=== PATIENT | male | born 1940 | race Caucasian/White ===

== ENCOUNTER 2018-11-29 22:23 | Inpatient (IN) | payer OTHER ==
--- OUTSIDE RECORDS SUMMARY | 2018-11-29 22:26 | XMS REPORT | Clinical Summary ---
:1940 Author Organization [facility] Address [address] [place] [address] Care Team Providers Name Role Phone Paula Primary Care Provider Allergies No Known Allergies Medications Not on file Active Problems Not on file Social History Tobacco Use Types Packs/Day Years Used Date Never Assessed Sex Assigned at Date Recorded Not on file Job Start Date Occupation Industry Not on file Not on file Not on file Travel History Travel Start Travel End No recent travel history available. Last Filed Vital Signs Not on file Plan of Treatment Not on file Results Not on fileafter 11/28/2017 Insurance Payer Benefit Plan / Subscriber ID Type Phone Address Group [employer] - MEDICARE [employer] MED[employer]ARE HMO xxxxxxxx [phone] [address] [id number] [address] (Home) [place] [address]
--- OUTSIDE RECORDS SUMMARY | 2018-11-29 22:26 | XMS REPORT | Clinical Summary ---
:1940 Author Organization [facility] Address [address] [place] [address] Care Team Providers Name Role Phone Jaspal Ramos MD Primary Care Provider Allergies No Known Allergies Medications Medication Sig Dispensed Refills Start Date End Date Status atorvastatin Take 40 mg by 0 08/14/2018 Active (LIPITOR) 40 MG mouth every tablet evening. metoprolol tartrate TAKE 1/2 TABLET 3 08/21/2018 Active (LOPRESSOR) 100 mg BY MOUTH 2 TIMES tablet EVERY DAY allopurinol Take 300 mg by 1 08/08/2018 Active (ZYLOPRIM) 300 MG mouth daily. tablet pantoprazole Take 40 mg by 1 10/11/2018 Active (PROTONIX) 40 MG EC mouth daily. tablet aspirin (ECOTRIN) 81 Take 81 mg by 0 Active MG enteric coated mouth daily. tablet isosorbide Take 30 mg by 0 Active mononitrate (IMDUR) mouth every 30 MG 24 hr tablet morning. traMADol (ULTRAM) 50 Take 1 tablet (50 30 tablet 0 11/26/2018 12/01/2018 Active mg tablet mg total) by mouth every 6 (six) hours as needed for severe pain for up to 5 days. SUPREP BOWEL PREP Take 2 Bottles 354 mL 0 11/13/2018 11/13/2018 KIT 17.5-3.13-1.6 (354 mL total) by gram recon soln mouth once for 1 dose. Take as directed by physician Active Problems Problem Noted Date Colon cancer 11/21/2018 Encounters Date Type Specialty Care Team Description 11/22/2018 Anesthesia Event General Surgery Kassidy Hansen, FLOATMAN 11/22/2018 Surgery General Surgery Jonn Mora MD LAPAROSCOPY, REVISION OF ANASTOMOSIS, DRAINAGE OF HEMATOMA 11/21/2018 Anesthesia Event General Surgery Shanna Machado, LINO 11/21/2018 Surgery General Surgery Jonn Mora SINGLE INCISION MD Toño LAPAROSCOPIC RIGHT COLECTOMY 11/21/2018 - Hospital Encounter General Surgery Lobito Yañez Cancer of ascending 11/26/2018 [facility] colon (HCC) Jonn Nuno MD 11/15/2018 Pre-Admit Testing Pre-Admission Jonn Mora Preop testing Appointment Testing MD Toño (Primary Dx) 11/13/2018 Orders Only General Surgery Jonn Mora MD 10/30/2018 Orders Only General Surgery Jonn Mora MD 10/24/2018 Pre-Admit Testing Pre-Admission Jonn Mora Preop testing Appointment Testing MD Toño (Primary Dx) 10/24/2018 Office Visit General Surgery Jonn Mora Malignant neoplasm MD Toño of ascending colon (HCC) (Primary Dx) after 11/28/2017 Family History Medical History Relation Name Comments Hypertension Father Stroke Father Relation Name Status Comments Father Social History Tobacco Use Types Packs/Day Years Used Date Former Smoker Cigarettes 42 Quit: 1997 Smokeless Tobacco: Never Used Alcohol Use Drinks/Week oz/Week Comments Yes when young Alcohol Habits Answer Date Recorded How often do you have a drink containing alcohol? Never 10/24/2018 How many drinks containing alcohol do you have on a typical Not asked day when you are drinking? How often do you have six or more drinks on one occasion? Not asked Sex Assigned at Date Recorded Not on file Job Start Date Occupation Industry Not on file Not on file Not on file Travel History Travel Start Travel End No recent travel history available. Last Filed Vital Signs Vital Sign Reading Time Taken Blood Pressure 129/59 11/26/2018 12:13 PM WEATHER REPORTER Pulse 96 11/26/2018 12:13 PM WEATHER REPORTER Temperature 36.9 C (98.5 F) 11/26/2018 12:13 PM WEATHER REPORTER Respiratory Rate 20 11/26/2018 12:13 PM WEATHER REPORTER Oxygen Saturation 94% 11/26/2018 12:13 PM WEATHER REPORTER Inhaled Oxygen Concentration - - Weight 84.2 kg (185 lb 11.2 oz) 11/21/2018 5:15 AM WEATHER REPORTER Height 182.9 cm (6') 11/21/2018 5:15 AM WEATHER REPORTER Body Mass Index 25.19 11/21/2018 5:15 AM WEATHER REPORTER Plan of Treatment Date Type Specialty Care Team Description 12/11/2018 Office Visit General Surgery Jonn Mora MD [address] [facility] [address] [facility] [place], [place] [id number] Health Maintenance Due Date Last Done Comments SHINGLES VACCINES (1 of 2) 1989 PNEUMOCOCCAL POLYSACCHARIDE VACCINE AGE 65 AND OVER 2004 PNEUMOCOCCAL-13 2004 INFLUENZA VACCINE 06/12/2018 Procedures Procedure Name Priority Date/Time Associated Comments Diagnosis ESTIMATED GFR Routine 11/26/2018 5:38 Results for this AM WEATHER REPORTER procedure are in the results section. HEMOGLOBIN & Routine 11/26/2018 5:38 Results for this HEMATOCRIT AM WEATHER REPORTER procedure are in the results section. BASIC METABOLIC PANEL Routine 11/26/2018 5:38 Results for this AM WEATHER REPORTER procedure are in the results section. ESTIMATED GFR Routine 11/25/2018 9:03 Results for this AM WEATHER REPORTER procedure are in the results section. BASIC METABOLIC PANEL Routine 11/25/2018 9:03 Results for this AM WEATHER REPORTER procedure are in the results section. HC COMPLETE BLD COUNT Routine 11/25/2018 7:30 Results for this W/AUTO DIFF AM WEATHER REPORTER procedure are in the results section. ESTIMATED GFR Routine 11/24/2018 4:05 Results for this AM WEATHER REPORTER procedure are in the results section. PHOSPHORUS LEVEL Routine 11/24/2018 4:05 Results for this AM WEATHER REPORTER procedure are in the results section. MAGNESIUM LEVEL Routine 11/24/2018 4:05 Results for this AM WEATHER REPORTER procedure are in the results section. BASIC METABOLIC PANEL Routine 11/24/2018 4:05 Results for this AM WEATHER REPORTER procedure are in the results section. HC COMPLETE BLD COUNT Routine 11/24/2018 4:05 Results for this W/AUTO DIFF AM WEATHER REPORTER procedure are in the results section. HEMOGLOBIN & Timed 11/23/2018 3:00 Results for this HEMATOCRIT PM WEATHER REPORTER procedure are in the results section. HC COMPLETE BLD COUNT Routine 11/23/2018 4:05 Results for this W/AUTO DIFF AM WEATHER REPORTER procedure are in the results section. ESTIMATED GFR Routine 11/23/2018 4:00 Results for this AM WEATHER REPORTER procedure are in the results section. PHOSPHORUS LEVEL Routine 11/23/2018 4:00 Results for this AM WEATHER REPORTER procedure are in the results section. MAGNESIUM LEVEL Routine 11/23/2018 4:00 Results for this AM WEATHER REPORTER procedure are in the results section. BASIC METABOLIC PANEL Routine 11/23/2018 4:00 Results for this AM WEATHER REPORTER procedure are in the results section. HC COMPLETE BLD COUNT Timed 11/22/2018 9:15 Results for this W/AUTO DIFF PM WEATHER REPORTER procedure are in the results section. ESTIMATED GFR Timed 11/22/2018 8:00 Results for this PM WEATHER REPORTER procedure are in the results section. BASIC METABOLIC PANEL Timed 11/22/2018 8:00 Results for this PM WEATHER REPORTER procedure are in the results section. SURGICAL PATHOLOGY Routine 11/22/2018 5:30 Results for this REQUEST PM WEATHER REPORTER procedure are in the results section. TRANSFUSE RED BLOOD Routine 11/22/2018 5:20 CELLS PM WEATHER REPORTER TRANSFUSE RED BLOOD STAT 11/22/2018 4:09 CELLS PM WEATHER REPORTER OR AN EMERGENT Routine 11/22/2018 3:52 ENDOTRACHEAL AIRWAY PM WEATHER REPORTER Procedure Note - Kassidy Hansen CRNA - 11/22/2018 3:52 PM WEATHER REPORTER ANESTHESIA INTUBATION Date/Time: 11/22/2018 3:25 PM Performed by: Kassidy Hansen CRNA Authorized by: Felipe Trejo MD Location: OR Urgency: Emergent Difficult Airway: No Anesthesiologist: Rodrigo Oates MD Resident/FLOATMAN/AA: Kassidy Hansen CRNA Performed by: resident/FLOATMAN/AA Consent Cannot be Obtained Due to Urgency: Yes Verbal Consent Obtained: No Written Consent Obtained: No Consent Given By: Patient Risks and Benefits were Discussed: No Patient Identity Confirmed by: Verbally with patient, arm band and hospital- assigned identification number Preoxygenated with 100% O2: Yes C-spine Precautions Maintained Throughout: No Mask Ventilation: Easy mask Final Airway Type: Endotracheal airway Final Endotracheal Airway: ETT Technique Used: Direct laryngoscopy Devices/Methods Used in Placement: Intubating stylet Insertion Site: Oral Blade Type: Ryan Laryngoscope Blade/Videolaryngoscope Blade Size: 3 ETT Size (mm): 8.0 Measured from: Lips ETT to Lips (cm): 24 Placement Verified by: CO2 detection, direct visualization and equal breath sounds Laryngoscopic view: Grade I - full view of glottis Rapid Sequence Induction (RSI): No Modified RSI: No Number of Attempts at Approach: 2 RYAN 2 UNSUCCEFULL. RYAN 3 SUCCESSFULL SIGMOIDECTOMY, 11/22/2018 2:50 PM bleeding LAPAROSCOPIC WEATHER REPORTER ESTIMATED GFR Timed 11/22/2018 12:15 PM Results for this WEATHER REPORTER procedure are in the results section. HC COMPLETE BLD COUNT Timed 11/22/2018 12:15 PM Results for this W/AUTO DIFF WEATHER REPORTER procedure are in the results section. PHOSPHORUS LEVEL Timed 11/22/2018 12:15 PM Results for this WEATHER REPORTER procedure are in the results section. BASIC METABOLIC PANEL Timed 11/22/2018 12:15 PM Results for this WEATHER REPORTER procedure are in the results section. ESTIMATED GFR Routine 11/22/2018 3:40 AM Results for this WEATHER REPORTER procedure are in the results section. PHOSPHORUS LEVEL Routine 11/22/2018 3:40 AM Results for this WEATHER REPORTER procedure are in the results section. MAGNESIUM LEVEL Routine 11/22/2018 3:40 AM Results for this WEATHER REPORTER procedure are in the results section. BASIC METABOLIC PANEL Routine 11/22/2018 3:40 AM Results for this WEATHER REPORTER procedure are in the results section. HC COMPLETE BLD COUNT Routine 11/22/2018 3:00 AM Results for this W/AUTO DIFF WEATHER REPORTER procedure are in the results section. SURGICAL PATHOLOGY REQUEST Routine 11/21/2018 1:12 PM Results for this WEATHER REPORTER procedure are in the results section. OR AN ELECTIVE Routine 11/21/2018 8:35 AM ENDOTRACHEAL AIRWAY WEATHER REPORTER Procedure Note - Yaima Krause CRNA - 11/21/2018 8:35 AM WEATHER REPORTER Airway Date/Time: 11/21/2018 8:02 AM Performed by: Yaima Krause CRNA Authorized by: Felipe Trejo MD Location: OR Urgency: Elective Difficult Airway: No Anesthesiologist: Felipe Trejo MD Resident/AMANDA/AA: Yaima Krause CRNA Performed by: resident/AMANDA/AA Preoxygenated with 100% O2: Yes C-spine Precautions Maintained Throughout: Yes Mask Ventilation: Easy mask (with 100mm OPA) Final Airway Type: Endotracheal airway Final Endotracheal Airway: ETT Cuffed: Yes Technique Used: Direct laryngoscopy Insertion Site: Oral Blade Type: Ryan Laryngoscope Blade/Videolaryngoscope Blade Size: 2 ETT Size (mm): 8.0 Cuff at minimum occlusion pressure: Yes Measured from: Gums ETT to Gums (cm): 22 Placement Verified by: CO2 detection, direct visualization and equal breath sounds Laryngoscopic view: Grade I - full view of glottis Rapid Sequence Induction (RSI): No Modified RSI: No Number of Attempts at Approach: 2 Eyes taped at LOC and prior to any airway manipulation. First attempt by LEONOR Staples with MAC 3 blade no view obtained, second attempt by Trevor Mclean CRNA with Ryan 2 grade 1 view, cords clear, ETT passed easily. MAGNESIUM LEVEL STAT 11/21/2018 8:25 AM WEATHER REPORTER IONIZED CALCIUM, ARTERIAL STAT 11/21/2018 8:25 AM WEATHER REPORTER GLUCOSE LEVEL, SYRINGE STAT 11/21/2018 8:25 AM WEATHER REPORTER HEMOGLOBIN, SYRINGE STAT 11/21/2018 8:25 AM WEATHER REPORTER POTASSIUM, SYRINGE STAT 11/21/2018 8:25 AM WEATHER REPORTER SODIUM LEVEL, SYRINGE STAT 11/21/2018 8:25 AM WEATHER REPORTER ARTERIAL BLOOD GAS STAT 11/21/2018 8:25 AM WEATHER REPORTER LACTIC ACID, SYRINGE STAT 11/21/2018 8:25 AM WEATHER REPORTER ARTERIAL LINE Routine 11/21/2018 8:14 AM WEATHER REPORTER Procedure Note - Felipe Trejo MD - 11/21/2018 8:14 AM WEATHER REPORTER Arterial line Performed by: Felipe Trejo MD Authorized by: Felipe Trejo MD Patient Location: OR Staff: Performed by: Anesthesiologist Pre-procedure: patient identified, IV checked, site and side verified, risks and benefits discussed, procedure verified, surgical consent complete, patient position confirmed, monitors and equipment checked and pre-op evaluation complete MSBT: antiseptic used, all elements of maximal sterile barrier technique followed, hand hygiene performed, cap/gown used by other personnel and solutions labeled Indications: Indications: hemodynamic monitoring Anesthesia: Anesthesia: General Procedure Details: Arterial Line placement: Placed post induction Line placement site: Radial Line placement side: Right Arterial line gauge: 20 G Number of attempts: 1 Ultrasound guidance used: No Post-procedure: Post-procedure: Sterile dressing applied Post procedure circulation, sensation, movement: Unchanged and normal Patient tolerance: Patient tolerated the procedure well with no immediate complications COLECTOMY, PARTIAL, 11/21/2018 7:30 AM WEATHER REPORTER Cancer of ascending colon LAPAROSCOPIC (HCC) Special Needs EST 2 HRS, TF~1400, REQ 1200 START ECG PRE/POST OP Routine 11/15/2018 1:02 PM Preop testing Results for this WEATHER REPORTER procedure are in the results section. CARCINOEMBRYONIC ANTIGEN Routine 11/15/2018 12:52 PM Preop testing Results for this (CEA) WEATHER REPORTER procedure are in the results section. PREPARE RBC Routine 11/15/2018 12:43 PM Results for this WEATHER REPORTER procedure are in the results section. PREPARE RBC Routine 11/15/2018 12:43 PM Results for this WEATHER REPORTER procedure are in the results section. TYPE AND SCREEN Routine 11/15/2018 12:43 PM Preop testing Results for this WEATHER REPORTER procedure are in the results section. ESTIMATED GFR Routine 10/24/2018 1:36 PM Results for this WEATHER REPORTER procedure are in the results section. COMPREHENSIVE METABOLIC Routine 10/24/2018 1:36 PM Preop testing Results for this PANEL WEATHER REPORTER procedure are in the results section. CBC HEMOGRAM Routine 10/24/2018 1:36 PM Preop testing Results for this WEATHER REPORTER procedure are in the results section. after 11/28/2017 Results Estimated GFR (11/26/2018 5:38 AM WEATHER REPORTER)Only the most recent of8 resultswithin the time period is included. Estimated GFR 81 mL/min/1.73 m2 [facility] Comment: HOSPITAL CatergoryUnitsInterpretation G1 >=90 Normal or high G2 60-89Mildly decreased [id number] to moderately decreased [id number] to severely decreased G4 15-29Severely decreased G5 <15Kidney failure The eGFR was calculated using the Chronic Kidney Disease Epidemiology Collaboration (CKD-EPI) equation. Interpretation is based on recommendations of the National Kidney Foundation-Kidney Disease Outcomes Quality Initiative (NKF-KDOQI) published in 2014. Specimen Plasma specimen Performing Organization Address City/State/Zipcode Phone Number [facility] DEPARTMENT OF PATHOLOGY AND [address] [place] [address] GENOMIC MEDICINE [address] [address] Hemoglobin & hematocrit (11/26/2018 5:38 AM WEATHER REPORTER)Only the most recent of2 resultswithin the time period is included. HGB 8.2 (L) 14.0 - 18.0 g/dL [facility] HCT 24.3 (L) 41.0 - 51.0 % [facility] Specimen Blood Performing Organization Address City/[facility] Phone [facility] DEPARTMENT OF PATHOLOGY AND [address] [address] Basic metabolic panel (11/26/2018 5:38 AM WEATHER REPORTER)Only the most recent of7 resultswithin the time period is included. Sodium 137 135 - 148 mEq/L [facility] Potassium 3.6 3.5 - 5.0 mEq/L [facility] Chloride 105 98 - 112 mEq/L [facility] CO2 23 (L) 24 - 31 mEq/L [facility] Anion gap 9@ANIO 7 - 15 mEq/L [facility] BUN 23 8 - 23 mg/dL [facility] Creatinine 0.88 0.70 - 1.20 mg/dL [facility] Glucose 106 (H) 65 - 99 mg/dL [facility] Calcium 8.3 (L) 8.8 - 10.2 mg/dL [facility] Specimen Plasma specimen Performing Organization Address City/[facility] Phone Number [facility] DEPARTMENT OF PATHOLOGY AND [address] [place] [address] CBC with platelet and differential (11/25/2018 7:30 AM WEATHER REPORTER)Only the most recent of6 resultswithin the time period is included. WBC 11.48 (H) 4.50 - 11.00 k/uL [facility] RBC 2.61 (L) 4.40 - 6.00 m/uL [facility] HGB 8.5 (L) 14.0 - 18.0 g/dL [facility] HCT 24.9 (L) 41.0 - 51.0 % [facility] MCV 95.4 82.0 - 100.0 fL [facility] MCH 32.6 27.0 - 34.0 pg [facility] MCHC 34.1 31.0 - 37.0 g/dL [facility] RDW - SD 58.3 (H) 37.0 - 55.0 fL [facility] MPV 10.3 8.8 - 13.2 fL [facility] Platelet count 101 (L) 150 - 400 k/uL [facility] Nucleated RBC 0.00 /100 WBC [facility] Neutrophils 80.0 (H) 39.0 - 69.0 % [facility] Lymphocytes 8.9 (L) 25.0 - 45.0 % [facility] Monocytes 8.9 0.0 - 10.0 % [facility] Eosinophils 1.1 0.0 - 5.0 % [facility] Basophils 0.3 0.0 - 1.0 % [facility] Immature granulocytes 0.8Comment: "Immature 0.0 - 1.0 % [facility] granulocytes" HOSPITAL (promyelocytes, myelocytes, metamyelocytes) Specimen Blood Performing Organization Address City/[facility] Phone Number [facility] DEPARTMENT OF PATHOLOGY AND [address] [place] [address] Phosphorus level (11/24/2018 4:05 AM WEATHER REPORTER)Only the most recent of4 resultswithin the time period is included. Phosphorus 1.8 (L) 2.4 - 4.5 mg/dL [facility] Specimen Plasma specimen Performing Organization Address City/[facility] Phone Number [facility] DEPARTMENT OF PATHOLOGY AND [address] [place] [address] Magnesium level (11/24/2018 4:05 AM WEATHER REPORTER)Only the most recent of4 resultswithin the time period is included. Magnesium 1.9 1.6 - 2.4 mg/dL [facility] Specimen Plasma specimen Performing Organization Address City/[facility] Phone Number [facility] DEPARTMENT OF PATHOLOGY AND [address] [place] [address] Surgical pathology request (11/22/2018 5:30 PM WEATHER REPORTER)Only the most recent of2 resultswithin the time period is included. [facility] DEPARTMENT OF PATHOLOGY AND GENOMIC MEDICINE Surgical pathology report See link below for PDF [facility] DEPARTMENT OF Lab Report PATHOLOGY AND GENOMIC MEDICINE Result status This is Final Report [facility] DEPARTMENT OF for [id number] PATHOLOGY AND GENOMIC MEDICINE Performing Organization Address City/[facility]/Zipcode Phone Number [facility] DEPARTMENT OF PATHOLOGY AND [address] [place] [address] GENOMIC MEDICINE Transfuse RBC (11/22/2018 5:20 PM WEATHER REPORTER)Only the most recent of2 resultswithin the time period is included.Sodium level, syringe (11/21/2018 8:25 AM WEATHER REPORTER) Sodium, syringe 144 135 - 148 mEq/L [facility] Specimen Blood Performing Organization Address City/State/Zipcode Phone Number [facility] DEPARTMENT OF PATHOLOGY AND [address] [place] [phone] Potassium, syringe (11/21/2018 8:25 AM WEATHER REPORTER) Potassium, syringe 3.3 (L) 3.5 - 5.0 mEq/L [facility] Specimen Blood Performing Organization Address [facility] Phone Number [facility] DEPARTMENT OF PATHOLOGY AND [address] [place] [phone] Lactic acid, syringe (11/21/2018 8:25 AM WEATHER REPORTER) Lactic acid, syringe 0.9 0.5 - 2.2 mmol/L [facility] Specimen Blood Performing Organization Address [facility] Phone Number [facility] DEPARTMENT OF PATHOLOGY AND [address] [place] [phone] Ionized calcium, arterial (11/21/2018 8:25 AM WEATHER REPORTER) Ionized calcium, arterial 1.05 (L) 1.11 - 1.32 mmol/L [facility] Specimen Blood Performing Organization Address City/[facility] Phone Number [facility] DEPARTMENT OF PATHOLOGY AND [address] [place] [phone] Hemoglobin, syringe (11/21/2018 8:25 AM WEATHER REPORTER) Hemoglobin, syringe 11.7 (L) 14.0 - 18.0 g/dL [facility] Specimen Blood Performing Organization Address City/State/Zipcode Phone Number [facility] DEPARTMENT OF PATHOLOGY AND [address] [place] [phone] [address] Glucose level, syringe (11/21/2018 8:25 AM WEATHER REPORTER) Glucose, syringe 85 65 - 99 mg/dL [facility] Specimen Blood Performing Organization Address City/[facility] Phone Number [facility] DEPARTMENT OF PATHOLOGY AND [address] [place] [phone] [address] Arterial blood gas (11/21/2018 8:25 AM WEATHER REPORTER) pH, arterial 7.37 7.35 - 7.45 [facility] pCO2, arterial 36 35 - 45 mmHg [facility] pO2, arterial 196 (H) 80 - 90 mmHg [facility] Bicarbonate, arterial 20.4 (L) 21.0 - 28.0 mmol/L [facility] Base excess, arterial -4 (L) -2 - 2 mEq/L [facility] O2 saturation, arterial 99 95 - 100 % [facility] Specimen Blood Performing Organization Address [facility] Phone Number [facility] DEPARTMENT OF PATHOLOGY AND [address] [place] [phone] [place] [phone] ECG Pre/Post Op (11/15/2018 1:02 PM WEATHER REPORTER) Ventricular rate 68 [facility] Atrial rate 68 [facility] OR interval 248 [facility] QRSD interval 110 [facility] QT interval 424 [facility] QTC interval 450 [facility] P axis 1 20 [facility] QRS axis 1 -5 [facility] T wave axis 2 [facility] EKG impression Sinus rhythm with 1st degree AV [facility] block-Anteroseptal infarct , age undetermined-Abnormal ECG-No previous ECGs available- Narrative Performed At Performing Organization Address City/[facility] Phone Number [facility] MUSE [address] [place] [phone] Carcinoembryonic antigen (CEA) (11/15/2018 12:52 PM WEATHER REPORTER) CEA 2.8 0.0 - 3.8 ng/mL [facility] Comment: Reference range for heavy smokers:0.0 - 5.5 ng/mL The JENNY Kathie 8000 CEA immunoassay was used. Results obtained with different assay methods or kits should not be used interchangeably and may be different. Specimen Serum Performing Organization Address City/[facility] Phone Number [facility] DEPARTMENT OF PATHOLOGY AND [address] [place] [address] Prepare RBC (11/15/2018 12:43 PM WEATHER REPORTER)Only the most recent of2 resultswithin the time period is included. Product name Red Blood Cells -1, [facility] Unit number [id number] [facility] Product code [id number] [facility] Dispense status Transfused [facility] Blood expiration date [facility] Blood type code 6200 [facility] Blood type A POSITIVE [facility] Product name Red Blood Cells 1, [facility] Unit number [id number] [facility] Product code [id number] [facility] Dispense status Returned to BB not [facility] Blood expiration date [facility] Blood type code 6200 [facility] Blood type A POSITIVE [facility] Performing Organization Address City/[facility] Phone Number [facility] DEPARTMENT OF PATHOLOGY AND [address] [place] [address] Type and screen (11/15/2018 12:43 PM WEATHER REPORTER) ABO grouping A [facility] Rh type POS [facility] Antibody screen (gel) NEG [facility] Specimen Blood Performing Organization Address City/[facility] Phone Number [facility] DEPARTMENT OF PATHOLOGY AND [address] [place] [address] CBC hemogram (10/24/2018 1:36 PM WEATHER REPORTER) WBC 7.84 4.50 - 11.00 k/uL [facility] RBC 3.88 (L) 4.40 - 6.00 m/uL [facility] HGB 13.0 (L) 14.0 - 18.0 g/dL [facility] HCT 38.0 (L) 41.0 - 51.0 % [facility] MCV 97.9 82.0 - 100.0 fL [facility] MCH 33.5 27.0 - 34.0 pg [facility] MCHC 34.2 31.0 - 37.0 g/dL [facility] RDW - SD 50.7 37.0 - 55.0 fL [facility] MPV 10.2 8.8 - 13.2 fL [facility] Platelet count 162 150 - 400 k/uL [facility] Nucleated RBC 0.00 /100 WBC [facility] Specimen Blood Performing Organization Address City/State/Zipcode Phone Number [facility] DEPARTMENT OF PATHOLOGY AND [address] [place] [address] GENOMIC MEDICINE [address] [address] Comprehensive metabolic panel (10/24/2018 1:36 PM WEATHER REPORTER) Sodium 139 135 - 148 mEq/L [facility] Potassium 4.2 3.5 - 5.0 mEq/L [facility] Chloride 102 98 - 112 mEq/L [facility] CO2 24 24 - 31 mEq/L [facility] Anion gap 13@ANIO 7 - 15 mEq/L [facility] BUN 14 8 - 23 mg/dL [facility] Creatinine 0.98 0.70 - 1.20 mg/dL [facility] Glucose 93 65 - 99 mg/dL [facility] Calcium 9.1 8.8 - 10.2 mg/dL [facility] Protein 6.1 (L) 6.3 - 8.3 g/dL [facility] Comment: HOSPITAL 4.6-7.0 g/dL 1 week 4.4-7.6 g/dL 7 months-1year5.1-7.3 g/dL 1-2 years5.6-7.5 g/dL >3 years6.0-8.0 g/dL 18-150 6.3-8.3 g/dL Albumin 3.5 3.5 - 5.0 g/dL [facility] A/G ratio 1.3 0.7 - 3.8 [facility] Alkaline phosphatase 95 40 - 129 U/L [facility] AST 26 10 - 50 U/L [facility] ALT 21 5 - 50 U/L [facility] Total bilirubin 1.2 0.0 - 1.2 mg/dL [facility] Specimen Plasma specimen Performing Organization Address City/State/Zipcode Phone Number [facility] DEPARTMENT OF PATHOLOGY AND [address] [place] [address] GENOMIC MEDICINE [facility] [address] [place] [address] after 11/28/2017 Insurance Payer Benefit Plan / Group Subscriber ID Type Phone Address [employer] MEDICARE AETNA MEDICARE HMO/PPO [facility] xxxxxxxx HMO ([place] [address] Advance Directives Patient has advance care planning documents, and code status on file. For more information, please contact:[address] [address] Code Status Date Activated Date Inactivated Comments Full Code 11/21/2018 1:01 PM 11/26/2018 9:19 PM Code Status decision reached by: Patient
[2018-11-29] MEDS ORDERED: NA CHLORIDE 0.9% 1,000 ML ONE (23:19)
[2018-11-29] MEDS ORDERED: ACETAMINOPHEN 325 MG TABLET ONE (23:19)
[2018-11-29] MEDS ORDERED: CEFEPIME 1 GM/100 ML BAG IV ONE ×2 (23:20→23:57)
[2018-11-30 00:01] LABS: Absolute Lymphocytes (CBC) 0.3 K/uL (0.7-4.9); Absolute Monocytes 0.5 K/uL (0.1-1.3); Absolute Neutrophil 11.2 K/uL (1.8-8.0); Basophils % 0.4 % (0-1.3); Eosinophils % 0.5 % (0-4.4); Hematocrit 26.1 % (39.6-49.0); Lymphocytes % 2.9 % (15.3-44.8); MPV 8.6 fL (7.6-11.3); Monocytes % 4.5 % (3.3-12.3); RBC Red Blood Cell Count 2.73 M/uL (4.33-5.43)
[2018-11-30 00:07] LABS: Protime INR 1.37
[2018-11-30 00:17] LABS: Urine Blood NEGATIVE (NEG); Urine Glucose NEGATIVE (NEG); Urine Protein 2+ (NEG); Urine pH 5.5 (5.0-7.0)
[2018-11-30 00:20] LABS: Blood Morphology Comment NOT SEEN (NOT SEEN); Platelet Estimate ADEQ; Toxic Granulation 2+
[2018-11-30 00:33] LABS: Albumin 2.4 g/dL (3.4-5.0); Bilirubin Direct 0.8 mg/dL (0-0.2); Bilirubin Total 2.9 mg/dL (0.2-1.0); Potassium 3.1 mmol/L (3.5-5.1); Protein, Total 4.7 g/dL (6.4-8.2)
[2018-11-30 00:34] LABS: Troponin (Emerg Dept Use Only) 0.71 ng/mL (0.0-0.045)
[2018-11-30 00:43] LABS: Urine Amorphous Sediment 1+ /HPF (NONE SEEN); Urine Bacteria <20 /HPF (NONE SEEN); Urine Culture Reflex Order NOT NEEDED; Urine Mucus LIGHT /HPF (NONE SEEN); Urine RBC NONE SEEN /HPF (NONE SEEN)
[2018-11-30] MEDS ORDERED: METRONIDAZOLE 500mg IVPB 500 MG/100 ML BAG IV ONE (02:52)
[2018-11-30] MEDS ORDERED: NA CHLORIDE 0.9% 1,000 ML ONE (02:52)
--- NOTE | 2018-11-30 03:02 | EDPHYS ---
Physician Documentation [facility] Name: Gautam Ramirez Jr Age: 78 yrs Sex: Male : 1940 Arrival Date: 11/29/2018 Time: 22:27 Bed 26 Private MD: ED Physician Anton Short HPI: 11/30 02:56 This 78 yrs old Male presents to ER via Ambulatory with complaints of Fever. gs 02:56 Onset: The symptoms/episode began/occurred acutely, just prior to arrival. Modifying gs factors: there are no obvious modifying factors. Associated signs and symptoms: Pertinent positives: abdominal pain, chills. Severity of symptoms: At their worst the symptoms were moderate in the emergency department the symptoms are unchanged. The patient has experienced similar episodes in the past, a few times. The patient has been recently seen by a physician: [facility]. Historical: - Allergies: 11/29 22:54 No Known Allergies; bb - Home Meds: 22:54 isosorbide mononitrate 30 mg Oral Tb24 1 tab once daily [Active]; metoprolol tartrate bb 100 mg Oral tab 1 tab once daily [Active]; atorvastatin 40 mg oral tab 1 tab once daily [Active]; allopurinol 300 mg Oral tab 1 tab once daily [Active]; pantoprazole 40 mg oral TbEC 1 tab once daily [Active]; aspirin 81 mg Oral chew 1 tab once daily [Active]; Tramadol Oral [Active]; - PMHx: 22:54 CAD; Hyperlipidemia; Hypertension; bb - PSHx: 22:54 Angioplasty; stents; colon surgery; bb - Immunization history:: Adult Immunizations up to date. - Social history:: Smoking status: unknown. - Ebola Screening: : No symptoms or risks identified at this time. ROS: 11/30 02:56 All other systems are negative. gs Exam: 02:56 Head/Face: Normocephalic, atraumatic. Eyes: Pupils equal round and reactive to light, gs extra-ocular motions intact. Lids and lashes normal. Conjunctiva and sclera are non-icteric and not injected. Cornea within normal limits. Periorbital areas with no swelling, redness, or edema. ENT: Nares patent. No nasal discharge, no septal abnormalities noted. Tympanic membranes are normal and external auditory canals are clear. Oropharynx with no redness, swelling, or masses, exudates, or evidence of obstruction, uvula midline. Mucous membranes moist. Neck: Trachea midline, no thyromegaly or masses palpated, and no cervical lymphadenopathy. Supple, full range of motion without nuchal rigidity, or vertebral point tenderness. No Meningismus. Chest/axilla: Normal chest wall appearance and motion. Nontender with no deformity. No lesions are appreciated. Cardiovascular: Regular rate and rhythm with a normal S1 and S2. No gallops, murmurs, or rubs. Normal PMI, no JVD. No pulse deficits. Respiratory: Lungs have equal breath sounds bilaterally, clear to auscultation and percussion. No rales, rhonchi or wheezes noted. No increased work of breathing, no retractions or nasal flaring. Back: No spinal tenderness. No costovertebral tenderness. Full range of motion. Skin: Warm, dry with normal turgor. Normal color with no rashes, no lesions, and no evidence of cellulitis. MS/ Extremity: Pulses equal, no cyanosis. Neurovascular intact. Full, normal range of motion. Neuro: Awake and alert, GCS 15, oriented to person, place, time, and situation. Cranial nerves II-XII grossly intact. Motor strength 5/5 in all extremities. Sensory grossly intact. Cerebellar exam normal. Normal gait. 02:56 Constitutional: The patient appears alert, awake. 02:56 ECG was reviewed by the Attending Physician. 02:56 Abdomen/GI: Palpation: moderate abdominal tenderness, in all quadrants, rebound tenderness, is not appreciated. Vital Signs: 11/29 22:54 BP 129 / 60; Pulse 87; Resp 20 S; Temp 102.4(O); Pulse Ox 92% on R/A; Weight 81.65 kg bb (R); Height 6 ft. 1 in. (185.42 cm) (R); Pain 5/10; 11/30 00:10 BP 112 / 68; Pulse 70; Resp 18; Pulse Ox 100% on R/A; Pain 2/10; mg2 01:09 BP 114 / 65; Pulse 70; Resp 18; Temp 97.9(O); Pulse Ox 93% on R/A; Pain 0/10; mg2 02:58 BP 102 / 69; Pulse 63; Resp 18; Temp 98.4; Pulse Ox 96% on R/A; Pain 0/10; mg2 03:31 BP 104 / 53; Pulse 61; Resp 16 S; Temp 98.5(O); Pulse Ox 92% on R/A; bb 04:39 BP 109 / 65; Pulse 56; Resp 18 S; Pulse Ox 92% on R/A; bb 11/29 22:54 Body Mass Index 23.75 (81.65 kg, 185.42 cm) bb MDM: 11/29 22:59 Patient medically screened. 11/30 02:56 Differential diagnosis: bacterial infection, URI, pneumonia UTI, sepsis. Data reviewed: vital signs, nurses notes, old medical records, lab test result(s), EKG, radiologic studies. Response to treatment: the patient's symptoms have markedly improved after treatment, and as a result, I will admit patient. 11/29 23:04 Order name: Basic Metabolic Panel 11/29 23:04 Order name: Blood Culture Adult (2) 11/29 23:04 Order name: CBC with Diff; Complete Time: 00:34 11/29 23:04 Order name: CPK 11/29 23:04 Order name: Lactate; Complete Time: 00:34 11/29 23:04 Order name: LFT's 11/29 23:04 Order name: Lipase 11/29 23:04 Order name: Procalcitonin; Complete Time: 01:23 11/29 23:04 Order name: Protime (+inr); Complete Time: 00:34 11/29 23:04 Order name: Troponin (emerg Dept Use Only); Complete Time: 01:23 11/29 23:04 Order name: Urine Microscopic Only; Complete Time: 01:23 11/29 23:04 Order name: Flu; Complete Time: 00:34 11/29 23:06 Order name: Basic Metabolic Panel; Complete Time: 01:23 EDAZ 11/29 23:06 Order name: Blood Culture [facility] 11/29 23:04 Order name: Chest Single View XRAY 11/29 23:04 Order name: CT Abd/Pelvis - W/Contrast 11/29 23:06 Order name: Creatine Phosphokinase; Complete Time: 01:23 [facility] 11/29 23:06 Order name: Liver (Hepatic) Function; Complete Time: 01:23 [facility] 11/29 23:06 Order name: Lipase; Complete Time: :23 [facility] 11/30 00:13 Order name: Urine Dipstick--Ancillary (enter results) mw2 11/30 00:17 Order name: Urine Dipstick-Ancillary; Complete Time: 00:34 [facility] 11/30 00:20 Order name: Manual Differential; Complete Time: 00:34 [facility] 11/30 05:01 Order name: CONS Physician Consult [facility] 11/30 05:01 Order name: Heart Healthy [facility] 11/30 05:01 Order name: Urinalysis [facility] 11/29 23:04 Order name: Accucheck; Complete Time: 00:00 11/29 23:04 Order name: Cardiac monitoring; Complete Time: 00:00 11/29 23:04 Order name: EKG - Nurse/Tech; Complete Time: 00:00 11/29 23:04 Order name: IV Saline Lock - Large Bore; Complete Time: 00:00 11/29 23:04 Order name: Labs collected and sent; Complete Time: 00:00 11/29 23:04 Order name: O2 Per Protocol; Complete Time: 00:01 11/29 23:04 Order name: O2 Sat Monitoring; Complete Time: 00:00 11/29 23:04 Order name: Urine Dipstick-Ancillary (obtain specimen); Complete Time: 00:10 gs EC:56 Rate is 67 beats/min. Rhythm is regular. CA interval is prolonged. QRS interval is gs normal. QT interval is prolonged. Q waves are Old. Clinical impression: Abnormal EKG without significant change. Interpreted by me. Administered Medications: 11/29 23:59 Drug: Cefepime 1 grams Route: IVPB; Rate: 200 ml/hr; Infused Over: 30 mins; Site: left mg2 wrist; 11/30 00:30 Follow up: Response: No adverse reaction; IV Status: Completed infusion mg2 00:00 Drug: Tylenol 650 mg Route: PO; mg2 23:30 Follow up: Response: No adverse reaction; Temperature is decreased mg2 00:00 Drug: NS 0.9% 1000 ml Route: IV; Rate: 1 bolus; Site: left wrist; mg2 00:30 Follow up: Response: No adverse reaction; IV Status: Completed infusion mg2 02:48 Drug: Flagyl 500 mg Volume: 100 ml; Route: IVPB; Rate: 200 ml/hr; Infused Over: 30 mg2 mins; Site: left wrist; 03:32 Follow up: IV Status: Completed infusion; IV Intake: 100ml bb 02:48 Drug: NS 0.9% 1000 ml Route: IV; Rate: 125 ml/hr; Site: left wrist; mg2 05:13 Follow up: IV Status: Infusion continued upon admission bb Disposition: 11/30/18 03:00 Hospitalization ordered by Matthew Martin for Inpatient Admission. Preliminary diagnosis is Other sepsis. - Bed requested for Telemetry/MedSurg (Inpatient). - Status is Inpatient Admission. bb - Condition is Stable. - Problem is new. - Symptoms have improved. UTI on Admission? No Critical care time excluding procedures: 02:56 Critical care time: Bedside Care: 10 minutes, Consultation: 10 minutes, Family gs Intervention: 10 minutes. Total time: 30 minutes Signatures: Dispatcher Med[employer] EDAZ Vijaya Reza RN RN mw Ballard, Brenda, RN RN bb Starr, Gregory, MD MD gs Gardose, Michele, RN RN mg2 Corrections: (The following items were deleted from the chart) 03:30 03:00 Hospitalization Ordered by Matthew Martin MD for Inpatient Admission. Preliminary mw diagnosis is Other sepsis. Bed requested for Telemetry/MedSurg (Inpatient). Status is Inpatient Admission. Condition is Stable. Problem is new. Symptoms have improved. UTI on Admission? No. gs 05:41 03:30 11/30/2018 03:00 Hospitalization Ordered by Matthew Martin MD for Inpatient bb Admission. Preliminary diagnosis is Other sepsis. Bed requested for Telemetry/MedSurg (Inpatient). Status is Inpatient Admission. Condition is Stable. Problem is new. Symptoms have improved. UTI on Admission? No. mw
--- NOTE | 2018-11-30 03:02 | ER ---
Nurse's Notes [facility] Name: Gautam Ramirez Jr Age: 78 yrs Sex: Male : 1940 Arrival Date: 11/29/2018 Time: 22:27 Bed 26 Private MD: Diagnosis: Other sepsis Presentation: 11/29 22:51 Presenting complaint: Patient states: he had surgery for colon cancer on the then bb had to have surgery again the next day for a leak and tonight he started running fever. Transition of care: patient was not received from another setting of care. Onset of symptoms was November 29, 2018. Risk Assessment: Do you want to hurt yourself or someone else? Patient reports no desire to harm self or others. Initial Sepsis Screen: Does the patient meet any 2 criteria? No. Patient's initial sepsis screen is negative. Does the patient have a suspected source of infection? No. Patient's initial sepsis screen is negative. Care prior to arrival: None. 22:51 Method Of Arrival: Ambulatory bb 22:51 Acuity: BENIGNO 2 bb Historical: - Allergies: 22:54 No Known Allergies; bb - Home Meds: 22:54 isosorbide mononitrate 30 mg Oral Tb24 1 tab once daily [Active]; metoprolol tartrate bb 100 mg Oral tab 1 tab once daily [Active]; atorvastatin 40 mg oral tab 1 tab once daily [Active]; allopurinol 300 mg Oral tab 1 tab once daily [Active]; pantoprazole 40 mg oral TbEC 1 tab once daily [Active]; aspirin 81 mg Oral chew 1 tab once daily [Active]; Tramadol Oral [Active]; - PMHx: 22:54 CAD; Hyperlipidemia; Hypertension; bb - PSHx: 22:54 Angioplasty; stents; colon surgery; bb - Immunization history:: Adult Immunizations up to date. - Social history:: Smoking status: unknown. - Ebola Screening: : No symptoms or risks identified at this time. Screenin/19 00:03 Abuse screen: Denies threats or abuse. Denies injuries from another. Nutritional mg2 screening: No deficits noted. Tuberculosis screening: No symptoms or risk factors identified. Fall Risk IV access (20 points). Assessment: 00:01 General: Appears in no apparent distress. comfortable, Behavior is calm, cooperative. mg2 Pain: Complains of pain in throat Pain does not radiate. Pain currently is 2 out of 10 on a pain scale. Quality of pain is described as sore Pain began gradually, 1 week Is intermittent. Neuro: Level of Consciousness is awake, alert, obeys commands, Oriented to person, place, time, situation. Cardiovascular: Capillary refill < 3 seconds Patient's skin is warm and dry. Respiratory: Airway is patent Respiratory effort is even, unlabored, Respiratory pattern is regular, symmetrical. GI: Abdomen is flat, non-distended. : No signs and/or symptoms were reported regarding the genitourinary system. EENT: Reports pain in throat. Derm: Skin is intact, is healthy with good turgor, Wound noted Other: post op abdomen. Musculoskeletal: Circulation, motion, and sensation intact. Capillary refill < 3 seconds. 01:07 Reassessment: patient sent to ct scan. mg2 02:59 Reassessment: patient informed about the need for hospitalization. patient agreed. mg2 03:29 Reassessment: Patient is alert, oriented x 3, equal unlabored respirations, skin bb warm/dry/pink. pt states he is feeling better, IV site intact, patent with fluids infusing, family at bedside awaiting room assignment. 04:37 Reassessment: Patient is alert, oriented x 3, equal unlabored respirations, skin bb warm/dry/pink. pt is resting quietly, IV site intact, patent with fluids infusing, awaiting orders from hospitalist for admission. 05:24 Reassessment: Patient is alert, oriented x 3, equal unlabored respirations, skin bb warm/dry/pink. IV site intact, patent with fluids infusing. Vital Signs: 11/29 22:54 BP 129 / 60; Pulse 87; Resp 20 S; Temp 102.4(O); Pulse Ox 92% on R/A; Weight 81.65 kg bb (R); Height 6 ft. 1 in. (185.42 cm) (R); Pain 5/10; 11/30 00:10 BP 112 / 68; Pulse 70; Resp 18; Pulse Ox 100% on R/A; Pain 2/10; mg2 01:09 BP 114 / 65; Pulse 70; Resp 18; Temp 97.9(O); Pulse Ox 93% on R/A; Pain 0/10; mg2 02:58 BP 102 / 69; Pulse 63; Resp 18; Temp 98.4; Pulse Ox 96% on R/A; Pain 0/10; mg2 03:31 BP 104 / 53; Pulse 61; Resp 16 S; Temp 98.5(O); Pulse Ox 92% on R/A; bb 04:39 BP 109 / 65; Pulse 56; Resp 18 S; Pulse Ox 92% on R/A; bb 11/29 22:54 Body Mass Index 23.75 (81.65 kg, 185.42 cm) bb ED Course: 11/29 22:27 Patient arrived in ED. ds1 22:34 Anton Short MD is Attending Physician. gs 22:49 Oneil Desir, HERO is Primary Nurse. mg2 22:52 Triage completed. bb 22:54 Arm band placed on Patient placed in an exam room, on a stretcher, on electronic device monitor, bb on pulse oximetry. 23:18 X-ray completed. Portable x-ray completed in exam room. Patient tolerated procedure sg4 well. 23:19 Chest Single View XRAY In Process Unspecified. EDMS 23:54 Radiology exam delayed due to lab results not completed at this time. (BUN/Creatinine). vm2 11/30 00:03 No provider procedures requiring assistance completed. Inserted saline lock: 20 gauge mg2 in left wrist, using aseptic technique. Blood collected. 00:26 Radiology exam delayed due to lab results not completed at this time. (BUN/Creatinine) kw1 Spoke with attending nurse regarding labs. They were sent at approx. 23:45 and results are not back at this time. 00:34 Notified ED physician of a critical lab result(s). troponin of 0.71 Dr Short notified. bb 01:09 Patient has correct armband on for positive identification. mg2 01:21 CT Abd/Pelvis - W/Contrast In Process Unspecified. EDMS 03:00 Matthew Martin MD is Hospitalizing Provider. gs 03:31 Patient admitted, IV remains in place. bb Administered Medications: 11/29 23:59 Drug: Cefepime 1 grams Route: IVPB; Rate: 200 ml/hr; Infused Over: 30 mins; Site: left mg2 wrist; 11/30 00:30 Follow up: Response: No adverse reaction; IV Status: Completed infusion mg2 00:00 Drug: Tylenol 650 mg Route: PO; mg2 23:30 Follow up: Response: No adverse reaction; Temperature is decreased mg2 00:00 Drug: NS 0.9% 1000 ml Route: IV; Rate: 1 bolus; Site: left wrist; mg2 00:30 Follow up: Response: No adverse reaction; IV Status: Completed infusion mg2 02:48 Drug: Flagyl 500 mg Volume: 100 ml; Route: IVPB; Rate: 200 ml/hr; Infused Over: 30 mg2 mins; Site: left wrist; 03:32 Follow up: IV Status: Completed infusion; IV Intake: 100ml bb 02:48 Drug: NS 0.9% 1000 ml Route: IV; Rate: 125 ml/hr; Site: left wrist; mg2 05:13 Follow up: IV Status: Infusion continued upon admission bb Intake: 03:32 IV: 100ml; Total: 100ml. bb Outcome: 03:00 Decision to Hospitalize by Provider. juma 03:31 Instructed on the need for admit. bb 05:20 Admitted to Tele accompanied by tech, via stretcher, room 404, with chart, Report bb called to Candida MONAHAN 05:20 Condition: stable 05:41 Patient left the ED. bb Signatures: Dispatcher [employer] EDAL Gloria Aguero ds1 Mya Cisse RN HERO bb Noemí Li 2 Anton Short MD MD Christiana Pearson1 Oneil Desir RN RN mg2 Ila Sears sg4
[2018-11-30] MEDS ORDERED: MAGNESIUM HYDROXIDE 8% 30 ML PO PRN (04:55)
[2018-11-30] MEDS ORDERED: ALPRAZOLAM 0.25 MG TABLET PO PRN (04:55)
[2018-11-30] MEDS ORDERED: NA CHLORIDE 0.9% 1,000 ML IV SCH (05:00)
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
[2018-11-30] MEDS ORDERED: PIPER/TAZO/NS 3.375gm 3.375 GM/100 ML BAG IVPB SCH (06:00)
[2018-11-30 06:38] LABS: Absolute Neutrophil 11.7 K/uL (1.8-8.0); Basophils % 0.5 % (0-1.3); Eosinophils % 0.3 % (0-4.4); Hematocrit 25.2 % (39.6-49.0); Lymphocytes % 7.4 % (15.3-44.8); MPV 8.7 fL (7.6-11.3); Monocytes % 7.2 % (3.3-12.3); RBC Red Blood Cell Count 2.63 M/uL (4.33-5.43)
[2018-11-30] MEDS ORDERED: PIPER/TAZO/NS 3.375gm 3.375 GM/100 ML BAG ONE (06:45)
[2018-11-30 06:50] LABS: Albumin 2.6 g/dL (3.4-5.0); Phosphorus 2.9 mg/dL (2.5-4.9); Potassium 3.9 mmol/L (3.5-5.1); Protein, Total 4.7 g/dL (6.4-8.2)
[2018-11-30 06:52] LABS: Troponin I 0.56 ng/mL (0.0-0.045)
[2018-11-30] MEDS ORDERED: HOME MED 1 EA UNK (Metoprolol Tartrate [Lopressor] 100 MG) PO SCH (09:00)
--- NOTE | 2018-11-30 09:48 | RAD REPORT ---
EXAM DESCRIPTION: CT - Abdomen Pelvis W Contrast - 11/30/2018 9:20 am CLINICAL HISTORY: Abdominal pain/colon cancer COMPARISON: June 2018 cat scan TECHNIQUE: Computed axial tomography of the abdomen pelvis was obtained. 100 cc Isovue-300 was admin istered intravenously. Oral contrast was not requested which limits evaluation of bowel. Preliminary report generated by [employer] and reviewed prior to dictation All CT scans are performed using dose optimization technique as appropriate and may include automated exposure control or mA/KV adjustment according to patient size. FINDINGS: The patient is status post right colectomy. Trace pneumoperitoneum is noted. Small pleural effusions. Small amount of ascites. An abscess is not noted. Tiny hepatic lesions are unchanged compatible with cysts or hamartomas. The pancreas, adrenals are unremarkable. Renal cysts bilaterally. Air within the bladder probably secondary to recent instrumentation. The prostate gland is mildly to moderately enlarged. Diverticula stem from the colon without evidence of diverticulitis The wall of the distal stomach appears thickened. Small amount of thrombus is present within a branch of the superior mesenteric vein A diverticulum stems from the duodenum Bilateral lower lobe pulmonary fibrosis IMPRESSION: Right hemicolectomy with small amount of ascites. 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
[2018-11-30] MEDS: METOPROLOL TAR 50 MG TAB PO SCH (09:59)
[2018-11-30] MEDS: ALLOPURINOL 300 MG TAB PO SCH (10:00)
[2018-11-30] MEDS: PANTOPRAZOLE 40MG TABLET PO SCH (10:00)
[2018-11-30] MEDS: ATORVASTATIN 40 MG TAB PO SCH (10:00)
[2018-11-30] MEDS: ISOSORBIDE MONO SR 30 MG TAB PO SCH (10:01)
[2018-11-30] MEDS: ASPIRIN EC 81 MG TAB PO SCH (10:01)
[2018-11-30] MEDS: FUROSEMIDE 20 MG TABLET PO SCH (10:01)
--- NOTE | 2018-11-30 10:29 | RAD REPORT ---
EXAM DESCRIPTION: Agueda Single View11/29/2018 11:19 pm CLINICAL HISTORY: Fever COMPARISON: 2017 FINDINGS: There has been progression in moderate diffuse bilateral interstitial opacities having th e appearance of pulmonary fibrosis. Small bilateral pleural effusions are present. The heart is mildly to moderately enlarged
--- NOTE | 2018-11-30 10:30 | RAD REPORT ---
EXAM DESCRIPTION: Agueda Pa And Lat (2 Views)11/30/2018 9:28 am CLINICAL HISTORY: Fever COMPARISON: November 29 FINDINGS: Moderate diffuse bilateral interstitial lung opacities are unchanged. Small pleural effusi ons are seen. Heart is mildly to moderately enlarged IMPRESSION: Moderate diffuse bilateral social lung opacities probably representing pulmonary fibros is
--- NOTE | 2018-11-30 13:06 | P.PN ---
Subjective Date of Service: 11/30/18 Primary Care Provider: Dr. Ramos; Cardiology-Dr. Toledo; Surgery-Dr. Mora Chief Complaint: Fever; status post partial colectomy Subjective: Improving Physical Examination - Vital Signs Temperature: 97.9 F Blood Pressure: 120/60 Pulse: 75 Respirations: 18 Pulse Ox (%): 97 - Physical Exam General: Alert, In no apparent distress, Oriented x3, Cooperative HEENT: Atraumatic Neck: Supple Respiratory: Clear to auscultation bilaterally, Normal air movement Cardiovascular: Normal pulses, Regular rate/rhythm Gastrointestinal: Normal bowel sounds, Soft and benign, Non-distended, No masses , No rebound, No guarding Musculoskeletal: No erythema, No tenderness, No warmth Integumentary: No tenderness/swelling, No erythema, No warmth, No cyanosis Neurological: Normal speech, Normal strength at 5/5 x4 extr, Normal tone, Normal affect - Studies Laboratory Data (last 24 hrs) 11/29/18 23:30: PT 16.2 H, INR 1.37 11/29/18 23:30: WBC 12.2 H, Hgb 9.0 L, Hct 26.1 L, Plt Count 181 11/29/18 23:30: Sodium 141, Potassium 3.1 L, BUN 17, Creatinine 0.90, Glucose 106, Total Bilirubin 2.9 H, AST 39 H, ALT 50, Alkaline Phosphatase 98, Lipase 93 Microbiology Data (last 24 hrs): 11/29/18 23:40 Nasopharnyx Influenza Type A Antigen Screen - Final 11/29/18 23:40 Nasopharnyx Influenza Type B Antigen Screen - Final Medications List Reviewed: Yes Assessment & Plan Discharge Plan: Home Plan to discharge in: 48 Hours Physician Review Additional Text: Impression: Fever of unknown etiology possible related to atelectasis complicated with a recent colon surgery-partial colectomy for suspected colon cancer Bilateral small pleural effusions Elevated troponin with history of CAD Recent right hemicolectomy with small amount of ascites GERD 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 Patient currently on IV Zosyn. Case discussed at length with surgeon on-call. Await blood culture findings. Will recheck x-ray to rule out pneumonia. Will continue to reassess. Will wean off oxygen. Will recheck PA and lateral chest x-ray tomorrow. Continue with incentive spirometer. Will ambulate with physical therapy. Will continue to reassess. Bilateral small pleural effusions: Will recheck chest x-ray tomorrow. Will wean off oxygen. This is likely related to recent surgery. Elevated troponin with history of CAD: Troponin slightly elevated. Patient with history of CAD. Patient reports blockage in 1 of his arteries. Cardiology consulted. Await further recommendations. No full-dose anti coagulation at this time due to recent surgery. Recent right hemicolectomy with small amount of ascites: Case discussed with surgeon on-call. Will keep updated. No need for transfer of care at this time. GERD: Will continue with medication. Small amount of thrombus within a branch of the superior mesenteric vein: Will discuss with cardiology. No full-dose anti coagulation at this time due to recent surgery and anemia. Anemia likely of chronic disease: Will monitor closely. Will check iron and B12 studies. Elevated liver function with noted tiny hepatic lesions likely compatible with cysts: Will monitor closely. Will obtain abdominal ultrasound to further evaluate. Time Spent Managing Pts Care (In Minutes): 55
[2018-11-30] MEDS: NACHLORIDE 0.45% 1,000 ML IV SCH ×2 (14:11→19:57)
[2018-11-30] MEDS: PIPER/TAZO/NS 3.375gm 3.375 GM/100 ML BAG IVPB SCH ×2 (14:13→22:04)
[2018-11-30 14:58] LABS: Hematocrit 25.2 % (39.6-49.0)
[2018-11-30 15:08] LABS: Urine Appearance CLEAR; Urine Blood NEGATIVE (NEG); Urine Color DK YELLOW; Urine Glucose NEGATIVE (NEG); Urine Protein TRACE (NEG); Urine Specific Gravity >=1.030 (1.005-1.030); Urine pH 5.5 (5.0-7.0)
[2018-11-30 15:20] LABS: Urine Bilirubin NEGATIVE (NEG); Urine Microscopic Reflex NO UMIC
[2018-11-30 15:47] LABS: Ferritin 640.1 ng/mL (26-388)
[2018-11-30] MEDS: ENOXAPARIN 40 MG/0.4 ML SQ SCH (17:00)
[2018-11-30] MEDS: TRAMADOL HCL 50 MG TAB PO PRN (17:46)
[2018-11-30] MEDS: ACETAMINOPHEN 500 MG TAB PO PRN (19:58)
[2018-11-30] MEDS: DULERA 100/5 (MOMETASONE/FORMOTEROL) INHALER IH SCH (20:04)
[2018-12-01] MEDS: TRAMADOL HCL 50 MG TAB PO PRN ×2 (00:10→18:22)
[2018-12-01] MEDS: ACETAMINOPHEN 500 MG TAB PO PRN ×2 (03:27→03:56)
[2018-12-01] MEDS: PIPER/TAZO/NS 3.375gm 3.375 GM/100 ML BAG IVPB SCH ×3 (05:28→21:05)
[2018-12-01 05:55] LABS: Absolute Lymphocytes (CBC) 0.6 K/uL (0.7-4.9); Absolute Monocytes 0.6 K/uL (0.1-1.3); Absolute Neutrophil 16.7 K/uL (1.8-8.0); Basophils % 0.2 % (0-1.3); Eosinophils % 0.1 % (0-4.4); Hematocrit 26.7 % (39.6-49.0); Lymphocytes % 3.6 % (15.3-44.8); MPV 8.6 fL (7.6-11.3); Monocytes % 3.6 % (3.3-12.3); RBC Red Blood Cell Count 2.78 M/uL (4.33-5.43)
[2018-12-01 06:10] LABS: Albumin 2.3 g/dL (3.4-5.0); Bilirubin Total 2.8 mg/dL (0.2-1.0); Magnesium 1.8 mg/dL (1.8-2.4); Potassium 3.3 mmol/L (3.5-5.1); Protein, Total 4.6 g/dL (6.4-8.2)
[2018-12-01] MEDS ORDERED: MAGNESIUM SULFATE 1 gm IVPB 1 GM/100 ML BAG IV ONE ×2 (06:20→09:00)
--- NOTE | 2018-12-01 07:46 | RAD REPORT ---
EXAM DESCRIPTION: RAD - Chest Pa And Lat (2 Views) - 12/01/2018 6:27 am CLINICAL HISTORY: Fever, pleural effusions COMPARISON: November 30 chest examination TECHNIQUE: AP and lateral views of the chest were obtained with the patient seated. FINDINGS: The lungs are underinflated. Lung volumes are diminished compared to the prior study. Diff usely prominent interstitial markings are present. Adjusting for the more shallow inspiration pattern is not substantially different. Heart size and vasculature are similar to comparison. Lateral view i s limited due to motion an wheelchair artifacts. No pneumothorax or enlarging pleural effusion. No acute bony finding noted. No aortic abnormality. IMPRESSION: Shallow inspiration film showing no significant change from prior day study.
--- NOTE | 2018-12-01 07:57 | P.PN ---
Date of Service: 12/01/18 Subjective: Patient spiked a temperature of a 102. His abdomen is hurting more than it was on admission. Ultrasound is pending. He may need a diagnostic paracentesis to make sure he does not have spontaneous bacterial peritonitis. Denies any meningismus or cough. He does not have nausea or vomiting or diarrhea. There was no intra-abdominal abscess noted on the CT scan. If blood cultures are positive he may need echocardiogram. Physical Examination Vitals: Afebrile vital signs are stable Physical exam: Cardiovascular: Tachycardic no murmurs Lungs: Clear bilaterally Abdomen: Patient is tender diffusely. He does have some rebound now(not present on admission). Extremity: No clubbing no cyanosis no edema Diagnostic data has been reviewed ASST: 1. Fever of unknown etiology 2. Abdominal pain status post partial colectomy 3. Anemia; iron deficiency and acute blood loss 4. History of coronary artery disease with elevated troponin 5. Leukocytosis PLAN: 1. Continue with IV antibiotics 2. Continue with IV hydration 3. Abdominal studies pending 4. May benefit from diagnostic paracentesis as well as echocardiogram 5. Monitor H&H and white count 6. Recheck lactate and procalcitonin 7. GI and DVT prophylaxis
[2018-12-01 08:17] LABS: Anisocytosis 1+; Blood Morphology Comment NOTED (NOT SEEN); Platelet Estimate ADEQ
[2018-12-01] MEDS: HYDROCODONE/APAP 7.5/325 MG TAB PO PRN ×2 (08:24→21:04)
[2018-12-01] MEDS: METOPROLOL TAR 50 MG TAB PO SCH ×2 (08:25→10:00)
[2018-12-01] MEDS: POTASSIUM CL SA 10 MEQ TAB PO ONE ×2 (08:25→10:00)
[2018-12-01] MEDS: PANTOPRAZOLE 40MG TABLET PO SCH ×2 (08:25→10:00)
[2018-12-01] MEDS: ISOSORBIDE MONO SR 30 MG TAB PO SCH ×2 (08:26→10:00)
[2018-12-01] MEDS: ASPIRIN EC 81 MG TAB PO SCH ×2 (08:26→10:00)
[2018-12-01] MEDS: FUROSEMIDE 20 MG TABLET PO SCH ×2 (08:26→10:00)
[2018-12-01] MEDS: ENOXAPARIN 40 MG/0.4 ML SQ SCH (09:00)
[2018-12-01] MEDS: ATORVASTATIN 40 MG TAB PO SCH ×2 (09:00→21:05)
[2018-12-01] MEDS: ALLOPURINOL 300 MG TAB PO SCH (10:00)
[2018-12-01] MEDS: DULERA 100/5 (MOMETASONE/FORMOTEROL) INHALER IH SCH ×2 (10:00→21:05)
--- NOTE | 2018-12-01 11:03 | P.PN ---
Subjective Date of Service: 12/01/18 Primary Care Provider: Dr. Ramos; Cardiology-Dr. Toledo; Surgery-Dr. Mora Chief Complaint: Fever; status post partial colectomy Subjective: Other (Patient stable this morning. Abdominal pain comes and goes. Patient with history of right hemicolectomy. No significant nausea or vomiting. Patient to have abdominal ultrasound today. Patient did have fever this morning) Physical Examination - Vital Signs Temperature: 99.8 F Blood Pressure: 119/53 Pulse: 92 Respirations: 20 Pulse Ox (%): 90 - Physical Exam General: Alert, In no apparent distress, Oriented x3, Cooperative HEENT: Atraumatic Neck: Supple Respiratory: Clear to auscultation bilaterally, Normal air movement Cardiovascular: Normal pulses, Regular rate/rhythm Gastrointestinal: Normal bowel sounds, Soft and benign, Non-distended, No masses , No rebound, No guarding, Tenderness (Mild pain to the right upper quadrant) Musculoskeletal: No erythema, No tenderness, No warmth Integumentary: No tenderness/swelling, No erythema, No warmth, No cyanosis Neurological: Normal speech, Normal strength at 5/5 x4 extr, Normal tone, Normal affect - Studies Medications List Reviewed: Yes Assessment & Plan Discharge Plan: Home Plan to discharge in: Greater than 2 days Physician Review Additional Text: Impression: Fever of unknown etiology possible related to atelectasis complicated with a recent colon surgery-partial colectomy for suspected colon cancer Bilateral small pleural effusions Elevated troponin with history of CAD Recent right hemicolectomy with small amount of ascites GERD Small 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 White count elevated. Await KUB and abdominal ultrasound to further evaluate. Patient currently on IV Zosyn. Case discussed at length with surgeon on-call who performed recent right hemicolectomy. Will continue to monitor patient closely. Patient does not appear to have acute abdomen. Surgeon on-call reported that the patient did have a procedure post surgery that required removal of blood clots. Will continue monitor patient closely. Will consider adjusting IV antibiotic therapy if white count persist. Will consider transfer to surgeon if condition worsens. Will continue with DVT prophylaxis at this time. Will discuss case further with cardiology. Encourage incentive spirometer. Will have physical therapy assess ambulation. Continue to reassess. Bilateral small pleural effusions: Recheck x-ray shows no significant change. Will wean off oxygen. This is likely related to recent surgery. Elevated troponin with history of CAD: Troponin slightly elevated. Patient with history of CAD. Patient reports blockage in 1 of his arteries. Case discussed with cardiology. No cardiac intervention needed at this time. Continue with DVT prophylaxis Recent right hemicolectomy with small amount of ascites: Case discussed with surgeon on-call who performed recent surgery. Await KUB and abdominal ultrasound findings. Will discuss later with surgeon after radiology findings. GERD: Will continue with medication. 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 Anemia likely of chronic disease with iron and B12 deficiency: Will monitor closely. Patient with iron and B12 deficiency. Will add supplementation Elevated liver function with noted tiny hepatic lesions likely compatible with cysts: LFT appears improved. Await abdominal ultrasound findings. Time Spent Managing Pts Care (In Minutes): 55
--- NOTE | 2018-12-01 11:11 | RAD REPORT ---
EXAM DESCRIPTION: RAD - Abdomen 1 View (KUB) - 12/01/2018 10:18 am CLINICAL HISTORY: Right upper quadrant abdominal pain, history of right hemicolectomy COMPARISON: CT study November 30 FINDINGS: Right hemidiaphragm elevation is present. Date of the surgery is unknown. Free air is not suspected. Air density in the medial right upper quadrant is believed to be part of b owel interposed between the liver and diaphragm. Distended to mildly dilated small bowel loops are pr esent in the mid abdomen. No pneumatosis. Ileus is favored over small bowel obstruction but continued monitoring is needed. No suspicious calcifications. No significant bony findings IMPRESSION: Distended to mildly dilated small bowel loops with ileus favored over bowel obstruction. No free air confirmed. Air densities in the right upper quadrant are probably part of interposed anne marie l between diaphragm and liver.
--- NOTE | 2018-12-01 11:26 | RAD REPORT ---
EXAM DESCRIPTION: US - Abdomen Exam Complete - 12/01/2018 10:10 am CLINICAL HISTORY: Elevated LFTs, elevated bilirubin, abdominal pain COMPARISON: CT study November 30 CT 2014 FINDINGS: Gallbladder size is normal. No gallstones, wall thickening or pericholecystic fluid. Commo n bile duct is normal with no common duct stone identified. Liver shows a lobular contour with a very coarsened heterogeneous echogenicity. This is a pattern consistent with cirrhosis or diffuse hepatic parenchymal disease. Fatty infiltration was not evident on the CT study from the prior day. A focal or suspicious liver lesion is not identified at sonography. No splenomegaly. In the splenic hilum a 4 .4 centimeter mass is present hyperechoic to the liver parenchyma. This is hypodense relative to the majority of the spleen on arterial phase imaging and isodense on venous phase imaging. This is a new finding from 2014. The pancreas is obscured. No hydronephrosis or suspicious mass in either kidney. Patient has multiple bilateral renal cysts. No suspicious characteristics at sonography. Aorta and IVC are mostly obscured. Ascites is present matching the CT study. No bulky lymphadenopathy . IMPRESSION: Liver shows a abnormal echotexture from cirrhosis or diffuse hepatic parenchymal disease . No focal liver lesion identified. No gallbladder or biliary tree abnormality. Pancreas was obscured. No pancreatic focal abnormality on the prior day CT study. Approximately 4.4 centimeter splenic mass. Hemangioma would be favored. Malignancy of the spleen is u sually associated with malignancy elsewhere. No other malignant process evident. It is unknown if the right hemicolectomy was performed for a colon malignancy. A splenic metastasis as the only distant d isease would be unusual.
--- NOTE | 2018-12-01 14:59 | P.CNS ---
Date of Consult: 12/01/18 PC: This 78-year-old male presents emergency room with temperature inferior for an diagnosis and treatment peer HPC: Patient is status post right hemicolectomy. He also had a take back for possible bleeding hand 2nd look. Postoperatively he has done well until use those at home by his to be having temperatures 11/13/2000 102. He was also bowel laying coherently. She says he just did not look well at that time. PSHx: Recent right hemicolectomy done about 2 weeks ago SOC: No known allergies SYS REVIEW: No cough, wheeze, shortness of breath at the moment. No chest pain or palpitations. Says he has pain around his abdomen is in various spots feels okay. Has no appetite, and food tastes horrible. O/E awake alert vital signs are stable HEENT: Not clinically jaundice Chest: Chest movement equal bilaterally ABD: Wounds are clean, minimal abdominal tenderness no focal guarding or rebound LOCO: Intact DATA: CT scan reports reviews. No acute intra-abdominal process is noted. IMPRESSION: Temperature is in fevers of unknown origin PLAN: Will continue to follow with you. Ambulating, use of incentive spirometry, in addition to antibiotics. Improved oral intake.
[2018-12-01] MEDS ORDERED: POTASSIUM CL SA 10 MEQ TAB PO ONE (21:00)
--- NOTE | 2018-12-02 00:14 | CON ---
Date of Consultation: 11/30/[address] Carroll' service on 11/30/2018. I saw the patient on 11/30/2018. Reason For Consultation: Elevated troponin. History Of Present Illness: Mr. Ramirez is 78 years old; has a history of dyslipidemia, hypertension, COPD, gastroesophageal reflux disease, and gout. Has 100% RCA that was not amenable to angioplasty o r stent approximately a year ago. He came in with no chest pain. He came in with an infection, feve r of unknown origin. He just recently had colon surgery by Dr. Mora for colon cancer. He was being treated with antibiotics. Had a troponin drawn, which was abnormal at 0.71. He had a hemoglobin of 8.8, white count of 13,800. I was consulted for followup and evaluation. No cardiac symptoms report ed. His chest x-ray showed possible atelectasis. Allergies: NONE. Review of Systems: Negative. Social History: Negative. Family History: Negative. Medications: Include Protonix, allopurinol, Lipitor, Advair, Imdur, and metoprolol. Physical Examination: Vital Signs: Stable. General: He was in sinus rhythm. He was in no acute distress. HEENT: Negative. Neck: Supple without any bruit, lymphadenopathy, JVD, or thyromegaly. Chest: Clear to auscultation and percussion. Cardiac Exam: Revealed a regular rhythm and rate without murmurs, gallops, or rubs. Abdomen: Benign. Extremities: Revealed no clubbing, cyanosis, edema. Neurologic: He was neurologically nonfocal. Skin: Dry and intact. Impression And Plan: 1.Elevated troponin of no clinical significance, possibly secondary to toes infection and anemia. 2.Elevated white count secondary to infection of unknown origin, possibly atelectasis from postopera tive surgery. 3.Gout. 4.Dyslipidemia. 5.Chronic obstructive pulmonary disease. 6.Coronary artery disease, status post failed angioplasty of the right coronary artery, stable. 7.Gastroesophageal reflux disease. 8.Recent colon surgery for colon cancer. Mr. Ramirez has an appointment with me on December 05. I certainly would not recommend any cardiac wo rkup at this point. He is due to have an ultrasound and a stress test in my office in the near [facility]. He can go home whenever his infection treatment is done. NB/MODL Voice ID: [id number] Report ID: [id number]
[2018-12-02] MEDS: ACETAMINOPHEN 500 MG TAB PO PRN (00:54)
[2018-12-02 05:04] LABS: Absolute Lymphocytes (CBC) 0.8 K/uL (0.7-4.9); Absolute Monocytes 0.7 K/uL (0.1-1.3); Absolute Neutrophil 19.1 K/uL (1.8-8.0); Basophils % 0.2 % (0-1.3); Eosinophils % 0.1 % (0-4.4); Hematocrit 29.1 % (39.6-49.0); Lymphocytes % 3.8 % (15.3-44.8); MPV 9.2 fL (7.6-11.3); Monocytes % 3.4 % (3.3-12.3); RBC Red Blood Cell Count 3.02 M/uL (4.33-5.43)
[2018-12-02] MEDS: NACHLORIDE 0.45% 1,000 ML IV SCH ×3 (05:16→21:00)
[2018-12-02 05:19] LABS: Albumin 2.2 g/dL (3.4-5.0); Bilirubin Total 2.5 mg/dL (0.2-1.0); Magnesium 2.2 mg/dL (1.8-2.4); Protein, Total 4.7 g/dL (6.4-8.2)
[2018-12-02] MEDS: PIPER/TAZO/NS 3.375gm 3.375 GM/100 ML BAG IVPB SCH (05:30)
[2018-12-02 05:46] LABS: Blood Morphology Comment NOT SEEN (NOT SEEN); Platelet Estimate ADEQ
[2018-12-02] MEDS: HYDROCODONE/APAP 7.5/325 MG TAB PO PRN (07:45)
[2018-12-02] MEDS ORDERED: ERTAPENEM SODIUM 1 GM VIAL IVPB SCH (09:00)
[2018-12-02] MEDS ORDERED: NACHLORIDE 0.45% 1,000 ML IV SCH (09:00)
[2018-12-02] MEDS: ENOXAPARIN 40 MG/0.4 ML SQ SCH (10:02)
[2018-12-02] MEDS: DULERA 100/5 (MOMETASONE/FORMOTEROL) INHALER IH SCH ×2 (10:04→21:00)
[2018-12-02] MEDS: CYANOCOBALAMIN 1,000 MCG TAB PO SCH (10:05)
[2018-12-02] MEDS: ISOSORBIDE MONO SR 30 MG TAB PO SCH (10:06)
[2018-12-02] MEDS: FUROSEMIDE 20 MG TABLET PO SCH (10:06)
[2018-12-02] MEDS: FERROUS SULFATE 325 MG TAB PO SCH (10:06)
[2018-12-02] MEDS: ALLOPURINOL 300 MG TAB PO SCH (10:06)
[2018-12-02] MEDS: ASPIRIN EC 81 MG TAB PO SCH (10:07)
[2018-12-02] MEDS: METOPROLOL TAR 50 MG TAB PO SCH (10:07)
[2018-12-02] MEDS: PANTOPRAZOLE 40MG TABLET PO SCH (10:07)
[2018-12-02] MEDS: Meropenem 1,000 MG in NA CHLORIDE 0.9% 100 ML IV SCH ×2 (10:13→17:12)
[2018-12-02] MEDS ORDERED: MORPHINE 4 MG/ML SYR IV PRN ×3 (10:30→13:11)
--- NOTE | 2018-12-02 10:36 | P.PN ---
Subjective Date of Service: 12/02/18 Primary Care Provider: Dr. Ramos; Cardiology-Dr. Toledo; Surgery-Dr. Mora Chief Complaint: Fever; status post partial colectomy Subjective: Other (Patient still with right upper quadrant pain from time to time. Patient still with fevers. No significant cough or congestion. Room-air saturations stable. Heart rate stable. Patient had bowel movement today.) Physical Examination - Vital Signs Temperature: 98.3 F Blood Pressure: 123/62 Pulse: 70 Respirations: 20 Pulse Ox (%): 91 - Physical Exam General: Alert, In no apparent distress, Oriented x3, Cooperative HEENT: Atraumatic Neck: Supple Respiratory: Clear to auscultation bilaterally, Normal air movement Cardiovascular: Normal pulses, Regular rate/rhythm Gastrointestinal: Normal bowel sounds, Soft and benign, Non-distended, Other ( No distention noted. Good bowel sounds noted. Mild ecchymosis to the umbilical region with postop changes noted.), Tenderness (Some tenderness to the right upper quadrant region.) Musculoskeletal: No erythema, No tenderness, No warmth Integumentary: No erythema, No warmth, No cyanosis Neurological: Normal speech, Normal strength at 5/5 x4 extr, Normal tone, Normal affect - Studies Medications List Reviewed: Yes Assessment & Plan Discharge Plan: Other (Home versus transfer) Plan to discharge in: Greater than 2 days Physician Review Additional Text: Impression: Fever of unknown etiology possible related to atelectasis complicated with a recent colon surgery-partial colectomy for suspected colon cancer Bilateral small pleural effusions Elevated troponin with history of CAD Recent right hemicolectomy with small amount of ascites GERD Small 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 White count elevated again today. Case discussed with surgeon on-call who performed recent right hemicolectomy. Will obtain CT scan of the chest, abdomen and pelvis to further assess fever and elevated white count. Will also obtain echocardiogram. Patient had bowel movement. Will change IV Zosyn to meropenem. Will repeat blood cultures. Encourage incentive spirometer. Encourage ambulation. Continue with DVT prophylaxis. Will continue to monitor and assess closely. Await CT scan findings. Will consult infectious disease to further evaluate fever. Still need to consider possible transfer if etiology related to recent surgery. Otherwise will continue to monitor closely. Continue discuss with surgery. Bilateral small pleural effusions: X-ray yesterday shows no significant change. Will continued to monitor closely. Will order CT chest. Elevated troponin with history of CAD: Troponin slightly elevated. Patient with history of CAD. Patient reports blockage in 1 of his arteries. Case discussed with cardiology. No cardiac intervention needed at this time. Continue with DVT prophylaxis Recent right hemicolectomy with small amount of ascites: Case discussed with surgeon on-call who performed recent surgery. Will discuss findings of CT scan chest, abdomen and pelvis. I did consult local surgery to further assist. KUB yesterday showed possible ileus. Patient tolerating current diet. Continue to monitor closely. GERD: Will continue with medication. 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 Anemia likely of chronic disease with iron and B12 deficiency: Will monitor closely. Patient with iron and B12 deficiency. Will add supplementation Elevated liver function with noted tiny hepatic lesions likely compatible with cysts: LFT appears improved. Abdominal ultrasound unremarkable yesterday. Will obtain CT scan to further address. Time Spent Managing Pts Care (In Minutes): 55
--- NOTE | 2018-12-02 11:49 | EKG ---
Test Date: 2018-11-29 Test Time: 23:54:47 Heating Element Builder: MEASUREMENT RESULTS: Intervals: Rate: 67 TX: 220 QRSD: 128 QT: 500 QTc: 528 [place]: P: 50 TX: 220 QRS: -15 T: 17 INTERPRETIVE STATEMENTS: Sinus rhythm with 1st degree AV block with premature atrial complexes Nonspecific intraventricular block Inferior infarct, age undetermined Cannot rule out Anteroseptal infarct, age undetermined Abnormal ECG Compared to ECG 05/08/2016 09:51:29 Atrial premature complex(es) now present Left ventricular hypertrophy no longer present Myocardial infarct finding still present Electronically Signed On 12-02-18 11:43:27 EMPLOYMENT EVALUATOR/CASE MANAGER by Isidoro Toledo
--- NOTE | 2018-12-02 12:22 | RAD REPORT ---
EXAM DESCRIPTION: CT - Chest Abdomen Pelvis W Cont - 12/02/2018 11:42 am CLINICAL HISTORY: Chest and abdominal pain status post fall COMPARISON: June 2018 CT chest and November 30, 2018 CT abdomen TECHNIQUE: Computed axial tomography of the chest, abdomen and pelvis was obtained. 100 cc Isovue-30 0 was administered intravenously. Oral contrast was given All CT scans are performed using dose optimization technique as appropriate and may include automated exposure control or mA/KV adjustment according to patient size. FINDINGS: COPD. Mild ground-glass opacities within the right lung. Mild pulmonary fibrosis. No mediastinal or hilar lymphadenopathy. Tiny right pleural effusion. . Right hemicolectomy. Pneumoperitoneum has progressed since the prior exam and is small to moderate. T he amount of ascites has also progressed and is small to moderate. A fluid-filled mass with an enhanc ing rim to suggest an abscess is not seen. Small low-density lesions within the liver are unchanged compatible with cysts or hamartomas. A 3.1 centimeter soft tissue structure abuts the anterior aspect of superior spleen. On the previous exam the density was similar to the spleen. However on the current exam it has a lower density than t he spleen. Renal cysts are noted. There is no evidence of diverticulitis. Air is present within the bladder. A small amount of thrombus within the superior mesenteric vein is minimally improved IMPRESSION: The amount of pneumomediastinum has progressed since the prior exam and is small to mode rate. The amount of ascites has also progressed in the small to moderate. A bowel leak is considered most likely perhaps at the anastomotic site between the colon and small bowel. The oral contrast has not yet entered the distal small bowel/colon on this exam. If clinically indicated delayed CT imaging could obtained in an attempt to demonstrate extravasation of contrast. 3.1 centimeters soft tissue structure which abuts the anterior aspect of the spleen probably represen ting a mass, less likely splenic tissue. Further evaluation with nonemergent MRI would be helpful The exam was discussed with Dr. Carroll at 12:05 p.m. December 02, 2018
[2018-12-02] MEDS: MORPHINE 4 MG/ML SYR IV PRN (13:24)
[2018-12-02] MEDS: ONDANSETRON 4 MG/2 ML VIAL IV PRN (13:29)
--- NOTE | 2018-12-02 14:04 | P.DS ---
Admission Date: 11/30/18 Discharge Date: 12/02/18 Primary Care Provider: Dr. Ramos; Cardiology-Dr. Toledo; Surgery-Dr. Mora Disposition: TRANSFER TO [facility] Discharge Condition: GOOD Reason for Admission: Fever; status post partial colectomy Consultations: Cardiology-Dr. Toledo Surgery-Dr. Johnson Procedures: CT scan: COMPARISON: June 2018 cat scan TECHNIQUE: Computed axial tomography of the abdomen pelvis was obtained. 100 cc Isovue-300 was administered intravenously. Oral contrast was not requested which limits evaluation of bowel. Preliminary report generated by [facility] and reviewed prior to dictation All CT scans are performed using dose optimization technique as appropriate and may include automated exposure control or mA/KV adjustment according to patient size. FINDINGS: The patient is status post right colectomy. Trace pneumoperitoneum is noted. Small pleural effusions. Small amount of ascites. An abscess is not noted. Tiny hepatic lesions are unchanged compatible with cysts or hamartomas. The pancreas, adrenals are unremarkable. Renal cysts bilaterally. Air within the bladder probably secondary to recent instrumentation. The prostate gland is mildly to moderately enlarged. Diverticula stem from the colon without evidence of diverticulitis The wall of the distal stomach appears thickened. Small amount of thrombus is present within a branch of the superior mesenteric vein A diverticulum stems from the duodenum Bilateral lower lobe pulmonary fibrosis IMPRESSION: Right hemicolectomy with small amount of ascites. No abscess is noted Thickening of the wall of the distal stomach may indicate gastritis or be secondary to incomplete distention Small amount of thrombus within a branch of the superior mesenteric vein Follow up CT scan: COMPARISON: June 2018 CT chest and November 30, 2018 CT abdomen TECHNIQUE: Computed axial tomography of the chest, abdomen and pelvis was obtained. 100 cc Isovue-300 was administered intravenously. Oral contrast was given All CT scans are performed using dose optimization technique as appropriate and may include automated exposure control or mA/KV adjustment according to patient size. FINDINGS: COPD. Mild ground-glass opacities within the right lung. Mild pulmonary fibrosis. No mediastinal or hilar lymphadenopathy. Tiny right pleural effusion.. Right hemicolectomy. Pneumoperitoneum has progressed since the prior exam and is small to moderate. The amount of ascites has also progressed and is small to moderate. A fluid-filled mass with an enhancing rim to suggest an abscess is not seen. Small low-density lesions within the liver are unchanged compatible with cysts or hamartomas. A 3.1 centimeter soft tissue structure abuts the anterior aspect of superior spleen. On the previous exam the density was similar to the spleen. However on the current exam it has a lower density than the spleen. Renal cysts are noted. There is no evidence of diverticulitis. Air is present within the bladder. A small amount of thrombus within the superior mesenteric vein is minimally improved IMPRESSION: The amount of pneumoperitoneum has progressed since the prior exam and is small to moderate. The amount of ascites has also progressed in the small to moderate. A bowel leak is considered most likely perhaps at the anastomotic site between the colon and small bowel. The oral contrast has not yet entered the distal small bowel/colon on this exam. If clinically indicated delayed CT imaging could obtained in an attempt to demonstrate extravasation of contrast. 3.1 centimeters soft tissue structure which abuts the anterior aspect of the spleen probably representing a mass, less likely splenic tissue. ABUS: COMPARISON: CT study November 302013 FINDINGS: Gallbladder size is normal. No gallstones, wall thickening or pericholecystic fluid. Common bile duct is normal with no common duct stone identified. Liver shows a lobular contour with a very coarsened heterogeneous echogenicity. This is a pattern consistent with cirrhosis or diffuse hepatic parenchymal disease. Fatty infiltration was not evident on the CT study from the prior day. A focal or suspicious liver lesion is not identified at sonography. No splenomegaly. In the splenic hilum a 4.4 centimeter mass is present hyperechoic to the liver parenchyma. This is hypodense relative to the majority of the spleen on arterial phase imaging and isodense on venous phase imaging. This is a new finding from 2014. The pancreas is obscured. No hydronephrosis or suspicious mass in either kidney. Patient has multiple bilateral renal cysts. No suspicious characteristics at sonography. Aorta and IVC are mostly obscured. Ascites is present matching the CT study. No bulky lymphadenopathy. IMPRESSION: Liver shows a abnormal echotexture from cirrhosis or diffuse hepatic parenchymal disease. No focal liver lesion identified. No gallbladder or biliary tree abnormality. Pancreas was obscured. No pancreatic focal abnormality on the prior day CT study. Approximately 4.4 centimeter splenic mass. Hemangioma would be favored. Malignancy of the spleen is usually associated with malignancy elsewhere. No other malignant process evident. It is unknown if the right hemicolectomy was performed for a colon malignancy. A splenic metastasis as the only distant disease would be unusual. CXR: COMPARISON: November 30 chest examination TECHNIQUE: AP and lateral views of the chest were obtained with the patient seated. FINDINGS: The lungs are underinflated. Lung volumes are diminished compared to the prior study. Diffusely prominent interstitial markings are present. Adjusting for the more shallow inspiration pattern is not substantially different. Heart size and vasculature are similar to comparison. Lateral view is limited due to motion an wheelchair artifacts. No pneumothorax or enlarging pleural effusion. No acute bony finding noted. No aortic abnormality. IMPRESSION: Shallow inspiration film showing no significant change from prior day study. 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 Patient had recent partial colectomy related to colon cancer. Patient was seen and evaluated in the emergency room. ER discussed case with surgeon plumbing engineering draftsperson for his primary surgeon who performed his colectomy. It was advised to monitor patient closely. Patient admitted for further evaluation. Initial CT scan showed small amount of ascites but no abscess or free air. Hospital Course: Patient presented with fever. Patient had recent partial colectomy due to colon cancer. Patient was admitted for further evaluation as initial CT scan was discussed with plumbing engineering draftsperson surgeon for primary surgeon. No significant ascites , free air or abscess was noted. On-call surgeon recommended for the patient to be admitted and to further monitor and evaluate underlying fever. During the course of his stay his white count increased. General surgery was consulted to further evaluate. There was no definitive etiology of the fever as chest x-ray showed no significant pneumonia. An original CT scan showed no abscess. The patient was monitored closely. Patient continued to have fever with increased leukocytosis. Patient also reported some right upper quadrant abdominal pain. KUB showed possible ileus. Due to no significant improvement repeat CT scan performed. Repeat CT scan shows pneumoperitoneum with increased ascites. Radiology suspects anastomotic bowel leak due to recent surgery. Case discussed with primary surgeon who performed the original colectomy. Due to the patient's current condition with increased fever, leukocytosis and possible early sepsis the patient be transferred to [facility] for further evaluation. General surgery did evaluate the patient. General surgery agrees with current plan. No emergent surgery needed at this facility. Case discussed with patient and family. All are in agreement. Patient to be transferred for further evaluation. Patient may require surgical intervention with primary surgeon. Patient currently on IV meropenem. Vital signs stable at this time. Possible early peritonitis likely due to increasing abdominal pain. This was addressed in detail with primary surgeon. Patient was evaluated by cardiology during his stay due to slight elevation in troponin. Patient with history of CAD. No cardiac intervention was required. Initial CT scan showed small thrombus to the mesenteric vein. Patient on DVT prophylaxis. This can be further addressed at [facility]. Patient with history of hypertension. Patient remains on medication. Vital Signs/Physical Exam: Temp Pulse Resp BP Pulse Ox 99.3 F 83 20 131/61 90 L 12/02/18 12:00 12/02/18 12:00 12/02/18 12:00 12/02/18 12:00 12/02/18 12:00 General: Alert, In no apparent distress, Oriented x3, Cooperative HEENT: Atraumatic Neck: Supple Respiratory: Clear to auscultation bilaterally, Normal air movement Cardiovascular: Normal pulses, Regular rate/rhythm Gastrointestinal: Other (Decreased bowel sounds. Slight distention noted since this morning. Pain to the right upper quadrant still present with palpation.) Neurological: Normal speech, Normal strength at 5/5 x4 extr, Normal tone, Normal affect Laboratory Data at Discharge: WBC 20.7 K/uL (4.3-10.9) H* D 12/02/18 04:14 Hgb 9.7 g/dL (13.6-17.9) L 12/02/18 04:14 Hct 29.1 % (39.6-49.0) L 12/02/18 04:14 Plt Count 246 K/uL (152-406) D 12/02/18 04:14 PT 16.2 SECONDS (9.5-12.5) H 11/29/18 23:30 INR 1.37 11/29/18 23:30 Sodium 141 mmol/L (136-145) 12/02/18 04:14 Potassium 4.0 mmol/L (3.5-5.1) 12/02/18 04:14 BUN 20 mg/dL (7-18) H 12/02/18 04:14 Creatinine 1.15 mg/dL (0.55-1.3) 12/02/18 04:14 Glucose 102 mg/dL (74-106) 12/02/18 04:14 Phosphorus 2.9 mg/dL (2.5-4.9) 11/30/18 05:57 Magnesium 2.2 mg/dL (1.8-2.4) 12/02/18 04:14 Total Bilirubin 2.5 mg/dL (0.2-1.0) H 12/02/18 04:14 AST 22 U/L (15-37) 12/02/18 04:14 ALT 26 U/L (12-78) 12/02/18 04:14 Alkaline Phosphatase 85 U/L (45-117) 12/02/18 04:14 Troponin I 0.56 ng/mL (0.0-0.045) H* 11/30/18 05:57 Lipase 93 U/L (73-393) 11/29/18 23:30 Home Medications: Allopurinol 300 mg PO DAILY 01/15/18 Atorvastatin Calcium [Lipitor] 40 mg PO BEDTIME 01/15/18 Isosorbide Mononitrate [Isosorbide Mononitrate ER] 30 mg PO DAILY #90 tab.er.24h 01/15/18 Metoprolol Tartrate [Lopressor] 0.5 mg PO DAILY 01/15/18 Pantoprazole [Protonix Tab*] 40 mg PO DAILY 01/15/18 Aspirin [Aspirin EC 81 MG] 1 tab PO DAILY 11/30/18 Fluticasone/Salmeterol [Advair Hfa 115-21 Mcg Inhaler] 2 puff IH BID* 11/30/18 traMADol HCL [Ultram*] 1 tab PO Q6H PRN 11/30/18 Patient Discharge Instructions: Patient be transferred to [facility] for further evaluation and treatment. Diet: NPO Activity: Bedrest Time spent managing pt's care (in minutes): 55
--- NOTE | 2018-12-02 14:08 | P.PN ---
Date of Service: 12/02/18 S: Patient is D.C. feels slightly worse than he did yesterday. Now having some pain in the right upper portion of that is abdomen. Says this feels similar to when he had a be taken back to the OR for. O: White cell count has elevated, abdominal scan shows increase right upper quadrant abdominal tenderness. Patient is oriented both in time and space. He making urine. Repeat CT scan today shows increase in an pneumoperitoneum. Also increase in amount of ascites. P: This patient, was stable at the moment, most likely has a process in the right upper quadrant was abdomen. The exact delineation of this is not sure but possible early and intervention may be an option on this patient. I have spoken with his hospitalist. He has contacted the surgical team [facility] they are aware , and he will be transferred back to their service. He is stable for transfer.
[2018-12-02] MEDS ORDERED: NA CHLORIDE 0.9% 500 ML IV ONE (15:43)
[2018-12-02] MEDS ORDERED: NA CHLORIDE 0.9% 1,000 ML ONE ×3 (16:38→21:03)
[2018-12-02] MEDS ORDERED: PROPOFOL 200 MG/20 ML VIAL IV ONE (17:28)
[2018-12-02] MEDS ORDERED: LIDOCAINE 2% MPF 5 ML VIAL ONE (17:29)
[2018-12-02] MEDS ORDERED: ROCURONIUM 50 MG/5 ML VIAL IV ONE (17:29)
[2018-12-02] MEDS ORDERED: Phenylephrine HCl 10 MG/ML 1 ML VIAL ONE (17:30)
[2018-12-02] MEDS ORDERED: SUCCINYLCHOLINE 20 MG/ML (10 ML) IV ONE (17:31)
--- NOTE | 2018-12-02 17:39 | P.PN ---
Date of Service: 12/02/18 S: This evening patient has increasing abdominal pain. Hurts anytime she tries to move. Was very very uncomfortable. Required morphine to alleviated. O: Patient is given some morphine, became mildly hypotensive. Was given IV fluids. Then transfer to the ICU for observation and stabilization. Clinically appears to be developing peritonitis. A: Surgical abdomen P: Apparently effort to transfer patient to [facility] to his original OR team are going to be unsuccessful. I believe he needs to go to the operating room for exploratory laparotomy. The risks of this procedure have been discussed with the patient and his family. The possibility of bleeding, infection, injury to bowel and surrounding structures were outlined. The probable need for an ostomy was explained. The fact that may be permanent was outlined. Injury to other intra-abdominal organs and blood vessels were described. The possible unforeseen circumstances were also described. They understand and want us to proceed.
[2018-12-02] MEDS ORDERED: FENTANYL CITR 100 MCG/2 ML ONE (18:32)
[2018-12-02] MEDS ORDERED: LANO/MINERAL OIL/PETRO 3.5 GM ONE (18:48)
[2018-12-02] MEDS ORDERED: Caclcium Chloride 10% INJ SYR IV ONE (19:28)
--- NOTE | 2018-12-02 20:31 | P.OP ---
Clinical Biochemist: Dr. De Dios Preoperative diagnosis: Acute abdomen Postoperative diagnosis: Peritonitis with intra-abdominal abscess and anastomotic breakdown Primary procedure: Resection of ileal colic anastomosis, Secondary procedure: Ileostomy Other procedure(s): Drainage of intra-abdominal abscess sees with the irrigation of the periton Anesthesia: General Estimated blood loss: Less than 50 cc Specimen: Ileal colic anastomosis, resected omentum Operative Technique: The patient was brought to the operating room and placed supine on the table. After the induction of adequate general endotracheal anesthesia, the area of the abdomen was prepped with a Betadine solution, and he was draped in the usual aseptic manner. A midline incision was made. This was brought down through the skin and subcutaneous tissue. The fascia was divided in the upper abdomen. The peritoneum was then grasped between hemostats, sharply incise 2 lot access to the peritoneal cavity. Upon cutting the peritoneum we actually headache us of air from the peritoneal cavity itself. On opening this incision out for the full length of our wound, we could see distended loops of small bowel. There was obviously leakage of small bowel contents into the peritoneal cavity itself. The abdomen was now irrigated with a copious amount of saline solution to clear up all these known particulate matter, and soft adhesions that had formed. The small bowel was run from the ligament of Treitz down to the ileal colic anastomosis. At this point as we manipulated this we could see that there was a leakage at the junction of the ileum with the transverse colon. A quick suture was placed to control this contamination. At this point the ALEXSANDRA was now placed across the distal ileum and fired. A another Stapler was placed across the transverse colon and this portion was divided as well. The mesentery was taken down using the ligature. The specimen having been detached, attention was turned towards the distal ileum. We were able to gently resect this thickened mesentery away from the tip sedated through brought out for anastomosis. This was done using the ligature. The secure portion of bowel was now placed back into the peritoneal cavity. Once again copious amounts of a saline solution were used to wash out the peritoneal cavity. This included the area up over the liver were again a pocket had formed. This was cleared out. The spleen itself was also was noted to have some fluid as well. A Ollie- Ruff drain was placed into the true pelvis and brought out in the left lower quadrant. A Ollie-Ruff drain was placed up over the liver, around Morison's pouch, and brought out through the right lower quadrant. At this point a plug of skin was removed from the anterior abdominal wall. A cruciate incision was made over the lateral aspect of the rectus muscle. The post the muscle was now spread. The posterior sheath was then opened. This distal ileum was brought up to the skin level so we may fashioned a ileostomy was the peritoneal cavity had been close. It was delivered up and secured to the fascia with some intraperitoneal sutures. We were able to check the viability of this bowel throughout the closure. At this point the abdomen was secured and the fascia approximated with a running suture of 0 all loops PDS. 1 was started from the top, 1 from the top, and these were tied at the umbilicus. The wound was then irrigated with a saline solution. The skin was loosely approximated using nina. Iodoform gauze was placed between the nina. Attention was turned back over towards the ileostomy. Once again it was opened and matured in the usual manner using 3 0 chromic to secure it. At this point an appliance had been placed over the ileostomy. The dressing had been placed under midline incision. Attention was turned towards the left subclavicular area. This area was cleansed with a chlorhexidine solution and draped in usual manner. Using a finer needle and the patient Douglas expert prior toward pause we were able to cannulate the left subclavian vein. A guidewire was passed down through this easily. We were able do this on the 1st pass of our needle. These using a modified Seldinger technique the catheter was then placed at approximately 25 cm. This was then affixed using the appliance. The catheter was flushed with SC was applied. We will confirm its position when the patient reaches the ICU in addition a confirming the position of the nasogastric an ET tube. It should be noted that the nasogastric tube was checked prior to closure of the peritoneum. At this point the patient was in a stable condition and our needle and sponge count were correct. Specimens of the anastomosis, omentum, were sent for histopathology. Then he was in a stable condition when sent to the ICU. Drain(s): Nasogastric, Urinary catheter, RHYS drain (X2) Transferred to: Recovery Room Condition: Good
[2018-12-02] MEDS ORDERED: PROPOFOL 1,000 MG/100 ML VIAL IV ONE (20:35)
[2018-12-02] MEDS: ATORVASTATIN 40 MG TAB PO SCH (21:00)
--- NOTE | 2018-12-02 21:02 | RAD REPORT ---
EXAM DESCRIPTION: RAD - Chest Single View - 12/02/2018 8:55 pm CLINICAL HISTORY: Status post insertion of left subclavian, ET and N Chest pain. COMPARISON: Abdomen 1 View (KUB) dated 12/01/2018; Chest Pa And Lat (2 Views) dated 12/01/2018; Chest Pa And Lat (2 Views) dated 11/30/2018; Chest Single View dated 11/29/2018 FINDINGS: Portable technique limits examination quality. Enteric tube descends into the stomach. ET tube tip appears above the shayan. Left-sided venous manny ter has tip in the SVC. No pneumothorax.
[2018-12-02] MEDS ORDERED: NOREPINEPHRINE 4 MG in D5W 250 ML IV PRN (22:29)
[2018-12-02] MEDS ORDERED: PROPOFOL 1,000 MG/100 ML VIAL IV PRN (22:47)
[2018-12-02] MEDS: NA CHLORIDE 0.9% 1,000 ML IV SCH (23:14)
[2018-12-02] MEDS ORDERED: NOREPINEPHRINE 4 MG/4 ML VIAL ONE (23:31)
[2018-12-02] MEDS ORDERED: D5W 250 ML IV ONE (23:31)
[2018-12-03] MEDS: Meropenem 1,000 MG in NA CHLORIDE 0.9% 100 ML IV SCH ×3 (00:33→21:35)
[2018-12-03] MEDS: NA CHLORIDE 0.9% 250 ML IV PRN ×5 (02:10→15:58)
[2018-12-03] MEDS: MORPHINE 4 MG/ML SYR IV PRN (04:35)
[2018-12-03 05:13] LABS: Absolute Lymphocytes (CBC) 0.8 K/uL (0.7-4.9); Absolute Monocytes 0.8 K/uL (0.1-1.3); Absolute Neutrophil 19.3 K/uL (1.8-8.0); Basophils % 0.1 % (0-1.3); Hematocrit 30.6 % (39.6-49.0); MPV 8.7 fL (7.6-11.3); Monocytes % 3.8 % (3.3-12.3); RBC Red Blood Cell Count 3.13 M/uL (4.33-5.43)
[2018-12-03 05:32] LABS: Albumin 1.7 g/dL (3.4-5.0); Bilirubin Total 2.1 mg/dL (0.2-1.0); Phosphorus 5.3 mg/dL (2.5-4.9); Potassium 4.5 mmol/L (3.5-5.1); Protein, Total 3.9 g/dL (6.4-8.2)
[2018-12-03] MEDS ORDERED: NA CHLORIDE 0.9% 1,000 ML IV ONE (07:12)
[2018-12-03] MEDS ORDERED: FENTANYL CITR 100 MCG/2 ML IV PRN (07:13)
--- NOTE | 2018-12-03 07:17 | ECHO ---
HEIGHT: 6 ft 1 in WEIGHT: 198 lb 0 oz DATE OF STUDY: 12/02/[address]: Otto Carroll DO 2-DIMENSIONAL: YES M.MODE: YES DOPPLER: YES COLOR FLOW: YES TDS: PORTABLE: DEFINITY: BUBBLE STUDY: DIAGNOSIS: FEVER CARDIAC HISTORY: CATHERIZATION: YES SURGERY: NO PROSTHETIC VALVE: NO PACEMAKER: NO MEASUREMENTS (cm) DIASTOLIC (NORMALS) SYSTOLIC (NORMALS) IVSd 1.3 (0.6-1.2) LA Diam 5.6 (1.9-4.0) LVEF 55% LVIDd 5.7 (3.5-5.7) LVIDs 4.6 (2.0-3.5) %FS 30% LVPWd 1.4 (0.6-1.2) Ao Diam 3.3 (2.0-3.7) 2 DIMENSIONAL ASSESSMENT: RIGHT ATRIUM: NORMAL LEFT ATRIUM: DILATED RIGHT VENTRICLE: NORMAL LEFT VENTRICLE: LEFT VENTRICULAR HYPERTROPHY TRICUSPID VALVE: NORMAL MITRAL VALVE: NORMAL PULMONIC VALVE: NORMAL AORTIC VALVE: SCLEROSIS PERICARDIAL EFFUSION: NONE AORTIC ROOT: NORMAL LEFT VENTRICULAR WALL MOTION: NORMAL DOPPLER/COLOR FLOW: MILD MITRAL AND TRICUSPID REGURGITATION COMMENTS: MILD MITRAL AND TRICUSPID REGURGITATION. LEFT VENTRICULAR HYPERTROPHY. AORTIC SCLEROSIS. NO THROMBUS. NO VEGETATION. NORMAL EJECTION FRACTION. TECHNOLOGIST: DMITRY MONTES
[2018-12-03] MEDS: METOPROLOL TAR 50 MG TAB PO SCH (07:22)
[2018-12-03] MEDS: ISOSORBIDE MONO SR 30 MG TAB PO SCH (07:22)
[2018-12-03] MEDS: ATORVASTATIN 40 MG TAB PO SCH (07:23)
[2018-12-03] MEDS: ALLOPURINOL 300 MG TAB PO SCH (07:23)
[2018-12-03] MEDS: PANTOPRAZOLE 40MG TABLET PO SCH (07:23)
[2018-12-03] MEDS: FERROUS SULFATE 325 MG TAB PO SCH (07:23)
[2018-12-03] MEDS: CYANOCOBALAMIN 1,000 MCG TAB PO SCH (07:23)
[2018-12-03] MEDS: DULERA 100/5 (MOMETASONE/FORMOTEROL) INHALER IH SCH (07:24)
[2018-12-03] MEDS: FUROSEMIDE 20 MG TABLET PO SCH (07:24)
[2018-12-03] MEDS: ASPIRIN EC 81 MG TAB PO SCH (07:24)
[2018-12-03] MEDS: NA CHLORIDE 0.9% 1,000 ML IV SCH ×4 (07:39→21:35)
--- NOTE | 2018-12-03 08:43 | RAD REPORT ---
EXAM DESCRIPTION: RAD - Chest Single View - 12/03/2018 7:33 am CLINICAL HISTORY: intubated/ fluid overload Chest pain. COMPARISON: Chest Single View dated 12/02/2018; Abdomen 1 View (KUB) dated 12/01/2018; Chest Pa And La t (2 Views) dated 12/01/2018; Chest Pa And Lat (2 Views) dated 11/30/2018 FINDINGS: Portable technique limits examination quality. ET tube tip is above the shayan. Enteric tube descends in the stomach. The lungs are underinflated wi th atelectasis in both lower lobes. Heart size is mildly prominent. Left-sided venous catheter has ti p the SVC.
[2018-12-03] MEDS: ENOXAPARIN 40 MG/0.4 ML SQ SCH (10:41)
--- NOTE | 2018-12-03 11:13 | P.PN ---
Date of Service: 12/03/18 S: Patient appears to be comfortable on the ventilator. Indicates that his pain medicine is adequate and in good control. O: Vital signs are stable, urine has been marginal. White cell count is elevated. Serum albumin is very low at 1.9. Minimal out through RHYS drains. A: Surgically stable at the moment. P: Today we will try to stabilize the patient's fluid status. He is currently on Levophed for blood pressure support. Apparently going to be extubated later on today. We would benefit from some nutritional support. Will discuss this with Dr. Andrade.
--- NOTE | 2018-12-03 11:42 | PN ---
Date of Progress Note: 12/03/2018 Mr. Ramirez has been in the hospital for a fever of unknown origin. He has a history of colectomy for colon cancer recently and a leak at the anastomotic site in his colon was found yesterday, probably c ausing his fever. An echocardiogram was done showing a normal ejection fraction. He was cleared for surgery. He underwent surgery by Dr. Johnson yesterday. The patient is still intubated, hypotensiv e, on Levophed, probably secondary to the sepsis and propofol. He is in sinus rhythm. No further ca rdiac interventions. At this point, we will continue to follow him. GORDY/NAILA Voice ID: [id number] Report ID: [id number]
[2018-12-03] MEDS ORDERED: Pharmacy Consult 1 EA XX PRN (11:57)
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
[2018-12-03] MEDS: ARFORMOTEROL TARTRATE 15 MCG/2 ML VIAL.NEB NEB SCH ×2 (12:01→19:39)
[2018-12-03] MEDS: FENTANYL CITR 100 MCG/2 ML IV PRN ×2 (12:15→21:36)
[2018-12-03] MEDS ORDERED: VANCOMYCIN 1.5 GM in NA CHLORIDE 0.9% 500 ML IVPB SCH (13:00)
--- NOTE | 2018-12-03 13:22 | P.PN ---
Subjective Date of Service: 12/03/18 Primary Care Provider: Dr. Ramos; Cardiology-Dr. Toledo; Surgery-Dr. Mora Chief Complaint: Fever Subjective: Other (Patient intubated at this time. Patient on vasopressor.) Physical Examination - Vital Signs Temperature: 97.4 F Blood Pressure: 85/57 Pulse: 99 Respirations: 13 Pulse Ox (%): 99 - Physical Exam General: Alert, In no apparent distress, Other (Patient intubated) HEENT: Atraumatic Neck: Supple Respiratory: Clear to auscultation bilaterally, Normal air movement Cardiovascular: Normal pulses, Regular rate/rhythm Gastrointestinal: Hypoactive, Other (Postsurgical changes noted.) Integumentary: No warmth, No cyanosis, Tenderness/swelling (Some edema to the extremities) - Studies Medications List Reviewed: Yes Assessment & Plan Discharge Plan: Other (correction facility) Plan to discharge in: Greater than 2 days Physician Review Additional Text: Impression: Septic shock secondary to peritonitis with intra-abdominal abscess and anastomotic breakdown status post 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, postop day 1 Acute renal failure likely related to septic shock Bilateral small pleural effusions COPD Elevated troponin with history of CAD Recent right hemicolectomy with small amount of ascites GERD 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 Patient on Levophed to maintain blood pressures. Will provide IV fluid bolus today. Will try to wean off vasopressor. Will discuss case further with surgery and pulmonology. Pulmonology plans to wean off ventilator. Continue with IV antibiotic therapy-vancomycin and meropenem. Will provide DVT prophylaxis. Will consider TPN. Continue to monitor closely. Will adjust medication Acute renal failure likely secondary to septic shock: Will consult Nephrology to further evaluate. Continue with IV fluid. Continue with vasopressor to maintain blood pressures. Bilateral small pleural effusions: Recheck x-ray again today. COPD: Will continue with medication. Patient currently intubated. Elevated troponin with history of CAD: Case discussed with cardiology yesterday. Overall stable. No need for cardiac intervention. Recent right hemicolectomy for colon cancer: Case discussed his prior surgeon. Continue as above. Patient had emergent surgery yesterday. GERD: Will continue with medication. 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 Anemia likely of chronic disease with iron and B12 deficiency: Will monitor closely. Elevated liver function with noted tiny hepatic lesions likely compatible with cysts: LFT appears improved. Abdominal ultrasound unremarkable yesterday. Will obtain CT scan to further address. Time Spent Managing Pts Care (In Minutes): 55
[2018-12-03] MEDS ORDERED: SODIUM CHLORIDE 0.9% 10ML INJ IV PRN (13:25)
--- NOTE | 2018-12-03 14:24 | CON ---
INFECTIOUS DISEASE CONSULT History Of Present Illness: The patient is a 78-year-old male, coming in with abdominal pain. The patient had recent surgery done at [facility] by surgical team colorectal surgeon, Dr. Mora operated on colon cancer and did a partial colectomy. The patient was found to have on CT scan, pneumomediastinum being in the process of transferring to [facility] for further care. Past Medical History: COPD, paralyzed diaphragm, brain aneurysm, coronary artery disease, hypertension, dyslipidemia, craniotomy, angioplasty, skin graft , RCA stents. Social History: Tobacco and alcohol, negative. Family History: Noncontributory. Medications: Meropenem. See MARs for other medication. Allergies: NO KNOWN DRUG ALLERGIES. Review of Systems: A 10-point review was performed. Physical Examination: General: This is a 78-year-old male, lying in bed, not in acute cardiopulmonary distress. Vital Signs: Temperature 99.3, pulse 83, respirations 18, blood pressure 131/ 61. HEENT: Unremarkable. Neck: Supple. Lungs: Basal crackles. Heart: S1, S2. Regular. Abdomen: Tenderness in all 4 quadrants. Extremities: Trace edema. Laboratory Data: Shows WBC 20,000, hemoglobin 9.7, platelets 246. Chemistry shows sodium 141, potassium 4, chloride 111, bicarb 24, BUN 20, creatinine 1.15 , glucose is 102. Micro Data: Blood cultures are still pending. Assessment And Plan: A 78-year-old male, status post surgery for colorectal cancer, coming in the abdominal pain. CT scan showing pneumomediastinum with ascites and bowel leak site. Agree with transferring the patient to [facility]. Continue broad-spectrum antibiotic. We will follow the patient as needed. Thank you, Dr. Carroll, for consult. NF/MODL Voice ID: [id number] Report ID: [id number] JONATHAN
--- NOTE | 2018-12-03 17:23 | CON ---
Date of Consultation: 12/03/2018 Additional Consulting Physician: Otto Carroll DO Reason For Consultation: Elevated BUN and creatinine, fluid management. History Of Present Illness: This is a pleasant 78-year-old gentleman with significant past medical h istory of colon cancer, status post partial resection with complicated surgery back on November 21 with partial colectomy. At that time, his surgery was a complicated procedure. Had significant b lood loss. The patient was apparently released from [facility] around the or , spen t 1 night at home, then felt back worse again with fever and chills. For that reason, he came to the emergency room. Workup showed possible abscess under Surgery on the , and another surgery on with washing and drainage of abscess. During the surgery, the patient had low blood pressure and was oliguric. For that reason, we have been consulted. The patient denied taking any nonsteroid al, no IV contrast. Upon admission, creatinine was 0.9, then, on the creatinine 1.1. Today, cr eatinine of 2. Reviewing the record as I mentioned, the patient's blood pressure being on the low 80 . The patient denied taking any nonsteroidal. The patient had CT contrast on the . The patient, intubated and extubated. Past Medical History: Includes: 1.Gout. 2.Coronary artery disease. Ejection fraction of 55. 3.COPD. 4.Colon CA, status post partial colectomy. Home Medications: Include allopurinol 300, aspirin, atorvastatin, Lasix 20 daily, isosorbide, metopr olol 100, pantoprazole. Family History: Positive for hypertension. Social History: Denies smoking. Denies drinking. Denies drug abuse. Review of Systems: Head and Neck: No red eye. No ear pain. GI: Has abdominal pain. Has nausea. No vomiting. : No polyuria. No dysuria. No hematuria. ANNEALER: Not applicable. Respiratory: No shortness of breath. Cardiovascular: No chest pain. Has anasarca. Musculoskeletal: No joint pain. Endocrine: No polydipsia. Skin: No rash. Physical Examination: Vital Signs: When I saw the patient, blood pressure 85/57, pulse of 99. Chest: Clear to auscultation. Heart: S1, S2. Systolic murmur. Abdomen: Soft. Mild tenderness. Extremities: +2 edema. Neurologic: Alert and oriented x3. Nonfocal. Laboratory Data: Chest x-ray showing no infiltration, mild congestion. Sodium 144, potassium 4.5, c hloride 116, bicarb 19, BUN 31, creatinine of 2, calcium 7.1, phosphorus 5.3, magnesium of 2, procalc itonin 4.6. WBC 21.0, H and H 10.3/30.6, platelet 334. Urinalysis, negative for infection. Current Medications: The patient on its include meropenem 1 g b.i.d., vancomycin 1.5 g q.36, Levophe d, propofol, Zofran, IV fluid. Assessment And Plan: 1.Acute kidney injury secondary to contrast-induced nephropathy, prerenal, secondary to low blood pr essure/toxic acute tubular necrosis, secondary to sepsis. Oliguric. Mild acidosis. No hyperkalemia . a.I am going to continue hydration. We will decrease IV fluid to 100 per hour, and we will bolus th e patient again to maintain MAP around 65. b.I am going to let with edema that the patient has for the time being till we establish good urine output. At that time, we may start diuresis, but for the time being the patient will be intravascula rly depleted. We will continue fluid resuscitation. I am going to go ahead and send for protein cre atinine. We will follow up vancomycin trough, and given the acute kidney injury, we will try to esta blish good urine output. 2.Hypertension, currently hypotensive. Hold all blood pressure medications. 3.Anasarca, possible secondary to renal failure. I am going to send for protein creatinine, and we will send for TSH. We will follow up. 4.Abdominal abscess, post-surgery infection. Continue current antibiotic dose appropriate. We will follow up vancomycin trough. 5.Septic shock, respiratory failure. Continue fluid resuscitation. The patient is extubated. We w ill follow up with Pulmonary. 6.Gout, no activity. We will keep holding allopurinol. 7.Mild acidosis secondary to renal failure. No need for bicarb supplement for the time being. Thank you, Dr. Carroll, for allowing us to participate in the care of your patient. YUE/NAILA Voice ID: [id number] Report ID: [id number]
[2018-12-03 18:16] LABS: Urine Protein/Creatinine Ratio 0.27 ratio (<0.15)
[2018-12-04] MEDS: NA CHLORIDE 0.9% 1,000 ML IV SCH ×2 (02:00→13:40)
[2018-12-04 07:08] LABS: Absolute Lymphocytes (CBC) 0.5 K/uL (0.7-4.9); Absolute Monocytes 0.5 K/uL (0.1-1.3); Absolute Neutrophil 12.2 K/uL (1.8-8.0); Basophils % 0.2 % (0-1.3); Eosinophils % 0.5 % (0-4.4); Hematocrit 26.6 % (39.6-49.0); Lymphocytes % 3.7 % (15.3-44.8); MPV 8.4 fL (7.6-11.3); Monocytes % 4.1 % (3.3-12.3); RBC Red Blood Cell Count 2.71 M/uL (4.33-5.43)
[2018-12-04 07:41] LABS: Albumin 1.6 g/dL (3.4-5.0); Bilirubin Total 1.4 mg/dL (0.2-1.0); Magnesium 2.1 mg/dL (1.8-2.4); Potassium 4.1 mmol/L (3.5-5.1)
[2018-12-04] MEDS: THIAMINE 200 MG/2 ML INJ IVP SCH (08:18)
[2018-12-04] MEDS: ENOXAPARIN 40 MG/0.4 ML SQ SCH (08:18)
[2018-12-04] MEDS: PANTOPRAZOLE 40 MG INJ IVP SCH (08:18)
[2018-12-04] MEDS: Meropenem 1,000 MG in NA CHLORIDE 0.9% 100 ML IV SCH ×2 (08:18→20:20)
[2018-12-04] MEDS: ASPIRIN EC 81 MG TAB PO SCH (08:18)
[2018-12-04] MEDS: ARFORMOTEROL TARTRATE 15 MCG/2 ML VIAL.NEB NEB SCH ×2 (08:24→19:36)
--- NOTE | 2018-12-04 08:50 | RAD REPORT ---
EXAM DESCRIPTION: [facility]ued[facility] Single View12/04/2018 6:40 am CLINICAL HISTORY: Shortness of breath COMPARISON: December 03 FINDINGS: Mild bibasilar atelectasis is present. Upper lobes appear clear. Heart remains enlarged. Nasogastric tube has its tip in the distal stomach. A central venous catheter remains in place
[2018-12-04 08:52] LABS: Thyroid Stimulating Hormone 4.78 uIU/mL (0.360-3.740)
[2018-12-04] MEDS ORDERED: GLUCAGON 1 MG/VIAL IM PRN (09:21)
[2018-12-04] MEDS ORDERED: D50W 25 GM/50 ML SYRINGE IV PRN (09:21)
[2018-12-04] MEDS ORDERED: CALCIUM GLUC 10% INJ 4.65 MEQ in NA CHLORIDE 0.9% 100 ML IV ONE (09:34)
--- NOTE | 2018-12-04 09:42 | P.PN ---
Subjective Date of Service: 12/04/18 Primary Care Provider: Dr. Ramos; Cardiology-Dr. Toledo; Surgery-Dr. Mora Chief Complaint: Fever Subjective: Doing well Physical Examination - Vital Signs Temperature: 97.4 F Blood Pressure: 104/59 Pulse: 101 Respirations: 28 Pulse Ox (%): 100 - Physical Exam General: Alert, In no apparent distress, Oriented x3, Cooperative HEENT: Atraumatic Neck: Supple Respiratory: Other (Poor inspiration and expiration but stable and clear) Cardiovascular: Normal pulses, Regular rate/rhythm Gastrointestinal: Hypoactive, Non-distended, Other (Postop changes noted), Tenderness (tenderness still noted but expected) Integumentary: No erythema, No warmth, No cyanosis Neurological: Normal speech, Normal strength at 5/5 x4 extr, Normal tone, Normal affect - Studies Medications List Reviewed: Yes Assessment & Plan Discharge Plan: Other ([facility] facility) Plan to discharge in: Greater than 2 days Physician Review Additional Text: Impression: Septic shock secondary to peritonitis with intra-abdominal abscess and anastomotic breakdown status post 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, postop day 2 Acute renal failure likely related to septic shock Bilateral small pleural effusions with bilateral atelectasis COPD Elevated troponin with history of CAD Recent right hemicolectomy with small amount of ascites GERD Small 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 Patient doing well this time. Patient now off Levophed. Patient given several boluses of IV fluid. Blood pressure stable at this time. Continue with IV fluids. Continue IV antibiotic therapy including vancomycin and meropenem. Will have dietary assess to start TPN. Case discussed with pulmonology, nephrology and surgery yesterday. Will discuss with surgery on when patient can ambulate. Will discuss with vp client services and family along with patient about skilled placement in the near future. Continue with incentive spirometer. Acute renal failure likely secondary to septic shock: Likely from hypovolemia. Patient off Levophed. Continue with IV fluids. Nephrology has adjusted IV fluids. Will continue to monitor closely and follow along. Bilateral small pleural effusions with bilateral atelectasis: Recheck x-ray again today. Continue monitor closely. Encourage incentive spirometer. Maintain sats above 90%. COPD: Will continue with medication. Elevated troponin with history of CAD: Case discussed with cardiology yesterday. Overall stable. No need for cardiac intervention. Recent right hemicolectomy for colon cancer: Case discussed his prior surgeon. Continue as above. Will have dietary initiate TPN. GERD: Will continue with medication. 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 Anemia likely of chronic disease with iron and B12 deficiency: Will monitor closely. Elevated liver function with noted tiny hepatic lesions likely compatible with cysts: LFT appears improved. Abdominal ultrasound unremarkable yesterday. Will obtain CT scan to further address. Moderate malnutrition with hypoalbuminemia: Will consult dietary to initiate TPN Anemia postop: Will continue monitor closely. Time Spent Managing Pts Care (In Minutes): 55
[2018-12-04] MEDS ORDERED: DEXTROSE 10%-WATER 500 ML IV SCH (10:00)
[2018-12-04] MEDS ORDERED: FUROSEMIDE 40 MG/4 ML VIAL IV ONE (10:57)
[2018-12-04] MEDS ORDERED: FUROSEMIDE 40 MG in NA CHLORIDE 0.9% 50 ML IV ONE (11:00)
[2018-12-04] MEDS: FENTANYL CITR 100 MCG/2 ML IV PRN (11:26)
[2018-12-04] MEDS: INSULIN -REGULAR HUMAN 50 UNIT/0.5 ML ML SQ SCH ×2 (12:00→17:37)
--- NOTE | 2018-12-04 13:29 | P.PN ---
Date of Service: 12/04/18 S: The patient is extubated, sitting quietly in the bed, appears quite comfortable. Minimal out through the nasogastric tube. RHYS drains in place, serosanguineous drainage. O: Abdomen is soft, ileostomy is viable. Iodoform gauze removed from midline incision and incision is clean. A: Surgically stable P: This still has postop ileus, is going to be started on TPN this evening. Continue to mobilize patient.
[2018-12-04] MEDS: VANCOMYCIN 1.5 GM in NA CHLORIDE 0.9% 500 ML IVPB SCH (13:39)
[2018-12-04] MEDS: ONDANSETRON 4 MG/2 ML VIAL IV PRN (14:51)
[2018-12-04] MEDS: MORPHINE 4 MG/ML SYR IV PRN ×3 (14:52→20:44)
[2018-12-04] MEDS ORDERED: AA 5%/D20W/ELECTROLYTES-TPN 2,000 ML, Lipids 20% 250 ML with MULTIVITAMINS INJ 10 ML IV SCH ×3 (17:00)
--- NOTE | 2018-12-04 17:01 | PN ---
Date of Progress Note: 12/04/2018 NEPHROLOGY FOLLOWUP Subjective: The patient was admitted with septic shock, intubated, extubated, had acute kidney injur y secondary to contrast, poor perfusion ATN. Over the night, the patient received fluid resuscitatio n. Blood pressure stabilized, weaned from pressor. Physical Examination: Vital Signs: Blood pressure 104/59, pulse of 101, afebrile. Chest: Faint crackles bilateral base. Heart: S1 and S2. Systolic murmur. Abdomen: Soft, mild tender. Extremities: +2 edema. Laboratory Data: WBC 13.3, H and H of 8.8 and 26.6, platelets 236. Sodium 146, potassium 4.1, bicar b 18, chloride 120, BUN 50, creatinine 2.5, calcium 6.6, phosphorus 5, magnesium 2.1, albumin 1.6, co rrected calcium is 8.6. TSH 4.7. Protein creatinine 0.7. Current Medications: The patient on include, 1.IV fluid. 2.Aspirin. 3.Meropenem. 4.Vancomycin 1.5 every 36 hours. 5.Lovenox. 6.Zofran. 7.Pantoprazole. Assessment And Plan: 1.Acute kidney injury secondary to contrast, poor perfusion acute tubular necrosis, toxic acute tubu lar necrosis, oliguric, slightly on the wet side. I am going to go ahead when TPN started, we will h old the IV fluid. We will give the patient Lasix 40 with a slow infusion and we will continue to mon itor the patient. 2.Acidosis, non-anion gap, secondary to gastrointestinal loss and IV fluid. I do not see the need f or replacement with sodium bicarb for the time being. We will follow up. 3.Septic shock secondary to peritonitis, abdominal abscess. The patient is on antibiotic. We will follow up vancomycin trough. 4.Anasarca secondary to malnourished. The patient is going to be started on TPN. We will discontin ue IV fluid and restarting Lasix and we will monitor. YUE/NAILA Voice ID: [id number] Report ID: [id number]
[2018-12-05] MEDS: MORPHINE 4 MG/ML SYR IV PRN ×5 (01:28→17:30)
[2018-12-05 05:23] LABS: Absolute Lymphocytes (CBC) 0.5 K/uL (0.7-4.9); Absolute Monocytes 0.5 K/uL (0.1-1.3); Absolute Neutrophil 10.3 K/uL (1.8-8.0); Basophils % 0.2 % (0-1.3); Eosinophils % 1.6 % (0-4.4); Hematocrit 24.6 % (39.6-49.0); Lymphocytes % 4.4 % (15.3-44.8); MPV 8.3 fL (7.6-11.3); Monocytes % 4.4 % (3.3-12.3); RBC Red Blood Cell Count 2.48 M/uL (4.33-5.43)
[2018-12-05 05:46] LABS: Albumin 1.4 g/dL (3.4-5.0); Bilirubin Total 1.1 mg/dL (0.2-1.0); Magnesium 2.2 mg/dL (1.8-2.4); Phosphorus 4.3 mg/dL (2.5-4.9); Potassium 3.7 mmol/L (3.5-5.1); Protein, Total 3.8 g/dL (6.4-8.2)
[2018-12-05] MEDS: INSULIN -REGULAR HUMAN 50 UNIT/0.5 ML ML SQ SCH ×4 (06:00→18:00)
[2018-12-05] MEDS ORDERED: KCL 20 MEQ/100 mL IVPB 20 MEQ/100 ML BAG IV SCH (07:00)
[2018-12-05] MEDS: ARFORMOTEROL TARTRATE 15 MCG/2 ML VIAL.NEB NEB SCH ×2 (07:54→20:30)
[2018-12-05] MEDS: ENOXAPARIN 30 MG/0.3 ML SQ SCH (08:09)
[2018-12-05] MEDS: PANTOPRAZOLE 40 MG INJ IVP SCH (08:09)
[2018-12-05] MEDS: ONDANSETRON 4 MG/2 ML VIAL IV PRN (08:09)
[2018-12-05] MEDS: THIAMINE 200 MG/2 ML INJ IVP SCH (08:10)
[2018-12-05] MEDS: Meropenem 1,000 MG in NA CHLORIDE 0.9% 100 ML IV SCH ×2 (08:10→20:35)
[2018-12-05] MEDS: ASPIRIN EC 81 MG TAB PO SCH (08:18)
[2018-12-05 09:20] LABS: Hematocrit 24.1 % (39.6-49.0)
--- NOTE | 2018-12-05 11:46 | RAD REPORT ---
EXAM DESCRIPTION: US - Scrotum Testicles - 12/05/2018 11:29 am CLINICAL HISTORY: Scrotal pain, scrotal edema and swelling COMPARISON: None. FINDINGS: Each epididymis is normal in size with no solid or cystic mass. No epididymis hyperemia. Right testicle is 3.5 x 2.6 x 2.6 cm. Left testicle is 3.1 x 2.5 x 2.7 cm. Testicular tissue is homog eneous. Doppler evaluation shows normal blood flow in each testicle. No testicular mass. Moderate-sized bilateral hydroceles are present. Patient has scrotal wall edema but no abscess or foc al fluid collection. IMPRESSION: Bilateral moderate-sized hydroceles and scrotal wall edema. No testicular or epididymis abnormalities. No abscess, drainable fluid collection or other emergent finding seen.
[2018-12-05] MEDS ORDERED: MINERAL OIL 30 ML UCUP PO ONE (11:52)
--- NOTE | 2018-12-05 11:56 | PN ---
Date of Progress Note: 12/05/2018 NEPHROLOGY FOLLOWUP Subjective: The patient is slightly better. Yesterday, we started the patient on Lasix, received 40 of Lasix. The patient's response with urine output almost 1300. Blood pressure still maintained sy stolic around 100-110. Physical Examination: Vital Signs: Blood pressure 108/48, pulse of 84. Chest: Crackles bilateral base. Heart: S1, S2. Systolic murmur. Abdomen: Soft. Extremities: Compression dressing. Extremity, +1 edema, more prominent on the upper extremity. Laboratory Data: WBC 11.5, H and H 8/24.6, platelets of 179. Sodium 149, potassium 3.7, bicarb 19, chloride 120, BUN 58, creatinine 2.4, calcium 7, phosphorus 4.3, magnesium 2.2, albumin 1.4, correcte d calcium of 9. Current Medications: The patient on include: 1.Meropenem. 2.Vancomycin. 3.Lovenox. 4.Zofran. 5.TPN. Assessment And Plan: 1.Acute kidney injury secondary to contrast induced nephropathy, poor perfusion, acute tubular necro sis. We managed to convert it to non-oliguric to me. The patient is still on the over volume side. I am going to continue with the diuresis. We will give another dose of Lasix today, and we will mon itor the patient. 2.Hypernatremia secondary to gastrointestinal loss. I am going to go ahead and change the TPN to 0 sodium. 3.Hypokalemia. We will adjust the TPN to 80. Continue supplement. 4.Abdominal abscess, peritonitis. Continue current antibiotic. We will follow up with the primary. Vancomycin trough still acceptable. 5.Congestive heart failure. We will continue current diuresis. 6.Septic shock recover. Currently blood pressure off of pressor. Continue current antibiotic. We will follow up with Surgery and with Primary. YUE/MODL Voice ID: [id number] Report ID: [id number]
[2018-12-05] MEDS ORDERED: MINERAL OIL 30 ML UCUP ONE (12:36)
--- NOTE | 2018-12-05 12:41 | P.PN ---
Subjective Date of Service: 12/05/18 Primary Care Provider: Dr. Ramos; Cardiology-Dr. Toledo; Surgery-Dr. Mora Chief Complaint: Fever Subjective: Doing well Physical Examination - Vital Signs Temperature: 98.0 F Blood Pressure: 106/54 Pulse: 83 Respirations: 12 Pulse Ox (%): 92 - Physical Exam General: Alert, In no apparent distress, Oriented x3, Cooperative HEENT: Atraumatic Neck: Supple Respiratory: Clear to auscultation bilaterally, Normal air movement Cardiovascular: Normal pulses, Regular rate/rhythm Gastrointestinal: Other (Abdominal wound appears stable. Pain to the abdomen improved, postop changes noted) Musculoskeletal: No tenderness, No warmth Integumentary: Tenderness/swelling (Edema to the lower extremities present but improved) Neurological: Normal speech, Normal strength at 5/5 x4 extr, Normal tone External genitalia: Other (Scrotal edema noted) - Studies Microbiology Data (last 24 hrs): 11/29/18 23:30 Blood - Blood Aerobic Blood Culture - Final No growth in 5 days. 11/29/18 23:30 Blood - Blood Anaerobic Blood Culture - Final No growth in 5 days. 11/29/18 23:45 Blood - Blood Aerobic Blood Culture - Final No growth in 5 days. 11/29/18 23:45 Blood - Blood Anaerobic Blood Culture - Final No growth in 5 days. 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 Continue with IV antibiotic therapy. Patient now on TPN. Case discussed with surgery and nephrology. Patient will get some Lasix today due to 3rd spacing. Will transfer patient to the floor. Will continue with physical therapy. Encourage incentive spirometer. Will continue to monitor hemoglobin and lab. Plan of care discussed with and family. Acute renal failure likely secondary to septic shock: Patient doing well. Stable. Bilateral small pleural effusions with bilateral atelectasis: Continue to monitor closely. Encourage incentive spirometer. COPD: Will continue with medication. Elevated troponin with history of CAD: Case discussed with cardiology yesterday. Overall stable. No need for cardiac intervention. Recent right hemicolectomy for colon cancer: Case discussed his prior surgeon. Continue as above. Will have dietary initiate TPN. GERD: Will continue with medication. 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 Anemia likely of chronic disease with iron and B12 deficiency: Will monitor closely. Elevated liver function with noted tiny hepatic lesions likely compatible with cysts: LFT appears improved. Abdominal ultrasound unremarkable yesterday. Will obtain CT scan to further address. Moderate malnutrition with hypoalbuminemia: Will consult dietary to initiate TPN Anemia postop: Hemoglobin stable. Continue monitor closely. If significantly below 8.0 will consider transfusion. Time Spent Managing Pts Care (In Minutes): 55
[2018-12-05] MEDS: [UNRECOGNIZED DRUG - OTHER] IV SCH ×9 (13:30)
[2018-12-05] MEDS: DEXTROSE 50% IV SCH ×9 (13:30)
[2018-12-05] MEDS: AMINO ACIDS 10% IV SCH ×9 (13:30)
[2018-12-05] MEDS: WATER IV SCH ×9 (13:30)
[2018-12-05] MEDS ORDERED: FUROSEMIDE 40 MG/4 ML VIAL IV ONE (14:37)
[2018-12-05] MEDS ORDERED: FUROSEMIDE 40 MG in NA CHLORIDE 0.9% 46 ML IV ONE (15:00)
[2018-12-05 15:03] LABS: Hematocrit 25.9 % (39.6-49.0)
[2018-12-05] MEDS ORDERED: AA 5%/D20W/ELECTROLYTES-TPN 2,000 ML, Lipids 20% 250 ML with MULTIVITAMINS INJ 10 ML, P... IV SCH ×8 (17:00)
[2018-12-06] MEDS: VANCOMYCIN 1.5 GM in NA CHLORIDE 0.9% 500 ML IVPB SCH (02:53)
[2018-12-06] MEDS: MORPHINE 4 MG/ML SYR IV PRN ×4 (03:11→22:02)
[2018-12-06 04:36] LABS: Absolute Lymphocytes (CBC) 0.6 K/uL (0.7-4.9); Absolute Monocytes 0.8 K/uL (0.1-1.3); Absolute Neutrophil 9.1 K/uL (1.8-8.0); Basophils % 0.2 % (0-1.3); Eosinophils % 2.9 % (0-4.4); Hematocrit 26.4 % (39.6-49.0); Lymphocytes % 5.6 % (15.3-44.8); Monocytes % 7.8 % (3.3-12.3); RBC Red Blood Cell Count 2.71 M/uL (4.33-5.43)
[2018-12-06 04:43] LABS: Albumin 1.5 g/dL (3.4-5.0); Bilirubin Total 1.2 mg/dL (0.2-1.0); Magnesium 2.2 mg/dL (1.8-2.4); Phosphorus 3.9 mg/dL (2.5-4.9); Potassium 3.8 mmol/L (3.5-5.1); Protein, Total 3.8 g/dL (6.4-8.2)
[2018-12-06 05:32] LABS: Platelet Estimate ADEQ
[2018-12-06 05:33] LABS: Blood Morphology Comment NOTED (NOT SEEN); Burr Cells 3+; Target Cells 2+
[2018-12-06] MEDS ORDERED: POTASSIUM CL SA 10 MEQ TAB PO ONE (06:00)
[2018-12-06] MEDS: INSULIN -REGULAR HUMAN 50 UNIT/0.5 ML ML SQ SCH ×4 (06:00→18:00)
[2018-12-06] MEDS: ARFORMOTEROL TARTRATE 15 MCG/2 ML VIAL.NEB NEB SCH ×2 (08:20→20:15)
[2018-12-06] MEDS: Meropenem 1,000 MG in NA CHLORIDE 0.9% 100 ML IV SCH ×2 (09:00→22:01)
[2018-12-06] MEDS: PANTOPRAZOLE 40 MG INJ IVP SCH (09:00)
[2018-12-06] MEDS: ASPIRIN EC 81 MG TAB PO SCH (09:01)
[2018-12-06] MEDS: ENOXAPARIN 30 MG/0.3 ML SQ SCH (09:01)
[2018-12-06] MEDS: THIAMINE 200 MG/2 ML INJ IVP SCH (09:41)
--- NOTE | 2018-12-06 12:20 | P.PN ---
Subjective Date of Service: 12/06/18 Primary Care Provider: Dr. Ramos; Cardiology-Dr. Toledo; Surgery-Dr. Mora Chief Complaint: Fever Subjective: Doing well Physical Examination - Vital Signs Temperature: 97.9 F Blood Pressure: 137/62 Pulse: 89 Respirations: 18 Pulse Ox (%): 95 - Physical Exam General: Alert, In no apparent distress, Oriented x3, Cooperative HEENT: Atraumatic Neck: Supple Respiratory: Clear to auscultation bilaterally, Normal air movement Cardiovascular: Normal pulses, Regular rate/rhythm Gastrointestinal: Normal bowel sounds, Soft and benign, Non-distended, No masses , No rebound, No guarding Musculoskeletal: No erythema, No tenderness, No warmth Integumentary: No erythema, No warmth, No cyanosis Neurological: Normal speech, Normal strength at 5/5 x4 extr, Normal tone, Normal affect - Studies Medications List Reviewed: Yes Assessment & Plan Discharge Plan: Other (Skilled placement) Plan to discharge in: Greater than 2 days Physician Review Additional Text: Impression: Septic shock secondary to peritonitis with intra-abdominal abscess and anastomotic breakdown status post 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, postop day 4 Acute renal failure likely related to septic shock Bilateral small pleural effusions with bilateral atelectasis COPD Elevated troponin with history of CAD Recent right hemicolectomy with small amount of ascites GERD 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 Continue with IV antibiotic therapy. Patient now on TPN. Case discussed with surgery and nephrology. Patient on Lasix due to edema transition to the floor. Will continue physical therapy. Encourage incentive spirometer. Advanced diet per surgery. Anticipate skilled placement next week. Will discuss with team of physicians on when to adjust antibiotic therapy. Acute renal failure likely secondary to septic shock: Patient doing well. Lab continues to improve. Bilateral small pleural effusions with bilateral atelectasis: Continue to monitor closely. Encourage incentive spirometer. COPD: Will continue with medication. Elevated troponin with history of CAD: Case discussed with cardiology yesterday. Overall stable. No need for cardiac intervention. Recent right hemicolectomy for colon cancer: Case discussed his prior surgeon. Continue as above. Will have dietary initiate TPN. GERD: Will continue with medication. 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 Anemia likely of chronic disease with iron and B12 deficiency: Will monitor closely. Elevated liver function with noted tiny hepatic lesions likely compatible with cysts: LFT appears improved. Abdominal ultrasound unremarkable. Will obtain CT scan to further address. Moderate malnutrition with hypoalbuminemia: Will consult dietary to initiate TPN. Nephrology adjusting TPN Anemia postop: Hemoglobin stable. Continue monitor closely. If significantly below 8.0 will consider transfusion. Time Spent Managing Pts Care (In Minutes): 55
[2018-12-06] MEDS: WATER IV SCH ×9 (13:51)
[2018-12-06] MEDS: AMINO ACIDS 10% IV SCH ×9 (13:51)
[2018-12-06] MEDS: DEXTROSE 50% IV SCH ×9 (13:51)
[2018-12-06] MEDS: [UNRECOGNIZED DRUG - OTHER] IV SCH ×9 (13:51)
--- NOTE | 2018-12-06 20:38 | P.PN ---
Subjective Date of Service: 12/06/18 Primary Care Provider: Dr. Ramos; Cardiology-Dr. Toledo; Surgery-Dr. Mora Chief Complaint: Fever Subjective: Improving feels better LE edema +1 Na 149, Cr down to 2.0 started on po diet , encouraged to increase fluid intake on merrem and vanco , monitor vanco level Physical Examination - Vital Signs Temperature: 98.1 F Blood Pressure: 121/56 Pulse: 108 Respirations: 19 Pulse Ox (%): 96 - Physical Exam General: Oriented x3, Mild distress HEENT: Atraumatic Neck: Supple, Without JVD or thyroid abnormality Respiratory: Clear to auscultation bilaterally, Normal air movement Cardiovascular: Regular rate/rhythm, Normal S1 S2, Edema Gastrointestinal: Normal bowel sounds - Studies Medications List Reviewed: Yes Assessment And Plan - Current Problems (Diagnosis) (1) Anemia Onset Date: 12/02/18 Current Visit: Yes Status: Acute (2) Total bilirubin, elevated Onset Date: 12/02/18 Current Visit: Yes Status: Acute - Plan Acute kidney injury Eranley due to contrast induced nephropathy +/- poor perfusion, Improving cont TPN encourage pO intake renal dose all meds Hypernatremia encourage Po fluid intake if Na keep trending up might increase fluid content and reduce TPN rate sepsis due to peritonitis. S/p surgical intervention renal dose meds on merrem and vanco , monitor vanco level Edmea cont lasix
[2018-12-07 05:21] LABS: Albumin 1.4 g/dL (3.4-5.0); Phosphorus 3.9 mg/dL (2.5-4.9)
[2018-12-07] MEDS: INSULIN -REGULAR HUMAN 50 UNIT/0.5 ML ML SQ SCH ×5 (06:00→21:00)
[2018-12-07] MEDS: ARFORMOTEROL TARTRATE 15 MCG/2 ML VIAL.NEB NEB SCH ×2 (07:52→19:59)
[2018-12-07] MEDS: Meropenem 1,000 MG in NA CHLORIDE 0.9% 100 ML IV SCH ×2 (09:00→22:06)
[2018-12-07] MEDS: ASPIRIN EC 81 MG TAB PO SCH (09:29)
[2018-12-07] MEDS: PANTOPRAZOLE 40 MG INJ IVP SCH (09:30)
[2018-12-07] MEDS: ENOXAPARIN 30 MG/0.3 ML SQ SCH (09:30)
[2018-12-07] MEDS: THIAMINE 200 MG/2 ML INJ IVP SCH (09:31)
--- NOTE | 2018-12-07 10:43 | P.PN ---
Subjective Date of Service: 12/07/18 Primary Care Provider: Dr. Ramos; Cardiology-Dr. Toledo; Surgery-Dr. Mora Chief Complaint: Fever Subjective: Other (Patient doing well. Patient ambulating. Patient remains afebrile. Pain under control.) Physical Examination - Vital Signs Temperature: 97.1 F Blood Pressure: 113/71 Pulse: 114 Respirations: 20 Pulse Ox (%): 96 - Physical Exam General: Alert, In no apparent distress, Oriented x3, Cooperative HEENT: Atraumatic Neck: Supple Respiratory: Clear to auscultation bilaterally, Normal air movement Cardiovascular: Normal pulses, Regular rate/rhythm Gastrointestinal: Normal bowel sounds, Soft and benign, Non-distended, Other ( Postop changes noted. Ostomy evaluated. 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, postop day 5 Acute renal failure likely related to septic shock Bilateral small pleural effusions with bilateral atelectasis COPD Elevated troponin with history of CAD Recent right hemicolectomy with small amount of ascites GERD 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 Continue with IV antibiotic therapy and TPN. Will have surgery evaluate ostomy. Continue physical therapy. Will discuss case further with surgery and nephrology. Once patient taking good oral intake will discontinue TPN. Anticipate skilled placement transfer next week. Will discuss with surgery on when to adjust antibiotic therapy. So far cultures negative. Acute renal failure likely secondary to septic shock: Patient doing well. Lab continues to improve. Bilateral small pleural effusions with bilateral atelectasis: Continue to monitor closely. Encourage incentive spirometer. COPD: Will continue with medication. Elevated troponin with history of CAD: Case discussed with cardiology yesterday. Overall stable. No need for cardiac intervention. Recent right hemicolectomy for colon cancer: Case discussed his prior surgeon. Continue as above. Will have dietary initiate TPN. GERD: Will continue with medication. 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 Anemia likely of chronic disease with iron and B12 deficiency: Will monitor closely. Elevated liver function with noted tiny hepatic lesions likely compatible with cysts: LFT appears improved. Abdominal ultrasound unremarkable. Will obtain CT scan to further address. Moderate malnutrition with hypoalbuminemia: Continue TPN. Once able to take good oral intake will discontinue TPN. Anemia postop: Hemoglobin stable. Continue monitor closely. If significantly below 8.0 will consider transfusion. Time Spent Managing Pts Care (In Minutes): 55
--- NOTE | 2018-12-07 11:04 | P.PN ---
Subjective Date of Service: 12/07/18 Primary Care Provider: Dr. Ramos; Cardiology-Dr. Toledo; Surgery-Dr. Mora Chief Complaint: COPD Subjective: Improving (Patient is doing much better he has a history of COPD denies any pulmonary complaints compliant with his inhalers at home is a nebulizer eating and drinking) Review of Systems General: Weakness Physical Examination - Vital Signs Temperature: 97.1 F Blood Pressure: 113/71 Pulse: 114 Respirations: 20 Pulse Ox (%): 96 - Physical Exam General: Alert, Oriented x3 Respiratory: Clear to auscultation bilaterally Cardiovascular: No edema, Regular rate/rhythm - Studies Medications List Reviewed: Yes Assessment & Plan - Problems (Diagnosis) (1) Respiratory failure Current Visit: Yes Status: Resolved Plan: Patient is 78 years of age recently underwent a revision of his anastomotic breakdown with an abscess stooling well little hypotensive the continue with fluid boluses labs reviewed renal function is a little worse probably all prerenal white count is elevated plan to wean off the ventilator chest x-ray shows diminished lung volumes postsurgical add vancomycin for now cover enterococcal infections patient has COPD I have added Brovana Qualifiers: Chronicity: acute (2) COPD (chronic obstructive pulmonary disease) Current Visit: Yes Status: Acute Plan: Patient has a history of COPD continue with bronchodilators and albuterol and ipratropium on a p.r.n. 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 Continue with IV antibiotic therapy and TPN. Will have surgery evaluate ostomy. Continue physical therapy. Will discuss case further with surgery and nephrology. Once patient taking good oral intake will discontinue TPN. Anticipate skilled placement transfer next week. Will discuss with surgery on when to adjust antibiotic therapy. So far cultures negative. Acute renal failure likely secondary to septic shock: Patient doing well. Lab continues to improve. Bilateral small pleural effusions with bilateral atelectasis: Continue to monitor closely. Encourage incentive spirometer. COPD: Will continue with medication. Elevated troponin with history of CAD: Case discussed with cardiology yesterday. Overall stable. No need for cardiac intervention. Recent right hemicolectomy for colon cancer: Case discussed his prior surgeon. Continue as above. Will have dietary initiate TPN. GERD: Will continue with medication. 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 Anemia likely of chronic disease with iron and B12 deficiency: Will monitor closely. Elevated liver function with noted tiny hepatic lesions likely compatible with cysts: LFT appears improved. Abdominal ultrasound unremarkable. Will obtain CT scan to further address. Moderate malnutrition with hypoalbuminemia: Continue TPN. Once able to take good oral intake will discontinue TPN. Anemia postop: Hemoglobin stable. Continue monitor closely. If significantly below 8.0 will consider transfusion.
[2018-12-07 11:31] LABS: Absolute Lymphocytes (CBC) 0.5 K/uL (0.7-4.9); Absolute Neutrophil 8.4 K/uL (1.8-8.0); Basophils % 0.3 % (0-1.3); Eosinophils % 2.9 % (0-4.4); Hematocrit 25.5 % (39.6-49.0); Lymphocytes % 4.8 % (15.3-44.8); MPV 9.4 fL (7.6-11.3); Monocytes % 9.6 % (3.3-12.3); RBC Red Blood Cell Count 2.62 M/uL (4.33-5.43)
[2018-12-07] MEDS: WATER IV SCH ×9 (13:00)
[2018-12-07] MEDS: [UNRECOGNIZED DRUG - OTHER] IV SCH ×9 (13:00)
[2018-12-07] MEDS: DEXTROSE 50% IV SCH ×9 (13:00)
[2018-12-07] MEDS: AMINO ACIDS 10% IV SCH ×9 (13:00)
[2018-12-07] MEDS: MORPHINE 4 MG/ML SYR IV PRN ×2 (13:13→22:24)
--- NOTE | 2018-12-07 13:36 | P.PN ---
Subjective Date of Service: 12/07/18 Primary Care Provider: Dr. Ramos; Cardiology-Dr. Toledo; Surgery-Dr. Mora Chief Complaint: COPD Subjective: Improving feels better LE edema +1 Na 147, Cr down to 1.6 will reduce TPN rate to 50ml/hr and dc by tomorrow if cont to tolerate po diet corrected ca WNl on merrem and vanco , monitor vanco level still have edema, off lasix now, will cont to monitor and start on PO Dily wt I/O Physical Examination - Vital Signs Temperature: 98.2 F Blood Pressure: 116/67 Pulse: 114 Respirations: 20 Pulse Ox (%): 98 - Physical Exam General: Oriented x3 Neck: Supple, Without JVD or thyroid abnormality Respiratory: Clear to auscultation bilaterally, Normal air movement Cardiovascular: No edema, Regular rate/rhythm, Normal S1 S2 Gastrointestinal: Normal bowel sounds, Soft and benign - Studies Medications List Reviewed: Yes Assessment And Plan - Current Problems (Diagnosis) (1) Anemia Onset Date: 12/02/18 Current Visit: Yes Status: Acute (2) Total bilirubin, elevated Onset Date: 12/02/18 Current Visit: Yes Status: Acute - Plan Acute kidney injury Likely due to contrast induced nephropathy +/- poor perfusion, Improving will reduce TPn rate and Dc tomorrow if tolerate po diet encourage pO intake renal dose all meds Hypernatremia improving encourage Po fluid intake if Na keep trending up might increase fluid content and reduce TPN rate sepsis due to peritonitis. S/p surgical intervention renal dose meds on merrem and vanco , monitor vanco level Edmea improving lasix on hold will restart po
--- NOTE | 2018-12-07 18:15 | P.PN ---
Date of Service: 12/07/18 S: The patient has no specific complaints today. Just some minor incisional soreness. Since he has exhausted and hungry O: Vital signs are stable, ileostomy has some slough also some blood out through the stoma and (looks old) I believe vehicle ostomy however still viable. On digitalize a arechiga, good internal attachment, the mucosa appears pink at the level of the skin. A: Surgically stable P: A advance his diet
[2018-12-08 05:34] LABS: Absolute Lymphocytes (CBC) 0.6 K/uL (0.7-4.9); Absolute Monocytes 0.9 K/uL (0.1-1.3); Absolute Neutrophil 7.3 K/uL (1.8-8.0); Basophils % 0.7 % (0-1.3); Hematocrit 24.5 % (39.6-49.0); MPV 9.6 fL (7.6-11.3); Monocytes % 10.3 % (3.3-12.3); RBC Red Blood Cell Count 2.52 M/uL (4.33-5.43)
[2018-12-08 06:01] LABS: Albumin 1.3 g/dL (3.4-5.0); Bilirubin Total 1.4 mg/dL (0.2-1.0); Magnesium 2.2 mg/dL (1.8-2.4); Phosphorus 3.6 mg/dL (2.5-4.9); Protein, Total 3.7 g/dL (6.4-8.2)
[2018-12-08] MEDS: INSULIN -REGULAR HUMAN 50 UNIT/0.5 ML ML SQ SCH ×4 (07:30→21:00)
[2018-12-08] MEDS: ARFORMOTEROL TARTRATE 15 MCG/2 ML VIAL.NEB NEB SCH ×2 (07:39→19:55)
[2018-12-08] MEDS: Meropenem 1,000 MG in NA CHLORIDE 0.9% 100 ML IV SCH ×2 (09:00→22:24)
[2018-12-08] MEDS: ENOXAPARIN 30 MG/0.3 ML SQ SCH (09:17)
[2018-12-08] MEDS: ASPIRIN EC 81 MG TAB PO SCH (09:18)
[2018-12-08] MEDS: PANTOPRAZOLE 40 MG INJ IVP SCH (09:18)
[2018-12-08] MEDS ORDERED: HYDROCODONE/APAP 7.5/325 MG TAB PO PRN (11:37)
--- NOTE | 2018-12-08 11:41 | P.PN ---
Subjective Date of Service: 12/08/18 Primary Care Provider: Dr. Ramos; Cardiology-Dr. Toledo; Surgery-Dr. Mora Chief Complaint: COPD Subjective: Other (Patient continues to do well.) Physical Examination - Vital Signs Temperature: 97.7 F Blood Pressure: 135/64 Pulse: 101 Respirations: 18 Pulse Ox (%): 96 - Physical Exam General: Alert, In no apparent distress, Oriented x3, Cooperative HEENT: Atraumatic Neck: Supple Respiratory: Clear to auscultation bilaterally, Normal air movement Cardiovascular: Normal pulses, Regular rate/rhythm Gastrointestinal: Normal bowel sounds, Soft and benign, Non-distended, Other ( Postop changes noted. 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, postop day 6 Acute renal failure likely related to septic shock Bilateral small pleural effusions with bilateral atelectasis COPD Elevated troponin with history of CAD Recent right hemicolectomy with small amount of ascites GERD 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 Continue with IV meropenem. Vancomycin discontinue yesterday. Continue with TPN. Once patient is eating more than 50% of his meal then can discontinue of TPN. Continue with physical therapy. Social work working on longterm placement. This can likely occur as early as tomorrow or the next day. Will discuss case further with surgery and nephrology. I will turn the service over to Dr. Mckeon tomorrow. I will go over the plan of care with her. Acute renal failure likely secondary to septic shock: Patient doing well. Lab continues to improve. The patient appears at baseline. Bilateral small pleural effusions with bilateral atelectasis: Continue to monitor closely. Encourage incentive spirometer. COPD: Will continue with medication. Elevated troponin with history of CAD: Case discussed with cardiology yesterday. Overall stable. No need for cardiac intervention. Recent right hemicolectomy for colon cancer: Case discussed his prior surgeon. Continue as above. Dc TPN once patient is taking more than 50% of his oral meals. GERD: Will continue with medication. 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 Anemia likely of chronic disease with iron and B12 deficiency: Will monitor closely. Elevated liver function with noted tiny hepatic lesions likely compatible with cysts: LFT appears improved. Abdominal ultrasound unremarkable. Moderate malnutrition with hypoalbuminemia: Continue TPN but discontinue once taking more than 50% of his oral meals. Anemia postop: Hemoglobin stable. Continue monitor closely. If significantly below 8.0 will consider transfusion. Time Spent Managing Pts Care (In Minutes): 55
[2018-12-08] MEDS: MORPHINE 4 MG/ML SYR IV PRN ×2 (12:25→18:41)
[2018-12-08] MEDS: DEXTROSE 50% IV SCH ×9 (13:00)
[2018-12-08] MEDS: WATER IV SCH ×9 (13:00)
[2018-12-08] MEDS: [UNRECOGNIZED DRUG - OTHER] IV SCH ×9 (13:00)
[2018-12-08] MEDS: AMINO ACIDS 10% IV SCH ×9 (13:00)
--- NOTE | 2018-12-08 18:02 | P.PN ---
Subjective Date of Service: 12/10/18 Primary Care Provider: Dr. Ramos; Cardiology-Dr. Toledo; Surgery-Dr. Mora Chief Complaint: COPD Subjective: Improving feels better LE edema +1, will resume lasix Na 147, Cont TPN and current rate, still with Poor PO intake will dc TPN when po intake improves corrected ca WNl on merrem and vanco , monitor vanco level Dily wt I/O Physical Examination - Vital Signs Temperature: 98.5 F Blood Pressure: 109/59 Pulse: 101 Respirations: 18 Pulse Ox (%): 99 - Physical Exam General: Alert, In no apparent distress, Oriented x3 HEENT: Atraumatic Neck: Supple, Without JVD or thyroid abnormality Respiratory: Clear to auscultation bilaterally, Normal air movement Cardiovascular: Regular rate/rhythm, Normal S1 S2, Edema Gastrointestinal: Normal bowel sounds - Studies Medications List Reviewed: Yes Assessment And Plan - Current Problems (Diagnosis) (1) Anemia Onset Date: 12/02/18 Current Visit: Yes Status: Acute (2) Total bilirubin, elevated Onset Date: 12/02/18 Current Visit: Yes Status: Acute - Plan Acute kidney injury Likely due to contrast induced nephropathy +/- poor perfusion, Improving Cont TPN for now encourage pO intake renal dose all meds Hypernatremia improving encourage Po fluid intake sepsis due to peritonitis. S/p surgical intervention renal dose meds on merrem and vanco , monitor vanco level Edmea improving Cont lasix
[2018-12-08] MEDS: FUROSEMIDE 40 MG/4 ML VIAL IV SCH (18:43)
--- NOTE | 2018-12-08 19:18 | P.PN ---
Date of Service: 12/08/18 S: The patient is is in better spirits today. Has managed to eating dinner. Has minimal pain. Complaining of some swelling in his genital area O: Vital signs remain stable, ostomy is putting out. Still has high drainage from a RHYS drain, mostly serosanguineous fluid. Moderate scrotal edema. A: The stoma itself appears to have some venous congestion on I can see mucosa that is intact inside. We will allow this to demarcate itself. In the interim time. Will trying to increase is term protein. Tomorrow I will Dc the RHYS drain. Encourage p.o. intake. Ambulate. P: Mobilize patient, will contact social media developer for ongoing care as outpatient.
[2018-12-09 05:30] LABS: Absolute Lymphocytes (CBC) 0.6 K/uL (0.7-4.9); Absolute Monocytes 0.9 K/uL (0.1-1.3); Absolute Neutrophil 7.9 K/uL (1.8-8.0); Basophils % 0.6 % (0-1.3); Eosinophils % 2.1 % (0-4.4); Hematocrit 25.9 % (39.6-49.0); Lymphocytes % 5.8 % (15.3-44.8); MPV 9.5 fL (7.6-11.3)
[2018-12-09 05:32] LABS: Albumin 1.5 g/dL (3.4-5.0); Bilirubin Total 1.8 mg/dL (0.2-1.0); Potassium 4.4 mmol/L (3.5-5.1); Protein, Total 4.1 g/dL (6.4-8.2)
[2018-12-09] MEDS: INSULIN -REGULAR HUMAN 50 UNIT/0.5 ML ML SQ SCH ×4 (07:30→21:00)
[2018-12-09] MEDS: ARFORMOTEROL TARTRATE 15 MCG/2 ML VIAL.NEB NEB SCH ×2 (08:27→20:00)
[2018-12-09] MEDS: Meropenem 1,000 MG in NA CHLORIDE 0.9% 100 ML IV SCH ×2 (09:33→17:00)
[2018-12-09] MEDS: FUROSEMIDE 40 MG/4 ML VIAL IV SCH (09:33)
[2018-12-09] MEDS: ASPIRIN EC 81 MG TAB PO SCH (09:33)
[2018-12-09] MEDS: PANTOPRAZOLE 40MG TABLET PO SCH (09:33)
[2018-12-09] MEDS: ENOXAPARIN 30 MG/0.3 ML SQ SCH (09:33)
--- NOTE | 2018-12-09 13:03 | P.PN ---
Date of Service: 12/09/18 S: Patient states he feels somewhat bloated today just exhausted. Hungry asking for food. O : Good output from ileostomy. Had a lot ulcers fluid coming from pelvic drain. I have discontinued this as I feel it is mostly 3rd spacing and ascitic loss due to his low serum albumin and protein levels. A: Continues to progress P: Regular diet as tolerated. Family may bring in free from the outside.
--- NOTE | 2018-12-09 16:47 | P.PN ---
Subjective Date of Service: 12/09/18 Primary Care Provider: Dr. Ramos; Cardiology-Dr. Toledo; Surgery-Dr. Mora Chief Complaint: COPD Patient seen and examined at bedside with RN. Chart reviewed. Case discussed with general surgery. No complaints to offer overnight. Review of Systems 10-point ROS is otherwise unremarkable Physical Examination - Vital Signs Temperature: 98.3 F Blood Pressure: 101/62 Pulse: 112 Respirations: 18 Pulse Ox (%): 97 - Physical Exam General: Alert, In no apparent distress HEENT: Atraumatic, PERRLA, EOMI Neck: Supple, JVD not distended Respiratory: Clear to auscultation bilaterally, Normal air movement Cardiovascular: Regular rate/rhythm, Normal S1 S2 Gastrointestinal: Normal bowel sounds, No tenderness Musculoskeletal: No tenderness Integumentary: No rashes Neurological: Normal speech, Normal tone, Normal affect Lymphatics: No axilla or inguinal lymphadenopathy - Studies Medications List Reviewed: Yes Assessment And Plan Discharge Plan: Longterm Plan to discharge in: 48 Hours - Code Status/Comfort Care Code Status Assessed: Yes Physician Review Additional Text: Plan: Septic shock -Now Resolved -most likely negative secondary to peritonitis with intra-abdominal abscess. -curly on IV meropenem will continue that here in the hospital Peritonitis with intra-abdominal abscess and anastomotic breakdown -status post 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, postop day 7 -general surgery consulted. Appreciated recommendations at this time -continue with IV meropenem -on regular diet at this time able to only take 20-30% of his diet Acute renal failure likely secondary to septic shock: -Patient doing well. Lab continues to improve. The patient appears at baseline. Bilateral small pleural effusions with bilateral atelectasis: -Continue to monitor closely. -Encourage incentive spirometer. -PT consulted to get patient ambulate COPD: -Will continue with medication. Elevated troponin with history of CAD: -Case discussed with cardiology yesterday. Overall stable. No need for cardiac intervention. Recent right hemicolectomy for colon cancer: -Case discussed his prior surgeon. Continue as above. -DC TPN today GERD: -Will continue with medication. 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 Anemia likely of chronic disease with iron and B12 deficiency: -Will monitor closely. Elevated liver function with noted tiny hepatic lesions likely compatible with cysts: - LFT appears improved. Abdominal ultrasound unremarkable. Moderate malnutrition with hypoalbuminemia: -continue with albumin infusion needed Anemia postop: -Hemoglobin stable. Continue monitor closely. If significantly below 8.0 will consider transfusion. Disposition: Pending placement at this time Critical Care: No
--- NOTE | 2018-12-09 21:51 | PN ---
Date of Progress Note: 12/09/2018 Subjective: The patient is lying in bed. Denies any headache, nausea, vomiting, chest pain, abdomin al pain, constipation, or diarrhea. No fevers. Objective: Vital signs: Temperature 98.3, pulse 112, respiration 18, blood pressure 101/62. Lungs: Basal crackles. Heart: S1, S2. Regular. Abdomen: Bowel sounds present. Tenderness in the right lower quadrant noted. Laboratory Data: WBC 9.6, hemoglobin 8.8, platelets are 187. Chemistry shows; sodium 146, potassium 4.4, chloride 118, bicarb 22, BUN 49, creatinine 1, glucose is 84. Medications: Include meropenem. See MARS for other medications. Assessment And Plan: 1.A 78-year-old male, status post septic shock secondary to peritonitis and abdominal abscess, statu s post ileocolonic anastomosis with ileostomy. 2.Chronic obstructive pulmonary disease, doing somewhat better. 3.No new acute events over the weekend. The patient is currently on broad-spectrum antibiotic. 4.Continue supportive care. Consider getting followup with surgical team. NF/MODL Voice ID: [id number] Report ID: [id number]
[2018-12-10] MEDS: TRAMADOL HCL 50 MG TAB PO PRN ×2 (00:48→23:35)
[2018-12-10] MEDS: Meropenem 1,000 MG in NA CHLORIDE 0.9% 100 ML IV SCH ×3 (00:48→17:48)
--- NOTE | 2018-12-10 03:43 | PN ---
Date of Progress Note: 12/09/2018 Chief Complaint: Acute kidney injury, nonoliguric, secondary to septic shock, complicated by periton itis with intraabdominal abscess. History Of Present Illness: The patient is on broad-spectrum antibiotics and has been treated with I V meropenem and vancomycin. Vancomycin was currently discontinued. The patient is on TPN. Renal function has stabilized and improved. Creatinine was up to 2.51 and gradually improved to 1.09 . Electrolytes as follows: Sodium 146, potassium 4.4, chloride 118, CO2 of 22, BUN 49, creatinine 1 .09, and glucose 84. Review of Systems: Denies PND or orthopnea. Physical Examination: Lungs: Clear to auscultation bilaterally. Heart: S1 and S2. Abdomen: Soft and benign. Extremities: Minimal edema. Impression And Plan: 1.[id number] kidney injury. Renal function is improving. Mild hypernatremia. Continue total parenteral nutrition. 2.Sepsis. Continue antibiotics. The patient was on vancomycin. Monitor vancomycin level. Adjust antibiotics to renal function. 3.Septic shock, resolved. The patient is hemodynamically stable. Acute kidney injury is gradually improving. The patient is doing better. Avoid nephrotoxic medication. The patient was found to hav e elevated troponin. Cardiology workup was done. 4.Hypoalbuminemia, moderate malnutrition. Continue total parenteral nutrition and plan p.o. intake when the patient is cleared by Surgical Team. YAZMIN/MODL Voice ID: [id number] Report ID: [id number]
[2018-12-10 04:59] LABS: Absolute Lymphocytes (CBC) 0.9 K/uL (0.7-4.9); Absolute Neutrophil 6.8 K/uL (1.8-8.0); Eosinophils % 3.5 % (0-4.4); Lymphocytes % 9.7 % (15.3-44.8); MPV 9.3 fL (7.6-11.3); Monocytes % 10.6 % (3.3-12.3); RBC Red Blood Cell Count 2.56 M/uL (4.33-5.43)
[2018-12-10 05:18] LABS: Albumin 1.5 g/dL (3.4-5.0); Bilirubin Total 1.4 mg/dL (0.2-1.0); Potassium 4.1 mmol/L (3.5-5.1); Protein, Total 4.2 g/dL (6.4-8.2)
[2018-12-10 06:27] LABS: Anisocytosis SLIGHT; Blood Morphology Comment NOTED (NOT SEEN); Ovalocytes 1+; Platelet Estimate ADEQ
[2018-12-10] MEDS: INSULIN -REGULAR HUMAN 50 UNIT/0.5 ML ML SQ SCH ×4 (07:30→21:00)
[2018-12-10] MEDS: ENOXAPARIN 40 MG/0.4 ML SQ SCH (11:00)
[2018-12-10] MEDS: FUROSEMIDE 40 MG/4 ML VIAL IV SCH (11:00)
[2018-12-10] MEDS: PANTOPRAZOLE 40MG TABLET PO SCH (11:00)
[2018-12-10] MEDS: ASPIRIN EC 81 MG TAB PO SCH (11:00)
--- NOTE | 2018-12-10 13:07 | P.PN ---
Date of Service: 12/10/18 S: The still states that he has absolutely wore out. Says he even gets tired when he eats. O: Awake alert vitals are stable, interactive, incisions are clean, high output from the with a RHYS drain was removed yesterday with ascitic fluid A : Surgically stable P: Patient doing well, but has radial energy to mobilize himself. His hemoglobin is persistently low at 8.8. I feel he would strongly benefit from some bled. I will talk to the hospital since see if she concurs. This is his 2nd operation within 3 weeks and he is symptomatic I believe not only from the surgery but from his anemia.
[2018-12-10] MEDS: ARFORMOTEROL TARTRATE 15 MCG/2 ML VIAL.NEB NEB SCH ×2 (13:48→20:10)
--- NOTE | 2018-12-10 14:42 | P.PN ---
Subjective Date of Service: 12/10/18 Primary Care Provider: Dr. Ramos; Cardiology-Dr. Toledo; Surgery-Dr. Mora Chief Complaint: COPD Patient seen and examined at bedside with RN. Chart reviewed. Case discussed with general surgery. No complaints to offer overnight. Currently Awaiting Placement at the SNF. Review of Systems 10-point ROS is otherwise unremarkable Physical Examination - Vital Signs Temperature: 97.3 F Blood Pressure: 136/67 Pulse: 106 Respirations: 18 Pulse Ox (%): 98 - Physical Exam General: Alert, In no apparent distress HEENT: Atraumatic, PERRLA, EOMI Neck: Supple, JVD not distended Respiratory: Clear to auscultation bilaterally, Normal air movement Cardiovascular: Regular rate/rhythm, Normal S1 S2 Gastrointestinal: Normal bowel sounds, No tenderness Musculoskeletal: No tenderness Integumentary: No rashes Neurological: Normal speech, Normal tone, Normal affect Lymphatics: No axilla or inguinal lymphadenopathy - Studies Medications List Reviewed: Yes Assessment And Plan Discharge Plan: Home Plan to discharge in: 48 Hours - Code Status/Comfort Care Code Status Assessed: Yes Physician Review Additional Text: Plan: Septic shock -Now Resolved -most likely secondary to peritonitis with intra-abdominal abscess. -On IV meropenum Peritonitis with intra-abdominal abscess and anastomotic breakdown -status post 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, postop day 8 -general surgery consulted. Appreciated recommendations at this time -continue with IV meropenem for now and f.u with Surgery on Switching to PO option -on regular diet at this time able to only take 20-30% of his diet Acute renal failure likely secondary to septic shock: -Now Resolved. BUN.CR at baseline now Bilateral small pleural effusions with bilateral atelectasis: -Continue to monitor closely. -Encourage incentive spirometer. -PT consulted to get patient ambulate COPD: -Duonebs and oxygen Elevated troponin with history of CAD: -Case discussed with cardiology yesterday. Overall stable. No need for cardiac intervention. Recent right hemicolectomy for colon cancer: -Case discussed with his prior surgeon by Dr Carroll. -Continue as above per surgeon Reccs GERD: -Will continue with medication. 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 Anemia likely of chronic disease with iron and B12 deficiency: -Will monitor closely. Elevated liver function with noted tiny hepatic lesions likely compatible with cysts: -LFT appears improved. Abdominal ultrasound unremarkable. Moderate malnutrition with hypoalbuminemia: -continue with albumin infusion as needed Anemia postop: -Hemoglobin stable. Continue monitor closely. If significantly below 8.0 will consider transfusion. Disposition: Pending placement at this time Critical Care: No
[2018-12-11] MEDS: Meropenem 1,000 MG in NA CHLORIDE 0.9% 100 ML IV SCH ×2 (00:30→09:02)
--- NOTE | 2018-12-11 02:20 | PN ---
Date of Progress Note: 12/10/2018 Subjective: The patient was admitted with acute kidney injury, CHF exacerbation, COPD exacerbation. Had acute kidney injury secondary to the contrast and poor perfusion ATN. In the beginning, was kenneth perez. We converted him to nonoliguric with diuresis. The patient responded very well. Physical Examination: General: When I saw the patient, the patient was lying in bed, comfortable. Vital Signs: Blood pressure 106/50, pulse of 100, afebrile. Chest: Faint crackles in the base. Heart: S1 and S2, regular. Abdomen: Soft and nontender. Extremities: Plus edema. Laboratory Data: WBC 9, H and H 8.3/25, and platelets 195. Sodium 146, potassium 4.1, bicarb 24, BU N 44, and creatinine 1.1. The patient had good urine output of 1500, negative of 500. Medications: Medication has been reviewed. Assessment And Plan: 1.Acute kidney injury secondary to cardiorenal, nonoliguric, still on the wet side. I am going to c ontinue current diuresis. 2.Hypertension, controlled, optimal. We will utilize blood pressure for more diuresis. 3.Hypokalemia has been resolved. 4.Acidosis has been resolved. YUE/NAILA Voice ID: [id number] Report ID: [id number]
[2018-12-11] MEDS: INSULIN -REGULAR HUMAN 50 UNIT/0.5 ML ML SQ SCH ×4 (07:30→21:00)
[2018-12-11] MEDS: ARFORMOTEROL TARTRATE 15 MCG/2 ML VIAL.NEB NEB SCH ×2 (08:36→20:07)
[2018-12-11] MEDS: FUROSEMIDE 40 MG/4 ML VIAL IV SCH (09:03)
[2018-12-11] MEDS: ASPIRIN EC 81 MG TAB PO SCH (09:03)
[2018-12-11] MEDS: PANTOPRAZOLE 40MG TABLET PO SCH (09:03)
[2018-12-11] MEDS: ENOXAPARIN 40 MG/0.4 ML SQ SCH (09:03)
[2018-12-11] MEDS: TRAMADOL HCL 50 MG TAB PO PRN ×2 (09:12→22:56)
--- NOTE | 2018-12-11 14:06 | P.PN ---
Date of Service: 12/11/18 S: Clinically appears much better today, sitting up, doing his partial Mrs.. Relatively pain-free. Trying to eat his meals as best he can. Status eat still less than have much energy. O: Ileostomy is working well. Appears viable. A: Surgically stable P: O waiting for discharge to snf.
--- NOTE | 2018-12-11 15:37 | P.PN ---
Subjective Date of Service: 12/11/18 Primary Care Provider: Dr. Ramos; Cardiology-Dr. Toledo; Surgery-Dr. Mora Chief Complaint: COPD Patient seen and examined at bedside with RN. Chart reviewed. Case discussed with general surgery. No complaints to offer overnight. Currently Awaiting Placement at the SNF. Review of Systems 10-point ROS is otherwise unremarkable Physical Examination - Vital Signs Temperature: 98.8 F Blood Pressure: 104/61 Pulse: 110 Respirations: 18 Pulse Ox (%): 97 - Physical Exam General: Alert, In no apparent distress HEENT: Atraumatic, PERRLA, EOMI Neck: Supple, JVD not distended Respiratory: Clear to auscultation bilaterally, Normal air movement Cardiovascular: Regular rate/rhythm, Normal S1 S2 Gastrointestinal: Normal bowel sounds, No tenderness Musculoskeletal: No tenderness Integumentary: No rashes Neurological: Normal speech, Normal tone, Normal affect Lymphatics: No axilla or inguinal lymphadenopathy - Studies Medications List Reviewed: Yes Assessment And Plan Discharge Plan: Senior Living Plan to discharge in: 48 Hours - Code Status/Comfort Care Code Status Assessed: Yes Physician Review Additional Text: Plan: Septic shock -Now Resolved -most likely secondary to peritonitis with intra-abdominal abscess. -Finished IV abx for Infection Peritonitis with intra-abdominal abscess and anastomotic breakdown -status post 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, postop day 9 -general surgery consulted. Appreciated recommendations at this time -on regular diet at this time able to only take 20-30% of his diet Acute renal failure likely secondary to septic shock: -Now Resolved. BUN.CR at baseline now Bilateral small pleural effusions with bilateral atelectasis: -Continue to monitor closely. -Encourage incentive spirometer. -PT consulted to get patient ambulate COPD: -Duonebs and oxygen Elevated troponin with history of CAD: -Case discussed with cardiology yesterday. Overall stable. No need for cardiac intervention. Recent right hemicolectomy for colon cancer: -Case discussed with his prior surgeon by Dr Carroll. -Continue as above per surgeon Reccs GERD: -Will continue with medication. 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 Anemia likely of chronic disease with iron and B12 deficiency: -Will monitor closely. Elevated liver function with noted tiny hepatic lesions likely compatible with cysts: -LFT appears improved. Abdominal ultrasound unremarkable. Moderate malnutrition with hypoalbuminemia: -continue with albumin infusion as needed Anemia postop: -Hemoglobin stable. Continue monitor closely. If significantly below 8.0 will consider transfusion. Disposition: Pending placement at this time Critical Care: No
--- NOTE | 2018-12-11 16:53 | PN ---
Date of Progress Note: 12/11/2018 NEPHROLOGY FOLLOWUP Subjective: The patient was admitted with the acute kidney injury secondary to contrast, was oliguri c, over-volume. After starting on Lasix drip, recovered, acidosis recovered and the small bowel obst ruction has been improved. The patient had a history of colon cancer. Physical Examination: Vital Signs: Blood pressure 110/67, pulse of 106, afebrile. Chest: Clear to auscultation. Heart: S1, S2 regular. Systolic murmur. Abdomen: Soft. Extremities: Trace edema. Laboratory Data: WBC 9, H and H 8.3/25, platelet 195. Sodium 146, potassium 4.1, bicarb 24, BUN 44, creatinine down to 1.1. Calcium 7.3. Current Medications: The patient on, it include, meropenem 1 g q.8, aspirin, Lovenox, Zofran, pantop razole. Tramadol. Assessment And Plan: 1.Acute kidney injury secondary to toxic ATN contrast, prerenal, nonoliguric, recovered, resolved. 2.Anasarca, improving. Continue to monitor. I am going to give single dose of Lasix today, and we will follow up. 3.Abdominal abscess, status post irrigation and debridement. Continue current antibiotic. We will follow up with the primary. TAMIR Voice ID: [id number] Report ID: [id number]
--- NOTE | 2018-12-11 17:32 | PN ---
Subjective: The patient is lying in bed. Denies any headache, nausea, vomiting, chest pain, abdomin al pain, constipation, or diarrhea. Objective: Vital Signs: Temperature 98, pulse 78, respirations 16, and blood pressure 110/67. Lungs: Basal crackles. Heart: S1 and S2, regular. Abdomen: Soft. Bowel sounds present. Abdominal wound noted. Hector are in place. RHYS drain has b een removed. Extremities: No edema. Assessment And Plan: Status post septic shock and peritonitis, with intraabdominal abscess and incis ion and drainage. The patient is doing better. Continue on broad-spectrum antibiotic and wound care . We will follow the patient closely. NF/MODL Voice ID: [id number] Report ID: [id number]
[2018-12-11] MEDS ORDERED: ONDANSETRON 4 MG (ODT) TAB PO PRN (17:34)
[2018-12-12] MEDS: TRAMADOL HCL 50 MG TAB PO PRN ×2 (05:35→14:27)
[2018-12-12 05:45] VITALS: BMI 22.1
[2018-12-12] MEDS: INSULIN -REGULAR HUMAN 50 UNIT/0.5 ML ML SQ SCH ×2 (07:30→11:30)
[2018-12-12] MEDS: ARFORMOTEROL TARTRATE 15 MCG/2 ML VIAL.NEB NEB SCH (07:39)
[2018-12-12] MEDS: ENOXAPARIN 40 MG/0.4 ML SQ SCH (08:13)
[2018-12-12] MEDS: ASPIRIN EC 81 MG TAB PO SCH (08:13)
[2018-12-12] MEDS: PANTOPRAZOLE 40MG TABLET PO SCH (08:14)
[2018-12-12] MEDS ORDERED: FUROSEMIDE 20 MG TABLET PO SCH (09:00)
[2018-12-12 10:20] VITALS: O2SAT 97
[2018-12-12 12:27] VITALS: BP 111/64; TEMP 98.2
--- NOTE | 2018-12-12 14:06 | P.PN ---
Subjective Date of Service: 12/12/18 Primary Care Provider: Dr. Ramos; Cardiology-Dr. Toledo; Surgery-Dr. Mora Chief Complaint: COPD Subjective: Improving feels better edema improved stable vitals cleared for discharge from nephrology point of view Physical Examination - Vital Signs Temperature: 98.2 F Blood Pressure: 111/64 Pulse: 105 Respirations: 16 Pulse Ox (%): 97 - Physical Exam General: Oriented x3 HEENT: Atraumatic Neck: Supple, Without JVD or thyroid abnormality Respiratory: Clear to auscultation bilaterally, Normal air movement Cardiovascular: Regular rate/rhythm, Normal S1 S2, No rubs, No murmurs, Edema - Studies Medications List Reviewed: Yes Assessment And Plan - Current Problems (Diagnosis) (1) Anemia Onset Date: 12/02/18 Current Visit: Yes Status: Acute (2) Total bilirubin, elevated Onset Date: 12/02/18 Current Visit: Yes Status: Acute - Plan Acute kidney injury Likely due to contrast induced nephropathy +/- poor perfusion, improved Hpernatremia off tpn now encourage Po fluid intake sepsis due to peritonitis. S/p surgical intervention Cont Abx Edmea cont lasix
--- NOTE | 2018-12-12 16:40 | P.DS ---
Admission Date: 11/30/18 Discharge Date: 12/12/18 Primary Care Provider: Dr. Ramos; Cardiology-Dr. Toledo; Surgery-Dr. Mora Disposition: TRANSFER TO SNF - REHAB Discharge Condition: GOOD Reason for Admission: COPD Consultations: Cardiology Nephrology General surgery Procedures: Expiratory laparotomy with lysis of adhesion, drainage of abdominal abscess, partial colectomy, ileostomy Brief History of Present Illness: Patient is a 78-year-old gentleman who came into the hospital with complaints of fever. His temp was up to 102.4. He recently was admitted to the hospital and diagnosed with colon cancer. He had a partial colectomy. He was treated by colorectal surgeon Dr. Mora. Patient did have bleeding intra-abdominally after the surgery and had the have another surgical procedure. Patient's significant other states that he had about 2 L of blood removed. Patient had 2 units of packed red blood cells transfused at that time as well. Patient recovered well and was discharged home. Patient has been home for about 4 days and has been doing well with no complaints. Around 7:00 p.m. tonight he had a fever of 101.4. This went up to 102.4. The significant other decided to bring him into the hospital for further evaluation. In the emergency room the ER physician notified the surgical group at [facility] but since there was nothing worrisome on the CT scan that required any kind of surgical intervention they decided admit him to our facility as the patient also wanted to not be transferred. 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 Otherwise, no other unusual findings. Patient may need a if diagnostic if paracentesis a less we can find another source of the fever. At this time, chest x-ray, UA, and blood cultures are pending. Will be admitted to the hospital for further workup. Patient did have an elevated troponin. 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 Toledo. Patient has Coronary artery disease and apparently has a Coronary artery that is 100% occluded. This is being medically managed. Hospital Course: Discharge diagnosis 1. Severe septic shock 2. Peritonitis with intra-abdominal abscess 3. Status post partial colectomy, ileostomy and repair of anastomosis tear 4. Acute kidney injury 5. History of colon cancer 6. Coronary artery disease with elevated troponin 7. Hypertension 8. Diabetes type 2 9. 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 Acute blood loss anemia 12. transaminitis 13. Moderate malnutrition Hospital Course Overall during the hospital course patient remained stable The patient was initially admitted to the hospital for fever of unknown origin was found to have septic shock, peritonitis with intra-abdominal abscess and complications of the recent right-sided hemicolectomy, acute kidney injury, coronary artery disease, transaminitis, acute blood loss anemia, thrombus of the superior mesenteric vein. Patient was initially admitted to the hospital for fever of unknown origin status post right hemicolectomy 2 weeks prior to the hospitalization at a tertiary care center. Initial thought was the patient is unknown origin fever is most likely secondary to atelectasis versus UTI. However patient's UA was negative for any acute abnormality and abdominal CT chest abdomin pelvic along with abdominal ultrasound revealed that patient has peritonitis with intra- abdominal abscess and complications of his recent right-sided hemicolectomy. In addition he was also found to have small thrombus in 1 of the branches of his small mesenteric vein. She initially was admitted to the medical-surgical floor however within 24 hr of admission patient had hemodynamic instability with hypotension tachycardia and excruciating abdominal pain and was thus transferred to the ICU for further care. At that time patient's general surgeon at a tertiary care center was contacted again who agreed to transfer patient under his care at the tertiary care to evaluate for the peritonitis intra-abdominal abscess and complication of his recent surgery. Transfer however was unsuccessful due to bed management and thus general surgery here in the hospital was consulted. General surgery here in the hospital took the patient to the OR and patient had expiratory laparotomy with lysis of adhesion, removal of abdominal abscess along with partial resection of the ileal colonic anastomosis withn ileostomy. After admission patient was also started on IV Zosyn and was switched over to meropenem after acute decline in his status. Patient initially was placed on Levophed for pressure support and was successfully weaned off post procedure. Patient did well postprocedure while here in the hospital did have postop ileus as 1 of the complication however was started on TPN and diet was advanced slowly. Patient then was transferred to the regular medical surgical floor and was working with physical therapy, tolerating 20-30% diet and doing well overall. No further complications were noted and no further fever were noted either. Patient at that time was discontinued from TPN and a referral was made to transfer the patient to a retirement facility. Patient completed of they stay here have while here in the hospital Due to severe septic shock and inadequate organ perfusion patient was found to have acute kidney injury. Nephrology was consulted who followed patient on the hospital course. Patient was initially kept on IV fluids which improved his kidney function markedly. Patient was asked to follow up with nephrology in about 1-2 days post discharge from the hospital. Patient before it taken to the surgery was evaluated by cardiology and was cleared for surgery however was found to have coronary artery disease with 100% blockage in 1 of the arteries however due to the comorbid condition medical management was opted for the patient. 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 This however did improve while here in the hospital. Patient when initially admitted to the hospital for CT abdomen which was consistent with thrombosis of the superior mesenteric vein. Patient was opted out of anti coagulation due to recent abdominal surgery and acute nature. Patient was asked to follow up with his colon surgeon once he is discharged from the retirement facility was also asked to follow up with cardiology along with nephrology and primary care doctor. Patient was accepted at [facility] and thus was transferred over to retirement facility for further care Vital Signs/Physical Exam: Temp Pulse Resp BP Pulse Ox 98.2 F 105 H 16 111/64 97 12/12/18 14:06 12/12/18 14:06 12/12/18 14:06 12/12/18 14:06 12/12/18 14:06 General: Alert, In no apparent distress HEENT: Atraumatic, PERRLA, EOMI Neck: Supple, JVD not distended Respiratory: Clear to auscultation bilaterally, Normal air movement Cardiovascular: Regular rate/rhythm, Normal S1 S2 Gastrointestinal: Normal bowel sounds, No tenderness Musculoskeletal: No tenderness Integumentary: No rashes Neurological: Normal speech, Normal tone, Normal affect Lymphatics: No axilla or inguinal lymphadenopathy Laboratory Data at Discharge: WBC 9.0 K/uL (4.3-10.9) 12/10/18 04:40 Hgb 8.3 g/dL (13.6-17.9) L 12/10/18 04:40 Hct 25.0 % (39.6-49.0) L 12/10/18 04:40 Plt Count 195 K/uL (152-406) 12/10/18 04:40 PT 16.2 SECONDS (9.5-12.5) H 11/29/18 23:30 INR 1.37 11/29/18 23:30 APTT Cancelled 12/05/18 15:55 Sodium 146 mmol/L (136-145) H 12/10/18 04:40 Potassium 4.1 mmol/L (3.5-5.1) 12/10/18 04:40 BUN 44 mg/dL (7-18) H 12/10/18 04:40 Creatinine 1.10 mg/dL (0.55-1.3) 12/10/18 04:40 Glucose 75 mg/dL (74-106) 12/10/18 04:40 Phosphorus 3.6 mg/dL (2.5-4.9) 12/08/18 04:00 Magnesium 2.0 mg/dL (1.8-2.4) 12/10/18 04:40 Total Bilirubin 1.4 mg/dL (0.2-1.0) H 12/10/18 04:40 AST 88 U/L (15-37) H 12/10/18 04:40 ALT 85 U/L (12-78) H 12/10/18 04:40 Alkaline Phosphatase 183 U/L (45-117) H 12/10/18 04:40 Troponin I 0.56 ng/mL (0.0-0.045) H* 11/30/18 05:57 Lipase 93 U/L (73-393) 11/29/18 23:30 Home Medications: Allopurinol 300 mg PO DAILY 01/15/18 Atorvastatin Calcium [Lipitor] 40 mg PO BEDTIME 01/15/18 Isosorbide Mononitrate [Isosorbide Mononitrate ER] 30 mg PO DAILY #90 tab.er.24h 01/15/18 Metoprolol Tartrate [Lopressor] 0.5 mg PO DAILY 01/15/18 Pantoprazole [Protonix Tab*] 40 mg PO DAILY 01/15/18 Aspirin [Aspirin EC 81 MG] 1 tab PO DAILY 11/30/18 Fluticasone/Salmeterol [Advair Hfa 115-21 Mcg Inhaler] 2 puff IH BID* 11/30/18 traMADol HCL [Ultram*] 1 tab PO Q6H PRN 11/30/18 Followup: Maco Saleem MD [ACTIVE - CAN ADMIT] - (FOLLOW UP IN 2-[address] SALEEM OFFICE FOR APPOINTMENT.)
== END 2018-12-12 14:59 | DRG 853 ==
LOC: ER 22:23 → ERHOLD 11-30 05:01 → 4TH 11-30 05:27 → 3RD-ICU 12-02 15:55 → 2ND 12-05 17:30
PROVIDERS: ADMIT Hospitalist; ATTEND Family Medicine
PROC: 0DBL0ZZ Excision of Transverse Colon, Open Approach (ICD-10-PCS; 2018-12-02)
PROC: 0DBU0ZZ Excision of Omentum, Open Approach (ICD-10-PCS; 2018-12-02)
PROC: 0D1B0Z4 Bypass Ileum to Cutaneous, Open Approach (ICD-10-PCS; 2018-12-02)
PROC: 0W9G0ZZ Drainage of Peritoneal Cavity, Open Approach (ICD-10-PCS; 2018-12-02)
PROC: 0DN80ZZ Release Small Intestine, Open Approach (ICD-10-PCS; 2018-12-02)
PROC: 5A1935Z Respiratory Ventilation, Less than 24 Consecutive Hours (ICD-10-PCS; 2018-12-02)
PROC: 0D9670Z Drainage of Stomach with Drainage Device, Via Natural or Artificial Opening (ICD-10-PCS; 2018-12-02)
PROC: 0DBB0ZZ Excision of Ileum, Open Approach (ICD-10-PCS; principal; 2018-12-02 17:00)
PROC: 3E0G76Z Introduction of Nutritional Substance into Upper GI, Via Natural or Artificial Opening (ICD-10-PCS; 2018-12-05)
DX: A41.9 Sepsis, unspecified organism (principal); R65.21 Severe sepsis with septic shock; J96.00 Acute respiratory failure, unspecified whether with hypoxia or hypercapnia; I81 Portal vein thrombosis; K65.1 Peritoneal abscess; N17.0 Acute kidney failure with tubular necrosis; N17.9 Acute kidney failure, unspecified; R18.8 Other ascites; D68.9 Coagulation defect, unspecified; J90 Pleural effusion, not elsewhere classified; D62 Acute posthemorrhagic anemia; K91.89 Other postprocedural complications and disorders of digestive system; C18.9 Malignant neoplasm of colon, unspecified; E87.2 Acidosis; J98.11 Atelectasis; E44.0 Moderate protein-calorie malnutrition; K56.7 Ileus, unspecified; E87.0 Hyperosmolality and hypernatremia; J44.9 Chronic obstructive pulmonary disease, unspecified; I25.10 Atherosclerotic heart disease of native coronary artery without angina pectoris; Z98.61 Coronary angioplasty status; E78.5 Hyperlipidemia, unspecified; I10 Essential (primary) hypertension; E88.09 Other disorders of plasma-protein metabolism, not elsewhere classified; K21.9 Gastro-esophageal reflux disease without esophagitis; D63.8 Anemia in other chronic diseases classified elsewhere; D50.9 Iron deficiency anemia, unspecified; D72.829 Elevated white blood cell count, unspecified; R79.89 Other specified abnormal findings of blood chemistry; M10.9 Gout, unspecified; K76.9 Liver disease, unspecified; I95.9 Hypotension, unspecified; Y83.2 Surgical operation with anastomosis, bypass or graft as the cause of abnormal reaction of the patient, or of later complication, without mention of misadventure at the time of the procedure; Y92.019 Unspecified place in single-family (private) house as the place of occurrence of the external cause; Z90.49 Acquired absence of other specified parts of digestive tract; J98.2 Interstitial emphysema; N14.1 Nephropathy induced by other drugs, medicaments and biological substances; T50.8X5A Adverse effect of diagnostic agents, initial encounter; Y92.234 Operating room of hospital as the place of occurrence of the external cause; E87.6 Hypokalemia; Z68.23 Body mass index [BMI] 23.0-23.9, adult
CPT/HCPCS: 36415; 71045; 71046; 71260; 74018; 74177; 76700; 76870; 80048; 80053; 80069; 80076; 80202; 81003; 81015; 82550; 82570; 82607; 82728; 82962; 83540; 83605; 83690; 83735; 84100; 84132; 84145; 84156; 84439; 84443; 84466; 84484; 85014; 85018; 85025; 85610; 87040; 87804; 88305; 88307; 93005; 93306; 94002; 94003; 96361; 96365; 96367; 97116; 97162; 97164; 97530; 99285; C9113; J0330; J0610; J0692; J1650; J1940; J2370; J2405; J2543; J2704; J3010; J3411; J3475; J7030; J7060; J7605; J7606; Q9967

== ENCOUNTER 2019-01-09 17:01 | Emergency (ER) | payer OTHER ==
--- OUTSIDE RECORDS SUMMARY | 2019-01-09 17:05 | XMS REPORT | Clinical Summary ---
:1940 Author Organization [facility] Address [address] [place] [address] Care Team Providers Name Role Phone Jaspal [...] every 30 MG 24 hr tablet morning. SUPREP BOWEL PREP Take 2 Bottles 354 mL 0 11/13/2018 11/13/2018 KIT 17.5-3.13-1.6 (354 mL total) by gram recon soln mouth once for 1 dose. Take as directed by physician traMADol (ULTRAM) 50 Take 1 tablet (50 30 tablet 0 11/26/2018 12/01/2018 mg tablet mg total) by mouth every 6 (six) hours as needed for severe pain for up to 5 days. Active Problems Problem Noted Date Colon cancer 11/21/2018 Encounters Date Type Specialty Care Team Description 12/02/2018 Intake Access N/A 11/22/2018 Anesthesia Event General Surgery Kassidy Hansen, MI[employer]OS[employer]FT NET DEVELOPER 11/22/2018 Surgery General Surgery Jonn Mora MD LAPAROSCOPY, REVISION OF ANASTOMOSIS, DRAINAGE OF HEMATOMA 11/21/2018 Anesthesia Event General Surgery Shanna Machado, STUD MASTER/MISTRESS 11/21/2018 Surgery General Surgery Jonn Mora SINGLE [...] of ascending colon (HCC) (Primary Dx) after 01/08/2018 Family History Medical History Relation Name Comments [...] Taken Blood Pressure 129/59 11/26/2018 12:[address] [employer] Pulse 96 11/26/2018 12:[address] [employer] Temperature 36.9 C (98.5 F) 11/26/2018 12:[address] [employer] Respiratory Rate 20 11/26/2018 12:[address] [employer] Oxygen Saturation 94% 11/26/2018 12:[address] [employer] Inhaled Oxygen Concentration - - Weight 84.2 kg (185 lb 11.2 oz) 11/21/2018 5:[address] [employer] Height 182.9 cm (6') 11/21/2018 5:[address] [employer] Body Mass Index 25.19 11/21/2018 5:[address] [employer] Plan of Treatment Health Maintenance Due Date Last Done Comments SHINGLES VACCINES (#1) 1989 65+ PNEUMOCOCCAL VACCINE (1 of 2 - PCV13) 2004 PNEUMOCOCCAL POLYSACCHARIDE VACCINE AGE 65 AND OVER 2004 INFLUENZA VACCINE 06/12/2018 Procedures Procedure Name Priority Date/Time Associated Comments Diagnosis ESTIMATED GFR Routine 11/26/2018 5:38 Results for this AM [employer] WORKER procedure are in the results section. HEMOGLOBIN & Routine 11/26/2018 5:38 Results for this HEMATOCRIT AM [employer] WORKER procedure are in the results section. BASIC METABOLIC PANEL Routine 11/26/2018 5:38 Results for this AM [employer] WORK[employer] procedure are in the results section. ESTIMATED GFR Routine 11/25/2018 9:03 Results for this AM [employer] WORK[employer] procedure are in the results section. BASIC METABOLIC PANEL Routine 11/25/2018 9:03 Results for this AM [employer] WORKER procedure are in the results section. HC COMPLETE BLD COUNT Routine 11/25/2018 7:30 Results for this W/AUTO DIFF AM [employer]ER procedure are in the results section. ESTIMATED GFR Routine 11/24/2018 4:05 Results for this AM [employer] WORK[employer] procedure are in the results section. PHOSPHORUS LEVEL Routine 11/24/2018 4:05 Results for this AM [employer] WORK[employer] procedure are in the results section. MAGNESIUM LEVEL Routine 11/24/2018 4:05 Results for this AM [employer] WORKER procedure are in the results section. BASIC METABOLIC PANEL Routine 11/24/2018 4:05 Results for this AM [employer] WORK[employer] procedure are in the results section. HC COMPLETE BLD COUNT Routine 11/24/2018 4:05 Results for this W/AUTO DIFF AM [employer] WORKER procedure are in the results section. HEMOGLOBIN & Timed 11/23/2018 3:00 Results for this HEMATOCRIT PM [employer] WORKER procedure are in the results section. HC COMPLETE BLD COUNT Routine 11/23/2018 4:05 Results for this W/AUTO DIFF AM [employer] WORKER procedure are in the results section. ESTIMATED GFR Routine 11/23/2018 4:00 Results for this AM [employer] WORKER procedure are in the results section. PHOSPHORUS LEVEL Routine 11/23/2018 4:00 Results for this AM [employer] WORKER procedure are in the results section. MAGNESIUM LEVEL Routine 11/23/2018 4:00 Results for this AM [employer] WORKER procedure are in the results section. BASIC METABOLIC PANEL Routine 11/23/2018 4:00 Results for this AM [employer] WORK[employer] procedure are in the results section. HC COMPLETE BLD COUNT Timed 11/22/2018 9:15 Results for this W/AUTO DIFF PM [employer] procedure are in the results section. ESTIMATED GFR Timed 11/22/2018 8:00 Results for this PM [employer] WORKER procedure are in the results section. BASIC METABOLIC PANEL Timed 11/22/2018 8:00 Results for this PM [employer] procedure are in the results section. SURGICAL PATHOLOGY Routine 11/22/2018 5:30 Results for this REQUEST PM [employer] WORKER procedure are in the results section. TRANSFUSE RED BLOOD Routine 11/22/2018 5:[address] PM [employer] [address] WORKER TRANSFUSE RED BLOOD STAT 11/22/2018 4:09 CELL[address] PM [employer] OF [address] WORKER TX AN EMERGENT Routine 11/22/2018 3:52 ENDOTRACHEAL AIRWAY PM RIGHT OF WAY WORKER Procedure Note - Kassidy Hansen CRNA - 11/22/2018 3:[address] WORKER ANESTHESIA INTUBATION Date/Time: 11/22/2018 3:25 PM Performed by: Kassidy Hansen CRNA Authorized by: Felipe Trejo MD Location: OR Urgency: Emergent Difficult Airway: No Anesthesiologist: Rodrigo Oates MD Resident/MI[employer]OS[employer]FT NET DEVELOPER/AA: Kassidy Hansen CRNA Performed by: resident/[employer] NET DEVELOPER/AA Consent Cannot be Obtained Due to Urgency: [...] SUCCESSFULL SIGMOIDECTOMY, 11/22/2018 2:50 PM bleeding LAPAROSCOPIC RIGHT [employer] WORKER ESTIMATED GFR Timed 11/22/2018 12:15 PM Results for this [employer] WORKER procedure are in the results section. HC COMPLETE BLD COUNT Timed 11/22/2018 12:15 PM Results for this W/AUTO DIFF [employer] procedure are in the results section. PHOSPHORUS LEVEL Timed 11/22/2018 12:15 PM Results for this [employer] WORKER procedure are in the results section. BASIC METABOLIC PANEL Timed 11/22/2018 12:15 PM Results for this [employer] WORK[employer] procedure are in the results section. ESTIMATED GFR Routine 11/22/2018 3:40 AM Results for this [employer] WORKER procedure are in the results section. PHOSPHORUS LEVEL Routine 11/22/2018 3:40 AM Results for this [employer] WORKER procedure are in the results section. MAGNESIUM LEVEL Routine 11/22/2018 3:40 AM Results for this [employer] WORKER procedure are in the results section. BASIC METABOLIC PANEL Routine 11/22/2018 3:40 AM Results for this [employer] WORKER procedure are in the results section. HC COMPLETE BLD COUNT Routine 11/22/2018 3:00 AM Results for this W/AUTO DIFF [employer] procedure are in the results section. SURGICAL PATHOLOGY REQUEST Routine 11/21/2018 1:12 PM Results for this [employer] WORKER procedure are in the results section. TX AN ELECTIVE Routine 11/21/2018 8:35 AM ENDOTRACHEAL AIRWAY RIGHT [employer] WORKER Procedure Note - Yaima Krause CRNA - 11/21/2018 8:[address] WORKER Airway Date/Time: 11/21/2018 8:02 AM Performed by: Yaima Krause CRNA Authorized by: Felipe Trejo MD Location: OR Urgency: Elective Difficult Airway: No Anesthesiologist: Felipe Trejo MD Resident/MICROSOFT NET DEVELOPER/AA: Yaima Krause CRNA Performed by: resident/AMANDA/AA Preoxygenated [...] easily. MAGNESIUM LEVEL STAT 11/21/2018 8:[address] WORKER IONIZED CALCIUM, ARTERIAL STAT 11/21/2018 8:[address] WORKER GLUCOSE LEVEL, SYRINGE STAT 11/21/2018 8:[address] WORKER HEMOGLOBIN, SYRINGE STAT 11/21/2018 8:[address] WORKER POTASSIUM, SYRINGE STAT 11/21/2018 8:[address] WORKER SODIUM LEVEL, SYRINGE STAT 11/21/2018 8:[address] WORKER ARTERIAL BLOOD GAS STAT 11/21/2018 8:[address] [employer]ER LACTIC ACID, SYRINGE STAT 11/21/2018 8:[address] WORKER ARTERIAL LINE Routine 11/21/2018 8:[address] WORKER Procedure Note - Felipe Trejo MD - 11/21/2018 8:[address] [employer]ER Arterial line Performed by: Felipe Trejo MD [...] immediate complications COLECTOMY, PARTIAL, 11/21/2018 7:[address] WORKER Cancer of ascending colon LAPAROSCOPIC (HCC) Special Needs EST 2 HRS, TF~1400, REQ 1200 START ECG PRE/POST OP Routine 11/15/2018 1:02 PM Preop testing Results for this [employer] WORKER procedure are in the results section. CARCINOEMBRYONIC ANTIGEN Routine 11/15/2018 12:52 PM Preop testing Results for this (CEA) [employer] WORKER procedure are in the results section. PREPARE RBC Routine 11/15/2018 12:43 PM Results for this [employer] WORKER procedure are in the results section. PREPARE RBC Routine 11/15/2018 12:43 PM Results for this [employer] WORKER procedure are in the results section. TYPE AND SCREEN Routine 11/15/2018 12:43 PM Preop testing Results for this [employer] WORKER procedure are in the results section. ESTIMATED GFR Routine 10/24/2018 1:36 PM Results for this [employer] WORKER procedure are in the results section. COMPREHENSIVE METABOLIC Routine 10/24/2018 1:36 PM Preop testing Results for this PANEL [employer] WORK[employer] procedure are in the results section. CBC HEMOGRAM Routine 10/24/2018 1:36 PM Preop testing Results for this [employer] WORKER procedure are in the results section. after 01/08/2018 Results Estimated GFR (11/26/2018 5:[address] WORKER)Only the most recent of8 resultswithin the time period is included. Estimated GFR 81 mL/min/1.73 m2 [facility] Comment: HOSPITAL CatergoryUnitsInterpretation G1 >=90 Normal or high G2 60-89Mildly decreased [id number] to moderately decreased [id number] to severely decreased G4 15-29Severely decreased G5 <15Kidney failure The eGFR was calculated using the Chronic Kidney Disease Epidemiology Collaboration (CKD-EPI) equation. Interpretation is based on recommendations of the National Kidney Foundation-Kidney Disease Outcomes Quality Initiative (NKF-KDOQI) published in 2014. Specimen Plasma specimen Performing Organization Address City/State/Zipcode Phone Number [facility] DEPARTMENT OF PATHOLOGY AND [address] [place] [address] GENOMIC MEDICINE [facility] [address] [place] [address] Hemoglobin & hematocrit (11/26/2018 5:[address] WORKER)Only the most recent of2 resultswithin the time period is included. HGB 8.2 (L) 14.0 - 18.0 g/dL [facility] HCT 24.3 (L) 41.0 - 51.0 % [facility] Specimen Blood Performing Organization Address City/[facility] Phone Number [facility] DEPARTMENT OF PATHOLOGY AND [address] [place] [phone] [place] [phone] Basic metabolic panel (11/26/2018 5:[address] WORKER)Only the most recent of7 resultswithin the time period is included. Sodium 137 135 - 148 mEq/L [facility] Potassium 3.6 3.5 - 5.0 mEq/L [facility] Chloride 105 98 - 112 mEq/L [facility] CO2 23 (L) 24 - 31 mEq/L [facility] Anion gap 9@ANIO 7 - 15 mEq/L [facility] BUN 23 8 - 23 mg/dL [facility] Creatinine 0.88 0.70 - 1.20 mg/dL [facility] Glucose 106 (H) 65 - 99 mg/dL [facility] Calcium 8.3 (L) 8.8 - 10.2 mg/dL [facility] Specimen Plasma specimen Performing Organization Address City/[facility]ode Phone Number [facility] DEPARTMENT OF PATHOLOGY AND [address] [phone] CBC with platelet and differential (11/25/2018 7:[address] WORKER)Only the most recent of6 resultswithin the time period is included. WBC 11.48 (H) 4.50 - 11.00 k/uL [facility] RBC 2.61 (L) 4.40 - 6.00 m/uL [facility] HGB 8.5 (L) 14.0 - 18.0 g/dL [facility] HCT 24.9 (L) 41.0 - 51.0 % [facility] MCV 95.4 82.0 - 100.0 fL [facility] MCH 32.6 27.0 - 34.0 pg [facility] MCHC 34.1 31.0 - 37.0 g/dL [facility] RDW - SD 58.3 (H) 37.0 - 55.0 fL [facility] MPV 10.3 8.8 - 13.2 fL [facility] Platelet count 101 (L) 150 - 400 k/uL [facility] Nucleated RBC 0.00 /100 WBC [facility] Neutrophils 80.0 (H) 39.0 - 69.0 % [facility] Lymphocytes 8.9 (L) 25.0 - 45.0 % [facility] Monocytes 8.9 0.0 - 10.0 % [facility] Eosinophils 1.1 0.0 - 5.0 % [facility] Basophils 0.3 0.0 - 1.0 % [facility] Immature granulocytes 0.8Comment: "Immature 0.0 - 1.0 % [facility] granulocytes" HOSPITAL (promyelocytes, myelocytes, metamyelocytes) Specimen Blood Performing Organization Address City/[facility]ercode Phone Number [facility] DEPARTMENT OF PATHOLOGY AND [address] [place] [address] Phosphorus level (11/24/2018 4:[address]ER)Only the most recent of4 resultswithin the time period is included. Phosphorus 1.8 (L) 2.4 - 4.5 mg/dL [facility] Specimen Plasma specimen Performing Organization Address [facility]owa Phone Number [facility] DEPARTMENT OF PATHOLOGY AND [address] [place] [address] Magnesium level (11/24/2018 4:[address])Only the most recent of4 resultswithin the time period is included. Magnesium 1.9 1.6 - 2.4 mg/dL [facility] Specimen Plasma specimen Performing Organization Address City/[facility] Centercode Phone Number [facility] DEPARTMENT OF PATHOLOGY AND [address] [place] [address] Surgical pathology request (11/22/2018 5:[address]ER)Only the most recent of2 resultswithin the time period is included. [facility] DEPARTMENT OF PATHOLOGY AND GENOMIC MEDICINE Surgical pathology report See link below for PDF [facility] DEPARTMENT OF Lab Report PATHOLOGY AND GENOMIC MEDICINE Result status This is Final Report [facility] DEPARTMENT OF for [id number] PATHOLOGY AND GENOMIC MEDICINE Performing Organization Address City/[facility]ercode Phone Number [facility] DEPARTMENT OF PATHOLOGY AND [address] [place] [address] [facility] Transfuse RBC (11/22/2018 5:[address])Only the most recent of2 resultswithin the time period is included.Sodium level, syringe (11/21/2018 8:[address] [employer]) Sodium, syringe 144 135 - 148 mEq/L [facility] Specimen Blood Performing Organization Address City/[facility]ercode Phone Number [facility] DEPARTMENT OF PATHOLOGY AND [address] [place] [phone] [place] [phone] Potassium, syringe (11/21/2018 8:[address] [employer]ER) Potassium, syringe 3.3 (L) 3.5 - 5.0 mEq/L [facility] Specimen Blood Performing Organization Address City/[facility]ercode Phone Number [facility] DEPARTMENT OF PATHOLOGY AND [address] [place] [phone] [address] Lactic acid, syringe (11/21/2018 8:[address] [employer]ER) Lactic acid, syringe 0.9 0.5 - 2.2 mmol/L [facility] Specimen Blood Performing Organization Address [facility]ercode Phone Number [facility] DEPARTMENT OF PATHOLOGY AND [address] [place], [place] [phone] [address] [address] Ionized calcium, arterial (11/21/2018 8:[address] [employer]ER) Ionized calcium, arterial 1.05 (L) 1.11 - 1.32 mmol/L [facility] Specimen Blood Performing Organization Address City/[facility]ercode Phone Number [facility] DEPARTMENT OF PATHOLOGY AND [address] [place] [phone] [address] Hemoglobin, syringe (11/21/2018 8:[address] WORKER) Hemoglobin, syringe 11.7 (L) 14.0 - 18.0 g/dL [facility] Specimen Blood Performing Organization Address City/[facility]ercode Phone Number [facility] DEPARTMENT OF PATHOLOGY AND [address] [place] [phone] [address] Glucose level, syringe (11/21/2018 8:[address] WORKER) Glucose, syringe 85 65 - 99 mg/dL [facility] Specimen Blood Performing Organization Address City/[facility] Phone Number [facility] DEPARTMENT OF PATHOLOGY AND [address] [place] [phone] Arterial blood gas (11/21/2018 8:[address] [employer]) pH, arterial 7.37 7.35 - 7.45 [facility] pCO2, arterial 36 35 - 45 mmHg [facility] pO2, arterial 196 (H) 80 - 90 mmHg [facility] Bicarbonate, arterial 20.4 (L) 21.0 - 28.0 mmol/L [facility] Base excess, arterial -4 (L) -2 - 2 mEq/L [facility] O2 saturation, arterial 99 95 - 100 % [facility] Specimen Blood Performing Organization Address [facility] Phone Number [facility] DEPARTMENT OF PATHOLOGY AND [address] [place] [phone] ECG Pre/Post Op (11/15/2018 1:[address] [employer]) Ventricular rate 68 [facility] Atrial rate 68 [facility] TX interval 248 [facility] QRSD interval 110 [facility] QT interval 424 [facility] QTC interval 450 [facility] P axis 1 20 [facility] QRS axis 1 -5 [facility] T wave axis 2 [facility] EKG impression Sinus rhythm with 1st degree AV [facility] block-Anteroseptal infarct , age undetermined-Abnormal ECG-No previous ECGs available- Narrative Performed At Performing Organization Address [facility] Centercode Phone Number [facility] MUSE [address] [place] [phone] Carcinoembryonic antigen (CEA) (11/15/2018 12:[address] WORKER) CEA 2.8 0.0 - 3.8 ng/mL [facility] Comment: Reference range for heavy smokers:0.0 - 5.5 ng/mL The JENNY Kathie 8000 CEA immunoassay was used. Results obtained with different assay methods or kits should not be used interchangeably and may be different. Specimen Serum Performing Organization Address City/[facility]/Zipcode Phone Number [facility] DEPARTMENT OF PATHOLOGY AND [address] [place] [address] Prepare RBC (11/15/2018 12:[address])Only the most recent of2 resultswithin the time period is included. Product name Red Blood Cells -1, [facility] Unit number [id number] [facility] Product code [id number] [facility] Dispense status Transfused [facility] Blood expiration date [facility] Blood type code [address] [place] [address] Blood type A POSITIVE [facility] Product name Red Blood Cells -1, [facility] Unit number [id number] [facility] Product code [id number] [facility] Dispense status Returned to BB not [facility] Blood expiration date [facility] Blood type code [facility]0 [facility] Blood type A POSITIVE [facility] Performing Organization Address [facility] Phone Number [facility] DEPARTMENT OF PATHOLOGY AND [address] [place] [phone] Type and screen (11/15/2018 12:[address] WORKER) ABO grouping A [facility] Rh type POS [facility] Antibody screen (gel) NEG [facility] Specimen Blood Performing Organization Address City/[facility]ode Phone Number [facility] DEPARTMENT OF PATHOLOGY AND [address] [place] [phone] CBC hemogram (10/24/2018 1:[address] WORKER) WBC 7.84 4.50 - 11.00 k/uL [facility] RBC 3.88 (L) 4.40 - 6.00 m/uL [facility] HGB 13.0 (L) 14.0 - 18.0 g/dL [facility] HCT 38.0 (L) 41.0 - 51.0 % [facility] MCV 97.9 82.0 - 100.0 fL [facility] MCH 33.5 27.0 - 34.0 pg [facility] MCHC 34.2 31.0 - 37.0 g/dL [facility] RDW - SD 50.7 37.0 - 55.0 fL [facility] MPV 10.2 8.8 - 13.2 fL [facility] Platelet count 162 150 - 400 k/uL [facility] Nucleated RBC 0.00 /100 WBC [facility] Specimen Blood Performing Organization Address City/State/Zipcode Phone Number [facility] DEPARTMENT OF PATHOLOGY AND [address] [place] [address] GENOMIC MEDICINE [facility] [address] [place] [address] Comprehensive metabolic panel (10/24/2018 1:[address]) Sodium 139 135 - 148 mEq/L [facility] Potassium 4.2 3.5 - 5.0 mEq/L [facility] Chloride 102 98 - 112 mEq/L [facility] CO2 24 24 - 31 mEq/L [facility] Anion gap 13@ANIO 7 - 15 mEq/L [facility] BUN 14 8 - 23 mg/dL [facility] Creatinine 0.98 0.70 - 1.20 mg/dL [facility] Glucose 93 65 - 99 mg/dL [facility] Calcium 9.1 8.8 - 10.2 mg/dL [facility] Protein 6.1 (L) 6.3 - 8.3 g/dL [facility] Comment: HOSPITAL [place] 4.6-7.0 g/dL 1 week 4.4-7.6 g/dL 7 months-1year5.1-7.3 g/dL 1-2 years5.6-7.5 g/dL >3 years6.0-8.0 g/dL 18-150 6.3-8.3 g/dL Albumin 3.5 3.5 - 5.0 g/dL [facility] A/G ratio 1.3 0.7 - 3.8 [facility] Alkaline phosphatase 95 40 - 129 U/L [facility] AST 26 10 - 50 U/L [facility] ALT 21 5 - 50 U/L [facility] Total bilirubin 1.2 0.0 - 1.2 mg/dL [facility] Specimen Plasma specimen Performing Organization Address City/State/Zipcode Phone Number [facility] DEPARTMENT OF PATHOLOGY AND [address] [place] [address] GENOMIC MEDICINE [facility] [address] [place] [address] after 01/08/2018 Insurance Payer Benefit Plan / Group Subscriber ID Type Phone Address AETNA MEDICARE AETNA MEDICARE HMO/PPO [facility] xxxxxxxx HMO [place] [address] Advance Directives Patient has advance care planning documents, and code status on file. For more information, please contact:[facility] [place] [address] Code Status Date Activated Date Inactivated Comments Full Code 11/21/2018 1:01 PM 11/26/2018 9:19 PM Code Status decision reached by: Patient
--- OUTSIDE RECORDS SUMMARY | 2019-01-09 17:05 | XMS REPORT | Clinical Summary ---
:1940 Author Organization [facility] Address [address] [place] [address] Care Team Providers Name Role Phone Paula [...] Not on file Results Not on fileafter 01/08/2018 Insurance Payer Benefit Plan / Subscriber ID Type Phone Address Group AET[employer] - MEDICARE AETNA MEDICARE HMO xxxxxxxx [phone] [address] [place] [address] (Home) [place] [address]
[2019-01-09 18:20] LABS: Absolute Lymphocytes (CBC) 1.2 K/uL (0.7-4.9); Absolute Monocytes 0.7 K/uL (0.1-1.3); Absolute Neutrophil 10.7 K/uL (1.8-8.0); Basophils % 0.3 % (0-1.3); Hematocrit 21.1 % (39.6-49.0); Lymphocytes % 9.4 % (15.3-44.8); MPV 9.3 fL (7.6-11.3); Monocytes % 5.5 % (3.3-12.3); RBC Red Blood Cell Count 2.16 M/uL (4.33-5.43)
[2019-01-09 18:34] LABS: Protime INR 1.33
[2019-01-09 18:37] LABS: Albumin 1.8 g/dL (3.4-5.0); Bilirubin Direct 0.4 mg/dL (0-0.2); Bilirubin Total 0.6 mg/dL (0.2-1.0)
--- NOTE | 2019-01-09 19:54 | RAD REPORT ---
EXAM DESCRIPTION: RAD - Chest Single View - 01/09/2019 7:30 pm CLINICAL HISTORY: Cough and congestion COMPARISON: December 04, 2018 TECHNIQUE: AP portable chest image was obtained 1928 hours . FINDINGS: Lung volumes are low. Patient has chronic interstitial lung disease. Parenchymal opacifica tion is more prominent in the left base. Overall pattern is not substantially different. Severity of chronic disease can easily mask early pneumonia changes. Failure/volume overload are not suspected. H eart and vasculature are normal. No measurable pleural effusion and no pneumothorax. No acute bony ab normality seen. No acute aortic findings suspected. IMPRESSION: Chronic interstitial lung disease is present not substantially different from comparison . Severity of the chronic disease can easily mask interstitial edema or infiltrate.
[2019-01-09] MEDS ORDERED: NA CHLORIDE 0.9% 250 ML ONE (20:10)
--- NOTE | 2019-01-09 23:33 | ER ---
Nurse's Notes [facility] Name: Gautam Ramirez Jr Age: 78 yrs Sex: Male : 1940 Arrival Date: 01/09/2019 Time: 17:03 Bed 28 Private MD: Diagnosis: Gastrointestinal hemorrhage, unspecified;Anemia, unspecified;s/p recent colon surgery;Urinary tract infection, site not specified;Incisional infection Presentation: 01/09 17:06 Presenting complaint: Patient states: Had lab work drawn a couple days ago, results sg reported that Hgb is very low and I was sent here for a blood transfusion, denies N/V/D/Fever at this time. Transition of care: patient was not received from another setting of care. Onset of symptoms was January 09, 2019. Risk Assessment: Do you want to hurt yourself or someone else? Patient reports no desire to harm self or others. Initial Sepsis Screen: Does the patient meet any 2 criteria? No. Patient's initial sepsis screen is negative. Does the patient have a suspected source of infection? No. Patient's initial sepsis screen is negative. Care prior to arrival: None. 17:06 Method Of Arrival: Ambulatory sg 17:06 Acuity: BENIGNO 3 sg Historical: - Allergies: 17:06 No Known Allergies; sg - PMHx: 17:06 CAD; Hyperlipidemia; Hypertension; sg - PSHx: 17:06 Angioplasty; stents; colon surgery; sg - Immunization history:: Adult Immunizations not up to date. - Social history:: Smoking status: Patient/guardian denies using tobacco. - Ebola Screening: : Patient negative for fever greater than or equal to 101.5 degrees Fahrenheit, and additional compatible Ebola Virus Disease symptoms Patient denies exposure to infectious person Patient denies travel to an Ebola-affected area in the 21 days before illness onset No symptoms or risks identified at this time. Screenin:30 Abuse screen: Denies threats or abuse. Denies injuries from another. Nutritional ca1 screening: No deficits noted. Tuberculosis screening: No symptoms or risk factors identified. Fall Risk No fall in past 12 months (0 pts). IV access (20 points). Ambulatory Aid- Crutches/Cane/Walker (15 pts). Gait- Weak (10 pts.). Assessment: 17:30 General: Appears in no apparent distress. ill, Behavior is calm, cooperative, ca1 appropriate for age. Pain: Denies pain. Neuro: Level of Consciousness is awake, alert, obeys commands, Oriented to person, place, time, situation. Cardiovascular: Heart tones S1 S2 Capillary refill is > 3 seconds Patient's skin is warm and dry. Respiratory: Airway is patent Respiratory effort is even, unlabored, Respiratory pattern is regular, symmetrical, Breath sounds are clear bilaterally. GI: Abdomen is flat, non-distended, Colostomy site is clean and dry. Ostomy appliance is intact. Dressing from fdc in place at the umbilical area, soaked and seeping with yellow-brownish drainage. Bowel sounds present X 4 quads. Abd is soft and non tender X 4 quads. : No signs and/or symptoms were reported regarding the genitourinary system. EENT: No signs and/or symptoms were reported regarding the EENT system. Derm: Skin is fragile, is thin, Skin is pink, warm \T\ dry. Bruising that is dark purple. Musculoskeletal: Circulation, motion, and sensation intact. Capillary refill is > 3 seconds. 18:30 Reassessment: Patient appears in no apparent distress at this time. Patient and/or ca1 family updated on plan of care and expected duration. Pain level reassessed. Patient is alert, oriented x 3, equal unlabored respirations, skin warm/dry/pink. 19:30 Reassessment: Patient appears in no apparent distress at this time. Patient and/or ca1 family updated on plan of care and expected duration. Pain level reassessed. Patient is alert, oriented x 3, equal unlabored respirations, skin warm/dry/pink. wound cleaned and dressed. Sent culture to lab. pt tolerated procedure well. 20:09 Reassessment: Administered blood. Checked with Gay Oviedo RN. Stayed and monitored ca1 pt for 15 minutes. Pt alert, awake and oriented. PT not in respiratory distress. 20:30 Reassessment: Emptied colostomy bag, pt tolerated well. ca1 21:30 Reassessment: Patient appears in no apparent distress at this time. Patient and/or ca1 family updated on plan of care and expected duration. Pain level reassessed. Patient is alert, oriented x 3, equal unlabored respirations, skin warm/dry/pink. family at bedside. Monitored continuously for BT reactions. 22:30 Reassessment: Patient appears in no apparent distress at this time. Patient and/or ca1 family updated on plan of care and expected duration. Pain level reassessed. Patient is alert, oriented x 3, equal unlabored respirations, skin warm/dry/pink. 23:41 Reassessment: Patient appears in no apparent distress at this time. Patient and/or ca1 family updated on plan of care and expected duration. Pain level reassessed. Patient is alert, oriented x 3, equal unlabored respirations, skin warm/dry/pink. 1st unit of BT completed. Pt tolerated well. 01/10 00:05 Reassessment: Patient appears in no apparent distress at this time. Patient and/or ca1 family updated on plan of care and expected duration. Pain level reassessed. Patient is alert, oriented x 3, equal unlabored respirations, skin warm/dry/pink. 00:05 Reassessment: Administered 2nd Unit of BT, monitored pt at bedside, observed for ca1 adverse reactions. 00:35 Reassessment: called report to Armando Anthony RN of [facility]. ca1 00:55 Reassessment: Report to [facility] of EMS . ca1 01:19 Reassessment: UPDATED HERO [facility]STREJON OF [facility] FOR PATIENT'S rv STATUS AND DISPOSITION. Vital Signs: 01/09 17:06 BP 118 / 97; Pulse 115; Resp 21; Pulse Ox 95% on R/A; sg 20:00 BP 95 / 56 RA; Pulse 98; Resp 17 S; Pulse Ox 98% on R/A; rv 20:09 BP 97 / 64; Pulse 94; Resp 18; Temp 98(TE); Pulse Ox 100% ; ca1 20:15 BP 96 / 57 RA; Pulse 101; Resp 14 S; Pulse Ox 98% on R/A; rv 20:40 BP 108 / 54 RA; Pulse 113; Resp 15 S; Pulse Ox 97% on R/A; rv 21:08 BP 107 / 65 RA; Pulse 99; Resp 22 S; Pulse Ox 98% on R/A; rv 22:00 BP 109 / 62 RA; Pulse 121; Resp 21 S; Pulse Ox 98% on R/A; rv 23:00 BP 95 / 65; Pulse 92; Resp 18; Pulse Ox 95% on R/A; ca1 01/10 00:05 BP 102 / 60; Pulse 89; Resp 18; Pulse Ox 98% on R/A; ca1 00:45 BP 102 / 65; Pulse 94; Resp 18; Pulse Ox 97% on R/A; ca1 01/09 20:09 Please see Transfusion Record for BT VS monitoring. ca1 01/10 00:05 SEE Transfusion Record for VS monitoring during BT. ca1 ED Course: 01/09 17:03 Patient arrived in ED. as 17:07 Triage completed. sg 17:07 Arm band placed on. sg 17:28 Raquel Wynne FNP-C is PHCP. snw 17:28 Demarco Arreola MD is Attending Physician. snw 17:30 Patient has correct armband on for positive identification. Placed in gown. Bed in low ca1 position. Call light in reach. Side rails up X2. radiation monitor on. Pulse ox on. NIBP on. Warm blanket given. 17:49 Marta Gonzales, HERO is Primary Nurse. ca1 18:15 Inserted saline lock: 18 gauge in left antecubital area, using aseptic technique. ca1 ,using aseptic technique. by Rudolph Brunner RN Blood collected. 18:20 First set of blood cultures drawn by ED staff. ca1 18:45 Second set of blood cultures drawn by me. ca1 19:30 Chest Single View XRAY In Process Unspecified. EDMS 20:00 Inserted saline lock: 22 gauge in right antecubital area, using aseptic technique. ca1 21:40 CT completed. Patient tolerated procedure well. Patient moved to CT via stretcher. nj Patient moved back from CT. 21:56 CT Abd/Pelvis - W/Contrast In Process Unspecified. EDMS 03 00:45 No provider procedures requiring assistance completed. Patient transferred, IV remains ca1 in place. Administered Medications: 01/09 22:00 Drug: InvANZ 1 grams Route: IVPB; Infused Over: 30 mins; Site: right antecubital; ca1 22:40 Follow up: Response: No adverse reaction; IV Status: Completed infusion ca1 Medication: 20:09 Blood products: PRBCs X 1 unit given. See transfusion record. ca1 01/10 00:05 Blood products: PRBCs X 2 units given. See transfusion record. ca1 Outcome: 01/09 23:33 ER care complete, transfer ordered by . snw 01/10 00:55 Transferred by ground EMS to [facility], Transfer form completed. X-rays ca1 sent w/ patient. Condition: stable Instructed on the need for admit. 01:20 Patient left the ED. rv Addendum: 01/13/2019 08:21 Addendum: Culture Results: Positive wound culture. Phone call Attempt #1 faxed to [facility]. Signatures: Dispatcher [employer] EDEliezer Looney, HERO RN sg Raquel Wynne, DIE ATTACHER-C DIE ATTACHER-Csnw Kelley Herrmann Shelby, RN RN ss Jordan, Nathan nj Vicente, Ronaldo, RN RN rv Acob, HERO Lozano RN ca1 Corrections: (The following items were deleted from the chart) 01/09 22:24 20:09 Blood products: PRBCs X 1 unit given. See transfusion record ca1 ca1 22:26 22:23 Reassessment: ca1 ca1 22:37 17:50 Inserted saline lock: 20 gauge in left antecubital area, using aseptic technique. ca1 Blood collected. ca1 22:38 18:15 Inserted saline lock: 18 gauge in left antecubital area, using aseptic technique. ca1 ,using aseptic technique. by Rudolph Brunner RN Blood collected. ca1 22:40 19:30 Reassessment: Patient appears in no apparent distress at this time. Patient ca1 and/or family updated on plan of care and expected duration. Pain level reassessed. Patient is alert, oriented x 3, equal unlabored respirations, skin warm/dry/pink. ca1
--- NOTE | 2019-01-09 23:33 | EDPHYS ---
Physician Documentation [facility] Name: Gautam Ramirez Jr Age: 78 yrs Sex: Male : 1940 Arrival Date: 01/09/2019 Time: 17:03 Bed 28 Private MD: ED Physician Demarco Arreola HPI: 01/09 18:30 This 78 yrs old Male presents to ER via Ambulatory with complaints of snw Abnormal Lab Results, sent by PCP for blood transfusion. 18:30 pt recently dx with colon cancer, + complication from first surgery, pt had second snw surgery with ileostomy. Pt has been in [place] for rehab and was to be discharged today. Labs drawn yest, noted + anemia and + guaiac. Sent to ED for transfusion. Onset: The symptoms/episode began/occurred acutely. Severity of symptoms: At their worst the symptoms were very mild. The patient has experienced similar episodes in the past. as noted. Historical: - Allergies: 17:06 No Known Allergies; sg - PMHx: 17:06 CAD; Hyperlipidemia; Hypertension; sg - PSHx: 17:06 Angioplasty; stents; colon surgery; sg - Immunization history:: Adult Immunizations not up to date. - Social history:: Smoking status: Patient/guardian denies using tobacco. - Ebola Screening: : Patient negative for fever greater than or equal to 101.5 degrees Fahrenheit, and additional compatible Ebola Virus Disease symptoms Patient denies exposure to infectious person Patient denies travel to an Ebola-affected area in the 21 days before illness onset No symptoms or risks identified at this time. ROS: 18:20 Constitutional: Negative for fever, chills, and weight loss, Eyes: Negative for injury, snw pain, redness, and discharge, ENT: Negative for injury, pain, and discharge, Neck: Negative for injury, pain, and swelling, Cardiovascular: Negative for chest pain, palpitations, and edema, Respiratory: Negative for shortness of breath, cough, wheezing, and pleuritic chest pain, Back: Negative for injury and pain, : Negative for injury, bleeding, discharge, and swelling, MS/Extremity: Negative for injury and deformity, Skin: Negative for injury, rash, and discoloration, Neuro: Negative for headache, weakness, numbness, tingling, and seizure. 18:20 Abdomen/GI: Positive for NH staff reported pt had outpt labs that show anemia, + guaiac. . Exam: 18:17 Head/Face: Normocephalic, atraumatic. Eyes: Pupils equal round and reactive to light, snw extra-ocular motions intact. Lids and lashes normal. Conjunctiva and sclera are non-icteric and not injected. Cornea within normal limits. Periorbital areas with no swelling, redness, or edema. ENT: Nares patent. No nasal discharge, no septal abnormalities noted. Tympanic membranes are normal and external auditory canals are clear. Oropharynx with no redness, swelling, or masses, exudates, or evidence of obstruction, uvula midline. Mucous membranes moist. Neck: Trachea midline, no thyromegaly or masses palpated, and no cervical lymphadenopathy. Supple, full range of motion without nuchal rigidity, or vertebral point tenderness. No Meningismus. Chest/axilla: Normal chest wall appearance and motion. Nontender with no deformity. No lesions are appreciated. 18:17 Back: No spinal tenderness. No costovertebral tenderness. Full range of motion. Skin: Warm, dry with normal turgor. Normal color with no rashes, no lesions, and no evidence of cellulitis. MS/ Extremity: Pulses equal, no cyanosis. Neurovascular intact. Full, normal range of motion. Neuro: Awake and alert, GCS 15, oriented to person, place, time, and situation. Cranial nerves II-XII grossly intact. Motor strength 5/5 in all extremities. Sensory grossly intact. Cerebellar exam normal. Normal gait. 18:17 Constitutional: The patient appears alert, awake, frail, pale. 18:17 Cardiovascular: Rate: bradycardic, Rhythm: regular, Edema: is not appreciated. 18:17 Respiratory: the patient does not display signs of respiratory distress, Respirations: no acute changes, Breath sounds: are clear throughout, chronic cough. 18:17 Abdomen/GI: Inspection: scar(s), are noted in the umbilical area and right lower quadrant, umbilical incision with purulent dc, no bleeding, pt denies pain, + hyperactive bowel sounds, brown stool in ileostomy, Palpation: abdomen is soft and non-tender, in the scaphoid. Vital Signs: 17:06 BP 118 / 97; Pulse 115; Resp 21; Pulse Ox 95% on R/A; sg 20:00 BP 95 / 56 RA; Pulse 98; Resp 17 S; Pulse Ox 98% on R/A; rv 20:09 BP 97 / 64; Pulse 94; Resp 18; Temp 98(TE); Pulse Ox 100% ; ca1 20:15 BP 96 / 57 RA; Pulse 101; Resp 14 S; Pulse Ox 98% on R/A; rv 20:40 BP 108 / 54 RA; Pulse 113; Resp 15 S; Pulse Ox 97% on R/A; rv 21:08 BP 107 / 65 RA; Pulse 99; Resp 22 S; Pulse Ox 98% on R/A; rv 22:00 BP 109 / 62 RA; Pulse 121; Resp 21 S; Pulse Ox 98% on R/A; rv 23:00 BP 95 / 65; Pulse 92; Resp 18; Pulse Ox 95% on R/A; ca1 01/10 00:05 BP 102 / 60; Pulse 89; Resp 18; Pulse Ox 98% on R/A; ca1 00:45 BP 102 / 65; Pulse 94; Resp 18; Pulse Ox 97% on R/A; ca1 01/09 20:09 Please see Transfusion Record for BT VS monitoring. ca1 01/10 00:05 SEE Transfusion Record for VS monitoring during BT. ca1 MDM: 01/09 17:29 Patient medically screened. snw 19:12 Data reviewed: vital signs, nurses notes. Data interpreted: Pulse oximetry: on room air snw is 95 %. Interpretation: normal. Counseling: I had a detailed discussion with the patient and/or guardian regarding: the historical points, exam findings, and any diagnostic results supporting the discharge/admit diagnosis, the presence of at least one elevated blood pressure reading (>120/80) during this emergency department visit, lab results. 19:50 Physician consultation: Matthew Martin MD was called at 19:50, was contacted at 19:50, snw regarding patient's condition, pt has been admitted here in the past when [facility] refused acceptance. Discussed pt with Dr. Martin understanding we do not have GI floor installation mechanic. Will attempt transfer to [facility] for GI bleed with brisk drop in hemoglobin, purulent dc from umbilical incision. CT pending. 22:12 Physician consultation: Dr Do was contacted at 22:13, regarding regarding snw transfer, Dr. Do kindly agrees pt needs higher level of care but wants pt to be in ICU. Transfer center will return call. patient's condition. 23:06 Physician consultation: Dr. Warren was contacted at 22:55, regarding regarding transfer, [facility] Dr. Warren agrees pt needs ICU. As she is an [employer] Supervisor she will see pt in the Medical ICU post finding an admitting MD. [facility] to call back. patient's condition. 23:33 ED course: [facility] called with acceptance to Dr. Flood. snw 01/09 17:48 Order name: CBC with Diff; Complete Time: 19:05 w 01/09 17:48 Order name: Blood Culture Adult (2) sn 01/09 17:48 Order name: TS sn 01/09 17:48 Order name: Ptt, Activated; Complete Time: 19:05 w 01/09 17:48 Order name: PT-INR; Complete Time: 19:05 [facility] 01/09 17:48 Order name: LFT's; Complete Time: 18:39 [facility] 01/09 17:50 Order name: IV Saline Lock; Complete Time: 18:13 ca1 01/09 17:58 Order name: Wound Culture [facility] 01/09 19:07 Order name: Bb Add On w 01/09 19:07 Order name: EKG; Complete Time: 19:08 [facility] 01/09 19:15 Order name: Chest Single View XRAY; Complete Time: 19:57 snw 01/09 19:27 Order name: Packed RBC Leukored -1 EDAL 01/09 20:35 Order name: CT Abd/Pelvis - W/Contrast [facility] 01/09 17:58 Order name: Wound Care; Complete Time: 18:28 w 01/09 19:07 Order name: Transfuse; Complete Time: 20:48 [facility] 01/09 19:07 Order name: EKG - Nurse/Tech; Complete Time: 19:25 snw Administered Medications: 22:00 Drug: InvANZ 1 grams Route: IVPB; Infused Over: 30 mins; Site: right antecubital; ca1 22:40 Follow up: Response: No adverse reaction; IV Status: Completed infusion ca1 Disposition: 01/10 08:27 Co-signature as Attending Physician, Demarco Arreola MD I agree with the assessment and kdr plan of care. Disposition: 02/28/19 23:33 Transfer ordered to [facility]. Diagnosis are Gastrointestinal hemorrhage, unspecified, Anemia, unspecified, s/p recent colon surgery, Urinary tract infection, site not specified, Incisional infection. - Reason for transfer: Higher level of care. - Accepting physician is Dr. Flood. - Condition is Stable. - Problem is an acute exacerbation. - Symptoms are unchanged. Signatures: Dispatcher [employer] Eliezer Sierra, RN RN sg Demarco Arreola MD MD [facility] Raquel Wynne, CIGARETTE VENDOR-C CIGARETTE VENDOR-Csnw Rudolph Brunner RN RN rv Marta Gonzales RN RN ca1 Corrections: (The following items were deleted from the chart) 01:20 01/09 23:33 01/09/2019 23:33 Transfer ordered to [facility]. rv Diagnosis is Gastrointestinal hemorrhage, unspecified; Anemia, unspecified; s/p recent colon surgery; Urinary tract infection, site not specified; Incisional infection. Reason for transfer: Higher level of care. Accepting physician is Dr. Flood. Condition is Stable. Problem is an acute exacerbation. Symptoms are unchanged. snw
[2019-01-10] MEDS ORDERED: NA CHLORIDE 0.9% 250 ML ONE
[2019-01-10 01:30] VITALS: TEMP 98
[2019-01-10 01:39] VITALS: BP 102/65; O2SAT 97
--- NOTE | 2019-01-10 06:52 | EKG ---
Test Date: 2019-01-09 Test Time: 19:18:17 [employer] Associate: JELLY MEASUREMENT RESULTS: Intervals: Rate: 108 AR: 200 QRSD: 110 QT: 376 QTc: 503 [place]: P: AR: 200 QRS: -17 T: 98 INTERPRETIVE STATEMENTS: afib Inferior infarct, age undetermined Anteroseptal infarct, age undetermined Abnormal ECG Compared to ECG 11/29/2018 23:54:47 Fusion complex(es) now present First degree AV block no longer present Myocardial infarct finding still present Electronically Signed On 01-10-19 06:51:42 ZIPPER JOINER by Isidoro Toledo
--- NOTE | 2019-01-10 13:20 | RAD REPORT ---
EXAM DESCRIPTION: CT - Abdomen Pelvis W Contrast - 01/09/2019 10:53 pm COMPARISON: None available CLINICAL HISTORY: GI bleed TECHNIQUE: Multiple helical axial images were obtained through the abdomen and pelvis using intraven ous contrast (100 mL Isovue-300). Arterial and venous phase images were obtained. Coronal and sagitta l reformatted images were obtained. All CT scans at this facility use dose modulation, iterative reconstruction, and/or weight-based dosi ng when appropriate to reduce radiation dose to as low as reasonably achievable. FINDINGS: Lung bases: Coronary artery atherosclerosis is present. Heart appears mildly enlarged. Pro sthetic aortic valve present. Patchy opacity in both lower lobes and inferior left upper lobe present . Small calcified granuloma in the left lower lobe is present. Liver: Multiple small rounded hypodensities in the liver are present suggestive of cysts versus hamar asha measuring up to 1.5 cm. Liver appears decreased in size. Gallbladder/biliary: Appears unremarkable Pancreas: Unremarkable. No evidence of ductal enlargement. Spleen: There is a 3.8 cm mildly heterogeneous lesion in the spleen nearly isodense to adjacent splen ic parenchyma on venous images. Adrenals: Unremarkable. Kidneys and ureters: Multiple tiny cysts in both kidneys are present. There is a 4.4 cm left renal pe ripelvic cyst. No evidence of hydronephrosis. A 3 mm calcific density in the left renal midpole is rhodes ggestive of a renal stone versus vascular calcification. Bladder: Unremarkable. Pelvic organs: Prostate appears enlarged. Bowel: No evidence of active GI bleeding. Changes of partial colectomy noted with right lower quadran t ileostomy. Colonic diverticula are present. There is contrast in the colon from prior study. No ace dence of bowel obstruction. No bowel wall thickening. Vasculature: Aortoiliac atherosclerosis is present. 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 A few venous collaterals near the superior mesenteric vein are noted. Peritoneum: No free air. There is a small amount of low attenuating ascites. Lymph nodes: Unremarkable. Soft tissues: Unremarkable. Bones: Degenerative changes of the lumbar spine noted. IMPRESSION: 1. Patchy opacities in both lower lobes which may represent atelectasis versus infiltrat es such as pneumonia. 2. No evidence for an acute process within the abdomen or pelvis. 3. Small amount of ascites. 4. Indeterminate splenic lesion which can be followed up as appropriate. 5. Few additional incidental findings as above. Electronically signed by: Robert Escobar MD 01/09/2019 10:44 PM UX DEVELOPER Due to temporary technical issues with the PACS/Fluency reporting system, reports are being signed by the in house radiologist as a courtesy to ensure prompt reporting. The interpreting radiologist is f ully responsible for the content of the report.
== END 2019-01-10 01:20 | disposition short-term general hospital (02) ==
LOC: ER 17:01
PROC: 30233N1 Transfusion of Nonautologous Red Blood Cells into Peripheral Vein, Percutaneous Approach (ICD-10-PCS; principal; 2019-01-10)
DX: D64.9 Anemia, unspecified (principal); N39.0 Urinary tract infection, site not specified; T81.41XA Infection following a procedure, superficial incisional surgical site, initial encounter; I10 Essential (primary) hypertension; Z85.038 Personal history of other malignant neoplasm of large intestine; Z98.890 Other specified postprocedural states
CPT/HCPCS: 96365; 93005; 87040 ×2; 87070; 85025; 36415; 86900; 86850; 87205; 85610; 86901; 80076; 85730; 87077 ×3; 87186 ×3; 74177; 71045; 36430 ×2; 99285; Q9967; P9016 ×2

== ENCOUNTER 2019-03-14 17:59 | Inpatient (IN) | payer OTHER ==
[2019-03-14 18:43] LABS: Arterial Blood Carboxyhemoglob 1.5 % (0-1.5); Blood Gas Oxyhemoglobin 92.3 % (94-97); Blood O2 Saturation 94.5 % (92-98.5)
[2019-03-14 18:59] LABS: Absolute Lymphocytes (CBC) 0.9 K/uL (0.7-4.9); Absolute Monocytes 0.6 K/uL (0.1-1.3); Absolute Neutrophil 20.9 K/uL (1.8-8.0); Basophils % 0.4 % (0-1.3); Eosinophils % 0.1 % (0-4.4); Hematocrit 31.2 % (39.6-49.0); Lymphocytes % 4.1 % (15.3-44.8); MPV 8.5 fL (7.6-11.3); Monocytes % 2.7 % (3.3-12.3); RBC Red Blood Cell Count 3.09 M/uL (4.33-5.43)
--- NOTE | 2019-03-14 19:04 | RAD REPORT ---
EXAM DESCRIPTION: RAD - Chest Single View - 03/14/2019 6:52 pm CLINICAL HISTORY: COUGH Chest pain. COMPARISON: Chest Single View dated 01/09/2019; Chest Single View dated 12/04/2018; Chest Single View dated 12/03/2018; Chest Single View dated 12/02/2018 FINDINGS: Portable technique limits examination quality. Chronic interstitial lung markings are noted with reduced lung volumes. Ill-defined opacity is seen i n the medial right lung base, suspicious for superimposed pneumonia. The heart is moderately enlarged in size. No displaced fractures. IMPRESSION: Developing medial right lung base pneumonia suspected.
[2019-03-14 19:07] LABS: Protime INR 1.19
[2019-03-14] MEDS ORDERED: PIPER/TAZO/NS 3.375gm 3.375 GM/100 ML BAG ONE (19:19)
[2019-03-14 19:24] LABS: Albumin 2.8 g/dL (3.4-5.0); Bilirubin Direct 0.3 mg/dL (0-0.2); Bilirubin Total 0.8 mg/dL (0.2-1.0); CKMB Creatine Kinase MB 1.9 ng/mL (0.3-3.6); Protein, Total 6.4 g/dL (6.4-8.2); Thyroid Stimulating Hormone 2.02 uIU/mL (0.360-3.740); Troponin (Emerg Dept Use Only) 0.34 ng/mL (0.0-0.045)
--- NOTE | 2019-03-14 19:33 | ER ---
Nurse's Notes [facility] Name: Gautam Ramirez Jr Age: 78 yrs Sex: Male : 1940 Arrival Date: 03/14/2019 Time: 18:01 Bed 25 Private MD: Jaspal Ramos T Diagnosis: Sepsis, unspecified organism;Pneumonia, unspecified organism Presentation: 03/14 18:22 Presenting complaint: Patient states: cough for months, fever started today Tmax 100.4 sv per [place] [facility]. Transition of care: patient was not received from another setting of care. Onset of symptoms was March 14, 2019. Care prior to arrival: None. 18:22 Method Of Arrival: Wheelchair sv 18:22 Acuity: BENIGNO 2 sv 18:30 Risk Assessment: Do you want to hurt yourself or someone else? Patient reports no ca1 desire to harm self or others. 18:30 Initial Sepsis Screen: Does the patient meet any 2 criteria? RR > 20 per min. HR > 90 ca1 bpm. Yes Does the patient have a suspected source of infection? Yes: Productive cough/pneumonia. Historical: - Allergies: 18:23 No Known Allergies; sv - Home Meds: 20:47 Advair HFA 115-21 mcg/actuation inhalation HFAA 2 puffs 2 times per day [Active]; ca1 allopurinol 300 mg Oral tab 1 tab once daily [Active]; amiodarone 200 mg Oral tab 1 tab once daily [Active]; apixaban oral 2.5mg oral 1 tab 2 times per day [Active]; - PMHx: 18:23 CAD; Hyperlipidemia; Hypertension; sv - PSHx: 18:23 Angioplasty; colon surgery; stents; sv - Immunization history:: Pneumococcal vaccine is up to date, Flu vaccine is up to date. - Social history:: Smoking status: Patient/guardian denies using tobacco. - Ebola Screening: : No symptoms or risks identified at this time. Screenin:30 Abuse screen: Denies threats or abuse. Denies injuries from another. Nutritional ca1 screening: No deficits noted. Tuberculosis screening: No symptoms or risk factors identified. Fall Risk Fall in past 12 months (25 points). IV access (20 points). Ambulatory Aid- Crutches/Cane/Walker (15 pts). Gait- Weak (10 pts.). Assessment: 18:30 General: Appears in no apparent distress. ill, slender, Behavior is calm, cooperative, ca1 appropriate for age, Reports chills for 0-12 hours, fever for 0-12 hours. 18:30 Pain: Denies pain. Neuro: Level of Consciousness is awake, alert, obeys commands, ca1 Oriented to person, place, time, situation. Cardiovascular: Heart tones S1 S2 present Capillary refill < 3 seconds Patient's skin is warm and dry. Rhythm is sinus tachycardia. Respiratory: Reports cough that is productive, since for a about a week now. Went to the doctor yesterday and was diagnosed with bronchitis pinkish sputum Airway is patent Respiratory effort is even, unlabored, Respiratory pattern is regular, symmetrical, Breath sounds are clear bilaterally. GI: Abdomen is flat, non-distended, Ileostomy site is clean and dry. Ostomy appliance is intact. Bowel sounds present X 4 quads. Abd is soft and non tender X 4 quads. : No deficits noted. No signs and/or symptoms were reported regarding the genitourinary system. EENT: Reports nasal congestion. Derm: Derm: Skin is fragile, is thin, Skin is pink, warm \T\ dry. Musculoskeletal: Circulation, motion, and sensation intact. Capillary refill < 3 seconds. 19:25 Reassessment: Patient appears in no apparent distress at this time. Patient and/or ca1 family updated on plan of care and expected duration. Pain level reassessed. Patient is alert, oriented x 3, equal unlabored respirations, skin warm/dry/pink. 20:37 Reassessment: Patient appears in no apparent distress at this time. Patient and/or ca1 family updated on plan of care and expected duration. Pain level reassessed. Patient is alert, oriented x 3, equal unlabored respirations, skin warm/dry/pink. 20:58 Reassessment: BP is low, informed CAR García with VO of NS 500cc bolus. ca1 21:30 Reassessment: Patient appears in no apparent distress at this time. Patient and/or ca1 family updated on plan of care and expected duration. Pain level reassessed. Patient is alert, oriented x 3, equal unlabored respirations, skin warm/dry/pink. 21:40 Reassessment: BP still low after 500cc bolus of NS. Notified Raquel, PHYSICIAN OFFICE NURSE. ca1 22:05 Reassessment: Called Dr. Alcantara regarding pt's BP and IVF given. Verbal orders: Stop ca1 ongoing NS 1L at 125ml/hr, give 1L NS bolus, resume NS 1L at 125ml/hr after the liter bolus. And pt will be admitted to ICU. 22:28 Reassessment: Patient appears in no apparent distress at this time. Patient and/or ca1 family updated on plan of care and expected duration. Pain level reassessed. Patient is alert, oriented x 3, equal unlabored respirations, skin warm/dry/pink. 23:04 Reassessment: Notified Dr. Alcantara of pt BP of 92/60. VO of NS 500cc bolus. ca1 23:04 Reassessment: Eyes closed. Not in respiratory distress. Equal and unlabored breathing. ca1 Skin dry, warm and pink. 23:20 Reassessment: Called ICU for report. Nurse will call back in 10 minutes. ca1 23:41 Reassessment: Patient appears in no apparent distress at this time. Patient is alert, ca1 oriented x 3, equal unlabored respirations, skin warm/dry/pink. Vital Signs: 18:23 BP 96 / 55; Pulse 118; Resp 20; Temp 99.4; Pulse Ox 91% ; Weight 69.85 kg; Height 6 ft. sv 0 in. (182.88 cm); 19:21 BP 99 / 61; Pulse 109; Resp 24 S; Pulse Ox 98% on 2 lpm NC; ca1 20:15 BP 100 / 61; Pulse 106; Resp 22 S; Temp 97.9(O); Pulse Ox 98% on 2 lpm NC; ca1 20:37 BP 90 / 58; Pulse 104; Resp 21 S; Pulse Ox 98% on 2 lpm NC; ca1 20:57 BP 86 / 53; Pulse 102; Resp 22 S; Pulse Ox 98% on 2 lpm NC; ca1 21:18 BP 87 / 50; Pulse 101; Resp 24; Pulse Ox 100% on 2 lpm NC; ca1 21:30 BP 90 / 52; Pulse 98; Resp 22; Pulse Ox 100% on 2 lpm NC; ca1 22:00 BP 81 / 52; Pulse 94; Resp 23; Pulse Ox 100% on 2 lpm NC; ca1 22:15 BP 81 / 51; Pulse 93; Resp 24; Pulse Ox 100% on 2 lpm NC; ca1 22:28 BP 85 / 56; Pulse 94; Resp 21; Pulse Ox 100% on 2 lpm NC; ca1 22:31 BP 83 / 61; Pulse 94; Resp 24; Pulse Ox 100% on 2 lpm NC; ca1 22:45 BP 92 / 60; Pulse 93; Resp 24; Pulse Ox 100% on 2 lpm NC; ca1 23:00 BP 83 / 55; Pulse 92; Resp 26; Pulse Ox 99% on 2 lpm NC; ca1 23:15 BP 87 / 56; Pulse 90; Resp 24; Pulse Ox 100% on 2 lpm NC; ca1 23:32 BP 89 / 57; Pulse 91; Resp 21; Temp 99(O); Pulse Ox 99% 2 lpm ; ca1 18:23 Body Mass Index 20.88 (69.85 kg, 182.88 cm) sv 18:23 Placed on O2 \T\ 2L per NC. sv ED Course: 18:01 Patient arrived in ED. as 18:01 Jaspal Ramos MD is Private Physician. as 18:22 Triage completed. sv 18:23 Arm band placed on. sv 18:25 Marta Gonzales, HERO is Primary Nurse. ca1 18:26 Raquel Wynne FNP-C is PHCP. snw 18:26 Arsen Riley MD is Attending Physician. snw 18:30 Patient has correct armband on for positive identification. Placed in gown. Bed in low ca1 position. Call light in reach. Side rails up X2. meal cooker on. Pulse ox on. NIBP on. Warm blanket given. 18:30 Inserted saline lock: 20 gauge in left antecubital area, using aseptic technique. Blood ca1 collected. 18:35 Initial lab(s) drawn, by me, sent to lab. First set of blood cultures drawn. ca1 18:51 Chest Single View XRAY In Process Unspecified. EDMS 18:55 Second set of blood cultures drawn by me. ca1 19:31 Buddy Alcantara MD is Hospitalizing Provider. snw 23:19 No provider procedures requiring assistance completed. Patient admitted, IV remains in ca1 place. 23:41 Inserted saline lock: 18 gauge in right antecubital area, using aseptic technique. ca1 Administered Medications: 16:15 Drug: NS 0.9% 1000 ml Route: IV; Rate: 125 ml/hr; Site: left antecubital; ca1 20:14 Follow up: IV Status: Infusion continued upon admission ca1 19:10 Drug: Zosyn 3.375 grams Route: IVPB; Infused Over: 60 mins; Site: left antecubital; ca1 20:25 Follow up: Response: No adverse reaction; IV Status: Completed infusion ca1 20:30 Drug: Phenergan 6.25 mg Route: IVP; Site: left antecubital; ca1 21:00 Follow up: Response: No adverse reaction; Nausea is decreased ca1 20:30 Drug: NS 0.9% 250 ml Route: IV; Rate: calculated rate; Site: left antecubital; ca1 21:00 Follow up: Response: No adverse reaction; IV Status: Completed infusion ca1 20:59 Drug: NS 0.9% 500 ml Route: IV; Rate: bolus; Site: left antecubital; ca1 21:59 Follow up: Response: No adverse reaction; IV Status: Completed infusion ca1 21:40 Drug: NS 0.9% 500 ml Route: IV; Rate: bolus; Site: left antecubital; ca1 22:11 Follow up: IV Status: Completed infusion ca1 22:12 Drug: NS 0.9% 1000 ml Route: IV; Rate: 1 bolus; Site: left antecubital; ca1 22:50 Follow up: IV Status: Completed infusion ca1 23:03 Drug: NS 0.9% 500 ml Route: IV; Rate: bolus; Site: left antecubital; ca1 23:32 Follow up: Response: No adverse reaction; IV Status: Completed infusion ca1 Point of Care Testing: Blood Glucose: 18:36 Blood Glucose: 129 mg/dL; lt1 Ranges: Intake: 23:15 IV: 2750ml (IV Fluid); Total: 2750ml. ca1 Output: 23:15 Urine: 220ml (Voided); Total: 220ml. ca1 Outcome: 19:32 Decision to Hospitalize by Provider. snw 23:41 Admitted to ICU accompanied by nurse, accompanied by tech, via stretcher, room #7, with ca1 oxygen, on monitor, with chart, Report called to Angie Mendez RN 23:41 Condition: stable 23:41 Instructed on the need for admit. 23:56 Patient left the ED. ea Signatures: Dispatcher [facility] Barbara Salas RN RN Raquel Jorge, AUTOMOTIVE DIAGNOSTIC TECHNICIAN-C AUTOMOTIVE DIAGNOSTIC TECHNICIAN-Csnw Kelley Herrmann Elena, RN HERO ea Marta Gonzales RN RN ca1 Kena Oliveira lt1 Corrections: (The following items were deleted from the chart) 18:23 18:22 Acuity: BENIGNO 3 sv sv 18:28 18:23 BP 96 / 55; Pulse 118bpm; Resp 20bpm; Pulse Ox 91%; Temp 99.4F; 69.85 kg; Height sv 6 ft. 0 in.; BMI: 20.8; sv 19:21 19:21 BP 99 / 61; Pulse 109bpm; Resp 24bpm; Spontaneous; Pulse Ox 98% RA; ca1 ca1 19:22 18:30 Respiratory: Reports cough that is productive, since for a about a week now. Went ca1 to the doctor yesterday and was diagnosed with bronchitis Airway is patent Respiratory effort is even, unlabored, Respiratory pattern is regular, symmetrical, Breath sounds are clear bilaterally. ca1 22:11 21:30 Reassessment: BP still low after 500cc bolus of NS. Notified CAR García ca1 ca1
--- NOTE | 2019-03-14 19:33 | EDPHYS ---
Physician Documentation [facility] Name: Gautam Ramirez Jr Age: 78 yrs Sex: Male : 1940 Arrival Date: 03/14/2019 Time: 18:01 Bed 25 Private MD: Jaspal Raoms T ED Physician Arsen Riley HPI: 03/14 20:43 This 78 yrs old Male presents to ER via Wheelchair with complaints of Cough. snw 20:43 The patient or guardian reports cough, described as moderate, with productive sputum, snw that is bloody. Onset: The symptoms/episode began/occurred suddenly. Severity of symptoms: At their worst the symptoms were moderate. Associated signs and symptoms: Pertinent positives: fever, malaise. The patient has experienced similar episodes in the past. The patient has been recently seen by a physician: the patient's primary care provider, Dr. Ramos yesterday, with similar presenting complaints, and apparently given a diagnosis of Bronchitis. Historical: - Allergies: 18:23 No Known Allergies; sv - Home Meds: 20:47 Advair HFA 115-21 mcg/actuation inhalation HFAA 2 puffs 2 times per day [Active]; ca1 allopurinol 300 mg Oral tab 1 tab once daily [Active]; amiodarone 200 mg Oral tab 1 tab once daily [Active]; apixaban oral 2.5mg oral 1 tab 2 times per day [Active]; - PMHx: 18:23 CAD; Hyperlipidemia; Hypertension; sv - PSHx: 18:23 Angioplasty; colon surgery; stents; sv - Immunization history:: Pneumococcal vaccine is up to date, Flu vaccine is up to date. - Social history:: Smoking status: Patient/guardian denies using tobacco. - Ebola Screening: : No symptoms or risks identified at this time. ROS: 20:43 Eyes: Negative for injury, pain, redness, and discharge, ENT: Negative for injury, snw pain, and discharge, Neck: Negative for injury, pain, and swelling, Cardiovascular: Negative for chest pain, palpitations, and edema. 20:43 Abdomen/GI: Negative for abdominal pain, nausea, vomiting, diarrhea, and constipation, Back: Negative for injury and pain, : Negative for injury, bleeding, discharge, and swelling, MS/Extremity: Negative for injury and deformity, Skin: Negative for injury, rash, and discoloration, Neuro: Negative for headache, weakness, numbness, tingling, and seizure, Psych: Negative for depression, anxiety, suicide ideation, homicidal ideation, and hallucinations. 20:43 Constitutional: Positive for body aches, fatigue, fever, malaise. 20:43 Respiratory: Positive for cough, hemoptysis, shortness of breath, at rest. Exam: 20:41 Head/Face: Normocephalic, atraumatic. Eyes: Pupils equal round and reactive to light, snw extra-ocular motions intact. Lids and lashes normal. Conjunctiva and sclera are non-icteric and not injected. Cornea within normal limits. Periorbital areas with no swelling, redness, or edema. ENT: Nares patent. No nasal discharge, no septal abnormalities noted. Tympanic membranes are normal and external auditory canals are clear. Oropharynx with no redness, swelling, or masses, exudates, or evidence of obstruction, uvula midline. Mucous membranes moist. Neck: Trachea midline, no thyromegaly or masses palpated, and no cervical lymphadenopathy. Supple, full range of motion without nuchal rigidity, or vertebral point tenderness. No Meningismus. Chest/axilla: Normal chest wall appearance and motion. Nontender with no deformity. No lesions are appreciated. 20:41 Abdomen/GI: Soft, non-tender, with normal bowel sounds. No distension or tympany. No guarding or rebound. No evidence of tenderness throughout. Back: No spinal tenderness. No costovertebral tenderness. Full range of motion. MS/ Extremity: Pulses equal, no cyanosis. Neurovascular intact. Full, normal range of motion. Neuro: Awake and alert, GCS 15, oriented to person, place, time, and situation. Cranial nerves II-XII grossly intact. Motor strength 5/5 in all extremities. Sensory grossly intact. Cerebellar exam normal. Normal gait. Psych: Awake, alert, with orientation to person, place and time. Behavior, mood, and affect are within normal limits. 20:41 Constitutional: The patient appears alert, awake, frail, lethargic, pale. 20:41 Cardiovascular: Rate: tachycardic, Rhythm: regular, Pulses: no pulse deficits are appreciated, Heart sounds: normal. 20:41 Respiratory: the patient does not display signs of respiratory distress, Respirations: shallow respirations, tachypnea, that is mild, Breath sounds: bronchial sounds, decreased breath sounds, that are moderate. 20:41 Skin: Appearance: Color: pale, Temperature: cool, Moisture: dry. Vital Signs: 18:23 BP 96 / 55; Pulse 118; Resp 20; Temp 99.4; Pulse Ox 91% ; Weight 69.85 kg; Height 6 ft. sv 0 in. (182.88 cm); 19:21 BP 99 / 61; Pulse 109; Resp 24 S; Pulse Ox 98% on 2 lpm NC; ca1 20:15 BP 100 / 61; Pulse 106; Resp 22 S; Temp 97.9(O); Pulse Ox 98% on 2 lpm NC; ca1 20:37 BP 90 / 58; Pulse 104; Resp 21 S; Pulse Ox 98% on 2 lpm NC; ca1 20:57 BP 86 / 53; Pulse 102; Resp 22 S; Pulse Ox 98% on 2 lpm NC; ca1 21:18 BP 87 / 50; Pulse 101; Resp 24; Pulse Ox 100% on 2 lpm NC; ca1 21:30 BP 90 / 52; Pulse 98; Resp 22; Pulse Ox 100% on 2 lpm NC; ca1 22:00 BP 81 / 52; Pulse 94; Resp 23; Pulse Ox 100% on 2 lpm NC; ca1 22:15 BP 81 / 51; Pulse 93; Resp 24; Pulse Ox 100% on 2 lpm NC; ca1 22:28 BP 85 / 56; Pulse 94; Resp 21; Pulse Ox 100% on 2 lpm NC; ca1 22:31 BP 83 / 61; Pulse 94; Resp 24; Pulse Ox 100% on 2 lpm NC; ca1 22:45 BP 92 / 60; Pulse 93; Resp 24; Pulse Ox 100% on 2 lpm NC; ca1 23:00 BP 83 / 55; Pulse 92; Resp 26; Pulse Ox 99% on 2 lpm NC; ca1 23:15 BP 87 / 56; Pulse 90; Resp 24; Pulse Ox 100% on 2 lpm NC; ca1 23:32 BP 89 / 57; Pulse 91; Resp 21; Temp 99(O); Pulse Ox 99% 2 lpm ; ca1 18:23 Body Mass Index 20.88 (69.85 kg, 182.88 cm) sv 18:23 Placed on O2 \T\ 2L per NC. sv MDM: 18:26 Patient medically screened. snw 19:32 Data reviewed: vital signs, nurses notes. Data interpreted: Pulse oximetry: on room air snw is 91 %. Interpretation: hypoxia. Plan: O2 by NC applied. Counseling: I had a detailed discussion with the patient and/or guardian regarding: the historical points, exam findings, and any diagnostic results supporting the discharge/admit diagnosis, lab results, radiology results, the need for further work-up and treatment in the hospital. Physician consultation: Buddy Alcantara MD was called at 19:33, was contacted at 19:33, regarding admission, to the telemetry unit. and will see patient in ED, shortly. 03/14 18:25 Order name: Basic Metabolic Panel; Complete Time: 19:27 snw 03/14 18:25 Order name: Blood Culture Adult (2) snw 03/14 18:25 Order name: CBC with Diff; Complete Time: 19:41 snw 03/14 18:25 Order name: Ckmb; Complete Time: 19:27 snw 03/14 18:25 Order name: CPK; Complete Time: 19:27 snw 03/14 18:25 Order name: Lactate; Complete Time: 19:14 snw 03/14 18:25 Order name: LFT's; Complete Time: 19:27 snw 03/14 18:25 Order name: Lipase; Complete Time: 19:27 snw 03/14 18:25 Order name: Procalcitonin; Complete Time: 19:27 snw 03/14 18:25 Order name: Protime (+inr); Complete Time: 19:44 snw 03/14 18:25 Order name: Ptt, Activated; Complete Time: 19:44 snw 03/14 18:25 Order name: Troponin (emerg Dept Use Only); Complete Time: 19:27 snw 03/14 18:25 Order name: ABG; Complete Time: 19:08 snw 03/14 18:27 Order name: TS; Complete Time: 20:17 snw 03/14 18:25 Order name: Chest Single View XRAY; Complete Time: 19:06 snw 03/14 18:25 Order name: Accucheck; Complete Time: 18:37 snw 03/14 18:25 Order name: Cardiac monitoring; Complete Time: 18:33 snw 03/14 18:27 Order name: TSH; Complete Time: 19:27 snw 03/14 18:40 Order name: Glucose, Ancillary Testing; Complete Time: 18:41 EDMS 03/14 19:05 Order name: Manual Differential; Complete Time: 19:41 EDMS 03/14 20:17 Order name: Urine Dipstick--Ancillary (enter results); Complete Time: 20:26 cm6 03/14 22:13 Order name: Lactate Sepsis 2 HR Follow-up; Complete Time: 22:18 EDMS 03/14 18:25 Order name: EKG - Nurse/Tech; Complete Time: 18:51 snw 03/14 18:25 Order name: IV Saline Lock - Large Bore; Complete Time: 18:50 snw 03/14 18:25 Order name: Labs collected and sent; Complete Time: 18:50 snw 03/14 18:25 Order name: O2 Per Protocol; Complete Time: 18:37 snw 03/14 18:25 Order name: O2 Sat Monitoring; Complete Time: 18:37 snw 03/14 18:25 Order name: Urine Dipstick-Ancillary (obtain specimen); Complete Time: 20:12 snw Administered Medications: 16:15 Drug: NS 0.9% 1000 ml Route: IV; Rate: 125 ml/hr; Site: left antecubital; ca1 20:14 Follow up: IV Status: Infusion continued upon admission ca1 19:10 Drug: Zosyn 3.375 grams Route: IVPB; Infused Over: 60 mins; Site: left antecubital; ca1 20:25 Follow up: Response: No adverse reaction; IV Status: Completed infusion ca1 20:30 Drug: Phenergan 6.25 mg Route: IVP; Site: left antecubital; ca1 21:00 Follow up: Response: No adverse reaction; Nausea is decreased ca1 20:30 Drug: NS 0.9% 250 ml Route: IV; Rate: calculated rate; Site: left antecubital; ca1 21:00 Follow up: Response: No adverse reaction; IV Status: Completed infusion ca1 20:59 Drug: NS 0.9% 500 ml Route: IV; Rate: bolus; Site: left antecubital; ca1 21:59 Follow up: Response: No adverse reaction; IV Status: Completed infusion ca1 21:40 Drug: NS 0.9% 500 ml Route: IV; Rate: bolus; Site: left antecubital; ca1 22:11 Follow up: IV Status: Completed infusion ca1 22:12 Drug: NS 0.9% 1000 ml Route: IV; Rate: 1 bolus; Site: left antecubital; ca1 22:50 Follow up: IV Status: Completed infusion ca1 23:03 Drug: NS 0.9% 500 ml Route: IV; Rate: bolus; Site: left antecubital; ca1 23:32 Follow up: Response: No adverse reaction; IV Status: Completed infusion ca1 Point of Care Testing: Blood Glucose: 18:36 Blood Glucose: 129 mg/dL; lt1 Ranges: Critical Glucose Levels:Adult <50 mg/dl or >400 mg/dl <40 mg/dl or >180 mg/dl Disposition: 03/15 22:56 Co-signature as Attending Physician, Arsen Riley MD. rn Disposition: 03/14/19 19:32 Hospitalization ordered by Buddy Alcantara for Inpatient Admission. Preliminary diagnosis are Sepsis, unspecified organism, Pneumonia, unspecified organism. - Bed requested for Intensive Care Unit. - Status is Inpatient Admission. ea - Condition is Fair. - Problem is new. - Symptoms have worsened. UTI on Admission? No Critical care time excluding procedures: 03/14 22:30 Critical care time: Bedside Care: 10 minutes, Consultation: 20 minutes, Family snw Intervention: 5 minutes. Total time: 35 minutes Signatures: Dispatcher [employer] EDBarbara Nicole RN RN sv Therrien, Shelly, WIND TECHNICIAN-C WIND TECHNICIAN-Csnw Arsen Riley MD MD rn Garcia, Cindy, RN RN cg Antunez, Elena, RN RN ea Acob, Cheryl RN RN ca1 Corrections: (The following items were deleted from the chart) 20:23 19:32 Hospitalization Ordered by Buddy Alcantara MD for Inpatient Admission. Preliminary cg diagnosis is Sepsis, unspecified organism; Pneumonia, unspecified organism. Bed requested for Telemetry/MedSurg (Inpatient). Status is Inpatient Admission. Condition is Fair. Problem is new. Symptoms have worsened. UTI on Admission? No. snw 22:37 20:23 03/14/2019 19:32 Hospitalization Ordered by Buddy Alcantara MD for Inpatient cg Admission. Preliminary diagnosis is Sepsis, unspecified organism; Pneumonia, unspecified organism. Bed requested for Telemetry/MedSurg (Inpatient). Status is Inpatient Admission. Condition is Fair. Problem is new. Symptoms have worsened. UTI on Admission? No. cg 22:38 22:37 03/14/2019 19:32 Hospitalization Ordered by Buddy Alcantara MD for Inpatient cg Admission. Preliminary diagnosis is Sepsis, unspecified organism; Pneumonia, unspecified organism. Bed requested for Intensive Care Unit. Status is Inpatient Admission. Condition is Fair. Problem is new. Symptoms have worsened. UTI on Admission? No. 23:56 22:38 03/14/2019 19:32 Hospitalization Ordered by Buddy Alcantara MD for Inpatient ea Admission. Preliminary diagnosis is Sepsis, unspecified organism; Pneumonia, unspecified organism. Bed requested for Intensive Care Unit. Status is Inpatient Admission. Condition is Fair. Problem is new. Symptoms have worsened. UTI on Admission? No. cg
[2019-03-14 19:38] LABS: Blood Morphology Comment NOTED (NOT SEEN); Platelet Estimate ADEQ
[2019-03-14] MEDS ORDERED: NA CHLORIDE 0.9% 1,000 ML ONE ×2 (19:38→22:18)
[2019-03-14 19:39] LABS: Anisocytosis 1+; Macrocytosis 1+
[2019-03-14] MEDS ORDERED: NA CHLORIDE 0.9% 250 ML ONE (19:45)
[2019-03-14] MEDS ORDERED: PROMETHAZINE 25 MG/ML VIAL ONE (19:45)
--- OUTSIDE RECORDS SUMMARY | 2019-03-14 19:50 | XMS REPORT | Clinical Summary ---
:1940 Author Organization [facility] Address [address] [place] [address] Care Team Providers Name Role Phone Paula [...] Not on file Results Not on fileafter 03/13/2018 Insurance Payer Benefit Plan / Subscriber ID Type Phone Address Group [employer] - MEDICARE [employer] MEDICARE HMO xxxxxxxx [phone] [address] [employer] [place] [address] (Home) [place] [address]
--- OUTSIDE RECORDS SUMMARY | 2019-03-14 19:50 | XMS REPORT | Clinical Summary ---
:1940 Author Organization [facility] Address [address] [place] [address] Care Team Providers Name Role Phone Jaspal Ramos MD Primary Care Provider Allergies No Known Allergies Medications Medication Sig Dispensed Refills Start Date End Date Status atorvastatin Take 40 mg by 0 08/14/2018 Active (LIPITOR) 40 MG mouth every tablet evening. allopurinol Take 300 mg by 1 08/08/2018 Active (ZYLOPRIM) 300 MG mouth daily. tablet pantoprazole Take 40 mg by 1 10/11/2018 Active (PROTONIX) 40 MG EC mouth daily. tablet aspirin (ECOTRIN) Take 81 mg by 0 Active 81 MG enteric mouth daily. coated tablet lisinopril Take 1 tablet 60 tablet 0 01/23/2019 Active (PRINIVIL,ZESTRIL) (2.5 mg total) 0 2.5 mg tablet by mouth 2 (two) times a day. levothyroxine Take 1 tablet 30 tablet 0 01/24/2019 Active (SYNTHROID, (50 mcg total) 0 LEVOXYL) 50 mcg by mouth daily. tablet isosorbide Take 0.5 15 tablet 0 01/24/2019 Active mononitrate (IMDUR) tablets (15 mg 0 30 MG 24 hr tablet total) by mouth every morning. zinc sulfate Take 1 capsule 30 capsule 0 01/24/2019 Active (ZINCATE) 220 (50) (220 mg total) 0 mg capsule by mouth daily. metoprolol tartrate TAKE 1/2 TABLET 3 08/21/2018 Discontinued (LOPRESSOR) 100 mg BY MOUTH 2 9 tablet TIMES EVERY DAY isosorbide Take 30 mg by 0 Discontinued mononitrate (IMDUR) mouth every 9 30 MG 24 hr tablet morning. SUPREP BOWEL PREP Take 2 Bottles 354 mL 0 11/13/2018 KIT 17.5-3.13-1.6 (354 mL total) 9 gram recon soln by mouth once for 1 dose. Take as directed by physician traMADol (ULTRAM) Take 1 tablet 30 tablet 0 11/26/2018 50 mg tablet (50 mg total) 9 by mouth every 6 (six) hours as needed for severe pain for up to 5 days. carvedilol (COREG) Take 1 tablet 60 tablet 0 01/23/2019 3.125 MG tablet (3.125 mg 9 total) by mouth 2 (two) times a day for 30 days. amIODarone Take 1 tablet 30 tablet 0 01/24/2019 (PACERONE) 200 MG (200 mg total) 9 tablet by mouth daily for 30 days. apixaban (ELIQUIS) Take 1 tablet 60 tablet 0 01/23/2019 2.5 mg tablet (2.5 mg total) 9 by mouth 2 (two) times a day for 30 days. sulfamethoxazole-tr Take 1 tablet 12 tablet 0 01/23/2019 imethoprim (BACTRIM by mouth every 9 DS) 800-160 mg per 12 (twelve) tablet hours for 6 days. metroNIDAZOLE Take 1 tablet 18 tablet 0 01/23/2019 (FLAGYL) 500 MG (500 mg total) 9 tablet by mouth 3 (three) times a day for 6 days. Active Problems Problem Noted Date Postoperative wound infection 01/12/2019 MRSA (methicillin resistant Staphylococcus aureus) infection 01/12/2019 Moderate protein-calorie malnutrition 01/11/2019 Anemia due to acute blood loss 01/10/2019 GI bleed 01/10/2019 Atrial fibrillation with RVR 01/10/2019 Acute kidney injury 01/10/2019 Acute systolic heart failure 01/10/2019 History of colon cancer 01/10/2019 CAD (coronary artery disease) 01/10/2019 Leukocytosis 01/10/2019 Acute respiratory insufficiency 01/10/2019 Colon cancer 11/21/2018 Encounters Date Type Specialty Care Team Description 01/23/2019 Patient Outreach Quality Tayler Howell RN 01/20/2019 Surgery Procedural JanaetLuis CV LEFT HEART CATH Cardiology MD Pieter LV GRAM WITH CORS [86075 (CPT)] 01/10/2019 - Hospital Encounter Neurosurgery Nayely Flood Anemia due to acute blood loss (Primary Dx); 01/23/2019 MD Joaquin Orozco; Coronary artery disease without angina pectoris, unspecified vessel or lesion type, unspecified whether [place] or transplanted heart; Pulmonary hypertension (HCC) 01/09/2019 Intake Access N/A 12/02/2018 Intake Access N/A 11/22/2018 Anesthesia Event General Surgery Kassidy Hansen, CRIMINAL INTELLIGENCE SPECIALIST 11/22/2018 Surgery General Surgery Jonn Mora DIAGNOSTIC MD [place] LAPAROSCOPY, REVISION OF ANASTOMOSIS, DRAINAGE OF HEMATOMA 11/21/2018 Anesthesia Event General Surgery Shanna Machado, MANAGER [employer] 11/21/2018 Surgery General Surgery Jonn Mora SINGLE [...] Mora MD 10/24/2018 Pre-Admit Testing Pre-Admission Jonn Mroa Preop testing Appointment Testing MD Toño (Primary Dx) 10/24/2018 Office Visit General Surgery Jonn Mora Malignant neoplasm MD Toño of ascending colon (HCC) (Primary Dx) after 03/13/2018 Family History Medical History Relation Name Comments [...] Vital Sign Reading Time Taken Blood Pressure 98/60 01/23/2019 11:44 AM CDT Pulse 87 01/23/2019 12:16 PM CDT Temperature 35.9 C (96.6 F) 01/23/2019 11:44 AM CDT Respiratory Rate 18 01/23/2019 12:16 PM CDT Oxygen Saturation 95% 01/23/2019 11:44 AM CDT Inhaled Oxygen Concentration - - Weight 70.5 kg (155 lb 6.8 oz) 01/10/2019 3:00 AM MAT TESTER Height 185.4 cm (6' 1") 01/10/2019 3:00 AM MAT TESTER Body Mass Index 20.51 01/10/2019 3:00 AM MAT TESTER Plan of Treatment Health Maintenance Due Date Last Done Comments SHINGLES VACCINES (#1) 1989 65+ PNEUMOCOCCAL VACCINE (1 of 2 - PCV13) 2004 PNEUMOCOCCAL POLYSACCHARIDE VACCINE AGE 65 AND OVER 2004 INFLUENZA VACCINE 06/12/2019 Procedures Procedure Name Priority Date/Time Associated Comments Diagnosis POC GLUCOSE Routine 01/23/2019 11:45 Results for this AM CDT procedure are in the results section. POC GLUCOSE Routine 01/23/2019 7:49 Results for this AM CDT procedure are in the results section. CBC HEMOGRAM Routine 01/23/2019 6:20 Results for this AM CDT procedure are in the results section. POC GLUCOSE Routine 01/22/2019 8:49 Results for this PM CDT procedure are in the results section. POC GLUCOSE Routine 01/22/2019 5:50 Results for this PM CDT procedure are in the results section. POC GLUCOSE Routine 01/22/2019 11:54 Results for this AM CDT procedure are in the results section. POC GLUCOSE Routine 01/22/2019 8:36 Results for this AM CDT procedure are in the results section. ESTIMATED GFR Routine 01/22/2019 5:00 Results for this AM CDT procedure are in the results section. PHOSPHORUS LEVEL Routine 01/22/2019 5:00 Results for this AM CDT procedure are in the results section. COMPREHENSIVE METABOLIC Routine 01/22/2019 5:00 Results for this PANEL AM CDT procedure are in the results section. MAGNESIUM LEVEL Routine 01/22/2019 5:00 Results for this AM CDT procedure are in the results section. B NATRIURETIC PEPTIDE Routine 01/22/2019 5:00 Results for this AM CDT procedure are in the results section. POC GLUCOSE Routine 01/21/2019 8:42 Results for this PM CDT procedure are in the results section. POC GLUCOSE Routine 01/21/2019 5:54 Results for this PM CDT procedure are in the results section. XR CHEST 1 VW PORTABLE Routine 01/21/2019 2:42 Results for this PM CDT procedure are in the results section. US DUPLEX VENOUS UPPER Routine 01/21/2019 2:27 Results for this EXTREMITY BILATERAL PM CDT procedure are in the results section. US DUPLEX VENOUS LOWER Routine 01/21/2019 2:03 Results for this EXTREMITY BILATERAL PM CDT procedure are in the results section. POC GLUCOSE Routine 01/21/2019 11:42 Results for this AM CDT procedure are in the results section. POC GLUCOSE Routine 01/21/2019 7:42 Results for this AM CDT procedure are in the results section. POC GLUCOSE Routine 01/20/2019 9:45 Results for this PM CDT procedure are in the results section. CV LEFT HEART CATH LV Routine 01/20/2019 9:02 Coronary artery Results for this GRAM WITH CORS AM CDT disease without procedure are in angina pectoris, the results unspecified vessel section. or lesion type, unspecified whether [place] or transplanted heart Pulmonary hypertension (HCC) ESTIMATED GFR Routine 01/20/2019 4:56 Results for this AM CDT procedure are in the results section. PROTHROMBIN TIME WITH Routine 01/20/2019 4:56 Results for this INR AM CDT procedure are in the results section. PARTIAL THROMBOPLASTIN Routine 01/20/2019 4:56 Results for this TIME (PTT) AM CDT procedure are in the results section. PHOSPHORUS LEVEL Routine 01/20/2019 4:56 Results for this AM CDT procedure are in the results section. MAGNESIUM LEVEL Routine 01/20/2019 4:56 Results for this AM CDT procedure are in the results section. HC COMPLETE BLD COUNT Routine 01/20/2019 4:56 Results for this W/AUTO DIFF AM CDT procedure are in the results section. COMPREHENSIVE METABOLIC Routine 01/20/2019 4:56 Results for this PANEL AM CDT procedure are in the results section. POC GLUCOSE Routine 01/19/2019 9:53 Results for this PM CDT procedure are in the results section. POC GLUCOSE Routine 01/19/2019 5:57 Results for this PM CDT procedure are in the results section. POC GLUCOSE Routine 01/19/2019 11:55 Results for this AM CDT procedure are in the results section. POC GLUCOSE Routine 01/19/2019 7:40 Results for this AM CDT procedure are in the results section. PROTHROMBIN TIME WITH Routine 01/19/2019 5:50 Results for this INR AM CDT procedure are in the results section. POC GLUCOSE Routine 01/18/2019 5:28 Results for this PM MAT TESTER procedure are in the results section. POC GLUCOSE Routine 01/18/2019 11:48 Results for this AM MAT TESTER procedure are in the results section. POC GLUCOSE Routine 01/18/2019 7:40 Results for this AM MAT TESTER procedure are in the results section. ESTIMATED GFR Routine 01/18/2019 4:52 Results for this AM MAT TESTER procedure are in the results section. PARTIAL THROMBOPLASTIN Routine 01/18/2019 4:52 Results for this TIME (PTT) AM MAT TESTER procedure are in the results section. PROTHROMBIN TIME WITH Routine 01/18/2019 4:52 Results for this INR AM MAT TESTER procedure are in the results section. COMPREHENSIVE METABOLIC Routine 01/18/2019 4:52 Results for this PANEL AM MAT TESTER procedure are in the results section. B NATRIURETIC PEPTIDE Routine 01/18/2019 4:52 Results for this AM MAT TESTER procedure are in the results section. POC GLUCOSE Routine 01/17/2019 9:31 Results for this PM MAT TESTER procedure are in the results section. HC COMPLETE BLD COUNT Routine 01/17/2019 4:40 Results for this W/AUTO DIFF AM MAT TESTER procedure are in the results section. ESTIMATED GFR Routine 01/17/2019 4:00 Results for this AM MAT TESTER procedure are in the results section. MAGNESIUM LEVEL Routine 01/17/2019 4:00 Results for this AM MAT TESTER procedure are in the results section. BASIC METABOLIC PANEL Routine 01/17/2019 4:00 Results for this AM MAT TESTER procedure are in the results section. CONSULT TO OSTOMY CARE Routine 01/16/2019 4:32 NURSE PM MAT TESTER ECHOCARDIOGRAM 2D Routine 01/16/2019 12:25 Results for this LIMITED PM MAT TESTER procedure are in the results section. B NATRIURETIC PEPTIDE Routine 01/16/2019 6:05 Results for this AM MAT TESTER procedure are in the results section. ESTIMATED GFR Routine 01/16/2019 4:00 Results for this AM MAT TESTER procedure are in the results section. BASIC METABOLIC PANEL Routine 01/16/2019 4:00 Results for this AM MAT TESTER procedure are in the results section. MAGNESIUM LEVEL Routine 01/16/2019 4:00 Results for this AM MAT TESTER procedure are in the results section. VANCOMYCIN LEVEL, TROUGH Routine 01/16/2019 4:00 Results for this AM MAT TESTER procedure are in the results section. POC GLUCOSE Routine 01/15/2019 5:53 Results for this PM MAT TESTER procedure are in the results section. POC GLUCOSE Routine 01/15/2019 12:02 Results for this PM MAT TESTER procedure are in the results section. ECG 12-LEAD Routine 01/15/2019 8:20 Results for this AM MAT TESTER procedure are in the results section. POC GLUCOSE Routine 01/15/2019 7:58 Results for this AM MAT TESTER procedure are in the results section. ESTIMATED GFR Routine 01/15/2019 5:10 Results for this AM MAT TESTER procedure are in the results section. MAGNESIUM LEVEL Routine 01/15/2019 5:10 Results for this AM MAT TESTER procedure are in the results section. BASIC METABOLIC PANEL Routine 01/15/2019 5:10 Results for this AM MAT TESTER procedure are in the results section. POC GLUCOSE Routine 01/14/2019 8:53 Results for this PM MAT TESTER procedure are in the results section. POC GLUCOSE Routine 01/14/2019 5:43 Results for this PM MAT TESTER procedure are in the results section. POC GLUCOSE Routine 01/14/2019 11:59 Results for this AM MAT TESTER procedure are in the results section. VANCOMYCIN LEVEL, TROUGH Routine 01/14/2019 11:05 Results for this AM MAT TESTER procedure are in the results section. GRAM STAIN Routine 01/14/2019 11:05 Results for this AM MAT TESTER procedure are in the results section. AEROBIC CULTURE Routine 01/14/2019 11:05 Results for this AM MAT TESTER procedure are in the results section. ANAEROBIC CULTURE Routine 01/14/2019 10:05 Results for this AM MAT TESTER procedure are in the results section. POC GLUCOSE Routine 01/14/2019 7:59 Results for this AM MAT TESTER procedure are in the results section. B NATRIURETIC PEPTIDE Routine 01/14/2019 5:00 Results for this AM MAT TESTER procedure are in the results section. HC COMPLETE BLD COUNT Routine 01/14/2019 5:00 Results for this W/AUTO DIFF AM MAT TESTER procedure are in the results section. ESTIMATED GFR Routine 01/14/2019 4:00 Results for this AM MAT TESTER procedure are in the results section. BASIC METABOLIC PANEL Routine 01/14/2019 4:00 Results for this AM MAT TESTER procedure are in the results section. HIV AG/AB COMBINATION Routine 01/14/2019 4:00 Results for this AM MAT TESTER procedure are in the results section. POC GLUCOSE Routine 01/13/2019 8:40 Results for this PM MAT TESTER procedure are in the results section. POC GLUCOSE Routine 01/13/2019 6:02 Results for this PM MAT TESTER procedure are in the results section. POC GLUCOSE Routine 01/13/2019 12:16 Results for this PM MAT TESTER procedure are in the results section. US CAROTID DUPLEX Routine 01/13/2019 9:45 Results for this BILATERAL AM MAT TESTER procedure are in the results section. POC GLUCOSE Routine 01/13/2019 7:51 Results for this AM MAT TESTER procedure are in the results section. ESTIMATED GFR Routine 01/13/2019 3:30 Results for this AM MAT TESTER procedure are in the results section. VITAMIN B12 LEVEL Routine 01/13/2019 3:30 Results for this AM MAT TESTER procedure are in the results section. TOTAL IRON BINDING Routine 01/13/2019 3:30 Results for this CAPACITY AM MAT TESTER procedure are in the results section. RETICULOCYTE COUNT Routine 01/13/2019 3:30 Results for this AM MAT TESTER procedure are in the results section. FOLATE LEVEL Routine 01/13/2019 3:30 Results for this AM MAT TESTER procedure are in the results section. PHOSPHORUS LEVEL Routine 01/13/2019 3:30 Results for this AM MAT TESTER procedure are in the results section. MAGNESIUM LEVEL Routine 01/13/2019 3:30 Results for this AM MAT TESTER procedure are in the results section. CBC WITH PLATELET AND Routine 01/13/2019 3:30 Results for this DIFFERENTIAL AM MAT TESTER procedure are in the results section. BASIC METABOLIC PANEL Routine 01/13/2019 3:30 Results for this AM MAT TESTER procedure are in the results section. POC GLUCOSE Routine 01/12/2019 8:54 Results for this PM MAT TESTER procedure are in the results section. ESTIMATED GFR Timed 01/12/2019 7:30 Results for this PM MAT TESTER procedure are in the results section. MAGNESIUM LEVEL Timed 01/12/2019 7:30 Results for this PM MAT TESTER procedure are in the results section. BASIC METABOLIC PANEL Timed 01/12/2019 7:30 Results for this PM MAT TESTER procedure are in the results section. POC GLUCOSE Routine 01/12/2019 12:13 Results for this PM MAT TESTER procedure are in the results section. POC GLUCOSE Routine 01/12/2019 8:05 Results for this AM MAT TESTER procedure are in the results section. ESTIMATED GFR Routine 01/12/2019 5:50 Results for this AM MAT TESTER procedure are in the results section. COMPREHENSIVE METABOLIC Routine 01/12/2019 5:50 Results for this PANEL AM MAT TESTER procedure are in the results section. HC COMPLETE BLD COUNT Routine 01/12/2019 5:50 Results for this W/AUTO DIFF AM MAT TESTER procedure are in the results section. T3, FREE Routine 01/12/2019 5:50 Results for this AM MAT TESTER procedure are in the results section. T4, FREE Routine 01/12/2019 5:50 Results for this AM MAT TESTER procedure are in the results section. THYROID STIMULATING Routine 01/12/2019 5:50 Results for this HORMONE AM MAT TESTER procedure are in the results section. CORTISOL LEVEL, AM Routine 01/12/2019 5:50 Results for this AM MAT TESTER procedure are in the results section. POC GLUCOSE Routine 01/11/2019 9:13 Results for this PM MAT TESTER procedure are in the results section. POC GLUCOSE Routine 01/11/2019 4:58 Results for this PM MAT TESTER procedure are in the results section. THYROID PEROXIDASE Routine 01/11/2019 1:10 Results for this ANTIBODY PM MAT TESTER procedure are in the results section. POC GLUCOSE Routine 01/11/2019 12:25 Results for this PM MAT TESTER procedure are in the results section. ECG 12-LEAD Routine 01/11/2019 11:15 Results for this AM MAT TESTER procedure are in the results section. POC GLUCOSE Routine 01/11/2019 7:45 Results for this AM MAT TESTER procedure are in the results section. ESTIMATED GFR Routine 01/11/2019 3:30 Results for this AM MAT TESTER procedure are in the results section. IONIZED CALCIUM Routine 01/11/2019 3:30 Results for this AM MAT TESTER procedure are in the results section. PHOSPHORUS LEVEL Routine 01/11/2019 3:30 Results for this AM MAT TESTER procedure are in the results section. MAGNESIUM LEVEL Routine 01/11/2019 3:30 Results for this AM MAT TESTER procedure are in the results section. HEPATIC FUNCTION PANEL Routine 01/11/2019 3:30 Results for this AM MAT TESTER procedure are in the results section. HC COMPLETE BLD COUNT Routine 01/11/2019 3:30 Results for this W/AUTO DIFF AM MAT TESTER procedure are in the results section. BASIC METABOLIC PANEL Routine 01/11/2019 3:30 Results for this AM MAT TESTER procedure are in the results section. POC GLUCOSE Routine 01/11/2019 1:06 Results for this AM MAT TESTER procedure are in the results section. POC GLUCOSE Routine 01/10/2019 8:35 Results for this PM MAT TESTER procedure are in the results section. TROPONIN Timed 01/10/2019 8:10 Results for this PM MAT TESTER procedure are in the results section. HEMOGLOBIN & HEMATOCRIT Timed 01/10/2019 8:10 Results for this PM MAT TESTER procedure are in the results section. POC GLUCOSE Routine 01/10/2019 5:19 Results for this PM MAT TESTER procedure are in the results section. THYROID STIMULATING Routine 01/10/2019 5:16 Results for this HORMONE PM MAT TESTER procedure are in the results section. HEPATITIS ACUTE PANEL Routine 01/10/2019 5:16 Results for this PM MAT TESTER procedure are in the results section. T4 Routine 01/10/2019 5:16 Results for this PM MAT TESTER procedure are in the results section. CONSULT TO OSTOMY CARE Routine 01/10/2019 4:47 NURSE PM MAT TESTER TROPONIN Routine 01/10/2019 1:06 Results for this PM MAT TESTER procedure are in the results section. HEMOGLOBIN & HEMATOCRIT STAT 01/10/2019 12:15 Results for this PM MAT TESTER procedure are in the results section. LACTIC ACID LEVEL, Timed 01/10/2019 12:15 Results for this SEPSIS - NOW AND REPEAT PM MAT TESTER procedure are in 2X EVERY 3 HOURS the results section. CREATININE LEVEL, URINE, Routine 01/10/2019 12:12 Results for this RANDOM PM MAT TESTER procedure are in the results section. SODIUM LEVEL, URINE, Routine 01/10/2019 12:12 Results for this RANDOM PM MAT TESTER procedure are in the results section. POC GLUCOSE Routine 01/10/2019 12:01 Results for this PM MAT TESTER procedure are in the results section. ECG 12-LEAD Routine 01/10/2019 11:33 Results for this AM MAT TESTER procedure are in the results section. CT HEAD WO CONTRAST STAT 01/10/2019 11:23 Results for this AM MAT TESTER procedure are in the results section. CT ABDOMEN PELVIS WO STAT 01/10/2019 11:23 Results for this CONTRAST AM MAT TESTER procedure are in the results section. XR PICC CHEST PORTABLE Routine 01/10/2019 11:00 [place] Results for this AM MAT TESTER procedure are in the results section. HC CATH DUAL LUMEN PICC Routine 01/10/2019 9:58 Results for this AM MAT TESTER procedure are in the results section. HC US GUIDED VASCULAR Routine 01/10/2019 9:58 Results for this ACCESS AM MAT TESTER procedure are in the results section. HC CVL PICC INSERT 5 YRS Routine 01/10/2019 9:58 Results for this OR > W/O IMG GUID AM MAT TESTER procedure are in the results section. LACTIC ACID LEVEL, Timed 01/10/2019 9:14 Results for this SEPSIS - NOW AND REPEAT AM MAT TESTER procedure are in 2X EVERY 3 HOURS the results section. POC GLUCOSE Routine 01/10/2019 8:33 Results for this AM MAT TESTER procedure are in the results section. URINE CULTURE Routine 01/10/2019 7:31 Results for this AM MAT TESTER procedure are in the results section. URINALYSIS SCREEN AND Routine 01/10/2019 7:24 Results for this MICROSCOPY, WITH REFLEX AM MAT TESTER procedure are in TO CULTURE the results section. XR ABDOMEN 1 VW PORTABLE Routine 01/10/2019 6:53 Results for this AM MAT TESTER procedure are in the results section. XR CHEST 1 VW PORTABLE STAT 01/10/2019 6:53 Results for this AM MAT TESTER procedure are in the results section. LACTIC ACID LEVEL, Timed 01/10/2019 6:45 Results for this SEPSIS - NOW AND REPEAT AM MAT TESTER procedure are in 2X EVERY 3 HOURS the results section. ECHOCARDIOGRAM 2D STAT 01/10/2019 6:28 Results for this COMPLETE W MMODE AM MAT TESTER procedure are in SPECTRAL COLOR DOPPLER the results (85758) section. POC GLUCOSE Routine 01/10/2019 4:27 Results for this AM MAT TESTER procedure are in the results section. ESTIMATED GFR STAT 01/10/2019 3:45 Results for this AM MAT TESTER procedure are in the results section. CREATINE KINASE, TOTAL STAT 01/10/2019 3:45 Results for this (CPK) AM MAT TESTER procedure are in the results section. TYPE AND SCREEN STAT 01/10/2019 3:45 Results for this AM MAT TESTER procedure are in the results section. B NATRIURETIC PEPTIDE STAT 01/10/2019 3:45 Results for this AM MAT TESTER procedure are in the results section. TROPONIN STAT 01/10/2019 3:45 Results for this AM MAT TESTER procedure are in the results section. PROTHROMBIN TIME WITH STAT 01/10/2019 3:45 Results for this INR AM MAT TESTER procedure are in the results section. PHOSPHORUS LEVEL STAT 01/10/2019 3:45 Results for this AM MAT TESTER procedure are in the results section. PARTIAL THROMBOPLASTIN STAT 01/10/2019 3:45 Results for this TIME (PTT) AM MAT TESTER procedure are in the results section. MAGNESIUM LEVEL STAT 01/10/2019 3:45 Results for this AM MAT TESTER procedure are in the results section. LIPASE LEVEL STAT 01/10/2019 3:45 Results for this AM MAT TESTER procedure are in the results section. LACTIC ACID LEVEL STAT 01/10/2019 3:45 Results for this AM MAT TESTER procedure are in the results section. IONIZED CALCIUM STAT 01/10/2019 3:45 Results for this AM MAT TESTER procedure are in the results section. HEPATIC FUNCTION PANEL STAT 01/10/2019 3:45 Results for this AM MAT TESTER procedure are in the results section. FIBRINOGEN STAT 01/10/2019 3:45 Results for this AM MAT TESTER procedure are in the results section. D-DIMER STAT 01/10/2019 3:45 Results for this AM MAT TESTER procedure are in the results section. COMPREHENSIVE METABOLIC STAT 01/10/2019 3:45 Results for this PANEL AM MAT TESTER procedure are in the results section. HC COMPLETE BLD COUNT STAT 01/10/2019 3:45 Results for this W/AUTO DIFF AM MAT TESTER procedure are in the results section. AMYLASE LEVEL STAT 01/10/2019 3:45 Results for this AM MAT TESTER procedure are in the results section. GASTROINTESTINAL PANEL Routine 01/10/2019 3:45 Results for this AM MAT TESTER procedure are in the results section. GRAM STAIN Routine 01/10/2019 3:45 Results for this AM MAT TESTER procedure are in the results section. ANAEROBIC CULTURE Routine 01/10/2019 3:45 Results for this AM MAT TESTER procedure are in the results section. AEROBIC CULTURE Routine 01/10/2019 3:45 Results for this AM MAT TESTER procedure are in the results section. OCCULT BLOOD, STOOL Routine 01/10/2019 3:45 Results for this AM MAT TESTER procedure are in the results section. BLOOD CULTURE, AEROBIC & Routine 01/10/2019 3:45 Results for this ANAEROBIC AM MAT TESTER procedure are in the results section. RESPIRATORY PATHOGEN Routine 01/10/2019 3:45 Results for this PANEL AM MAT TESTER procedure are in the results section. POC GLUCOSE Routine 01/10/2019 3:12 Results for this AM MAT TESTER procedure are in the results section. ECG 12-LEAD STAT 01/10/2019 2:51 Results for this AM MAT TESTER procedure are in the results section. ESTIMATED GFR Routine 11/26/2018 5:38 Results for this AM MAT TESTER procedure are in the results section. HEMOGLOBIN & HEMATOCRIT Routine 11/26/2018 5:38 Results for this AM MAT TESTER procedure are in the results section. BASIC METABOLIC PANEL Routine 11/26/2018 5:38 Results for this AM MAT TESTER procedure are in the results section. ESTIMATED GFR Routine 11/25/2018 9:03 Results for this AM MAT TESTER procedure are in the results section. BASIC METABOLIC PANEL Routine 11/25/2018 9:03 Results for this AM MAT TESTER procedure are in the results section. HC COMPLETE BLD COUNT Routine 11/25/2018 7:30 Results for this W/AUTO DIFF AM MAT TESTER procedure are in the results section. ESTIMATED GFR Routine 11/24/2018 4:05 Results for this AM MAT TESTER procedure are in the results section. PHOSPHORUS LEVEL Routine 11/24/2018 4:05 Results for this AM MAT TESTER procedure are in the results section. MAGNESIUM LEVEL Routine 11/24/2018 4:05 Results for this AM MAT TESTER procedure are in the results section. BASIC METABOLIC PANEL Routine 11/24/2018 4:05 Results for this AM MAT TESTER procedure are in the results section. HC COMPLETE BLD COUNT Routine 11/24/2018 4:05 Results for this W/AUTO DIFF AM MAT TESTER procedure are in the results section. HEMOGLOBIN & HEMATOCRIT Timed 11/23/2018 3:00 Results for this PM MAT TESTER procedure are in the results section. HC COMPLETE BLD COUNT Routine 11/23/2018 4:05 Results for this W/AUTO DIFF AM MAT TESTER procedure are in the results section. ESTIMATED GFR Routine 11/23/2018 4:00 Results for this AM MAT TESTER procedure are in the results section. PHOSPHORUS LEVEL Routine 11/23/2018 4:00 Results for this AM MAT TESTER procedure are in the results section. MAGNESIUM LEVEL Routine 11/23/2018 4:00 Results for this AM MAT TESTER procedure are in the results section. BASIC METABOLIC PANEL Routine 11/23/2018 4:00 Results for this AM MAT TESTER procedure are in the results section. HC COMPLETE BLD COUNT Timed 11/22/2018 9:15 Results for this W/AUTO DIFF PM MAT TESTER procedure are in the results section. ESTIMATED GFR Timed 11/22/2018 8:00 Results for this PM MAT TESTER procedure are in the results section. BASIC METABOLIC PANEL Timed 11/22/2018 8:00 Results for this PM MAT TESTER procedure are in the results section. SURGICAL PATHOLOGY Routine 11/22/2018 5:30 Results for this REQUEST PM MAT TESTER procedure are in the results section. TRANSFUSE RED BLOOD Routine 11/22/2018 5:20 CELLS PM MAT TESTER TRANSFUSE RED BLOOD STAT 11/22/2018 4:09 CELLS PM MAT TESTER SD AN EMERGENT Routine 11/22/2018 3:52 ENDOTRACHEAL AIRWAY PM MAT TESTER Procedure Note - Kassidy Hansen CRNA - 11/22/2018 3:52 PM MAT TESTER ANESTHESIA INTUBATION Date/Time: 11/22/2018 3:25 PM Performed by: Kassidy Hansen CRNA Authorized by: Felipe Trejo MD Location: OR Urgency: Emergent Difficult Airway: No Anesthesiologist: Rodrigo Oates MD Resident/CRIMINAL INTELLIGENCE SPECIALIST/AA: Kassidy Hansen CRNA Performed by: resident/CRIMINAL INTELLIGENCE SPECIALIST/AA Consent Cannot be Obtained Due to Urgency: [...] SUCCESSFULL SIGMOIDECTOMY, 11/22/2018 2:50 PM bleeding LAPAROSCOPIC MAT TESTER ESTIMATED GFR Timed 11/22/2018 12:15 PM Results for this MAT TESTER procedure are in the results section. HC COMPLETE BLD COUNT Timed 11/22/2018 12:15 PM Results for this W/AUTO DIFF MAT TESTER procedure are in the results section. PHOSPHORUS LEVEL Timed 11/22/2018 12:15 PM Results for this MAT TESTER procedure are in the results section. BASIC METABOLIC PANEL Timed 11/22/2018 12:15 PM Results for this MAT TESTER procedure are in the results section. ESTIMATED GFR Routine 11/22/2018 3:40 AM Results for this MAT TESTER procedure are in the results section. PHOSPHORUS LEVEL Routine 11/22/2018 3:40 AM Results for this MAT TESTER procedure are in the results section. MAGNESIUM LEVEL Routine 11/22/2018 3:40 AM Results for this MAT TESTER procedure are in the results section. BASIC METABOLIC PANEL Routine 11/22/2018 3:40 AM Results for this MAT TESTER procedure are in the results section. HC COMPLETE BLD COUNT Routine 11/22/2018 3:00 AM Results for this W/AUTO DIFF MAT TESTER procedure are in the results section. SURGICAL PATHOLOGY REQUEST Routine 11/21/2018 1:12 PM Results for this MAT TESTER procedure are in the results section. SD AN ELECTIVE Routine 11/21/2018 8:35 AM ENDOTRACHEAL AIRWAY MAT TESTER Procedure Note - Yaima Krause CRNA - 11/21/2018 8:35 AM MAT TESTER Airway Date/Time: 11/21/2018 8:02 AM Performed by: [...] easily. MAGNESIUM LEVEL STAT 11/21/2018 8:25 AM MAT TESTER IONIZED CALCIUM, ARTERIAL STAT 11/21/2018 8:25 AM MAT TESTER GLUCOSE LEVEL, SYRINGE STAT 11/21/2018 8:25 AM MAT TESTER HEMOGLOBIN, SYRINGE STAT 11/21/2018 8:25 AM MAT TESTER POTASSIUM, SYRINGE STAT 11/21/2018 8:25 AM MAT TESTER SODIUM LEVEL, SYRINGE STAT 11/21/2018 8:25 AM MAT TESTER ARTERIAL BLOOD GAS STAT 11/21/2018 8:25 AM MAT TESTER LACTIC ACID, SYRINGE STAT 11/21/2018 8:25 AM MAT TESTER ARTERIAL LINE Routine 11/21/2018 8:14 AM MAT TESTER Procedure Note - Felipe Trejo MD - 11/21/2018 8:14 AM MAT TESTER Arterial line Performed by: Felipe Trejo MD [...] immediate complications COLECTOMY, PARTIAL, 11/21/2018 7:30 AM MAT TESTER Cancer of ascending colon LAPAROSCOPIC (HCC) Special Needs EST 2 HRS, TF~1400, REQ 1200 START ECG PRE/POST OP Routine 11/15/2018 1:02 PM Preop testing Results for this MAT TESTER procedure are in the results section. CARCINOEMBRYONIC ANTIGEN Routine 11/15/2018 12:52 PM Preop testing Results for this (CEA) MAT TESTER procedure are in the results section. PREPARE RBC Routine 11/15/2018 12:43 PM Results for this MAT TESTER procedure are in the results section. PREPARE RBC Routine 11/15/2018 12:43 PM Results for this MAT TESTER procedure are in the results section. TYPE AND SCREEN Routine 11/15/2018 12:43 PM Preop testing Results for this MAT TESTER procedure are in the results section. ESTIMATED GFR Routine 10/24/2018 1:36 PM Results for this MAT TESTER procedure are in the results section. COMPREHENSIVE METABOLIC Routine 10/24/2018 1:36 PM Preop testing Results for this PANEL MAT TESTER procedure are in the results section. CBC HEMOGRAM Routine 10/24/2018 1:36 PM Preop testing Results for this MAT TESTER procedure are in the results section. after 03/13/2018 Results POC glucose (01/23/2019 11:45 AM CDT)Only the most recent of44 resultswithin the time period is included. POC glucose 107 (H) 65 - 99 mg/dL [facility] Comment: REPLACED BY [facility] Notified RN Meter ID: [id number] Ludlow Machine Operator: Eddie Dowd I Performing Organization Address City/[facility] Cent[facility]ode Phone Number [facility] DEPARTMENT OF PATHOLOGY AND [address] [place] [address] GENOMIC MEDIC[address] [address] CBC hemogram (01/23/2019 6:20 AM CDT)Only the most recent of2 resultswithin the time period is included. WBC 6.23 4.50 - 11.00 k/uL [facility] RBC 2.77 (L) 4.40 - 6.00 m/uL [facility] HGB 8.9 (L) 14.0 - 18.0 g/dL [facility] HCT 28.1 (L) 41.0 - 51.0 % [facility] MCV 101.4 (H) 82.0 - 100.0 fL [facility] MCH 32.1 27.0 - 34.0 pg [facility] MCHC 31.7 31.0 - 37.0 g/dL [facility] RDW - SD 66.9 (H) 37.0 - 55.0 fL [facility] MPV 10.7 8.8 - 13.2 fL [facility] Platelet count 156 150 - 400 k/uL [facility] Nucleated RBC 0.00 /100 WBC [facility] Specimen Blood Performing Organization Address City/[facility] Cent[facility]ode Phone Number [facility] DEPARTMENT OF PATHOLOGY AND [address] [place] [id number] [place] [address] Estimated GFR (01/22/2019 5:00 AM CDT)Only the most recent of20 resultswithin the time period is included. Estimated GFR 73 mL/min/1.73 m2 [facility] Comment: HOSPITAL CatergoryUnitsInterpretation G1 >=90 Normal or high G2 60-89Mildly decreased [id number] to moderately decreased V1e30-16Wcoanaearq to severely decreased G4 15-29Severely decreased G5 <15Kidney failure The eGFR was calculated using the Chronic Kidney Disease Epidemiology Collaboration (CKD-EPI) equation. Interpretation is based on recommendations of the National Kidney Foundation-Kidney Disease Outcomes Quality Initiative (NKF-KDOQI) published in 2014. Specimen Plasma specimen Performing Organization Address City/[facility] Cent[facility]ode Phone Number [facility] DEPARTMENT OF PATHOLOGY AND [address] [place] [address] Phosphorus level (01/22/2019 5:00 AM CDT)Only the most recent of9 resultswithin the time period is included. Phosphorus 2.3 (L) 2.4 - 4.5 mg/dL [facility] Specimen Plasma specimen Performing Organization Address City/[facility] Centercode Phone Number [facility] DEPARTMENT OF PATHOLOGY AND [address] [place] [phone] [place] [phone] B natriuretic peptide (01/22/2019 5:00 AM CDT)Only the most recent of5 resultswithin the time period is included. BNP 2,025 (H) 0 - 100 pg/mL [facility] Specimen Blood Performing Organization Address City/[facility] Centercode Phone Number [facility] DEPARTMENT OF PATHOLOGY AND [address] [place] [address] Magnesium level (01/22/2019 5:00 AM CDT)Only the most recent of13 resultswithin the time period is included. Magnesium 1.8 1.6 - 2.4 mg/dL [facility] Specimen Plasma specimen Performing Organization Address City/[facility]/Zipcode Phone Number [facility] DEPARTMENT OF PATHOLOGY AND [address] [place] [address] [address] Comprehensive metabolic panel (01/22/2019 5:00 AM CDT)Only the most recent of6 resultswithin the time period is included. Sodium 142 135 - 148 mEq/L [facility] Potassium 4.3 3.5 - 5.0 mEq/L [facility] Chloride 115 (H) 98 - 112 mEq/L [facility] CO2 18 (L) 24 - 31 mEq/L [facility] Anion gap 9@ANIO 7 - 15 mEq/L [facility] BUN 16 8 - 23 mg/dL [facility] Creatinine 0.98 0.70 - 1.20 mg/dL [facility] Glucose 78 65 - 99 mg/dL [facility] Calcium 8.1 (L) 8.8 - 10.2 mg/dL [facility] Protein 4.9 (L) 6.3 - 8.3 g/dL [facility] Comment: HOSPITAL 4.6-7.0 g/dL 1 week 4.4-7.6 g/dL 7 months-1year5.1-7.3 g/dL 1-2 years5.6-7.5 g/dL >3 years6.0-8.0 g/dL 18-150 6.3-8.3 g/dL Albumin 2.1 (L) 3.5 - 5.0 g/dL [facility] A/G ratio 0.8 0.7 - 3.8 [facility] Alkaline phosphatase 93 40 - 129 U/L [facility] AST 16 10 - 50 U/L [facility] ALT 10 5 - 50 U/L [facility] Total bilirubin 0.7 0.0 - 1.2 mg/dL [facility] Specimen Plasma specimen Performing Organization Address City/[facility]/Zipcode Phone Number [facility] DEPARTMENT OF PATHOLOGY AND [address] [place] [address] [address] XR Chest 1 Vw Portable (01/21/2019 2:42 PM CDT)Only the most recent of2 resultswithin the time period is included. Narrative Performed At EXAMINATION:XR CHEST 1 VW PORTABLE [facility] CLINICAL HISTORY:chf COMPARISON:01/10/2019 IMPRESSION: Right PICC line courses to the cavoatrial junction. Mild right hemidiaphragm elevation. Patchy left basilar opacity may reflect pneumonia, mildly improved. No new consolidation. No significant pleural effusion. Stable cardiomediastinal silhouette. [facility]-[id number] Procedure Note Interface, Radiology Results Incoming - 01/21/2019 2:56 PM CDT EXAMINATION: XR CHEST 1 VW PORTABLE CLINICAL HISTORY: chf COMPARISON: 01/10/2019 IMPRESSION: Right PICC line courses to the cavoatrial junction. Mild right hemidiaphragm elevation. Patchy left basilar opacity may reflect pneumonia, mildly improved. No new consolidation. No significant pleural effusion. Stable cardiomediastinal silhouette. [facility]-[id number] Performing Organization Address City/State/Zipcode Phone Number [facility] [address] duplex venous upper extremity (01/21/2019 2:27 PM CDT) Narrative Performed At [facility] Vascular Ultrasound Laboratory Upper Extremity Venous Report [address] [place] [address] Pat.Name:GAUTAM RAMIREZ Pat.ID:[id number] .Date: 01/21/2019 Refer.MD:LUIS CHEN MD Exam Time: 1:48:00 PMStudy Type:UE Venous Height:73inWeight: 155lb BSA: 1.93 m2 DOBAge:1940,78Y Sex: MALESonogrphr: Janny Cole RVT Pat. Stat.:Inpatient Room:[address] TapeVol: FAUSTINO, CPT - 4: [id number] Echo Event ID:[id number] Order ID:[id number] Reason for Study:Evaluation for DVT. Procedures:Colorflow, Grayscale/2D, Pulsed wave Doppler Race:C SUMMARY: DUPLEX SCAN OBSERVATIONS Right Left IJNormal Normal SubclavianNormal Normal AxillaryPartialNormal BrachialNormal Normal BasilicNot Visualized Normal CephalicNormal Normal RIGHT: The axillary vein is partially compressible with echogenic material adhered to the wall ofan IV line of the visualized vein; Colorflow and Doppler signals are present. The prox to mid segment of the brachial and the basilic veins are not visualized due to an invasive line/dressing.Remaining of the visualized veins are patent. LEFT:There is normal compressibility and no evidence of echogenic material noted within the lumen of the visualized veins. Colorflow and Doppler signals are normal. PRELIMINARY FINDINGS 1. Partial, acute deep vein thrombosis adhering to the wall of an IV line in the right axillary vein. Findings reported to RN @ 1430 hrs on 01/21/19. PHYSICIAN INTERPRETATION Venous examination of the both upper extremities and neck demonstrated partial, acute deep vein thrombosis adhering to the wall of an IV line in the right axillary vein. Signed 01/22/2019 11:30 AM Sergio Solorzano MD, RPVI Procedure Note Interface, Radiology Results In - 01/22/2019 11:30 AM CDT Vascular Ultrasound Laboratory Upper Extremity Venous Report [address] [place] [address] Pat.Name: GAUTAM RAMIREZ Pat.ID: [id number] .Date: 01/21/2019 Refer.MD: LUIS CHEN MD Exam Time: 1:48:00 PM Study Type:UE Venous Height: 73in Weight: 155lb BSA: 1.93 m2 Age: 4 1940,78Y Sex: MALE Sonogrphr: Janny Cole RVT Pat. Stat.:Inpatient Room: [address] Tape Vol: JJ, CPT - 4: 69684 Echo Event ID:[id number] Order ID: [id number] Reason for Study:Evaluation for DVT. Procedures:Colorflow, Grayscale/2D, Pulsed wave Doppler Race: C SUMMARY: DUPLEX SCAN OBSERVATIONS Right Left IJ Normal Normal Subclavian Normal Normal Axillary Partial Normal Brachial Normal Normal Basilic Not Visualized Normal Cephalic Normal Normal RIGHT: The axillary vein is partially compressible with echogenic material adhered to the wall of an IV line of the visualized vein; Colorflow and Doppler signals are present. The prox to mid segment of the brachial and the basilic veins are not visualized due to an invasive line/dressing. Remaining of the visualized veins are patent. LEFT: There is normal compressibility and no evidence of echogenic material noted within the lumen of the visualized veins. Colorflow and Doppler signals are normal. PRELIMINARY FINDINGS 1. Partial, acute deep vein thrombosis adhering to the wall of an IV line in the right axillary vein. Findings reported to RN @ 1430 hrs on 01/21/19. PHYSICIAN INTERPRETATION Venous examination of the both upper extremities and neck demonstrated partial, acute deep vein thrombosis adhering to the wall of an IV line in the right axillary vein. Signed 01/22/2019 11:30 AM Sergio Solorzano MD, RPVI Performing Organization Address City/State/Zipcode Phone Number [facility] [address] [place] [address] [place] duplex venous lower extremity (01/21/2019 2:03 PM CDT) Narrative Performed At [facility] Vascular Ultrasound Laboratory Lower Extremity Venous Report [address] [place] [address].Name:GAUTAM RAMIREZ Pat.ID:[id number] .Date: 01/21/2019 Refer.MD:LUIS CHEN MD Exam Time: 2:05:00 PMStudy Type:LE Venous Height:73inWeight: 155lb BSA: 1.93 m2 DOBAge:1940,78Y Sex: MALESonogrphr: Janny Cole RVT Pat. Stat.:Inpatient Room:[address] TapeVol: FAUSTINO, CPT - 4: [address]364 Echo Event ID:[id number] Order ID:[id number] Reason for Study:Evaluation for DVT, prolonged supine position. Procedures:Colorflow, Grayscale/2D, Pulsed wave Doppler Race:C SUMMARY: * Normal Reflux Criteria:< 0.5 seconds * Abnormal Reflux Criteria:> or equal to 0.5 seconds DUPLEX SCAN OBSERVATIONS Deep VeinsSuperficial Veins RightLeft RightLeft GSV (prox) Not VisualizedNormal CFV Not Visualized Normal (above knee) Femoral Normal Normal GSV (dist) Normal Normal Profunda Not Visualized Normal (below knee) Popliteal Normal Normal PT (prox) Too small Not visualizedSSV Normal Normal PT (dist) Too small Not Visualized Peroneal Obstructed Normal Gastrocs Not Visualized Normal RIGHT:The proximal segment of the greater saphenous vein is not visualized due to dressing. One of the paired peroneal veins is dilated andnon-compressible with absent colorflow and Doppler signals. Remaining of the visualized veins are patent. LEFT: There is normal compressibility with no evidence of echogenic material noted within the lumen of the visualized veins. Colorflow and Doppler signals are normal. PRELIMINARY FINDINGS 1. Deep vein thrombosis of one of the right paired peroneal veins. Findings reported to RN @ 1430 hrs on 01/21/19. PHYSICIAN INTERPRETATION Venous examination of the both lower extremities demonstrated deep vein thrombosis of one of the right paired peroneal veins. Signed 01/22/2019 11:19 AM Sergio Solorzano MD, RPVI Procedure Note Interface, Radiology Results In - 01/22/2019 11:19 AM CDT Vascular Ultrasound Laboratory Lower Extremity Venous Report [address] [place] [address] Pat.Name: GAUTAM RAMIREZ Pat.ID: [id number] .Date: 01/21/2019 Refer.MD: LUIS CHEN MD Exam Time: 2:05:00 PM Study Type:LE Venous Height: 73in Weight: 155lb BSA: 1.93 m2 Age: 4 1940,78Y Sex: MALE Sonogrphr: Janny Cole RVT Pat. Stat.:Inpatient Room: [address] Vol: JJ, CPT - 4: [address] Echo Event ID:[id number] Order ID: [id number] Reason for Study:Evaluation for DVT, prolonged supine position. Procedures:Colorflow, Grayscale/2D, Pulsed wave Doppler Race: C SUMMARY: * Normal Reflux Criteria: < 0.5 seconds * Abnormal Reflux Criteria: > or equal to 0.5 seconds DUPLEX SCAN OBSERVATIONS Deep Veins Superficial Veins Right Left Right Left GSV (prox) Not Visualized Normal CFV Not Visualized Normal (above knee) Femoral Normal Normal GSV (dist) Normal Normal Profunda Not Visualized Normal (below knee) Popliteal Normal Normal PT (prox) Too small Not visualized SSV Normal Normal PT (dist) Too small Not Visualized Peroneal Obstructed Normal Gastrocs Not Visualized Normal RIGHT: The proximal segment of the greater saphenous vein is not visualized due to dressing. One of the paired peroneal veins is dilated and non-compressible with absent colorflow and Doppler signals. Remaining of the visualized veins are patent. LEFT: There is normal compressibility with no evidence of echogenic material noted within the lumen of the visualized veins. Colorflow and Doppler signals are normal. PRELIMINARY FINDINGS 1. Deep vein thrombosis of one of the right paired peroneal veins. Findings reported to RN @ 1430 hrs on 01/21/19. PHYSICIAN INTERPRETATION Venous examination of the both lower extremities demonstrated deep vein thrombosis of one of the right paired peroneal veins. Signed 01/22/2019 11:19 AM Segrio Solorzano MD, RPVI Performing Organization Address City/State/Zipcode Phone Number [facility] [address] [place] [address] Cv cathode ray tube assembler procedure (01/20/2019 9:02 AM CDT) Narrative Performed At Inpatient procedure ;preop dx ischemic cardiomyopathy , decompensated chf SYNGO procedure : lhc,lva ,selective cor findings: patent proximal; lad stent,mild isr; cfx - calcified plaque fdx92-94% proximal stenosis, 100% stenosis mid rca proximal to rca stent, collaterals to distal julia /pad of rca via lad septals and cfx[progression of rca occlusive cadVs 01/2081 outside heart cath diagran m and lvef worsening vs out echo/doppler form sonya kevin 11/2018 report] lvef est 25-29%, lvedp 8; medical rx , afterloadOptimization; cv risk optimization emphasis Performing Organization Address City/State/Zipcode Phone Number [facility] [address] [place] [address] Partial thromboplastin time, activated (01/20/2019 4:56 AM CDT)Only the most recent of3 resultswithin the time period is included. PTT 38.8 (H) 23.0 - 36.0 sec [facility] Comment: PTT therapeutic range for unfractionated heparin is 61.0-112.0 seconds which corresponds to Anti-Xa 0.3-0.7 U/ml. Specimen Blood Performing Organization Address City/[facility]ode Phone Number [facility] DEPARTMENT OF PATHOLOGY AND [address] [place] [address] Prothrombin time with INR (01/20/2019 4:56 AM CDT)Only the most recent of4 resultswithin the time period is included. Prothrombin time 18.2 (H) 11.5 - 14.5 sec [facility] INR 1.6 [facility] Comment: HOSPITAL The International Normalized Ratio (INR) is a therapeutic monitoring tool for patients who are stable on oral anticoagulant therapy. An INR of 2.0-3.0 is suggested for deep vein thrombosis/pulmonary embolism. Specimen Blood Performing Organization Address City/[facility] Center[facility]y Phone Number [facility] DEPARTMENT OF PATHOLOGY AND [address] [place] [address] CBC with platelet and differential (01/20/2019 4:56 AM CDT)Only the most recent of13 resultswithin the time period is included. WBC 7.13 4.50 - 11.00 k/uL [facility] RBC 2.75 (L) 4.40 - 6.00 m/uL [facility] HGB 8.8 (L) 14.0 - 18.0 g/dL [facility] HCT 28.7 (L) 41.0 - 51.0 % [facility] MCV 104.4 (H) 82.0 - 100.0 fL [facility] MCH 32.0 27.0 - 34.0 pg [facility] MCHC 30.7 (L) 31.0 - 37.0 g/dL [facility] RDW - SD 64.8 (H) 37.0 - 55.0 fL [facility] MPV 11.1 8.8 - 13.2 fL [facility] Platelet count 124 (L) 150 - 400 k/uL [facility] Nucleated RBC 0.00 /100 WBC [facility] Neutrophils 70.3 (H) 39.0 - 69.0 % [facility] Lymphocytes 18.7 (L) 25.0 - 45.0 % [facility] Monocytes 6.9 0.0 - 10.0 % [facility] Eosinophils 2.8 0.0 - 5.0 % [facility] Basophils 0.3 0.0 - 1.0 % [facility] Immature granulocytes 1.0Comment: "Immature 0.0 - 1.0 % [facility]" [facility] (promyelocytes, myelocytes, metamyelocytes) Specimen Blood Performing Organization Address City/[facility] Cent[facility]ode Phone Number [facility] DEPARTMENT OF PATHOLOGY AND [address] [place] [address] GENOMIC MEDICINE [address] [address] Basic metabolic panel (01/17/2019 4:00 AM MAT TESTER)Only the most recent of14 resultswithin the time period is included. Sodium 141 135 - 148 mEq/L [facility] Potassium 4.1 3.5 - 5.0 mEq/L [facility] Chloride 116 (H) 98 - 112 mEq/L [facility] CO2 19 (L) 24 - 31 mEq/L [facility] [facility] Anion gap 6@ANIO (L) 7 - 15 mEq/L [facility] BUN 18 8 - 23 mg/dL [facility] Creatinine 0.93 0.70 - 1.20 mg/dL [facility] Glucose 91 65 - 99 mg/dL [facility] Calcium 7.5 (L) 8.8 - 10.2 mg/dL [facility] Specimen Plasma specimen Performing Organization Address City/[facility] Phone Number [facility] DEPARTMENT OF PATHOLOGY AND [address] [place] [address] [place] [address] Cv echo 2d limited or follow up study (01/16/2019 12:25 PM MAT TESTER) Narrative Performed At [facility] Echocardiography Report [id number] [facility] [address] [address] Pat.Name:GAUTAM RAMIREZ Pat.ID:[id number] .Date: 01/16/2019Refer.MD:LUIS CHEN MD Exam Time: 11:57:00 AM Study Type:Routine Echo Height:72.99in Weight:155lb BSA: 1.93 m2 DOBAge:1940,78Y Sex: MALEBP:99/56 HR:83 bpmSonogrphr: Sweta Turk RDCS Pat. Stat.:Inpatient Room:[place] [address] Study Status:Final Echo Event ID:[id number] Order ID:[id number] Reason for Study:Cardiomyopathies - Initial eval of known or suspected cardiomyopathy (e.g. restrictive, infiltrative, dilated, hypertophic, or genetic cardiomyopathy) Procedures:Portable, 2D Echo,Colorflow Doppler Limited Race:C SUMMARY: LV size is moderately to severely enlarged. Estimated EF is 20-24%. There is severe eccentric LV hypertrophy. Estimated PA systolic pressure is 33-38 mmHg, assuming a mean RAP of 5-10 mmHg. FINDINGS: LV: LV size is fyeswinz-ck-nhkvures enlarged. There is severe eccentricLV hypertrophy. LV EF is severely depressed. Regionalwall motion abnormalities present. Estimated EF is 20-24%. RV: RV size is normal. RV systolic function is normal. LA: LA volume is severely enlarged. RA: RA size is normal. AO: Aortic root diameter is normal. WILLIE: Small anterior pericardial effusion. IAS:Interatrial septum morphology: lipomatous hypertrophy. AV: Mild to moderate thickening and calcification of AV leaflets.Mild to moderate aortic valve stenosis. MV: Thickened and/or calcified chordae. Calcified papillary muscle.Mild to moderate mitral regurgitation. Etiology of MRis secondary to LV dysfunction and remodeling with restrictedposterior mitral leaflet. Eccentric mitral regurgitantjet directed posteriorly and laterally. PV: Pulmonic valve not well seen. TV: No structural TV abnormalities noted. Other:Estimated PA systolic pressure is 33-38 mmHg, assuming a meanRAP of 5-10 mmHg. MEASUREMENTS: 2D Parasternal Long Oxford LVOT 1.9 cmLA Ds5.1 cm LVIDd6.6 cmIndex3.4 cm/m Ao An2 cm LVIDs5.4 cmAo Rtd 3.7 cm Index1.9 cm/m LV%fs 18.2 % LV Mqor168.9 g(122-174) IVSd 1.1 cmLVM Tumlw475.3 g/m2 LVPWd1.2 cmRWT0.4 LA Sng Plane LA Area 26.7 cm2(8.8-23.4) LA Vol93 ml Index48.2 ml/m LA LngAx 6.3 cm RA Sng Plane RA Area 14.6 cm2(8.3-19.5) RA Vol36.7 ml Index19 ml/m RA LngAx 5.3 cm DOPPLER AV For Flow/KIRA AV pkVel 261.2 cm/s (100-170) AV AC/ET 0.4 AV mnVel 185.4 cm/Veronica TVI52.9 cm AV pkPG 27.3 mmHgAVpkAcRt 4332.8 cm/s2 AV Mean G 16.8 mmHgAV QgLu770.2 cm/s2 AV AC106 msec (83-118) AV Area1.1 cm2(3-5) AV ET285 msec LVOT For Flow LVOT Area2.8 cm2 LVOT SV 56.6 ml LVOTpkVel 95 cm/sHR83 bpm LVOTpkPG 3.6 mmHgLVOT CO4.7 l/min LVOTmnPG 2.2 mmHgLVOT CI2.4 l/m/m2 LVOT TVI20.2 cm WALL MOTION: RESTING WALL MOTION: Basal Inferoseptal, Basal Inferior, Mid Anteroseptal, Mid Inferoseptal, Mid Inferior, Mid Inferolateral, Apical Septal, Apical Inferior, Apical carvajal are akinetic.Basal Anterior, Basal Anteroseptal, Basal Inferolateral, Basal Anterolateral, Mid Anterior, Mid Anterolateral, Apical Anterior, Apical Lateral carvajal are hypokinetic. Wall Index=2.5 Signed 01/16/2019 04:21 PM Ole Hernández M.D. Procedure Note Interface, Radiology Results In - 01/16/2019 4:21 PM MAT TESTER Echocardiography Report [id number]Name: GAUTAM RAMIREZ Pat.ID: [id number] .Date: 01/16/2019 Refer.MD: LUIS CHEN MD Exam Time: 11:57:00 AM Study Type:Routine Echo Height: 72.99in Weight: 155lb BSA: 1.93 m2 Age: 5 1940,78Y Sex: MALE BP: 99/56 HR: 83 bpm Sonogrphr: Sweta Turk RDCS Pat. Stat.:Inpatient Room: [place] [address] Study Status:Final Echo Event ID:[id number] Order ID: [id number] Reason for Study:Cardiomyopathies - Initial eval of known or suspected cardiomyopathy (e.g. restrictive, infiltrative, dilated, hypertophic, or genetic cardiomyopathy) Procedures:Portable, 2D Echo,Colorflow Doppler Limited Race: C SUMMARY: LV size is moderately to severely enlarged. Estimated EF is 20-24%. There is severe eccentric LV hypertrophy. Estimated PA systolic pressure is 33-38 mmHg, assuming a mean RAP of 5-10 mmHg. FINDINGS: LV: LV size is cpjbjodw-te-ctdalwcc enlarged. There is severe eccentric LV hypertrophy. LV EF is severely depressed. Regional wall motion abnormalities present. Estimated EF is 20-24%. RV: RV size is normal. RV systolic function is normal. LA: LA volume is severely enlarged. RA: RA size is normal. AO: Aortic root diameter is normal. WILLIE: Small anterior pericardial effusion. IAS: Interatrial septum morphology: lipomatous hypertrophy. AV: Mild to moderate thickening and calcification of AV leaflets. Mild to moderate aortic valve stenosis. MV: Thickened and/or calcified chordae. Calcified papillary muscle. Mild to moderate mitral regurgitation. Etiology of MR is secondary to LV dysfunction and remodeling with restricted posterior mitral leaflet. Eccentric mitral regurgitant jet directed posteriorly and laterally. PV: Pulmonic valve not well seen. TV: No structural TV abnormalities noted. Other: Estimated PA systolic pressure is 33-38 mmHg, assuming a mean RAP of 5-10 mmHg. MEASUREMENTS: 2D Parasternal Long Oxford LVOT 1.9 cm LA Ds 5.1 cm LVIDd 6.6 cm Index 3.4 cm/m Ao An 2 cm LVIDs 5.4 cm Ao Rtd 3.7 cm Index 1.9 cm/m LV%fs 18.2 % LV Mass 347.9 g (122-174) IVSd 1.1 cm LVM Index 180.3 g/m2 LVPWd 1.2 cm RWT 0.4 LA Sng Plane LA Area 26.7 cm2 (8.8-23.4) LA Vol 93 ml Index 48.2 ml/m LA LngAx 6.3 cm RA Sng Plane RA Area 14.6 cm2 (8.3-19.5) RA Vol 36.7 ml Index 19 ml/m RA LngAx 5.3 cm DOPPLER AV For Flow/KIRA AV pkVel 261.2 cm/s (100-170) AV AC/ET 0.4 AV mnVel 185.4 cm/s AV TVI 52.9 cm AV pkPG 27.3 mmHg AVpkAcRt 4332.8 cm/s2 AV Mean G 16.8 mmHg AV DeRt 915.2 cm/s2 AV AC 106 msec (83-118) AV Area 1.1 cm2 (3-5) AV ET 285 msec LVOT For Flow LVOT Area 2.8 cm2 LVOT SV 56.6 ml LVOTpkVel 95 cm/s HR 83 bpm LVOTpkPG 3.6 mmHg LVOT CO 4.7 l/min LVOTmnPG 2.2 mmHg LVOT CI 2.4 l/m/m2 LVOT TVI 20.2 cm WALL MOTION: RESTING WALL MOTION: Basal Inferoseptal, Basal Inferior, Mid Anteroseptal, Mid Inferoseptal, Mid Inferior, Mid Inferolateral, Apical Septal, Apical Inferior, Apical carvajal are akinetic. Basal Anterior, Basal Anteroseptal, Basal Inferolateral, Basal Anterolateral, Mid Anterior, Mid Anterolateral, Apical Anterior, Apical Lateral carvajal are hypokinetic. Wall Index=2.5 Signed 01/16/2019 04:21 PM Ole Hernández M.D. Performing Organization Address City/State/Zipcode Phone Number [facility] [address] [place] [address] Vancomycin level, trough (01/16/2019 4:00 AM MAT TESTER)Only the most recent of2 resultswithin the time period is included. Vancomycin, trough 18.2 10.0 - 20.0 ug/mL [facility] Comment: HOSPITAL Therapeutic Ranges: Peak 30.0 - 40.0 ug/mL Vuzzqp90.0 - 20.0 ug/mL Specimen Serum Performing Organization Address City/[facility]ode Phone Number [facility] DEPARTMENT OF PATHOLOGY AND [address] [place] [phone] [address] ECG 12 lead (01/15/2019 8:20 AM MAT TESTER)Only the most recent of4 resultswithin the time period is included. Ventricular rate 99 [facility] MUSE Atrial rate 99 [facility] MUSE QRSD interval 124 [facility] MUSE QT interval 352 [facility] MUSE QTC interval 451 [facility] MUSE P axis 1 56 [facility] MUSE QRS axis 1 -31 [facility] MUSE T wave axis 124 [facility] MUSE EKG impression Normal sinus rhythm-Left axis deviation-Septal infarct (cited on or before 15-NOV-2018)-Inferior infarct (cited on or before 10-JAN-2019)-ST & T wave abnormality, consider lateral ischemia-Abnormal ECG-In automated comparison with ECG of 11-JAN-2019 [facility] MUSE 11:15,-fusion complexes are no longer present-QRS axis shifted left- Nonspecific T wave abnormality, improved in Inferior leads-T wave inversion more evident in Lateral leads- Narrative Performed At Performing Organization Address City/[facility] Cent[facility]ode Phone Number [facility] MUSE [address] [place] [address] Aerobic culture (01/14/2019 11:05 AM MAT TESTER)Only the most recent of2 resultswithin the time period is included. Aerobic culture isolate No growth after 2 days. [facility] Comment: HOSPITAL Specimen Information Specimen Source: Drainage Specimen Site: Back Specimen Drainage - Back Performing Organization Address City/State/Zipcode Phone Number [facility] DEPARTMENT OF PATHOLOGY AND [address] [place] [address] [place] [address] Gram stain (01/14/2019 11:05 AM MAT TESTER)Only the most recent of2 resultswithin the time period is included. Gram stain isolate Moderate WBC's [facility] No organisms seen Comment: Specimen Information Specimen Source: Drainage Specimen Site: Back Specimen Drainage - Back Performing Organization Address [facility] Cent[facility]ode Phone Number [facility] DEPARTMENT OF PATHOLOGY AND [address] [place] [address] Anaerobic culture (01/14/2019 10:05 AM MAT TESTER)Only the most recent of2 resultswithin the time period is included. Anaerobic culture isolate No anaerobic organisms isolated. [facility] Comment: HOSPITAL Specimen Information Specimen Source: Drainage Specimen Site: Back Specimen Drainage - Back Performing Organization Address [facility] Cent[facility]ode Phone Number [facility] DEPARTMENT OF PATHOLOGY AND [address] [place] [address] HIV Ag/Ab combination (01/14/2019 4:00 AM MAT TESTER) HIV Ag/Ab combination Non-reactive Non-reactive [facility] Specimen Blood Performing Organization Address [facility] Phone Number [facility] DEPARTMENT OF PATHOLOGY AND [address] [place] [address] Us carotid duplex (01/13/2019 9:45 AM MAT TESTER) Narrative Performed At [facility] Vascular Ultrasound Laboratory Carotid Artery Duplex Report [id number] [facility], [place] [address] For quality director purposes, the categorization of the degree of the stenosis of this exam is based on criteria described in the IAC carotid stenosis grading white paper( www.intersocietal.org/Vascular) and Keli Ford., Aleks Garay., et al. Carotid artery stenosis: grady-scale and Doppler US diagnosis--Society of Radiologists in Ultrasound Consensus Conference. Radiology. 2003 Sep; 229(2):340-6. Pat.Name:GAUTAM RAMIREZ Lara.ID:[id number] St.Date: 01/13/2019Refgely.MD:LUIS CHEN MD Exam Time: 9:25:00 AMStudy Type:Carotid DOBAge:1940,78Y Sex: MALE Sonogrphr: Piero Starr RVLEAHat. Stat.:Inpatient Room:[facility] TapeVol: [facility] - 4: [id number] Echo Event ID:[id number] Order ID:[id number] Reason for Study:Carotid artery disease; CAD, colon cancer, HTN, PSH of brain aneurysm repair. Procedures:Colorflow, Grayscale/2D, Pulsed wave Doppler SUMMARY: PHYSICAL ASSESSMENT BloodPulsesCarotid Pressure Carotid TemporalBruit Right IV ++0 Left 90/51 ++0 CAROTID ARTERY SCAN RIGHT:There is hard plaque in the common carotid artery. There is hard and calcified plaque noted in the bulb extending into the proximal internal and external carotid artery.Colorflow is normal. LEFT: There is smooth intimal lining in the common carotid artery. There is hard and calcified plaque noted in the bulb extending into the proximal internal carotid artery.The external carotid artery is clear. Colorflow is normal. PRELIMINARY FINDINGS 1.<50%stenosis in the bulb and internal carotid artery, bilaterally. 2.<50% stenosis in the rightexternal carotid artery. 3.Non-stenotic plaque in the rightcommon carotid artery. PHYSICIAN INTERPRETATION Bilateral carotid duplex examination demonstrated atherosclerotic plaques right common carotid artery and in the bulbs. Less than 50% stenosis in the bulb and internal carotid artery, bilaterally. Both vertebral arteries are antegrade. Carotid Findings:RightLeft Verteb.Flw AntegradeAntegrade Subclavian TriphasicTriphasic MEASUREMENTS: DOPPLER Right CCA Dist CCA Dist PSV48 cm/sCCA Dist EDV14 cm/s Right CCA Mid CCA Mid PSV 44.2 cm/sCCA Mid EDV 8.55 cm/s Right CCA Prox CCA Prox PSV47.5 cm/sCCA Prox EDV12.4 cm/s Right ECA Prox ECA Prox PSV68.8 cm/sECA Prox EDV 0 cm/s Right ICA Dist ICA Dist PSV47.6 cm/Irene Dist EDV18.6 cm/s Right ICA Mid ICA Mid PSV 54.4 cm/Irene Mid EDV 26.4 cm/s Right ICA Prox ICA Prox PSV50.7 cm/Irene Prox EDV25.1 cm/s Right Vertebral Vertebral PSV 59 cm/sVertebral EDV 17 cm/s Right Subclavian Subclavian PSV53 cm/sSubclavian EDV 0 cm/s Left CCA Dist CCA Dist PSV49.6 cm/sCCA Dist EDV14.7 cm/s Left CCA Mid CCA Mid PSV 56.6 cm/sCCA Mid EDV 13.9 cm/s Left CCA Prox CCA Prox PSV47.9 cm/sCCA Prox EDV15.6 cm/s Left ECA Prox ECA Prox PSV50.8 cm/sECA Prox EDV 0 cm/s Left ICA Dist ICA Dist PSV75.1 cm/Irene Dist EDV26.7 cm/s Left ICA Mid ICA Mid PSV 72.5 cm/Irene Mid EDV 28.9 cm/s Left ICA Prox ICA Prox PSV89.1 cm/Irene Prox EDV16.2 cm/s Left Vertebral Vertebral PSV 48.2 cm/sVertebral EDV 16.8 cm/s Left Subclavian Subclavian PSV52 cm/sSubclavian EDV 0 cm/s Right ICA/CCA Ratio ICA/CCA PSV 1.15 Left ICA/CCA Ratio ICA/CCA PSV 1.57 Signed 01/13/2019 06:05 PM Gautam Estrada MD, FACS, RPVI Procedure Note Interface, Radiology Results In - 01/13/2019 6:06 PM [facility] Vascular Ultrasound Laboratory Carotid Artery Duplex Report [id number] [address] For quality director purposes, the categorization of the degree of the stenosis of this exam is based on criteria described in the IAC carotid stenosis grading white paper( www.intersocietal.org/Vascular) and Keli Ford., Aleks Garay., et al. Carotid artery stenosis: grady-scale and Doppler US diagnosis--Society of Radiologists in Ultrasound Consensus Conference. Radiology. 2003 Nov; 229(2):340-6. Pat.Name: GAUTAM RAMIREZ Pat.ID: [id number] St.Date: 01/13/2019 Refer.MD: LUIS CHEN MD Exam Time: 9:25:00 AM Study Type:Carotid Age: 5 1940,78Y Sex: MALE Sonogrphr: Piero Starr RVS Pat. Stat.:Inpatient Room: [address] Vol: , [facility] - 4: [id number] Echo Event ID:[id number] Order ID: [id number] Reason for Study:Carotid artery disease; CAD, colon cancer, HTN, PSH of brain aneurysm repair. Procedures:Colorflow, Grayscale/2D, Pulsed wave Doppler SUMMARY: PHYSICAL ASSESSMENT Blood Pulses Carotid Pressure Carotid Temporal Bruit Right IV + + 0 Left 90/51 + + 0 CAROTID ARTERY SCAN RIGHT: There is hard plaque in the common carotid artery. There is hard and calcified plaque noted in the bulb extending into the proximal internal and external carotid artery. Colorflow is normal. LEFT: There is smooth intimal lining in the common carotid artery. There is hard and calcified plaque noted in the bulb extending into the proximal internal carotid artery. The external carotid artery is clear. Colorflow is normal. PRELIMINARY FINDINGS 1. <50% stenosis in the bulb and internal carotid artery, bilaterally. 2. <50% stenosis in the right external carotid artery. 3. Non-stenotic plaque in the right common carotid artery. PHYSICIAN INTERPRETATION Bilateral carotid duplex examination demonstrated atherosclerotic plaques right common carotid artery and in the bulbs. Less than 50% stenosis in the bulb and internal carotid artery, bilaterally. Both vertebral arteries are antegrade. Carotid Findings: Right Left Verteb.Flw Antegrade Antegrade Subclavian Triphasic Triphasic MEASUREMENTS: DOPPLER Right CCA Dist CCA Dist PSV 48 cm/s CCA Dist EDV 14 cm/s Right CCA Mid CCA Mid PSV 44.2 cm/s CCA Mid EDV 8.55 cm/s Right CCA Prox CCA Prox PSV 47.5 cm/s CCA Prox EDV 12.4 cm/s Right ECA Prox ECA Prox PSV 68.8 cm/s ECA Prox EDV 0 cm/s Right ICA Dist ICA Dist PSV 47.6 cm/s ICA Dist EDV 18.6 cm/s Right ICA Mid ICA Mid PSV 54.4 cm/s ICA Mid EDV 26.4 cm/s Right ICA Prox ICA Prox PSV 50.7 cm/s ICA Prox EDV 25.1 cm/s Right Vertebral Vertebral PSV 59 cm/s Vertebral EDV 17 cm/s Right Subclavian Subclavian PSV 53 cm/s Subclavian EDV 0 cm/s Left CCA Dist CCA Dist PSV 49.6 cm/s CCA Dist EDV 14.7 cm/s Left CCA Mid CCA Mid PSV 56.6 cm/s CCA Mid EDV 13.9 cm/s Left CCA Prox CCA Prox PSV 47.9 cm/s CCA Prox EDV 15.6 cm/s Left ECA Prox ECA Prox PSV 50.8 cm/s ECA Prox EDV 0 cm/s Left ICA Dist ICA Dist PSV 75.1 cm/s ICA Dist EDV 26.7 cm/s Left ICA Mid ICA Mid PSV 72.5 cm/s ICA Mid EDV 28.9 cm/s Left ICA Prox ICA Prox PSV 89.1 cm/s ICA Prox EDV 16.2 cm/s Left Vertebral Vertebral PSV 48.2 cm/s Vertebral EDV 16.8 cm/s Left Subclavian Subclavian PSV 52 cm/s Subclavian EDV 0 cm/s Right ICA/CCA Ratio ICA/CCA PSV 1.15 Left ICA/CCA Ratio ICA/CCA PSV 1.57 Signed 01/13/2019 06:05 PM Gautam Estrada MD, FACS, RPVI Performing Organization Address City/[facility] Cent[facility]ode Phone Number [facility] [address] [place] [address] Total iron binding capacity (01/13/2019 3:30 AM MAT TESTER) Iron level 39 (L) 59 - 158 ug/dL [facility] Iron binding capacity 81 (L) 200 - 400 ug/dL [facility] % Saturation 48.1 (H) 20.0 - 40.0 % [facility] Specimen Plasma specimen Performing Organization Address City/[facility]/Zipcode Phone Number [facility] DEPARTMENT OF PATHOLOGY AND [address] [place] [phone] [address] Reticulocyte count (01/13/2019 3:30 AM MAT TESTER) Retic %, auto 0.9 0.5 - 2.1 % [facility] Retic absolute, auto 0.0245 0.0220 - 0.1260 m/uL [facility] Specimen Blood Performing Organization Address City/[facility]ode Phone Number [facility] DEPARTMENT OF PATHOLOGY AND [address] [place] [address] [address] Folate level (01/13/2019 3:30 AM MAT TESTER) Folate 4.2 (L) 4.8 - 24.2 ng/mL [facility] Specimen Serum Performing Organization Address [facility] Cent[facility]ode Phone Number [facility] DEPARTMENT OF PATHOLOGY AND [address] [place] [address] [address] Vitamin B12 level (01/13/2019 3:30 AM MAT TESTER) Vitamin B12 787 211 - 946 pg/mL [facility] Comment: Significant overlap exists between normal and deficiency states. However, most patients with deficiencies will have Serum B12 <200 pg/mL. Specimen Serum Performing Organization Address City/[facility]/Zipcode Phone Number [facility] DEPARTMENT OF PATHOLOGY AND [address] [place] [phone] [address] Cortisol level, AM (01/12/2019 5:50 AM MAT TESTER) Cortisol, AM 7 6 - 18 ug/dL [facility] Specimen Plasma specimen Performing Organization Address City/[facility]ode Phone Number [facility] DEPARTMENT OF PATHOLOGY AND [address] [place] [phone] [place] [phone] T3, free (01/12/2019 5:50 AM MAT TESTER) T3, free 1.1 (L) 2.4 - 4.2 pg/mL [facility] Comment: REFERENCE INTERVAL: Triiodothyronine, Free (Free T3) Access complete set of age- and/or gender-specific reference intervals for this test in the [employer] [facility] Test Directory ([employer]). Performed by [facility], [address] [place] [phone] [email or web address], Al Dunbar MD - Lab. Director Specimen Serum Performing Organization Address [facility] Phone Number [employer] [facility] [address] [place] [phone] [facility] [address] [place] [address] Thyroid stimulating hormone (01/12/2019 5:50 AM MAT TESTER)Only the most recent of2 resultswithin the time period is included. TSH 4.12 0.27 - 4.20 uIU/mL [facility] Specimen Plasma specimen Performing Organization Address City/[facility]ode Phone Number [facility] DEPARTMENT OF PATHOLOGY AND [address] [place] [address] T4, free (01/12/2019 5:50 AM MAT TESTER) T4, free 0.8 (L) 0.9 - 1.7 ng/dL [facility] Specimen Plasma specimen Performing Organization Address City/[facility]ercode Phone Number [facility] DEPARTMENT OF PATHOLOGY AND [address] [place] [phone] [place] [address] Thyroperoxidase antibody (01/11/2019 1:10 PM MAT TESTER) Thyroperoxidase Ab <0.3 0.0 - 9.0 IU/mL [facility] Specimen Serum Performing Organization Address City/[facility] Centercode Phone Number [facility] DEPARTMENT OF PATHOLOGY AND [address] [place] [phone] [place] [phone] Ionized calcium (01/11/2019 3:30 AM MAT TESTER)Only the most recent of2 resultswithin the time period is included. pH 7.53 [facility] Ionized calcium 1.11 1.11 - 1.32 mmol/L [facility] Specimen Plasma specimen Performing Organization Address City/[facility] Phone Number [facility] DEPARTMENT OF PATHOLOGY AND [address] [place] [phone] [place] [address] Hepatic function panel (01/11/2019 3:30 AM MAT TESTER)Only the most recent of2 resultswithin the time period is included. Albumin 1.5 (L) 3.5 - 5.0 g/dL [facility] Total bilirubin 0.8 0.0 - 1.2 mg/dL [facility] Bilirubin direct 0.4 (H) 0.0 - 0.3 mg/dL [facility] Alkaline phosphatase 163 (H) 40 - 129 U/L [facility] Protein 5.1 (L) 6.3 - 8.3 g/dL [facility] Comment: 4.6-7.0 g/dL 1 week 4.4-7.6 g/dL 7 months-1year5.1-7.3 g/dL 1-2 years5.6-7.5 g/dL >3 years6.0-8.0 g/dL 18-150 6.3-8.3 g/dL ALT 35 5 - 50 U/L [facility] AST 25 10 - 50 U/L [facility] Specimen Plasma specimen Performing Organization Address [facility] Phone Number [facility] DEPARTMENT OF PATHOLOGY AND [address] [place] [address] Hemoglobin & hematocrit (01/10/2019 8:10 PM MAT TESTER)Only the most recent of4 resultswithin the time period is included. HGB 9.7 (L) 14.0 - 18.0 g/dL [facility] HCT 30.9 (L) 41.0 - 51.0 % [facility] Specimen Blood Performing Organization Address City/[facility] Cent[facility]ode Phone Number [facility] DEPARTMENT OF PATHOLOGY AND [address] [place] [phone] [place] [phone] Troponin (01/10/2019 8:10 PM MAT TESTER)Only the most recent of3 resultswithin the time period is included. Troponin <0.30 0.00 - 0.30 ng/mL [facility] Comment: 0.30 - 1.49 ng/mlMay indicate increased risk of acute coronary syndrome. >=1.5 ng/mlConsistent with acute myocardial infarction. The diagnostic value of a single normal or non-diagnostic result is questionable.Serial samples at 2-6 hour intervals are required to rule out acute myocardial injury. Specimen Plasma specimen Performing Organization Address [facility] Phone Number [facility] DEPARTMENT OF PATHOLOGY AND [address] [place] [phone] Hepatitis acute panel (01/10/2019 5:16 PM MAT TESTER) Hepatitis A IgM Non-reactive Non-reactive [facility] Hepatitis B core IgM Non-reactive Non-reactive [facility] Hepatitis B surface Ag Non-reactive Non-reactive [facility] Hepatitis C Ab Non-reactive Non-reactive [facility] Specimen Serum Performing Organization Address [facility] Phone Number [facility] DEPARTMENT OF PATHOLOGY AND [address] [place] [phone] T4 (01/10/2019 5:16 PM MAT TESTER) T4 3.1 (L) 4.5 - 11.7 ug/dL [facility] Specimen Plasma specimen Performing Organization Address [facility] Phone Number [facility] DEPARTMENT OF PATHOLOGY AND [address] [place] [phone] Lactic acid level, SEPSIS - Now and repeat 2x every 3 hours (01/10/2019 12:15 PM MAT TESTER)Only the most recent of3 resultswithin the time period is included. Lactic acid 1.3 0.5 - 2.2 mmol/L [facility] Specimen Blood Performing Organization Address City/[facility] Phone Number [facility] DEPARTMENT OF PATHOLOGY AND [address] [place] [id number] [place] [phone] Sodium level, urine, random (01/10/2019 12:12 PM MAT TESTER) Sodium, urine, random 81 mEq/L [facility] Specimen Urine Performing Organization Address City/[facility] Phone Number [facility] DEPARTMENT OF PATHOLOGY AND [address] [place] [id number] [place] [phone] Creatinine level, urine, random (01/10/2019 12:12 PM MAT TESTER) Creatinine, urine, random 98 mg/dL [facility] Specimen Urine Performing Organization Address [facility] Phone Number [facility] DEPARTMENT OF PATHOLOGY AND [address] [place] [phone] [place] [phone] Head Wo Contrast (01/10/2019 11:23 AM MAT TESTER) Narrative Performed At EXAMINATION:CT HEAD WO CONTRAST [facility] CLINICAL HISTORY:Altered level of consciousness (LOC)unexplained Comparison: None available. Technique: Routine unenhanced brain CT. CT imaging was performed with iterative reconstruction technique and/or automated exposure control to reduce radiation dose. Findings: Left frontal pterional craniotomy for presumed left MCA aneurysm clipping. There is encephalomalacia underlying the craniotomy in the left frontal and temporal lobes. No acute intracranial hemorrhage, extracerebral fluid collection, midline shift or mass effect. No acute transcortical infarction. Probable chronic ischemic changes. Intracranial atherosclerosis. Ventricles are prominent but cerebral volume is age appropriate. Right basal ganglia lacunar infarcts versus dilated perivascular spaces. Bilateral lens surgery. Air-fluid level in the left maxillary sinus with mucoid secretions. Mild left anterior ethmoid air cell mucosal thickening. Clinically correlate for acute sinusitis. Partial opacification of right mastoid air cells. Opacification of right middle ear cavity. Layering fluid in the sphenoid sinuses. Impression: No acute intracranial hemorrhage or mass effect. Left frontal pterional craniotomy for presumed left MCA aneurysm clipping with encephalomalacia in the left frontal and temporal lobes. Paranasal sinus inflammatory changes as detailed, clinically correlate for acute sinusitis. Opacification of right middle ear cavity and partial opacification of right mastoid air cells, correlate with physical exam for otomastoiditis. [id number] Procedure Note Hm Interface, Radiology Results Incoming - 01/10/2019 11:35 AM MAT TESTER EXAMINATION: CT HEAD WO CONTRAST CLINICAL HISTORY: Altered level of consciousness (LOC) unexplained Comparison: None available. Technique: Routine unenhanced brain CT. CT imaging was performed with iterative reconstruction technique and/or automated exposure control to reduce radiation dose. Findings: Left frontal pterional craniotomy for presumed left MCA aneurysm clipping. There is encephalomalacia underlying the craniotomy in the left frontal and temporal lobes. No acute intracranial hemorrhage, extracerebral fluid collection, midline shift or mass effect. No acute transcortical infarction. Probable chronic ischemic changes. Intracranial atherosclerosis. Ventricles are prominent but cerebral volume is age appropriate. Right basal ganglia lacunar infarcts versus dilated perivascular spaces. Bilateral lens surgery. Air-fluid level in the left maxillary sinus with mucoid secretions. Mild left anterior ethmoid air cell mucosal thickening. Clinically correlate for acute sinusitis. Partial opacification of right mastoid air cells. Opacification of right middle ear cavity. Layering fluid in the sphenoid sinuses. Impression: No acute intracranial hemorrhage or mass effect. Left frontal pterional craniotomy for presumed left MCA aneurysm clipping with encephalomalacia in the left frontal and temporal lobes. Paranasal sinus inflammatory changes as detailed, clinically correlate for acute sinusitis. Opacification of right middle ear cavity and partial opacification of right mastoid air cells, correlate with physical exam for otomastoiditis. [id number] Performing Organization Address City/State/Zipcode Phone Number [facility] [address] [place] [address] CT Abdomen Pelvis Wo Contrast (01/10/2019 11:23 AM MAT TESTER) Narrative Performed At EXAMINATION:CT ABDOMEN PELVIS WO CONTRAST [facility] CLINICAL HISTORY:Abd painfeverabscess suspected COMPARISON:None. TECHNIQUE: Multiple axial CT images of the Abdomen and pelvis were obtained Without IV contrast limiting evaluation . Sagittal and coronal reconstructions were done. Radiation dose reduction technique used for this study. CT imaging was performed with iterative reconstruction technique and/or automated exposure control to reduce radiation dose. FINDINGS: HEPATOBILIARY:Multiple subcentimeter hypodensities in the liver are too small to further correct rise. GALLBLADDER: Normal. SPLEEN:Spleen is upper normal limits in size at 13 cm in length and is lobulated. PANCREAS:Unremarkable within the limitations of a noncontrast exam. ADRENALS:No adrenal nodules. KIDNEYS:Contrast media present within the renal parenchyma bilaterally and renal collecting system from recent IV contrast administration. No hydronephrosis. Bilateral renal cysts present measuring up to 4 cm in the left. PERITONEUM/RETROPERITONEUM:Trace ascites present surrounding the liver and in the right abdominal gutter. No loculated fluid collections. No hematoma or free air. ABDOMINAL AORTA/IVC: No signs of aneurysm. GI TRACT:Posterior changes of prior right hemicolectomy. A right lower quadrant ileostomy is in place. No bowel distention present to suggest bowel obstruction.No signs of diverticulitis. PELVIC ORGANS/BLADDER:Inner bladder is filled with contrast. The prostate gland is 4.8 cm in diameter. No enlarged lymph nodes in the pelvis. BONES AND SOFT TISSUES:No abnormalities. VISUALIZED LOWER CHEST: Partial consolidation of the lower lobes. Heart is enlarged with atherosclerosis of coronary arteries. IMPRESSION: No fluid collections to suggest abscess. Bilateral lower lobe pneumonia. [id number] Procedure Note Hm Interface, Radiology Results Incoming - 01/10/2019 12:05 PM MAT TESTER EXAMINATION: CT ABDOMEN PELVIS WO CONTRAST CLINICAL HISTORY: Abd pain fever abscess suspected COMPARISON: None. TECHNIQUE: Multiple axial CT images of the Abdomen and pelvis were obtained Without IV contrast limiting evaluation . Sagittal and coronal reconstructions were done. Radiation dose reduction technique used for this study. CT imaging was performed with iterative reconstruction technique and/or automated exposure control to reduce radiation dose. FINDINGS: HEPATOBILIARY: Multiple subcentimeter hypodensities in the liver are too small to further correct rise. GALLBLADDER: Normal. SPLEEN: Spleen is upper normal limits in size at 13 cm in length and is lobulated. PANCREAS: Unremarkable within the limitations of a noncontrast exam. ADRENALS: No adrenal nodules. KIDNEYS: Contrast media present within the renal parenchyma bilaterally and renal collecting system from recent IV contrast administration. No hydronephrosis. Bilateral renal cysts present measuring up to 4 cm in the left. PERITONEUM/RETROPERITONEUM: Trace ascites present surrounding the liver and in the right abdominal gutter. No loculated fluid collections. No hematoma or free air. ABDOMINAL AORTA/IVC: No signs of aneurysm. GI TRACT: Posterior changes of prior right hemicolectomy. A right lower quadrant ileostomy is in place. No bowel distention present to suggest bowel obstruction. No signs of diverticulitis. PELVIC ORGANS/BLADDER: Inner bladder is filled with contrast. The prostate gland is 4.8 cm in diameter. No enlarged lymph nodes in the pelvis. BONES AND SOFT TISSUES: No abnormalities. VISUALIZED LOWER CHEST: Partial consolidation of the lower lobes. Heart is enlarged with atherosclerosis of coronary arteries. IMPRESSION: No fluid collections to suggest abscess. Bilateral lower lobe pneumonia. [id number] Performing Organization Address [facility] Phone Number [facility] [address] [place] [address] XR Picc Chest Portable (01/10/2019 11:00 AM MAT TESTER) Narrative Performed At EXAMINATION:XR [facility]ST [facility] CLINICAL H[facility]ORY:N91.2 Amenorrheaunspecified, Multiple IV meds COMPARISON:Chest x-ray 01/10/2019 IMPRESSION: Single frontal view reveals interval placement of a right-sided PICC line with tip overlying the SVC. The remainder of the examination is unchanged. [facility]-[id number] Procedure Note Hm Interface, Radiology Results Incoming - 01/10/2019 11:04 AM MAT TESTER EXAMINATION: XR PICC CHEST PORTABLE CLINICAL HISTORY: N91.2 Amenorrhea unspecified, Multiple IV meds COMPARISON: Chest x-ray 01/10/2019 IMPRESSION: Single frontal view reveals interval placement of a right-sided PICC line with tip overlying the SVC. The remainder of the examination is unchanged. [facility]-[id number] Performing Organization Address [facility] Phone Number [facility] [address] [place] [address] PICC insertion (01/10/2019 9:58 AM MAT TESTER) Narrative Performed At Jeinfer Woodson 01/10/2019 10:04 AM PICC insertion Date/Time: 01/10/2019 9:58 AM Performed by: Don Riojas RN Authorized by: Nayely Flood MD Consent: Consent obtained:Verbal Consent given by:Patient Risks discussed: arterial puncture, incorrect placement, nerve damage, bleeding, infection, superficial thrombus and deep vein thrombus Alternatives discussed:No treatment and delayed treatment Landrum protocol: Procedure explained and questions answered to patient or proxy's satisfaction: yes Relevant documents present and verified: yes Test results available and properly labeled: yes Imaging studies available: yes Required blood products, implants, devices, and special equipment available: yes Site/side marked: yes Immediately prior to procedure, a time out was called: yes Patient identity confirmed:Verbally with patient, arm band, provided demographic data and hospital-assigned identification number Pre-procedure details: Hand hygiene: Hand hygiene performed prior to insertion Sterile barrier technique: All elements of maximal sterile technique followed Skin preparation:2% chlorhexidine Skin preparation agent: Skin preparation agent completely dried prior to procedure Anesthesia (see MAR for exact dosages): Anesthesia method:Local infiltration Local anesthetic:Lidocaine 1% w/o epi Route of administration:Subcutaneous PICC Line Placement Details (Will create an LDA): Patient position:Flat Vessel Size (mm):4 Indication:Known long chain beamer IV therapy Location:Right basilic Device Type:Non-valved Catheter size:5 Fr PICC Characteristics: Catheter Brand:[email or web address] PowerPICC External Catheter Length (cm):0 Internal Catheter Length (cm):41 Total Catheter Length (cm):41 Catheter Lot Number:[id number] Catheter Expiration Date:09/11/2020 Procedure Details: Landmarks identified: yes Ultrasound guidance: yes Sterile ultrasound techniques: Sterile gel and sterile probe covers were used Number of attempts:1 Number of PICC kits used during procedure:1 Purpose of procedure:PICC Placement Successful PICC Placement: Yes Patency/Placement:Flushes without difficulty, flushed with 10 mL normal saline, positive blood return, x-ray placement verified and injection cap placed PICC placed utlizing ultrasound-guided Modified Seldinger Technique: Yes Dressing/Securement:Catheter securement device and antimicrobial dressing applied Blood Loss Amount:Less than 20 mL Post-Procedure Details: Post-procedure:Dressing applied Tip placement confirmed by chest x-ray: Yes Patient tolerance of procedure:Tolerated well, no immediate complications Urine culture (01/10/2019 7:31 AM MAT TESTER) Urine culture SEE COMMENTComment: Bacteriuria [facility] screen negative. Performing Organization Address City/State/Zipcode Phone Number [facility] DEPARTMENT OF PATHOLOGY AND [address] [place] [address] GENOMIC MEDICINE [address] [address] Urinalysis screen and microscopy, with reflex to culture (01/10/2019 7:24 AM MAT TESTER) Specimen site Catheterized [facility] Color, UA Yellow [facility] Appearance, UA Clear [facility] Specific gravity, UA 1.054 (H) 1.001 - 1.035 [facility] pH, UA 5.0 5.0 - 8.5 [facility] Protein, UA Negative Negative [facility] Glucose, UA Negative Negative [facility] Ketones, UA Negative Negative [facility] Bilirubin, UA Negative Negative [facility] Blood, UA Negative Negative [facility] Nitrite, UA Negative Negative [facility] Urobilinogen, UA <2.0 <2.0 [facility] Leukocyte esterase, UA Negative Negative [facility] Epithelial cells, UA 1 /HPF [facility] WBC, UA 2 (H) 0 - 1 /HPF [facility] RBC, UA 5 0 - 5 /HPF [facility] Bacteria, UA Few None seen [facility] Yeast, UA None seen [facility] Yeast with pseudohyphae, UA None seen [facility] Specimen Urine Performing Organization Address City/[facility] Phone Number [facility] DEPARTMENT OF PATHOLOGY AND [address] [place] [address] GENOMIC MEDICINE [address] [address] XR Abdomen 1 Vw Portable (01/10/2019 6:53 AM MAT TESTER) Narrative Performed At EXAMINATION:XR ABDOMEN 1 VW PORTABLE [facility] CLINICAL HISTORY:ICU ptrecent abdominal surgery COMPARISON:None. IMPRESSION: Water-soluble contrast material is noted in the stomach and proximal small bowel which is not dilated.There is an ostomy in the right lower quadrant.There is no significant colonic material identified.There is contrast in the urinary bladder. [facility] [place][id number] Procedure Note Interface, Radiology Results Incoming - 01/10/2019 7:46 AM MAT TESTER EXAMINATION: XR ABDOMEN 1 VW PORTABLE CLINICAL HISTORY: ICU pt recent abdominal surgery COMPARISON: None. IMPRESSION: Water-soluble contrast material is noted in the stomach and proximal small bowel which is not dilated. There is an ostomy in the right lower quadrant. There is no significant colonic material identified. There is contrast in the urinary bladder. [facility]-[id number] Performing Organization Address City/State/Zipcode Phone Number [facility] [address] [place] [address] Echocardiogram complete w contrast and 3D if needed (01/10/2019 6:28 AM MAT TESTER) Narrative Performed At [facility] Echocardiography Report [id number] [facility] [address], [place] [address] Pat.Name:GATUAM RAMIREZ Pat.ID:[id number] St.Date: 01/10/2019Refer.MD:NAYELY FLOOD MD Exam Time: 5:52:00 AMStudy Type:Routine Echo Height:72.99in Weight:154.66lb BSA: 1.93 m2 DOBAge:1940,78Y Sex: MALEBP:120/58 HR:83 bpmSonogrphr: IRVING Mendoza Pat. Stat.:Inpatient Room:[place] [address] Study Status:Final Echo Event ID:[id number] Order ID:[id number] Reason for Study:AFIB, elevated BNP Procedures:2D Echo, Colorflow Doppler, Strain, Portable, Stat Race: SUMMARY: LV EF is severely depressed. Inferoposterior [place] Tethered posterior mitral leaflet with Moderate mitral regurgitation. FINDINGS: LV: LV size is xprtlxgl-rx-qamslbvf enlarged. LV EF is severely depressed.Estimated EF is 20-30%. RV: RV size is normal. RV systolic function is normal. LA: LA volume is severely enlarged. RA: RA size is normal. AO: Aortic root diameter is normal. WILLIE: No pericardial effusion. AV: Moderate thickening and calcification of AV leaflets. A traceof aortic regurgitation. Mild to moderate aortic valvestenosis. PV: No structural PV abnormalities noted. TV: No structural TV abnormalities noted. A trace of tricuspid regurgitation MV: Moderate mitral regurgitation. Etiology of MR is secondary toLV dysfunction and remodeling. Chapa: LV relaxation is impaired. LV filling pressure is elevated. Other:Suboptimal/insufficient TR jet. Estimated PA systolic pressureis at least 40 mmHg, assuming a mean RAP of 5-10 mmHg. MEASUREMENTS: 2D Parasternal Long [place] Ds4.5 cmLVPWd1.1 cm LVOT 2.3 cmAo An2.3 cm LVIDd6.5 cmIndex3.3 cm/m Ao Rtd 3.6 cm Index1.9 cm/m LVIDs5.3 cm LV Smwp516 g(122-174) LV%fs 18.5 % LVM Lrxpd635.8 g/m2 IVSd 1.1 cmRWT0.3 LA Sng Plane LA Area 28.1 cm2(8.8-23.4) LA Vol98.8 ml Index51.2 ml/m LA LngAx 6.6 cm RA Sng Plane RA Area 20.1 cm2(8.3-19.5) RA Vol56.8 ml Index29.4 ml/m RA LngAx 6.4 cm DOPPLER AV For Flow/Valve Assess AV pkVel 252 cm/s (100-170) AV ET292 msec AV mnVel 163 cm/Veronica AC/ET 0.3 AV pkPG 25.4 mmHgAV TVI47.6 cm AV Mean G 13.8 mmHgAVpkAcRt 15064.1 cm/s2 AV AC100 msec (83-118) AV Area-Cont. Eq. LVOT Area3.8 cm2 AV TVI47.6 cm LVOT TVI15.7 cmAV Area1.3 cm2(3-5) AV SV 59.8 ml For Flow/Valve Assess WbWff166.5 cm/sTVI 48.7 cm MnPG13.5 mmHg WALL MOTION: RESTING WALL MOTION: Basal Inferior, Basal Inferolateral, Mid Inferior, Mid Inferolateral, Mid Anterolateral carvajal are akinetic.Basal Anterior, Basal Anteroseptal, Basal Inferoseptal, Mid Anterior, Mid Anteroseptal, Mid Inferoseptal, Apical Anterior, Apical Septal, Apical Inferior, Apical Lateral, Apical carvajal are hypokinetic. Wall Index=2.3 Signed 01/10/2019 10:39 AM Elina Mathews M.D. Procedure Note Interface, Radiology Results In - 01/10/2019 10:39 AM MAT TESTER Echocardiography Report [id number]Name: GAUTAM RAMIREZ Pat.ID: [id number] St.Date: 01/10/2019 Refer.MD: NAYELY FLOOD MD Exam Time: 5:52:00 AM Study Type:Routine Echo Height: 72.99in Weight: 154.66lb BSA: 1.93 m2 Age: 4 1940,78Y Sex: MALE BP: 120/58 HR: 83 bpm Sonogrphr: IRVING Mendoza Pat. Stat.:Inpatient Room: [place] [address] Study Status:Final Echo Event ID:[id number] Order ID: [id number] Reason for Study:AFIB, elevated BNP Procedures:2D Echo, Colorflow Doppler, Strain, Portable, Stat Race: SUMMARY: LV EF is severely depressed. Inferoposterior NY Tethered posterior mitral leaflet with Moderate mitral regurgitation. FINDINGS: LV: LV size is mimtybwp-lq-mxcqylpo enlarged. LV EF is severely depressed. Estimated EF is 20-30%. RV: RV size is normal. RV systolic function is normal. LA: LA volume is severely enlarged. RA: RA size is normal. AO: Aortic root diameter is normal. WILLIE: No pericardial effusion. AV: Moderate thickening and calcification of AV leaflets. A trace of aortic regurgitation. Mild to moderate aortic valve stenosis. PV: No structural PV abnormalities noted. TV: No structural TV abnormalities noted. A trace of tricuspid regurgitation MV: Moderate mitral regurgitation. Etiology of MR is secondary to LV dysfunction and remodeling. Chapa: LV relaxation is impaired. LV filling pressure is elevated. Other: Suboptimal/insufficient TR jet. Estimated PA systolic pressure is at least 40 mmHg, assuming a mean RAP of 5-10 mmHg. MEASUREMENTS: 2D Parasternal Long [place] LA Ds 4.5 cm LVPWd 1.1 cm LVOT 2.3 cm Ao An 2.3 cm LVIDd 6.5 cm Index 3.3 cm/m Ao Rtd 3.6 cm Index 1.9 cm/m LVIDs 5.3 cm LV Mass 320 g (122-174) LV%fs 18.5 % LVM Index 165.8 g/m2 IVSd 1.1 cm RWT 0.3 LA Sng Plane LA Area 28.1 cm2 (8.8-23.4) LA Vol 98.8 ml Index 51.2 ml/m LA LngAx 6.6 cm RA Sng Plane RA Area 20.1 cm2 (8.3-19.5) RA Vol 56.8 ml Index 29.4 ml/m RA LngAx 6.4 cm DOPPLER AV For Flow/Valve Assess AV pkVel 252 cm/s (100-170) AV ET 292 msec AV mnVel 163 cm/s AV AC/ET 0.3 AV pkPG 25.4 mmHg AV TVI 47.6 cm AV Mean G 13.8 mmHg AVpkAcRt 49487.1 cm/s2 AV AC 100 msec (83-118) AV Area-Cont. Eq. LVOT Area 3.8 cm2 AV TVI 47.6 cm LVOT TVI 15.7 cm AV Area 1.3 cm2 (3-5) AV SV 59.8 ml For Flow/Valve Assess PkVel 254.5 cm/s TVI 48.7 cm MnPG 13.5 mmHg WALL MOTION: RESTING WALL MOTION: Basal Inferior, Basal Inferolateral, Mid Inferior, Mid Inferolateral, Mid Anterolateral carvajal are akinetic. Basal Anterior, Basal Anteroseptal, Basal Inferoseptal, Mid Anterior, Mid Anteroseptal, Mid Inferoseptal, Apical Anterior, Apical Septal, Apical Inferior, Apical Lateral, Apical carvajal are hypokinetic. Wall Index=2.3 Signed 01/10/2019 10:39 AM Elina Mathews M.D. Performing Organization Address City/State/Zipcode Phone Number [facility] [address] [place] [address] Respiratory pathogen panel (01/10/2019 3:45 AM MAT TESTER) Respiratory pathogen Negative for all pathogens tested: ALTON YARSANISM panel Negative for Adenovirus [facility] Negative for Coronavirus HKU1 Negative for Coronavirus NL63 Negative for Coronavirus 229E Negative for Coronavirus OC43 Negative for Human Metapneumovirus Negative for Rhinovirus/Enterovirus Negative for Influenza A Negative for Influenza A/H1 Negative for Influenza A/H3 Negative for Influenza A/H1-2009 Negative for Influenza B Negative for Parainfluenza Virus 1 Negative for Parainfluenza Virus 2 Negative for Parainfluenza Virus 3 Negative for Parainfluenza Virus 4 Negative for Respiratory Syncytial Virus Negative for Bordetella pertussis Negative for Chlamydophila pneumoniae Negative for Mycoplasma pneumoniae This real-time PCR assay detects the presence of nucleic acids (RNA or DNA) for the respiratory pathogens listed. A result of "Not-detected" does not exclude the possibility of the presence of one or more pathogens at concentrations less than the detectable limits of the assay. Comment: Specimen Information Specimen Source: Nares Specimen Site: Right Specimen Nares - Right Performing Organization Address City/[facility]/Zipcode Phone Number [facility] DEPARTMENT OF PATHOLOGY AND [address] [place] [address] Gastrointestinal panel (01/10/2019 3:45 AM MAT TESTER) Gastrointestinal panel Positive for Giardia intestinalis (lamblia) [facility] Negative for all other pathogens tested: Negative for Salmonella Negative for Campylobacter Negative for Diarrheagenic E coli/Shigella Negative for Shiga-like toxin-producing E coli Negative for Plesiomonas shigelloides Negative for Yersinia enterocolitica Negative for Vibrio species Negative for Clostridium difficile (Toxin A/B) Negative for Cryptosporidium Negative for Cyclospora cayeteanensis Negative for Entamoeba histolytica Negative for Adenovirus F 40/41 Negative for Astrovirus Negative for Norovirus GI/GII Negative for Rotavirus A Negative for Sapovirus Negative for E coli 0157 This real-time PCR assay detects the presence of nucleic acids (RNA or DNA) for the gastrointestinal pathogens listed. A result of "Not-detected" does not exclude the possibility of the presence of one or more pathogens at concentrations less than the detectable limits of the assay. (A) Comment: Specimen Information Specimen Source: Stool Specimen Site: Nonpreserved Specimen Stool - Nonpreserved Performing Organization Address [facility] Centercode Phone Number [facility] DEPARTMENT OF PATHOLOGY AND [address] [place] [address] Occult blood, stool (01/10/2019 3:45 AM MAT TESTER) Occult blood, stool Positive for Occult blood (A) [facility] Comment: Specimen Information Specimen Source: Stool Specimen Site: Nonpreserved Specimen Stool - Nonpreserved Performing Organization Address City/[facility] Centercode Phone Number [facility] DEPARTMENT OF PATHOLOGY AND [address] [place] [address] Blood culture, aerobic & anaerobic (01/10/2019 3:45 AM MAT TESTER) Blood culture isolate No growth after 5 days of incubation. [facility] Comment: HOSPITAL Specimen Information Specimen Source: Blood Specimen Site: Forearm, left Specimen Blood - Forearm, left Performing Organization Address [facility] Centercode Phone Number [facility] DEPARTMENT OF PATHOLOGY AND [address] [place] [phone] [place] [phone] Fibrinogen (01/10/2019 3:45 AM MAT TESTER) Fibrinogen 284 200 - 450 mg/dL [facility] Specimen Blood Performing Organization Address [facility] Centercode Phone Number [facility] DEPARTMENT OF PATHOLOGY AND [address] [place] [phone] [place] [phone] D-dimer (01/10/2019 3:45 AM MAT TESTER) D-dimer 6.04 (H) 0.00 - 0.40 ug/mL FEU [facility] Comment: HOSPITAL Units are ug/ml Fibrinogen Equivalent Unit. When combined with low clinical probability, D-dimer results of less than 0.5 ug/ml FEU have a good negativepredictive value in excluding PE or DVT. For D-dimer results greater than 0.5ug/ml FEU further testing is indicated if PE or DVT is suspectedclinically. Elevated D-dimer results have been reported in DVT, PE, and DIC cases and may indicate the presence of a clot. D-dimer results may be elevated due to old age, , inflammatory diseases, trauma, post-operative states, sepsis, and malignancies. Specimen Blood Performing Organization Address [facility] Centercony Phone Number [facility] DEPARTMENT OF PATHOLOGY AND [address] [place] [phone] Type and screen (01/10/2019 3:45 AM MAT TESTER)Only the most recent of2 resultswithin the time period is included. ABO grouping A [facility] Rh type POS [facility] Antibody screen (gel) NEG [facility] Specimen Blood Performing Organization Address [facility]/Zipcode Phone Number [facility] DEPARTMENT OF PATHOLOGY AND [address] [place] [phone] [address] Lipase level (01/10/2019 3:45 AM MAT TESTER) Lipase 42 13 - 60 U/L [facility] Specimen Plasma specimen Performing Organization Address City/[facility] Centercode Phone Number [facility] DEPARTMENT OF PATHOLOGY AND [address] [place] [phone] Lactic acid level (01/10/2019 3:45 AM MAT TESTER) Lactic acid 2.5 (H) 0.5 - 2.2 mmol/L [facility] Specimen Plasma specimen Performing Organization Address City/[facility] Centercode Phone Number [facility] DEPARTMENT OF PATHOLOGY AND [address] [place] [phone] Creatine kinase, total (CPK) (01/10/2019 3:45 AM MAT TESTER) Creatine kinase 23 (L) 39 - 308 U/L [facility] Specimen Plasma specimen Performing Organization Address City/[facility] Centercode Phone Number [facility] DEPARTMENT OF PATHOLOGY AND [address] [place] [address] Amylase level (01/10/2019 3:45 AM MAT TESTER) Amylase 25 (L) 28 - 100 U/L [facility] Specimen Plasma specimen Performing Organization Address City/[facility] Phone Number [facility] DEPARTMENT OF PATHOLOGY AND [address] [place] [phone] Surgical pathology request (11/22/2018 5:30 PM MAT TESTER)Only the most recent of2 resultswithin the time period is included. [facility] DEPARTMENT OF PATHOLOGY AND GENOMIC MEDICINE Surgical pathology report See link below for PDF [facility] DEPARTMENT OF Lab Report PATHOLOGY AND GENOMIC MEDICINE Result status This is Final Report [facility] DEPARTMENT OF for [id number] PATHOLOGY AND GENOMIC MEDICINE Performing Organization Address City/[facility] Centercode Phone Number [facility] DEPARTMENT OF PATHOLOGY AND [address] [place] [address] GENOMIC MEDICINE Transfuse RBC (11/22/2018 5:20 PM MAT TESTER)Only the most recent of2 resultswithin the time period is included.Sodium level, syringe (11/21/2018 8:25 AM MAT TESTER) Sodium, syringe 144 135 - 148 mEq/L [facility] Specimen Blood Performing Organization Address City/[facility] Centercode Phone Number [facility] DEPARTMENT OF PATHOLOGY AND [address] [place] [phone] Potassium, syringe (11/21/2018 8:25 AM MAT TESTER) Potassium, syringe 3.3 (L) 3.5 - 5.0 mEq/L [facility] Specimen Blood Performing Organization Address City/[facility] Centercode Phone Number [facility] DEPARTMENT OF PATHOLOGY AND [address] [place] [phone] Lactic acid, syringe (11/21/2018 8:25 AM MAT TESTER) Lactic acid, syringe 0.9 0.5 - 2.2 mmol/L [facility] Specimen Blood Performing Organization Address City/[facility] Centercony Phone Number [facility] DEPARTMENT OF PATHOLOGY AND [address] [place] [phone] Ionized calcium, arterial (11/21/2018 8:25 AM MAT TESTER) Ionized calcium, arterial 1.05 (L) 1.11 - 1.32 mmol/L [facility] Specimen Blood Performing Organization Address [facility] Phone Number [facility] DEPARTMENT OF PATHOLOGY AND [address] [place] [phone] Hemoglobin, syringe (11/21/2018 8:25 AM MAT TESTER) Hemoglobin, syringe 11.7 (L) 14.0 - 18.0 g/dL [facility] Specimen Blood Performing Organization Address City/[facility] Centercode Phone Number [facility] DEPARTMENT OF PATHOLOGY AND [address] [place] [phone] Glucose level, syringe (11/21/2018 8:25 AM MAT TESTER) Glucose, syringe 85 65 - 99 mg/dL [facility] Specimen Blood Performing Organization Address City/[facility]/Zipcode Phone Number [facility] DEPARTMENT OF PATHOLOGY AND [address] [place] [phone] [place] [phone] Arterial blood gas (11/21/2018 8:25 AM MAT TESTER) pH, arterial 7.37 7.35 - 7.45 [facility] pCO2, arterial 36 35 - 45 mmHg [facility] pO2, arterial 196 (H) 80 - 90 mmHg [facility] Bicarbonate, arterial 20.4 (L) 21.0 - 28.0 mmol/L [facility] Base excess, arterial -4 (L) -2 - 2 mEq/L [facility] O2 saturation, arterial 99 95 - 100 % [facility] Specimen Blood Performing Organization Address City/[facility] Centercode Phone Number [facility] DEPARTMENT OF PATHOLOGY AND [address] [place] [phone] [place] [phone] ECG Pre/Post Op (11/15/2018 1:02 PM MAT TESTER) Ventricular rate 68 [facility] Atrial rate 68 [facility] SD interval 248 [facility] QRSD interval 110 [facility] QT interval 424 [facility] QTC interval 450 [facility] P axis 1 20 [facility] QRS axis 1 -5 [facility] T wave axis 2 [facility] EKG impression Sinus rhythm with 1st degree AV [facility] block-Anteroseptal infarct , age undetermined-Abnormal ECG-No previous ECGs available- Narrative Performed At Performing Organization Address City/[facility]cony Phone Number [facility] MUSE [address] [place] [address] Carcinoembryonic antigen (CEA) (11/15/2018 12:52 PM MAT TESTER) CEA 2.8 0.0 - 3.8 ng/mL [facility] Comment: Reference range for heavy smokers:0.0 - 5.5 ng/mL The JENNY Kathie 8000 CEA immunoassay was used. Results obtained with different assay methods or kits should not be used interchangeably and may be different. Specimen Serum Performing Organization Address City/State/Zipcode Phone Number [facility] DEPARTMENT OF PATHOLOGY AND [address] [place] [phone] [phone] [place] [address] Prepare RBC (11/15/2018 12:43 PM MAT TESTER)Only the most recent of2 resultswithin the time period is included. Product name Red Blood Cells -1, [facility] Unit number [id number] [facility] Product code [id number] [facility] Dispense status Transfused [facility] Blood expiration date [facility] Blood type code 6200 [facility] Blood type A POSITIVE [facility] Product name Red Blood Cells -1, [facility] Unit number [id number] [facility] Product code [id number] [facility] Dispense status Returned to BB not [facility] Blood expiration date [facility] Blood type code 6200 [facility] Blood type A POSITIVE [facility] Performing Organization Address City/State/Zipcode Phone Number [facility] DEPARTMENT OF PATHOLOGY AND [address] [place] [phone] [phone] [place] [address] after 03/13/2018 Insurance Payer Benefit Plan / Group Subscriber ID Type Phone Address [employer] MEDICARE AETNA MEDICARE HMO/PPO [facility] xxxxxxxx HMO (Home) [place] [address] Advance Directives Patient has advance care planning documents, and code status on file. For more information, please contact:[address] [address] Code Status Date Activated Date Inactivated Comments Full Code 11/21/2018 1:01 PM 11/26/2018 9:19 PM Code Status decision reached by: Patient
[2019-03-14 20:25] LABS: Urine Blood NEGATIVE (NEG); Urine Glucose NEGATIVE (NEG); Urine Protein 1+ (NEG)
[2019-03-14] MEDS ORDERED: NA CHLORIDE 0.9% 500 ML ONE ×3 (21:08→23:15)
[2019-03-14] MEDS ORDERED: ACETAMINOPHEN 500 MG TAB PO PRN (23:25)
[2019-03-14] MEDS ORDERED: ALBUTEROL 2.5 MG/3 ML NEB SOL NEB PRN (23:25)
[2019-03-14] MEDS: NA CHLORIDE 0.9% 1,000 ML IV SCH (23:25)
[2019-03-14] MEDS ORDERED: IPRATROPIUM BROM 0.5MG/2.5ML NEB PRN (23:25)
[2019-03-14] MEDS ORDERED: ONDANSETRON 4 MG/2 ML VIAL IV PRN (23:25)
[2019-03-15] MEDS ORDERED: PIPERACIL/TAZO 3.375 GM VIAL IV ONE ×2 (00:36→05:57)
[2019-03-15] MEDS ORDERED: NA CHLORIDE 0.9% 100 ML ONE ×2 (00:36→05:57)
[2019-03-15] MEDS: METHYLPREDNISOLONE 40 MG INJ IV SCH ×3 (00:58→17:25)
[2019-03-15] MEDS: PIPER/TAZO/NS 3.375gm 3.375 GM/100 ML BAG IVPB SCH ×3 (00:58→14:14)
[2019-03-15] MEDS ORDERED: NA CHLORIDE 0.9% 500 ML IV ONE (01:06)
[2019-03-15] MEDS ORDERED: NA CHLORIDE 0.9% 1,000 ML ONE (01:27)
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
[2019-03-15 05:59] LABS: BUN Blood Urea Nitrogen 22 mg/dL (7-18); Bicarbonate 19 mmol/L (21-32); Glucose Level 127 mg/dL (74-106); Potassium 3.9 mmol/L (3.5-5.1); Sodium Level 144 mmol/L (136-145)
[2019-03-15 06:08] LABS: Absolute Lymphocytes (CBC) 0.6 K/uL (0.7-4.9); Basophils % 0.1 % (0-1.3)
[2019-03-15 06:26] LABS: Absolute Monocytes 0.2 K/uL (0.1-1.3); Absolute Neutrophil 16.8 K/uL (1.8-8.0); Eosinophils % 0.1 % (0-4.4); Hematocrit 24.7 % (39.6-49.0); Lymphocytes % 3.2 % (15.3-44.8); Monocytes % 1.4 % (3.3-12.3); RBC Red Blood Cell Count 2.42 M/uL (4.33-5.43)
[2019-03-15 06:38] LABS: Magnesium 1.7 mg/dL (1.8-2.4)
[2019-03-15] MEDS ORDERED: MAGNESIUM SULFATE 1 gm IVPB 1 GM/100 ML BAG IV ONE (08:00)
[2019-03-15] MEDS: ENOXAPARIN 40 MG/0.4 ML SQ SCH (08:45)
[2019-03-15] MEDS ORDERED: POTASSIUM 25 MEQ EFFERV TAB PO ONE (09:00)
[2019-03-15 09:27] LABS: Anisocytosis 1+; Blood Morphology Comment NOTED (NOT SEEN); Macrocytosis 1+; Platelet Estimate DECR; Urine White Blood Cell Casts OK
[2019-03-15] MEDS: NA CHLORIDE 0.9% 1,000 ML IV SCH ×2 (14:13→19:25)
--- NOTE | 2019-03-15 15:36 | PN ---
Date of Progress Note: 03/15/2019 Subjective: Patient is seen and examined, chart reviewed and case discussed with RN. The patient st ates his cough is better, still having significant shortness of breath and requiring supplemental oxy gen. The patient's blood pressure has been on the low side, has remained in the ICU. Medications: List reviewed. Code Status: Full. Physical Examination: Vital signs: Temperature 97.6, heart rate 80, blood pressure 97/57, respirations 17, O2 is 100% on 2 liters via nasal cannula. General: Awake, alert, and oriented x3. Elderly male, ill-appearing, fra il. CV: S1, S2. Regular rate and rhythm. Peripheral pulses present. Respiratory: Moving air well. Some diminished breath sounds in the right base with rhonchi present. Gastrointestinal: Abdomen is soft, nontender, nondistended. Positive bowel sounds. No guarding or rigidity. The patient has colostomy bag in place with formed stool. Extremities: No clubbing, cyanosis, or edema. Neuro: Nonfocal. Cranial nerves 2 through 12 intact grossly. No focal neurological deficit. Psych: Mood is okay. Affect is full. Insight and judgment are good. Laboratory Data: Sodium 144, potassium 3.9, chloride 116, CO2 19, BUN 22, creatinine 0.8, glucose 12 7, calcium 7.3, magnesium 1.7. WBC 17.6, H and H 8 and 24.7, platelets 143, neutrophils 95.2%. Cult ures pending. Assessment And Plan: A 78-year-old male with; 1.Sepsis secondary to pneumonia. The patient is still hypotensive with systolic blood pressure in t he 80s. We will continue IV fluids. Currently not on any pressors. 2.Pneumonia, right lower lobe. Continue IV antibiotics. We will follow up on culture results. 3.Acute chronic obstructive pulmonary disease exacerbation. Continue on breathing treatments and st eroids. Continue supplemental oxygen. 4.Hypoxia. 5.Coagulopathy. 6.History of colon cancer, status post colostomy. 7.Elevated troponin level likely due to demand mismatch. Troponin level is 0.34. Plan; we will con tinue monitoring in ICU setting. Consult Cardiology. Doubt NSTEMI, no chest pain. We will monitor EKG. 8.Hypomagnesemia. We will replace and monitor. SA/MODL Voice ID: [id number] Report ID: [id number]
[2019-03-15 19:11] LABS: Urine Appearance CLOUDY; Urine Bilirubin NEGATIVE (NEG); Urine Blood NEGATIVE (NEG); Urine Color YELLOW; Urine Glucose NEGATIVE (NEG); Urine Protein TRACE (NEG); Urine Specific Gravity >=1.030 (1.005-1.030); Urine Urobilinogen 0.2 mg/dL (0.2-1.0)
[2019-03-15 19:40] LABS: Urine Bacteria 20-50 /HPF (NONE SEEN); Urine Culture Reflex Order REFLEXED; Urine RBC <5 /HPF (NONE SEEN)
--- NOTE | 2019-03-15 20:27 | CON ---
Reason For Consult: Abnormal troponin. History Of Present Illness: Mr. Ramirez is a gentleman, who has established coronary heart disease. I n December, a cardiac cath revealed stable CAD. No interventions were done. It was a catheterizatio n for preop evaluation before he went through a complicated surgery for colon cancer. His colon [employer] [facility] surgery was complicated by leaking of the anastomoses at least once, and maybe 2 separate times. Presently, he does not have a leak. He has a colostomy, seems to be doing better, but he started to get respiratory distress and now has a pneumonia in the right lung base. It appears to have gotten w orse over the interval time of a few days. He was given antibiotics as an outpatient before coming i n. The patient has a history of coronary heart disease, colon cancer, hypothyroidism. He has a hist ory of atrial fibrillation, hypertension, dyslipidemia, does not have diabetes. He was a cigarette s moker, but quit more than 20 years ago. Physical Examination: General: He appears a little bit thin. He is 6 feet tall, 157 pounds, body mass index 21. There is no temporal wasting. Lungs: Revealed crackles in both lung bases, it may be a little bit worse in the right. Abdomen: Soft. Extremities: Trace edema. Distal pulses barely palpable, but palpable. No sores. Heart: Regular rhythm. No significant murmur. Laboratory Data: The troponin level is 0.34. Procalcitonin level is 0.10. His thyroid function is normal. His white blood cell count is over 22,000 with a left shift. The neutrophil count is 92.7%, absolute neutrophil count 20,900, with elevated bands also, all consistent with pneumonia and sepsis . The patient's EKG shows an old septal ND, diffuse ST and T-wave changes. QRS is wide. He is in s inus rhythm. The EKG is not significantly different from older EKGs. Impression: My impression is that the troponin level being elevated is not an indication of acute co ronary syndrome, but he has severe fixed heart disease with sepsis and has a myocardial leak from sherry t. I do not think we need to engage in a cardiac cath any time soon unless there are some other sign s or symptoms developed of unstable heart disease. ELIZABETH/NAILA Voice ID: [id number] Report ID: [id number]
[2019-03-16] MEDS: METHYLPREDNISOLONE 40 MG INJ IV SCH ×2 (00:46→09:18)
[2019-03-16] MEDS: PIPER/TAZO/NS 3.375gm 3.375 GM/100 ML BAG IVPB SCH ×3 (00:46→16:18)
[2019-03-16 06:28] VITALS: BMI 22.2
[2019-03-16 06:44] LABS: Magnesium 2.1 mg/dL (1.8-2.4); Potassium 4.2 mmol/L (3.5-5.1)
[2019-03-16] MEDS: ENOXAPARIN 40 MG/0.4 ML SQ SCH (09:18)
[2019-03-16] MEDS: NA CHLORIDE 0.9% 1,000 ML IV SCH ×2 (09:19→15:25)
[2019-03-16] MEDS: MEGESTROL 400 MG/10 ML UCUP PO SCH (14:29)
[2019-03-16] MEDS: ALLOPURINOL 300 MG TAB PO SCH (14:29)
--- NOTE | 2019-03-16 15:34 | PN ---
Date of Progress Note: 03/16/2019 Subjective: The patient is seen and examined, chart reviewed, and case discussed with RN. The patie nt states he was unable to sleep last night, asking for his home medications, which still have not be en reconciled. The patient states his breathing is stable. Medications: List reviewed. Physical Examination: Vital Signs: Temperature 97.5, heart rate 74, blood pressure 99/58, respirations 20, O2 100% on 1 L via nasal cannula. General: Awake, alert, and oriented x3. Elderly male, ill appearing, not in any acute respiratory d istress. CVS: S1, S2. Irregularly irregular. Respiratory: Diminished breath sounds. Some rhonchi present. Gastrointestinal: Abdomen is soft, nontender, nondistended. Positive bowel sounds. No guarding or rigidity. Extremities: No clubbing, cyanosis, or edema. No calf tenderness. Neurologic: Nonfocal. Laboratory Data: Sodium 144, potassium 4.2, chloride 116, CO2 21, BUN 32, creatinine 0.99, glucose 1 23, calcium 7.9, magnesium 2.1. CBC is pending. Blood cultures no growth to date. Sputum culture s hows reduced quantity of respiratory robert. Assessment And Plan: A 78-year-old male with: 1.Sepsis secondary to pneumonia. The patient's blood pressure is improved. MAP has consistently st ayed above 65. Continue IV fluids. The patient never required any pressors. We will step down to t elemetry floor. 2.Pneumonia, right lower lobe. We will continue on IV antibiotics. Cultures are negative to date, improving, now on 1 L of O2, likely repeat chest x-ray in a.m. 3.Acute chronic obstructive pulmonary disease exacerbation. Continue nebulizer treatments. Wean of f steroids. Supplemental oxygen as needed. 4.Hypoxia, improving. 5.Coagulopathy. 6.History of atrial flutter. We will reconcile home medications. 7.History of colon cancer, status post colostomy. 8.Elevated troponin level likely due to demand mismatch. Appreciate Dr. Mullins' input. He does not think that this is acute coronary syndrome and does not recommend any cardiac cath at this time. We will follow up with his recommendations. 9.Hypomagnesemia. We will replace and monitor. Step down from ICU. SA/MODL Voice ID: [id number] Report ID: [id number]
--- NOTE | 2019-03-16 15:40 | PN ---
Mr. Ramirez is still dealing with severe infection, right lower lobe pneumonia. He does seem to be imp roving. Most of his blood pressures have been 96 to 98 systolic, so that is better. I do not think there are any active cardiac issues at this point. I will continue to follow Mr. Ramirez with you. ELIZABETH/NAILA Voice ID: [id number] Report ID: [id number]
[2019-03-16] MEDS: ATORVASTATIN 40 MG TAB PO SCH (20:05)
[2019-03-16] MEDS: FLUTICASONE IH SCH (20:09)
[2019-03-16] MEDS: SALMETEROL IH SCH (20:09)
[2019-03-16] MEDS ORDERED: METHYLPREDNISOLONE 40 MG INJ IV SCH (21:00)
--- NOTE | 2019-03-16 21:04 | EKG ---
Test Date: 2019-03-15 Test Time: 11:12:02 Recreational Counselor: RT-O MEASUREMENT RESULTS: Intervals: Rate: 78 VA: 250 QRSD: 120 QT: 446 QTc: 508 [place]: P: 45 VA: 250 QRS: -21 T: 159 INTERPRETIVE STATEMENTS: Sinus rhythm with 1st degree AV block Inferior infarct, age undetermined Anterior infarct, age undetermined ST & T wave abnormality, consider lateral ischemia Abnormal ECG Compared to ECG 03/15/2019 11:11:16 No significant changes Electronically Signed On 03-16-19 21:03:34 CDT by Porfirio Mullins
--- NOTE | 2019-03-16 21:05 | EKG ---
Test Date: 2019-03-14 Test Time: 18:58:57 [employer] Purchasing Agent: JELLY MEASUREMENT RESULTS: Intervals: Rate: 112 MA: 208 QRSD: 122 QT: 332 QTc: 453 [place]: P: 159 MA: 208 QRS: -34 T: 137 INTERPRETIVE STATEMENTS: Sins tachycardia Left axis deviation Inferior infarct, age undetermined ST & T wave abnormality, consider lateral ischemia Abnormal ECG Compared to ECG 01/09/2019 19:18:17 Atrial fibrillation no longer present Myocardial infarct finding still present Electronically Signed On 03-16-19 21:04:33 CDT by Porfirio Mullins
[2019-03-17] MEDS: NA CHLORIDE 0.9% 1,000 ML IV SCH (00:26)
[2019-03-17] MEDS: PIPER/TAZO/NS 3.375gm 3.375 GM/100 ML BAG IVPB SCH ×3 (00:27→16:58)
[2019-03-17] MEDS: LEVOTHYROXINE SOD 0.05 MG TABLET PO SCH (05:05)
[2019-03-17 05:37] LABS: Absolute Lymphocytes (CBC) 0.7 K/uL (0.7-4.9); Absolute Monocytes 0.2 K/uL (0.1-1.3); Absolute Neutrophil 14.9 K/uL (1.8-8.0); Basophils % 0.1 % (0-1.3); Hematocrit 27.6 % (39.6-49.0); Lymphocytes % 4.4 % (15.3-44.8); MPV 9.1 fL (7.6-11.3); Monocytes % 1.2 % (3.3-12.3)
[2019-03-17 06:08] LABS: Albumin 2.1 g/dL (3.4-5.0); Bilirubin Total 0.5 mg/dL (0.2-1.0); Potassium 4.6 mmol/L (3.5-5.1); Protein, Total 5.4 g/dL (6.4-8.2)
[2019-03-17] MEDS ORDERED: ZOLPIDEM TARTRATE 5 MG TABLET PO PRN (08:19)
--- NOTE | 2019-03-17 08:26 | RAD REPORT ---
EXAM DESCRIPTION: RAD - Chest Single View - 03/17/2019 6:30 am CLINICAL HISTORY: SOB Chest pain. COMPARISON: Chest Single View dated 03/14/2019; Chest Single View dated 01/09/2019; Chest Single View d ated 12/04/2018; Chest Single View dated 12/03/2018 FINDINGS: Portable technique limits examination quality. Moderate worsening in bibasilar lung aeration is seen since the comparative study, particularly notab le on the right. Pleural effusion is present on the right, new or enlarged since comparative radiogra ph. The heart is moderately enlarged in size. IMPRESSION: Moderate worsening in bibasilar lung aeration since comparative study
[2019-03-17] MEDS: predniSONE 20 MG TAB PO SCH ×2 (08:48→19:58)
[2019-03-17] MEDS: ENOXAPARIN 40 MG/0.4 ML SQ SCH (08:48)
[2019-03-17] MEDS: ASPIRIN EC 81 MG TAB PO SCH (08:48)
[2019-03-17] MEDS: ALLOPURINOL 300 MG TAB PO SCH (08:48)
[2019-03-17] MEDS: FLUTICASONE IH SCH ×2 (08:56→21:00)
[2019-03-17] MEDS: SALMETEROL IH SCH ×2 (08:56→21:00)
[2019-03-17] MEDS ORDERED: FUROSEMIDE 40 MG/4 ML VIAL IV ONE (10:15)
--- NOTE | 2019-03-17 11:26 | ECHO ---
HEIGHT: 6 ft 0 in WEIGHT: 164 lb 0 oz DATE OF STUDY: 03/17/[address]: Porfirio Mullins MD 2-DIMENSIONAL: YES M.MODE: YES DOPPLER: YES COLOR FLOW: YES TDS: NO PORTABLE: YES DEFINITY: NO BUBBLE STUDY: NO DIAGNOSIS: CORONARY ARTERY DISEASE, CONGESTIVE HEART FAILURE CARDIAC HISTORY: CATHERIZATION: YES SURGERY: NO PROSTHETIC VALVE: NO PACEMAKER: NO MEASUREMENTS (cm) DIASTOLIC (NORMALS) SYSTOLIC (NORMALS) IVSd 1.2 (0.6-1.2) LA Diam 4.3 (1.9-4.0) LVEF 33% LVIDd 4.3 (3.5-5.7) LVIDs 3.7 (2.0-3.5) %FS 15% LVPWd 1.4 (0.6-1.2) Ao Diam 3.1 (2.0-3.7) 2 DIMENSIONAL ASSESSMENT: RIGHT ATRIUM: NORMAL LEFT ATRIUM: DILATED RIGHT VENTRICLE: NORMAL LEFT VENTRICLE: NORMAL TRICUSPID VALVE: NORMAL MITRAL VALVE: NORMAL PULMONIC VALVE: NORMAL AORTIC VALVE: STENOSIS PERICARDIAL EFFUSION: NONE AORTIC ROOT: NORMAL LEFT VENTRICULAR WALL MOTION: GLOBAL HYPOKINESIS. DOPPLER/COLOR FLOW: MILD AORTIC STENOSIS PEAK/MEAN 23/12mmHg. ESTIMATED AORTIC VALVE AREA 1.5 CENTIMETERS SQUARED. MILD TO MODERATE MITRAL REGURGITATION. MILD TRICUSPID REGURGITATION. NORMAL RIGHT VENTRICULAR SYSTOLIC PRESSURE. COMMENTS: DEPRESSED LEFT VENTRICULAR EJECTION FRACTION. DILATED LEFT ATRIUM. MILD AORTIC STENOSIS. NO AORTIC REGURGITATION. MILD TO MODERATE MITRAL REGURGITATION. MILD TRICUSPID REGURGITATION. LARGE LEFT PLEURAL EFFUSION. TECHNOLOGIST: DMITRY MONTES
[2019-03-17] MEDS: MEGESTROL 400 MG/10 ML UCUP PO SCH (11:58)
--- NOTE | 2019-03-17 14:23 | PN ---
Date of Progress Note: 03/17/2019 Subjective: The patient was seen and examined. Chart reviewed and case discussed with RN. The bobby ent feels significantly better, was able to ambulate just around the ICU with physical therapy, did g et somewhat short winded. Medications: List reviewed. Physical Examination: Vital Signs: Temperature 97.5, heart rate 91, blood pressure 97/67, respirations 20, O2 100% on 1 L via nasal cannula. General: Awake, alert, oriented x3, elderly male. CV: S1, S2. Regular rate and rhythm. Respiratory: Diminished breath sounds. Some wheezing heard, improving. Gastrointestinal: Abdomen is soft, nontender, nondistended. Positive bowel sounds. Extremities: No clubbing, cyanosis, or edema. Neurologic: Nonfocal. Laboratory Data: Sodium 144, potassium 4.6, chloride 118, CO2 16, BUN 39, creatinine 1.05, glucose 1 08, calcium 7.8, magnesium 2.0, albumin is 2.1. WBC 15.8, H and H 9.2/27.6, platelets 190. Blood cu ltures showing no growth to date. Sputum culture shows reduced quantity of respiratory robert. Chest x-ray personally reviewed, shows moderate worsening in bibasilar lung aeration since comparative suad dy. Pleural effusion present on the right, new or enlarged. Assessment: A 78-year-old male with: 1.Sepsis, secondary to pneumonia improving. Blood pressure staying consistently on the lower side, however, MAP is above 65. The patient has been stepped down, however, no beds are available. 2.Pneumonia, right lower lobe. Chest x-ray looks worse today. We will discontinue IV fluids. The patient has developed worsening right pleural effusion. The patient is now tolerating diet. 3.Right pleural effusion. We will give trial of Lasix and monitor. 4.Acute chronic obstructive pulmonary disease exacerbation. Continue nebulizer treatments. Wean of f steroids, supplemental oxygen as needed, currently on 1 L of O2. 5.Hypoxia, improved. Wean off O2 as tolerated. 6.History of atrial flutter, not on any full-dose anticoagulation, currently in sinus rhythm. 7.History of colon cancer, status post colostomy. 8.Elevated troponin level, likely due to demand mismatch. No intervention recommended at this time. 9.Hypomagnesemia, replaced. Continue to monitor. Plan: Continue PT. Wean off O2. We will give Lasix today, likely discontinue in the next 24-48 ian rs depending on clinical response. WBC is trending down. /NAILA Voice ID: [id number] Report ID: [id number]
[2019-03-17] MEDS: ATORVASTATIN 40 MG TAB PO SCH (19:58)
[2019-03-18] MEDS: PIPER/TAZO/NS 3.375gm 3.375 GM/100 ML BAG IVPB SCH ×2 (00:58→08:23)
[2019-03-18 04:56] LABS: Absolute Lymphocytes (CBC) 0.4 K/uL (0.7-4.9); Absolute Monocytes 0.2 K/uL (0.1-1.3); Absolute Neutrophil 8.1 K/uL (1.8-8.0); Basophils % 0.2 % (0-1.3); Hematocrit 27.4 % (39.6-49.0); Lymphocytes % 4.7 % (15.3-44.8); MPV 9.2 fL (7.6-11.3); Monocytes % 2.1 % (3.3-12.3)
[2019-03-18 05:08] LABS: Albumin 2.1 g/dL (3.4-5.0); Bilirubin Total 0.6 mg/dL (0.2-1.0); Potassium 4.6 mmol/L (3.5-5.1)
[2019-03-18] MEDS: LEVOTHYROXINE SOD 0.05 MG TABLET PO SCH (05:20)
[2019-03-18] MEDS: ENOXAPARIN 40 MG/0.4 ML SQ SCH (08:22)
[2019-03-18] MEDS: predniSONE 20 MG TAB PO SCH (08:23)
[2019-03-18] MEDS: SALMETEROL IH SCH (08:23)
[2019-03-18] MEDS: ALLOPURINOL 300 MG TAB PO SCH (08:23)
[2019-03-18] MEDS: ASPIRIN EC 81 MG TAB PO SCH (08:23)
[2019-03-18] MEDS: FLUTICASONE IH SCH (08:23)
[2019-03-18 09:50] VITALS: O2SAT 98
[2019-03-18] MEDS: MEGESTROL 400 MG/10 ML UCUP PO SCH (11:24)
[2019-03-18 11:35] VITALS: BP 119/72; TEMP 97.5
--- NOTE | 2019-03-18 12:25 | P.DS ---
Admission Date: 03/14/19 Discharge Date: 03/18/19 Primary Care Provider: Dr. Ramos Disposition: DC HOME/HOME HEALTH CARE Discharge Condition: GOOD Reason for Admission: sepsis Consultations: Cardiology Procedures: Echocardiogram: Ejection fraction depress stat 33%, pleural effusion, dilated atria. Brief History of Present Illness: Mr Ramirez is a 78 years old male with multiple medical problems including, HTN, COPD, CAD, Hyperlipidemia, who was feeling weak for the last week, having more cough than usual. Yesterday he went to his PCP and was diagnosed with acute bronchitis, he was prescribed oral antibiotics. Today, the patient start with SOB, his start having bloody sputum, he was febrile at home 100.4F. At arrival the patient temp was 99.4 F, blood pressure on the lower side 81/51, tachycardic. Lab work remarkable for leukocytosis 22.5, with 2% bandemia, normal procalcitonin but elevated lactate. CXR shows right lower lobe pneumonia. Hospital Course: Patient was admitted the ICU for sepsis secondary to COPD exacerbation secondary to pneumonia. He was started on aggressive fluid resuscitation, IV antibiotics for possible aspiration pneumonia. He was started on breathing treatments IV steroids. His blood pressure was on the lower and, however his MAP remained above 65. He did not require any pressors throughout the stay. His blood pressure is improved, along with the symptoms. He was then transferred out of the ICU to the regular floor. He was continued on IV antibiotics with right lower lobe pneumonia. His cultures remain negative till date. His oxygen requirement decreased, and he was weaned to room air. His repeat chest x-ray worsened, with right pleural effusion. His IV fluids were discontinued and he was given a trial of Lasix. This held improved his breathing. He was weaned off the oxygen along with IV steroids. He does have a history of atrial flutter, not on any anticoagulation. He remained in sinus rhythm throughout the stay. His stay was complicated by elevated troponin levels. Cardiology was consulted. He remained asymptomatic from cardiac standpoint. No further cardiac workup was planned. Elevated troponins were likely secondary to demand mismatch and not due to acute coronary syndrome. He does have a history of colon cancer, status post colostomy. This remained stable throughout the stay. At the time of discharge, he was alert oriented, back to baseline. He was off of oxygen and symptomatically improved. He stated he wanted to go home to his . Social work was consulted but patient stated that he would like to go home. He already has home health [facility]. Social work was reconsulted for resuming home health with physical therapy upon discharge. He was hemodynamically stable and symptom free. He was ambulating without concerns and tolerating a diet. His diagnoses/treatment plan were explained. All questions were answered and patient verbalized understanding. He was then discharged home a safe and stable manner. He will follow up with his primary care physician in 2-3 days. He will need to complete a course of oral antibiotics for his pneumonia along with oral steroids. Vital Signs/Physical Exam: Temp Pulse Resp BP Pulse Ox 97.5 F 86 18 119/72 100 03/18/19 11:34 03/18/19 11:34 03/18/19 11:34 03/18/19 11:34 03/18/19 11:34 General: Alert, In no apparent distress HEENT: Atraumatic, PERRLA, EOMI Neck: Supple, JVD not distended Respiratory: Clear to auscultation bilaterally, Normal air movement Cardiovascular: Regular rate/rhythm, Normal S1 S2 Gastrointestinal: Normal bowel sounds, No tenderness Musculoskeletal: No tenderness Integumentary: No rashes Neurological: Normal speech, Normal tone, Normal affect Lymphatics: No axilla or inguinal lymphadenopathy Laboratory Data at Discharge: WBC 8.7 K/uL (4.3-10.9) D 03/18/19 04:31 Hgb 9.3 g/dL (13.6-17.9) L 03/18/19 04:31 Hct 27.4 % (39.6-49.0) L 03/18/19 04:31 Plt Count 141 K/uL (152-406) L D 03/18/19 04:31 PT 13.9 SECONDS (9.5-12.5) H 03/14/19 18:35 INR 1.19 03/14/19 18:35 APTT 27.3 SECONDS (24.3-36.9) 03/14/19 18:35 Sodium 144 mmol/L (136-145) 03/18/19 04:31 Potassium 4.6 mmol/L (3.5-5.1) 03/18/19 04:31 BUN 41 mg/dL (7-18) H 03/18/19 04:31 Creatinine 1.04 mg/dL (0.55-1.3) 03/18/19 04:31 Glucose 98 mg/dL (74-106) 03/18/19 04:31 Magnesium 2.0 mg/dL (1.8-2.4) 03/17/19 05:00 Total Bilirubin 0.6 mg/dL (0.2-1.0) 03/18/19 04:31 AST 22 U/L (15-37) 03/18/19 04:31 ALT 26 U/L (12-78) 03/18/19 04:31 Alkaline Phosphatase 134 U/L (45-117) H 03/18/19 04:31 Lipase 102 U/L (73-393) 03/14/19 18:35 Home Medications: Atorvastatin Calcium 40 mg PO BEDTIME 03/15/19 Fluticasone/Salmeterol [Advair Hfa 115-21 Mcg Inhaler] 2 puff BID 03/15/19 Isosorbide Mononitrate [Isosorbide Mononitrate ER] 15 mg PO DAILY 03/15/19 Levothyroxine [Synthroid] 50 mcg PO [id number] 03/15/19 Lisinopril [Zestril] 2.5 mg PO BID 03/15/19 Megestrol [Megace] 5 tab PO NOON 03/15/19 Zinc Sulfate [Zinc Sulfate*] 220 mg PO DAILY 03/15/19 Allopurinol 300 mg PO DAILY 03/16/19 Aspirin [Lo-Dose Aspirin EC] 81 mg PO DAILY 03/16/19 levoFLOXacin [Levaquin] 500 mg PO DAILY #6 tab 03/18/19 predniSONE [Prednisone*] 20 mg PO BID #14 tab 03/18/19 New Medications: levoFLOXacin [Levaquin] 500 mg PO DAILY #6 tab predniSONE [Prednisone*] 20 mg PO BID #14 tab Patient Discharge Instructions: Please follow up with the primary care physician in 2-3 days. New medications: Levaquin, an antibiotic for your pneumonia. Prednisone, steroid. Please return to the emergency room for worsening symptoms. Diet: AHA Activity: Ad keiko Followup: Jaspal Ramos MD [Primary Care Provider] - 2-3 Days Time spent managing pt's care (in minutes): 55
--- NOTE | 2019-03-18 19:21 | PN ---
Date of Progress Note: 03/18/2019 Mr. Ramirez was admitted on 03/14/[address] Macias. He has been followed by Dr. Mullins intermittently . He came in with sepsis, pneumonia, elevated troponin. Echocardiogram showed a large pleural effus ion, ejection fraction 33%, mild aortic stenosis. He is actually feeling much better on his antibiot ics, slightly short of breath in sinus rhythm. No change in plan at this point. We will see him in the office in the next 2-4 weeks after discharge. GORDY/NAILA Voice ID: [id number] Report ID: [id number]
== END 2019-03-18 14:37 | disposition home health service (06) | DRG 871 ==
LOC: ER 17:59 → ERHOLD 20:31 → 3RD-ICU 23:37 → 4TH 03-17 14:50
PROVIDERS: ADMIT Internal Medicine; ATTEND Family Medicine
DX: A41.9 Sepsis, unspecified organism (principal); J18.1 Lobar pneumonia, unspecified organism; J44.0 Chronic obstructive pulmonary disease with (acute) lower respiratory infection; J44.1 Chronic obstructive pulmonary disease with (acute) exacerbation; R64 Cachexia; J90 Pleural effusion, not elsewhere classified; I25.10 Atherosclerotic heart disease of native coronary artery without angina pectoris; I10 Essential (primary) hypertension; E78.5 Hyperlipidemia, unspecified; Z68.22 Body mass index [BMI] 22.0-22.9, adult; Z93.3 Colostomy status; E83.42 Hypomagnesemia; Z87.891 Personal history of nicotine dependence; Z85.038 Personal history of other malignant neoplasm of large intestine
CPT/HCPCS: 36415; 71045; 80048; 80053; 80076; 81001; 81003; 82550; 82553; 82805; 82962; 83605; 83690; 83735; 84145; 84443; 84484; 85025; 85610; 85730; 86850; 86900; 86901; 87040; 87070; 87086; 87088; 87205; 93005; 93306; 94760; 96361; 96365; 96367; 96375; 97116; 97162; 97530; 99285; J1650; J1940; J2543; J2550; J2920; J3475; J7030; J7512

== ENCOUNTER 2019-04-06 11:32 | Emergency (ER) | payer OTHER ==
--- OUTSIDE RECORDS SUMMARY | 2019-04-06 11:37 | XMS REPORT | Clinical Summary ---
:1940 Author Organization [facility] Address [address] [place] [address] Care Team Providers Name Role Phone Jaspal [...] Cardiology MD Pieter LV GRAM WITH CORS [[id number] (CPT)] 01/10/2019 - Hospital Encounter Neurosurgery Nayely Flood Anemia due to acute blood loss (Primary Dx); 01/23/2019 MD Joaquin Orozco; Coronary artery disease without angina pectoris, unspecified vessel or lesion type, unspecified whether [place] or transplanted heart; Pulmonary hypertension (HCC) 01/09/2019 Intake Access N/A 12/02/2018 Intake Access N/A 11/22/2018 Anesthesia Event General Surgery Ksasidy Hansen, DECAL DECORATOR 11/22/2018 Surgery General Surgery Jonn Mora DIAGNOSTIC MD Toño LAPAROSCOPY, REVISION OF ANASTOMOSIS, DRAINAGE OF HEMATOMA 11/21/2018 Anesthesia Event General Surgery Shanna Machado, COLLEGE ADMINISTRATOR 11/21/2018 Surgery General Surgery Jonn Mora SINGLE [...] of ascending colon (HCC) (Primary Dx) after 04/05/2018 Family History Medical History Relation Name Comments [...] (155 lb 6.8 oz) 01/10/2019 3:00 AM [facility] Height 185.4 cm (6' 1") 01/10/2019 3:00 AM [facility] Body Mass Index 20.51 01/10/2019 3:00 AM [facility] Plan of Treatment Date Type Specialty Care Team Description 04/10/2019 Office Visit General Surgery Jonn Mora MD [id number] [address] Health Maintenance Due Date Last Done Comments [...] vessel section. or lesion type, unspecified whether [place] or transplanted heart Pulmonary hypertension (HCC) ESTIMATED [...] Routine 01/18/2019 5:28 Results for this PM [facility] procedure are in the results section. POC GLUCOSE Routine 01/18/2019 11:48 Results for this AM [facility] procedure are in the results section. POC GLUCOSE Routine 01/18/2019 7:40 Results for this AM [facility] procedure are in the results section. ESTIMATED GFR Routine 01/18/2019 4:52 Results for this AM [facility] procedure are in the results section. PARTIAL THROMBOPLASTIN Routine 01/18/2019 4:52 Results for this TIME (PTT) AM [facility] procedure are in the results section. PROTHROMBIN TIME WITH Routine 01/18/2019 4:52 Results for this INR AM [facility] procedure are in the results section. COMPREHENSIVE METABOLIC Routine 01/18/2019 4:52 Results for this PANEL AM [facility] procedure are in the results section. B NATRIURETIC PEPTIDE Routine 01/18/2019 4:52 Results for this AM [facility] procedure are in the results section. POC GLUCOSE Routine 01/17/2019 9:31 Results for this PM [facility] procedure are in the results section. HC COMPLETE BLD COUNT Routine 01/17/2019 4:40 Results for this W/AUTO DIFF AM [facility] procedure are in the results section. ESTIMATED GFR Routine 01/17/2019 4:00 Results for this AM [facility] procedure are in the results section. MAGNESIUM LEVEL Routine 01/17/2019 4:00 Results for this AM [facility] procedure are in the results section. BASIC METABOLIC PANEL Routine 01/17/2019 4:00 Results for this AM [facility] procedure are in the results section. CONSULT TO OSTOMY CARE Routine 01/16/2019 4:32 NURSE PM [facility] ECHOCARDIOGRAM 2D Routine 01/16/2019 12:25 Results for this LIMITED PM [facility] procedure are in the results section. B NATRIURETIC PEPTIDE Routine 01/16/2019 6:05 Results for this AM [facility] procedure are in the results section. ESTIMATED GFR Routine 01/16/2019 4:00 Results for this AM [facility] procedure are in the results section. BASIC METABOLIC PANEL Routine 01/16/2019 4:00 Results for this AM [facility] procedure are in the results section. MAGNESIUM LEVEL Routine 01/16/2019 4:00 Results for this AM [facility] procedure are in the results section. VANCOMYCIN LEVEL, TROUGH Routine 01/16/2019 4:00 Results for this AM [facility] procedure are in the results section. POC GLUCOSE Routine 01/15/2019 5:53 Results for this PM [facility] procedure are in the results section. POC GLUCOSE Routine 01/15/2019 12:02 Results for this PM [facility] procedure are in the results section. ECG 12-LEAD Routine 01/15/2019 8:20 Results for this AM [facility] procedure are in the results section. POC GLUCOSE Routine 01/15/2019 7:58 Results for this AM [facility] procedure are in the results section. ESTIMATED GFR Routine 01/15/2019 5:10 Results for this AM [facility] procedure are in the results section. MAGNESIUM LEVEL Routine 01/15/2019 5:10 Results for this AM [facility] procedure are in the results section. BASIC METABOLIC PANEL Routine 01/15/2019 5:10 Results for this AM [facility] procedure are in the results section. POC GLUCOSE Routine 01/14/2019 8:53 Results for this PM [facility] procedure are in the results section. POC GLUCOSE Routine 01/14/2019 5:43 Results for this PM [facility] procedure are in the results section. POC GLUCOSE Routine 01/14/2019 11:59 Results for this AM [facility] procedure are in the results section. VANCOMYCIN LEVEL, TROUGH Routine 01/14/2019 11:05 Results for this AM [facility] procedure are in the results section. GRAM STAIN Routine 01/14/2019 11:05 Results for this AM [facility] procedure are in the results section. AEROBIC CULTURE Routine 01/14/2019 11:05 Results for this AM [facility] procedure are in the results section. ANAEROBIC CULTURE Routine 01/14/2019 10:05 Results for this AM [facility] procedure are in the results section. POC GLUCOSE Routine 01/14/2019 7:59 Results for this AM [facility] procedure are in the results section. B NATRIURETIC PEPTIDE Routine 01/14/2019 5:00 Results for this AM [facility] procedure are in the results section. HC COMPLETE BLD COUNT Routine 01/14/2019 5:00 Results for this W/AUTO DIFF AM [facility] procedure are in the results section. ESTIMATED GFR Routine 01/14/2019 4:00 Results for this AM [facility] procedure are in the results section. BASIC METABOLIC PANEL Routine 01/14/2019 4:00 Results for this AM [facility] procedure are in the results section. HIV AG/AB COMBINATION Routine 01/14/2019 4:00 Results for this AM [facility] procedure are in the results section. POC GLUCOSE Routine 01/13/2019 8:40 Results for this PM [facility] procedure are in the results section. POC GLUCOSE Routine 01/13/2019 6:02 Results for this PM [facility] procedure are in the results section. POC GLUCOSE Routine 01/13/2019 12:16 Results for this PM [facility] procedure are in the results section. US CAROTID DUPLEX Routine 01/13/2019 9:45 Results for this BILATERAL AM [facility] procedure are in the results section. POC GLUCOSE Routine 01/13/2019 7:51 Results for this AM [facility] procedure are in the results section. ESTIMATED GFR Routine 01/13/2019 3:30 Results for this AM [facility] procedure are in the results section. VITAMIN B12 LEVEL Routine 01/13/2019 3:30 Results for this AM [facility] procedure are in the results section. TOTAL IRON BINDING Routine 01/13/2019 3:30 Results for this CAPACITY AM [facility] procedure are in the results section. RETICULOCYTE COUNT Routine 01/13/2019 3:30 Results for this AM [facility] procedure are in the results section. FOLATE LEVEL Routine 01/13/2019 3:30 Results for this AM [facility] procedure are in the results section. PHOSPHORUS LEVEL Routine 01/13/2019 3:30 Results for this AM [facility] procedure are in the results section. MAGNESIUM LEVEL Routine 01/13/2019 3:30 Results for this AM [facility] procedure are in the results section. CBC WITH PLATELET AND Routine 01/13/2019 3:30 Results for this DIFFERENTIAL AM [facility] procedure are in the results section. BASIC METABOLIC PANEL Routine 01/13/2019 3:30 Results for this AM [facility] procedure are in the results section. POC GLUCOSE Routine 01/12/2019 8:54 Results for this PM [facility] procedure are in the results section. ESTIMATED GFR Timed 01/12/2019 7:30 Results for this PM [facility] procedure are in the results section. MAGNESIUM LEVEL Timed 01/12/2019 7:30 Results for this PM [facility] procedure are in the results section. BASIC METABOLIC PANEL Timed 01/12/2019 7:30 Results for this PM [facility] procedure are in the results section. POC GLUCOSE Routine 01/12/2019 12:13 Results for this PM [facility] procedure are in the results section. POC GLUCOSE Routine 01/12/2019 8:05 Results for this AM [facility] procedure are in the results section. ESTIMATED GFR Routine 01/12/2019 5:50 Results for this AM [facility] procedure are in the results section. COMPREHENSIVE METABOLIC Routine 01/12/2019 5:50 Results for this PANEL AM [facility] procedure are in the results section. HC COMPLETE BLD COUNT Routine 01/12/2019 5:50 Results for this W/AUTO DIFF AM [facility] procedure are in the results section. T3, FREE Routine 01/12/2019 5:50 Results for this AM [facility] procedure are in the results section. T4, FREE Routine 01/12/2019 5:50 Results for this AM [facility] procedure are in the results section. THYROID STIMULATING Routine 01/12/2019 5:50 Results for this HORMONE AM [facility] procedure are in the results section. CORTISOL LEVEL, AM Routine 01/12/2019 5:50 Results for this AM [facility] procedure are in the results section. POC GLUCOSE Routine 01/11/2019 9:13 Results for this PM [facility] procedure are in the results section. POC GLUCOSE Routine 01/11/2019 4:58 Results for this PM [facility] procedure are in the results section. THYROID PEROXIDASE Routine 01/11/2019 1:10 Results for this ANTIBODY PM [facility] procedure are in the results section. POC GLUCOSE Routine 01/11/2019 12:25 Results for this PM [facility] procedure are in the results section. ECG 12-LEAD Routine 01/11/2019 11:15 Results for this AM [facility] procedure are in the results section. POC GLUCOSE Routine 01/11/2019 7:45 Results for this AM [facility] procedure are in the results section. ESTIMATED GFR Routine 01/11/2019 3:30 Results for this AM [facility] procedure are in the results section. IONIZED CALCIUM Routine 01/11/2019 3:30 Results for this AM [facility] procedure are in the results section. PHOSPHORUS LEVEL Routine 01/11/2019 3:30 Results for this AM [facility] procedure are in the results section. MAGNESIUM LEVEL Routine 01/11/2019 3:30 Results for this AM [facility] procedure are in the results section. HEPATIC FUNCTION PANEL Routine 01/11/2019 3:30 Results for this AM [facility] procedure are in the results section. HC COMPLETE BLD COUNT Routine 01/11/2019 3:30 Results for this W/AUTO DIFF AM [facility] procedure are in the results section. BASIC METABOLIC PANEL Routine 01/11/2019 3:30 Results for this AM [facility] procedure are in the results section. POC GLUCOSE Routine 01/11/2019 1:06 Results for this AM [facility] procedure are in the results section. POC GLUCOSE Routine 01/10/2019 8:35 Results for this PM [facility] procedure are in the results section. TROPONIN Timed 01/10/2019 8:10 Results for this PM [facility] procedure are in the results section. HEMOGLOBIN & HEMATOCRIT Timed 01/10/2019 8:10 Results for this PM [facility] procedure are in the results section. POC GLUCOSE Routine 01/10/2019 5:19 Results for this PM [facility] procedure are in the results section. THYROID STIMULATING Routine 01/10/2019 5:16 Results for this HORMONE PM [facility] procedure are in the results section. HEPATITIS ACUTE PANEL Routine 01/10/2019 5:16 Results for this PM [facility] procedure are in the results section. T4 Routine 01/10/2019 5:16 Results for this PM [facility] procedure are in the results section. CONSULT TO OSTOMY CARE Routine 01/10/2019 4:47 NURSE PM [facility] TROPONIN Routine 01/10/2019 1:06 Results for this PM [facility] procedure are in the results section. HEMOGLOBIN & HEMATOCRIT STAT 01/10/2019 12:15 Results for this PM [facility] procedure are in the results section. LACTIC ACID LEVEL, Timed 01/10/2019 12:15 Results for this SEPSIS - NOW AND REPEAT PM [facility] procedure are in 2X EVERY 3 HOURS the results section. CREATININE LEVEL, URINE, Routine 01/10/2019 12:12 Results for this RANDOM PM [facility] procedure are in the results section. SODIUM LEVEL, URINE, Routine 01/10/2019 12:12 Results for this RANDOM PM [facility] procedure are in the results section. POC GLUCOSE Routine 01/10/2019 12:01 Results for this PM [facility] procedure are in the results section. ECG 12-LEAD Routine 01/10/2019 11:33 Results for this AM [facility] procedure are in the results section. CT HEAD WO CONTRAST STAT 01/10/2019 11:23 Results for this AM [facility] procedure are in the results section. CT ABDOMEN PELVIS WO STAT 01/10/2019 11:23 Results for this CONTRAST AM [facility] procedure are in the results section. XR PICC CHEST PORTABLE Routine 01/10/2019 11:00 [place] Results for this AM [facility] procedure are in the results section. HC CATH DUAL LUMEN PICC Routine 01/10/2019 9:58 Results for this AM [facility] procedure are in the results section. HC US GUIDED VASCULAR Routine 01/10/2019 9:58 Results for this ACCESS AM [facility] procedure are in the results section. HC CVL PICC INSERT 5 YRS Routine 01/10/2019 9:58 Results for this OR > W/O IMG GUID AM [facility] procedure are in the results section. LACTIC ACID LEVEL, Timed 01/10/2019 9:14 Results for this SEPSIS - NOW AND REPEAT AM [facility] procedure are in 2X EVERY 3 HOURS the results section. POC GLUCOSE Routine 01/10/2019 8:33 Results for this AM [facility] procedure are in the results section. URINE CULTURE Routine 01/10/2019 7:31 Results for this AM [facility] procedure are in the results section. URINALYSIS SCREEN AND Routine 01/10/2019 7:24 Results for this MICROSCOPY, WITH REFLEX AM [facility] procedure are in TO CULTURE the results section. XR ABDOMEN 1 VW PORTABLE Routine 01/10/2019 6:53 Results for this AM [facility] procedure are in the results section. XR CHEST 1 VW PORTABLE STAT 01/10/2019 6:53 Results for this AM [facility] procedure are in the results section. LACTIC ACID LEVEL, Timed 01/10/2019 6:45 Results for this SEPSIS - NOW AND REPEAT AM [facility] procedure are in 2X EVERY 3 HOURS the results section. ECHOCARDIOGRAM 2D STAT 01/10/2019 6:28 Results for this COMPLETE W MMODE AM [facility] procedure are in SPECTRAL COLOR DOPPLER the results (77937) section. POC GLUCOSE Routine 01/10/2019 4:27 Results for this AM [facility] procedure are in the results section. ESTIMATED GFR STAT 01/10/2019 3:45 Results for this AM [facility] procedure are in the results section. CREATINE KINASE, TOTAL STAT 01/10/2019 3:45 Results for this (CPK) AM [facility] procedure are in the results section. TYPE AND SCREEN STAT 01/10/2019 3:45 Results for this AM [facility] procedure are in the results section. B NATRIURETIC PEPTIDE STAT 01/10/2019 3:45 Results for this AM [facility] procedure are in the results section. TROPONIN STAT 01/10/2019 3:45 Results for this AM [facility] procedure are in the results section. PROTHROMBIN TIME WITH STAT 01/10/2019 3:45 Results for this INR AM [facility] procedure are in the results section. PHOSPHORUS LEVEL STAT 01/10/2019 3:45 Results for this AM [facility] procedure are in the results section. PARTIAL THROMBOPLASTIN STAT 01/10/2019 3:45 Results for this TIME (PTT) AM [facility] procedure are in the results section. MAGNESIUM LEVEL STAT 01/10/2019 3:45 Results for this AM [facility] procedure are in the results section. LIPASE LEVEL STAT 01/10/2019 3:45 Results for this AM [facility] procedure are in the results section. LACTIC ACID LEVEL STAT 01/10/2019 3:45 Results for this AM [facility] procedure are in the results section. IONIZED CALCIUM STAT 01/10/2019 3:45 Results for this AM [facility] procedure are in the results section. HEPATIC FUNCTION PANEL STAT 01/10/2019 3:45 Results for this AM [facility] procedure are in the results section. FIBRINOGEN STAT 01/10/2019 3:45 Results for this AM [facility] procedure are in the results section. D-DIMER STAT 01/10/2019 3:45 Results for this AM [facility] procedure are in the results section. COMPREHENSIVE METABOLIC STAT 01/10/2019 3:45 Results for this PANEL AM [facility] procedure are in the results section. HC COMPLETE BLD COUNT STAT 01/10/2019 3:45 Results for this W/AUTO DIFF AM [facility] procedure are in the results section. AMYLASE LEVEL STAT 01/10/2019 3:45 Results for this AM [facility] procedure are in the results section. GASTROINTESTINAL PANEL Routine 01/10/2019 3:45 Results for this AM [facility] procedure are in the results section. GRAM STAIN Routine 01/10/2019 3:45 Results for this AM [facility] procedure are in the results section. ANAEROBIC CULTURE Routine 01/10/2019 3:45 Results for this AM [facility] procedure are in the results section. AEROBIC CULTURE Routine 01/10/2019 3:45 Results for this AM [facility] procedure are in the results section. OCCULT BLOOD, STOOL Routine 01/10/2019 3:45 Results for this AM [facility] procedure are in the results section. BLOOD CULTURE, AEROBIC & Routine 01/10/2019 3:45 Results for this ANAEROBIC AM [facility] procedure are in the results section. RESPIRATORY PATHOGEN Routine 01/10/2019 3:45 Results for this PANEL AM [facility] procedure are in the results section. POC GLUCOSE Routine 01/10/2019 3:12 Results for this AM [facility] procedure are in the results section. ECG 12-LEAD STAT 01/10/2019 2:51 Results for this AM [facility] procedure are in the results section. ESTIMATED GFR Routine 11/26/2018 5:38 Results for this AM [facility] procedure are in the results section. HEMOGLOBIN & HEMATOCRIT Routine 11/26/2018 5:38 Results for this AM [facility] procedure are in the results section. BASIC METABOLIC PANEL Routine 11/26/2018 5:38 Results for this AM [facility] procedure are in the results section. ESTIMATED GFR Routine 11/25/2018 9:03 Results for this AM [facility] procedure are in the results section. BASIC METABOLIC PANEL Routine 11/25/2018 9:03 Results for this AM [facility] procedure are in the results section. HC COMPLETE BLD COUNT Routine 11/25/2018 7:30 Results for this W/AUTO DIFF AM [facility] procedure are in the results section. ESTIMATED GFR Routine 11/24/2018 4:05 Results for this AM [facility] procedure are in the results section. PHOSPHORUS LEVEL Routine 11/24/2018 4:05 Results for this AM [facility] procedure are in the results section. MAGNESIUM LEVEL Routine 11/24/2018 4:05 Results for this AM [facility] procedure are in the results section. BASIC METABOLIC PANEL Routine 11/24/2018 4:05 Results for this AM [facility] procedure are in the results section. HC COMPLETE BLD COUNT Routine 11/24/2018 4:05 Results for this W/AUTO DIFF AM [facility] procedure are in the results section. HEMOGLOBIN & HEMATOCRIT Timed 11/23/2018 3:00 Results for this PM [facility] procedure are in the results section. HC COMPLETE BLD COUNT Routine 11/23/2018 4:05 Results for this W/AUTO DIFF AM [facility] procedure are in the results section. ESTIMATED GFR Routine 11/23/2018 4:00 Results for this AM [facility] procedure are in the results section. PHOSPHORUS LEVEL Routine 11/23/2018 4:00 Results for this AM [facility] procedure are in the results section. MAGNESIUM LEVEL Routine 11/23/2018 4:00 Results for this AM [facility] procedure are in the results section. BASIC METABOLIC PANEL Routine 11/23/2018 4:00 Results for this AM [facility] procedure are in the results section. HC COMPLETE BLD COUNT Timed 11/22/2018 9:15 Results for this W/AUTO DIFF PM [facility] procedure are in the results section. ESTIMATED GFR Timed 11/22/2018 8:00 Results for this PM [facility] procedure are in the results section. BASIC METABOLIC PANEL Timed 11/22/2018 8:00 Results for this PM [facility] procedure are in the results section. SURGICAL PATHOLOGY Routine 11/22/2018 5:30 Results for this REQUEST PM [facility] procedure are in the results section. TRANSFUSE RED BLOOD Routine 11/22/2018 5:20 CELLS PM [facility] TRANSFUSE RED BLOOD STAT 11/22/2018 4:09 CELLS PM [facility] TX AN EMERGENT Routine 11/22/2018 3:52 ENDOTRACHEAL AIRWAY PM [facility] Procedure Note - Kassidy Hansen CRNA - 11/22/2018 3:52 PM [facility] ANESTHESIA INTUBATION Date/Time: 11/22/2018 3:25 PM Performed by: Kassidy Hansen CRNA Authorized by: Felipe Trejo MD Location: OR Urgency: Emergent Difficult Airway: No Anesthesiologist: Rodrigo Oates MD Resident/DECAL DECORATOR/AA: Kassidy Hansen CRNA Performed by: resident/DECAL DECORATOR/AA Consent Cannot be Obtained Due to Urgency: [...] SUCCESSFULL SIGMOIDECTOMY, 11/22/2018 2:50 PM bleeding LAPAROSCOPIC [facility] ESTIMATED GFR Timed 11/22/2018 12:15 PM Results for this [facility] procedure are in the results section. HC COMPLETE BLD COUNT Timed 11/22/2018 12:15 PM Results for this W/AUTO DIFF [facility] procedure are in the results section. PHOSPHORUS LEVEL Timed 11/22/2018 12:15 PM Results for this [facility] procedure are in the results section. BASIC METABOLIC PANEL Timed 11/22/2018 12:15 PM Results for this [facility] procedure are in the results section. ESTIMATED GFR Routine 11/22/2018 3:40 AM Results for this [facility] procedure are in the results section. PHOSPHORUS LEVEL Routine 11/22/2018 3:40 AM Results for this [facility] procedure are in the results section. MAGNESIUM LEVEL Routine 11/22/2018 3:40 AM Results for this [facility] procedure are in the results section. BASIC METABOLIC PANEL Routine 11/22/2018 3:40 AM Results for this [facility] procedure are in the results section. HC COMPLETE BLD COUNT Routine 11/22/2018 3:00 AM Results for this W/AUTO DIFF [facility] procedure are in the results section. SURGICAL PATHOLOGY REQUEST Routine 11/21/2018 1:12 PM Results for this [facility] procedure are in the results section. TX AN ELECTIVE Routine 11/21/2018 8:35 AM ENDOTRACHEAL AIRWAY [facility] Procedure Note - Yaima Krause CRNA - 11/21/2018 8:35 AM [facility] Airway Date/Time: 11/21/2018 8:02 AM Performed by: [...] easily. MAGNESIUM LEVEL STAT 11/21/2018 8:25 AM [facility] IONIZED CALCIUM, ARTERIAL STAT 11/21/2018 8:25 AM [facility] GLUCOSE LEVEL, SYRINGE STAT 11/21/2018 8:25 AM [facility] HEMOGLOBIN, SYRINGE STAT 11/21/2018 8:25 AM [facility] POTASSIUM, SYRINGE STAT 11/21/2018 8:25 AM [facility] SODIUM LEVEL, SYRINGE STAT 11/21/2018 8:25 AM [facility] ARTERIAL BLOOD GAS STAT 11/21/2018 8:25 AM [facility] LACTIC ACID, SYRINGE STAT 11/21/2018 8:25 AM [facility] ARTERIAL LINE Routine 11/21/2018 8:14 AM [facility] Procedure Note - Felipe Trejo MD - 11/21/2018 8:14 AM [facility] Arterial line Performed by: Felipe Trejo MD [...] immediate complications COLECTOMY, PARTIAL, 11/21/2018 7:30 AM [facility] Cancer of ascending colon LAPAROSCOPIC (HCC) Special Needs EST 2 HRS, TF~1400, REQ 1200 START ECG PRE/POST OP Routine 11/15/2018 1:02 PM Preop testing Results for this [facility] procedure are in the results section. CARCINOEMBRYONIC ANTIGEN Routine 11/15/2018 12:52 PM Preop testing Results for this (CEA) [facility] procedure are in the results section. PREPARE RBC Routine 11/15/2018 12:43 PM Results for this [facility] procedure are in the results section. PREPARE RBC Routine 11/15/2018 12:43 PM Results for this [facility] procedure are in the results section. TYPE AND SCREEN Routine 11/15/2018 12:43 PM Preop testing Results for this [facility] procedure are in the results section. ESTIMATED GFR Routine 10/24/2018 1:36 PM Results for this CRIME SPECIALIST procedure are in the results section. COMPREHENSIVE METABOLIC Routine 10/24/2018 1:36 PM Preop testing Results for this PANEL CRIME SPECIALIST procedure are in the results section. CBC HEMOGRAM Routine 10/24/2018 1:36 PM Preop testing Results for this CRIME SPECIALIST procedure are in the results section. after 04/05/2018 Results POC glucose (01/23/2019 11:45 AM CDT)Only the most recent of44 resultswithin the time period is included. POC glucose 107 (H) 65 - 99 mg/dL [facility] Comment: H[facility]PITAL [facility] Notified RN Meter ID: [id number] Veterans Contact Representative: Eddie Dowd I Specimen Performing Organization Address City/State/Zipcode Phone Number [facility] DEPARTMENT OF PATHOLOGY AND [address] [place] [address] GENOMIC MEDICINE [facility] [address] [place] [address] CBC hemogram (01/23/2019 6:20 AM CDT)Only the most recent of2 resultswithin the time period is included. WBC 6.23 4.50 - 11.00 k/uL [facility] RBC 2.77 (L) 4.40 - 6.00 m/uL [facility] HGB 8.9 (L) 14.0 - 18.0 g/dL [facility] HCT 28.1 (L) 41.0 - 51.0 % [facility] MCV 101.4 (H) 82.0 - 100.0 fL [facility] MCH 32.1 27.0 - 34.0 pg [facility] MCHC 31.7 31.0 - 37.0 g/dL [facility] RDW - SD 66.9 (H) 37.0 - 55.0 fL [facility] MPV 10.7 8.8 - 13.2 [facility] Platelet count 156 150 - 400 k/uL [facility] Nucleated RBC 0.00 /100 WBC [facility] Specimen Blood Performing Organization Address [facility] Phone Number [facility] DEPARTMENT OF PATHOLOGY AND [address] [place] [address] [place] [address] Estimated GFR (01/22/2019 5:00 AM CDT)Only the most recent of20 resultswithin the time period is included. Estimated GFR 73 mL/min/1.73 [facility] Comment: HOSPITAL CatergoryUnitsInterpretation G1 >=90 Normal or high G2 60-89Mildly decreased D0t81-66Rqpewn to moderately decreased J0n01-32Upxvdrqvwf to severely decreased G4 15-29Severely decreased G5 <15Kidney failure The eGFR was calculated using the Chronic Kidney Disease Epidemiology Collaboration (CKD-EPI) equation. Interpretation is based on recommendations of the National Kidney Foundation-Kidney Disease Outcomes Quality Initiative (NKF-KDOQI) published in 2014. Specimen Plasma specimen Performing Organization Address [facility] Phone Number [facility] DEPARTMENT OF PATHOLOGY AND [address] [place] [address] Phosphorus level (01/22/2019 5:00 AM CDT)Only the most recent of9 resultswithin the time period is included. Phosphorus 2.3 (L) 2.4 - 4.5 mg/dL [facility] Specimen Plasma specimen Performing Organization Address [facility] Phone Number [facility] DEPARTMENT OF PATHOLOGY AND [address] [place] [address] B natriuretic peptide (01/22/2019 5:00 AM CDT)Only the most recent of5 resultswithin the time period is included. BNP 2,025 (H) 0 - 100 pg/mL [facility] Specimen Blood Performing Organization Address [facility] Phone Number [facility] DEPARTMENT OF PATHOLOGY AND [address] [place] [address] HOSPITAL [address] [place] [address] Magnesium level (01/22/2019 5:00 AM CDT)Only the most recent of13 resultswithin the time period is included. Magnesium 1.8 1.6 - 2.4 mg/dL [facility] Specimen Plasma specimen Performing Organization Address [facility]/Zipcode Phone Number [facility] DEPARTMENT OF PATHOLOGY AND [address] [place] [address] [facility] [address] [place] [address] Comprehensive metabolic panel (01/22/2019 5:00 AM CDT)Only the most recent of6 resultswithin the time period is included. Sodium 142 135 - 148 [facility] mEq/L [facility] Potassium 4.3 3.5 - 5.0 [facility] mEq/L [facility] Chloride 115 (H) 98 - 112 mEq/L [facility] CO2 18 (L) 24 - 31 mEq/L [facility] Anion gap 9@ANIO 7 - 15 mEq/L [facility] BUN 16 8 - 23 mg/dL [facility] Creatinine 0.98 0.70 - 1.20 [facility] mg/dL [facility] Glucose 78 65 - 99 mg/dL [facility] Calcium 8.1 (L) 8.8 - 10.2 [facility] mg/dL [facility] Protein 4.9 (L) 6.3 - 8.3 g/dL [facility] Comment: HOSPITAL 4.6-7.0 g/dL 1 week 4.4-7.6 g/dL 7 months-1year5.1-7.3 g/dL 1-2 years5.6-7.5 g/dL >3 years6.0-8.0 g/dL 18-150 6.3-8.3 g/dL Albumin 2.1 (L) 3.5 - 5.0 g/dL [facility] A/G ratio 0.8 0.7 - 3.8 [facility] Alkaline phosphatase 93 40 - 129 U/L [facility] AST 16 10 - 50 U/L [facility] ALT 10 5 - 50 U/L [facility] Total bilirubin 0.7 0.0 - 1.2 [facility] mg/dL HOSPITAL Specimen Plasma specimen Performing Organization Address [facility]/Zipcode Phone Number [facility] DEPARTMENT OF PATHOLOGY AND [address] [place] [address] GENOMIC MEDICINE [facility] [address] [place] [address] XR Chest 1 Vw Portable (01/21/2019 2:42 PM CDT)Only the most recent of2 resultswithin the time period is included. Specimen Narrative Performed At EXAMINATION:XR CHEST 1 VW PORTABLE RADIANT CLINICAL HISTORY:chf COMPARISON:01/10/2019 IMPRESSION: Right PICC line courses to the cavoatrial junction. Mild right hemidiaphragm elevation. Patchy left basilar opacity may reflect pneumonia, mildly improved. No new consolidation. No significant pleural effusion. Stable cardiomediastinal silhouette. [facility]-[id number] Procedure Note Interface, Radiology Results Incoming - 01/21/2019 2:56 PM CDT EXAMINATION: XR CHEST 1 VW PORTABLE CLINICAL HISTORY: chf COMPARISON: 01/10/2019 IMPRESSION: Right PICC line courses to the cavoatrial junction. Mild right hemidiaphragm elevation. Patchy left basilar opacity may reflect pneumonia, mildly improved. No new consolidation. No significant pleural effusion. Stable cardiomediastinal silhouette. [facility]-[id number] Performing Organization Address [facility]/Zipcode Phone Number [facility] [address] [place] [address] duplex venous upper extremity (01/21/2019 2:27 PM CDT) Specimen Narrative Performed At [facility] Vascular Ultrasound Laboratory Upper Extremity Venous Report [address] [place] [address] Pat.Name:GAUTAM RAMIREZ Ayush Pat.ID:[id number] .Date: 01/21/2019 Refer.MD:LUIS CHEN MD Exam Time: 1:48:00 PMStudy Type:UE Venous Height:73inWeight: 155lb BSA: 1.93 m2 DOBAge:1940,78Y Sex: MALESonogrphr: Janny Cole RVT Pat. Stat.:Inpatient Room:[address] TapeVol: FAUSTINO, CPT - 4: 57505 Echo Event ID:[id number] Order ID:[id number] Reason for Study:Evaluation for DVT. Procedures:Colorflow, Grayscale/2D, [...] Ultrasound Laboratory Upper Extremity Venous Report [address] [place] [address] Pat.Name: GAUTAM RAMIREZ Pat.ID: [id number] .Date: 01/21/2019 Refer.MD: LUIS CHEN MD Exam Time: 1:48:00 PM Study Type:UE Venous Height: 73in Weight: 155lb BSA: 1.93 m2 Age: 5 1940,78Y Sex: MALE Sonogrphr: Janny Cole RVT Pat. Stat.:Inpatient Room: [address] Tape Vol: JJ, CPT - 4: 54061 Echo Event ID:[id number] Order ID: [id number] Reason for Study:Evaluation for DVT. Procedures:Colorflow, Grayscale/2D, [...] Sergio Solorzano MD, RPVI Performing Organization Address [facility]/State/Zipcode Phone Number [facility] [address] duplex venous lower extremity (01/21/2019 2:03 PM CDT) Specimen Narrative Performed At [facility] Vascular Ultrasound Laboratory Lower Extremity Venous Report [address] [place] [address] Pat.Name:GAUTAM RAMIREZ Pat.ID:[id number] .Date: 01/21/2019 Refer.MD:LUIS CHEN MD Exam Time: 2:05:00 PMStudy Type:LE Venous Height:73inWeight: 155lb BSA: 1.93 m2 DOBAge:1940,78Y Sex: MALESonogrphr: Janny Cole RVT Pat. Stat.:Inpatient Room:[address] TapeVol: FAUSTINO, CPT - 4: 06603 Echo Event ID:[id number] Order ID:[id number] Reason for Study:Evaluation for DVT, prolonged supine [...] Vascular Ultrasound Laboratory Lower Extremity Venous Report [address] [address] [facility].Name: GAUTAM RAMIREZ Pat.ID: [id number] .Date: 01/21/2019 Refer.MD: LUIS CHEN MD Exam Time: 2:05:00 PM Study Type:LE Venous Height: 73in Weight: 155lb BSA: 1.93 m2 Age: 5 1940,78Y Sex: MALE Sonogrphr: Janny Cole RVT Pat. Stat.:Inpatient Room: [address] Tape Vol: JJ, CPT - 4: 73332 Echo Event ID:[id number] Order ID: [id number] Reason for Study:Evaluation for DVT, prolonged supine [...] 01/22/2019 11:19 AM Sergio Solorzano MD, RPVI Performing Organization Address City/State/Zipcode Phone Number [facility] [address] [place] [address] Cv labor relations worker procedure (01/20/2019 9:02 AM CDT) Specimen Narrative Performed At Inpatient procedure ;preop dx ischemic cardiomyopathy , decompensated chf SYN[facility] procedure : lhc,lva ,selective cor findings: patent proximal; lad stent,mild isr; cfx - calcified plaque hnh05-55% proximal stenosis, 100% stenosis mid rca proximal to rca stent, collaterals to distal julia /pad of rca via lad septals and cfx[progression of rca occlusive cadVs 01/2081 outside heart cath diagran m and lvef worsening vs out echo/doppler form [facility] 11/2018 report] lvef est 25-29%, lvedp 8; medical rx , afterloadOptimization; cv risk optimization emphasis Performing Organization Address City/[facility]/Zipcode Phone Number [facility] [address] [place] [address] Partial thromboplastin time, activated (01/20/2019 4:56 AM CDT)Only the most recent of3 resultswithin the time period is included. Pathologist [facility] PTT 38.8 (H) 23.0 - 36.0 [facility] Comment: [facility] PTT therapeutic range for unfractionated heparin is 61.0-112.0 seconds which corresponds to Anti-Xa 0.3-0.7 U/ml. Specimen Blood Performing Organization Address [facility] Phone Number [facility] DEPARTMENT OF PATHOLOGY AND [address] [place] [address] [address] Prothrombin time with INR (01/20/2019 4:56 AM CDT)Only the most recent of4 resultswithin the time period is included. Pathologist [facility] Prothrombin time 18.2 (H) 11.5 - 14.5 [facility] INR 1.6 [place] Comment: DRUZE [facility] International Normalized Ratio (INR) is a therapeutic HOSPITAL monitoring tool for patients who are stable on oral anticoagulant therapy. An INR of 2.0-3.0 is suggested for deep vein thrombosis/pulmonary embolism. Specimen Blood Performing Organization Address [facility]/Zipcode Phone Number [facility] DEPARTMENT OF PATHOLOGY AND [address] [place] [address] [address] CBC with platelet and differential (01/20/2019 4:56 AM CDT)Only the most recent of13 resultswithin the time period is included. WBC 7.13 4.50 - 11.00 [facility] k/uL HOSPITAL RBC 2.75 (L) 4.40 - 6.00 [facility] m/uL HOSPITAL HGB 8.8 (L) 14.0 - 18.0 [facility] g/dL HOSPITAL HCT 28.7 (L) 41.0 - 51.0 % [facility] MCV 104.4 (H) 82.0 - 100.0 [facility] MCH 32.0 27.0 - 34.0 pg [facility] MCHC 30.7 (L) 31.0 - 37.0 [facility] g/dL [facility] RDW - SD 64.8 (H) 37.0 - 55.0 fL [facility] MPV 11.1 8.8 - 13.2 fL [facility] Platelet count 124 (L) 150 - 400 k/uL [facility] Nucleated RBC 0.00 /100 WBC [facility] Neutrophils 70.3 (H) 39.0 - 69.0 % [facility] Lymphocytes 18.7 (L) 25.0 - 45.0 % [facility] Monocytes 6.9 0.0 - 10.0 % [facility] Eosinophils 2.8 0.0 - 5.0 % [facility] Basophils 0.3 0.0 - 1.0 % [facility] Immature granulocytes 1.0Comment: 0.0 - 1.0 % [facility] "Immature [facility] granulocytes" (promyelocytes , myelocytes, metamyelocytes ) Specimen Blood Performing Organization Address City/State/Zipcode Phone Number [facility] DEPARTMENT OF PATHOLOGY AND [address] [place] [address] GENOMIC MEDICINE [address] [address] Basic metabolic panel (01/17/2019 4:00 AM CRIME SPECIALIST)Only the most recent of14 resultswithin the time period is included. [facility] Sodium 141 135 - 148 mEq/L [facility] Potassium 4.1 3.5 - 5.0 mEq/L [facility] Chloride 116 (H) 98 - 112 mEq/L [facility] CO2 19 (L) 24 - 31 mEq/L [facility] Anion gap 6@ANIO (L) 7 - 15 mEq/L [facility] BUN 18 8 - 23 mg/dL [facility] Creatinine 0.93 0.70 - 1.20 mg/dL [facility] Glucose 91 65 - 99 mg/dL [facility] Calcium 7.5 (L) 8.8 - 10.2 mg/dL [facility] Specimen Plasma specimen Performing Organization Address City/State/Zipcode Phone Number [facility] DEPARTMENT OF PATHOLOGY AND [address] [place] [address] GENOMIC MEDICINE [facility] [address] [place], [place] [id number] Cv echo 2d limited or follow up study (01/16/2019 12:25 PM CRIME SPECIALIST) Specimen Narrative Performed At [facility] Echocardiography Report [address] [facility] [place] [address] [address] Pat.Name:GAUTAM RAMIREZ Pat.ID:[id number] .Date: 01/16/2019Refer.MD:LUIS CHEN MD Exam Time: 11:57:00 AM Study Type:Routine Echo Height:72.99in Weight:155lb BSA: 1.93 m2 DOBAge:1940,78Y Sex: MALEBP:99/56 HR:83 bpmSonogrphr: Sweta Turk RDCS Pat. Stat.:Inpatient Room:[place] [address] Study Status:Final Echo Event ID:[id number] Order ID:[id number] Reason for Study:Cardiomyopathies - Initial eval of known or suspected cardiomyopathy (e.g. restrictive, infiltrative, dilated, hypertophic, or genetic cardiomyopathy) Procedures:Portable, 2D Echo,Colorflow Doppler Limited Race:C SUMMARY: LV size is moderately to severely enlarged. Estimated EF is 20-24%. There is severe eccentric LV hypertrophy. Estimated PA systolic pressure is 33-38 mmHg, assuming a mean RAP of 5-10 mmHg. FINDINGS: LV: LV size is fketqwro-ve-ohfucuvu enlarged. There is severe eccentricLV hypertrophy. LV [...] of 5-10 mmHg. MEASUREMENTS: 2D Parasternal [place] LVOT 1.9 cmLA Ds5.1 cm LVIDd6.6 cmIndex3.4 cm/m Ao An2 cm LVIDs5.4 cmAo Rtd 3.7 cm Index1.9 cm/m LV%fs 18.2 % LV Egzi653.9 g(122-174) IVSd 1.1 cmLVM Bhyxi188.3 g/m2 LVPWd1.2 cmRWT0.4 LA Sng Plane LA [...] 4332.8 cm/s2 AV Mean G 16.8 mmHgAV TuDd786.2 cm/s2 AV AC106 msec (83-118) AV Area1.1 [...] Radiology Results In - 01/16/2019 4:21 PM [facility] Echocardiography Report [address] [place] [address] Pat.Name: GAUTAM RAMIREZ Pat.ID: [id number] .Date: 01/16/2019 Refer.MD: LUIS CHEN MD Exam Time: 11:57:00 AM Study Type:Routine Echo Height: 72.99in Weight: 155lb BSA: 1.93 m2 Age: 5 1940,78Y Sex: MALE BP: 99/56 HR: 83 bpm Sonogrphr: Sweta Turk RDCS Pat. Stat.:Inpatient Room: M4NW - 437 Study Status:Final Echo Event ID:[id number] Order ID: [id number] Reason for Study:Cardiomyopathies - Initial eval of known or suspected cardiomyopathy (e.g. restrictive, infiltrative, dilated, hypertophic, or genetic cardiomyopathy) Procedures:Portable, 2D Echo,Colorflow Doppler Limited Race: C SUMMARY: LV size is moderately to severely enlarged. Estimated EF is 20-24%. There is severe eccentric LV hypertrophy. Estimated PA systolic pressure is 33-38 mmHg, assuming a mean RAP of 5-10 mmHg. FINDINGS: LV: LV size is nrtkpmdf-ls-dyvysygr enlarged. There is severe eccentric LV hypertrophy. [...] of 5-10 mmHg. MEASUREMENTS: 2D Parasternal [place] LVOT 1.9 cm LA Ds 5.1 cm [...] M.D. Performing Organization Address City/State/Zipcode Phone Number [facility] [address] [place] [address] Vancomycin level, trough (01/16/2019 4:00 AM CRIME SPECIALIST)Only the most recent of2 resultswithin the time period is included. Vancomycin, 18.2 10.0 - 20.0 [facility] trough Comment: ug/mL HOSPITAL Therapeutic Ranges: Peak 30.0 - 40.0 ug/mL Grehkz35.0 - 20.0 ug/mL Specimen Serum Performing Organization Address [facility] Hospital[facility] Phone Number [facility] DEPARTMENT OF PATHOLOGY AND [address] [place] [address] [address] [address] ECG 12 lead (01/15/2019 8:20 AM CRIME SPECIALIST)Only the most recent of4 resultswithin the time period is included. Ventricular rate 99 [facility] Atrial rate 99 [facility] QRSD interval 124 [facility] QT interval 352 [facility] QTC interval 451 [facility] P axis 1 56 [facility] QRS axis 1 -31 [facility] T wave axis 124 [facility] EKG impression Normal sinus rhythm-Left axis deviation-Septal infarct (cited on or before 15-NOV-2018)-Inferior infarct (cited on or before 10-JAN-2019)-ST & T wave abnormality, consider lateral ischemia-Abnormal ECG-In automated comparison with ECG of 11-JAN-2019 [facility] MUSE 11:15,-fusion complexes are no longer present-QRS axis shifted left- Nonspecific T wave abnormality, improved in Inferior leads-T wave inversion more evident in Lateral leads- Specimen Narrative Performed At Performing Organization Address City/[facility] Phone Number [facility] [address] [place] [address] Aerobic culture (01/14/2019 11:05 AM CRIME SPECIALIST)Only the most recent of2 resultswithin the time period is included. Aerobic culture No growth after 2 days. [facility] isolate Comment: HOSPITAL Specimen Information Specimen Source: Drainage Specimen Site: Back Specimen Drainage - Back Performing Organization Address [facility] Phone Number [facility] DEPARTMENT OF PATHOLOGY AND [address] [place] [address] Gram stain (01/14/2019 11:05 AM CRIME SPECIALIST)Only the most recent of2 resultswithin the time period is included. Gram stain isolate Moderate WBC's [facility] No organisms seen HOSPITAL Comment: Specimen Information Specimen Source: Drainage Specimen Site: Back Specimen Drainage - Back Performing Organization Address [facility] Phone Number [facility] DEPARTMENT OF PATHOLOGY AND [address] [place] [address] Anaerobic culture (01/14/2019 10:05 AM CRIME SPECIALIST)Only the most recent of2 resultswithin the time period is included. Anaerobic culture No anaerobic organisms isolated. [facility] isolate Comment: HOSPITAL Specimen Information Specimen Source: Drainage Specimen Site: Back Specimen Drainage - Back Performing Organization Address [facility] Phone Number [facility] DEPARTMENT OF PATHOLOGY AND [address] [place] [address] HIV Ag/Ab combination (01/14/2019 4:00 AM CRIME SPECIALIST) HIV Ag/Ab combination Non-reactive Non-reactive [facility] Specimen Blood Performing Organization Address City/[facility] Phone Number [facility] DEPARTMENT OF PATHOLOGY AND [address] [place] [address] Us carotid duplex (01/13/2019 9:45 AM CRIME SPECIALIST) Specimen Narrative Performed At [facility] Vascular Ultrasound Laboratory Carotid Artery Duplex Report [address] [place] [address] For quality control industrial engineer purposes, the categorization of the degree of the stenosis of this exam is based on criteria described in the IAC carotid stenosis grading white paper( www.intersocietal.org/Vascular) and Keli Ford., Ross Garay, et al. Carotid artery stenosis: grady-scale and Doppler US diagnosis--Society of Radiologists in Ultrasound Consensus Conference. Radiology. 2003 Nov; 229(2):340-6. Pat.Name:GAUTAM RAMIREZ Pat.ID:[id number] .Date: 01/13/2019Refer.MD:LUIS CHEN MD Exam Time: 9:25:00 AMStudy Type:Carotid DOBAge:1940,78Y Sex: MALE Sonogrphr: Piero Starr, RVSPat. Stat.:Inpatient Room:[facility] TapeVol: , [facility] - 4: [address] Echo Event ID:[id number] Order ID:[id number] Reason for Study:Carotid artery disease; CAD, colon [...] Radiology Results In - 01/13/2019 6:06 PM [facility] Vascular Ultrasound Laboratory Carotid Artery Duplex Report [address] [address] For quality control industrial engineer purposes, the categorization of the degree of the stenosis of this exam is based on criteria described in the IAC carotid stenosis grading white paper( www.intersocietal.org/Vascular) and Keli Ford., Ross Garay, et al. Carotid artery stenosis: grady-scale and Doppler US diagnosis--Society of Radiologists in Ultrasound Consensus Conference. Radiology. 2003 Nov; 229(2):340-6. Pat.Name: GAUTAM RAMIREZ Pat.ID: [id number] .Date: 01/13/2019 Refer.MD: LUIS CHEN MD Exam Time: 9:25:00 AM Study Type:Carotid Age: 5 1940,78Y Sex: MALE Sonogrphr: Piero Starr RVS Pat. Stat.:Inpatient Room: [address] Vol: , CPT - 4: [address] Echo Event ID:[id number] Order ID: [id number] Reason for Study:Carotid artery disease; CAD, colon [...] Estrada MD, FACS, RPVI Performing Organization Address [facility] Hospitalcovt Phone Number [facility] [address] [place] [address] Total iron binding capacity (01/13/2019 3:30 AM CRIME SPECIALIST) [facility] Iron level 39 (L) 59 - 158 ug/dL [facility] Iron binding capacity 81 (L) 200 - 400 ug/dL [facility] % Saturation 48.1 (H) 20.0 - 40.0 % [facility] Specimen Plasma specimen Performing Organization Address [facility] Center/[facility] Phone Number [facility] DEPARTMENT OF PATHOLOGY AND [address] [place] [address] [address] Reticulocyte count (01/13/2019 3:30 AM CRIME SPECIALIST) [facility] Retic %, auto 0.9 0.5 - 2.1 % [facility] Retic absolute, auto 0.0245 0.0220 - 0.1260 [facility] Specimen Blood Performing Organization Address [facility] Phone Number [facility] DEPARTMENT OF PATHOLOGY AND [address] [place] [address] [address] Folate level (01/13/2019 3:30 AM CRIME SPECIALIST) [facility] Folate 4.2 (L) 4.8 - 24.2 ng/mL [facility] Specimen Serum Performing Organization Address [facility] Phone Number [facility] DEPARTMENT OF PATHOLOGY AND [address] [place] [address] [address] Vitamin B12 level (01/13/2019 3:30 AM CRIME SPECIALIST) Vitamin B12 [phone] [facility] Comment: pg/mL HOSPITAL Significant overlap exists between normal and deficiency states. However, most patients with deficiencies will have Serum B12 <200 pg/mL. Specimen Serum Performing Organization Address City/[facility]/Zipcode Phone Number [facility] DEPARTMENT OF PATHOLOGY AND [address] [place] [address] Cortisol level, AM (01/12/2019 5:50 AM CRIME SPECIALIST) Cortisol, AM 7 6 - 18 ug/dL [facility] Specimen Plasma specimen Performing Organization Address City/[facility]/Zipcode Phone Number [facility] DEPARTMENT OF PATHOLOGY AND [address] [place] [address] T3, free (01/12/2019 5:50 AM CRIME SPECIALIST) Pathologist [facility] T3, free 1.1 (L) 2.4 - 4.2 pg/mL [facility] Comment: REFERENCE INTERVAL: Triiodothyronine, Free (Free T3) Access complete set of age- and/or gender-specific reference intervals for this test in the [facility] Test Directory ([employer]). Performed by [facility], [address] [place] [phone] www.[email or web address], Al Dunbar MD - Lab. Director Specimen Serum Performing Organization Address [facility] Phone Number Content Syndicate: [facility] [address] [place] [phone] [facility] [address] [place] [address] Thyroid stimulating hormone (01/12/2019 5:50 AM CRIME SPECIALIST)Only the most recent of2 resultswithin the time period is included. [facility] TSH 4.12 0.27 - 4.20 uIU/mL [facility] Specimen Plasma specimen Performing Organization Address City/[facility]/Zipcode Phone Number [facility] DEPARTMENT OF PATHOLOGY AND [address] [place] [address] T4, free (01/12/2019 5:50 AM CRIME SPECIALIST) T4, free 0.8 (L) 0.9 - 1.7 ng/dL [facility] Specimen Plasma specimen Performing Organization Address City/[facility] Phone Number [facility] DEPARTMENT OF PATHOLOGY AND [address] [place] [address] Thyroperoxidase antibody (01/11/2019 1:10 PM CRIME SPECIALIST) Thyroperoxidase Ab <0.3 0.0 - 9.0 IU/mL [facility] Specimen Serum Performing Organization Address City/[facility] Phone Number [facility] DEPARTMENT OF PATHOLOGY AND [address] [place] [address] Ionized calcium (01/11/2019 3:30 AM CRIME SPECIALIST)Only the most recent of2 resultswithin the time period is included. pH 7.53 [facility] Ionized calcium 1.11 1.11 - 1.32 mmol/L [facility] Specimen Plasma specimen Performing Organization Address [facility] Phone Number [facility] DEPARTMENT OF PATHOLOGY AND [address] [place] [address] Hepatic function panel (01/11/2019 3:30 AM CRIME SPECIALIST)Only the most recent of2 resultswithin the time period is included. Albumin 1.5 (L) 3.5 - 5.0 g/dL [facility] Total bilirubin 0.8 0.0 - 1.2 [facility] mg/dL [facility] Bilirubin direct 0.4 (H) 0.0 - 0.3 [facility] mg/dL [facility] Alkaline phosphatase 163 (H) 40 - 129 U/L [facility] Protein 5.1 (L) 6.3 - 8.3 g/dL [facility] Comment: HOSPITAL 4.6-7.0 g/dL 1 week 4.4-7.6 g/dL 7 months-1year5.1-7.3 g/dL 1-2 years5.6-7.5 g/dL >3 years6.0-8.0 g/dL 18-150 6.3-8.3 g/dL ALT 35 5 - 50 U/L [facility] AST 25 10 - 50 U/L [facility] Specimen Plasma specimen Performing Organization Address City/[facility] Phone Number [facility] DEPARTMENT OF PATHOLOGY AND [address] [place] [address] Hemoglobin & hematocrit (01/10/2019 8:10 PM CRIME SPECIALIST)Only the most recent of4 resultswithin the time period is included. [facility] HGB 9.7 (L) 14.0 - 18.0 g/dL [facility] HCT 30.9 (L) 41.0 - 51.0 % [facility] Specimen Blood Performing Organization Address [facility] Phone Number [facility] DEPARTMENT OF PATHOLOGY AND [address] [place] [address] Troponin (01/10/2019 8:10 PM CRIME SPECIALIST)Only the most recent of3 resultswithin the time period is included. [facility] Troponin <0.30 0.00 - 0.30 [facility] Comment: ng/mL HOSPITAL 0.30 - 1.49 ng/mlMay indicate increased risk of acute coronary syndrome. >=1.5 ng/mlConsistent with acute myocardial infarction. The diagnostic value of a single normal or non-diagnostic result is questionable.Serial samples at 2-6 hour intervals are required to rule out acute myocardial injury. Specimen Plasma specimen Performing Organization Address [facility] Phone Number [facility] DEPARTMENT OF PATHOLOGY AND [address] [place] [address] Hepatitis acute panel (01/10/2019 5:16 PM CRIME SPECIALIST) [facility] Hepatitis A IgM Non-reactive Non-reactive [facility] Hepatitis B core Non-reactive Non-reactive [facility] Hepatitis B surface Non-reactive Non-reactive [facility] Hepatitis C Ab Non-reactive Non-reactive [facility] Specimen Serum Performing Organization Address [facility] Phone Number [facility] DEPARTMENT OF PATHOLOGY AND [address] [place] [address] [place] [address] T4 (01/10/2019 5:16 PM CRIME SPECIALIST) T4 3.1 (L) 4.5 - 11.7 ug/dL [facility] Specimen Plasma specimen Performing Organization Address City/[facility] Phone Number [facility] DEPARTMENT OF PATHOLOGY AND [address] [place] [phone] [place] [address] Lactic acid level, SEPSIS - Now and repeat 2x every 3 hours (01/10/2019 12:15 PM CRIME SPECIALIST)Only the most recent of3 resultswithin the time period is included. Lactic acid 1.3 0.5 - 2.2 mmol/L [facility] Specimen Blood Performing Organization Address [facility] Phone Number [facility] DEPARTMENT OF PATHOLOGY AND [address] [place] [phone] [place] [phone] Sodium level, urine, random (01/10/2019 12:12 PM CRIME SPECIALIST) Sodium, urine, random 81 mEq/L [facility] Specimen Urine Performing Organization Address [facility] Phone Number [facility] DEPARTMENT OF PATHOLOGY AND [address] [place] [address] Creatinine level, urine, random (01/10/2019 12:12 PM CRIME SPECIALIST) Creatinine, urine, 98 mg/dL [facility] Specimen Urine Performing Organization Address [facility] Phone Number [facility] DEPARTMENT OF PATHOLOGY AND [address] [place] [address] Head Wo Contrast (01/10/2019 11:23 AM CRIME SPECIALIST) Specimen Narrative Performed At EXAMINATION:CT HEAD WO CONTRAST [...] cells, correlate with physical exam for otomastoiditis. [id number] Procedure Note Hm Interface, Radiology Results Incoming - 01/10/2019 11:35 AM CRIME SPECIALIST EXAMINATION: CT HEAD WO CONTRAST CLINICAL HISTORY: [...] cells, correlate with physical exam for otomastoiditis. [id number] Performing Organization Address City/State/Zipcode Phone Number [facility] [address] [place] [address] CT Abdomen Pelvis Wo Contrast (01/10/2019 11:23 AM CRIME SPECIALIST) Specimen Narrative Performed At EXAMINATION:CT ABDOMEN PELVIS WO [...] to suggest abscess. Bilateral lower lobe pneumonia. [id number] Procedure Note Interface, Radiology Results Incoming - 01/10/2019 12:05 PM CRIME SPECIALIST EXAMINATION: CT ABDOMEN PELVIS WO CONTRAST CLINICAL [...] to suggest abscess. Bilateral lower lobe pneumonia. [facility]-[id number] Performing Organization Address City/[facility] Phone Number [facility] [address] [place] [address] XR Picc Chest Portable (01/10/2019 11:00 AM CRIME SPECIALIST) Specimen Narrative Performed At EXAMINATION:XR PICC CHEST PORTABLE [facility] CLINICAL HISTORY:N91.2 Amenorrheaunspecified, Multiple IV meds COMPARISON:Chest x-ray 01/10/2019 IMPRESSION: Single frontal view reveals interval placement of a right-sided PICC line with tip overlying the SVC. The remainder of the examination is unchanged. [facility]-[id number] Procedure Note Interface, Radiology Results Incoming - 01/10/2019 11:04 AM CRIME SPECIALIST EXAMINATION: XR PICC CHEST PORTABLE CLINICAL HISTORY: N91.2 Amenorrhea unspecified, Multiple IV meds COMPARISON: Chest x-ray 01/10/2019 IMPRESSION: Single frontal view reveals interval placement of a right-sided PICC line with tip overlying the SVC. The remainder of the examination is unchanged. [facility]-[id number] Performing Organization Address City/State/Zipcode Phone Number [facility] [address] [place] [address] PICC insertion (01/10/2019 9:58 AM CRIME SPECIALIST) Narrative Performed At Jenifer Woodson 01/10/2019 10:04 AM PICC insertion Date/Time: 01/10/2019 9:58 AM Performed by: Don Riojas RN Authorized by: Nayely Flood MD Consent: Consent obtained:Verbal Consent given by:Patient Risks discussed: arterial puncture, incorrect placement, nerve damage, bleeding, infection, superficial thrombus and deep vein thrombus Alternatives discussed:No treatment and delayed treatment [place] protocol: Procedure explained and questions answered to [...] LDA): Patient position:Flat Vessel Size (mm):4 Indication:Known group home IV therapy Location:Right basilic Device Type:Non-valved Catheter size:5 Fr PICC Characteristics: Catheter Brand:Angiodynamic PowerPICC External Catheter Length (cm):0 Internal Catheter Length (cm):41 Total Catheter Length (cm):41 Catheter Lot Number:[id number] Catheter Expiration Date:09/11/2020 Procedure Details: Landmarks identified: [...] immediate complications Urine culture (01/10/2019 7:31 AM CRIME SPECIALIST) Urine culture SEE COMMENTComment: [facility] Bacteriuria screen HOSPITAL negative. Specimen Performing Organization Address City/[facility] Phone Number [facility] DEPARTMENT OF PATHOLOGY AND [address] [place] [address] Urinalysis screen and microscopy, with reflex to culture (01/10/2019 7:24 AM CRIME SPECIALIST) Specimen site Catheterized [facility] Color, UA Yellow [facility] Appearance, UA Clear [facility] Specific gravity, UA 1.054 (H) 1.001 - 1.035 [facility] pH, UA 5.0 5.0 - 8.5 [facility] Protein, UA Negative Negative [facility] Glucose, UA Negative Negative [facility] Ketones, UA Negative Negative [facility] Bilirubin, UA Negative Negative [facility] Blood, UA Negative Negative [facility] Nitrite, UA Negative Negative [facility] Urobilinogen, UA <2.0 <2.0 [facility] Leukocyte esterase, Negative Negative [facility] Epithelial cells, UA 1 /HPF [facility] WBC, UA 2 (H) 0 - 1 /HPF [facility] RBC, UA 5 0 - 5 /HPF [facility] Bacteria, UA Few None seen [facility] Yeast, UA None seen [facility] Yeast with None seen [facility] pseudohyphae, HOSPITAL Specimen Urine Performing Organization Address City/[facility] Phone Number [facility] DEPARTMENT OF PATHOLOGY AND [address] [place] [address] XR Abdomen 1 Vw Portable (01/10/2019 6:53 AM CRIME SPECIALIST) Specimen Narrative Performed At EXAMINATION:XR ABDOMEN 1 VW PORTABLE [facility] CLINICAL HISTORY:ICU ptrecent abdominal surgery COMPARISON:None. IMPRESSION: Water-soluble contrast material is noted in the stomach and proximal small bowel which is not dilated.There is an ostomy in the right lower quadrant.There is no significant colonic material identified.There is contrast in the urinary bladder. [facility]-[id number] Procedure Note Interface, Radiology Results Incoming - 01/10/2019 7:46 AM CRIME SPECIALIST EXAMINATION: XR ABDOMEN 1 VW PORTABLE CLINICAL HISTORY: ICU pt recent abdominal surgery COMPARISON: None. IMPRESSION: Water-soluble contrast material is noted in the stomach and proximal small bowel which is not dilated. There is an ostomy in the right lower quadrant. There is no significant colonic material identified. There is contrast in the urinary bladder. [facility]-[id number] Performing Organization Address City/State/Zipcode Phone Number [facility] [address] [place] [address] Echocardiogram complete w contrast and 3D if needed (01/10/2019 6:28 AM CRIME SPECIALIST) Specimen Narrative Performed At [facility] Echocardiography Report [id number] [facility] [address] [address] Pat.Name:GAUTAM RAMIREZ Ayush Pat.ID:[id number] .Date: 01/10/2019Refer.MD:NAYELY FLOOD MD Exam Time: 5:52:00 AMStudy Type:Routine Echo Height:72.99in Weight:154.66lb BSA: 1.93 m2 DOBAge:1940,78Y Sex: MALEBP:120/58 HR:83 bpmSonogrphr: IRVING Mendoza Pat. Stat.:Inpatient Room:[place] [address] Study Status:Final Echo Event ID:[id number] Order ID:[id number] Reason for Study:AFIB, elevated BNP Procedures:2D Echo, Colorflow Doppler, Strain, Portable, Stat Race: SUMMARY: LV EF is severely depressed. Inferoposterior [place] Tethered posterior mitral leaflet with Moderate mitral regurgitation. FINDINGS: LV: LV size is ygqbwveo-nj-kakycthk enlarged. LV EF is severely depressed.Estimated EF [...] of 5-10 mmHg. MEASUREMENTS: 2D Parasternal [place] Ds4.5 cmLVPWd1.1 cm LVOT 2.3 cmAo An2.3 cm LVIDd6.5 cmIndex3.3 cm/m Ao Rtd 3.6 cm Index1.9 cm/m LVIDs5.3 cm LV Dvzy146 g(122-174) LV%fs 18.5 % LVM Rqsno840.8 g/m2 IVSd 1.1 cmRWT0.3 LA Sng Plane [...] TVI47.6 cm AV Mean G 13.8 mmHgAVpkAcRt 59919.1 cm/s2 AV AC100 msec (83-118) AV Area-Cont. Eq. LVOT Area3.8 cm2 AV TVI47.6 cm LVOT TVI15.7 cmAV Area1.3 cm2(3-5) AV SV 59.8 ml For Flow/Valve Assess JuYlt660.5 cm/sTVI 48.7 cm MnPG13.5 mmHg WALL MOTION: [...] Radiology Results In - 01/10/2019 10:39 AM CRIME SPECIALIST Echocardiography Report [address] [place] [address] Pat.Name: GAUTAM RAMIREZ Pat.ID: [id number] .Date: 01/10/2019 Refer.MD: NAYELY FLOOD MD Exam Time: 5:52:00 AM Study Type:Routine Echo Height: 72.99in Weight: 154.66lb BSA: 1.93 m2 Age: 4 1940,78Y Sex: MALE BP: 120/58 HR: 83 bpm Sonogrphr: IRVING Mendoza Pat. Stat.:Inpatient Room: [place] [address] Study Status:Final Echo Event ID:[id number] Order ID: [id number] Reason for Study:AFIB, elevated BNP Procedures:2D Echo, Colorflow Doppler, Strain, Portable, Stat Race: SUMMARY: LV EF is severely depressed. Inferoposterior [place] Tethered posterior mitral leaflet with Moderate mitral regurgitation. FINDINGS: LV: LV size is vxecznnk-sf-xumggewh enlarged. LV EF is severely depressed. Estimated [...] of 5-10 mmHg. MEASUREMENTS: 2D Parasternal [place] Ds 4.5 cm LVPWd 1.1 cm [...] cm AV Mean G 13.8 mmHg AVpkAcRt 72352.1 cm/s2 AV AC 100 msec (83-118) AV [...] M.D. Performing Organization Address City/State/Zipcode Phone Number [facility] [address] [place] [address] Respiratory pathogen panel (01/10/2019 3:45 AM CRIME SPECIALIST) [facility] Respiratory Negative for all pathogens tested: RED JACKET pathogen panel Negative for Adenovirus DRUZE Negative for Coronavirus HKU1 [facility] Negative for Coronavirus NL63 Negative for Coronavirus [...] Specimen Nares - Right Performing Organization Address City/[facility] Phone Number [facility] DEPARTMENT OF PATHOLOGY AND [address] [place] [address] Gastrointestinal panel (01/10/2019 3:45 AM CRIME SPECIALIST) [facility] Gastrointestinal panel Positive for Giardia intestinalis (lamblia) RED JACKET DRUZE Negative for all other pathogens tested: HOSPITAL Negative for Salmonella Negative for Campylobacter Negative [...] Specimen Stool - Nonpreserved Performing Organization Address City/[facility] Phone Number [facility] DEPARTMENT OF PATHOLOGY AND [address] [place], [place] [phone] [place] [address] Occult blood, stool (01/10/2019 3:45 AM CRIME SPECIALIST) Pathologist [facility] Occult blood, Positive for Occult blood (A) [facility] stool Comment: HOSPITAL Specimen Information Specimen Source: Stool Specimen Site: Nonpreserved Specimen Stool - Nonpreserved Performing Organization Address [facility] Phone Number [facility] DEPARTMENT OF PATHOLOGY AND [address] [place] [address] Blood culture, aerobic & anaerobic (01/10/2019 3:45 AM CRIME SPECIALIST) Pathologist [facility] Blood culture No growth after 5 days of incubation. [facility] isolate Comment: HOSPITAL Specimen Information Specimen Source: Blood Specimen Site: Forearm, left Specimen Blood - Forearm, left Performing Organization Address [facility] Phone Number [facility] DEPARTMENT OF PATHOLOGY AND [address] [place] [phone] Fibrinogen (01/10/2019 3:45 AM CRIME SPECIALIST) Pathologist [facility] Fibrinogen 284 200 - 450 mg/dL [facility] Specimen Blood Performing Organization Address [facility] Phone Number [facility] DEPARTMENT OF PATHOLOGY AND [address] [place] [address] D-dimer (01/10/2019 3:45 AM CRIME SPECIALIST) Pathologist [facility] D-dimer 6.04 (H) 0.00 - 0.40 [facility] Comment: ug/mL [facility] Units are ug/ml Fibrinogen Equivalent Unit. [...] and malignancies. Specimen Blood Performing Organization Address City/[facility]/Zipcode Phone Number [facility] DEPARTMENT OF PATHOLOGY AND [address] [place] [phone] [place] [phone] Type and screen (01/10/2019 3:45 AM CRIME SPECIALIST)Only the most recent of2 resultswithin the time period is included. ABO grouping A [facility] Rh type POS [facility] Antibody screen (gel) NEG [facility] Specimen Blood Performing Organization Address [facility] Phone Number [facility] DEPARTMENT OF PATHOLOGY AND [address] [place] [phone] [place] [address] Lipase level (01/10/2019 3:45 AM CRIME SPECIALIST) Lipase 42 13 - 60 U/L [facility] Specimen Plasma specimen Performing Organization Address [facility] Phone Number [facility] DEPARTMENT OF PATHOLOGY AND [address] [place] [phone] [place] [phone] Lactic acid level (01/10/2019 3:45 AM CRIME SPECIALIST) Lactic acid 2.5 (H) 0.5 - 2.2 mmol/L [facility] Specimen Plasma specimen Performing Organization Address [facility] Phone Number [facility] DEPARTMENT OF PATHOLOGY AND [address] [place] [address] Creatine kinase, total (CPK) (01/10/2019 3:45 AM CRIME SPECIALIST) Creatine kinase 23 (L) 39 - 308 U/L [facility] Specimen Plasma specimen Performing Organization Address City/[facility] Phone Number [facility] DEPARTMENT OF PATHOLOGY AND [address] [place] [address] Amylase level (01/10/2019 3:45 AM CRIME SPECIALIST) Amylase 25 (L) 28 - 100 U/L [facility] Specimen Plasma specimen Performing Organization Address City/[facility] Phone Number [facility] DEPARTMENT OF PATHOLOGY AND [address] [place] [phone] [place] [address] Surgical pathology request (11/22/2018 5:30 PM CRIME SPECIALIST)Only the most recent of2 resultswithin the time period is included. [facility] DEPARTMENT OF PATHOLOGY AND GENOMIC MEDICINE Surgical pathology See link below [facility] DEPARTMENT OF report for PDF Lab PATHOLOGY AND Report GENOMIC MEDICINE Result status This is Final [facility] DEPARTMENT OF Report for PATHOLOGY AND [id number] GENOMIC MEDICINE Specimen Performing Organization Address City/[facility] Phone Number [facility] DEPARTMENT OF PATHOLOGY AND [address] [place] [address] GENOMIC MEDICINE Transfuse RBC (11/22/2018 5:20 PM CRIME SPECIALIST)Only the most recent of2 resultswithin the time period is included.Sodium level, syringe (11/21/2018 8:25 AM CRIME SPECIALIST) Sodium, syringe 144 135 - 148 mEq/L [facility] Specimen Blood Performing Organization Address City/[facility] Hospital[facility] Phone Number [facility] DEPARTMENT OF PATHOLOGY AND [address] [place] [phone] Potassium, syringe (11/21/2018 8:25 AM CRIME SPECIALIST) Potassium, syringe 3.3 (L) 3.5 - 5.0 mEq/L [facility] Specimen Blood Performing Organization Address City/[facility] Phone Number [facility] DEPARTMENT OF PATHOLOGY AND [address] [place] [phone] Lactic acid, syringe (11/21/2018 8:25 AM CRIME SPECIALIST) Lactic acid, syringe 0.9 0.5 - 2.2 mmol/L [facility] Specimen Blood Performing Organization Address City/[facility]/Zipcode Phone Number [facility] DEPARTMENT OF PATHOLOGY AND [address] [place] [address] Ionized calcium, arterial (11/21/2018 8:25 AM CRIME SPECIALIST) Ionized calcium, 1.05 (L) 1.11 - 1.32 [facility] arterial mmol/L HOSPITAL Specimen Blood Performing Organization Address City/[facility] Hospitalcovt Phone Number [facility] DEPARTMENT OF PATHOLOGY AND [address] [place] [address] [address] Hemoglobin, syringe (11/21/2018 8:25 AM CRIME SPECIALIST) Hemoglobin, syringe 11.7 (L) 14.0 - 18.0 g/dL [facility] Specimen Blood Performing Organization Address City/[facility] Phone Number [facility] DEPARTMENT OF PATHOLOGY AND [address] [place] [phone] Glucose level, syringe (11/21/2018 8:25 AM CRIME SPECIALIST) Glucose, syringe 85 65 - 99 mg/dL [facility] Specimen Blood Performing Organization Address City/[facility] Phone Number [facility] DEPARTMENT OF PATHOLOGY AND [address] [place] [phone] [address] Arterial blood gas (11/21/2018 8:25 AM CRIME SPECIALIST) pH, arterial 7.37 7.35 - 7.45 [facility] pCO2, arterial 36 35 - 45 mmHg [facility] pO2, arterial 196 (H) 80 - 90 mmHg [facility] Bicarbonate, 20.4 (L) 21.0 - 28.0 [facility] mmol/L [facility] Base excess, -4 (L) -2 - 2 mEq/L [facility] O2 saturation, 99 95 - 100 % [facility] Specimen Blood Performing Organization Address City/[facility] Phone Number [facility] DEPARTMENT OF PATHOLOGY AND [address] [place], [place] [phone] [address] [address] ECG Pre/Post Op (11/15/2018 1:02 PM CRIME SPECIALIST) Ventricular rate 68 [facility] Atrial rate 68 [facility] TX interval 248 [facility] QRSD interval 110 [facility] QT interval 424 [facility] QTC interval 450 [facility] P axis 1 20 [facility] QRS axis 1 -5 [facility] T wave axis 2 HM MUSE EKG impression Sinus rhythm with 1st [facility] degree AV block-Anteroseptal infarct , age undetermined-Abnormal ECG-No previous ECGs available-Electronicall y Signed By Christopher Reddy MD ([id number]) on 11/15/2018 5:02:44 PM Specimen Narrative Performed At Performing Organization Address City/State/Zipcode Phone Number [facility] MUSE [address] [place] [phone] Carcinoembryonic antigen (CEA) (11/15/2018 12:52 PM CRIME SPECIALIST) CEA 2.8 0.0 - 3.8 [facility] Comment: ng/mL [facility] Reference range for heavy smokers:0.0 - 5.5 ng/mL The JENNY Kathie 8000 CEA immunoassay was used. Results obtained with different assay methods or kits should not be used interchangeably and may be different. Specimen Serum Performing Organization Address City/State/[facility] Phone Number [facility] DEPARTMENT OF PATHOLOGY AND [address] [place] [address] Prepare RBC (11/15/2018 12:43 PM CRIME SPECIALIST)Only the most recent of2 resultswithin the time period is included. Product name Red Blood Cells [facility] -[facility], [facility] Unit number [id number] [facility] Product code [id number] [facility] Dispense status Transfused [facility] Blood expiration [facility] Blood type code 6200 [facility] Blood type A POSITIVE [facility] Product name Red Blood Cells [facility] -[facility], [facility] Unit number [id number] [facility] Product code [id number] [facility] Dispense status Returned to BB not [facility] Blood expiration [facility] Blood type code 6200 [facility] Blood type A POSITIVE [facility] Specimen Performing Organization Address City/State/Zipcode Phone Number [facility] DEPARTMENT OF PATHOLOGY AND [address] [place] [phone] after 04/05/2018 Advance Directives Patient has advance care planning documents, and code status on file. For more information, please contact:El Hedrick[address] [place] [address] Code Status Date Activated Date Inactivated Comments Full Code 11/21/2018 1:01 PM 11/26/2018 9:19 PM Code Status decision reached by: Patient
--- OUTSIDE RECORDS SUMMARY | 2019-04-06 11:38 | XMS REPORT | Clinical Summary ---
:1940 Author Organization [facility] Address [address] [place] [address] Care Team Providers Name Role Phone Paula [...] Not on file Results Not on fileafter 04/05/2018 Insurance Payer Benefit Plan / Subscriber ID Type Phone Address Group [employer] - MEDICARE AETNA MEDICARE HMO xxxxxxxx [phone] [address] [place] [address] (Home) [place] [address]
[2019-04-06 13:38] LABS: Protime INR 1.18
[2019-04-06 13:41] LABS: Hematocrit 26.4 % (39.6-49.0); RBC Red Blood Cell Count 2.55 M/uL (4.33-5.43)
[2019-04-06 13:42] LABS: Absolute Lymphocytes (CBC) 0.8 K/uL (0.7-4.9); Absolute Monocytes 0.4 K/uL (0.1-1.3); Absolute Neutrophil 5.3 K/uL (1.8-8.0); Basophils % 0.4 % (0-1.3); Eosinophils % 1.8 % (0-4.4); Lymphocytes % 11.5 % (15.3-44.8); MPV 8.9 fL (7.6-11.3); Monocytes % 5.5 % (3.3-12.3)
[2019-04-06 13:49] LABS: BUN Blood Urea Nitrogen 25 mg/dL (7-18); Bicarbonate 20 mmol/L (21-32); Glucose Level 106 mg/dL (74-106); Potassium 4.2 mmol/L (3.5-5.1); Sodium Level 145 mmol/L (136-145)
--- NOTE | 2019-04-06 13:52 | RAD REPORT ---
EXAM DESCRIPTION: RAD - Chest Single View - 04/06/2019 1:27 pm CLINICAL HISTORY: Cough, hemoptysis COMPARISON: March 17, March 14 TECHNIQUE: AP portable chest image was obtained 1325 hour . FINDINGS: Extensive interstitial lung disease is present. There is interstitial and patchy alveolar opacities in the mid and upper right lung field progressive from prior imaging. Cardiomegaly is prese nt similar to comparison. Vasculature is prominent. No pneumothorax or large pleural effusion. No acu te bony abnormality seen. No acute aortic findings suspected. IMPRESSION: Extensive chronic interstitial lung disease present. Increased interstitial and alveolar opacification in the right lung field. Current presentation shows overlapping characteristics of both pneumonia and CHF/volume overload.
[2019-04-06 15:55] LABS: Urine Blood NEGATIVE (NEG); Urine Glucose NEGATIVE (NEG)
[2019-04-06 15:56] LABS: Urine Protein TRACE (NEG)
[2019-04-06 16:10] LABS: Albumin 2.3 g/dL (3.4-5.0); Bilirubin Direct 0.2 mg/dL (0-0.2); Bilirubin Total 0.7 mg/dL (0.2-1.0); Protein, Total 4.8 g/dL (6.4-8.2)
--- NOTE | 2019-04-06 16:47 | ER ---
Nurse's Notes [facility] Name: Gautam Ramirez Jr Age: 79 yrs Sex: Male : 1940 Arrival Date: 04/06/2019 Time: 11:57 Bed 16 Private MD: Jaspal Ramos T Diagnosis: Rash and other nonspecific skin eruption;Purpura and other hemorrhagic conditions Presentation: 04/06 11:59 Presenting complaint: states: has been coughing up streaks of blood in morning X 3 iw days, hx of colon cancer, colon resection with colostomy, pt also states he's been feeling more tired than usual and is still losing weight despite eating 3 times per day, pt denies pain or fever. Transition of care: patient was not received from another setting of care. Onset of symptoms was April 03, 2019. Risk Assessment: Do you want to hurt yourself or someone else? Patient reports no desire to harm self or others. Initial Sepsis Screen: Does the patient meet any 2 criteria? No. Patient's initial sepsis screen is negative. Does the patient have a suspected source of infection? No. Patient's initial sepsis screen is negative. Care prior to arrival: None. 11:59 Method Of Arrival: Wheelchair iw 11:59 Acuity: BENIGNO 2 iw Historical: - Allergies: 12:09 No Known Allergies; iw - Home Meds: 12:09 Advair HFA 115-21 mcg/actuation inhalation HFAA 2 puffs 2 times per day [Active]; iw allopurinol 300 mg Oral tab 1 tab once daily [Active]; isosorbide mononitrate 30 mg Oral Tb24 1 tab once daily [Active]; megestrol 40 mg Oral tab 5 tab daily [Active]; levothyroxine 50 mcg tab 1 tab once daily [Active]; zinc sulfate 220 (50) mg Oral cap daily [Active]; aspirin 81 mg Oral TbEC 1 tab once daily [Active]; atorvastatin 40 mg oral tab 1 tab once daily [Active]; lisinopril 2.5 mg Oral tab 1 tab once daily [Active]; - PMHx: 12:09 CAD; Hyperlipidemia; Hypertension; iw - PSHx: 12:09 Angioplasty; colon surgery; stents; iw - Immunization history:: Adult Immunizations up to date. - Social history:: Smoking status: Patient/guardian denies using tobacco. - Ebola Screening: : Patient negative for fever greater than or equal to 101.5 degrees Fahrenheit, and additional compatible Ebola Virus Disease symptoms Patient denies exposure to infectious person Patient denies travel to an Ebola-affected area in the 21 days before illness onset No symptoms or risks identified at this time. Screenin:13 Abuse screen: Denies threats or abuse. Denies injuries from another. Nutritional sg screening: No deficits noted. Tuberculosis screening: No symptoms or risk factors identified. Never had TB. Fall Risk None identified. Assessment: 12:15 General: Appears in no apparent distress. slender, well groomed, well developed, well sg nourished, Behavior is calm, cooperative, appropriate for age. Neuro: Level of Consciousness is awake, alert, obeys commands, Oriented to person, place, time. Cardiovascular: Patient's skin is warm and dry. Chest pain is denied. Respiratory: Airway is patent Respiratory effort is even, unlabored, Respiratory pattern is regular, symmetrical. GI: Abdomen is round non-distended, Reports tolerance of fluids, tolerance of food. : No signs and/or symptoms were reported regarding the genitourinary system. EENT: Oral mucosa is moist. Throat is clear Parent/caregiver reports the patient having spitting up red spit. Derm: No signs and/or symptoms reported regarding the dermatologic system. Musculoskeletal: No signs and/or symptoms reported regarding the musculoskeletal system. Vital Signs: 12:05 BP 92 / 61; Pulse 99; Resp 16; Temp 98.8; Pulse Ox 98% on R/A; Weight 68.67 kg (M); iw Height 6 ft. 0 in. (182.88 cm); Pain 0/10; 15:22 BP 107 / 66; Pulse 93; Resp 18; Pulse Ox 100% on R/A; sg 16:22 BP 108 / 72; Pulse 92; Resp 17; Pulse Ox 99% on R/A; Pain 0/10; sg 12:05 Body Mass Index 20.53 (68.67 kg, 182.88 cm) iw Visual Acuity: 17:01 Left Eye Visual acuity 20/40, Pupil size 4 mm, ; Right Eye Visual acuity 20/30, Pupil sg size 4 mm, ; Both Eyes Visual acuity 20/25; Without Lenses; ED Course: 11:57 Patient arrived in ED. mr 11:57 Jaspal Ramos MD is Private Physician. mr 12:04 Triage completed. iw 12:05 Arm band placed on. iw 12:51 Demarco Arreola MD is Attending Physician. kdr 12:51 Eliezer Amaya, RN is Primary Nurse. sg 13:17 Initial lab(s) drawn, by me, sent to lab. Inserted saline lock: 20 gauge in left 3 antecubital area, using aseptic technique. Blood collected. 13:28 CXR XRAY In Process Unspecified. EDMS 14:35 Urine collected: urinal, vaibhav in color. 3 16:46 Jaspal Ramos MD is Referral Physician. kdr Administered Medications: 17:04 Drug: Cipro 500 mg Route: PO; sg Outcome: 16:47 Discharge ordered by . kdr 17:21 Patient left the ED. rg4 Signatures: Dispatcher [employer] EDMS Eliezer Amaya, RN RN Demarco Arreola MD MD [facility], Rachel mr Kassidy Atkins, RN Parris Carl rg4 Harika Godoy 3
--- NOTE | 2019-04-06 16:48 | EDPHYS ---
Physician Documentation [facility] Name: Gautam Ramirez Jr Age: 79 yrs Sex: Male : 1940 Arrival Date: 04/06/2019 Time: 11:57 Bed 16 Private MD: Jaspal Ramos T ED Physician Demarco Arreola HPI: 04/06 18:08 This 79 yrs old Male presents to ER via Wheelchair with complaints of kdr Spitting up blood. 18:08 The patient or guardian reports cough, that is intermittent, described as mild, with kdr productive sputum, that is bloody. Onset: The symptoms/episode began/occurred gradually, today. Modifying factors: The symptoms are alleviated by nothing. the symptoms are aggravated by nothing. Associated signs and symptoms: The patient has no apparent associated signs or symptoms. Severity of symptoms: At their worst the symptoms were very mild in the emergency department the symptoms have resolved. The patient has not experienced similar symptoms in the past. The patient has not recently seen a physician. Historical: - Allergies: 12:09 No Known Allergies; iw - Home Meds: 12:09 Advair HFA 115-21 mcg/actuation inhalation HFAA 2 puffs 2 times per day [Active]; iw allopurinol 300 mg Oral tab 1 tab once daily [Active]; isosorbide mononitrate 30 mg Oral Tb24 1 tab once daily [Active]; megestrol 40 mg Oral tab 5 tab daily [Active]; levothyroxine 50 mcg tab 1 tab once daily [Active]; zinc sulfate 220 (50) mg Oral cap daily [Active]; aspirin 81 mg Oral TbEC 1 tab once daily [Active]; atorvastatin 40 mg oral tab 1 tab once daily [Active]; lisinopril 2.5 mg Oral tab 1 tab once daily [Active]; - PMHx: 12:09 CAD; Hyperlipidemia; Hypertension; iw - PSHx: 12:09 Angioplasty; colon surgery; stents; iw - Immunization history:: Adult Immunizations up to date. - Social history:: Smoking status: Patient/guardian denies using tobacco. - Ebola Screening: : Patient negative for fever greater than or equal to 101.5 degrees Fahrenheit, and additional compatible Ebola Virus Disease symptoms Patient denies exposure to infectious person Patient denies travel to an Ebola-affected area in the 21 days before illness onset No symptoms or risks identified at this time. ROS: 18:08 Constitutional: Negative for fever, chills, and weight loss, Eyes: Negative for injury, kdr pain, redness, and discharge, ENT: Negative for injury, pain, and discharge, Neck: Negative for injury, pain, and swelling, Cardiovascular: Negative for chest pain, palpitations, and edema, Abdomen/GI: Negative for abdominal pain, nausea, vomiting, diarrhea, and constipation, Back: Negative for injury and pain, : Negative for injury, bleeding, discharge, and swelling, MS/Extremity: Negative for injury and deformity, Skin: Negative for injury, rash, and discoloration, Neuro: Negative for headache, weakness, numbness, tingling, and seizure activity. Psych: Negative for depression, anxiety, suicide ideation, homicidal ideation, and hallucinations, Allergy/Immunology: Negative for hives, rash, and allergies, Endocrine: Negative for neck swelling, polydipsia, polyuria, polyphagia, and marked weight changes, Hematologic/Lymphatic: Negative for swollen nodes, abnormal bleeding, and unusual bruising. 18:08 Respiratory: Positive for cough, with rust-colored sputum, dyspnea on exertion, hemoptysis, shortness of breath, Negative for orthopnea, wheezing. 18:08 Skin: Positive for rash, To lower extremities with significant ecchymosis to upper kdr extremities. Exam: 18:08 Constitutional: This is a well developed, well nourished patient who is awake, alert, kdr and in no acute distress. Head/Face: Normocephalic, atraumatic. Eyes: Pupils equal round and reactive to light, extra-ocular motions intact. Lids and lashes normal. Conjunctiva and sclera are non-icteric and not injected. Cornea within normal limits. Periorbital areas with no swelling, redness, or edema. Neck: Trachea midline, no thyromegaly or masses palpated, and no cervical lymphadenopathy. Supple, full range of motion without nuchal rigidity, or vertebral point tenderness. No Meningismus. Chest/axilla: Normal chest wall appearance and motion. Nontender with no deformity. No lesions are appreciated. Cardiovascular: Regular rate and rhythm with a normal S1 and S2. No gallops, murmurs, or rubs. Normal PMI, no JVD. No pulse deficits. Respiratory: Lungs have equal breath sounds bilaterally, clear to auscultation and percussion. No rales, rhonchi or wheezes noted. No increased work of breathing, no retractions or nasal flaring. Abdomen/GI: Soft, non-tender, with normal bowel sounds. No distension or tympany. No guarding or rebound. No evidence of tenderness throughout. Back: No spinal tenderness. No costovertebral tenderness. Full range of motion. MS/ Extremity: Pulses equal, no cyanosis. Neurovascular intact. Full, normal range of motion. Neuro: Awake and alert, GCS 15, oriented to person, place, time, and situation. Cranial nerves II-XII grossly intact. Motor strength 5/5 in all extremities. Sensory grossly intact. Cerebellar exam normal. Normal gait. Psych: Awake, alert, with orientation to person, place and time. Behavior, mood, and affect are within normal limits. 18:08 Skin: rash a mild rash is noted, rash can be described as Purpuric rash to the lower extremities to just above the knees. Vital Signs: 12:05 BP 92 / 61; Pulse 99; Resp 16; Temp 98.8; Pulse Ox 98% on R/A; Weight 68.67 kg (M); iw Height 6 ft. 0 in. (182.88 cm); Pain 0/10; 15:22 BP 107 / 66; Pulse 93; Resp 18; Pulse Ox 100% on R/A; sg 16:22 BP 108 / 72; Pulse 92; Resp 17; Pulse Ox 99% on R/A; Pain 0/10; sg 12:05 Body Mass Index 20.53 (68.67 kg, 182.88 cm) iw Visual Acuity: 17:01 Left Eye Visual acuity 20/40, Pupil size 4 mm, ; Right Eye Visual acuity 20/30, Pupil sg size 4 mm, ; Both Eyes Visual acuity 20/25; Without Lenses; MDM: 16:47 Patient medically screened. kdr 18:08 Data reviewed: vital signs, nurses notes, lab test result(s), radiologic studies. kdr Counseling: I had a detailed discussion with the patient and/or guardian regarding: the historical points, exam findings, and any diagnostic results supporting the discharge/admit diagnosis, lab results, radiology results, the need for outpatient follow up. Physician consultation: Jaspal Ramos MD regarding consult, patient's condition, outpatient follow-up, and will see patient in office, in 2-3 days. 04/06 12:52 Order name: CBC with Diff; Complete Time: 14:16 kdr 04/06 12:52 Order name: Chem 7; Complete Time: 14:16 kdr 04/06 12:52 Order name: PT-INR; Complete Time: 14:16 kdr 04/06 13:05 Order name: ESR; Complete Time: 14:16 kdr 04/06 13:05 Order name: CRP; Complete Time: 14:16 [facility] 04/06 14:35 Order name: Urine Dipstick--Ancillary (enter results) eb 04/06 12:52 Order name: CXR XRAY; Complete Time: 14:16 [facility] 04/06 13:07 Order name: Urine Dipstick-Ancillary (obtain specimen); Complete Time: 14:48 kdr 04/06 14:37 Order name: Urine Dipstick-Ancillary; Complete Time: 16:02 EDMS 04/06 15:51 Order name: LFT's; Complete Time: 16:13 [facility] 04/06 16:41 Order name: Visual Acuity; Complete Time: 17:05 [facility] Administered Medications: 17:04 Drug: Cipro 500 mg Route: PO; sg Disposition: 04/06/19 16:47 Discharged to Home. Impression: Rash and other nonspecific skin eruption, Purpura and other hemorrhagic conditions. - Condition is Stable. - Discharge Instructions: Rash, [id number], Community-Acquired Pneumonia, Adult, [id number]. - Prescriptions for Cipro 500 mg Oral Tablet - take 1 tablet by ORAL route every 12 hours for 10 days; 20 tablet. - Medication Reconciliation Form, Thank You Letter form. - Follow up: Jaspal Ramos MD; When: 2 - 3 days; Reason: If symptoms return, Further diagnostic work-up, Recheck today's complaints, Continuance of care, Re-evaluation by your physician. - Problem is an ongoing problem. - Symptoms are unchanged. - Notes: Stop aspirin. Follow-up with Dr. Ramos on Sunday - call for an appointment Signatures: Dispatcher [employer] EDEliezer Looney RN HERO sg Demarco Arreola MD MD [facility] Kassidy Atkins RN RN Parris Sears rg4 Corrections: (The following items were deleted from the chart) 17:21 16:47 04/06/2019 16:47 Discharged to Home. Impression: Rash and other nonspecific skin rg4 eruption; Purpura and other hemorrhagic conditions. Condition is Stable. Forms are Medication Reconciliation Form, Thank You Letter, Antibiotic Education, Prescription Opioid Use. Follow up: Jaspal Ramos; When: 2 - 3 days; Reason: If symptoms return, Further diagnostic work-up, Recheck today's complaints, Continuance of care, Re-evaluation by your physician. Problem is an ongoing problem. Symptoms are unchanged. kdr
[2019-04-06] MEDS ORDERED: CIPROFLOXACIN HCL 500 MG TAB ONE (17:22)
[2019-04-06 18:18] VITALS: TEMP 98.8
[2019-04-06 18:20] VITALS: BP 108/72; O2SAT 99
== END 2019-04-06 17:21 | disposition home or self-care (01) ==
LOC: ER 11:32
DX: R21 Rash and other nonspecific skin eruption (principal); D69.2 Other nonthrombocytopenic purpura; Z79.82 Long term (current) use of aspirin; I25.10 Atherosclerotic heart disease of native coronary artery without angina pectoris; I10 Essential (primary) hypertension; E78.5 Hyperlipidemia, unspecified
CPT/HCPCS: 36415; 71045; 80048; 80076; 81003; 85025; 85610; 85652; 86140; 99284

== ENCOUNTER 2019-06-10 11:35 | Inpatient (IN) | payer OTHER ==
--- OUTSIDE RECORDS SUMMARY | 2019-06-10 11:40 | XMS REPORT | Clinical Summary ---
:1940 Author Organization [facility] Address [address] [place] [address] Care Team Providers Name Role Phone Paula [...] Not on file Results Not on fileafter 06/09/2018 Insurance Payer Benefit Plan / Subscriber ID Type Phone Address Group [employer] - MEDICARE AETNA MEDICARE HMO xxxxxxxx [phone] [address] [place] [address] (Home) [place] [address]
--- OUTSIDE RECORDS SUMMARY | 2019-06-10 11:40 | XMS REPORT | Clinical Summary ---
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 Dx); MD Toño Moderate protein-calorie malnutrition (HCC) 01/23/2019 Patient Outreach Quality Tayler Howell RN 01/20/2019 Surgery Procedural Luis Rosen CV LEFT HEART CATH Cardiology MD Pieter LV GRAM WITH CORS [[id number] (CPT)] 01/10/2019 - Hospital Encounter Neurosurgery Nayely Flood Anemia due to acute blood loss (Primary Dx); 01/23/2019 MD Joaquin Orozco; Coronary artery disease without angina pectoris, unspecified vessel or lesion type, unspecified whether [place] or transplanted heart; Pulmonary hypertension (HCC) 01/09/2019 Intake Access N/A 12/02/2018 Intake Access N/A 11/22/2018 Anesthesia Event General Surgery Kassidy Hansen, AUTOMATIC MAINTAINER 11/22/2018 Surgery General Surgery Jonn Mora DIAGNOSTIC MD Toño LAPAROSCOPY, REVISION OF ANASTOMOSIS, DRAINAGE OF HEMATOMA 11/21/2018 Anesthesia Event General Surgery Shanna Machado, SINGING MESSENGER 11/21/2018 Surgery General Surgery Jonn Mora SINGLE [...] of ascending colon (HCC) (Primary Dx) after 06/09/2018 Family History Medical History Relation Name Comments [...] Vital Sign Reading Time Taken Blood Pressure 106/59 04/10/2019 2:21 PM CDT Pulse 99 04/10/2019 2:21 PM CDT Temperature 36.6 C (97.8 F) 04/10/2019 2:21 PM CDT Respiratory Rate 18 01/23/2019 12:16 PM CDT Oxygen Saturation 95% 01/23/2019 11:44 AM CDT Inhaled Oxygen Concentration - - Weight 70.5 kg (155 lb 6.8 oz) 01/10/2019 3:00 AM W[employer]ING [employer] ENGINE OPERATOR Height 185.4 cm (6' 1") 01/10/2019 3:00 AM [employer]ING [employer]ANE ENGINE OPERATOR Body Mass Index 20.51 01/10/2019 3:00 AM W[employer]ING [employer] ENGINE OPERATOR Plan of Treatment Health Maintenance Due Date Last Done Comments SHINGLES VACCINES (#1) 1989 65+ PNEUMOCOCCAL VACCINE (1 of 2 - PCV13) 2004 INFLUENZA VACCINE 06/12/2019 Procedures Procedure Name [...] vessel section. or lesion type, unspecified whether [place] or transplanted heart Pulmonary hypertension (HCC) ESTIMATED [...] Routine 01/18/2019 5:28 Results for this PM [employer]ING [employer] ENGINE OPERATOR procedure are in the results section. POC GLUCOSE Routine 01/18/2019 11:48 Results for this AM [employer]ING [employer] ENGINE OPERATOR procedure are in the results section. POC GLUCOSE Routine 01/18/2019 7:40 Results for this AM [employer]ING [employer] ENGINE OPERATOR procedure are in the results section. ESTIMATED GFR Routine 01/18/2019 4:52 Results for this AM [employer]ING [employer]ANE ENGINE OPERATOR procedure are in the results section. PARTIAL THROMBOPLASTIN Routine 01/18/2019 4:52 Results for this TIME (PTT) AM [employer]ING [employer] ENGINE OPERATOR procedure are in the results section. PROTHROMBIN TIME WITH Routine 01/18/2019 4:52 Results for this INR AM [employer]ING [employer] ENGINE OPERATOR procedure are in the results section. COMPREHENSIVE METABOLIC Routine 01/18/2019 4:52 Results for this PANEL AM [employer]ING [employer] ENGINE OPERATOR procedure are in the results section. B NATRIURETIC PEPTIDE Routine 01/18/2019 4:52 Results for this AM [employer]ING [employer] ENGINE OPERATOR procedure are in the results section. POC GLUCOSE Routine 01/17/2019 9:31 Results for this PM [employer] ENGINE OPERATOR procedure are in the results section. HC COMPLETE BLD COUNT Routine 01/17/2019 4:40 Results for this W/AUTO DIFF AM W[employer]ING [employer] ENGINE OPERATOR procedure are in the results section. ESTIMATED GFR Routine 01/17/2019 4:00 Results for this AM [employer]ING [employer] ENGINE OPERATOR procedure are in the results section. MAGNESIUM LEVEL Routine 01/17/2019 4:00 Results for this AM [employer]ING [employer] ENGINE OPERATOR procedure are in the results section. BASIC METABOLIC PANEL Routine 01/17/2019 4:00 Results for this AM [employer]ING [employer] ENGINE OPERATOR procedure are in the results section. CONSULT TO OSTOMY CARE Routine 01/16/2019 4:32 NURSE PM [employer] ENGINE OPERATOR ECHOCARDIOGRAM 2D Routine 01/16/2019 12:25 Results for this LIMITED PM [employer] ENGINE OPERATOR procedure are in the results section. B NATRIURETIC PEPTIDE Routine 01/16/2019 6:05 Results for this AM [employer]ING [employer] ENGINE OPERATOR procedure are in the results section. ESTIMATED GFR Routine 01/16/2019 4:00 Results for this AM [employer]ING [employer] ENGINE OPERATOR procedure are in the results section. BASIC METABOLIC PANEL Routine 01/16/2019 4:00 Results for this AM W[employer]ING [employer] ENGINE OPERATOR procedure are in the results section. MAGNESIUM LEVEL Routine 01/16/2019 4:00 Results for this AM [employer]ING [employer] ENGINE OPERATOR procedure are in the results section. VANCOMYCIN LEVEL, TROUGH Routine 01/16/2019 4:00 Results for this AM [employer] ENGINE OPERATOR procedure are in the results section. POC GLUCOSE Routine 01/15/2019 5:53 Results for this PM [employer] ENGINE OPERATOR procedure are in the results section. POC GLUCOSE Routine 01/15/2019 12:02 Results for this PM [employer] ENGINE OPERATOR procedure are in the results section. ECG 12-LEAD Routine 01/15/2019 8:20 Results for this AM [employer]ING [employer] ENGINE OPERATOR procedure are in the results section. POC GLUCOSE Routine 01/15/2019 7:58 Results for this AM [employer]ING [employer] ENGINE OPERATOR procedure are in the results section. ESTIMATED GFR Routine 01/15/2019 5:10 Results for this AM W[employer]ING [employer] ENGINE OPERATOR procedure are in the results section. MAGNESIUM LEVEL Routine 01/15/2019 5:10 Results for this AM W[employer]ING [employer] ENGINE OPERATOR procedure are in the results section. BASIC METABOLIC PANEL Routine 01/15/2019 5:10 Results for this AM W[employer]ING [employer] ENGINE OPERATOR procedure are in the results section. POC GLUCOSE Routine 01/14/2019 8:53 Results for this PM [employer]ING [employer] ENGINE OPERATOR procedure are in the results section. POC GLUCOSE Routine 01/14/2019 5:43 Results for this PM [employer]ING [employer] ENGINE OPERATOR procedure are in the results section. POC GLUCOSE Routine 01/14/2019 11:59 Results for this AM W[employer]ING [employer] ENGINE OPERATOR procedure are in the results section. VANCOMYCIN LEVEL, TROUGH Routine 01/14/2019 11:05 Results for this AM W[employer]ING [employer] ENGINE OPERATOR procedure are in the results section. GRAM STAIN Routine 01/14/2019 11:05 Results for this AM W[employer]ING [employer] ENGINE OPERATOR procedure are in the results section. AEROBIC CULTURE Routine 01/14/2019 11:05 Results for this AM W[employer]ING [employer] ENGINE OPERATOR procedure are in the results section. ANAEROBIC CULTURE Routine 01/14/2019 10:05 Results for this AM W[employer] ENGINE OPERATOR procedure are in the results section. POC GLUCOSE Routine 01/14/2019 7:59 Results for this AM W[employer]ING [employer] ENGINE OPERATOR procedure are in the results section. B NATRIURETIC PEPTIDE Routine 01/14/2019 5:00 Results for this AM W[employer]ING [employer] ENGINE OPERATOR procedure are in the results section. HC COMPLETE BLD COUNT Routine 01/14/2019 5:00 Results for this W/AUTO DIFF AM W[employer]ING [employer]ANE ENGINE OPERATOR procedure are in the results section. ESTIMATED GFR Routine 01/14/2019 4:00 Results for this AM W[employer] ENGINE OPERATOR procedure are in the results section. BASIC METABOLIC PANEL Routine 01/14/2019 4:00 Results for this AM W[employer]ING [employer] ENGINE OPERATOR procedure are in the results section. HIV AG/AB COMBINATION Routine 01/14/2019 4:00 Results for this AM W[employer]ING [employer] ENGINE OPERATOR procedure are in the results section. POC GLUCOSE Routine 01/13/2019 8:40 Results for this PM [employer] ENGINE OPERATOR procedure are in the results section. POC GLUCOSE Routine 01/13/2019 6:02 Results for this PM [employer]ING [employer] ENGINE OPERATOR procedure are in the results section. POC GLUCOSE Routine 01/13/2019 12:16 Results for this PM [employer]ING [employer] ENGINE OPERATOR procedure are in the results section. US CAROTID DUPLEX Routine 01/13/2019 9:45 Results for this BILATERAL AM [employer] ENGINE OPERATOR procedure are in the results section. POC GLUCOSE Routine 01/13/2019 7:51 Results for this AM W[employer]ING [employer] ENGINE OPERATOR procedure are in the results section. ESTIMATED GFR Routine 01/13/2019 3:30 Results for this AM W[employer]ING [employer] ENGINE OPERATOR procedure are in the results section. VITAMIN B12 LEVEL Routine 01/13/2019 3:30 Results for this AM W[employer]ING [employer] ENGINE OPERATOR procedure are in the results section. TOTAL IRON BINDING Routine 01/13/2019 3:30 Results for this CAPACITY AM [employer]ING [employer] ENGINE OPERATOR procedure are in the results section. RETICULOCYTE COUNT Routine 01/13/2019 3:30 Results for this AM W[employer] ENGINE OPERATOR procedure are in the results section. FOLATE LEVEL Routine 01/13/2019 3:30 Results for this AM W[employer]ING [employer] ENGINE OPERATOR procedure are in the results section. PHOSPHORUS LEVEL Routine 01/13/2019 3:30 Results for this AM W[employer]ING [employer] ENGINE OPERATOR procedure are in the results section. MAGNESIUM LEVEL Routine 01/13/2019 3:30 Results for this AM W[employer]ING [employer] ENGINE OPERATOR procedure are in the results section. CBC WITH PLATELET AND Routine 01/13/2019 3:30 Results for this DIFFERENTIAL AM [employer]ING [employer] ENGINE OPERATOR procedure are in the results section. BASIC METABOLIC PANEL Routine 01/13/2019 3:30 Results for this AM W[employer]ING [employer] ENGINE OPERATOR procedure are in the results section. POC GLUCOSE Routine 01/12/2019 8:54 Results for this PM [employer] ENGINE OPERATOR procedure are in the results section. ESTIMATED GFR Timed 01/12/2019 7:30 Results for this PM W[employer]ING [employer] ENGINE OPERATOR procedure are in the results section. MAGNESIUM LEVEL Timed 01/12/2019 7:30 Results for this PM W[employer]ING [employer] ENGINE OPERATOR procedure are in the results section. BASIC METABOLIC PANEL Timed 01/12/2019 7:30 Results for this PM W[employer]ING [employer] ENGINE OPERATOR procedure are in the results section. POC GLUCOSE Routine 01/12/2019 12:13 Results for this PM W[employer]ING [employer] ENGINE OPERATOR procedure are in the results section. POC GLUCOSE Routine 01/12/2019 8:05 Results for this AM W[employer]ING [employer] ENGINE OPERATOR procedure are in the results section. ESTIMATED GFR Routine 01/12/2019 5:50 Results for this AM W[employer]ING [employer] ENGINE OPERATOR procedure are in the results section. COMPREHENSIVE METABOLIC Routine 01/12/2019 5:50 Results for this PANEL AM [employer] ENGINE OPERATOR procedure are in the results section. HC COMPLETE BLD COUNT Routine 01/12/2019 5:50 Results for this W/AUTO DIFF AM W[employer]ING [employer] ENGINE OPERATOR procedure are in the results section. T3, FREE Routine 01/12/2019 5:50 Results for this AM [employer] ENGINE OPERATOR procedure are in the results section. T4, FREE Routine 01/12/2019 5:50 Results for this AM W[employer] ENGINE OPERATOR procedure are in the results section. THYROID STIMULATING Routine 01/12/2019 5:50 Results for this HORMONE AM [employer]ING [employer] ENGINE OPERATOR procedure are in the results section. CORTISOL LEVEL, AM Routine 01/12/2019 5:50 Results for this AM [employer] ENGINE OPERATOR procedure are in the results section. POC GLUCOSE Routine 01/11/2019 9:13 Results for this PM [employer] ENGINE OPERATOR procedure are in the results section. POC GLUCOSE Routine 01/11/2019 4:58 Results for this PM [employer]ING [employer] ENGINE OPERATOR procedure are in the results section. THYROID PEROXIDASE Routine 01/11/2019 1:10 Results for this ANTIBODY PM [employer] ENGINE OPERATOR procedure are in the results section. POC GLUCOSE Routine 01/11/2019 12:25 Results for this PM [employer]ING [employer] ENGINE OPERATOR procedure are in the results section. ECG 12-LEAD Routine 01/11/2019 11:15 Results for this AM [employer]ING [employer] ENGINE OPERATOR procedure are in the results section. POC GLUCOSE Routine 01/11/2019 7:45 Results for this AM W[employer]ING [employer] ENGINE OPERATOR procedure are in the results section. ESTIMATED GFR Routine 01/11/2019 3:30 Results for this AM W[employer]ING [employer] ENGINE OPERATOR procedure are in the results section. IONIZED CALCIUM Routine 01/11/2019 3:30 Results for this AM W[employer]ING [employer] ENGINE OPERATOR procedure are in the results section. PHOSPHORUS LEVEL Routine 01/11/2019 3:30 Results for this AM W[employer] ENGINE OPERATOR procedure are in the results section. MAGNESIUM LEVEL Routine 01/11/2019 3:30 Results for this AM W[employer] ENGINE OPERATOR procedure are in the results section. HEPATIC FUNCTION PANEL Routine 01/11/2019 3:30 Results for this AM W[employer] ENGINE OPERATOR procedure are in the results section. HC COMPLETE BLD COUNT Routine 01/11/2019 3:30 Results for this W/AUTO DIFF AM W[employer] ENGINE OPERATOR procedure are in the results section. BASIC METABOLIC PANEL Routine 01/11/2019 3:30 Results for this AM W[employer] ENGINE OPERATOR procedure are in the results section. POC GLUCOSE Routine 01/11/2019 1:06 Results for this AM W[employer] ENGINE OPERATOR procedure are in the results section. POC GLUCOSE Routine 01/10/2019 8:35 Results for this PM [employer] ENGINE OPERATOR procedure are in the results section. TROPONIN Timed 01/10/2019 8:10 Results for this PM W[employer]ING [employer] ENGINE OPERATOR procedure are in the results section. HEMOGLOBIN & HEMATOCRIT Timed 01/10/2019 8:10 Results for this PM W[employer] ENGINE OPERATOR procedure are in the results section. POC GLUCOSE Routine 01/10/2019 5:19 Results for this PM W[employer]ING [employer] ENGINE OPERATOR procedure are in the results section. THYROID STIMULATING Routine 01/10/2019 5:16 Results for this HORMONE PM W[employer]ING [employer]ANE ENGINE OPERATOR procedure are in the results section. HEPATITIS ACUTE PANEL Routine 01/10/2019 5:16 Results for this PM W[employer] ENGINE OPERATOR procedure are in the results section. T4 Routine 01/10/2019 5:16 Results for this PM W[employer] ENGINE OPERATOR procedure are in the results section. CONSULT TO OSTOMY CARE Routine 01/10/2019 4:47 NURSE PM [employer] ENGINE OPERATOR TROPONIN Routine 01/10/2019 1:06 Results for this PM W[employer] ENGINE OPERATOR procedure are in the results section. HEMOGLOBIN & HEMATOCRIT STAT 01/10/2019 12:15 Results for this PM W[employer]ING [employer] ENGINE OPERATOR procedure are in the results section. LACTIC ACID LEVEL, Timed 01/10/2019 12:15 Results for this SEPSIS - NOW AND REPEAT PM W[employer]ING [employer] ENGINE OPERATOR procedure are in 2X EVERY 3 HOURS the results section. CREATININE LEVEL, URINE, Routine 01/10/2019 12:12 Results for this RANDOM PM [employer] ENGINE OPERATOR procedure are in the results section. SODIUM LEVEL, URINE, Routine 01/10/2019 12:12 Results for this RANDOM PM [employer] ENGINE OPERATOR procedure are in the results section. POC GLUCOSE Routine 01/10/2019 12:01 Results for this PM W[employer] ENGINE OPERATOR procedure are in the results section. ECG 12-LEAD Routine 01/10/2019 11:33 Results for this AM W[employer]ING [employer] ENGINE OPERATOR procedure are in the results section. CT HEAD WO CONTRAST STAT 01/10/2019 11:23 Results for this AM W[employer]ING [employer] ENGINE OPERATOR procedure are in the results section. CT ABDOMEN PELVIS WO STAT 01/10/2019 11:23 Results for this CONTRAST AM W[employer]ING [employer] ENGINE OPERATOR procedure are in the results section. XR PICC CHEST PORTABLE Routine 01/10/2019 11:00 [place] Results for this AM W[employer] ENGINE OPERATOR procedure are in the results section. HC CATH DUAL LUMEN PICC Routine 01/10/2019 9:58 Results for this AM W[employer] ENGINE OPERATOR procedure are in the results section. HC US GUIDED VASCULAR Routine 01/10/2019 9:58 Results for this ACCESS AM [employer]ING [employer] ENGINE OPERATOR procedure are in the results section. HC CVL PICC INSERT 5 YRS Routine 01/10/2019 9:58 Results for this OR > W/O IMG GUID AM W[employer]ANE ENGINE OPERATOR procedure are in the results section. LACTIC ACID LEVEL, Timed 01/10/2019 9:14 Results for this SEPSIS - NOW AND REPEAT AM [employer] ENGINE OPERATOR procedure are in 2X EVERY 3 HOURS the results section. POC GLUCOSE Routine 01/10/2019 8:33 Results for this AM W[employer] ENGINE OPERATOR procedure are in the results section. URINE CULTURE Routine 01/10/2019 7:31 Results for this AM W[employer] ENGINE OPERATOR procedure are in the results section. URINALYSIS SCREEN AND Routine 01/10/2019 7:24 Results for this MICROSCOPY, WITH REFLEX AM [employer]ING [employer]ANE ENGINE OPERATOR procedure are in TO CULTURE the results section. XR ABDOMEN 1 VW PORTABLE Routine 01/10/2019 6:53 Results for this AM [employer] ENGINE OPERATOR procedure are in the results section. XR CHEST 1 VW PORTABLE STAT 01/10/2019 6:53 Results for this AM W[employer] ENGINE OPERATOR procedure are in the results section. LACTIC ACID LEVEL, Timed 01/10/2019 6:45 Results for this SEPSIS - NOW AND REPEAT AM W[employer]ING [employer] ENGINE OPERATOR procedure are in 2X EVERY 3 HOURS the results section. ECHOCARDIOGRAM 2D STAT 01/10/2019 6:28 Results for this COMPLETE W MMODE AM [employer]ING [employer] ENGINE OPERATOR procedure are in SPECTRAL COLOR DOPPLER the results (66124) section. POC GLUCOSE Routine 01/10/2019 4:27 Results for this AM [employer] ENGINE OPERATOR procedure are in the results section. ESTIMATED GFR STAT 01/10/2019 3:45 Results for this AM W[employer] ENGINE OPERATOR procedure are in the results section. CREATINE KINASE, TOTAL STAT 01/10/2019 3:45 Results for this (CPK) AM [employer] ENGINE OPERATOR procedure are in the results section. TYPE AND SCREEN STAT 01/10/2019 3:45 Results for this AM [employer] ENGINE OPERATOR procedure are in the results section. B NATRIURETIC PEPTIDE STAT 01/10/2019 3:45 Results for this AM [employer] ENGINE OPERATOR procedure are in the results section. TROPONIN STAT 01/10/2019 3:45 Results for this AM [employer] ENGINE OPERATOR procedure are in the results section. PROTHROMBIN TIME WITH STAT 01/10/2019 3:45 Results for this INR AM W[employer]ING [employer]ANE ENGINE OPERATOR procedure are in the results section. PHOSPHORUS LEVEL STAT 01/10/2019 3:45 Results for this AM [employer] ENGINE OPERATOR procedure are in the results section. PARTIAL THROMBOPLASTIN STAT 01/10/2019 3:45 Results for this TIME (PTT) AM [employer] ENGINE OPERATOR procedure are in the results section. MAGNESIUM LEVEL STAT 01/10/2019 3:45 Results for this AM [employer] ENGINE OPERATOR procedure are in the results section. LIPASE LEVEL STAT 01/10/2019 3:45 Results for this AM [employer] ENGINE OPERATOR procedure are in the results section. LACTIC ACID LEVEL STAT 01/10/2019 3:45 Results for this AM [employer]ING [employer] ENGINE OPERATOR procedure are in the results section. IONIZED CALCIUM STAT 01/10/2019 3:45 Results for this AM [employer] ENGINE OPERATOR procedure are in the results section. HEPATIC FUNCTION PANEL STAT 01/10/2019 3:45 Results for this AM W[employer]ING [employer] ENGINE OPERATOR procedure are in the results section. FIBRINOGEN STAT 01/10/2019 3:45 Results for this AM [employer] ENGINE OPERATOR procedure are in the results section. D-DIMER STAT 01/10/2019 3:45 Results for this AM W[employer]ING [employer] ENGINE OPERATOR procedure are in the results section. COMPREHENSIVE METABOLIC STAT 01/10/2019 3:45 Results for this PANEL AM [employer] ENGINE OPERATOR procedure are in the results section. HC COMPLETE BLD COUNT STAT 01/10/2019 3:45 Results for this W/AUTO DIFF AM [employer] ENGINE OPERATOR procedure are in the results section. AMYLASE LEVEL STAT 01/10/2019 3:45 Results for this AM [employer] ENGINE OPERATOR procedure are in the results section. GASTROINTESTINAL PANEL Routine 01/10/2019 3:45 Results for this AM [employer] ENGINE OPERATOR procedure are in the results section. GRAM STAIN Routine 01/10/2019 3:45 Results for this AM [employer] ENGINE OPERATOR procedure are in the results section. ANAEROBIC CULTURE Routine 01/10/2019 3:45 Results for this AM [employer] ENGINE OPERATOR procedure are in the results section. AEROBIC CULTURE Routine 01/10/2019 3:45 Results for this AM [employer] ENGINE OPERATOR procedure are in the results section. OCCULT BLOOD, STOOL Routine 01/10/2019 3:45 Results for this AM [employer] ENGINE OPERATOR procedure are in the results section. BLOOD CULTURE, AEROBIC & Routine 01/10/2019 3:45 Results for this ANAEROBIC AM [employer] ENGINE OPERATOR procedure are in the results section. RESPIRATORY PATHOGEN Routine 01/10/2019 3:45 Results for this PANEL AM [employer] ENGINE OPERATOR procedure are in the results section. POC GLUCOSE Routine 01/10/2019 3:12 Results for this AM [employer] ENGINE OPERATOR procedure are in the results section. ECG 12-LEAD STAT 01/10/2019 2:51 Results for this AM [employer] ENGINE OPERATOR procedure are in the results section. ESTIMATED GFR Routine 11/26/2018 5:38 Results for this AM [employer] ENGINE OPERATOR procedure are in the results section. HEMOGLOBIN & HEMATOCRIT Routine 11/26/2018 5:38 Results for this AM [employer] ENGINE OPERATOR procedure are in the results section. BASIC METABOLIC PANEL Routine 11/26/2018 5:38 Results for this AM [employer] ENGINE OPERATOR procedure are in the results section. ESTIMATED GFR Routine 11/25/2018 9:03 Results for this AM [employer] ENGINE OPERATOR procedure are in the results section. BASIC METABOLIC PANEL Routine 11/25/2018 9:03 Results for this AM [employer] ENGINE OPERATOR procedure are in the results section. HC COMPLETE BLD COUNT Routine 11/25/2018 7:30 Results for this W/AUTO DIFF AM W[employer] ENGINE OPERATOR procedure are in the results section. ESTIMATED GFR Routine 11/24/2018 4:05 Results for this AM [employer] ENGINE OPERATOR procedure are in the results section. PHOSPHORUS LEVEL Routine 11/24/2018 4:05 Results for this AM [employer] ENGINE OPERATOR procedure are in the results section. MAGNESIUM LEVEL Routine 11/24/2018 4:05 Results for this AM [employer] ENGINE OPERATOR procedure are in the results section. BASIC METABOLIC PANEL Routine 11/24/2018 4:05 Results for this AM [employer] ENGINE OPERATOR procedure are in the results section. HC COMPLETE BLD COUNT Routine 11/24/2018 4:05 Results for this W/AUTO DIFF AM [employer] ENGINE OPERATOR procedure are in the results section. HEMOGLOBIN & HEMATOCRIT Timed 11/23/2018 3:00 Results for this PM [employer] ENGINE OPERATOR procedure are in the results section. HC COMPLETE BLD COUNT Routine 11/23/2018 4:05 Results for this W/AUTO DIFF AM [employer]ING [employer] ENGINE OPERATOR procedure are in the results section. ESTIMATED GFR Routine 11/23/2018 4:00 Results for this AM [employer]ING [employer] ENGINE OPERATOR procedure are in the results section. PHOSPHORUS LEVEL Routine 11/23/2018 4:00 Results for this AM [employer] ENGINE OPERATOR procedure are in the results section. MAGNESIUM LEVEL Routine 11/23/2018 4:00 Results for this AM [employer] ENGINE OPERATOR procedure are in the results section. BASIC METABOLIC PANEL Routine 11/23/2018 4:00 Results for this AM [employer] ENGINE OPERATOR procedure are in the results section. HC COMPLETE BLD COUNT Timed 11/22/2018 9:15 Results for this W/AUTO DIFF PM W[employer]ING [employer]ANE ENGINE OPERATOR procedure are in the results section. ESTIMATED GFR Timed 11/22/2018 8:00 Results for this PM [employer] ENGINE OPERATOR procedure are in the results section. BASIC METABOLIC PANEL Timed 11/22/2018 8:00 Results for this PM [employer] ENGINE OPERATOR procedure are in the results section. SURGICAL PATHOLOGY Routine 11/22/2018 5:30 Results for this REQUEST PM [employer] ENGINE OPERATOR procedure are in the results section. TRANSFUSE RED BLOOD Routine 11/22/2018 5:20 CELLS PM [employer] ENGINE OPERATOR TRANSFUSE RED BLOOD STAT 11/22/2018 4:09 CELLS PM [employer] ENGINE OPERATOR OR AN EMERGENT Routine 11/22/2018 3:[address] END[address] AIRWAY PM [employer]ING [employer] ENGINE OPERATOR Procedure Note - Kassidy Hansen CRNA - 11/22/2018 3:52 PM [employer] ENGINE OPERATOR ANESTHESIA INTUBATION Date/Time: 11/22/2018 3:25 PM Performed by: Kassidy Hansen CRNA Authorized by: Felipe Trejo MD Location: OR Urgency: Emergent Difficult Airway: No Anesthesiologist: Rodrigo Oates MD Resident/AUTOMATIC MAINTAINER/AA: Kassidy Hansen CRNA Performed by: resident/AUTOMATIC MAINTAINER/AA Consent Cannot be Obtained Due to Urgency: [...] SUCCESSFULL SIGMOIDECTOMY, 11/22/2018 2:50 PM bleeding LAPAROSCOPIC WRECKING CRANE ENGINE OPERATOR ESTIMATED GFR Timed 11/22/2018 12:15 PM Results for this WRECKING CRANE ENGINE OPERATOR procedure are in the results section. HC COMPLETE BLD COUNT Timed 11/22/2018 12:15 PM Results for this W/AUTO DIFF WRECKING CRANE ENGINE OPERATOR procedure are in the results section. PHOSPHORUS LEVEL Timed 11/22/2018 12:15 PM Results for this WRECKING CRANE ENGINE OPERATOR procedure are in the results section. BASIC METABOLIC PANEL Timed 11/22/2018 12:15 PM Results for this WRECKING CRANE ENGINE OPERATOR procedure are in the results section. ESTIMATED GFR Routine 11/22/2018 3:40 AM Results for this WRECKING CRANE ENGINE OPERATOR procedure are in the results section. PHOSPHORUS LEVEL Routine 11/22/2018 3:40 AM Results for this WRECKING CRANE ENGINE OPERATOR procedure are in the results section. MAGNESIUM LEVEL Routine 11/22/2018 3:40 AM Results for this WRECKING CRANE ENGINE OPERATOR procedure are in the results section. BASIC METABOLIC PANEL Routine 11/22/2018 3:40 AM Results for this WRECKING CRANE ENGINE OPERATOR procedure are in the results section. HC COMPLETE BLD COUNT Routine 11/22/2018 3:00 AM Results for this W/AUTO DIFF WRECKING CRANE ENGINE OPERATOR procedure are in the results section. SURGICAL PATHOLOGY REQUEST Routine 11/21/2018 1:12 PM Results for this WRECKING CRANE ENGINE OPERATOR procedure are in the results section. OR AN ELECTIVE Routine 11/21/2018 8:35 AM ENDOTRACHEAL AIRWAY WRECKING CRANE ENGINE OPERATOR Procedure Note - Yaima Krause CRNA - 11/21/2018 8:35 AM WRECKING CRANE ENGINE OPERATOR Airway Date/Time: 11/21/2018 8:02 AM Performed by: [...] easily. MAGNESIUM LEVEL STAT 11/21/2018 8:25 AM WRECKING CRANE ENGINE OPERATOR IONIZED CALCIUM, ARTERIAL STAT 11/21/2018 8:25 AM WRECKING CRANE ENGINE OPERATOR GLUCOSE LEVEL, SYRINGE STAT 11/21/2018 8:25 AM WRECKING CRANE ENGINE OPERATOR HEMOGLOBIN, SYRINGE STAT 11/21/2018 8:25 AM WRECKING CRANE ENGINE OPERATOR POTASSIUM, SYRINGE STAT 11/21/2018 8:25 AM WRECKING CRANE ENGINE OPERATOR SODIUM LEVEL, SYRINGE STAT 11/21/2018 8:25 AM WRECKING CRANE ENGINE OPERATOR ARTERIAL BLOOD GAS STAT 11/21/2018 8:25 AM WRECKING CRANE ENGINE OPERATOR LACTIC ACID, SYRINGE STAT 11/21/2018 8:25 AM WRECKING CRANE ENGINE OPERATOR ARTERIAL LINE Routine 11/21/2018 8:14 AM WRECKING CRANE ENGINE OPERATOR Procedure Note - Felipe Trejo MD - 11/21/2018 8:14 AM WRECKING CRANE ENGINE OPERATOR Arterial line Performed by: Felipe Trejo MD [...] immediate complications COLECTOMY, PARTIAL, 11/21/2018 7:30 AM WRECKING CRANE ENGINE OPERATOR Cancer of ascending colon LAPAROSCOPIC (HCC) Special Needs EST 2 HRS, TF~1400, REQ 1200 START ECG PRE/POST OP Routine 11/15/2018 1:02 PM Preop testing Results for this WRECKING CRANE ENGINE OPERATOR procedure are in the results section. CARCINOEMBRYONIC ANTIGEN Routine 11/15/2018 12:52 PM Preop testing Results for this (CEA) WRECKING CRANE ENGINE OPERATOR procedure are in the results section. PREPARE RBC Routine 11/15/2018 12:43 PM Results for this WRECKING CRANE ENGINE OPERATOR procedure are in the results section. PREPARE RBC Routine 11/15/2018 12:43 PM Results for this WRECKING CRANE ENGINE OPERATOR procedure are in the results section. TYPE AND SCREEN Routine 11/15/2018 12:43 PM Preop testing Results for this WRECKING CRANE ENGINE OPERATOR procedure are in the results section. ESTIMATED GFR Routine 10/24/2018 1:36 PM Results for this WRECKING CRANE ENGINE OPERATOR procedure are in the results section. COMPREHENSIVE METABOLIC Routine 10/24/2018 1:36 PM Preop testing Results for this PANEL WRECKING CRANE ENGINE OPERATOR procedure are in the results section. CBC HEMOGRAM Routine 10/24/2018 1:36 PM Preop testing Results for this WRECKING CRANE ENGINE OPERATOR procedure are in the results section. after 06/09/2018 Results POC glucose (01/23/2019 11:45 AM CDT)Only the most recent of44 resultswithin the time period is included. Pathologist [facility] POC glucose 107 (H) 65 - 99 mg/dL [facility] Comment: H[facility]PITAL [facility] Notified RN Meter ID: [id number] Wharf Tally Clerk: Eddie Dowd I Specimen Performing Organization Address City/State/Zipcode Phone Number [facility] DEPARTMENT OF PATHOLOGY AND [address] [place] [address] GENOM[address] MEDIC[address] [address] CBC hemogram (01/23/2019 6:20 AM CDT)Only the most recent of2 resultswithin the time period is included. [facility] WBC 6.23 4.50 - 11.00 k/uL [facility] RBC 2.77 (L) 4.40 - 6.00 m/uL [facility] HGB 8.9 (L) 14.0 - 18.0 g/dL [facility] HCT 28.1 (L) 41.0 - 51.0 % [facility] MCV 101.4 (H) 82.0 - 100.0 fL [facility] MCH 32.1 27.0 - 34.0 pg [facility] MCHC 31.7 31.0 - 37.0 g/dL [facility] RDW - SD 66.9 (H) 37.0 - 55.0 fL [facility] MPV 10.7 8.8 - 13.2 fL [facility] Platelet count 156 150 - 400 k/uL [facility] Nucleated RBC 0.00 /100 WBC [facility] Specimen Blood Performing Organization Address City/[facility] Phone Number [facility] DEPARTMENT OF PATHOLOGY AND [address] [place] [address] Estimated GFR (01/22/2019 5:00 AM CDT)Only the most recent of20 resultswithin the time period is included. Estimated GFR 73 mL/min/1.73 [facility] Comment: m2 HOSPITAL CatergoryUnitsInterpretation G1 >=90 Normal or high G2 60-89Mildly decreased [id number] to moderately decreased X9p54-30Sjokblmmxj to severely decreased G4 15-29Severely decreased G5 <15Kidney failure The eGFR was calculated using the Chronic Kidney Disease Epidemiology Collaboration (CKD-EPI) equation. Interpretation is based on recommendations of the National Kidney Foundation-Kidney Disease Outcomes Quality Initiative (NKF-KDOQI) published in 2014. Specimen Plasma specimen Performing Organization Address [facility] Phone Number [facility] DEPARTMENT OF PATHOLOGY AND [address] [place] [phone] Phosphorus level (01/22/2019 5:00 AM CDT)Only the most recent of9 resultswithin the time period is included. Phosphorus 2.3 (L) 2.4 - 4.5 mg/dL [facility] Specimen Plasma specimen Performing Organization Address City/[facility] Phone Number [facility] DEPARTMENT OF PATHOLOGY AND [address] [place] [address] B natriuretic peptide (01/22/2019 5:00 AM CDT)Only the most recent of5 resultswithin the time period is included. BNP 2,025 (H) 0 - 100 pg/mL [facility] Specimen Blood Performing Organization Address [facility] Cent[facility] Phone Number [facility] DEPARTMENT OF PATHOLOGY AND [address] [place] [address] Magnesium level (01/22/2019 5:00 AM CDT)Only the most recent of13 resultswithin the time period is included. Magnesium 1.8 1.6 - 2.4 mg/dL [facility] Specimen Plasma specimen Performing Organization Address City/[facility] Phone Number [facility] DEPARTMENT OF PATHOLOGY AND [address] [place] [phone] Comprehensive metabolic panel (01/22/2019 5:00 AM CDT)Only the most recent of6 resultswithin the time period is included. Sodium 142 135 - 148 [facility] mEq/L [facility] Potassium 4.3 3.5 - 5.0 [facility] mEq/L [facility] Chloride 115 (H) 98 - 112 mEq/L [facility] CO2 18 (L) 24 - 31 mEq/L [facility] Anion gap 9@ANIO 7 - 15 mEq/L [facility] BUN 16 8 - 23 mg/dL [facility] Creatinine 0.98 0.70 - 1.20 [facility] mg/dL HOSPITAL Glucose 78 65 - 99 mg/dL [facility] Calcium 8.1 (L) 8.8 - 10.2 [facility] mg/dL HOSPITAL Protein 4.9 (L) 6.3 - 8.3 g/dL [facility] Comment: HOSPITAL [place] 4.6-7.0 g/dL 1 week 4.4-7.6 g/dL 7 months-1year5.1-7.3 g/dL 1-2 years5.6-7.5 g/dL >3 years6.0-8.0 g/dL 18-150 6.3-8.3 g/dL Albumin 2.1 (L) 3.5 - 5.0 g/dL [facility] A/G ratio 0.8 0.7 - 3.8 [facility] Alkaline phosphatase 93 40 - 129 U/L [facility] AST 16 10 - 50 U/L [facility] ALT 10 5 - 50 U/L [facility] Total bilirubin 0.7 0.0 - 1.2 [facility] mg/dL HOSPITAL Specimen Plasma specimen Performing Organization Address City/[facility] Phone Number [facility] DEPARTMENT OF PATHOLOGY AND [address] [place] [phone] [place] [address] [place] [address] XR Chest 1 Vw Portable (01/21/2019 2:42 PM CDT)Only the most recent of2 resultswithin the time period is included. Specimen Narrative Performed At EXAMINATION:XR CHEST 1 VW PORTABLE [facility] CLINICAL HISTORY:chf COMPARISON:01/10/2019 IMPRESSION: Right PICC line courses to the cavoatrial junction. Mild right hemidiaphragm elevation. Patchy left basilar opacity may reflect pneumonia, mildly improved. No new consolidation. No significant pleural effusion. Stable cardiomediastinal silhouette. [facility]-[id number] Procedure Note Interface, Radiology Results Incoming - 01/21/2019 2:56 PM CDT EXAMINATION: XR CHEST 1 VW PORTABLE CLINICAL HISTORY: chf COMPARISON: 01/10/2019 IMPRESSION: Right PICC line courses to the cavoatrial junction. Mild right hemidiaphragm elevation. Patchy left basilar opacity may reflect pneumonia, mildly improved. No new consolidation. No significant pleural effusion. Stable cardiomediastinal silhouette. [facility]-[id number] Performing Organization Address City/State/Zipcode Phone Number [facility] [address] [place] [address] Us duplex venous upper extremity (01/21/2019 2:27 PM CDT) Specimen Narrative Performed At [facility] Vascular Ultrasound Laboratory Upper Extremity Venous Report [address] [place] [address] Pat.Name:GAUTAM RAMIREZ Pat.ID:[id number] .Date: 01/21/2019 Refer.MD:LUIS ROSEN MD Exam Time: 1:48:00 PMStudy Type:UE Venous Height:73inWeight: 155lb BSA: 1.93 m2 DOBAge:1940,78Y Sex: MALESonogrphr: Janny Cole RVT Pat. Stat.:Inpatient Room:[address] TapeVol: FAUSTINO, CPT - 4: 12032 Echo Event ID:[id number] Order ID:[id number] Reason for Study:Evaluation for DVT. Procedures:Colorflow, Grayscale/2D, [...] Ultrasound Laboratory Upper Extremity Venous Report [address] [place] [address] Pat.Name: GAUTAM RAMIREZ Pat.ID: [id number] .Date: 01/21/2019 Refer.MD: LUIS ROSEN MD Exam Time: 1:48:00 PM Study Type:UE Venous Height: 73in Weight: 155lb BSA: 1.93 m2 Age: 5 1940,78Y Sex: MALE Sonogrphr: Janny Cole RVT Pat. Stat.:Inpatient Room: [address] Tape Vol: JJ, CPT - 4: 66448 Echo Event ID:[id number] Order ID: [id number] Reason for Study:Evaluation for DVT. Procedures:Colorflow, Grayscale/2D, [...] RPVI Performing Organization Address City/State/Zipcode Phone Number [facility] [address] duplex venous lower extremity (01/21/2019 2:03 PM CDT) Specimen Narrative Performed At [facility] Vascular Ultrasound Laboratory Lower Extremity Venous Report [address] [place] [address] Pat.Name:GAUTAM RAMIREZ Pat.ID:[id number] .Date: 01/21/2019 Refer.MD:LUIS ROSEN MD Exam Time: 2:05:00 PMStudy Type:LE Venous Height:73inWeight: 155lb BSA: 1.93 m2 DOBAge:1940,78Y Sex: MALESonogrphr: Janny Cole RVT Pat. Stat.:Inpatient Room:[address] TapeVol: FAUSTINO, CPT - 4: 52743 Echo Event ID:[id number] Order ID:[id number] Reason for Study:Evaluation for DVT, prolonged supine [...] Vascular Ultrasound Laboratory Lower Extremity Venous Report [address] [place] [address] Pat.Name: GAUTAM RAMIREZ Pat.ID: [id number] .Date: 01/21/2019 Refer.MD: LUIS ROSEN MD Exam Time: 2:05:00 PM Study Type:LE Venous Height: 73in Weight: 155lb BSA: 1.93 m2 Age: 5 1940,78Y Sex: MALE Sonogrphr: Janny Cole RVT Pat. Stat.:Inpatient Room: [address] Tape Vol: JJ, CPT - 4: 72032 Echo Event ID:[id number] Order ID: [id number] Reason for Study:Evaluation for DVT, prolonged supine [...] Performing Organization Address City/State/Zipcode Phone Number [facility] [address] [place] [address] Cv laborer petroleum refinery procedure (01/20/2019 9:02 AM CDT) Specimen Narrative Performed At Inpatient procedure ;preop dx ischemic cardiomyopathy , decompensated chf SYNGO procedure : lhc,lva ,selective cor findings: patent proximal; lad stent,mild isr; cfx - calcified plaque zxs33-94% proximal stenosis, 100% stenosis mid rca proximal to rca stent, collaterals to distal julia /pad of rca via lad septals and cfx[progression of rca occlusive cadVs 01/2081 outside heart cath diagran m and lvef worsening vs out echo/doppler form sonya brown 11/2018 report] lvef est 25-29%, lvedp 8; medical rx , afterloadOptimization; cv risk optimization emphasis Performing Organization Address [facility]ode Phone Number [facility] [address] [place] [phone] Partial thromboplastin time, activated (01/20/2019 4:56 AM CDT)Only the most recent of3 resultswithin the time period is included. Pathologist [facility] PTT 38.8 (H) 23.0 - 36.0 [facility] Comment: [facility] PTT therapeutic range for unfractionated heparin is 61.0-112.0 seconds which corresponds to Anti-Xa 0.3-0.7 U/ml. Specimen Blood Performing Organization Address [facility] Phone Number [facility] DEPARTMENT OF PATHOLOGY AND [address] [place] [phone] [address] Prothrombin time with INR (01/20/2019 4:56 AM CDT)Only the most recent of4 resultswithin the time period is included. Pathologist [facility] Prothrombin time 18.2 (H) 11.5 - 14.5 [facility] INR 1.6 [facility] Comment: DRUZE The International Normalized Ratio (INR) is a therapeutic HOSPITAL monitoring tool for patients who are stable on oral anticoagulant therapy. An INR of 2.0-3.0 is suggested for deep vein thrombosis/pulmonary embolism. Specimen Blood Performing Organization Address [facility] Phone Number [facility] DEPARTMENT OF PATHOLOGY AND [address] [place] [phone] [place] [address] CBC with platelet and differential (01/20/2019 4:56 AM CDT)Only the most recent of13 resultswithin the time period is included. Pathologist [facility] WBC 7.13 4.50 - 11.00 [facility] RBC 2.75 (L) 4.40 - 6.00 [facility] m/uL HOSPITAL HGB 8.8 (L) 14.0 - 18.0 [facility] g/dL HOSPITAL HCT 28.7 (L) 41.0 - 51.0 % [facility] MCV 104.4 (H) 82.0 - 100.0 [facility] MCH 32.0 27.0 - 34.0 pg [facility] MCHC 30.7 (L) 31.0 - 37.0 [facility] g/dL [facility] RDW - SD 64.8 (H) 37.0 - 55.0 [facility] MPV 11.1 8.8 - 13.2 [facility] Platelet count 124 (L) 150 - 400 k/uL [facility] Nucleated RBC 0.00 /100 WBC [facility] Neutrophils 70.3 (H) 39.0 - 69.0 % [facility] Lymphocytes 18.7 (L) 25.0 - 45.0 % [facility] Monocytes 6.9 0.0 - 10.0 % [facility] Eosinophils 2.8 0.0 - 5.0 % [facility] Basophils 0.3 0.0 - 1.0 % [facility] Immature granulocytes 1.0Comment: 0.0 - 1.0 % [facility] "Immature [facility] granulocytes" (promyelocytes , myelocytes, metamyelocytes ) Specimen Blood Performing Organization Address City/State/Zipcode Phone Number [facility] DEPARTMENT OF PATHOLOGY AND [address] [place] [address] GENOMIC MEDICINE [address] [address] Basic metabolic panel (01/17/2019 4:00 AM WRECKING CRANE ENGINE OPERATOR)Only the most recent of14 resultswithin the time period is included. Sodium 141 135 - 148 mEq/L [facility] Potassium 4.1 3.5 - 5.0 mEq/L [facility] Chloride 116 (H) 98 - 112 mEq/L [facility] CO2 19 (L) 24 - 31 mEq/L [facility] Anion gap 6@ANIO (L) 7 - 15 mEq/L [facility] BUN 18 8 - 23 mg/dL [facility] Creatinine 0.93 0.70 - 1.20 mg/dL [facility] Glucose 91 65 - 99 mg/dL [facility] Calcium 7.5 (L) 8.8 - 10.2 mg/dL [facility] Specimen Plasma specimen Performing Organization Address City/State/Zipcode Phone Number [facility] DEPARTMENT OF PATHOLOGY AND [address] [place] [address] GENOMIC MEDICINE [facility] [address] [place] [address] Cv echo 2d limited or follow up study (01/16/2019 12:25 PM WRECKING CRANE ENGINE OPERATOR) Specimen Narrative Performed At [facility] Echocardiography Report [address] [facility] [address] [address] Pat.Name:GAUTAM RAMIREZ Pat.ID:[id number] St.Date: 01/16/2019Refer.MD:LUIS ROSEN MD Exam Time: 11:57:00 AM Study Type:Routine Echo Height:72.99in Weight:155lb BSA: 1.93 m2 DOBAge:1940,78Y Sex: MALEBP:99/56 HR:83 bpmSonogrphr: Sweta Turk RDCS Pat. Stat.:Inpatient Room:[place] [address] Study Status:Final Echo Event ID:[id number] Order ID:[id number] Reason for Study:Cardiomyopathies - Initial eval of known or suspected cardiomyopathy (e.g. restrictive, infiltrative, dilated, hypertophic, or genetic cardiomyopathy) Procedures:Portable, 2D Echo,Colorflow Doppler Limited Race:C SUMMARY: LV size is moderately to severely enlarged. Estimated EF is 20-24%. There is severe eccentric LV hypertrophy. Estimated PA systolic pressure is 33-38 mmHg, assuming a mean RAP of 5-10 mmHg. FINDINGS: LV: LV size is zfpcelsv-ta-hmijhosc enlarged. There is severe eccentricLV hypertrophy. LV [...] of 5-10 mmHg. MEASUREMENTS: 2D Parasternal Long [place] LVOT 1.9 cmLA Ds5.1 cm LVIDd6.6 cmIndex3.4 cm/m Ao An2 cm LVIDs5.4 cmAo Rtd 3.7 cm Index1.9 cm/m LV%fs 18.2 % LV Uvhg889.9 g(122-174) IVSd 1.1 cmLVM Eifts342.3 g/m2 LVPWd1.2 cmRWT0.4 LA Sng Plane LA [...] 4332.8 cm/s2 AV Mean G 16.8 mmHgAV LtPo783.2 cm/s2 AV AC106 msec (83-118) AV Area1.1 [...] Radiology Results In - 01/16/2019 4:21 PM WRECKING CRANE ENGINE OPERATOR Echocardiography Report [address] [place] [address] Pat.Name: GAUTAM RAMIREZ Pat.ID: [id number] .Date: 01/16/2019 Refer.MD: LUIS ROSEN MD Exam Time: 11:57:00 AM Study Type:Routine Echo Height: 72.99in Weight: 155lb BSA: 1.93 m2 Age: 5 1940,78Y Sex: MALE BP: 99/56 HR: 83 bpm Sonogrphr: Sweta Turk RDCS Pat. Stat.:Inpatient Room: [place] [address] Study Status:Final Echo Event ID:[id number] Order ID: [id number] Reason for Study:Cardiomyopathies - Initial eval of known or suspected cardiomyopathy (e.g. restrictive, infiltrative, dilated, hypertophic, or genetic cardiomyopathy) Procedures:Portable, 2D Echo,Colorflow Doppler Limited Race: C SUMMARY: LV size is moderately to severely enlarged. Estimated EF is 20-24%. There is severe eccentric LV hypertrophy. Estimated PA systolic pressure is 33-38 mmHg, assuming a mean RAP of 5-10 mmHg. FINDINGS: LV: LV size is mtnhueqy-ig-xvrbbkgs enlarged. There is severe eccentric LV hypertrophy. [...] of 5-10 mmHg. MEASUREMENTS: 2D Parasternal [place] LVOT 1.9 cm LA Ds 5.1 cm [...] PM Ole Hernández M.D. Performing Organization Address City/[facility]/Zipcode Phone Number [facility] [address] [place] [address] Vancomycin level, trough (01/16/2019 4:00 AM WRECKING CRANE ENGINE OPERATOR)Only the most recent of2 resultswithin the time period is included. Pathologist [facility] Vancomycin, 18.2 10.0 - 20.0 [facility] trough Comment: ug/mL HOSPITAL Therapeutic Ranges: Peak 30.0 - 40.0 ug/mL Dyfdgh92.0 - 20.0 ug/mL Specimen Serum Performing Organization Address [facility] Cent[facility] Phone Number [facility] DEPARTMENT OF PATHOLOGY AND [address] [place] [address] [address] [address] ECG 12 lead (01/15/2019 8:20 AM WRECKING CRANE ENGINE OPERATOR)Only the most recent of4 resultswithin the time period is included. [facility] Ventricular rate 99 [facility]USE Atrial rate 99 [facility] MUSE QRSD interval 124 [facility] MUSE QT interval 352 [facility] MUSE QTC interval 451 H MUSE P axis 1 56 [facility] MUSE QRS axis 1 -31 [facility] MUSE T wave axis 124 [facility] EKG impression Normal sinus rhythm-Left axis deviation-Septal infarct (cited on or before 15-NOV-2018)-Inferior infarct (cited on or before 10-JAN-2019)-ST & T wave abnormality, consider lateral ischemia-Abnormal ECG-In automated comparison with ECG of 11-JAN-2019 [facility] MUSE 11:15,-fusion complexes are no longer present-QRS axis shifted left- Nonspecific T wave abnormality, improved in Inferior leads-T wave inversion more evident in Lateral leads- Specimen Narrative Performed At Performing Organization Address City/[facility] Centercome Phone Number [facility] MUSE [address] [place] [address] Aerobic culture (01/14/2019 11:05 AM WRECKING CRANE ENGINE OPERATOR)Only the most recent of2 resultswithin the time period is included. [facility] Aerobic culture No growth after 2 days. [facility] isolate Comment: HOSPITAL Specimen Information Specimen Source: Drainage Specimen Site: Back Specimen Drainage - Back Performing Organization Address [facility] Cent[facility]ode Phone Number [facility] DEPARTMENT OF PATHOLOGY AND [address] [place] [address] Gram stain (01/14/2019 11:05 AM WRECKING CRANE ENGINE OPERATOR)Only the most recent of2 resultswithin the time period is included. Gram stain isolate Moderate WBC's [facility] No organisms seen HOSPITAL Comment: Specimen Information Specimen Source: Drainage Specimen Site: Back Specimen Drainage - Back Performing Organization Address [facility] Phone Number [facility] DEPARTMENT OF PATHOLOGY AND [address] [place] [address] Anaerobic culture (01/14/2019 10:05 AM WRECKING CRANE ENGINE OPERATOR)Only the most recent of2 resultswithin the time period is included. Anaerobic culture No anaerobic organisms isolated. [facility] isolate Comment: HOSPITAL Specimen Information Specimen Source: Drainage Specimen Site: Back Specimen Drainage - Back Performing Organization Address [facility] Phone Number [facility] DEPARTMENT OF PATHOLOGY AND [address] [place] [address] HIV Ag/Ab combination (01/14/2019 4:00 AM WRECKING CRANE ENGINE OPERATOR) HIV Ag/Ab combination Non-reactive Non-reactive [facility] Specimen Blood Performing Organization Address [facility] Phone Number [facility] DEPARTMENT OF PATHOLOGY AND [address] [place] [address] Us carotid duplex (01/13/2019 9:45 AM WRECKING CRANE ENGINE OPERATOR) Specimen Narrative Performed At [facility] Vascular Ultrasound Laboratory Carotid Artery Duplex Report [address] [facility], [facility] 9, [place] [address] For quality officer purposes, the categorization of the degree of the stenosis of this exam is based on criteria described in the IAC carotid stenosis grading white paper( www.intersocietal.org/Vascular) and Keli Ford., Aleks Garay., et al. Carotid artery stenosis: grady-scale and Doppler US diagnosis--Society of Radiologists in Ultrasound Consensus Conference. Radiology. 2002; 229(2):340-6. Pat.Name:GAUTAM RAMIREZ Pat.ID:[id number] .Date: 01/13/2019Refer.MD:LUIS ROSEN MD Exam Time: 9:25:00 AMStudy Type:Carotid DOBAge:1940,78Y Sex: MALE Sonogrphr: Piero Starr, RVSPat. Stat.:Inpatient Room:[facility] TapeVol: [facility] - 4: 10843 Echo Event ID:[id number] Order ID:[id number] Reason for Study:Carotid artery disease; CAD, colon [...] Radiology Results In - 01/13/2019 6:06 PM [facility] Vascular Ultrasound Laboratory Carotid Artery Duplex Report [address] [facility], [facility] [address], [place] [address] For quality officer purposes, the categorization of the degree of the stenosis of this exam is based on criteria described in the IAC carotid stenosis grading white paper( www.intersocietal.org/Vascular) and Keli Ford., Aleks Garay., et al. Carotid artery stenosis: grady-scale and Doppler US diagnosis--Society of Radiologists in Ultrasound Consensus Conference. Radiology. 2003 Nov; 229(2):340-6. Pat.Name: GAUTAM RAMIREZ Pat.ID: [id number] St.Date: 01/13/2019 Refer.MD: LUIS ROSEN MD Exam Time: 9:25:00 AM Study Type:Carotid Age: 4 1940,78Y Sex: MALE Sonogrphr: NGA Holbrook Pat. Stat.:Inpatient Room: [address] Vol: , CPT - 4: [address] Echo Event ID:[id number] Order ID: [id number] Reason for Study:Carotid artery disease; CAD, colon [...] Estrada MD, FACS, RPVI Performing Organization Address [facility] Phone Number [facility] [address] [place] [address] Total iron binding capacity (01/13/2019 3:30 AM WRECKING CRANE ENGINE OPERATOR) [facility] Iron level 39 (L) 59 - 158 ug/dL [facility] Iron binding capacity 81 (L) 200 - 400 ug/dL [facility] % Saturation 48.1 (H) 20.0 - 40.0 % [facility] Specimen Plasma specimen Performing Organization Address [facility] Phone Number [facility] DEPARTMENT OF PATHOLOGY AND [address] [place] [address] Reticulocyte count (01/13/2019 3:30 AM WRECKING CRANE ENGINE OPERATOR) Pathologist [facility] Retic %, auto 0.9 0.5 - 2.1 % [facility] Retic absolute, auto 0.0245 0.0220 - 0.1260 [facility] Specimen Blood Performing Organization Address [facility] Phone Number [facility] DEPARTMENT OF PATHOLOGY AND [address] [place] [address] Folate level (01/13/2019 3:30 AM WRECKING CRANE ENGINE OPERATOR) Folate 4.2 (L) 4.8 - 24.2 ng/mL [facility] Specimen Serum Performing Organization Address [facility] Phone Number [facility] DEPARTMENT OF PATHOLOGY AND [address] [place] [address] Vitamin B12 level (01/13/2019 3:30 AM WRECKING CRANE ENGINE OPERATOR) Pathologist [facility] Vitamin B12 [phone] [facility] Comment: pg/mL HOSPITAL Significant overlap exists between normal and deficiency states. However, most patients with deficiencies will have Serum B12 <200 pg/mL. Specimen Serum Performing Organization Address City/[facility] Phone Number [facility] DEPARTMENT OF PATHOLOGY AND [address] [place] [phone] [place] [address] Cortisol level, AM (01/12/2019 5:50 AM WRECKING CRANE ENGINE OPERATOR) Cortisol, AM 7 6 - 18 ug/dL [facility] Specimen Plasma specimen Performing Organization Address [facility] Phone Number [facility] DEPARTMENT OF PATHOLOGY AND [address] [place] [phone] [place] [address] T3, free (01/12/2019 5:50 AM WRECKING CRANE ENGINE OPERATOR) T3, free 1.1 (L) 2.4 - 4.2 pg/mL [facility] REF LAB Comment: REFERENCE INTERVAL: Triiodothyronine, Free (Free T3) Access complete set of age- and/or gender-specific reference intervals for this test in the [employer] Laboratory Test Directory ([employer]). Performed by [facility], [address] [place] [address] www.[employer], Al Dunbar MD - Lab. Director Specimen Serum Performing Organization [facility] Phone Number [facility] [address] [place] [address] [facility] REF LAB [address] [place] [address] Thyroid stimulating hormone (01/12/2019 5:50 AM WRECKING CRANE ENGINE OPERATOR)Only the most recent of2 resultswithin the time period is included. TSH 4.12 0.27 - 4.20 uIU/mL [facility] Specimen Plasma specimen Performing Organization Address [facility] Phone Number [facility] DEPARTMENT OF PATHOLOGY AND [address] [place] [phone] [place] [address] T4, free (01/12/2019 5:50 AM WRECKING CRANE ENGINE OPERATOR) T4, free 0.8 (L) 0.9 - 1.7 ng/dL [facility] Specimen Plasma specimen Performing Organization Address [facility] Phone Number [facility] DEPARTMENT OF PATHOLOGY AND [address] [place] [address] Thyroperoxidase antibody (01/11/2019 1:10 PM WRECKING CRANE ENGINE OPERATOR) Pathologist [facility] Thyroperoxidase Ab <0.3 0.0 - 9.0 IU/mL [facility] Specimen Serum Performing Organization Address [facility] Phone Number [facility] DEPARTMENT OF PATHOLOGY AND [address] [place] [address] Ionized calcium (01/11/2019 3:30 AM WRECKING CRANE ENGINE OPERATOR)Only the most recent of2 resultswithin the time period is included. Pathologist [facility] pH 7.53 [facility] Ionized calcium 1.11 1.11 - 1.32 mmol/L [facility] Specimen Plasma specimen Performing Organization Address [facility] Phone Number [facility] DEPARTMENT OF PATHOLOGY AND [address] [place] [address] Hepatic function panel (01/11/2019 3:30 AM WRECKING CRANE ENGINE OPERATOR)Only the most recent of2 resultswithin the time period is included. Pathologist [facility] Albumin 1.5 (L) 3.5 - 5.0 g/dL [facility] Total bilirubin 0.8 0.0 - 1.2 [facility] mg/dL [facility] Bilirubin direct 0.4 (H) 0.0 - 0.3 [facility] mg/dL [facility] Alkaline phosphatase 163 (H) 40 - 129 U/L [facility] Protein 5.1 (L) 6.3 - 8.3 g/dL [facility] Comment: HOSPITAL [place] 4.6-7.0 g/dL 1 week 4.4-7.6 g/dL 7 months-1year5.1-7.3 g/dL 1-2 years5.6-7.5 g/dL >3 years6.0-8.0 g/dL 18-150 6.3-8.3 g/dL ALT 35 5 - 50 U/L [facility] AST 25 10 - 50 U/L [facility] Specimen Plasma specimen Performing Organization Address City/[facility] Phone Number [facility] DEPARTMENT OF PATHOLOGY AND [address] [place] [address] Hemoglobin & hematocrit (01/10/2019 8:10 PM WRECKING CRANE ENGINE OPERATOR)Only the most recent of4 resultswithin the time period is included. [facility] HGB 9.7 (L) 14.0 - 18.0 g/dL [facility] HCT 30.9 (L) 41.0 - 51.0 % [facility] Specimen Blood Performing Organization Address City/[facility] Phone Number [facility] DEPARTMENT OF PATHOLOGY AND [address] [place] [address] Troponin (01/10/2019 8:10 PM WRECKING CRANE ENGINE OPERATOR)Only the most recent of3 resultswithin the time period is included. [facility] Troponin <0.30 0.00 - 0.30 [facility] Comment: ng/mL HOSPITAL 0.30 - 1.49 ng/mlMay indicate increased risk of acute coronary syndrome. >=1.5 ng/mlConsistent with acute myocardial infarction. The diagnostic value of a single normal or non-diagnostic result is questionable.Serial samples at 2-6 hour intervals are required to rule out acute myocardial injury. Specimen Plasma specimen Performing Organization Address [facility] Phone Number [facility] DEPARTMENT OF PATHOLOGY AND [address] [place] [address] Hepatitis acute panel (01/10/2019 5:16 PM WRECKING CRANE ENGINE OPERATOR) Pathologist [facility] Hepatitis A IgM Non-reactive Non-reactive [facility] Hepatitis B core Non-reactive Non-reactive [facility] Hepatitis B surface Non-reactive Non-reactive [facility] Hepatitis C Ab Non-reactive Non-reactive [facility] Specimen Serum Performing Organization Address City/[facility] Phone Number [facility] DEPARTMENT OF PATHOLOGY AND [address] [place] [address] T4 (01/10/2019 5:16 PM WRECKING CRANE ENGINE OPERATOR) T4 3.1 (L) 4.5 - 11.7 ug/dL [facility] Specimen Plasma specimen Performing Organization Address City/[facility] Phone Number [facility] DEPARTMENT OF PATHOLOGY AND [address] [place] [address] Lactic acid level, SEPSIS - Now and repeat 2x every 3 hours (01/10/2019 12:15 PM WRECKING CRANE ENGINE OPERATOR)Only the most recent of3 resultswithin the time period is included. Lactic acid 1.3 0.5 - 2.2 mmol/L [facility] Specimen Blood Performing Organization Address [facility] Phone Number [facility] DEPARTMENT OF PATHOLOGY AND [address] [place] [address] Sodium level, urine, random (01/10/2019 12:12 PM WRECKING CRANE ENGINE OPERATOR) Sodium, urine, random 81 mEq/L [facility] Specimen Urine Performing Organization Address [facility] Phone Number [facility] DEPARTMENT OF PATHOLOGY AND [address] [place] [phone] [place] [address] Creatinine level, urine, random (01/10/2019 12:12 PM WRECKING CRANE ENGINE OPERATOR) Creatinine, urine, 98 mg/dL [facility] Specimen Urine Performing Organization Address [facility] Phone Number [facility] DEPARTMENT OF PATHOLOGY AND [address] [place] [address] Head Wo Contrast (01/10/2019 11:23 AM WRECKING CRANE ENGINE OPERATOR) Specimen Narrative Performed At EXAMINATION:CT HEAD WO [...] cells, correlate with physical exam for otomastoiditis. [id number] Procedure Note Interface, Radiology Results Incoming - 01/10/2019 11:35 AM WRECKING CRANE ENGINE OPERATOR EXAMINATION: CT HEAD WO CONTRAST CLINICAL HISTORY: [...] cells, correlate with physical exam for otomastoiditis. [id number] Performing Organization Address City/State/Zipcode Phone Number [facility] [address] [place] [address] CT Abdomen Pelvis Wo Contrast (01/10/2019 11:23 AM WRECKING CRANE ENGINE OPERATOR) Specimen Narrative Performed At EXAMINATION:CT ABDOMEN PELVIS [...] to suggest abscess. Bilateral lower lobe pneumonia. [id number] Procedure Note Interface, Radiology Results Incoming - 01/10/2019 12:05 PM WRECKING CRANE ENGINE OPERATOR EXAMINATION: CT ABDOMEN PELVIS WO CONTRAST CLINICAL [...] to suggest abscess. Bilateral lower lobe pneumonia. [facility]-[id number] Performing Organization Address [facility] Phone Number [facility] [address] [place] [address] XR Picc Chest Portable (01/10/2019 11:00 AM WRECKING CRANE ENGINE OPERATOR) Specimen Narrative Performed At EXAMINATION:XR PICC CHEST PORTABLE [facility] CLINICAL HISTORY:N91.2 Amenorrheaunspecified, Multiple IV meds COMPARISON:Chest x-ray 01/10/2019 IMPRESSION: Single frontal view reveals interval placement of a right-sided PICC line with tip overlying the SVC. The remainder of the examination is unchanged. [facility]-[id number] Procedure Note Interface, Radiology Results Incoming - 01/10/2019 11:04 AM WRECKING CRANE ENGINE OPERATOR EXAMINATION: XR PICC CHEST PORTABLE CLINICAL HISTORY: N91.2 Amenorrhea unspecified, Multiple IV meds COMPARISON: Chest x-ray 01/10/2019 IMPRESSION: Single frontal view reveals interval placement of a right-sided PICC line with tip overlying the SVC. The remainder of the examination is unchanged. [facility]-[id number] Performing Organization Address [facility] Phone Number [facility] [address] [place] [address] PICC insertion (01/10/2019 9:58 AM WRECKING CRANE ENGINE OPERATOR) Narrative Performed At Jenifer Woodson 01/10/2019 10:04 AM PICC insertion Date/Time: 01/10/2019 9:58 AM Performed by: Don Riojas RN Authorized by: Nayely Flood MD Consent: Consent obtained:Verbal Consent given by:Patient Risks discussed: arterial puncture, incorrect placement, nerve damage, bleeding, infection, superficial thrombus and deep vein thrombus Alternatives discussed:No treatment and delayed treatment [place] protocol: Procedure explained and questions answered to [...] LDA): Patient position:Flat Vessel Size (mm):4 Indication:Known mcc IV therapy Location:Right basilic Device Type:Non-valved Catheter size:5 Fr PICC Characteristics: Catheter Brand:Angiodynamic PowerPICC External Catheter Length (cm):0 Internal Catheter Length (cm):41 Total Catheter Length (cm):41 Catheter Lot Number:[id number] Catheter Expiration Date:09/11/2020 Procedure Details: Landmarks identified: [...] immediate complications Urine culture (01/10/2019 7:31 AM WRECKING CRANE ENGINE OPERATOR) Urine culture SEE COMMENTComment: [facility] Bacteriuria screen HOSPITAL negative. Specimen Performing Organization Address [facility] Phone Number [facility] DEPARTMENT OF PATHOLOGY AND [address] [place], [place] [phone] [place] [phone] Urinalysis screen and microscopy, with reflex to culture (01/10/2019 7:24 AM WRECKING CRANE ENGINE OPERATOR) Specimen site Catheterized [facility] Color, UA Yellow [facility] Appearance, UA Clear [facility] Specific gravity, UA 1.054 (H) 1.001 - 1.035 [facility] pH, UA 5.0 5.0 - 8.5 [facility] Protein, UA Negative Negative [facility] Glucose, UA Negative Negative [facility] Ketones, UA Negative Negative [facility] Bilirubin, UA Negative Negative [facility] Blood, UA Negative Negative [facility] Nitrite, UA Negative Negative [facility] Urobilinogen, UA <2.0 <2.0 [facility] Leukocyte esterase, Negative Negative [facility] Epithelial cells, UA 1 /HPF [facility] WBC, UA 2 (H) 0 - 1 /HPF [facility] RBC, UA 5 0 - 5 /HPF [facility] Bacteria, UA Few None seen [facility] Yeast, UA None seen [facility] Yeast with None seen [facility] pseudohyphae, HOSPITAL Specimen Urine Performing Organization Address [facility] Phone Number [facility] DEPARTMENT OF PATHOLOGY AND [address] [place], [place] [phone] [place] [address] XR Abdomen 1 Vw Portable (01/10/2019 6:53 AM WRECKING CRANE ENGINE OPERATOR) Specimen Narrative Performed At EXAMINATION:XR ABDOMEN 1 VW PORTABLE [facility] CLINICAL HISTORY:ICU ptrecent abdominal surgery COMPARISON:None. IMPRESSION: Water-soluble contrast material is noted in the stomach and proximal small bowel which is not dilated.There is an ostomy in the right lower quadrant.There is no significant colonic material identified.There is contrast in the urinary bladder. [id number] Procedure Note Interface, Radiology Results Incoming - 01/10/2019 7:46 AM WRECKING CRANE ENGINE OPERATOR EXAMINATION: XR ABDOMEN 1 VW PORTABLE CLINICAL HISTORY: ICU pt recent abdominal surgery COMPARISON: None. IMPRESSION: Water-soluble contrast material is noted in the stomach and proximal small bowel which is not dilated. There is an ostomy in the right lower quadrant. There is no significant colonic material identified. There is contrast in the urinary bladder. [facility]-[id number] Performing Organization Address City/State/Zipcode Phone Number [facility] [address] [place] [address] Echocardiogram complete w contrast and 3D if needed (01/10/2019 6:28 AM WRECKING CRANE ENGINE OPERATOR) Specimen Narrative Performed At [facility] Echocardiography Report [address] [facility], [address], [place] [address] Pat.Name:GAUTAM RAMIREZ Pat.ID:[id number] St.Date: 01/10/2019Refer.MD:NAYELY FLOOD MD Exam Time: 5:52:00 AMStudy Type:Routine Echo Height:72.99in Weight:154.66lb BSA: 1.93 m2 DOBAge:1940,78Y Sex: MALEBP:120/58 HR:83 bpmSonogrphr: IRVING Mendoza Pat. Stat.:Inpatient Room:[place] [address] Study Status:Final Echo Event ID:[id number] Order ID:[id number] Reason for Study:AFIB, elevated BNP Procedures:2D Echo, Colorflow Doppler, Strain, Portable, Stat Race: SUMMARY: LV EF is severely depressed. Inferoposterior [place] Tethered posterior mitral leaflet with Moderate mitral regurgitation. FINDINGS: LV: LV size is rtnymuxj-ze-ngyesvhc enlarged. LV EF is severely depressed.Estimated EF [...] of 5-10 mmHg. MEASUREMENTS: 2D Parasternal Long [place] Ds4.5 cmLVPWd1.1 cm LVOT 2.3 cmAo An2.3 cm LVIDd6.5 cmIndex3.3 cm/m Ao Rtd 3.6 cm Index1.9 cm/m LVIDs5.3 cm LV Jlnd918 g(122-174) LV%fs 18.5 % LVM Ooemb203.8 g/m2 IVSd 1.1 cmRWT0.3 LA Sng Plane [...] TVI47.6 cm AV Mean G 13.8 mmHgAVpkAcRt 87134.1 cm/s2 AV AC100 msec (83-118) AV Area-Cont. Eq. LVOT Area3.8 cm2 AV TVI47.6 cm LVOT TVI15.7 cmAV Area1.3 cm2(3-5) AV SV 59.8 ml For Flow/Valve Assess FaVsw584.5 cm/sTVI 48.7 cm MnPG13.5 mmHg WALL MOTION: [...] Radiology Results In - 01/10/2019 10:39 AM WRECKING CRANE ENGINE OPERATOR Echocardiography Report [id number]Name: GAUTAM RAMIREZ [facility].ID: [id number] .Date: 01/10/2019 Refer.MD: NAYELY FLOOD MD Exam Time: 5:52:00 AM Study Type:Routine Echo Height: 72.99in Weight: 154.66lb BSA: 1.93 m2 Age: 4 1940,78Y Sex: MALE BP: 120/58 HR: 83 bpm Sonogrphr: IRVING Mendoza Pat. Stat.:Inpatient Room: [place] [address] Study Status:Final Echo Event ID:[id number] Order ID: [id number] Reason for Study:AFIB, elevated BNP Procedures:2D Echo, Colorflow Doppler, Strain, Portable, Stat Race: SUMMARY: LV EF is severely depressed. Inferoposterior [place] Tethered posterior mitral leaflet with Moderate mitral regurgitation. FINDINGS: LV: LV size is etweihda-jl-bawqylaq enlarged. LV EF is severely depressed. Estimated [...] of 5-10 mmHg. MEASUREMENTS: 2D Parasternal Long [place] Ds 4.5 cm LVPWd 1.1 cm [...] cm AV Mean G 13.8 mmHg AVpkAcRt 09278.1 cm/s2 AV AC 100 msec (83-118) AV [...] Organization Address City/State/Zipcode Phone Number [facility] [address] [place] [address] Respiratory pathogen panel (01/10/2019 3:45 AM WRECKING CRANE ENGINE OPERATOR) [facility] Respiratory Negative for all pathogens tested: KING[place] pathogen panel Negative for Adenovirus DRUZE Negative for Coronavirus HKU1 [facility] Negative for Coronavirus NL63 Negative for Coronavirus [...] Specimen Nares - Right Performing Organization Address City/[facility]/Zipcode Phone Number [facility] DEPARTMENT OF PATHOLOGY AND [address] [place] [address] Gastrointestinal panel (01/10/2019 3:45 AM WRECKING CRANE ENGINE OPERATOR) [facility] Gastrointestinal panel Positive for Giardia intestinalis (lamblia) [place] DRUZE Negative for all other pathogens tested: [...] Specimen Stool - Nonpreserved Performing Organization Address City/[facility]/Zipcode Phone Number [facility] DEPARTMENT OF PATHOLOGY AND [address] [place], [place] [phone] Occult blood, stool (01/10/2019 3:45 AM WRECKING CRANE ENGINE OPERATOR) Pathologist [facility] Occult blood, Positive for Occult blood (A) [facility] stool Comment: HOSPITAL Specimen Information Specimen Source: Stool Specimen Site: Nonpreserved Specimen Stool - Nonpreserved Performing Organization Address City/[facility] Phone Number [facility] DEPARTMENT OF PATHOLOGY AND [address] [place] [phone] Blood culture, aerobic & anaerobic (01/10/2019 3:45 AM WRECKING CRANE ENGINE OPERATOR) [facility] Blood culture No growth after 5 days of incubation. [facility] isolate Comment: HOSPITAL Specimen Information Specimen Source: Blood Specimen Site: Forearm, left Specimen Blood - Forearm, left Performing Organization Address [facility] Phone Number [facility] DEPARTMENT OF PATHOLOGY AND [address] [place] [address] Fibrinogen (01/10/2019 3:45 AM WRECKING CRANE ENGINE OPERATOR) [facility] Fibrinogen 284 200 - 450 mg/dL [facility] Specimen Blood Performing Organization Address [facility] Phone Number [facility] DEPARTMENT OF PATHOLOGY AND [address] [place] [address] D-dimer (01/10/2019 3:45 AM WRECKING CRANE ENGINE OPERATOR) [facility] D-dimer 6.04 (H) 0.00 - 0.40 [facility] Comment: ug/mL [facility] Units are ug/ml [...] and malignancies. Specimen Blood Performing Organization Address City/[facility] Phone Number [facility] DEPARTMENT OF PATHOLOGY AND [address] [place] [address] Type and screen (01/10/2019 3:45 AM WRECKING CRANE ENGINE OPERATOR)Only the most recent of2 resultswithin the time period is included. ABO grouping A [facility] Rh type POS [facility] Antibody screen (gel) NEG [facility] Specimen Blood Performing Organization Address City/[facility] Phone Number [facility] DEPARTMENT OF PATHOLOGY AND [address] [place] [phone] Lipase level (01/10/2019 3:45 AM WRECKING CRANE ENGINE OPERATOR) Lipase 42 13 - 60 U/L [facility] Specimen Plasma specimen Performing Organization Address [facility] Phone Number [facility] DEPARTMENT OF PATHOLOGY AND [address] [place] [phone] Lactic acid level (01/10/2019 3:45 AM WRECKING CRANE ENGINE OPERATOR) Lactic acid 2.5 (H) 0.5 - 2.2 mmol/L [facility] Specimen Plasma specimen Performing Organization Address [facility] Phone Number [facility] DEPARTMENT OF PATHOLOGY AND [address] [place] [phone] Creatine kinase, total (CPK) (01/10/2019 3:45 AM WRECKING CRANE ENGINE OPERATOR) Creatine kinase 23 (L) 39 - 308 U/L [facility] Specimen Plasma specimen Performing Organization Address City/[facility] Phone Number [facility] DEPARTMENT OF PATHOLOGY AND [address] [place] [phone] Amylase level (01/10/2019 3:45 AM WRECKING CRANE ENGINE OPERATOR) Amylase 25 (L) 28 - 100 U/L [facility] Specimen Plasma specimen Performing Organization Address [facility] Phone Number [facility] DEPARTMENT OF PATHOLOGY AND [address] [place] [phone] Surgical pathology request (11/22/2018 5:30 PM WRECKING CRANE ENGINE OPERATOR)Only the most recent of2 resultswithin the time period is included. [facility] DEPARTMENT OF PATHOLOGY AND GENOMIC MEDICINE Surgical pathology See link below [facility] DEPARTMENT OF report for PDF Lab PATHOLOGY AND Report GENOMIC MEDICINE Result status This is Final [facility] DEPARTMENT OF Report for PATHOLOGY AND [id number] GENOMIC MEDICINE Specimen Performing Organization Address City/[facility] Phone Number [facility] DEPARTMENT OF PATHOLOGY AND [address] [place] [address] GENOMIC MEDICINE Transfuse RBC (11/22/2018 5:20 PM WRECKING CRANE ENGINE OPERATOR)Only the most recent of2 resultswithin the time period is included.Sodium level, syringe (11/21/2018 8:25 AM WRECKING CRANE ENGINE OPERATOR) Sodium, syringe 144 135 - 148 mEq/L [facility] Specimen Blood Performing Organization Address City/[facility] Phone Number [facility] DEPARTMENT OF PATHOLOGY AND [address] [place] [phone] [place] [phone] Potassium, syringe (11/21/2018 8:25 AM WRECKING CRANE ENGINE OPERATOR) Potassium, syringe 3.3 (L) 3.5 - 5.0 mEq/L [facility] Specimen Blood Performing Organization Address [facility] Phone Number [facility] DEPARTMENT OF PATHOLOGY AND [address] [place] [phone] Lactic acid, syringe (11/21/2018 8:25 AM WRECKING CRANE ENGINE OPERATOR) Lactic acid, syringe 0.9 0.5 - 2.2 mmol/L [facility] Specimen Blood Performing Organization Address City/[facility]/Zipcode Phone Number [facility] DEPARTMENT OF PATHOLOGY AND [address] [place] [phone] Ionized calcium, arterial (11/21/2018 8:25 AM WRECKING CRANE ENGINE OPERATOR) Ionized calcium, 1.05 (L) 1.11 - 1.32 [facility] arterial mmol/L [facility] Specimen Blood Performing Organization Address City/[facility] Phone Number [facility] DEPARTMENT OF PATHOLOGY AND [address] [place] [address] [place] [phone] Hemoglobin, syringe (11/21/2018 8:25 AM WRECKING CRANE ENGINE OPERATOR) Hemoglobin, syringe 11.7 (L) 14.0 - 18.0 g/dL [facility] Specimen Blood Performing Organization Address City/[facility] Phone Number [facility] DEPARTMENT OF PATHOLOGY AND [address] [place] [phone] [address] Glucose level, syringe (11/21/2018 8:25 AM WRECKING CRANE ENGINE OPERATOR) Glucose, syringe 85 65 - 99 mg/dL [facility] Specimen Blood Performing Organization Address City/[facility] Phone Number [facility] DEPARTMENT OF PATHOLOGY AND [address] [place] [phone] Arterial blood gas (11/21/2018 8:25 AM WRECKING CRANE ENGINE OPERATOR) pH, arterial 7.37 7.35 - 7.45 [facility] pCO2, arterial 36 35 - 45 mmHg [facility] pO2, arterial 196 (H) 80 - 90 mmHg [facility] Bicarbonate, 20.4 (L) 21.0 - 28.0 [facility] mmol/L [facility] Base excess, -4 (L) -2 - 2 mEq/L [facility] O2 saturation, 99 95 - 100 % [facility] Specimen Blood Performing Organization Address City/[facility] Phone Number [facility] DEPARTMENT OF PATHOLOGY AND [address] [place] [phone] ECG Pre/Post Op (11/15/2018 1:02 PM WRECKING CRANE ENGINE OPERATOR) Ventricular rate 68 [facility]USE Atrial rate [...] At Performing Organization Address City/State/Zipcode Phone Number [facility] MUSE [address] [place] [address] Carcinoembryonic antigen (CEA) (11/15/2018 12:52 PM WRECKING CRANE ENGINE OPERATOR) CEA 2.8 0.0 - 3.8 [facility] Comment: ng/mL HOSPITAL Reference range for heavy smokers:0.0 - 5.5 ng/mL The JENNY Kathie 8000 CEA immunoassay was used. Results obtained with different assay methods or kits should not be used interchangeably and may be different. Specimen Serum Performing Organization Address City/State/Zipcode Phone Number [facility] DEPARTMENT OF PATHOLOGY AND [address] [place] [phone] [address] Prepare RBC (11/15/2018 12:43 PM WRECKING CRANE ENGINE OPERATOR)Only the most recent of2 resultswithin the time period is included. Product name Red Blood Cells [facility] -[facility], [facility] Unit number [id number] [facility] Product code [id number] [facility] Dispense status Transfused [facility] Blood expiration [facility] Blood type code 6200 [facility] Blood type A POSITIVE [facility] Product name Red Blood Cells [facility], Leukored [facility] Unit number [id number] [facility] Product code [id number] [facility] Dispense status Returned to BB not [facility] Blood expiration [facility] Blood type code 6200 [facility] Blood type A POSITIVE [facility] Specimen Performing Organization Address City/State/Zipcode Phone Number [facility] DEPARTMENT OF PATHOLOGY AND [address] [place] [phone] [address] after 06/09/2018 ([place]) [place] [address] Advance Directives Patient has advance care planning documents, and code status on file. For more information, please contact:El [address] [place] [address] Code Status Date Activated Date Inactivated Comments Full Code 11/21/2018 1:01 PM 11/26/2018 9:19 PM Code Status decision reached by: Patient
[2019-06-10] MEDS ORDERED: ONDANSETRON 4 MG/2 ML VIAL ONE (12:09)
[2019-06-10] MEDS ORDERED: MORPHINE 2 MG/ML SYR ONE (12:09)
--- NOTE | 2019-06-10 13:13 | RAD REPORT ---
EXAM DESCRIPTION: RAD - Pelvis - 06/10/2019 1:01 pm CLINICAL HISTORY: BLUNT TRAUMA Fall, pain COMPARISON: None FINDINGS: AP pelvis and right hip - multiple projections Diffuse osteopenia is seen. Proximal right femur fracture is seen, along the medial base of the femor al neck region. No dislocation.
--- NOTE | 2019-06-10 13:36 | ER ---
Nurse's Notes [facility] Name: Gautam Ramirez Jr Age: 79 yrs Sex: Male : 1940 Arrival Date: 06/10/2019 Time: 11:37 Bed 2 Private MD: Diagnosis: Fracture of unspecified part of neck of right femur Presentation: 06/10 11:38 Presenting complaint: EMS states: pt fell from a standing position after tripping over sg feet, pt reports pain in the right hip. denies head injury or LOC, reports having pain with movement in the right hip. Care prior to arrival: None. Mechanism of Injury: Fall from standing position. Trauma event details: Injury occurred in the [facility], Injury occurred: at home. Injury occurred: June 10, 2019. 11:38 Acuity: BENIGNO 3 sg 11:38 Method Of Arrival: EMS: [facility] 13:07 Transition of care: patient was not received from another setting of care. Onset of tw2 symptoms was June 10, 2019. Risk Assessment: Do you want to hurt yourself or someone else? Patient reports no desire to harm self or others. Initial Sepsis Screen: Does the patient meet any 2 criteria? No. Patient's initial sepsis screen is negative. Does the patient have a suspected source of infection? Yes:. Trauma Activation: Alert Physician: ED Physician; Name: ; Notified At: ; Arrived At: Physician: General Surgeon; Name: ; Notified At: ; Arrived At: Physician: Radiology; Name: ; Notified At: ; Arrived At: Physician: Respiratory; Name: ; Notified At: ; Arrived At: Physician: Lab; Name: ; Notified At: ; Arrived At: Historical: - Allergies: 11:40 No Known Allergies; sg - Home Meds: 13:28 allopurinol 300 mg Oral tab 1 tab once daily [Active]; levothyroxine 50 mcg tab 1 tab sg once daily [Active]; atorvastatin 40 mg Oral tab 1 tab once daily [Active]; isosorbide mononitrate 30 mg Oral Tb24 1 tab once daily [Active]; atorvastatin 40 mg Oral tab 1 tab once daily [Active]; lisinopril 2.5 mg Oral tab 1 tab once daily [Active]; zinc sulfate 220 (50) mg Oral cap daily [Active]; - PMHx: 11:40 CAD; Hyperlipidemia; Hypertension; sg - PSHx: 11:40 Angioplasty; colon surgery; stents; sg - Immunization history: Last tetanus immunization: unknown. - Social history:: Smoking status: . - Family history:: not pertinent. - Ebola Screening: : Patient denies travel to an Ebola-affected area in the 21 days before illness onset. - Hospitalizations: : No recent hospitalization is reported. Screenin:44 Abuse screen: Denies threats or abuse. Denies injuries from another. Tuberculosis sg screening: No symptoms or risk factors identified. 13:07 Nutritional screening: No deficits noted. Fall Risk Secondary diagnosis (15 points) tw2 impaired mobility. Primary Survey: 11:41 NO uncontrolled hemorrhage observed. A: The patient is alert. Airway: patent, No sg supplemental oxygen in use on arrival. Oral cavity: clear, Trachea midline. Breathing/Chest: Respiratory pattern: regular, Respiratory effort: spontaneous, unlabored, Breath sounds: clear, Chest inspection: symmetrical rise and fall of the chest. Circulation: Heart tones present. Pulses: palpable right radial artery, right posterior tibial artery, left radial artery and left posterior tibial artery. Skin color: pink, Skin temperature: warm. Disability Alert. Exposure/Environment: All clothing and personal items were removed. Forensic evidence collection is not deemed to be indicated at this time. Items placed in patient belonging bag. There is no evidence of uncontrolled external bleeding. Obvious injury(ies) are noted at this time: right hip pain post fall A warming method has been applied: A warm blanket has been provided to the patient. Secondary Survey: 11:43 HEENT: No deficits noted. Gastrointestinal: Abdomen is flat, non-distended, Other sg ostomy noted with appliance Bowel sounds present in all quadrants. : No signs and/or symptoms were reported regarding the genitourinary system. Musculoskeletal: Circulation, motion, and sensation intact. Range of motion: limited in right hip Swelling absent. Assessment: 11:40 General: Appears in no apparent distress. well groomed, well developed, well nourished, sg Behavior is calm, cooperative, appropriate for age. Pain: Complains of pain in right hip Quality of pain is described as aching, sore. Neuro: Level of Consciousness is awake, alert, obeys commands, Oriented to person, place, time, Senior Information Systems Architect are equal bilaterally Moves all extremities. Full function Speech is normal, Facial symmetry appears normal. Cardiovascular: Capillary refill is brisk in bilateral fingers Patient's skin is warm and dry. Chest pain is denied. Respiratory: Airway is patent Respiratory effort is even, unlabored, Respiratory pattern is regular, symmetrical. GI: Abdomen is flat, non-distended, Reports normal bowel habits, tolerance of fluids, tolerance of food. : No signs and/or symptoms were reported regarding the genitourinary system. EENT: No signs and/or symptoms were reported regarding the EENT system. Derm: Skin is pink, warm \T\ dry. Musculoskeletal: Circulation, motion, and sensation intact. Range of motion: limited in right hip Swelling absent. 12:00 Reassessment: pt to go to Xray after pain medication has taken affect. sg 12:40 Reassessment: Patient appears in no apparent distress at this time. Patient and/or sg family updated on plan of care and expected duration. Pain level reassessed. Patient is alert, oriented x 3, equal unlabored respirations, skin warm/dry/pink. 13:00 Reassessment: pt is in imaging at this time, unavailable for vs. tw2 13:04 Reassessment: Patient appears in no apparent distress at this time. No changes from tw2 previously documented assessment. Patient and/or family updated on plan of care and expected duration. Pain level reassessed. pt back from imaging at this time. 13:24 Reassessment: Patient appears in no apparent distress at this time. Patient and/or sg family updated on plan of care and expected duration. Pain level reassessed. Patient is alert, oriented x 3, equal unlabored respirations, skin warm/dry/pink. awaiting radiology results at this time, will continue to monitor. 13:40 Reassessment: Patient appears in no apparent distress at this time. Patient and/or sg family updated on plan of care and expected duration. Pain level reassessed. awaiting dispo orders at this time, will continue to monitor. 14:13 Reassessment: 02 saturation noted to be 88 percent on room air after Demerol sg administration, pt placed to 4 lpm NC with o2 saturation of 96%. 15:03 Reassessment: Patient appears in no apparent distress at this time. Patient and/or sg family updated on plan of care and expected duration. Pain level reassessed. pt updated on bed assignment, will be going to bed 202 at this time. Vital Signs: 11:40 BP 108 / 91; Pulse 90; Resp 17; Temp 97.2; Pulse Ox 98% on R/A; sg 12:40 BP 110 / 70; Pulse 90; Resp 16; Pulse Ox 92% on R/A; sg 13:04 BP 102 / 75; Pulse 91; Resp 17; Pulse Ox 97% on R/A; tw2 13:40 BP 112 / 72; Pulse 93; Resp 16; Pulse Ox 96% on 4 lpm NC; Pain 7/10; sg 14:59 BP 99 / 63; Pulse 89; Resp 17 S; Pulse Ox 100% ; sg [place] Coma Score: 11:40 Eye Response: spontaneous(4). Verbal Response: oriented(5). Motor Response: obeys sg commands(6). Total: 15. Trauma Score (Adult): 11:40 Eye Response: spontaneous(1); Verbal Response: oriented(1); Motor Response: obeys sg commands(2); Systolic BP: > 89 mm Hg(4); Respiratory Rate: 10 to 29 per min(4); Vicente Score: 15; Trauma Score: 12 ED Course: 11:37 Patient arrived in ED. tw2 11:37 Arm band placed on. tw2 11:38 Eliezer Amaya, RN is Primary Nurse. sg 11:38 Demarco Arreola MD is Attending Physician. kdr 11:38 Attending Physician role handed off by Demarco Arreola MD rn 11:38 Arsen Riley MD is Attending Physician. rn 11:38 Patient maintains SpO2 saturation greater than 95% on room air. Thermoregulation: warm tw2 blanket given to patient. 11:40 Triage completed. sg 11:41 Patient has correct armband on for positive identification. sg 11:50 Inserted saline lock: 22 gauge in left antecubital area, using aseptic technique. Blood sg collected. 11:52 Radiology exam delayed due to PT REQUESTED PAIN MEDS FOR X RAY. jb2 12:51 X-ray completed. Patient tolerated procedure well. Patient moved back from radiology. sw 12:54 XRAY Pelvis In Process Unspecified. EDMS 12:54 XRAY Hip RIGHT 2 view In Process Unspecified. EDMS 13:35 Nancy Macias MD is Hospitalizing Provider. rn 14:10 EKG done, by painting technician. reviewed by Arsen Riley MD. 3 15:00 No provider procedures requiring assistance completed. Patient admitted, IV remains in sg place. intact, No redness/swelling at site. Administered Medications: 11:59 Drug: morphine 2 mg Route: IVP; Site: left antecubital; sg 13:36 Follow up: Response: No adverse reaction; Pain is unchanged, physician notified sg 11:59 Drug: Zofran 4 mg Route: IVP; Site: left antecubital; sg 13:36 Follow up: Response: No adverse reaction sg 13:59 Drug: Demerol 25 mg Route: IVP; Site: left antecubital; sg Intake: 11:40 PO: 0ml; Total: 0ml. sg 15:00 independent, in a urinal iw Output: 15:00 Urine: 200ml (Voided); Total: 200ml. iw 15:00 independent, in a urinal iw Outcome: 13:35 Decision to Hospitalize by Provider. rn 15:00 Admitted to Med/surg accompanied by tech, via stretcher, room 202, with oxygen, with sg chart, Report called to HERO Thomas 15:00 Condition: stable 15:00 Instructed on the need for admit, safety practices, Demonstrated understanding of instructions. 15:00 Patient's length of stay in the Emergency Department was greater than 2 hours. awaiting sg admission to floor at this timePatient's length of stay extended due to 15:06 Patient left the ED. rv Signatures: Dispatcher [employer] EDMS Eliezer Amaya RN RN sg Rittger, Kevin, MD MD kdr Buechter, Jesse jb2 Williams, Irene, RN RN iw Nieto, Roman, MD MD rn Warren, Shannon sw Wise, Tara, RN RN 2 Letty Harper 3 Rudolph Brunner RN RN rv
--- NOTE | 2019-06-10 13:36 | EDPHYS ---
Physician Documentation [facility] Name: Gautam Ramirez Jr Age: 79 yrs Sex: Male : 1940 Arrival Date: 06/10/2019 Time: 11:37 Bed 2 Private MD: ED Physician Arsen Riley HPI: 06/10 11:39 This 79 yrs old Male presents to ER via Unassigned with complaints of Fall rn Injury. 11:39 Details of fall: The patient fell from an upright position, while standing. Onset: The rn symptoms/episode began/occurred just prior to arrival. Associated injuries: The patient sustained right hip. Severity of symptoms: At their worst the symptoms were mild, in the emergency department the symptoms are unchanged. The patient has not experienced similar symptoms in the past. Reports stood up from recliner, feet were asleep, lost footing, fell onto right hip, hard to walk, no pain if holding still but painful with ROM. Reports scraped right arm, but no bony pain, no head injury, has been off his aspirin for sometime.. Historical: - Allergies: 11:40 No Known Allergies; sg - Home Meds: 13:28 allopurinol 300 mg Oral tab 1 tab once daily [Active]; levothyroxine 50 mcg tab 1 tab sg once daily [Active]; atorvastatin 40 mg Oral tab 1 tab once daily [Active]; isosorbide mononitrate 30 mg Oral Tb24 1 tab once daily [Active]; atorvastatin 40 mg Oral tab 1 tab once daily [Active]; lisinopril 2.5 mg Oral tab 1 tab once daily [Active]; zinc sulfate 220 (50) mg Oral cap daily [Active]; - PMHx: 11:40 CAD; Hyperlipidemia; Hypertension; sg - PSHx: 11:40 Angioplasty; colon surgery; stents; sg - Immunization history: Last tetanus immunization: unknown. - Social history:: Smoking status: . - Family history:: not pertinent. - Ebola Screening: : Patient denies travel to an Ebola-affected area in the 21 days before illness onset. - Hospitalizations: : No recent hospitalization is reported. ROS: 11:39 Constitutional: Negative for fever, chills, and weight loss, Eyes: Negative for injury, rn pain, redness, and discharge, Neck: Negative for injury, pain, and swelling, Cardiovascular: Negative for chest pain, palpitations, and edema, Respiratory: Negative for shortness of breath, cough, wheezing, and pleuritic chest pain, Abdomen/GI: Negative for abdominal pain, nausea, vomiting, diarrhea, and constipation, MS/Extremity: + right hip pain and injury Skin: Negative for injury, rash, and discoloration, Neuro: Negative for headache, weakness, numbness, tingling, and seizure. Exam: 11:39 Constitutional: This is a well developed, well nourished patient who is awake, alert, rn and in no acute distress. Head/Face: Normocephalic, atraumatic. ENT: no oral trauma Neck: Trachea midline, no thyromegaly or masses palpated, and no cervical lymphadenopathy. Supple, full range of motion without nuchal rigidity, or vertebral point tenderness. No Meningismus. Cardiovascular: Regular rate and rhythm. No pulse deficits. Abdomen/GI: soft, non-tender, RLQ ostomy with non-bloody stool Back: No spinal tenderness. No costovertebral tenderness. Full range of motion. MS/ Extremity: Pulses equal, no cyanosis. Neurovascular intact. RLE held in passive flexion at the hip with focal tenderness over right hip Neuro: Awake and alert, GCS 15, oriented to person, place, time, and situation. Cranial nerves II-XII grossly intact. Motor strength 5/5 in all extremities. Sensory grossly intact. Vital Signs: 11:40 BP 108 / 91; Pulse 90; Resp 17; Temp 97.2; Pulse Ox 98% on R/A; sg 12:40 BP 110 / 70; Pulse 90; Resp 16; Pulse Ox 92% on R/A; sg 13:04 BP 102 / 75; Pulse 91; Resp 17; Pulse Ox 97% on R/A; tw2 13:40 BP 112 / 72; Pulse 93; Resp 16; Pulse Ox 96% on 4 lpm NC; Pain 7/10; sg 14:59 BP 99 / 63; Pulse 89; Resp 17 S; Pulse Ox 100% ; sg Vicente Coma Score: 11:40 Eye Response: spontaneous(4). Verbal Response: oriented(5). Motor Response: obeys sg commands(6). Total: 15. Trauma Score (Adult): 11:40 Eye Response: spontaneous(1); Verbal Response: oriented(1); Motor Response: obeys sg commands(2); Systolic BP: > 89 mm Hg(4); Respiratory Rate: 10 to 29 per min(4); Vicente Score: 15; Trauma Score: 12 MDM: 11:41 Patient medically screened. rn 13:32 Differential diagnosis: contusion, fracture, sprain, strain. Data reviewed: vital rn signs, nurses notes, radiologic studies, and as a result, I will admit patient. 13:34 Counseling: I had a detailed discussion with the patient and/or guardian regarding: the rn historical points, exam findings, and any diagnostic results supporting the discharge/admit diagnosis, lab results, radiology results, the need for further work-up and treatment in the hospital. Admission orders: after a detailed discussion of the patient's condition and case, the admit orders are written by me. Special discussion:. ED course: Pt with proximal femoral neck fracture, no dislocation, will admit to Dr. Macias with ortho consult. Will needs cardiac and pulm clearance. . 06/10 13:33 Order name: CBC with Diff rn 06/10 13:33 Order name: Basic Metabolic Panel; Complete Time: 14:17 rn 06/10 11:38 Order name: XRAY Pelvis; Complete Time: 13:36 rn 06/10 11:38 Order name: XRAY Hip RIGHT 2 view; Complete Time: 14:47 rn 06/10 13:33 Order name: Protime (+inr); Complete Time: 14:47 rn 06/10 13:33 Order name: Ptt, Activated; Complete Time: 14:47 rn 06/10 11:48 Order name: IV Start; Complete Time: 12:01 rn 06/10 13:33 Order name: EKG; Complete Time: 13:36 rn Administered Medications: 11:59 Drug: morphine 2 mg Route: IVP; Site: left antecubital; sg 13:36 Follow up: Response: No adverse reaction; Pain is unchanged, physician notified sg 11:59 Drug: Zofran 4 mg Route: IVP; Site: left antecubital; sg 13:36 Follow up: Response: No adverse reaction sg 13:59 Drug: Demerol 25 mg Route: IVP; Site: left antecubital; sg Disposition: 06/10/19 13:35 Hospitalization ordered by Nancy Macias for Inpatient Admission. Preliminary diagnosis is Fracture of unspecified part of neck of right femur. - Bed requested for Telemetry/MedSurg (Inpatient). - Status is Inpatient Admission. rv - Condition is Stable. - Problem is new. - Symptoms have improved. UTI on Admission? No Signatures: Dispatcher [employer] EDMS Laurie Valderrama RN RN dw Eliezer Amaya RN RN Arsen Riley MD MD rn Wise, Tara, RN RN 2 Rudolph Brunner RN RN rv Corrections: (The following items were deleted from the chart) 14:53 13:35 Hospitalization Ordered by Nancy Macias MD for Inpatient Admission. Preliminary dw diagnosis is Fracture of unspecified part of neck of right femur. Bed requested for Telemetry/MedSurg (Inpatient). Status is Inpatient Admission. Condition is Stable. Problem is new. Symptoms have improved. UTI on Admission? No. rn 15:06 14:53 06/10/2019 13:35 Hospitalization Ordered by Nancy Macias MD for Inpatient rv Admission. Preliminary diagnosis is Fracture of unspecified part of neck of right femur. Bed requested for Telemetry/MedSurg (Inpatient). Status is Inpatient Admission. Condition is Stable. Problem is new. Symptoms have improved. UTI on Admission? No. dw
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
[2019-06-10] MEDS ORDERED: MEPERIDINE HCL 25 MG/0.5 ML ONE (14:13)
[2019-06-10 14:16] LABS: Potassium 4.4 mmol/L (3.5-5.1)
[2019-06-10 14:33] LABS: Protime INR 1.17
[2019-06-10 14:42] LABS: Absolute Lymphocytes (CBC) 0.7 K/uL (0.7-4.9); Basophils % 0.7 % (0-1.3); Hematocrit 28.8 % (39.6-49.0); Lymphocytes % 11.5 % (15.3-44.8); MPV 8.8 fL (7.6-11.3); RBC Red Blood Cell Count 2.74 M/uL (4.33-5.43)
[2019-06-10 15:19] LABS: Blood Morphology Comment NOTED (NOT SEEN); Macrocytosis 1+; Platelet Estimate ADEQ
[2019-06-10 15:20] LABS: Anisocytosis 1+
[2019-06-10] MEDS: INSULIN -REGULAR HUMAN 50 UNIT/0.5 ML ML SQ SCH ×2 (16:26→20:54)
--- NOTE | 2019-06-10 17:00 | RAD REPORT ---
EXAM DESCRIPTION: RAD - Chest Single View - 06/10/2019 3:42 pm CLINICAL HISTORY: Shortness of breath COMPARISON: April 06 TECHNIQUE: AP portable chest image was obtained 1539 hours . FINDINGS: Lung volumes are low. Patient has a prominent baseline interstitial pattern. These baselin e findings are accentuated by today's shallow inspiration. There does appear to be slightly worse sca ttered alveolar opacities present. Cardiac silhouette is enlarged but not clearly different. Left pul monary artery is accentuated by the shallow inspiration as well. No pneumothorax. Small pleural effus ions could be masked. No acute bony abnormality seen. No acute aortic findings suspected. IMPRESSION: Shallow inspiration film with prominent baseline interstitial pattern. Patient does show some increase in alveolar opacification and a mild failure or volume overload is rhodes spected. This can be correlated with clinical presentation.
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
[2019-06-10] MEDS: MEPERIDINE HCL 25 MG/0.5 ML IV PRN (18:58)
--- NOTE | 2019-06-10 19:44 | RAD REPORT ---
EXAM DESCRIPTION: CT - Pelvis Wo Cont - 06/10/2019 7:17 pm CLINICAL HISTORY: Fall, pelvic pain, right femur fracture COMPARISON: Right pelvic and hip films same date TECHNIQUE: Axial 2 millimeter thick images the pelvis were obtained with sagittal and coronal reform atted images generated and reviewed. The CT scan was performed using dose optimization techniques as appropriate to a performed exam incl uding one or more of the following: Automated exposure control, adjustment of the mA and/or kV accord ing to patient size (this includes techniques or standardized protocols for targeted exams where dose is matched to indication/reason for exam) and use of iterative reconstruction technique. FINDINGS: Right mid abdomen ostomy is identified. No acute bowel finding. In the peritoneal or retroperitoneal spaces there is no free air or free fluid. Prominent prostate gland projects into the bladder base. N o acute bowel finding. Diverticulosis is present. Dense arterial tree calcifications are present. Lower lumbar spine degenerative changes are present. No acute finding of the L3- L5. L5 is partially sacralized. No sacral ala fracture identified. Osteopenic change involves the pelvis. Bilateral SI kailee int degenerative changes are present worse on the left. No fracture of the left [place] pelvis or proxim al left femur. There are degenerative changes at the left hip joint. Right hemipelvis is intact. There are right hip joint degenerative changes present. No AVN or focal femoral head abnormality. There is irregular cortex along the posterior lateral subca pital right femoral neck. Subcapital fracture is suspected without impaction. The patient has a fract ure of the right femoral neck base. This fracture continues inferiorly into the base of the lesser tr ochanter and anterior femur at the level of the lesser trochanter. No significant impaction component seen. No pathologic bone process. Patient has no significant hematoma in the periarticular soft tissues on the right. IMPRESSION: Fracture of the right femur is present of the base of the neck extending into the intert rochanteric portion of the right femur as detailed. No pathologic component. No significant impaction , distraction or angulation deformity. The patient is suspected to have a subcapital neck fracture as well. No pelvic fracture.
[2019-06-10] MEDS: ATORVASTATIN 40 MG TAB PO SCH (21:05)
[2019-06-11] MEDS: MEPERIDINE HCL 25 MG/0.5 ML IV PRN ×2 (03:03→08:50)
[2019-06-11] MEDS: LEVOTHYROXINE SOD 0.05 MG TABLET PO SCH (05:13)
[2019-06-11 05:41] LABS: Absolute Lymphocytes (CBC) 0.6 K/uL (0.7-4.9); Basophils % 0.9 % (0-1.3); Hematocrit 25.7 % (39.6-49.0); Lymphocytes % 8.3 % (15.3-44.8); MPV 9.1 fL (7.6-11.3); RBC Red Blood Cell Count 2.47 M/uL (4.33-5.43)
[2019-06-11 05:47] LABS: Albumin 2.8 g/dL (3.4-5.0); Potassium 4.4 mmol/L (3.5-5.1); Protein, Total 4.9 g/dL (6.4-8.2)
[2019-06-11 05:51] LABS: Magnesium 1.8 mg/dL (1.8-2.4); Phosphorus 4.1 mg/dL (2.5-4.9)
[2019-06-11] MEDS: INSULIN -REGULAR HUMAN 50 UNIT/0.5 ML ML SQ SCH ×4 (07:30→20:22)
[2019-06-11] MEDS ORDERED: MAGNESIUM SULFATE 1 gm IVPB 1 GM/100 ML BAG IV ONE (08:00)
[2019-06-11] MEDS: LISINOPRIL 5 MG TAB PO SCH (08:51)
[2019-06-11] MEDS: ASPIRIN EC 81 MG TAB PO SCH (08:51)
[2019-06-11] MEDS: ISOSORBIDE MONO SR 30 MG TAB PO SCH (08:51)
[2019-06-11] MEDS: ZINC SULFATE 220 MG CAP PO SCH (08:51)
[2019-06-11] MEDS: ALLOPURINOL 300 MG TAB PO SCH (08:51)
--- NOTE | 2019-06-11 09:14 | RAD REPORT ---
EXAM DESCRIPTION: [place] Single View06/11/2019 8:51 am CLINICAL HISTORY: Shortness of breath COMPARISON: June 10, 2019 FINDINGS: [id number] bilateral pulmonary opacities without significant change. The heart is mi ldly to moderately enlarged. IMPRESSION: [id number] bilateral pulmonary opacities probably representing pulmonary edema sup erimposed over pulmonary fibrosis
--- NOTE | 2019-06-11 10:52 | EKG ---
Test Date: 2019-06-10 Test Time: 13:56:38 Die Cut Operator: KYM MEASUREMENT RESULTS: Intervals: Rate: 93 NE: 232 QRSD: 128 QT: 378 QTc: 469 [place]: P: NE: 232 QRS: -4 T: 148 INTERPRETIVE STATEMENTS: Sinus rhythm with 1st degree AV block with premature ventricular complexes Nonspecific intraventricular block Cannot rule out Septal infarct, age undetermined Cannot rule out Inferior infarct, age undetermined T wave abnormality, consider lateral ischemia Abnormal ECG Compared to ECG 03/15/2019 11:12:02 PVC s are now present Electronically Signed On 06-11-19 10:51:11 CDT by Porfirio Mullins
[2019-06-11] MEDS ORDERED: NA CHLORIDE 0.9% 1,000 ML ONE (11:06)
[2019-06-11] MEDS ORDERED: PROPOFOL 200 MG/20 ML VIAL IV ONE (11:30)
[2019-06-11] MEDS ORDERED: FENTANYL CITR 100 MCG/2 ML ONE (11:30)
[2019-06-11] MEDS ORDERED: LIDOCAINE 2% MPF 5 ML VIAL ONE (11:30)
[2019-06-11] MEDS ORDERED: CEFAZOLIN SODIUM 1 GM/VIAL ONE (11:52)
[2019-06-11] MEDS ORDERED: CEFAZOLIN/SWI 1gm 1 GM/10 ML SYR ONE (11:52)
[2019-06-11] MEDS ORDERED: NS 0.9% VIAL 20 ML ONE (12:57)
--- NOTE | 2019-06-11 13:06 | P.PN ---
Subjective Date of Service: 06/11/19 Chief Complaint: Hip fracture Patient seen and examined at bedside. Cart reviewed and case discussed with Dr. Zapien and nursing staff. Patient is pending surgery with Dr. Zapien today No acute events noted overnight. Review of Systems 10-point ROS is otherwise unremarkable Physical Examination - Vital Signs Temperature: 98.4 F Blood Pressure: 108/56 Pulse: 82 Respirations: 18 Pulse Ox (%): 97 - Physical Exam General: Alert, In no apparent distress HEENT: Atraumatic, PERRLA, EOMI Neck: Supple, JVD not distended Respiratory: Clear to auscultation bilaterally, Normal air movement Cardiovascular: Regular rate/rhythm, Normal S1 S2 Gastrointestinal: Normal bowel sounds, No tenderness Musculoskeletal: Tenderness Integumentary: No rashes Neurological: Normal speech, Normal tone, Normal affect Lymphatics: No axilla or inguinal lymphadenopathy - Studies Laboratory Data (last 24 hrs) 06/10/19 13:42: PT 13.7 H, INR 1.17, APTT 30.2 06/10/19 13:42: Sodium 142, Potassium 4.4, BUN 37 H, Creatinine 1.18, Glucose 112 H 06/10/19 13:42: WBC 6.5, Hgb 9.3 L, Hct 28.8 L, Plt Count 121 L Assessment And Plan - Current Problems (Diagnosis) (1) Femoral neck fracture Current Visit: Yes Status: Acute Plan: Secondary to a mechanical fall. - Patient with femoral neck fracture, right hip. -continue pain control; NPO -Orthopedics consultation, recommendations appreciated. -patient is probably a moderate risk for surgery. -cardiology cleared patient for surgery, pending today. -patient wall need further physical therapy/rehab down the line. Aocial work consulted for discharge/disposition planning. Qualifiers: Encounter type: initial encounter Fracture type: closed Laterality: right Qualified Code(s): S72.001A - Fracture of unspecified part of neck of right femur, initial encounter for closed fracture (2) Fall Current Visit: Yes Status: Acute Qualifiers: Encounter type: initial encounter Qualified Code(s): W19.XXXA - Unspecified fall, initial encounter (3) History of coronary artery disease Onset Date: 12/02/18 Current Visit: Yes Status: Acute Plan: Patient with a echo done in March of 2019, 33% ejection fraction with global hypokinesis. -cardiology cleared patient -Continue home medications as tolerated (4) COPD (chronic obstructive pulmonary disease) Current Visit: No Status: Acute Plan: Patient with a history of COPD, currently stable -will continue breathing treatments as needed Qualifiers: COPD type: unspecified COPD Qualified Code(s): J44.9 - Chronic obstructive pulmonary disease, unspecified (5) Colon cancer Onset Date: 12/02/18 Current Visit: No Status: Chronic Qualifiers: Colon location: unspecified part of colon (6) Hyperlipidemia Current Visit: No Status: Chronic Qualifiers: Hyperlipidemia type: unspecified Qualified Code(s): E78.5 - Hyperlipidemia , unspecified - Plan DVT prophylaxis: Hold anticoagulation for potential surgery GI prophylaxis: None Diet: NPO Disposition: Pending ortho surgery. We will get social work involved for discharge plan planning as patient will likely need some form of physical therapy
--- NOTE | 2019-06-11 13:33 | CON ---
Date of Consultation: 06/11/2019 Reason For Consultation: Right hip pain. History Of Present Illness: Mr. Ramirez is an 79-year-old male with history of hypertension, coronary artery disease, hyperlipidemia, COPD, colon cancer, who presents with right hip pain after a fall yesterday before standing from a seated position when his legs gave out on him and he fell onto his right side with subsequent right hip pain and inability to bear weight. He was brought to the ER and had x-rays, which demonstrated a right hip fracture. He had a CAT scan of his right hip, which demonstrated a basicervical intertrochanteric right femur fracture. He reports the pain in his right hip. At this time, he denies any other musculoskeletal complaints. Prior to the fall, he mobilized on his own without assistive devices, but also used a cane on occasion. Review of Systems: As above, otherwise negative. Past Medical History: Includes coronary artery disease, COPD, hypertension, dyslipidemia, colon cancer. Past Surgical History: Includes skin graft, angioplasty with stents and ostomy placement. Home Medications: Atorvastatin, isosorbide mononitrate, Synthroid, Zestril, zinc sulfate, allopurinol, aspirin. Allergies: NO KNOWN DRUG ALLERGIES. Social History: Reports history of smoking, not current smoker. No tobacco or alcohol use. Lives at home. Physical Examination: General: No apparent distress. HEENT: Normocephalic, atraumatic. Neck: Supple. Cardiovascular: Brisk cap refill to all digits. Chest: Nonlabored breathing Abdomen: Nondistended. Psychiatric: Responsive to exam. Musculoskeletal: He is tender to palpation of the right hip, pain with range of motion of the right hip. No tenderness to palpation of the distal femur, knee, tibia, or ankle. Left lower extremity functional range of motion without pain. No gross deformities. No obvious dislocations. Bilateral upper extremities functional range of motion without pain. No gross deformities. No obvious dislocations. X-rays: X-rays of his right hip demonstrate a basicervical intertrochanteric right femur fracture. On x-ray, there are some signs consistent with incomplete possible subcapital femoral neck fracture; however, CT scan did not show any significant subcapital femur fracture. Assessment And Plan: Mr. Ramirez is an 79-year-old male with a right intertrochanteric femur fracture. I discussed with the patient at length risks and benefits associated with operative and nonoperative treatment. He has a high surgical risk given his history of CAD and CHF with ejection fraction of 33 %. I discussed with the patient the possibility of perioperative mortality. He expressed understanding. He does mobilize and is able to walk and would like to continue to do so. We will plan on right hip cephalomedullary fixation once evaluated and cleared by Cardiology and medical management per Dr. Macias. He will be typed and screened and we discussed the likelihood of transfusion given his preoperative anemia. CV/MODL Voice ID: [id number] Report ID: [id number] JONATHAN
--- NOTE | 2019-06-11 13:40 | RAD REPORT ---
EXAM DESCRIPTION: RAD - Hip In Or - 06/11/2019 1:30 pm CLINICAL HISTORY: Right femoral fracture. FINDINGS: Four fluoroscopic intraoperative spot views submitted. Compression screw and intramedullar y young affix a right femoral fracture in good alignment. Fluoroscopy time 0.7 minutes. The surgery was performed by Dr. Zapien.
--- NOTE | 2019-06-11 13:42 | P.BOP ---
Preoperative diagnosis: right intertrochanteric femur fracture Postoperative diagnosis: same Primary procedure: cephallomedullary fixation of right intertrochanteric femur fracture [employer] Specialty: NONE,NONE Estimated blood loss: 100 cc Specimen: none Findings: see dictation Anesthesia: General Complications: None Implants: [id number] mm Biomet Affixus nail, 100 mm lag screw Fluids & blood products: per anesthesia record Transferred to: Recovery Room Condition: Good
--- NOTE | 2019-06-11 14:18 | CON ---
Identification: An 79-year-old man. Chief Complaint: Pain in his right hip. History Of Present Illness: Mr. Ramirez was sitting in a chair. He had been sitting for some time. H is feet went to sleep. When he stood up, he could not feel his feet. He stumbled, fell, and now has a right femoral neck fracture. Recommendation is pinning. I am asked to see him before he goes thr ough surgery to see if his heart is acceptable risk. Mr. Ramirez has a history of CAD, had his first M I in 1990, treated with balloon angioplasty. He had several other angioplasties, no stents. He was a smoker back, then quit smoking in 1997, and has had no coronary interventions since the late . He did have a cardiac catheterization in 2018. No intervention was done at that time. An echocard iogram showed his ejection fraction is about 33% just a few months ago. Mr. Ramirez has been feeling w ell, not having chest pain, shortness of breath, orthopnea. He has pleural effusions related to marta estive heart failure, which seems to be under good control. Medications: Outpatient medications have been zinc sulfate, lisinopril, levothyroxine, isosorbide, a torvastatin, aspirin, and allopurinol. Physical Examination: General: He is alert, oriented. Vital Signs: 6 feet tall, 158 pounds. Lungs: Clear. Heart: Reveals a regular rate and rhythm. Abdomen: Soft. Extremities: Reveal palpable distal pulses. Impression: My recommendation is that the patient is stable enough to go through general anesthesia, open repair of right femoral neck fracture. ELIZABETH/NAILA Voice ID: [id number] Report ID: [id number]
[2019-06-11] MEDS ORDERED: KETOROLAC 30 MG/ML INJ ONE (14:21)
[2019-06-11] MEDS ORDERED: MIDAZOLAM HCL 2 MG/2 ML INJ ONE (14:21)
[2019-06-11] MEDS ORDERED: DOCUSATE NA 100 MG CAP PO PRN (14:53)
[2019-06-11] MEDS ORDERED: ONDANSETRON 4 MG/2 ML VIAL IV PRN (14:53)
--- NOTE | 2019-06-11 15:33 | RAD REPORT ---
EXAM DESCRIPTION: RAD - Hip Right 2 View - 06/11/2019 3:19 pm CLINICAL HISTORY: s/p IMN right hip COMPARISON: Hip Right 2 View dated 06/10/2019; Hip In Or dated 06/11/2019; Pelvis Wo Cont dated 019; Pelvis dated 06/10/2019 FINDINGS: Previously noted proximal right femur fracture has been reduced by means of a proximal fem oral nail. Soft tissue swelling skin nina are noted laterally.
[2019-06-11 15:49] LABS: Hematocrit 27.8 % (39.6-49.0)
[2019-06-11 16:03] VITALS: BMI 22.0
[2019-06-11] MEDS: CEFAZOLIN/SWI 2gm 2 GM/20 ML SYR IVP SCH ×2 (17:30→23:40)
[2019-06-11] MEDS: ATORVASTATIN 40 MG TAB PO SCH (20:21)
[2019-06-12] MEDS: HYDROCODONE/APAP 7.5/325 MG TAB PO PRN ×2 (04:48→08:47)
--- NOTE | 2019-06-12 05:41 | OP ---
Date of Procedure: 06/10/2019 Surgeon: Sam Zapien MD Preoperative Diagnosis: Right intertrochanteric femur fracture. Postoperative Diagnosis: Right intertrochanteric femur fracture. Procedure Performed: Cephalomedullary fixation of right intertrochanteric femur fracture. Anesthesia: General LMA. Fluids: Per Anesthesia record. Estimated Blood Loss: 100 cc. Complications: None. Implants: An 11 x 180 mm Biomet Affixus nail with 100 mm lag screw more than 125 degrees. Indication For Procedure: Gautam is an 79-year-old male who presented to the ER yesterday after sustaining a fall onto his right side with subsequent right hip pain. X-rays demonstrated a right intertrochanteric femur fracture with possible subcapital extension. A CT scan was ordered for further evaluation, which demonstrated the fracture pattern being intertrochanteric femur fracture. I discussed with the patient and his family the risks and benefits associated with operative and nonoperative treatment at length. They expressed understanding and elected to proceed with operative treatment. Description Of Procedure: After informed consent was obtained, patient has been identified in the preoperative holding area. The right lower extremity was marked. Patient was then brought back to the operating room, transferred to the operating table in supine fashion, placed under general LMA anesthesia. He was placed in a fracture table with his extremities well-padded. The left lower extremity was held in a flexed and abducted position, but no tension was noted on the left lower extremity. The extremity was also noted to be well padded. The right lower extremity was then placed in mild abduction and internal rotation to obtain reduction of the fracture. Fluoroscopy was then used to ensure proper reduction of the fracture preoperatively. The right lower extremity was then prepped and draped in usual sterile fashion. A time- out was initiated. The correct patient and procedure were confirmed and identified. The patient did receive his preoperative prophylactic antibiotics. An approximately 5 cm longitudinal incision was made just proximal to greater trochanter. Dissection was taken down to the tip of the greater trochanter using Bovie electrocautery. Hemostasis was maintained. A guidepin was then placed down the femoral canal in an antegrade fashion. The tip of the greater trochanter down the femoral canal. The fluoroscopy was then used to ensure proper placement of the guidepin onto the greater trochanter in center-center position. After this was confirmed, an entry reamer was then placed over the tip of the guidepin and placed down the femoral canal by hand to the level of the lesser trochanter. The reamer and guidepin were then removed and a ball nosed guidewire was then placed down the shaft femoral canal, but was measured to 12 mm and there was good overall fit. A size 11 mm short nail was then selected and placed down the femoral canal in an antegrade fashion. Proper positioning and placement were confirmed using fluoroscopy. Once to a proper depth, the guidepin was placed. A second stab incision was placed over the lateral thigh with triple sleeve was then placed down the lateral femoral cortex. A guidepin was then placed in the femoral head in a center-center position and proper positioning was confirmed on both AP and lateral views using fluoroscopy. Once proper position was confirmed, the guidepin was measured to the depth and a size 100 mm lag screw was selected. 100 mm reamer was then placed over the guidepin and followed by placement of 100 mm lag screw. After the initial guidepin was placed, a second guidepin was placed prior to the reaming and placement of the lag screw to prevent any rotation of the fracture. After the 100 mm lag screw was placed, both guidepins were then removed without complication. The fracture was locked into position with the set screw. Next, using a jig, a distal interlocking screw was then placed in bicortical fashion. The jig was then removed. Final x-rays were then taken and there was overall good placement of the implant as well as lag screw and distal interlocking screw. Wounds were then irrigated thoroughly with normal saline. Deep tissues approximated using a 0 Vicryl. Subcutaneous tissue was approximated using 2-0 Vicryl. Skin was approximated using hector. Hector and sterile dressings were applied. The patient was awakened and transferred to PACU in stable condition. Postoperative Plan: He will be weightbearing as tolerated. Physical Therapy will be consulted to aid in patient's mobilization starting tomorrow. Dr. Macias will continue with medical management. GAVIN/NAILA Voice ID: [id number] Report ID: [id number] JONATHAN
[2019-06-12 05:51] LABS: Absolute Lymphocytes (CBC) 0.6 K/uL (0.7-4.9); Basophils % 1.2 % (0-1.3); Hematocrit 23.8 % (39.6-49.0); Lymphocytes % 8.5 % (15.3-44.8); RBC Red Blood Cell Count 2.25 M/uL (4.33-5.43)
[2019-06-12 06:13] LABS: Albumin 2.6 g/dL (3.4-5.0); Bilirubin Total 0.7 mg/dL (0.2-1.0); Magnesium 2.2 mg/dL (1.8-2.4); Potassium 4.5 mmol/L (3.5-5.1); Protein, Total 4.7 g/dL (6.4-8.2)
[2019-06-12] MEDS: CEFAZOLIN/SWI 2gm 2 GM/20 ML SYR IVP SCH (06:13)
[2019-06-12] MEDS: LEVOTHYROXINE SOD 0.05 MG TABLET PO SCH (06:13)
[2019-06-12 06:52] LABS: Anisocytosis 1+; Blood Morphology Comment NOTED (NOT SEEN); Macrocytosis 1+; Platelet Estimate DECR; Urine White Blood Cell Casts OK
[2019-06-12] MEDS: INSULIN -REGULAR HUMAN 50 UNIT/0.5 ML ML SQ SCH ×2 (07:30→11:30)
[2019-06-12] MEDS: ENOXAPARIN 40 MG/0.4 ML SQ SCH (08:47)
[2019-06-12] MEDS: ALLOPURINOL 300 MG TAB PO SCH (08:48)
[2019-06-12] MEDS: LISINOPRIL 5 MG TAB PO SCH (08:48)
[2019-06-12] MEDS: ZINC SULFATE 220 MG CAP PO SCH (08:48)
[2019-06-12] MEDS: ASPIRIN EC 81 MG TAB PO SCH (08:48)
[2019-06-12] MEDS: ISOSORBIDE MONO SR 30 MG TAB PO SCH (08:48)
[2019-06-12] MEDS ORDERED: NA CHLORIDE 0.9% 250 ML ONE (10:33)
--- NOTE | 2019-06-12 12:07 | P.PN ---
Subjective Date of Service: 06/12/19 Chief Complaint: s/p IMN right hip pain controlled Physical Examination - Vital Signs Temperature: 97.9 F Blood Pressure: 76/41 Pulse: 87 Respirations: 15 Pulse Ox (%): 100 - Physical Exam General: Alert, In no apparent distress Musculoskeletal: Other (RLE: dressing c/d/i; no significant swelling of the right thigh; NVI distally) - Studies Laboratory Data (last 24 hrs) 06/10/19 13:42: WBC 6.5 Assessment And Plan - Plan Gautam is an 79 yo male s/p right hip nailing POD#1 -acute expected postoperative blood loss anemia on top of chronic anemia; patient to be transfused 1 unit PRBC -PT to mobilize; WBAT RLE -lovenox for DVT prophylaxis -await PT eval for placement
--- NOTE | 2019-06-12 12:22 | P.PN ---
Subjective Date of Service: 06/12/19 Chief Complaint: s/p IMN right hip Subjective: Improving Patient seen and examined at bedside. Cart reviewed and case discussed with Dr. Zapien and nursing staff. Patient is status post Cephalomedullary fixation of right intertrochanteric femur fracture (06/11/19), POD#1 He was transferred to the ICU due to hypotension status post surgery. Blood pressures remained low but stable overnight. Map remained above 60. He did not require any pressors. He is asymptomatic. He states pain is well controlled. Sitting up in bed, and tolerating p.o. diet. Working with physical therapy today. Review of Systems 10-point ROS is otherwise unremarkable Physical Examination - Vital Signs Temperature: 97.9 F Blood Pressure: 76/41 Pulse: 87 Respirations: 15 Pulse Ox (%): 100 - Physical Exam General: Alert, In no apparent distress HEENT: Atraumatic, PERRLA, EOMI Neck: Supple, JVD not distended Respiratory: Clear to auscultation bilaterally, Normal air movement Cardiovascular: Regular rate/rhythm, Normal S1 S2 Gastrointestinal: Normal bowel sounds, No tenderness Musculoskeletal: No tenderness Integumentary: No rashes Neurological: Normal speech, Normal tone, Normal affect Lymphatics: No axilla or inguinal lymphadenopathy - Studies Laboratory Data (last 24 hrs) 06/10/19 13:42: WBC 6.5 Assessment And Plan - Current Problems (Diagnosis) (1) Femoral neck fracture Current Visit: Yes Status: Acute Plan: Secondary to a mechanical fall. -Patient with femoral neck fracture, right hip, status post Cephalomedullary fixation of right intertrochanteric femur fracture (06/11/19), POD#1 -continue pain control as needed. -Orthopedics consultation, recommendations appreciated. -continue physical therapy -patient will need further physical therapy/rehab down the line. Social work consulted for discharge/disposition planning. Qualifiers: Encounter type: initial encounter Fracture type: closed Laterality: right Qualified Code(s): S72.001A - Fracture of unspecified part of neck of right femur, initial encounter for closed fracture (2) Fall Current Visit: Yes Status: Acute Qualifiers: Encounter type: initial encounter Qualified Code(s): W19.XXXA - Unspecified fall, initial encounter (3) History of coronary artery disease Onset Date: 12/02/18 Current Visit: Yes Status: Acute Plan: Patient with a echo done in March of 2019, 33% ejection fraction with global hypokinesis. -cardiology cleared patient -Continue home medications as tolerated (4) COPD (chronic obstructive pulmonary disease) Current Visit: No Status: Acute Plan: Patient with a history of COPD, currently stable -will continue breathing treatments as needed Qualifiers: COPD type: unspecified COPD Qualified Code(s): J44.9 - Chronic obstructive pulmonary disease, unspecified (5) Colon cancer Onset Date: 12/02/18 Current Visit: No Status: Chronic Qualifiers: Colon location: unspecified part of colon (6) Hyperlipidemia Current Visit: No Status: Chronic Qualifiers: Hyperlipidemia type: unspecified Qualified Code(s): E78.5 - Hyperlipidemia , unspecified (7) Hypotension Current Visit: Yes Status: Acute Plan: Stable and asymptomatic. - continue to monitor blood pressure. We will be careful how much fluid to keep patient as patient with ejection fraction of 30% and global hypokinesis on echo. Qualifiers: Hypotension type: postprocedural hypotension Qualified Code(s): I95.81 - Postprocedural hypotension (8) Anemia Onset Date: 12/02/18 Current Visit: No Status: Acute Plan: Acute blood loss anemia on top of underline chronic anemia. -patient is status post 1 unit PRBC today. Will continue to monitor H&H Qualifiers: Anemia type: iron deficiency Iron deficiency anemia type: chronic blood loss Qualified Code(s): D50.0 - Iron deficiency anemia secondary to blood loss (chronic) - Plan DVT prophylaxis: Lovenox GI prophylaxis: None Diet: Heart healthy Disposition: Transfer to the floor. Social work on board for discharge planning, pending physical therapy evaluation.
--- NOTE | 2019-06-12 15:33 | PN ---
Date of Progress Note: 06/12/2019 Mr. Ramirez is an 79-year-old, has an ejection fraction of 33%. He is status post multiple PTCA. The last catheterization was in 2018, that showed minimal coronary artery disease, no restenosis. He had a cardiac cath yesterday by Dr. Mullins for a right femoral fracture surgery. He underwent surgery. He did well. In general, no arrhythmia. He has had some slight hypotension. His saturation is 93% . He is in sinus rhythm. Hemoglobin is 9.0. Creatinine 1.13. We will continue his present regimen and be careful with hydration. We will continue to follow him. GORDY/NAILA Voice ID: [id number] Report ID: [id number]
[2019-06-12 15:56] LABS: Hematocrit 26.4 % (39.6-49.0)
[2019-06-12] MEDS: ATORVASTATIN 40 MG TAB PO SCH (21:22)
[2019-06-13] MEDS: LEVOTHYROXINE SOD 0.05 MG TABLET PO SCH (05:21)
[2019-06-13 06:31] LABS: Absolute Lymphocytes (CBC) 0.8 K/uL (0.7-4.9); Basophils % 1.2 % (0-1.3); Hematocrit 25.7 % (39.6-49.0); Lymphocytes % 10.1 % (15.3-44.8); MPV 10.3 fL (7.6-11.3); RBC Red Blood Cell Count 2.54 M/uL (4.33-5.43)
[2019-06-13 07:02] LABS: Albumin 2.8 g/dL (3.4-5.0); Potassium 4.8 mmol/L (3.5-5.1); Protein, Total 5.2 g/dL (6.4-8.2)
[2019-06-13] MEDS: ENOXAPARIN 40 MG/0.4 ML SQ SCH (09:00)
[2019-06-13] MEDS: ISOSORBIDE MONO SR 30 MG TAB PO SCH (09:00)
[2019-06-13] MEDS: LISINOPRIL 5 MG TAB PO SCH (09:00)
[2019-06-13] MEDS: ASPIRIN EC 81 MG TAB PO SCH (09:00)
[2019-06-13] MEDS: ZINC SULFATE 220 MG CAP PO SCH (09:12)
[2019-06-13] MEDS: ALLOPURINOL 300 MG TAB PO SCH (09:18)
--- NOTE | 2019-06-13 09:59 | P.PN ---
Subjective Date of Service: 06/13/19 Chief Complaint: s/p IMN right hip Subjective: Working w/ PT pain controlled; stood up with PT yesterday Physical Examination - Vital Signs Temperature: 98.9 F Blood Pressure: 92/42 Pulse: 89 Respirations: 15 Pulse Ox (%): 97 - Physical Exam General: Alert, In no apparent distress Musculoskeletal: Other (RLE: dressings with minimal old sanguinous drainage; no swelling of the thigh; NVI distally) Assessment And Plan - Plan Gautam is an 79 yo male s/p right hip nailing POD#2 -acute expected postoperative blood loss anemia on top of chronic anemia; H/H stable after transfusion -PT to mobilize; WBAT RLE -lovenox for DVT prophylaxis -rehab consult to evaluate for inpatient rehab placement
[2019-06-13] MEDS: HYDROCODONE/APAP 7.5/325 MG TAB PO PRN (10:03)
--- NOTE | 2019-06-13 10:19 | PN ---
Date of Progress Note: 06/13/2019 Subjective: Mr. Ramirez underwent an open reduction and internal fixation of his right hip approximate ly 48 hours ago. We have been following him postop after we cleared him because of history of conges tive heart failure with an ejection fraction of 33%. The patient had tolerated the procedure well. He has not had any arrhythmia. There is no clinical evidence of congestive heart failure. He has re mained in sinus rhythm. He is slightly hypotensive. He is feeling fatigued. I think we need to con tinue his present regimen and encourage physical therapy involvement. We will sign off his case for now. GORDY/NAILA Voice ID: [id number] Report ID: [id number]
--- NOTE | 2019-06-13 14:41 | P.PN ---
Subjective Date of Service: 06/13/19 Chief Complaint: s/p IMN right hip Patient seen and examined at bedside. Cart reviewed and case discussed with Dr. Zapien and nursing staff. Patient is status post Cephalomedullary fixation of right intertrochanteric femur fracture (06/11/19), POD#2 Blood pressures remained low but stable overnight. Map remained above 60. He did not require any pressors. He is asymptomatic. He states pain is well controlled. Sitting up in bed, and tolerating p.o. diet. Working with physical therapy today. Review of Systems 10-point ROS is otherwise unremarkable Physical Examination - Vital Signs Temperature: 98.9 F Blood Pressure: 106/54 Pulse: 87 Respirations: 15 Pulse Ox (%): 97 - Physical Exam General: Alert, In no apparent distress HEENT: Atraumatic, PERRLA, EOMI Neck: Supple, JVD not distended Respiratory: Clear to auscultation bilaterally, Normal air movement Cardiovascular: Regular rate/rhythm, Normal S1 S2 Gastrointestinal: Normal bowel sounds, No tenderness Musculoskeletal: No tenderness Integumentary: No rashes Neurological: Normal speech, Normal tone, Normal affect Lymphatics: No axilla or inguinal lymphadenopathy Assessment And Plan - Current Problems (Diagnosis) (1) Femoral neck fracture Current Visit: Yes Status: Acute Plan: Secondary to a mechanical fall. -Patient with femoral neck fracture, right hip, status post Cephalomedullary fixation of right intertrochanteric femur fracture (06/11/19), POD#2 -continue pain control as needed. -Orthopedics consultation, recommendations appreciated. -continue physical therapy -patient will need further physical therapy/rehab down the line. Social work consulted for discharge/disposition planning.Pending Rehab consult Qualifiers: Encounter type: initial encounter Fracture type: closed Laterality: right Qualified Code(s): S72.001A - Fracture of unspecified part of neck of right femur, initial encounter for closed fracture (2) Fall Current Visit: Yes Status: Acute Qualifiers: Encounter type: initial encounter Qualified Code(s): W19.XXXA - Unspecified fall, initial encounter (3) History of coronary artery disease Onset Date: 12/02/18 Current Visit: Yes Status: Acute Plan: Patient with a echo done in March of 2019, 33% ejection fraction with global hypokinesis. -cardiology cleared patient -Continue home medications as tolerated (4) COPD (chronic obstructive pulmonary disease) Current Visit: No Status: Acute Plan: Patient with a history of COPD, currently stable -will continue breathing treatments as needed Qualifiers: COPD type: unspecified COPD Qualified Code(s): J44.9 - Chronic obstructive pulmonary disease, unspecified (5) Colon cancer Onset Date: 12/02/18 Current Visit: No Status: Chronic Qualifiers: Colon location: unspecified part of colon (6) Hyperlipidemia Current Visit: No Status: Chronic Qualifiers: Hyperlipidemia type: unspecified Qualified Code(s): E78.5 - Hyperlipidemia , unspecified (7) Hypotension Current Visit: Yes Status: Acute Plan: Stable and asymptomatic. - continue to monitor blood pressure. We will be careful how much fluid to keep patient as patient with ejection fraction of 30% and global hypokinesis on echo. Qualifiers: Hypotension type: postprocedural hypotension Qualified Code(s): I95.81 - Postprocedural hypotension (8) Anemia Onset Date: 12/02/18 Current Visit: No Status: Acute Plan: Acute blood loss anemia on top of underline chronic anemia. -patient is status post 1 unit PRBC today. Will continue to monitor H&H Qualifiers: Anemia type: iron deficiency Iron deficiency anemia type: chronic blood loss Qualified Code(s): D50.0 - Iron deficiency anemia secondary to blood loss (chronic) - Plan DVT prophylaxis: Lovenox GI prophylaxis: None Diet: Heart healthy Disposition: Social work on board for discharge planning, pending inpatient rehab consult.
[2019-06-13] MEDS: ATORVASTATIN 40 MG TAB PO SCH (21:27)
[2019-06-13] MEDS: TRAMADOL HCL 50 MG TAB PO PRN (23:53)
[2019-06-14] MEDS: LEVOTHYROXINE SOD 0.05 MG TABLET PO SCH (06:08)
[2019-06-14] MEDS: ISOSORBIDE MONO SR 30 MG TAB PO SCH (08:26)
[2019-06-14] MEDS: ZINC SULFATE 220 MG CAP PO SCH (08:26)
[2019-06-14] MEDS: ENOXAPARIN 40 MG/0.4 ML SQ SCH (08:26)
[2019-06-14] MEDS: ALLOPURINOL 300 MG TAB PO SCH (08:26)
[2019-06-14] MEDS: LISINOPRIL 5 MG TAB PO SCH (08:27)
[2019-06-14] MEDS: ASPIRIN EC 81 MG TAB PO SCH (08:28)
--- NOTE | 2019-06-14 12:15 | P.PN ---
Subjective Date of Service: 06/14/19 Chief Complaint: s/p IMN right hip Subjective: Working w/ PT pain controlled; improving with PT Physical Examination - Vital Signs Temperature: 98.1 F Blood Pressure: 95/69 Pulse: 90 Respirations: 14 Pulse Ox (%): 98 - Physical Exam General: Alert, In no apparent distress Musculoskeletal: Other (RLE: dressing with some sanguinous drainage; +EHL/FHL/ GSC/TA; sensation grossly intact distally) Assessment And Plan - Plan Gautam is an 79 yo male s/p right hip nailing POD#3 -acute expected postoperative blood loss anemia on top of chronic anemia; H/H stable after transfusion; will recheck h/H today -PT to mobilize; WBAT RLE -lovenox for DVT prophylaxis -rehab consult to evaluate for inpatient rehab placement
[2019-06-14 15:46] LABS: Absolute Lymphocytes (CBC) 0.7 K/uL (0.7-4.9); Basophils % 0.9 % (0-1.3); Hematocrit 24.2 % (39.6-49.0); Lymphocytes % 11.7 % (15.3-44.8); MPV 9.4 fL (7.6-11.3); RBC Red Blood Cell Count 2.35 M/uL (4.33-5.43)
[2019-06-14 15:51] LABS: Potassium 4.6 mmol/L (3.5-5.1)
--- NOTE | 2019-06-14 16:58 | P.PN ---
Subjective Date of Service: 06/14/19 Chief Complaint: s/p IMN right hip Subjective: Improving Patient seen and examined at bedside. Cart reviewed and case discussed with Dr. Zapien and nursing staff. Patient is status post Cephalomedullary fixation of right intertrochanteric femur fracture (06/11/19), POD#3 Blood pressures remained low but stable overnight. He is asymptomatic. He states pain is well controlled. Sitting up in bed, and tolerating p.o. diet. Working with physical therapy today. Denies any complaints this morning Review of Systems 10-point ROS is otherwise unremarkable Physical Examination - Vital Signs Temperature: 98.1 F Blood Pressure: 95/69 Pulse: 90 Respirations: 14 Pulse Ox (%): 98 - Physical Exam General: Alert, In no apparent distress, Oriented x3 HEENT: Atraumatic, PERRLA, EOMI Neck: Supple, JVD not distended Respiratory: Clear to auscultation bilaterally, Normal air movement Cardiovascular: Regular rate/rhythm, Normal S1 S2 Gastrointestinal: Normal bowel sounds, No tenderness Musculoskeletal: Tenderness Integumentary: No rashes Neurological: Normal speech, Normal tone, Normal affect Lymphatics: No axilla or inguinal lymphadenopathy Assessment And Plan - Current Problems (Diagnosis) (1) Femoral neck fracture Current Visit: Yes Status: Acute Plan: Secondary to a mechanical fall. -Patient with femoral neck fracture, right hip, status post Cephalomedullary fixation of right intertrochanteric femur fracture (06/11/19), POD#3 -continue pain control as needed. -Orthopedics consultation, recommendations appreciated. -continue physical therapy -patient will need further physical therapy/rehab down the line. Social work consulted for discharge/disposition planning.Pending Rehab consult Qualifiers: Encounter type: initial encounter Fracture type: closed Laterality: right Qualified Code(s): S72.001A - Fracture of unspecified part of neck of right femur, initial encounter for closed fracture (2) Fall Current Visit: Yes Status: Acute Qualifiers: Encounter type: initial encounter Qualified Code(s): W19.XXXA - Unspecified fall, initial encounter (3) History of coronary artery disease Onset Date: 12/02/18 Current Visit: Yes Status: Acute Plan: Patient with a echo done in March of 2019, 33% ejection fraction with global hypokinesis. -cardiology cleared patient -Continue home medications as tolerated (4) COPD (chronic obstructive pulmonary disease) Current Visit: No Status: Acute Plan: Patient with a history of COPD, currently stable -will continue breathing treatments as needed Qualifiers: COPD type: unspecified COPD Qualified Code(s): J44.9 - Chronic obstructive pulmonary disease, unspecified (5) Colon cancer Onset Date: 12/02/18 Current Visit: No Status: Chronic Qualifiers: Colon location: unspecified part of colon (6) Hyperlipidemia Current Visit: No Status: Chronic Qualifiers: Hyperlipidemia type: unspecified Qualified Code(s): E78.5 - Hyperlipidemia , unspecified (7) Hypotension Current Visit: Yes Status: Resolved Plan: Stable and asymptomatic. - continue to monitor blood pressure. We will be careful how much fluid to keep patient as patient with ejection fraction of 30% and global hypokinesis on echo. Qualifiers: Hypotension type: postprocedural hypotension Qualified Code(s): I95.81 - Postprocedural hypotension (8) Anemia Onset Date: 12/02/18 Current Visit: No Status: Acute Plan: Acute blood loss anemia on top of underline chronic anemia. -patient is status post 1 unit PRBC. Hemoglobin dropped to 7.9 on recheck today. Will go ahead and transfuse 1 more unit of PRBC. Will continue to monitor H&H Qualifiers: Anemia type: iron deficiency Iron deficiency anemia type: chronic blood loss Qualified Code(s): D50.0 - Iron deficiency anemia secondary to blood loss (chronic) (9) Acute kidney failure Current Visit: Yes Status: Acute Plan: Likely postop. Improving - continue to monitor - avoid nephrotoxic medications. - if worsens, will consult nephrology - Plan DVT prophylaxis: Lovenox GI prophylaxis: None Diet: Heart healthy Disposition: Social work on board for discharge planning, pending inpatient rehab consult.
[2019-06-14] MEDS: TRAMADOL HCL 50 MG TAB PO PRN (18:24)
[2019-06-14] MEDS ORDERED: NA CHLORIDE 0.9% 500 ML ONE (19:37)
[2019-06-14] MEDS: ATORVASTATIN 40 MG TAB PO SCH (22:24)
[2019-06-14] MEDS: HYDROCODONE/APAP 7.5/325 MG TAB PO PRN (22:26)
[2019-06-15] MEDS: TRAMADOL HCL 50 MG TAB PO PRN ×3 (00:42→17:40)
[2019-06-15] MEDS: LEVOTHYROXINE SOD 0.05 MG TABLET PO SCH (05:53)
[2019-06-15 05:56] LABS: Absolute Lymphocytes (CBC) 0.9 K/uL (0.7-4.9); Basophils % 1.1 % (0-1.3); Hematocrit 26.9 % (39.6-49.0); Lymphocytes % 14.8 % (15.3-44.8); MPV 9.7 fL (7.6-11.3); RBC Red Blood Cell Count 2.72 M/uL (4.33-5.43)
[2019-06-15 06:02] LABS: Albumin 2.7 g/dL (3.4-5.0); Bilirubin Total 1.5 mg/dL (0.2-1.0); Potassium 4.4 mmol/L (3.5-5.1); Protein, Total 5.2 g/dL (6.4-8.2)
[2019-06-15] MEDS: LISINOPRIL 5 MG TAB PO SCH (08:56)
[2019-06-15] MEDS: ALLOPURINOL 300 MG TAB PO SCH (08:56)
[2019-06-15] MEDS: ASPIRIN EC 81 MG TAB PO SCH (08:56)
[2019-06-15] MEDS: ISOSORBIDE MONO SR 30 MG TAB PO SCH (08:56)
[2019-06-15] MEDS: ZINC SULFATE 220 MG CAP PO SCH (08:56)
[2019-06-15] MEDS: ENOXAPARIN 40 MG/0.4 ML SQ SCH (08:57)
--- NOTE | 2019-06-15 11:58 | P.PN ---
Subjective Date of Service: 06/15/19 Chief Complaint: s/p IMN right hip Subjective: No C/O voiced Patient seen and examined at bedside. Cart reviewed and case discussed with Dr. Zapien and nursing staff. Patient is status post Cephalomedullary fixation of right intertrochanteric femur fracture (06/11/19), POD#3 Blood pressures remained low but stable overnight. He is asymptomatic. He states pain is well controlled. Sitting up in bed, and tolerating p.o. diet. Working with physical therapy today. Denies any complaints this morning Review of Systems 10-point ROS is otherwise unremarkable Physical Examination - Vital Signs Temperature: 97.9 F Blood Pressure: 101/59 Pulse: 79 Respirations: 16 Pulse Ox (%): 98 - Physical Exam General: Alert, In no apparent distress, Oriented x3 HEENT: Atraumatic, PERRLA, EOMI Neck: Supple, JVD not distended Respiratory: Clear to auscultation bilaterally, Normal air movement Cardiovascular: Regular rate/rhythm, Normal S1 S2 Gastrointestinal: Normal bowel sounds, No tenderness Musculoskeletal: No tenderness Integumentary: No rashes Neurological: Normal speech, Normal tone, Normal affect Lymphatics: No axilla or inguinal lymphadenopathy Assessment And Plan - Current Problems (Diagnosis) (1) Femoral neck fracture Current Visit: Yes Status: Acute Plan: Secondary to a mechanical fall. -Patient with femoral neck fracture, right hip, status post Cephalomedullary fixation of right intertrochanteric femur fracture (06/11/19), POD#3 -continue pain control as needed. -Orthopedics consultation, recommendations appreciated. -continue physical therapy -patient will need further physical therapy/rehab down the line. Social work consulted for discharge/disposition planning.Pending Rehab consult (2) Fall Current Visit: Yes Status: Acute (3) History of coronary artery disease Onset Date: 12/02/18 Current Visit: Yes Status: Acute Plan: Patient with a echo done in March of 2019, 33% ejection fraction with global hypokinesis. -cardiology cleared patient -Continue home medications as tolerated (4) COPD (chronic obstructive pulmonary disease) Current Visit: No Status: Acute Plan: Patient with a history of COPD, currently stable -will continue breathing treatments as needed (5) Colon cancer Onset Date: 12/02/18 Current Visit: No Status: Chronic (6) Hyperlipidemia Current Visit: No Status: Chronic (7) Hypotension Current Visit: Yes Status: Resolved Plan: Stable and asymptomatic. - continue to monitor blood pressure. We will be careful how much fluid to keep patient as patient with ejection fraction of 30% and global hypokinesis on echo. (8) Anemia Onset Date: 12/02/18 Current Visit: No Status: Acute Plan: Acute blood loss anemia on top of underline chronic anemia. -patient is status post 1 unit PRBC. Hemoglobin dropped to 7.9 on recheck today. Will go ahead and transfuse 1 more unit of PRBC. Will continue to monitor H&H (9) Acute kidney failure Current Visit: Yes Status: Acute Plan: Likely postop. Improving - continue to monitor - avoid nephrotoxic medications. - if worsens, will consult nephrology - Plan DVT prophylaxis: Lovenox GI prophylaxis: None Diet: Heart healthy Disposition: Social work on board for discharge planning, pending inpatient rehab consult.
[2019-06-15] MEDS ORDERED: NA CHLORIDE 0.9% 250 ML IV ONE (21:42)
[2019-06-15] MEDS: ATORVASTATIN 40 MG TAB PO SCH (21:59)
[2019-06-15 22:15] LABS: Hematocrit 26.3 % (39.6-49.0)
[2019-06-16] MEDS ORDERED: NA CHLORIDE 0.9% 250 ML ONE (01:03)
[2019-06-16] MEDS: HYDROCODONE/APAP 7.5/325 MG TAB PO PRN ×4 (01:26→20:30)
[2019-06-16] MEDS: LEVOTHYROXINE SOD 0.05 MG TABLET PO SCH (06:31)
[2019-06-16 06:43] LABS: Absolute Lymphocytes (CBC) 0.8 K/uL (0.7-4.9); Basophils % 2.2 % (0-1.3); Hematocrit 29.2 % (39.6-49.0); Lymphocytes % 13.9 % (15.3-44.8); MPV 8.7 fL (7.6-11.3); RBC Red Blood Cell Count 2.98 M/uL (4.33-5.43)
[2019-06-16 06:55] LABS: Magnesium 2.4 mg/dL (1.8-2.4); Phosphorus 4.2 mg/dL (2.5-4.9); Potassium 4.5 mmol/L (3.5-5.1)
[2019-06-16] MEDS: ASPIRIN EC 81 MG TAB PO SCH (08:43)
[2019-06-16] MEDS: ZINC SULFATE 220 MG CAP PO SCH (08:43)
[2019-06-16] MEDS: ALLOPURINOL 300 MG TAB PO SCH (08:43)
[2019-06-16] MEDS: ENOXAPARIN 40 MG/0.4 ML SQ SCH (08:44)
[2019-06-16] MEDS: ISOSORBIDE MONO SR 30 MG TAB PO SCH (08:44)
--- NOTE | 2019-06-16 10:19 | P.PN ---
Subjective Date of Service: 06/16/19 Chief Complaint: s/p IMN right hip Patient seen and examined at bedside. Cart reviewed and case discussed with Dr. Zapien and nursing staff. Patient is status post Cephalomedullary fixation of right intertrochanteric femur fracture (06/11/19), POD#3 Blood pressures remained low but stable overnight. He is asymptomatic. He states pain is well controlled. Sitting up in bed, and tolerating p.o. diet. Working with physical therapy today. Denies any complaints this morning Review of Systems 10-point ROS is otherwise unremarkable Physical Examination - Vital Signs Temperature: 97.8 F Blood Pressure: 95/61 Pulse: 83 Respirations: 18 Pulse Ox (%): 98 - Physical Exam General: Alert, In no apparent distress, Oriented x3 HEENT: Atraumatic, PERRLA, EOMI Neck: Supple, JVD not distended Respiratory: Clear to auscultation bilaterally, Normal air movement Cardiovascular: Regular rate/rhythm, Normal S1 S2 Gastrointestinal: Normal bowel sounds, No tenderness Musculoskeletal: No tenderness Integumentary: No rashes Neurological: Normal speech, Normal tone, Normal affect Lymphatics: No axilla or inguinal lymphadenopathy Assessment And Plan - Current Problems (Diagnosis) (1) Femoral neck fracture Current Visit: Yes Status: Acute Plan: Secondary to a mechanical fall. -Patient with femoral neck fracture, right hip, status post Cephalomedullary fixation of right intertrochanteric femur fracture (06/11/19), POD#5 -continue pain control as needed. -Orthopedics consultation, recommendations appreciated. -continue physical therapy -patient will need further physical therapy/rehab down the line. Social work consulted for discharge/disposition planning.Pending Rehab consult Qualifiers: Encounter type: initial encounter Fracture type: closed Laterality: right Qualified Code(s): S72.001A - Fracture of unspecified part of neck of right femur, initial encounter for closed fracture (2) Fall Current Visit: Yes Status: Acute Qualifiers: Encounter type: initial encounter Qualified Code(s): W19.XXXA - Unspecified fall, initial encounter (3) History of coronary artery disease Onset Date: 12/02/18 Current Visit: Yes Status: Acute Plan: Patient with a echo done in March of 2019, 33% ejection fraction with global hypokinesis. -cardiology cleared patient -Continue home medications as tolerated (4) COPD (chronic obstructive pulmonary disease) Current Visit: No Status: Acute Plan: Patient with a history of COPD, currently stable -will continue breathing treatments as needed Qualifiers: COPD type: unspecified COPD Qualified Code(s): J44.9 - Chronic obstructive pulmonary disease, unspecified (5) Colon cancer Onset Date: 12/02/18 Current Visit: No Status: Chronic Qualifiers: Colon location: unspecified part of colon (6) Hyperlipidemia Current Visit: No Status: Chronic Qualifiers: Hyperlipidemia type: unspecified Qualified Code(s): E78.5 - Hyperlipidemia , unspecified (7) Hypotension Current Visit: Yes Status: Resolved Plan: Stable and asymptomatic. - continue to monitor blood pressure. We will be careful how much fluid to keep patient as patient with ejection fraction of 30% and global hypokinesis on echo. Qualifiers: Hypotension type: postprocedural hypotension Qualified Code(s): I95.81 - Postprocedural hypotension (8) Anemia Onset Date: 12/02/18 Current Visit: No Status: Acute Plan: Acute blood loss anemia on top of underline chronic anemia. -patient is status post 3 unit PRBC this hospitalization. H&H stable today. Will continue to monitor H&H Qualifiers: Anemia type: iron deficiency Iron deficiency anemia type: chronic blood loss Qualified Code(s): D50.0 - Iron deficiency anemia secondary to blood loss (chronic) (9) Acute kidney failure Current Visit: Yes Status: Acute Plan: Likely postop. Resolved, creatinine normalized - continue to monitor - avoid nephrotoxic medications. - Plan DVT prophylaxis: Lovenox GI prophylaxis: None Diet: Heart healthy Disposition: Social work on board for discharge planning, pending inpatient rehab consult.
[2019-06-16] MEDS: ATORVASTATIN 40 MG TAB PO SCH (20:30)
--- NOTE | 2019-06-16 20:46 | P.PN ---
Subjective Date of Service: 06/16/19 Chief Complaint: s/p IMN right hip Subjective: Ambulating, Improving, Working w/ PT pain controlled; improving with PT Physical Examination - Vital Signs Temperature: 98.3 F Blood Pressure: 99/61 Pulse: 85 Respirations: 18 Pulse Ox (%): 96 - Physical Exam General: Alert, In no apparent distress Musculoskeletal: Other (RLE: mild sanguionous drainage on the dressing; NVI distally) Assessment And Plan - Plan Gautam is an 79 yo male s/p right hip nailing POD#5 -acute expected postoperative blood loss anemia on top of chronic anemia; H/H stable after transfusion -PT to mobilize; WBAT RLE -lovenox for DVT prophylaxis -rehab consult to evaluate for inpatient rehab placement
[2019-06-17] MEDS: HYDROCODONE/APAP 7.5/325 MG TAB PO PRN ×2 (00:47→09:06)
[2019-06-17] MEDS: LEVOTHYROXINE SOD 0.05 MG TABLET PO SCH (05:57)
[2019-06-17] MEDS: ENOXAPARIN 40 MG/0.4 ML SQ SCH (09:00)
[2019-06-17] MEDS: ISOSORBIDE MONO SR 30 MG TAB PO SCH (09:00)
[2019-06-17] MEDS: ASPIRIN EC 81 MG TAB PO SCH (09:06)
[2019-06-17] MEDS: ALLOPURINOL 300 MG TAB PO SCH (09:06)
[2019-06-17] MEDS: ZINC SULFATE 220 MG CAP PO SCH (09:06)
[2019-06-17 12:08] VITALS: O2SAT 95
--- NOTE | 2019-06-17 12:09 | P.PN ---
Subjective Date of Service: 06/17/19 Chief Complaint: s/p IMN right hip Subjective: Ambulating, Improving, Working w/ PT pain controlled; ambulating with some pain with PT Physical Examination - Vital Signs Temperature: 97.8 F Blood Pressure: 92/55 Pulse: 77 Respirations: 16 Pulse Ox (%): 95 - Physical Exam General: Alert, In no apparent distress Musculoskeletal: Other (RLE: incision c/d/i; mild ecchymoses surrounding incisions without active bleeding; NVI distally) Assessment And Plan - Plan Gautam is an 79 yo male s/p right hip nailing POD#6 -H/H stable -PT to mobilize; WBAT RLE -lovenox for DVT prophylaxis -possible inpatient rehab placement today
[2019-06-17 16:22] VITALS: BP 104/66; TEMP 98.1
--- NOTE | 2019-06-18 06:18 | DS ---
Date of Discharge: 06/17/2019 Consultants: Sam Zapien MD with Orthopedic Surgery; Isidoro Toledo MD with Cardiology; and Porfirio Mullins MD with Cardiology. Procedures: On 06/11/[address] Zapien, right intertrochanteric femur fracture, ORIF. Code status: Full Admitting Diagnoses: 1. Femoral neck fracture on the right, initial encounter, closed. 2. Status post mechanical fall. 3. Coronary artery disease, [place] artery and [place] heart without angina. 4. Systolic congestive heart failure, ejection fraction 33%. 5. Chronic obstructive pulmonary disease chronic bronchitis. 6. History of colon cancer. 7. Mixed hyperlipidemia. Discharge Diagnoses: 1. Femoral neck fracture secondary to mechanical fall, right hip, status post cephalomedullary fixation of right the intertrochanteric femur fracture, closed fracture. 2. Status post mechanical fall. 3. Coronary artery disease [place] artery and [place] heart without angina. 4. Systolic heart failure, chronic, EF 33%. 5. Chronic obstructive pulmonary disease chronic bronchitis. 6. History of colon cancer. 7. Mixed hyperlipidemia, stable. 8. Hypertension, improved. 9. Acute blood loss anemia, status post 3 units PRBCs secondary to iron deficiency and hip fracture. 10. Acute kidney injury, resolved. Hospital Course: Patient is an 79-year-old male with multiple comorbid conditions including hypertension, heart disease, hyperlipidemia, COPD, colon cancer, status post colostomy, admitted for right femoral neck fracture after fall. Patient had a mechanical fall. There was no syncopal episode or seizure- type episode. Patient was admitted to the hospital for further workup. Dr. Zapien with Orthopedics was consulted. The patient required cardiac clearance prior to surgery. His imaging studies had found a closed femoral neck fracture. His recent echocardiogram from March of 2019, showed an EF of 33%. Patient was then cleared from a Cardiology standpoint for the procedure. Patient did well postoperatively, did have some acute on chronic blood loss anemia. He required a blood transfusion 3 units of PRBCs total while in the hospital. Hemoglobin is now stable. He also had some acute kidney injury likely related to dehydration, which improved with hydration. Overall, patient did well. He was initially referred to rehab, but was denied after peer-to- peer being done by Dr. Macias, hospitalist, rehab was then approved, and patient was discharged in a stable condition. Activity: As per rehab. Medications: As per medication reconciliation list. Followup: Follow up with primary care physician in 10-14 days. Follow up with orthopedic surgeon Dr. Zapien per his recommendation in 2 weeks for wound check. Return to ER for worsening condition. Physical Examination: General: Awake, alert, oriented, elderly male. CV: S1, S2. Respiratory: Moving air well bilaterally. Abdomen: Abdomen is soft, nontender, nondistended. Positive bowel sounds. Extremities: No clubbing, cyanosis, or edema. Neurologic: Nonfocal. Skin: Right hip incision site clean, dry, and intact. Time: Total time spent discharging patient was 39 minutes. FELIPE Voice ID: [id number] Report ID: [id number]
== END 2019-06-17 17:02 | DRG 481 ==
LOC: ER 11:35 → ERHOLD 14:09 → 2ND 15:04 → 3RD-ICU 06-11 15:02 → 4TH 06-12 14:15
PROVIDERS: ADMIT Family Medicine; ATTEND Family Medicine
PROC: 0QS636Z Reposition Right Upper Femur with Intramedullary Internal Fixation Device, Percutaneous Approach (ICD-10-PCS; principal; 2019-06-11 11:00)
PROC: 30233N1 Transfusion of Nonautologous Red Blood Cells into Peripheral Vein, Percutaneous Approach (ICD-10-PCS; 2019-06-12)
DX: S72.141A Displaced intertrochanteric fracture of right femur, initial encounter for closed fracture (principal); D62 Acute posthemorrhagic anemia; N17.9 Acute kidney failure, unspecified; I50.22 Chronic systolic (congestive) heart failure; W19.XXXA Unspecified fall, initial encounter; I25.10 Atherosclerotic heart disease of native coronary artery without angina pectoris; E78.2 Mixed hyperlipidemia; J44.9 Chronic obstructive pulmonary disease, unspecified; Z93.3 Colostomy status; I11.0 Hypertensive heart disease with heart failure; I95.81 Postprocedural hypotension; E86.0 Dehydration; D50.0 Iron deficiency anemia secondary to blood loss (chronic); I25.2 Old myocardial infarction; Z87.891 Personal history of nicotine dependence; Z85.038 Personal history of other malignant neoplasm of large intestine; Z95.5 Presence of coronary angioplasty implant and graft
CPT/HCPCS: 36415; 36430; 71045; 72170; 72192; 73530; 80048; 80053; 82533; 82962; 83735; 84100; 84484; 85014; 85018; 85025; 85610; 85730; 86850; 86900; 86901; 93005; 94760; 96374; 96375; 97110; 97112; 97116; 97161; 97530; 99285; J0690; J1650; J2175; J2250; J2270; J2405; J2704; J3010; J3475; J7030; P9016

== ENCOUNTER 2019-06-17 12:19 | Inpatient (IN) | payer OTHER ==
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
--- OUTSIDE RECORDS SUMMARY | 2019-06-17 17:10 | XMS REPORT | Clinical Summary ---
:1940 Author Organization [facility] Address [address] [place] [address] Care Team Providers Name Role Phone Jaspal [...] Cardiology MD Pieter LV GRAM WITH CORS [[id number] (CPT)] 01/10/2019 - Hospital Encounter Neurosurgery Nayely Flood Anemia due to acute blood loss (Primary Dx); 01/23/2019 MD Joaquin Orozco; Coronary artery disease without angina pectoris, unspecified vessel or lesion type, unspecified whether [place] or transplanted heart; Pulmonary hypertension (HCC) 01/09/2019 Intake Access N/A 12/02/2018 Intake Access N/A 11/22/2018 Anesthesia Event General Surgery Kassidy Hansen, OIL AND GAS RECRUITER 11/22/2018 Surgery General Surgery Jonn Mora DIAGNOSTIC MD Toño LAPAROSCOPY, REVISION OF ANASTOMOSIS, DRAINAGE OF HEMATOMA 11/21/2018 Anesthesia Event General Surgery Shanna Machado, CARPENTER'S HELPER 11/21/2018 Surgery General Surgery Jonn Mora SINGLE [...] of ascending colon (HCC) (Primary Dx) after 06/16/2018 Family History Medical History Relation Name Comments [...] (155 lb 6.8 oz) 01/10/2019 3:00 AM CULINARY WORKER Height 185.4 cm (6' 1") 01/10/2019 3:00 AM CULINARY WORKER Body Mass Index 20.51 01/10/2019 3:00 AM CULINARY WORKER Plan of Treatment Health Maintenance Due [...] vessel section. or lesion type, unspecified whether [place] or transplanted heart Pulmonary hypertension (HCC) ESTIMATED [...] Routine 01/18/2019 5:28 Results for this PM CULINARY WORKER procedure are in the results section. POC GLUCOSE Routine 01/18/2019 11:48 Results for this AM CULINARY WORKER procedure are in the results section. POC GLUCOSE Routine 01/18/2019 7:40 Results for this AM CULINARY WORKER procedure are in the results section. ESTIMATED GFR Routine 01/18/2019 4:52 Results for this AM CULINARY WORKER procedure are in the results section. PARTIAL THROMBOPLASTIN Routine 01/18/2019 4:52 Results for this TIME (PTT) AM CULINARY WORKER procedure are in the results section. PROTHROMBIN TIME WITH Routine 01/18/2019 4:52 Results for this INR AM CULINARY WORKER procedure are in the results section. COMPREHENSIVE METABOLIC Routine 01/18/2019 4:52 Results for this PANEL AM CULINARY WORKER procedure are in the results section. B NATRIURETIC PEPTIDE Routine 01/18/2019 4:52 Results for this AM CULINARY WORKER procedure are in the results section. POC GLUCOSE Routine 01/17/2019 9:31 Results for this PM CULINARY WORKER procedure are in the results section. HC COMPLETE BLD COUNT Routine 01/17/2019 4:40 Results for this W/AUTO DIFF AM CULINARY WORKER procedure are in the results section. ESTIMATED GFR Routine 01/17/2019 4:00 Results for this AM CULINARY WORKER procedure are in the results section. MAGNESIUM LEVEL Routine 01/17/2019 4:00 Results for this AM CULINARY WORKER procedure are in the results section. BASIC METABOLIC PANEL Routine 01/17/2019 4:00 Results for this AM CULINARY WORKER procedure are in the results section. CONSULT TO OSTOMY CARE Routine 01/16/2019 4:32 NURSE PM CULINARY WORKER ECHOCARDIOGRAM 2D Routine 01/16/2019 12:25 Results for this LIMITED PM CULINARY WORKER procedure are in the results section. B NATRIURETIC PEPTIDE Routine 01/16/2019 6:05 Results for this AM CULINARY WORKER procedure are in the results section. ESTIMATED GFR Routine 01/16/2019 4:00 Results for this AM CULINARY WORKER procedure are in the results section. BASIC METABOLIC PANEL Routine 01/16/2019 4:00 Results for this AM CULINARY WORKER procedure are in the results section. MAGNESIUM LEVEL Routine 01/16/2019 4:00 Results for this AM CULINARY WORKER procedure are in the results section. VANCOMYCIN LEVEL, TROUGH Routine 01/16/2019 4:00 Results for this AM CULINARY WORKER procedure are in the results section. POC GLUCOSE Routine 01/15/2019 5:53 Results for this PM CULINARY WORKER procedure are in the results section. POC GLUCOSE Routine 01/15/2019 12:02 Results for this PM CULINARY WORKER procedure are in the results section. ECG 12-LEAD Routine 01/15/2019 8:20 Results for this AM CULINARY WORKER procedure are in the results section. POC GLUCOSE Routine 01/15/2019 7:58 Results for this AM CULINARY WORKER procedure are in the results section. ESTIMATED GFR Routine 01/15/2019 5:10 Results for this AM CULINARY WORKER procedure are in the results section. MAGNESIUM LEVEL Routine 01/15/2019 5:10 Results for this AM CULINARY WORKER procedure are in the results section. BASIC METABOLIC PANEL Routine 01/15/2019 5:10 Results for this AM CULINARY WORKER procedure are in the results section. POC GLUCOSE Routine 01/14/2019 8:53 Results for this PM CULINARY WORKER procedure are in the results section. POC GLUCOSE Routine 01/14/2019 5:43 Results for this PM CULINARY WORKER procedure are in the results section. POC GLUCOSE Routine 01/14/2019 11:59 Results for this AM CULINARY WORKER procedure are in the results section. VANCOMYCIN LEVEL, TROUGH Routine 01/14/2019 11:05 Results for this AM CULINARY WORKER procedure are in the results section. GRAM STAIN Routine 01/14/2019 11:05 Results for this AM CULINARY WORKER procedure are in the results section. AEROBIC CULTURE Routine 01/14/2019 11:05 Results for this AM CULINARY WORKER procedure are in the results section. ANAEROBIC CULTURE Routine 01/14/2019 10:05 Results for this AM CULINARY WORKER procedure are in the results section. POC GLUCOSE Routine 01/14/2019 7:59 Results for this AM CULINARY WORKER procedure are in the results section. B NATRIURETIC PEPTIDE Routine 01/14/2019 5:00 Results for this AM CULINARY WORKER procedure are in the results section. HC COMPLETE BLD COUNT Routine 01/14/2019 5:00 Results for this W/AUTO DIFF AM CULINARY WORKER procedure are in the results section. ESTIMATED GFR Routine 01/14/2019 4:00 Results for this AM CULINARY WORKER procedure are in the results section. BASIC METABOLIC PANEL Routine 01/14/2019 4:00 Results for this AM CULINARY WORKER procedure are in the results section. HIV AG/AB COMBINATION Routine 01/14/2019 4:00 Results for this AM CULINARY WORKER procedure are in the results section. POC GLUCOSE Routine 01/13/2019 8:40 Results for this PM CULINARY WORKER procedure are in the results section. POC GLUCOSE Routine 01/13/2019 6:02 Results for this PM CULINARY WORKER procedure are in the results section. POC GLUCOSE Routine 01/13/2019 12:16 Results for this PM CULINARY WORKER procedure are in the results section. US CAROTID DUPLEX Routine 01/13/2019 9:45 Results for this BILATERAL AM CULINARY WORKER procedure are in the results section. POC GLUCOSE Routine 01/13/2019 7:51 Results for this AM CULINARY WORKER procedure are in the results section. ESTIMATED GFR Routine 01/13/2019 3:30 Results for this AM CULINARY WORKER procedure are in the results section. VITAMIN B12 LEVEL Routine 01/13/2019 3:30 Results for this AM CULINARY WORKER procedure are in the results section. TOTAL IRON BINDING Routine 01/13/2019 3:30 Results for this CAPACITY AM CULINARY WORKER procedure are in the results section. RETICULOCYTE COUNT Routine 01/13/2019 3:30 Results for this AM CULINARY WORKER procedure are in the results section. FOLATE LEVEL Routine 01/13/2019 3:30 Results for this AM CULINARY WORKER procedure are in the results section. PHOSPHORUS LEVEL Routine 01/13/2019 3:30 Results for this AM CULINARY WORKER procedure are in the results section. MAGNESIUM LEVEL Routine 01/13/2019 3:30 Results for this AM CULINARY WORKER procedure are in the results section. CBC WITH PLATELET AND Routine 01/13/2019 3:30 Results for this DIFFERENTIAL AM CULINARY WORKER procedure are in the results section. BASIC METABOLIC PANEL Routine 01/13/2019 3:30 Results for this AM CULINARY WORKER procedure are in the results section. POC GLUCOSE Routine 01/12/2019 8:54 Results for this PM CULINARY WORKER procedure are in the results section. ESTIMATED GFR Timed 01/12/2019 7:30 Results for this PM CULINARY WORKER procedure are in the results section. MAGNESIUM LEVEL Timed 01/12/2019 7:30 Results for this PM CULINARY WORKER procedure are in the results section. BASIC METABOLIC PANEL Timed 01/12/2019 7:30 Results for this PM CULINARY WORKER procedure are in the results section. POC GLUCOSE Routine 01/12/2019 12:13 Results for this PM CULINARY WORKER procedure are in the results section. POC GLUCOSE Routine 01/12/2019 8:05 Results for this AM CULINARY WORKER procedure are in the results section. ESTIMATED GFR Routine 01/12/2019 5:50 Results for this AM CULINARY WORKER procedure are in the results section. COMPREHENSIVE METABOLIC Routine 01/12/2019 5:50 Results for this PANEL AM CULINARY WORKER procedure are in the results section. HC COMPLETE BLD COUNT Routine 01/12/2019 5:50 Results for this W/AUTO DIFF AM CULINARY WORKER procedure are in the results section. T3, FREE Routine 01/12/2019 5:50 Results for this AM CULINARY WORKER procedure are in the results section. T4, FREE Routine 01/12/2019 5:50 Results for this AM CULINARY WORKER procedure are in the results section. THYROID STIMULATING Routine 01/12/2019 5:50 Results for this HORMONE AM CULINARY WORKER procedure are in the results section. CORTISOL LEVEL, AM Routine 01/12/2019 5:50 Results for this AM CULINARY WORKER procedure are in the results section. POC GLUCOSE Routine 01/11/2019 9:13 Results for this PM CULINARY WORKER procedure are in the results section. POC GLUCOSE Routine 01/11/2019 4:58 Results for this PM CULINARY WORKER procedure are in the results section. THYROID PEROXIDASE Routine 01/11/2019 1:10 Results for this ANTIBODY PM CULINARY WORKER procedure are in the results section. POC GLUCOSE Routine 01/11/2019 12:25 Results for this PM CULINARY WORKER procedure are in the results section. ECG 12-LEAD Routine 01/11/2019 11:15 Results for this AM CULINARY WORKER procedure are in the results section. POC GLUCOSE Routine 01/11/2019 7:45 Results for this AM CULINARY WORKER procedure are in the results section. ESTIMATED GFR Routine 01/11/2019 3:30 Results for this AM CULINARY WORKER procedure are in the results section. IONIZED CALCIUM Routine 01/11/2019 3:30 Results for this AM CULINARY WORKER procedure are in the results section. PHOSPHORUS LEVEL Routine 01/11/2019 3:30 Results for this AM CULINARY WORKER procedure are in the results section. MAGNESIUM LEVEL Routine 01/11/2019 3:30 Results for this AM CULINARY WORKER procedure are in the results section. HEPATIC FUNCTION PANEL Routine 01/11/2019 3:30 Results for this AM CULINARY WORKER procedure are in the results section. HC COMPLETE BLD COUNT Routine 01/11/2019 3:30 Results for this W/AUTO DIFF AM CULINARY WORKER procedure are in the results section. BASIC METABOLIC PANEL Routine 01/11/2019 3:30 Results for this AM CULINARY WORKER procedure are in the results section. POC GLUCOSE Routine 01/11/2019 1:06 Results for this AM CULINARY WORKER procedure are in the results section. POC GLUCOSE Routine 01/10/2019 8:35 Results for this PM CULINARY WORKER procedure are in the results section. TROPONIN Timed 01/10/2019 8:10 Results for this PM CULINARY WORKER procedure are in the results section. HEMOGLOBIN & HEMATOCRIT Timed 01/10/2019 8:10 Results for this PM CULINARY WORKER procedure are in the results section. POC GLUCOSE Routine 01/10/2019 5:19 Results for this PM CULINARY WORKER procedure are in the results section. THYROID STIMULATING Routine 01/10/2019 5:16 Results for this HORMONE PM CULINARY WORKER procedure are in the results section. HEPATITIS ACUTE PANEL Routine 01/10/2019 5:16 Results for this PM CULINARY WORKER procedure are in the results section. T4 Routine 01/10/2019 5:16 Results for this PM CULINARY WORKER procedure are in the results section. CONSULT TO OSTOMY CARE Routine 01/10/2019 4:47 NURSE PM CULINARY WORKER TROPONIN Routine 01/10/2019 1:06 Results for this PM CULINARY WORKER procedure are in the results section. HEMOGLOBIN & HEMATOCRIT STAT 01/10/2019 12:15 Results for this PM CULINARY WORKER procedure are in the results section. LACTIC ACID LEVEL, Timed 01/10/2019 12:15 Results for this SEPSIS - NOW AND REPEAT PM CULINARY WORKER procedure are in 2X EVERY 3 HOURS the results section. CREATININE LEVEL, URINE, Routine 01/10/2019 12:12 Results for this RANDOM PM CULINARY WORKER procedure are in the results section. SODIUM LEVEL, URINE, Routine 01/10/2019 12:12 Results for this RANDOM PM CULINARY WORKER procedure are in the results section. POC GLUCOSE Routine 01/10/2019 12:01 Results for this PM CULINARY WORKER procedure are in the results section. ECG 12-LEAD Routine 01/10/2019 11:33 Results for this AM CULINARY WORKER procedure are in the results section. CT HEAD WO CONTRAST STAT 01/10/2019 11:23 Results for this AM CULINARY WORKER procedure are in the results section. CT ABDOMEN PELVIS WO STAT 01/10/2019 11:23 Results for this CONTRAST AM CULINARY WORKER procedure are in the results section. XR PICC CHEST PORTABLE Routine 01/10/2019 11:00 [place] Results for this AM CULINARY WORKER procedure are in the results section. HC CATH DUAL LUMEN PICC Routine 01/10/2019 9:58 Results for this AM CULINARY WORKER procedure are in the results section. HC US GUIDED VASCULAR Routine 01/10/2019 9:58 Results for this ACCESS AM CULINARY WORKER procedure are in the results section. HC CVL PICC INSERT 5 YRS Routine 01/10/2019 9:58 Results for this OR > W/O IMG GUID AM CULINARY WORKER procedure are in the results section. LACTIC ACID LEVEL, Timed 01/10/2019 9:14 Results for this SEPSIS - NOW AND REPEAT AM CULINARY WORKER procedure are in 2X EVERY 3 HOURS the results section. POC GLUCOSE Routine 01/10/2019 8:33 Results for this AM CULINARY WORKER procedure are in the results section. URINE CULTURE Routine 01/10/2019 7:31 Results for this AM CULINARY WORKER procedure are in the results section. URINALYSIS SCREEN AND Routine 01/10/2019 7:24 Results for this MICROSCOPY, WITH REFLEX AM CULINARY WORKER procedure are in TO CULTURE the results section. XR ABDOMEN 1 VW PORTABLE Routine 01/10/2019 6:53 Results for this AM CULINARY WORKER procedure are in the results section. XR CHEST 1 VW PORTABLE STAT 01/10/2019 6:53 Results for this AM CULINARY WORKER procedure are in the results section. LACTIC ACID LEVEL, Timed 01/10/2019 6:45 Results for this SEPSIS - NOW AND REPEAT AM CULINARY WORKER procedure are in 2X EVERY 3 HOURS the results section. ECHOCARDIOGRAM 2D STAT 01/10/2019 6:28 Results for this COMPLETE W MMODE AM CULINARY WORKER procedure are in SPECTRAL COLOR DOPPLER the results (62251) section. POC GLUCOSE Routine 01/10/2019 4:27 Results for this AM CULINARY WORKER procedure are in the results section. ESTIMATED GFR STAT 01/10/2019 3:45 Results for this AM CULINARY WORKER procedure are in the results section. CREATINE KINASE, TOTAL STAT 01/10/2019 3:45 Results for this (CPK) AM CULINARY WORKER procedure are in the results section. TYPE AND SCREEN STAT 01/10/2019 3:45 Results for this AM CULINARY WORKER procedure are in the results section. B NATRIURETIC PEPTIDE STAT 01/10/2019 3:45 Results for this AM CULINARY WORKER procedure are in the results section. TROPONIN STAT 01/10/2019 3:45 Results for this AM CULINARY WORKER procedure are in the results section. PROTHROMBIN TIME WITH STAT 01/10/2019 3:45 Results for this INR AM CULINARY WORKER procedure are in the results section. PHOSPHORUS LEVEL STAT 01/10/2019 3:45 Results for this AM CULINARY WORKER procedure are in the results section. PARTIAL THROMBOPLASTIN STAT 01/10/2019 3:45 Results for this TIME (PTT) AM CULINARY WORKER procedure are in the results section. MAGNESIUM LEVEL STAT 01/10/2019 3:45 Results for this AM CULINARY WORKER procedure are in the results section. LIPASE LEVEL STAT 01/10/2019 3:45 Results for this AM CULINARY WORKER procedure are in the results section. LACTIC ACID LEVEL STAT 01/10/2019 3:45 Results for this AM CULINARY WORKER procedure are in the results section. IONIZED CALCIUM STAT 01/10/2019 3:45 Results for this AM CULINARY WORKER procedure are in the results section. HEPATIC FUNCTION PANEL STAT 01/10/2019 3:45 Results for this AM CULINARY WORKER procedure are in the results section. FIBRINOGEN STAT 01/10/2019 3:45 Results for this AM CULINARY WORKER procedure are in the results section. D-DIMER STAT 01/10/2019 3:45 Results for this AM CULINARY WORKER procedure are in the results section. COMPREHENSIVE METABOLIC STAT 01/10/2019 3:45 Results for this PANEL AM CULINARY WORKER procedure are in the results section. HC COMPLETE BLD COUNT STAT 01/10/2019 3:45 Results for this W/AUTO DIFF AM CULINARY WORKER procedure are in the results section. AMYLASE LEVEL STAT 01/10/2019 3:45 Results for this AM CULINARY WORKER procedure are in the results section. GASTROINTESTINAL PANEL Routine 01/10/2019 3:45 Results for this AM CULINARY WORKER procedure are in the results section. GRAM STAIN Routine 01/10/2019 3:45 Results for this AM CULINARY WORKER procedure are in the results section. ANAEROBIC CULTURE Routine 01/10/2019 3:45 Results for this AM CULINARY WORKER procedure are in the results section. AEROBIC CULTURE Routine 01/10/2019 3:45 Results for this AM CULINARY WORKER procedure are in the results section. OCCULT BLOOD, STOOL Routine 01/10/2019 3:45 Results for this AM CULINARY WORKER procedure are in the results section. BLOOD CULTURE, AEROBIC & Routine 01/10/2019 3:45 Results for this ANAEROBIC AM CULINARY WORKER procedure are in the results section. RESPIRATORY PATHOGEN Routine 01/10/2019 3:45 Results for this PANEL AM CULINARY WORKER procedure are in the results section. POC GLUCOSE Routine 01/10/2019 3:12 Results for this AM CULINARY WORKER procedure are in the results section. ECG 12-LEAD STAT 01/10/2019 2:51 Results for this AM CULINARY WORKER procedure are in the results section. ESTIMATED GFR Routine 11/26/2018 5:38 Results for this AM CULINARY WORKER procedure are in the results section. HEMOGLOBIN & HEMATOCRIT Routine 11/26/2018 5:38 Results for this AM CULINARY WORKER procedure are in the results section. BASIC METABOLIC PANEL Routine 11/26/2018 5:38 Results for this AM CULINARY WORKER procedure are in the results section. ESTIMATED GFR Routine 11/25/2018 9:03 Results for this AM CULINARY WORKER procedure are in the results section. BASIC METABOLIC PANEL Routine 11/25/2018 9:03 Results for this AM CULINARY WORKER procedure are in the results section. HC COMPLETE BLD COUNT Routine 11/25/2018 7:30 Results for this W/AUTO DIFF AM CULINARY WORKER procedure are in the results section. ESTIMATED GFR Routine 11/24/2018 4:05 Results for this AM CULINARY WORKER procedure are in the results section. PHOSPHORUS LEVEL Routine 11/24/2018 4:05 Results for this AM CULINARY WORKER procedure are in the results section. MAGNESIUM LEVEL Routine 11/24/2018 4:05 Results for this AM CULINARY WORKER procedure are in the results section. BASIC METABOLIC PANEL Routine 11/24/2018 4:05 Results for this AM CULINARY WORKER procedure are in the results section. HC COMPLETE BLD COUNT Routine 11/24/2018 4:05 Results for this W/AUTO DIFF AM CULINARY WORKER procedure are in the results section. HEMOGLOBIN & HEMATOCRIT Timed 11/23/2018 3:00 Results for this PM CULINARY WORKER procedure are in the results section. HC COMPLETE BLD COUNT Routine 11/23/2018 4:05 Results for this W/AUTO DIFF AM CULINARY WORKER procedure are in the results section. ESTIMATED GFR Routine 11/23/2018 4:00 Results for this AM CULINARY WORKER procedure are in the results section. PHOSPHORUS LEVEL Routine 11/23/2018 4:00 Results for this AM CULINARY WORKER procedure are in the results section. MAGNESIUM LEVEL Routine 11/23/2018 4:00 Results for this AM CULINARY WORKER procedure are in the results section. BASIC METABOLIC PANEL Routine 11/23/2018 4:00 Results for this AM CULINARY WORKER procedure are in the results section. HC COMPLETE BLD COUNT Timed 11/22/2018 9:15 Results for this W/AUTO DIFF PM CULINARY WORKER procedure are in the results section. ESTIMATED GFR Timed 11/22/2018 8:00 Results for this PM CULINARY WORKER procedure are in the results section. BASIC METABOLIC PANEL Timed 11/22/2018 8:00 Results for this PM CULINARY WORKER procedure are in the results section. SURGICAL PATHOLOGY Routine 11/22/2018 5:30 Results for this REQUEST PM CULINARY WORKER procedure are in the results section. TRANSFUSE RED BLOOD Routine 11/22/2018 5:20 CELLS PM CULINARY WORKER TRANSFUSE RED BLOOD STAT 11/22/2018 4:09 CELLS PM CULINARY WORKER OK AN EMERGENT Routine 11/22/2018 3:52 ENDOTRACHEAL AIRWAY PM CULINARY WORKER Procedure Note - Kassidy Hansen CRNA - 11/22/2018 3:52 PM CULINARY WORKER ANESTHESIA INTUBATION Date/Time: 11/22/2018 3:25 PM Performed by: Kassidy Hansen CRNA Authorized by: Felipe Trejo MD Location: OR Urgency: Emergent Difficult Airway: No Anesthesiologist: Rodrigo Oates MD Resident/OIL AND GAS RECRUITER/AA: Kassidy Hansen CRNA Performed by: resident/OIL AND GAS RECRUITER/AA Consent Cannot be Obtained Due to Urgency: [...] SUCCESSFULL SIGMOIDECTOMY, 11/22/2018 2:50 PM bleeding LAPAROSCOPIC CULINARY WORKER ESTIMATED GFR Timed 11/22/2018 12:15 PM Results for this CULINARY WORKER procedure are in the results section. HC COMPLETE BLD COUNT Timed 11/22/2018 12:15 PM Results for this W/AUTO DIFF CULINARY WORKER procedure are in the results section. PHOSPHORUS LEVEL Timed 11/22/2018 12:15 PM Results for this CULINARY WORKER procedure are in the results section. BASIC METABOLIC PANEL Timed 11/22/2018 12:15 PM Results for this CULINARY WORKER procedure are in the results section. ESTIMATED GFR Routine 11/22/2018 3:40 AM Results for this CULINARY WORKER procedure are in the results section. PHOSPHORUS LEVEL Routine 11/22/2018 3:40 AM Results for this CULINARY WORKER procedure are in the results section. MAGNESIUM LEVEL Routine 11/22/2018 3:40 AM Results for this CULINARY WORKER procedure are in the results section. BASIC METABOLIC PANEL Routine 11/22/2018 3:40 AM Results for this CULINARY WORKER procedure are in the results section. HC COMPLETE BLD COUNT Routine 11/22/2018 3:00 AM Results for this W/AUTO DIFF CULINARY WORKER procedure are in the results section. SURGICAL PATHOLOGY REQUEST Routine 11/21/2018 1:12 PM Results for this CULINARY WORKER procedure are in the results section. OK AN ELECTIVE Routine 11/21/2018 8:35 AM ENDOTRACHEAL AIRWAY CULINARY WORKER Procedure Note - Yaima Krause CRNA - 11/21/2018 8:35 AM CULINARY WORKER Airway Date/Time: 11/21/2018 8:02 AM Performed [...] easily. MAGNESIUM LEVEL STAT 11/21/2018 8:25 AM CULINARY WORKER IONIZED CALCIUM, ARTERIAL STAT 11/21/2018 8:25 AM CULINARY WORKER GLUCOSE LEVEL, SYRINGE STAT 11/21/2018 8:25 AM CULINARY WORKER HEMOGLOBIN, SYRINGE STAT 11/21/2018 8:25 AM CULINARY WORKER POTASSIUM, SYRINGE STAT 11/21/2018 8:25 AM CULINARY WORKER SODIUM LEVEL, SYRINGE STAT 11/21/2018 8:25 AM CULINARY WORKER ARTERIAL BLOOD GAS STAT 11/21/2018 8:25 AM CULINARY WORKER LACTIC ACID, SYRINGE STAT 11/21/2018 8:25 AM CULINARY WORKER ARTERIAL LINE Routine 11/21/2018 8:14 AM CULINARY WORKER Procedure Note - Felipe Trejo MD - 11/21/2018 8:14 AM CULINARY WORKER Arterial line Performed by: Felipe Trejo [...] immediate complications COLECTOMY, PARTIAL, 11/21/2018 7:30 AM CULINARY WORKER Cancer of ascending colon LAPAROSCOPIC (HCC) Special Needs EST 2 HRS, TF~1400, REQ 1200 START ECG PRE/POST OP Routine 11/15/2018 1:02 PM Preop testing Results for this CULINARY WORKER procedure are in the results section. CARCINOEMBRYONIC ANTIGEN Routine 11/15/2018 12:52 PM Preop testing Results for this (CEA) CULINARY WORKER procedure are in the results section. PREPARE RBC Routine 11/15/2018 12:43 PM Results for this CULINARY WORKER procedure are in the results section. PREPARE RBC Routine 11/15/2018 12:43 PM Results for this CULINARY WORKER procedure are in the results section. TYPE AND SCREEN Routine 11/15/2018 12:43 PM Preop testing Results for this CULINARY WORKER procedure are in the results section. ESTIMATED GFR Routine 10/24/2018 1:36 PM Results for this CULINARY WORKER procedure are in the results section. COMPREHENSIVE METABOLIC Routine 10/24/2018 1:36 PM Preop testing Results for this PANEL CULINARY WORKER procedure are in the results section. CBC HEMOGRAM Routine 10/24/2018 1:36 PM Preop testing Results for this CULINARY WORKER procedure are in the results section. after 06/16/2018 Results POC glucose (01/23/2019 11:45 AM CDT)Only the most recent of44 resultswithin the time period is included. Pathologist [facility] POC glucose 107 (H) 65 - 99 mg/dL [facility] Comment: HOSPITAL CR[facility]ESS [facility]PITAL Notified RN Meter ID: [id number] Clinical Services Professional: Eddie Dowd I Specimen Performing Organization Address City/State/Zipcode Phone Number [facility] DEPARTMENT OF PATHOLOGY AND [address] [place] [address] GENOMIC MEDICINE [address] [address] CBC hemogram (01/23/2019 6:20 AM CDT)Only the most recent of2 resultswithin the time period is included. [facility] WBC 6.23 4.50 - 11.00 k/uL [facility] RBC 2.77 (L) 4.40 - 6.00 m/uL [facility] HGB 8.9 (L) 14.0 - 18.0 g/dL [facility] HCT 28.1 (L) 41.0 - 51.0 % [facility] MCV 101.4 (H) 82.0 - 100.0 fL [facility] MCH 32.1 27.0 - 34.0 pg [facility] MCHC 31.7 31.0 - 37.0 g/dL [facility] RDW - SD 66.9 (H) 37.0 - 55.0 fL [facility] MPV 10.7 8.8 - 13.2 fL [facility] Platelet count 156 150 - 400 k/uL [facility] Nucleated RBC 0.00 /100 WBC [facility] Specimen Blood Performing Organization Address City/[facility] Cent[facility] Phone Number [facility] DEPARTMENT OF PATHOLOGY AND [address] [place] [address] Estimated GFR (01/22/2019 5:00 AM CDT)Only the most recent of20 resultswithin the time period is included. Estimated GFR 73 mL/min/1.73 [facility] Comment: m2 HOSPITAL CatergoryUnitsInterpretation G1 >=90 Normal or high G2 60-89Mildly decreased A9y89-50Xptauc to moderately decreased X6t30-19Mebyepzqmp to severely decreased G4 15-29Severely decreased G5 <15Kidney failure The eGFR was calculated using the Chronic Kidney Disease Epidemiology Collaboration (CKD-EPI) equation. Interpretation is based on recommendations of the National Kidney Foundation-Kidney Disease Outcomes Quality Initiative (NKF-KDOQI) published in 2014. Specimen Plasma specimen Performing Organization Address [facility] [place] [place] Phone Number [facility] DEPARTMENT OF PATHOLOGY AND [address] [place] [phone] Phosphorus level (01/22/2019 5:00 AM CDT)Only the most recent of9 resultswithin the time period is included. Phosphorus 2.3 (L) 2.4 - 4.5 mg/dL [facility] Specimen Plasma specimen Performing Organization Address City/[facility] Cent[facility]ode Phone Number [facility] DEPARTMENT OF PATHOLOGY AND [address] [place] [phone] B natriuretic peptide (01/22/2019 5:00 AM CDT)Only the most recent of5 resultswithin the time period is included. BNP 2,025 (H) 0 - 100 pg/mL [facility] Specimen Blood Performing Organization Address [facility] Cent[facility]ode Phone Number [facility] DEPARTMENT OF PATHOLOGY AND [address] [place] [address] Magnesium level (01/22/2019 5:00 AM CDT)Only the most recent of13 resultswithin the time period is included. Magnesium 1.8 1.6 - 2.4 mg/dL [facility] Specimen Plasma specimen Performing Organization Address City/[facility] Cent[facility]ode Phone Number [facility] DEPARTMENT OF PATHOLOGY AND [address] [place] [phone] Comprehensive metabolic panel (01/22/2019 5:00 AM CDT)Only the most recent of6 resultswithin the time period is included. Sodium 142 135 - 148 [facility] mEq/L [facility] Potassium 4.3 3.5 - 5.0 [facility] mEq/L [facility] Chloride 115 (H) 98 - 112 mEq/L [facility] CO2 18 (L) 24 - 31 mEq/L [facility] Anion gap 9@ANIO 7 - 15 mEq/L [facility] BUN 16 8 - 23 mg/dL [facility] Creatinine 0.98 0.70 - 1.20 [facility] mg/dL HOSPITAL Glucose 78 65 - 99 mg/dL [facility] Calcium 8.1 (L) 8.8 - 10.2 [facility] mg/dL HOSPITAL Protein 4.9 (L) 6.3 - 8.3 g/dL [facility] Comment: HOSPITAL [place] 4.6-7.0 g/dL 1 week 4.4-7.6 g/dL 7 months-1year5.1-7.3 g/dL 1-2 years5.6-7.5 g/dL >3 years6.0-8.0 g/dL 18-150 6.3-8.3 g/dL Albumin 2.1 (L) 3.5 - 5.0 g/dL [facility] A/G ratio 0.8 0.7 - 3.8 [facility] Alkaline phosphatase 93 40 - 129 U/L [facility] AST 16 10 - 50 U/L [facility] ALT 10 5 - 50 U/L [facility] Total bilirubin 0.7 0.0 - 1.2 [facility] mg/dL HOSPITAL Specimen Plasma specimen Performing Organization Address City/[facility] Cent[facility]ode Phone Number [facility] DEPARTMENT OF PATHOLOGY AND [address] [place] [phone] [place] [address] [place] [address] XR Chest 1 Vw Portable (01/21/2019 2:42 PM CDT)Only the most recent of2 resultswithin the time period is included. Specimen Narrative Performed At EXAMINATION:XR CHEST 1 VW PORTABLE [facility] CLINICAL HISTORY:chf COMPARISON:01/10/2019 IMPRESSION: Right PICC line courses to the cavoatrial junction. Mild right hemidiaphragm elevation. Patchy left basilar opacity may reflect pneumonia, mildly improved. No new consolidation. No significant pleural effusion. Stable cardiomediastinal silhouette. [facility]-[id number] Procedure Note Interface, Radiology Results Incoming - 01/21/2019 2:56 PM CDT EXAMINATION: XR CHEST 1 VW PORTABLE CLINICAL HISTORY: chf COMPARISON: 01/10/2019 IMPRESSION: Right PICC line courses to the cavoatrial junction. Mild right hemidiaphragm elevation. Patchy left basilar opacity may reflect pneumonia, mildly improved. No new consolidation. No significant pleural effusion. Stable cardiomediastinal silhouette. [facility]-[id number] Performing Organization Address City/State/Zipcode Phone Number [facility] [address] [place] [address] Us duplex venous upper extremity (01/21/2019 2:27 PM CDT) Specimen Narrative Performed At [facility] Vascular Ultrasound Laboratory Upper Extremity Venous Report [address] [place] [address] Pat.Name:GAUTAM RAMIREZ Pat.ID:[id number] .Date: 01/21/2019 Refer.MD:LUIS ROSEN MD Exam Time: 1:48:00 PMStudy Type:UE Venous Height:73inWeight: 155lb BSA: 1.93 m2 DOBAge:1940,78Y Sex: MALESonogrphr: Janny Cole RVT Pat. Stat.:Inpatient Room:[address] TapeVol: FAUSTINO, CPT - 4: 21859 Echo Event ID:[id number] Order ID:[id number] Reason for Study:Evaluation for DVT. Procedures:Colorflow, Grayscale/2D, [...] Ultrasound Laboratory Upper Extremity Venous Report [address] [place] [address] Pat.Name: GAUTAM RAMIREZ Pat.ID: [id number] .Date: 01/21/2019 Refer.MD: LUIS ROSEN MD Exam Time: 1:48:00 PM Study Type:UE Venous Height: 73in Weight: 155lb BSA: 1.93 m2 Age: 5 1940,78Y Sex: MALE Sonogrphr: Janny Cole RVT Pat. Stat.:Inpatient Room: [address] Tape Vol: JJ, CPT - 4: 23864 Echo Event ID:[id number] Order ID: [id number] Reason for Study:Evaluation for DVT. Procedures:Colorflow, Grayscale/2D, [...] RPVI Performing Organization Address City/State/Zipcode Phone Number [facility] [address] duplex venous lower extremity (01/21/2019 2:03 PM CDT) Specimen Narrative Performed At [facility] Vascular Ultrasound Laboratory Lower Extremity Venous Report [address] [place] [address] Pat.Name:GAUTAM RAMIREZ Pat.ID:[id number] .Date: 01/21/2019 Refer.MD:LUIS ROSEN MD Exam Time: 2:05:00 PMStudy Type:LE Venous Height:73inWeight: 155lb BSA: 1.93 m2 DOBAge:1940,78Y Sex: MALESonogrphr: Janny Cole RVT Pat. Stat.:Inpatient Room:[address] TapeVol: FAUSTINO, CPT - 4: 13913 Echo Event ID:[id number] Order ID:[id number] Reason for Study:Evaluation for DVT, prolonged supine [...] Vascular Ultrasound Laboratory Lower Extremity Venous Report [address] [place] [address] Pat.Name: GAUTAM RAMIREZ Pat.ID: [id number] .Date: 01/21/2019 Refer.MD: LUIS ROSEN MD Exam Time: 2:05:00 PM Study Type:LE Venous Height: 73in Weight: 155lb BSA: 1.93 m2 Age: 5 1940,78Y Sex: MALE Sonogrphr: Janny Cole RVT Pat. Stat.:Inpatient Room: [address] Tape Vol: JJ, CPT - 4: 39140 Echo Event ID:[id number] Order ID: [id number] Reason for Study:Evaluation for DVT, prolonged supine [...] Performing Organization Address City/State/Zipcode Phone Number [facility] [address] [place] [address] Cv laborer construction or leak gang procedure (01/20/2019 9:02 AM CDT) Specimen Narrative Performed At Inpatient procedure ;preop dx ischemic cardiomyopathy , decompensated chf SYNGO procedure : lhc,lva ,selective cor findings: patent proximal; lad stent,mild isr; cfx - calcified plaque etf26-26% proximal stenosis, 100% stenosis mid rca proximal to rca stent, collaterals to distal julia /pad of rca via lad septals and cfx[progression of rca occlusive cadVs 01/2081 outside heart cath diagran m and lvef worsening vs out echo/doppler form sonya brown 11/2018 report] lvef est 25-29%, lvedp 8; medical rx , afterloadOptimization; cv risk optimization emphasis Performing Organization Address [facility] Centercode Phone Number [facility] [address] [place] [phone] Partial thromboplastin time, activated (01/20/2019 4:56 AM CDT)Only the most recent of3 resultswithin the time period is included. Pathologist [facility] PTT 38.8 (H) 23.0 - 36.0 [facility] Comment: [facility] PTT therapeutic range for unfractionated heparin is 61.0-112.0 seconds which corresponds to Anti-Xa 0.3-0.7 U/ml. Specimen Blood Performing Organization Address [facility] [place], [place] Phone Number [facility] DEPARTMENT OF PATHOLOGY AND [address] [place] [address] [address] Prothrombin time with INR (01/20/2019 4:56 AM CDT)Only the most recent of4 resultswithin the time period is included. Pathologist [facility] Prothrombin time 18.2 (H) 11.5 - 14.5 [facility] INR 1.6 [facility] Comment: PENTECOSTALISM The International Normalized Ratio (INR) is a therapeutic HOSPITAL monitoring tool for patients who are stable on oral anticoagulant therapy. An INR of 2.0-3.0 is suggested for deep vein thrombosis/pulmonary embolism. Specimen Blood Performing Organization Address [facility] Centercode Phone Number [facility] DEPARTMENT OF PATHOLOGY AND [address] [place] [phone] [place] [phone] CBC with platelet and differential (01/20/2019 4:56 AM CDT)Only the most recent of13 resultswithin the time period is included. Pathologist [facility] WBC 7.13 4.50 - 11.00 [facility] RBC 2.75 (L) 4.40 - 6.00 [facility] m/uL HOSPITAL HGB 8.8 (L) 14.0 - 18.0 [facility] g/dL HOSPITAL HCT 28.7 (L) 41.0 - 51.0 % [facility] MCV 104.4 (H) 82.0 - 100.0 [facility] MCH 32.0 27.0 - 34.0 pg [facility] MCHC 30.7 (L) 31.0 - 37.0 [facility] g/dL [facility] RDW - SD 64.8 (H) 37.0 - 55.0 [facility] MPV 11.1 8.8 - 13.2 [facility] Platelet count 124 (L) 150 - 400 k/uL [facility] Nucleated RBC 0.00 /100 WBC [facility] Neutrophils 70.3 (H) 39.0 - 69.0 % [facility] Lymphocytes 18.7 (L) 25.0 - 45.0 % [facility] Monocytes 6.9 0.0 - 10.0 % [facility] Eosinophils 2.8 0.0 - 5.0 % [facility] Basophils 0.3 0.0 - 1.0 % [facility] Immature granulocytes 1.0Comment: 0.0 - 1.0 % [facility] "Immature [facility] granulocytes" (promyelocytes , myelocytes, metamyelocytes ) Specimen Blood Performing Organization Address City/State/Zipcode Phone Number [facility] DEPARTMENT OF PATHOLOGY AND [address] [place] [address] GENOMIC MED[address] [address] Basic metabolic panel (01/17/2019 4:00 AM CULINARY WORKER)Only the most recent of14 resultswithin the time period is included. Sodium 141 135 - 148 mEq/L [facility] Potassium 4.1 3.5 - 5.0 mEq/L [facility] Chloride 116 (H) 98 - 112 mEq/L [facility] CO2 19 (L) 24 - 31 mEq/L [facility] Anion gap 6@ANIO (L) 7 - 15 mEq/L [facility] BUN 18 8 - 23 mg/dL [facility] Creatinine 0.93 0.70 - 1.20 mg/dL [facility] Glucose 91 65 - 99 mg/dL [facility] Calcium 7.5 (L) 8.8 - 10.2 mg/dL [facility] Specimen Plasma specimen Performing Organization Address City/State/Zipcode Phone Number [facility] DEPARTMENT OF PATHOLOGY AND [address] [place] [address] GENOMIC MEDICINE [facility] [address] [place] [address] Cv echo 2d limited or follow up study (01/16/2019 12:25 PM CULINARY WORKER) Specimen Narrative Performed At [facility] Echocardiography Report [address] [facility], [facility] [address] [address] Pat.Name:GAUTAM RAMIREZ Pat.ID:[id number] St.Date: 01/16/2019Refer.MD:LUIS ROSEN MD Exam Time: 11:57:00 AM Study Type:Routine Echo Height:72.99in Weight:155lb BSA: 1.93 m2 DOBAge:1940,78Y Sex: MALEBP:99/56 HR:83 bpmSonogrphr: Sweta Turk RDCS Pat. Stat.:Inpatient Room:[place] [address] Study Status:Final Echo Event ID:[id number] Order ID:[id number] Reason for Study:Cardiomyopathies - Initial eval of known or suspected cardiomyopathy (e.g. restrictive, infiltrative, dilated, hypertophic, or genetic cardiomyopathy) Procedures:Portable, 2D Echo,Colorflow Doppler Limited Race:C SUMMARY: LV size is moderately to severely enlarged. Estimated EF is 20-24%. There is severe eccentric LV hypertrophy. Estimated PA systolic pressure is 33-38 mmHg, assuming a mean RAP of 5-10 mmHg. FINDINGS: LV: LV size is ffdsvhiu-cg-dfkazost enlarged. There is severe eccentricLV hypertrophy. LV [...] of 5-10 mmHg. MEASUREMENTS: 2D Parasternal [place] LVOT 1.9 cmLA Ds5.1 cm LVIDd6.6 cmIndex3.4 cm/m Ao An2 cm LVIDs5.4 cmAo Rtd 3.7 cm Index1.9 cm/m LV%fs 18.2 % LV Cxfh759.9 g(122-174) IVSd 1.1 cmLVM Whbxi516.3 g/m2 LVPWd1.2 cmRWT0.4 LA Sng Plane LA [...] 4332.8 cm/s2 AV Mean G 16.8 mmHgAV TsGl009.2 cm/s2 AV AC106 msec (83-118) AV Area1.1 [...] Radiology Results In - 01/16/2019 4:21 PM CULINARY WORKER Echocardiography Report [address] [place] [address] Pat.Name: GAUTAM RAMIREZ Pat.ID: [id number] .Date: 01/16/2019 Refer.MD: LUIS ROSEN MD Exam Time: 11:57:00 AM Study Type:Routine Echo Height: 72.99in Weight: 155lb BSA: 1.93 m2 Age: 5 1940,78Y Sex: MALE BP: 99/56 HR: 83 bpm Sonogrphr: Sweta Turk RDCS Pat. Stat.:Inpatient Room: [place] [address] Study Status:Final Echo Event ID:[id number] Order ID: [id number] Reason for Study:Cardiomyopathies - Initial eval of known or suspected cardiomyopathy (e.g. restrictive, infiltrative, dilated, hypertophic, or genetic cardiomyopathy) Procedures:Portable, 2D Echo,Colorflow Doppler Limited Race: C SUMMARY: LV size is moderately to severely enlarged. Estimated EF is 20-24%. There is severe eccentric LV hypertrophy. Estimated PA systolic pressure is 33-38 mmHg, assuming a mean RAP of 5-10 mmHg. FINDINGS: LV: LV size is odwutkpw-nw-qonbczim enlarged. There is severe eccentric LV hypertrophy. [...] of 5-10 mmHg. MEASUREMENTS: 2D Parasternal [place] LVOT 1.9 cm LA Ds 5.1 cm [...] PM Ole Hernández M.D. Performing Organization Address City/[facility]/Zipcode Phone Number [facility] [address] [place] [address] Vancomycin level, trough (01/16/2019 4:00 AM CULINARY WORKER)Only the most recent of2 resultswithin the time period is included. Pathologist [facility] Vancomycin, 18.2 10.0 - 20.0 [facility] trough Comment: ug/mL HOSPITAL Therapeutic Ranges: Peak 30.0 - 40.0 ug/mL Nkvjtr77.0 - 20.0 ug/mL Specimen Serum Performing Organization Address [facility] Centercode Phone Number [facility] DEPARTMENT OF PATHOLOGY AND [address] [place] [address] GENOMIC MEDIC[address] [address] ECG 12 lead (01/15/2019 8:20 AM CULINARY WORKER)Only the most recent of4 resultswithin the time period is included. [facility] Ventricular rate 99 [facility] MUSE Atrial rate 99 [facility] MUSE QRSD interval 124 [facility] MUSE [...] ECG-In automated comparison with ECG of 11-JAN-2019 [facility] MUSE 11:15,-fusion complexes are no longer present-QRS axis shifted left- Nonspecific T wave abnormality, improved in Inferior leads-T wave inversion more evident in Lateral leads- Specimen Narrative Performed At Performing Organization Address City/[facility] Centercoin Phone Number [facility] MUSE [address] [place] [address] Aerobic culture (01/14/2019 11:05 AM CULINARY WORKER)Only the most recent of2 resultswithin the time period is included. [facility] Aerobic culture No growth after 2 days. [facility] isolate Comment: HOSPITAL Specimen Information Specimen Source: Drainage Specimen Site: Back Specimen Drainage - Back Performing Organization Address [facility] Centercode Phone Number [facility] DEPARTMENT OF PATHOLOGY AND [address] [place] [address] Gram stain (01/14/2019 11:05 AM CULINARY WORKER)Only the most recent of2 resultswithin the time period is included. Gram stain isolate Moderate WBC's [facility] No organisms seen HOSPITAL Comment: Specimen Information Specimen Source: Drainage Specimen Site: Back Specimen Drainage - Back Performing Organization Address [facility] Cent[facility]ode Phone Number [facility] DEPARTMENT OF PATHOLOGY AND [address] [place] [address] Anaerobic culture (01/14/2019 10:05 AM CULINARY WORKER)Only the most recent of2 resultswithin the time period is included. Anaerobic culture No anaerobic organisms isolated. [facility] isolate Comment: HOSPITAL Specimen Information Specimen Source: Drainage Specimen Site: Back Specimen Drainage - Back Performing Organization Address [facility] [place] [place] Phone Number [facility] DEPARTMENT OF PATHOLOGY AND [address] [place] [address] HIV Ag/Ab combination (01/14/2019 4:00 AM CULINARY WORKER) HIV Ag/Ab combination Non-reactive Non-reactive [facility] Specimen Blood Performing Organization Address [facility] [place], [place] Phone Number [facility] DEPARTMENT OF PATHOLOGY AND [address] [place] [address] Us carotid duplex (01/13/2019 9:45 AM CULINARY WORKER) Specimen Narrative Performed At [facility] Vascular Ultrasound Laboratory Carotid Artery Duplex Report [address] [facility], [facility] [address], [place] [address] For supplier quality manager purposes, the categorization of the degree of the stenosis of this exam is based on criteria described in the IAC carotid stenosis grading white paper( www.intersocietal.org/Vascular) and Keli Ford., Aleks Garay., et al. Carotid artery stenosis: grady-scale and Doppler US diagnosis--Society of Radiologists in Ultrasound Consensus Conference. Radiology. 2002; 229(2):340-6. Pat.Name:GAUTAM RAMIREZ Pat.ID:[id number] .Date: 01/13/2019Refer.MD:LUIS ROSEN MD Exam Time: 9:25:00 AMStudy Type:Carotid DOBAge:1940,78Y Sex: MALE Sonogrphr: Piero Starr, RVSPat. Stat.:[facility]patient [facility] TapeVol: [facility] - 4: [address] Echo Event ID:[id number] Order ID:[id number] Reason for Study:Carotid artery disease; CAD, colon [...] Radiology Results In - 01/13/2019 6:06 PM [facility] Vascular Ultrasound Laboratory Carotid Artery Duplex Report [address] [facility], [facility] [address], [place] [address] For supplier quality manager purposes, the categorization of the degree of the stenosis of this exam is based on criteria described in the IAC carotid stenosis grading white paper( www.intersocietal.org/Vascular) and Keli Ford., Aleks Garay., et al. Carotid artery stenosis: grady-scale and Doppler US diagnosis--Society of Radiologists in Ultrasound Consensus Conference. Radiology. 2003 Nov; 229(2):340-6. Pat.Name: GAUTAM RAMIREZ Pat.ID: [id number] St.Date: 01/13/2019 Refer.MD: LUIS ROSEN MD Exam Time: 9:25:00 AM Study Type:Carotid Age: 5 1940,78Y Sex: MALE Sonogrphr: NGA [place] Pat. Stat.:Inpatient Room: [address] Vol: , CPT - 4: [address] Echo Event ID:[id number] Order ID: [id number] Reason for Study:Carotid artery disease; CAD, colon [...] Estrada MD, FACS, RPVI Performing Organization Address [facility] [place], [place] Phone Number [facility] [address] [place] [address] Total iron binding capacity (01/13/2019 3:30 AM CULINARY WORKER) [facility] Iron level 39 (L) 59 - 158 ug/dL [facility] Iron binding capacity 81 (L) 200 - 400 ug/dL [facility] % Saturation 48.1 (H) 20.0 - 40.0 % [facility] Specimen Plasma specimen Performing Organization Address [facility] [place], [place] Phone Number [facility] DEPARTMENT OF PATHOLOGY AND [address] [place] [phone] Reticulocyte count (01/13/2019 3:30 AM CULINARY WORKER) Pathologist [facility] Retic %, auto 0.9 0.5 - 2.1 % [facility] Retic absolute, auto 0.0245 0.0220 - 0.1260 [facility] Specimen Blood Performing Organization Address [facility] [place], [place] Phone Number [facility] DEPARTMENT OF PATHOLOGY AND [address] [place] [phone] Folate level (01/13/2019 3:30 AM CULINARY WORKER) Folate 4.2 (L) 4.8 - 24.2 ng/mL [facility] Specimen Serum Performing Organization Address [facility] [place], [place] Phone Number [facility] DEPARTMENT OF PATHOLOGY AND [address] [place] [address] 34479 Vitamin B12 level (01/13/2019 3:30 AM CULINARY WORKER) Pathologist [facility] Vitamin B12 [phone] [facility] Comment: pg/mL HOSPITAL Significant overlap exists between normal and deficiency states. However, most patients with deficiencies will have Serum B12 <200 pg/mL. Specimen Serum Performing Organization Address City/[facility] Centercode Phone Number [facility] DEPARTMENT OF PATHOLOGY AND [address] [place] [phone] [place] [address] [phone] Cortisol level, AM (01/12/2019 5:50 AM CULINARY WORKER) Cortisol, AM 7 6 - 18 ug/dL [facility] Specimen Plasma specimen Performing Organization Address [facility] Centercode Phone Number [facility] DEPARTMENT OF PATHOLOGY AND [address] [place] [phone] [place] [address] 83965 T3, free (01/12/2019 5:50 AM CULINARY WORKER) T3, free 1.1 (L) 2.4 - 4.2 pg/mL [facility] Comment: REFERENCE INTERVAL: Triiodothyronine, Free (Free T3) Access complete set of age- and/or gender-specific reference intervals for this test in the [employer] Test Directory ([employer]). Performed by [employer], [address] [place] [id number] [email or web address], Al Dunbar MD - Lab. Director Specimen Serum Performing Organization [facility] [place] [place] Phone Number [facility] [address] [place] [address] [facility] [address] [place] [address] Thyroid stimulating hormone (01/12/2019 5:50 AM CULINARY WORKER)Only the most recent of2 resultswithin the time period is included. TSH 4.12 0.27 - 4.20 uIU/mL [facility] Specimen Plasma specimen Performing Organization Address [facility] Centercode Phone Number [facility] DEPARTMENT OF PATHOLOGY AND [address] [place] [phone] [place] [address] [phone] T4, free (01/12/2019 5:50 AM CULINARY WORKER) T4, free 0.8 (L) 0.9 - 1.7 ng/dL [facility] Specimen Plasma specimen Performing Organization Address [facility] Centercoin Phone Number [facility] DEPARTMENT OF PATHOLOGY AND [address] [place] [address] Thyroperoxidase antibody (01/11/2019 1:10 PM CULINARY WORKER) Pathologist [facility] Thyroperoxidase Ab <0.3 0.0 - 9.0 IU/mL [facility] Specimen Serum Performing Organization Address [facility] [place], [place] Phone Number [facility] DEPARTMENT OF PATHOLOGY AND [address] [place] [address] Ionized calcium (01/11/2019 3:30 AM CULINARY WORKER)Only the most recent of2 resultswithin the time period is included. Pathologist [facility] pH 7.53 [facility] Ionized calcium 1.11 1.11 - 1.32 mmol/L [facility] Specimen Plasma specimen Performing Organization Address [facility] [place], [place] Phone Number [facility] DEPARTMENT OF PATHOLOGY AND [address] [place] [address] Hepatic function panel (01/11/2019 3:30 AM CULINARY WORKER)Only the most recent of2 resultswithin the time period is included. Pathologist [facility] Albumin 1.5 (L) 3.5 - 5.0 g/dL [facility] Total bilirubin 0.8 0.0 - 1.2 [facility] mg/dL [facility] Bilirubin direct 0.4 (H) 0.0 - 0.3 [facility] mg/dL [facility] Alkaline phosphatase 163 (H) 40 - 129 U/L [facility] Protein 5.1 (L) 6.3 - 8.3 g/dL [facility] Comment: HOSPITAL 4.6-7.0 g/dL 1 week 4.4-7.6 g/dL 7 months-1year5.1-7.3 g/dL 1-2 years5.6-7.5 g/dL >3 years6.0-8.0 g/dL 18-150 6.3-8.3 g/dL ALT 35 5 - 50 U/L [facility] AST 25 10 - 50 U/L [facility] Specimen Plasma specimen Performing Organization Address City/[facility] Centercode Phone Number [facility] DEPARTMENT OF PATHOLOGY AND [address] [place] [address] Hemoglobin & hematocrit (01/10/2019 8:10 PM CULINARY WORKER)Only the most recent of4 resultswithin the time period is included. [facility] HGB 9.7 (L) 14.0 - 18.0 g/dL [facility] HCT 30.9 (L) 41.0 - 51.0 % [facility] Specimen Blood Performing Organization Address City/[facility] Centercoin Phone Number [facility] DEPARTMENT OF PATHOLOGY AND [address] [place] [address] Troponin (01/10/2019 8:10 PM CULINARY WORKER)Only the most recent of3 resultswithin the time period is included. [facility] Troponin <0.30 0.00 - 0.30 [facility] Comment: ng/mL HOSPITAL 0.30 - 1.49 ng/mlMay indicate increased risk of acute coronary syndrome. >=1.5 ng/mlConsistent with acute myocardial infarction. The diagnostic value of a single normal or non-diagnostic result is questionable.Serial samples at 2-6 hour intervals are required to rule out acute myocardial injury. Specimen Plasma specimen Performing Organization Address [facility] [place], [place] Phone Number [facility] DEPARTMENT OF PATHOLOGY AND [address] [place] [address] Hepatitis acute panel (01/10/2019 5:16 PM CULINARY WORKER) Pathologist [facility] Hepatitis A IgM Non-reactive Non-reactive [facility] Hepatitis B core Non-reactive Non-reactive [facility] Hepatitis B surface Non-reactive Non-reactive [facility] Hepatitis C Ab Non-reactive Non-reactive [facility] Specimen Serum Performing Organization Address City/[facility] Centercode Phone Number [facility] DEPARTMENT OF PATHOLOGY AND [address] [place] [address] T4 (01/10/2019 5:16 PM CULINARY WORKER) T4 3.1 (L) 4.5 - 11.7 ug/dL [facility] Specimen Plasma specimen Performing Organization Address City/[facility] Centercode Phone Number [facility] DEPARTMENT OF PATHOLOGY AND [address] [place] [address] [phone] Lactic acid level, SEPSIS - Now and repeat 2x every 3 hours (01/10/2019 12:15 PM CULINARY WORKER)Only the most recent of3 resultswithin the time period is included. Lactic acid 1.3 0.5 - 2.2 mmol/L [facility] Specimen Blood Performing Organization Address [facility] Centercoin Phone Number [facility] DEPARTMENT OF PATHOLOGY AND [address] [place] [address] [phone] Sodium level, urine, random (01/10/2019 12:12 PM CULINARY WORKER) Sodium, urine, random 81 mEq/L [facility] Specimen Urine Performing Organization Address [facility] [place], [place] Phone Number [facility] DEPARTMENT OF PATHOLOGY AND [address] [place] [phone] [place] [address] 37932 Creatinine level, urine, random (01/10/2019 12:12 PM CULINARY WORKER) Creatinine, urine, 98 mg/dL [facility] Specimen Urine Performing Organization Address [facility] [place] [place] Phone Number [facility] DEPARTMENT OF PATHOLOGY AND [address] [place] [address] Head Wo Contrast (01/10/2019 11:23 AM CULINARY WORKER) Specimen Narrative Performed At EXAMINATION:CT HEAD WO [...] cells, correlate with physical exam for otomastoiditis. [id number] Procedure Note Interface, Radiology Results Incoming - 01/10/2019 11:35 AM CULINARY WORKER EXAMINATION: CT HEAD WO CONTRAST CLINICAL HISTORY: [...] cells, correlate with physical exam for otomastoiditis. [id number] Performing Organization Address City/State/Zipcode Phone Number [facility] [address] [place] [address] CT Abdomen Pelvis Wo Contrast (01/10/2019 11:23 AM CULINARY WORKER) Specimen Narrative Performed At EXAMINATION:CT ABDOMEN PELVIS [...] to suggest abscess. Bilateral lower lobe pneumonia. [id number] Procedure Note Interface, Radiology Results Incoming - 01/10/2019 12:05 PM CULINARY WORKER EXAMINATION: CT ABDOMEN PELVIS WO CONTRAST CLINICAL [...] to suggest abscess. Bilateral lower lobe pneumonia. [facility]-[id number] Performing Organization Address [facility] [place] [place] Phone Number [email or web address] [address] [place] [address] XR Picc Chest Portable (01/10/2019 11:00 AM CULINARY WORKER) Specimen Narrative Performed At EXAMINATION:XR PICC CHEST PORTABLE [facility] CLINICAL HISTORY:N91.2 Amenorrheaunspecified, Multiple IV meds COMPARISON:Chest x-ray 01/10/2019 IMPRESSION: Single frontal view reveals interval placement of a right-sided PICC line with tip overlying the SVC. The remainder of the examination is unchanged. [facility]-[id number] Procedure Note Interface, Radiology Results Incoming - 01/10/2019 11:04 AM CULINARY WORKER EXAMINATION: XR PICC CHEST PORTABLE CLINICAL HISTORY: N91.2 Amenorrhea unspecified, Multiple IV meds COMPARISON: Chest x-ray 01/10/2019 IMPRESSION: Single frontal view reveals interval placement of a right-sided PICC line with tip overlying the SVC. The remainder of the examination is unchanged. [facility]-[id number] Performing Organization Address [facility] Centercoin Phone Number [email or web address] [address] [place] [address] PICC insertion (01/10/2019 9:58 AM CULINARY WORKER) Narrative Performed At Jenifer Woodson 01/10/2019 10:04 AM PICC insertion Date/Time: 01/10/2019 9:58 AM Performed by: Don Riojas RN Authorized by: Nayely Flood MD Consent: Consent obtained:Verbal Consent given by:Patient Risks discussed: arterial puncture, incorrect placement, nerve damage, bleeding, infection, superficial thrombus and deep vein thrombus Alternatives discussed:No treatment and delayed treatment [place] protocol: Procedure explained and questions answered to [...] LDA): Patient position:Flat Vessel Size (mm):4 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 Specimen Performing Organization Address [facility] Centercode Phone Number [facility] DEPARTMENT OF PATHOLOGY AND [address] [place], [place] [phone] [place] [phone] Urinalysis screen and microscopy, with reflex to culture (01/10/2019 7:24 AM CULINARY WORKER) Specimen site Catheterized [facility] Color, UA Yellow [facility] Appearance, UA Clear [facility] Specific gravity, UA 1.054 (H) 1.001 - 1.035 [facility] pH, UA 5.0 5.0 - 8.5 [facility] Protein, UA Negative Negative [facility] Glucose, UA Negative Negative [facility] Ketones, UA Negative Negative [facility] Bilirubin, UA Negative Negative [facility] Blood, UA Negative Negative [facility] Nitrite, UA Negative Negative [facility] Urobilinogen, UA <2.0 <2.0 [facility] Leukocyte esterase, Negative Negative [facility] Epithelial cells, UA 1 /HPF [facility] WBC, UA 2 (H) 0 - 1 /HPF [facility] RBC, UA 5 0 - 5 /HPF [facility] Bacteria, UA Few None seen [facility] Yeast, UA None seen [facility] Yeast with None seen [facility] pseudohyphae, HOSPITAL Specimen Urine Performing Organization Address [facility] Centercode Phone Number [facility] DEPARTMENT OF PATHOLOGY AND [address] [place], [place] [phone] [place] [address]247 XR Abdomen 1 Vw Portable (01/10/2019 6:53 AM CULINARY WORKER) Specimen Narrative Performed At EXAMINATION:XR ABDOMEN 1 VW PORTABLE [facility] CLINICAL HISTORY:ICU ptrecent abdominal surgery COMPARISON:None. IMPRESSION: Water-soluble contrast material is noted in the stomach and proximal small bowel which is not dilated.There is an ostomy in the right lower quadrant.There is no significant colonic material identified.There is contrast in the urinary bladder. [id number] Procedure Note Interface, Radiology Results Incoming - 01/10/2019 7:46 AM CULINARY WORKER EXAMINATION: XR ABDOMEN 1 VW PORTABLE CLINICAL HISTORY: ICU pt recent abdominal surgery COMPARISON: None. IMPRESSION: Water-soluble contrast material is noted in the stomach and proximal small bowel which is not dilated. There is an ostomy in the right lower quadrant. There is no significant colonic material identified. There is contrast in the urinary bladder. [facility]-[id number] Performing Organization Address City/State/Zipcode Phone Number [facility] [address] [place] [address] Echocardiogram complete w contrast and 3D if needed (01/10/2019 6:28 AM CULINARY WORKER) Specimen Narrative Performed At [facility] Echocardiography Report [address] [facility], [place] [address] Pat.Name:GAUTAM RAMIREZ Pat.ID:[id number] St.Date: 01/10/2019Refer.MD:NAYELY FLOOD MD Exam Time: 5:52:00 AMStudy Type:Routine Echo Height:72.99in Weight:154.66lb BSA: 1.93 m2 DOBAge:1940,78Y Sex: MALEBP:120/58 HR:83 bpmSonogrphr: IRVING Mendoza Pat. Stat.:Inpatient Room:[place] [address] Study Status:Final Echo Event ID:[id number] Order ID:[id number] Reason for Study:AFIB, elevated BNP Procedures:2D Echo, Colorflow Doppler, Strain, Portable, Stat Race: SUMMARY: LV EF is severely depressed. Inferoposterior [place] Tethered posterior mitral leaflet with Moderate mitral regurgitation. FINDINGS: LV: LV size is yrhtkutt-hi-qgszuznq enlarged. LV EF is severely depressed.Estimated EF [...] of 5-10 mmHg. MEASUREMENTS: 2D Parasternal [place] Ds4.5 cmLVPWd1.1 cm LVOT 2.3 cmAo An2.3 cm LVIDd6.5 cmIndex3.3 cm/m Ao Rtd 3.6 cm Index1.9 cm/m LVIDs5.3 cm LV Xfvz008 g(122-174) LV%fs 18.5 % LVM Yhyxb577.8 g/m2 IVSd 1.1 cmRWT0.3 LA Sng Plane [...] TVI47.6 cm AV Mean G 13.8 mmHgAVpkAcRt 52699.1 cm/s2 AV AC100 msec (83-118) AV Area-Cont. Eq. LVOT Area3.8 cm2 AV TVI47.6 cm LVOT TVI15.7 cmAV Area1.3 cm2(3-5) AV SV 59.8 ml For Flow/Valve Assess FmByx415.5 cm/sTVI 48.7 cm MnPG13.5 mmHg WALL MOTION: [...] Radiology Results In - 01/10/2019 10:39 AM CULINARY WORKER Echocardiography Report [address]Name: GAUTAM RAMIREZ [facility].ID: [id number] .Date: 01/10/2019 Refer.MD: NAYELY FLOOD MD Exam Time: 5:52:00 AM Study Type:Routine Echo Height: 72.99in Weight: 154.66lb BSA: 1.93 m2 Age: 4 1940,78Y Sex: MALE BP: 120/58 HR: 83 bpm Sonogrphr: IRVING Mendoza Pat. Stat.:Inpatient Room: [place] [address] Study Status:Final Echo Event ID:[id number] Order ID: [id number] Reason for Study:AFIB, elevated BNP Procedures:2D Echo, Colorflow Doppler, Strain, Portable, Stat Race: SUMMARY: LV EF is severely depressed. Inferoposterior [place] Tethered posterior mitral leaflet with Moderate mitral regurgitation. FINDINGS: LV: LV size is wfjiyrcm-ee-fomwlpco enlarged. LV EF is severely depressed. Estimated [...] of 5-10 mmHg. MEASUREMENTS: 2D Parasternal [place] Ds 4.5 cm LVPWd 1.1 cm [...] cm AV Mean G 13.8 mmHg AVpkAcRt 34571.1 cm/s2 AV AC 100 msec (83-118) AV [...] Address City/State/Zipcode Phone Number [facility] [address] [place] [address] Respiratory pathogen panel (01/10/2019 3:45 AM CULINARY WORKER) [facility] Respiratory Negative for all pathogens tested: BLANCH pathogen panel Negative for Adenovirus PENTECOSTALISM Negative for Coronavirus HKU1 [facility] Negative for Coronavirus NL63 Negative [...] Specimen Nares - Right Performing Organization Address City/[facility]/Zipcode Phone Number [facility] DEPARTMENT OF PATHOLOGY AND [address] [place] [address] Gastrointestinal panel (01/10/2019 3:45 AM CULINARY WORKER) [facility] Gastrointestinal panel Positive for Giardia intestinalis (lamblia) BLANCH PENTECOSTALISM Negative for all other pathogens tested: HOSPITAL [...] Specimen Stool - Nonpreserved Performing Organization Address City/[facility]/Zipcode Phone Number [facility] DEPARTMENT OF PATHOLOGY AND [address] [place], [place] [phone] Occult blood, stool (01/10/2019 3:45 AM CULINARY WORKER) Pathologist [facility] Occult blood, Positive for Occult blood (A) [facility] stool Comment: HOSPITAL Specimen Information Specimen Source: Stool Specimen Site: Nonpreserved Specimen Stool - Nonpreserved Performing Organization Address City/[facility] Centercode Phone Number [facility] DEPARTMENT OF PATHOLOGY AND [address] [place] [phone] Blood culture, aerobic & anaerobic (01/10/2019 3:45 AM CULINARY WORKER) [facility] Blood culture No growth after 5 days of incubation. [facility] isolate Comment: HOSPITAL Specimen Information Specimen Source: Blood Specimen Site: Forearm, left Specimen Blood - Forearm, left Performing Organization Address [facility] Centercode Phone Number [facility] DEPARTMENT OF PATHOLOGY AND [address] [place] [address] [phone] Fibrinogen (01/10/2019 3:45 AM CULINARY WORKER) [facility] Fibrinogen 284 200 - 450 mg/dL [facility] Specimen Blood Performing Organization Address [facility] [place] [place] Phone Number [facility] DEPARTMENT OF PATHOLOGY AND [address] [place] [phone] D-dimer (01/10/2019 3:45 AM CULINARY WORKER) [facility] D-dimer 6.04 (H) 0.00 - 0.40 [facility] Comment: ug/mL [facility] Units are [...] and malignancies. Specimen Blood Performing Organization Address City/[facility] Centercode Phone Number [facility] DEPARTMENT OF PATHOLOGY AND [address] [place] [address] [phone] Type and screen (01/10/2019 3:45 AM CULINARY WORKER)Only the most recent of2 resultswithin the time period is included. ABO grouping A [facility] Rh type POS [facility] Antibody screen (gel) NEG [facility] Specimen Blood Performing Organization Address City/[facility] [place] [place] Phone Number [facility] DEPARTMENT OF PATHOLOGY AND [address] [place] [address] [phone] Lipase level (01/10/2019 3:45 AM CULINARY WORKER) Lipase 42 13 - 60 U/L [facility] Specimen Plasma specimen Performing Organization Address [facility] [place] [place] Phone Number [facility] DEPARTMENT OF PATHOLOGY AND [address] [place] [phone] Lactic acid level (01/10/2019 3:45 AM CULINARY WORKER) Lactic acid 2.5 (H) 0.5 - 2.2 mmol/L [facility] Specimen Plasma specimen Performing Organization Address [facility] [place] [place] Phone Number [facility] DEPARTMENT OF PATHOLOGY AND [address] [place] [phone] Creatine kinase, total (CPK) (01/10/2019 3:45 AM CULINARY WORKER) Creatine kinase 23 (L) 39 - 308 U/L [facility] Specimen Plasma specimen Performing Organization Address City/[facility] Centercode Phone Number [facility] DEPARTMENT OF PATHOLOGY AND [address] [place] [phone] Amylase level (01/10/2019 3:45 AM CULINARY WORKER) Amylase 25 (L) 28 - 100 U/L [facility] Specimen Plasma specimen Performing Organization Address [facility] Centercode Phone Number [facility] DEPARTMENT OF PATHOLOGY AND [address] [place] [phone] Surgical pathology request (11/22/2018 5:30 PM CULINARY WORKER)Only the most recent of2 resultswithin the time period is included. [facility] DEPARTMENT OF PATHOLOGY AND GENOMIC MEDICINE Surgical pathology See link below [facility] DEPARTMENT OF report for PDF Lab PATHOLOGY AND Report GENOMIC MEDICINE Result status This is Final [facility] DEPARTMENT OF Report for PATHOLOGY AND [id number] GENOMIC MEDICINE Specimen Performing Organization Address City/[facility] Centercode Phone Number [facility] DEPARTMENT OF PATHOLOGY AND [address] [place] [address] GENOMIC MEDICINE Transfuse RBC (11/22/2018 5:20 PM CULINARY WORKER)Only the most recent of2 resultswithin the time period is included.Sodium level, syringe (11/21/2018 8:25 AM CULINARY WORKER) Sodium, syringe 144 135 - 148 mEq/L [facility] Specimen Blood Performing Organization Address City/[facility] Centercode Phone Number [facility] DEPARTMENT OF PATHOLOGY AND [address] [place] [id number] [place] [id number] Potassium, syringe (11/21/2018 8:25 AM CULINARY WORKER) Potassium, syringe 3.3 (L) 3.5 - 5.0 mEq/L [facility] Specimen Blood Performing Organization Address [facility] Centercoin Phone Number [facility] DEPARTMENT OF PATHOLOGY AND [address] [place] [phone] Lactic acid, syringe (11/21/2018 8:25 AM CULINARY WORKER) Lactic acid, syringe 0.9 0.5 - 2.2 mmol/L [facility] Specimen Blood Performing Organization Address City/[facility]/Zipcode Phone Number [facility] DEPARTMENT OF PATHOLOGY AND [address] [place] [phone] Ionized calcium, arterial (11/21/2018 8:25 AM CULINARY WORKER) Ionized calcium, 1.05 (L) 1.11 - 1.32 [facility] arterial mmol/L [facility] Specimen Blood Performing Organization Address City/[facility] Centercode Phone Number [facility] DEPARTMENT OF PATHOLOGY AND [address] [place] [address] [place] [address] Hemoglobin, syringe (11/21/2018 8:25 AM CULINARY WORKER) Hemoglobin, syringe 11.7 (L) 14.0 - 18.0 g/dL [facility] Specimen Blood Performing Organization Address City/[facility] Centercode Phone Number [facility] DEPARTMENT OF PATHOLOGY AND [address] [place] [phone] [address] Glucose level, syringe (11/21/2018 8:25 AM CULINARY WORKER) Glucose, syringe 85 65 - 99 mg/dL [facility] Specimen Blood Performing Organization Address City/[facility] Centercode Phone Number [facility] DEPARTMENT OF PATHOLOGY AND [address] [place] [phone] Arterial blood gas (11/21/2018 8:25 AM CULINARY WORKER) pH, arterial 7.37 7.35 - 7.45 [facility] pCO2, arterial 36 35 - 45 mmHg [facility] pO2, arterial 196 (H) 80 - 90 mmHg [facility] Bicarbonate, 20.4 (L) 21.0 - 28.0 [facility] mmol/L [facility] Base excess, -4 (L) -2 - 2 mEq/L [facility] O2 saturation, 99 95 - 100 % [facility] Specimen Blood Performing Organization Address City/[facility] [place] [place] Phone Number [facility] DEPARTMENT OF PATHOLOGY AND [address] [place] [phone] ECG Pre/Post Op (11/15/2018 1:02 PM CULINARY WORKER) Ventricular rate 68 [facility] Atrial rate 68 [facility] OK interval 248 [facility] QRSD interval 110 [...] At Performing Organization Address City/State/Zipcode Phone Number [facility] MUSE [address] [place] [address] Carcinoembryonic antigen (CEA) (11/15/2018 12:52 PM CULINARY WORKER) CEA 2.8 0.0 - 3.8 [facility] Comment: ng/mL HOSPITAL Reference range for heavy smokers:0.0 - 5.5 ng/mL The JENNY Kathie 8000 CEA immunoassay was used. Results obtained with different assay methods or kits should not be used interchangeably and may be different. Specimen Serum Performing Organization Address City/State/Zipcode Phone Number [facility] DEPARTMENT OF PATHOLOGY AND [address] [place] [phone] [phone] Prepare RBC (11/15/2018 12:43 PM CULINARY WORKER)Only the most recent of2 resultswithin the time period is included. Product name Red Blood Cells [facility] -1, Leukored HOSPITAL Unit number [id number] [facility] Product code [id number] [facility] Dispense status Transfused [facility] Blood expiration [facility] Blood type code 6200 [facility] Blood type A POSITIVE [facility] Product name Red Blood Cells [facility]1, Leukored [facility] Unit number [id number] [facility] Product code [id number] [facility] Dispense status Returned to BB not [facility] Blood expiration [facility] Blood type code 6200 [facility] Blood type A POSITIVE [facility] Specimen Performing Organization Address City/State/Zipcode Phone Number [facility] DEPARTMENT OF PATHOLOGY AND [address] [place] [phone] [phone] after 06/16/2018 ([place]) [place] [address] Advance Directives Patient has advance care planning documents, and code status on file. For more information, please contact:El Taylor[address] [place] [address] Code Status Date Activated Date Inactivated Comments Full Code 11/21/2018 1:01 PM 11/26/2018 9:19 PM Code Status decision reached by: Patient
--- OUTSIDE RECORDS SUMMARY | 2019-06-17 17:11 | XMS REPORT | Clinical Summary ---
:1940 Author Organization [facility] Address [address] [place] [address] Care Team Providers Name Role Phone Paula [...] Not on file Results Not on fileafter 06/16/2018 Insurance Payer Benefit Plan / Subscriber ID Type Phone Address Group [employer] - MEDICARE A[employer] MEDICARE HMO xxxxxxxx [phone] [address] [place] [address] (Home) [place] [address]
[2019-06-17] MEDS ORDERED: ENOXAPARIN 40 MG/0.4 ML SQ SCH (18:00)
[2019-06-17] MEDS: ATORVASTATIN 40 MG TAB PO SCH (20:22)
[2019-06-17] MEDS: HYDROCODONE/APAP 7.5/325 MG TAB PO PRN (21:51)
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
[2019-06-17] MEDS ORDERED: CYCLOBENZAPRINE 10 MG TAB PO PRN (22:00)
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
[2019-06-17] MEDS ORDERED: HYDROCODONE/APAP 5/325 MG TAB PO PRN (22:02)
[2019-06-17] MEDS ORDERED: DOCUSATE NA/SENNA CONC 1 TAB PO PRN (22:02)
[2019-06-17] MEDS ORDERED: MELATONIN 5 MG TABLET PO PRN (22:02)
[2019-06-17 23:32] LABS: Urine Appearance CLEAR; Urine Bilirubin NEGATIVE (NEG); Urine Blood NEGATIVE (NEG); Urine Color DK YELLOW; Urine Glucose NEGATIVE (NEG); Urine Protein NEGATIVE (NEG); Urine Urobilinogen 0.2 mg/dL (0.2-1.0)
[2019-06-18 00:28] LABS: Urine Bacteria <20 /HPF (NONE SEEN); Urine Culture Reflex Order NOT NEEDED; Urine RBC NONE SEEN /HPF (NONE SEEN)
[2019-06-18] MEDS: LEVOTHYROXINE SOD 0.05 MG TABLET PO SCH (05:02)
[2019-06-18 06:09] LABS: Absolute Lymphocytes (CBC) 0.9 K/uL (0.7-4.9); Basophils % 1.2 % (0-1.3); Hematocrit 31.9 % (39.6-49.0); Lymphocytes % 15.8 % (15.3-44.8); MPV 9.3 fL (7.6-11.3); RBC Red Blood Cell Count 3.22 M/uL (4.33-5.43)
[2019-06-18 06:29] LABS: Albumin 2.7 g/dL (3.4-5.0); Magnesium 2.5 mg/dL (1.8-2.4); Prealbumin 7.4 mg/dL (20-40)
[2019-06-18] MEDS: ISOSORBIDE MONO SR 30 MG TAB PO SCH ×2 (08:00→12:15)
[2019-06-18] MEDS: LISINOPRIL 5 MG TAB PO SCH (08:00)
[2019-06-18] MEDS: DOCUSATE NA 100 MG CAP PO PRN (08:19)
[2019-06-18] MEDS: ASPIRIN EC 81 MG TAB PO SCH (08:19)
[2019-06-18] MEDS: HYDROCODONE/APAP 7.5/325 MG TAB PO PRN ×3 (08:19→21:39)
[2019-06-18] MEDS: ZINC SULFATE 220 MG CAP PO SCH (08:20)
[2019-06-18] MEDS: ALLOPURINOL 300 MG TAB PO SCH (08:20)
[2019-06-18] MEDS: APIXABAN 2.5 MG TABLET PO SCH ×2 (08:23→21:11)
--- NOTE | 2019-06-18 18:09 | FAST ---
ENCOUNTER DATE AND TIME: 06/18/2019 08:00 (CDT) NAME REGGIE AMBROSE DATE OF : 1940 DATE OF ADMISSION: 06/17/2019 17:06 (CDT) PHONE: AGE: 79 SSN# [id number] GENDER: Male ENCOUNTER PHYSICIAN: Dr. Matthew Martin ADMISSION DIAGNOSIS: - Orthopaedic Disorders 08 - Unilateral Hip Fracture (08.11) Right Femoral Neck Fracture. EATING: Activity did not occur on this shift EATING - SCORE: 0-UNK GROOMING: Activity did not occur on this shift GROOMING - SCORE: 0-UNK BATHING: Activity did not occur on this shift BATHING - SCORE: 0-UNK DRESSING - UPPER BODY: Activity did not occur on this shift Patient is not dressing in public clothing ARTICLES SCORE Total number of steps: 0 DRESSING - UPPER BODY - SCORE: 0-UNK DRESSING - LOWER BODY: Activity did not occur on this shift Patient is not dressing in public clothing ARTICLES SCORE Total number of steps: 0 DRESSING - LOWER BODY - SCORE: 0-UNK TOILETING: Activity did not occur on this shift TOILETING - SCORE: 0-UNK BLADDER MANAGEMENT: Activity did not occur on this shift BLADDER MANAGEMENT - SCORE: 7-IND BOWEL MANAGEMENT: Activity did not occur on this shift BOWEL MANAGEMENT - SCORE: 7-IND TRANSFERS: BED, CHAIR, WHEELCHAIR: TRANSFERS: BED, CHAIR, WHEELCHAIR - STEP 1: Does the patient require assistance of a person or device, or need extra time with bed, chair, or whe elchair transfers? Yes. TRANSFERS: BED, CHAIR, WHEELCHAIR - STEP 2: Does the patient require the assistance of a helper? Yes. TRANSFERS: BED, CHAIR, WHEELCHAIR - STEP 3: How much assistance does the patient require from the helper? Lifting of the patient TRANSFERS: BED, CHAIR, WHEELCHAIR - STEP 4: Does the helper lift the patient ONLY up? ONLY down? Up AND Down? ONLY up. TRANSFERS: BED, CHAIR, WHEELCHAIR - SCORE: 3-MOD TRANSFERS: TOILET: Activity did not occur on this shift TRANSFERS: TOILET - SCORE: 0-UNK TRANSFERS: SHOWER: Activity did not occur on this shift TRANSFERS: SHOWER - SCORE: 0-UNK TRANSFERS: TUB: Activity did not occur on this shift TRANSFERS: TUB - SCORE: 0-UNK LOCOMOTION: WALK: LOCOMOTION: WALK - STEP 1: Does the patient need help from a person or device, or need extra time to walk 150 feet? Yes. LOCOMOTION: WALK - STEP 2: How much assistance does the patient require to walk a minimum of 150 feet? Patient walks less than 1 50 feet - but more than 50 feet - with the assistance of only one helper LOCOMOTION: WALK - SCORE: 2-MAX LOCOMOTION: WHEELCHAIR: Activity did not occur on this shift LOCOMOTION: WHEELCHAIR - SCORE: 0-UNK LOCOMOTION: STAIRS: Activity did not occur on this shift LOCOMOTION: STAIRS - SCORE: 0-UNK COMPREHENSION: COMPREHENSION - SCORE: 0-UNK EXPRESSION EXPRESSION - SCORE: 0-UNK SOCIAL INTERACTION: SOCIAL INTERACTION - SCORE: 0-UNK PROBLEM SOLVING: PROBLEM SOLVING - SCORE: 0-UNK MEMORY: MEMORY - SCORE: 0-UNK SIGNATURE PANEL: The following modified sections: Transfers: Bed, Chair, Wheelchair - Score, Transfers: Toilet - Score , Locomotion: Walk - Score, Locomotion: Wheelchair - Score, Locomotion: Stairs - Score were [electron ically] signed by Ayan Flowers, PT on SunJun 18 2019 18:08:59 GMT-0500 (Central Daylight Time)
[2019-06-18] MEDS ORDERED: ENOXAPARIN 40 MG/0.4 ML SQ SCH (21:00)
[2019-06-18] MEDS: PROMOD 30 ML DOSE PO SCH (21:12)
[2019-06-18] MEDS: ATORVASTATIN 40 MG TAB PO SCH (21:12)
[2019-06-18] MEDS: dexAMETHasone 4 MG TAB PO SCH (21:40)
[2019-06-19] MEDS: LEVOTHYROXINE SOD 0.05 MG TABLET PO SCH (07:29)
[2019-06-19] MEDS: LISINOPRIL 5 MG TAB PO SCH (08:00)
[2019-06-19] MEDS: ISOSORBIDE MONO SR 30 MG TAB PO SCH (08:24)
[2019-06-19] MEDS: ALLOPURINOL 300 MG TAB PO SCH (08:25)
[2019-06-19] MEDS: ZINC SULFATE 220 MG CAP PO SCH (08:25)
[2019-06-19] MEDS: APIXABAN 2.5 MG TABLET PO SCH ×2 (08:25→21:06)
[2019-06-19] MEDS: ASPIRIN EC 81 MG TAB PO SCH (08:25)
[2019-06-19] MEDS: dexAMETHasone 4 MG TAB PO SCH (08:25)
[2019-06-19] MEDS: HYDROCODONE/APAP 7.5/325 MG TAB PO PRN (08:26)
[2019-06-19] MEDS: PROMOD 30 ML DOSE PO SCH ×2 (08:27→21:06)
--- NOTE | 2019-06-19 10:04 | P.RH.PN ---
Estimated Length of Stay: 12 Expected Discharge Date: 06/28/19 Discharge Disposition Plan: Home Family Support: Yes Fdc Goal: Mobility Vital Signs: Last Vital Signs Temp 96.8 F 06/19/19 07:04 Pulse 91 H 06/19/19 08:00 Resp 20 06/19/19 09:26 BP 103/75 06/19/19 08:00 Pulse Ox 96 06/19/19 09:26 Laboratory: Laboratory Last Values WBC 5.9 K/uL (4.3-10.9) 06/18/19 05:56 RBC 3.22 M/uL (4.33-5.43) L 06/18/19 05:56 Hgb 10.5 g/dL (13.6-17.9) L 06/18/19 05:56 Hct 31.9 % (39.6-49.0) L 06/18/19 05:56 MCV 99.1 fL (80-100) 06/18/19 05:56 MCH 32.6 pg (27.0-35.0) 06/18/19 05:56 MCHC 32.9 g/dL (32.0-36.0) 06/18/19 05:56 RDW 19.0 % (12.1-15.2) H 06/18/19 05:56 Plt Count 145 K/uL (152-406) L D 06/18/19 05:56 MPV 9.3 fL (7.6-11.3) 06/18/19 05:56 Neutrophils % 67.7 % (41.7-73.7) 06/18/19 05:56 Lymphocytes % 15.8 % (15.3-44.8) 06/18/19 05:56 Monocytes % 9.4 % (3.3-12.3) 06/18/19 05:56 Eosinophils % 5.9 % (0-4.4) H 06/18/19 05:56 Basophils % 1.2 % (0-1.3) 06/18/19 05:56 Absolute Neutrophils 4.0 K/uL (1.8-8.0) 06/18/19 05:56 Absolute Lymphocytes 0.9 K/uL (0.7-4.9) 06/18/19 05:56 Absolute Monocytes 0.6 K/uL (0.1-1.3) 06/18/19 05:56 Absolute Eosinophils 0.4 K/uL (0-0.5) 06/18/19 05:56 Absolute Basophils 0.1 K/uL (0-0.5) 06/18/19 05:56 Sodium 141 mmol/L (136-145) 06/18/19 05:56 Potassium 5.0 mmol/L (3.5-5.1) 06/18/19 05:56 Chloride 113 mmol/L (98-107) H 06/18/19 05:56 Carbon Dioxide 22 mmol/L (21-32) 06/18/19 05:56 BUN 52 mg/dL (7-18) H 06/18/19 05:56 Creatinine 1.34 mg/dL (0.55-1.3) H 06/18/19 05:56 Estimated GFR 51 mL/min (=/>90) L 06/18/19 05:56 Glucose 89 mg/dL (74-106) 06/18/19 05:56 Calcium 8.1 mg/dL (8.5-10.1) L 06/18/19 05:56 Magnesium 2.5 mg/dL (1.8-2.4) H 06/18/19 05:56 Albumin 2.7 g/dL (3.4-5.0) L 06/18/19 05:56 Prealbumin 7.4 mg/dL (20-40) L 06/18/19 05:56 Urine Color Dk yellow 06/17/19 20:30 Urine Appearance Clear 06/17/19 20:30 Urine pH 5.0 (5.0-7.0) 06/17/19 20:30 Ur Specific [place] 1.020 (1.005-1.030) 06/17/19 20:30 Urine Ketones Negative (NEG) 06/17/19 20:30 Urine Blood Negative (NEG) 06/17/19 20:30 Urine Nitrite Negative (NEG) 06/17/19 20:30 Urine Bilirubin Negative (NEG) 06/17/19 20:30 Urine Urobilinogen 0.2 mg/dL (0.2-1.0) 06/17/19 20:30 Ur Leukocyte Esterase Negative (NEG) 06/17/19 20:30 Urine RBC None seen /HPF (NONE SEEN) 06/17/19 20:30 Urine WBC <5 /HPF (<5) 06/17/19 20:30 Ur Squamous Epith Cells <5 /HPF (NONE SEEN) 06/17/19 20:30 Urine Bacteria <20 /HPF (NONE SEEN) 06/17/19 20:30 Urine Culture Reflexed Not needed 06/17/19 20:30 Urine Glucose Negative (NEG) 06/17/19 20:30 Urine Total Protein Negative (NEG) 06/17/19 20:30 Weight: 150 lb 8 oz Wound Present: No Closed Surgical Incision Present: Yes Negative Pressure Wound Therapy Present: No Physician Update: Patient with low back pain-ordered decadron x 24hrs along with flexeril. Doing well with PT/OT Medical Issues: DVT Prophylaxis- Eliquis 2.5mg BID PO Pain Issues: [place] 7.5/325mg Q4H PRN PO Nutritional Needs: increase protein in diet Functional Improvement: pt presents with severe weakness in the R LE. pt exhibits poor balance and stability during standing and functional mobility. pt experiences poor tolerance to functional activity due to pain, fatigue, weakness, and SoB. Skilled PT services are necessary to address the impairments and functional limitations. Functional Improvement Occupational Therapy: Patient with limiting pain to R LE , however, participatory during therapy. Will benefit from further OT to address strength/endurance and improved functional activity performance. Summary: Patient's care plan and salvage determiner goals have been reviewed and revised as necessary. Please see the Rehabilitation Signature page for all necessary signatures.
[2019-06-19] MEDS: ENSURE HIGH PROTEIN 237 ML CAN PO SCH ×2 (11:30→16:30)
[2019-06-19] MEDS ORDERED: HYDROCODONE/APAP 5/325 MG TAB PO PRN (12:01)
[2019-06-19] MEDS: TRAMADOL HCL 50 MG TAB PO PRN (12:47)
[2019-06-19] MEDS: DOCUSATE NA 100 MG CAP PO PRN (12:47)
--- NOTE | 2019-06-19 13:52 | FAST ---
ENCOUNTER DATE AND TIME: 06/19/2019 08:00 (CDT) NAME REGGIE AMBROSE DATE OF : 1940 DATE OF ADMISSION: 06/17/2019 17:06 (CDT) PHONE: AGE: 79 SSN# [id number] GENDER: Male ENCOUNTER PHYSICIAN: Dr. Matthew Martin ADMISSION DIAGNOSIS: - Orthopaedic Disorders 08 - Unilateral Hip Fracture (.) Right Femoral Neck Fracture. EATING: Activity did not occur on this shift EATING - SCORE: 0-UNK GROOMING: Activity did not occur on this shift GROOMING - SCORE: 0-UNK BATHING: Activity did not occur on this shift BATHING - SCORE: 0-UNK DRESSING - UPPER BODY: Activity did not occur on this shift Patient is not dressing in public clothing ARTICLES SCORE Total number of steps: 0 DRESSING - UPPER BODY - SCORE: 0-UNK DRESSING - LOWER BODY: Activity did not occur on this shift Patient is not dressing in public clothing ARTICLES SCORE Total number of steps: 0 DRESSING - LOWER BODY - SCORE: 0-UNK TOILETING: Activity did not occur on this shift TOILETING - SCORE: 0-UNK BLADDER MANAGEMENT: Activity did not occur on this shift BLADDER MANAGEMENT - SCORE: 7-IND BOWEL MANAGEMENT: Activity did not occur on this shift BOWEL MANAGEMENT - SCORE: 7-IND TRANSFERS: BED, CHAIR, WHEELCHAIR: TRANSFERS: BED, CHAIR, WHEELCHAIR - STEP 1: Does the patient require assistance of a person or device, or need extra time with bed, chair, or whe elchair transfers? Yes. TRANSFERS: BED, CHAIR, WHEELCHAIR - STEP 2: Does the patient require the assistance of a helper? Yes. TRANSFERS: BED, CHAIR, WHEELCHAIR - STEP 3: How much assistance does the patient require from the helper? Steadying/guiding assistance TRANSFERS: BED, CHAIR, WHEELCHAIR - SCORE: 4-MIN TRANSFERS: TOILET: Activity did not occur on this shift TRANSFERS: TOILET - SCORE: 0-UNK TRANSFERS: SHOWER: Activity did not occur on this shift TRANSFERS: SHOWER - SCORE: 0-UNK TRANSFERS: TUB: Activity did not occur on this shift TRANSFERS: TUB - SCORE: 0-UNK LOCOMOTION: WALK: LOCOMOTION: WALK - STEP 1: Does the patient need help from a person or device, or need extra time to walk 150 feet? Yes. LOCOMOTION: WALK - STEP 2: How much assistance does the patient require to walk a minimum of 150 feet? Only supervision, cuing, or coaxing LOCOMOTION: WALK - SCORE: 5-SUP LOCOMOTION: WHEELCHAIR: Activity did not occur on this shift LOCOMOTION: WHEELCHAIR - SCORE: 0-UNK LOCOMOTION: STAIRS: Activity did not occur on this shift LOCOMOTION: STAIRS - SCORE: 0-UNK COMPREHENSION: COMPREHENSION - SCORE: 0-UNK EXPRESSION EXPRESSION - SCORE: 0-UNK SOCIAL INTERACTION: SOCIAL INTERACTION - SCORE: 0-UNK PROBLEM SOLVING: PROBLEM SOLVING - SCORE: 0-UNK MEMORY: MEMORY - SCORE: 0-UNK SIGNATURE PANEL: The following modified sections: Transfers: Bed, Chair, Wheelchair - Score, Transfers: Toilet - Score , Locomotion: Walk - Score, Locomotion: Wheelchair - Score, Locomotion: Stairs - Score were [electron luci] signed by Kiley Chester PTA on SunJun 19 2019 13:52:09 T-0500 (Central Daylight Time)
[2019-06-19] MEDS: ATORVASTATIN 40 MG TAB PO SCH (21:06)
[2019-06-19] MEDS: HYDROCODONE/APAP 5/325 MG TAB PO PRN (21:09)
--- NOTE | 2019-06-20 03:39 | FAST ---
SHIFT START DATE/TIME: 06/19/2019 19:00 (CDT) SHIFT END DATE/TIME: 06/20/2019 07:00 (CDT) NAME REGGIE AMBROSE DATE OF : 1940 DATE OF ADMISSION: 06/17/2019 17:06 (CDT) PHONE: AGE: 79 SSN# [id number] GENDER: Male ENCOUNTER PHYSICIAN: Dr. Matthew Martin ADMISSION DIAGNOSIS: - Orthopaedic Disorders 08 - Unilateral Hip Fracture (08.) Right Femoral Neck Fracture. EATING: Activity did not occur on this shift EATING - SCORE: 0-UNK GROOMING: Activity did not occur on this shift GROOMING - SCORE: 0-UNK BATHING: Activity did not occur on this shift BATHING - SCORE: 0-UNK DRESSING - UPPER BODY: Activity did not occur on this shift ARTICLES SCORE Total number of steps: 0 DRESSING - UPPER BODY - SCORE: 0-UNK DRESSING - LOWER BODY: Activity did not occur on this shift ARTICLES SCORE Total number of steps: 0 DRESSING - LOWER BODY - SCORE: 0-UNK TOILETING: TOILETING - SCORE: 0-UNK BLADDER MANAGEMENT: BLADDER MANAGEMENT - STEP 1: Does the patient control the bladder completely and intentionally without equipment or devices or med ications, and is always continent? No. BLADDER MANAGEMENT - STEP 2: Does the patient require the assistance of a helper? Yes. BLADDER MANAGEMENT - STEP 3: How much assistance does the patient require from the helper? Only set-up of equipment - such as plac ing it within reach of the patient or emptying a device - to maintain either satisfactory voiding pat tern or managing an external device, such as an absorbent pad, ileal device, or catheter BLADDER MANAGEMENT - SCORE: 5-SUP BLADDER MANAGEMENT - FREQUENCY OF ACCIDENTS: BLADDER MANAGEMENT(FA) - STEP 1: How many accidents has the patient had during the current shift? 0 BOWEL MANAGEMENT: Colostomy care provided by [facility] (patient performs less than 25% of colostomy care). BOWEL MANAGEMENT - SCORE: 1-DEP BOWEL MANAGEMENT - FREQUENCY OF ACCIDENTS: BOWEL MANAGEMENT(FA) - STEP 1: How many accidents has the patient had during the current shift? 0 BOWEL MANAGEMENT(FA) - COMMENTS: Has ileostomy TRANSFERS: BED, CHAIR, WHEELCHAIR: Activity did not occur on this shift TRANSFERS: BED, CHAIR, WHEELCHAIR - SCORE: 0-UNK TRANSFERS: TOILET: Activity did not occur on this shift TRANSFERS: TOILET - SCORE: 0-UNK TRANSFERS: SHOWER: Activity did not occur on this shift TRANSFERS: SHOWER - SCORE: 0-UNK TRANSFERS: TUB: Activity did not occur on this shift TRANSFERS: TUB - SCORE: 0-UNK LOCOMOTION: WALK: Activity did not occur on this shift LOCOMOTION: WALK - SCORE: 0-UNK LOCOMOTION: WHEELCHAIR: Activity did not occur on this shift LOCOMOTION: WHEELCHAIR - SCORE: 0-UNK COMPREHENSION: COMPREHENSION: TYPE: Both COMPREHENSION - STEP 1: Does the patient require help from a person or device, or need extra time to understand complex and a bstract ideas (such as current events, finances, discharge planning, medical issues, relationships, e tc)? No. COMPREHENSION - STEP 2: Does the patient need extra time, require an assistive device (such as glasses for visual comprehensi on or a hearing aid for auditory comprehension) or does s/he have mild difficulty understanding compl ex and abstract information? Yes. COMPREHENSION - SCORE: 6-ELEUTERIO EXPRESSION EXPRESSION: TYPE: Both EXPRESSION - STEP 1: Does the patient require help from a person or device, or need extra time expressing complex and abst ract ideas (such as current events, finances, discharge planning, medical issues, relationships, etc) ? No. EXPRESSION - STEP 2: Does the patient need extra time, require an assistive device (such as augmentive communication syste m or a communication board), OR does s/he have mild difficulty expressing complex and abstract ideas (including mild dysarthria or mild word-find problems)? Yes. EXPRESSION - SCORE: 6-ELEUTERIO SOCIAL INTERACTION: SOCIAL INTERACTION - STEP 1: Does the patient require a helper to interact with others in social and therapeutic situations? No. SOCIAL INTERACTION - STEP 2: Does the patient need extra time in social situations, OR does s/he interact with staff, other patien ts, and family members ONLY in structured environments, OR does s/he require medication for social in teraction? Yes, patient needs extra time SOCIAL INTERACTION - SCORE: 6-ELEUTERIO PROBLEM SOLVING: PROBLEM SOLVING - STEP 1: Does the patient need help from a person or device, or need extra time to solve complex problems such as managing a checking account or confronting interpersonal problems? No. PROBLEM SOLVING - STEP 2: Does the patient require extra time to make decisions or solve problems, OR does s/he have slight dif ficulty reading, initiating, or self-correcting in unfamiliar situations? Yes, patient needs extra ti me. PROBLEM SOLVING - SCORE: 6-ELEUTERIO MEMORY: MEMORY - STEP 1: Does the patient need help from a person or device, or need extra time to remember frequently encount ered people, daily routines, and executing requests? No. MEMORY - STEP 2: Does the patient have slight difficulty recognizing frequently encountered people, daily routines, or executing requests without the need for repetition or using self-initiated or environmental cues to remember? Yes. MEMORY - SCORE: 6-ELEUTERIO SIGNATURE PANEL: The following modified sections: Eating - Score, Grooming - Score, Bathing - Score, Dressing - Upper Body - Score, Dressing - Lower Body - Score, Bladder Management - Score, Bowel Management - Score, Zackery wel Management(FA) - Comments:, Transfers: Bed, Chair, Wheelchair - Score, Transfers: Toilet - Score, Transfers: Shower - Score, Transfers: Tub - Score, Locomotion: Walk - Score, Locomotion: Wheelchair - Score, Comprehension - Score, Expression - Score, Social Interaction - Score, Problem Solving - Sco re, Memory - Score were [electronically] signed by Kat Zambrano RN on SunJun 20 2019 03:38:22 G MT-0500 (Central Daylight Time)
[2019-06-20] MEDS: LEVOTHYROXINE SOD 0.05 MG TABLET PO SCH (06:48)
[2019-06-20 06:55] LABS: Absolute Lymphocytes (CBC) 0.7 K/uL (0.7-4.9); Basophils % 0.4 % (0-1.3); Hematocrit 30.5 % (39.6-49.0); RBC Red Blood Cell Count 3.02 M/uL (4.33-5.43)
[2019-06-20 07:15] LABS: Albumin 2.7 g/dL (3.4-5.0); Bilirubin Total 1.1 mg/dL (0.2-1.0); Magnesium 2.5 mg/dL (1.8-2.4); Phosphorus 4.6 mg/dL (2.5-4.9); Protein, Total 5.2 g/dL (6.4-8.2)
[2019-06-20 07:21] LABS: Potassium 5.6 mmol/L (3.5-5.1)
[2019-06-20] MEDS: ENSURE HIGH PROTEIN 237 ML CAN PO SCH ×3 (07:30→15:57)
[2019-06-20] MEDS: HYDROCODONE/APAP 5/325 MG TAB PO PRN (08:56)
[2019-06-20] MEDS: ZINC SULFATE 220 MG CAP PO SCH (08:58)
[2019-06-20] MEDS: ALLOPURINOL 300 MG TAB PO SCH (08:58)
[2019-06-20] MEDS: ASPIRIN EC 81 MG TAB PO SCH (08:58)
[2019-06-20] MEDS: APIXABAN 2.5 MG TABLET PO SCH ×2 (08:58→19:30)
[2019-06-20] MEDS: ISOSORBIDE MONO SR 30 MG TAB PO SCH (08:58)
[2019-06-20] MEDS: PROMOD 30 ML DOSE PO SCH ×2 (08:59→19:29)
[2019-06-20] MEDS ORDERED: NA CHLORIDE 0.9% 1,000 ML IV SCH (11:00)
[2019-06-20] MEDS: TRAMADOL HCL 50 MG TAB PO PRN (13:03)
[2019-06-20] MEDS: NA CHLORIDE 0.9% 1,000 ML IV SCH (13:07)
--- NOTE | 2019-06-20 16:02 | FAST ---
ENCOUNTER DATE AND TIME: 06/20/2019 08:00 (CDT) NAME REGGIE AMBROSE DATE OF : 1940 DATE OF ADMISSION: 06/17/2019 17:06 (CDT) PHONE: AGE: 79 SSN# [id number] GENDER: Male ENCOUNTER PHYSICIAN: Dr. Matthew Martin ADMISSION DIAGNOSIS: - Orthopaedic Disorders 08 - Unilateral Hip Fracture (08.11) Right Femoral Neck Fracture. EATING: Activity did not occur on this shift EATING - SCORE: 0-UNK GROOMING: Activity did not occur on this shift GROOMING - SCORE: 0-UNK BATHING: Activity did not occur on this shift BATHING - SCORE: 0-UNK DRESSING - UPPER BODY: Activity did not occur on this shift Patient is not dressing in public clothing ARTICLES SCORE Total number of steps: 0 DRESSING - UPPER BODY - SCORE: 0-UNK DRESSING - LOWER BODY: Activity did not occur on this shift Patient is not dressing in public clothing ARTICLES SCORE Total number of steps: 0 DRESSING - LOWER BODY - SCORE: 0-UNK TOILETING: Activity did not occur on this shift TOILETING - SCORE: 0-UNK BLADDER MANAGEMENT: Activity did not occur on this shift BLADDER MANAGEMENT - SCORE: 7-IND BOWEL MANAGEMENT: Activity did not occur on this shift BOWEL MANAGEMENT - SCORE: 7-IND TRANSFERS: BED, CHAIR, WHEELCHAIR: TRANSFERS: BED, CHAIR, WHEELCHAIR - STEP 1: Does the patient require assistance of a person or device, or need extra time with bed, chair, or whe elchair transfers? Yes. TRANSFERS: BED, CHAIR, WHEELCHAIR - STEP 2: Does the patient require the assistance of a helper? Yes. TRANSFERS: BED, CHAIR, WHEELCHAIR - STEP 3: How much assistance does the patient require from the helper? Steadying/guiding assistance TRANSFERS: BED, CHAIR, WHEELCHAIR - SCORE: 4-MIN TRANSFERS: TOILET: Activity did not occur on this shift TRANSFERS: TOILET - SCORE: 0-UNK TRANSFERS: SHOWER: Activity did not occur on this shift TRANSFERS: SHOWER - SCORE: 0-UNK TRANSFERS: TUB: Activity did not occur on this shift TRANSFERS: TUB - SCORE: 0-UNK LOCOMOTION: WALK: LOCOMOTION: WALK - STEP 1: Does the patient need help from a person or device, or need extra time to walk 150 feet? Yes. LOCOMOTION: WALK - STEP 2: How much assistance does the patient require to walk a minimum of 150 feet? Only incidental help such as contact guarding or steadying LOCOMOTION: WALK - SCORE: 4-MIN LOCOMOTION: WHEELCHAIR: LOCOMOTION: WHEELCHAIR - STEP 1: Does the patient need help to go 150 feet in a wheelchair? Yes. LOCOMOTION: WHEELCHAIR - STEP 2: How much assistance does the patient need from the helper? Only supervision, cuing, or coaxing LOCOMOTION: WHEELCHAIR - SCORE: 5-SUP LOCOMOTION: STAIRS: Activity did not occur on this shift LOCOMOTION: STAIRS - SCORE: 0-UNK COMPREHENSION: COMPREHENSION - SCORE: 0-UNK EXPRESSION EXPRESSION - SCORE: 0-UNK SOCIAL INTERACTION: SOCIAL INTERACTION - SCORE: 0-UNK PROBLEM SOLVING: PROBLEM SOLVING - SCORE: 0-UNK MEMORY: MEMORY - SCORE: 0-UNK SIGNATURE PANEL: The following modified sections: Transfers: Bed, Chair, Wheelchair - Score, Transfers: Toilet - Score , Locomotion: Walk - Score, Locomotion: Wheelchair - Score, Locomotion: Stairs - Score were [tiffanie verma] signed by Kiley Chester PTA on SunJun 20 2019 16:02:08 T-0500 (Central Daylight Time)
[2019-06-20 18:27] LABS: Potassium 4.7 mmol/L (3.5-5.1)
[2019-06-20] MEDS: ATORVASTATIN 40 MG TAB PO SCH (20:04)
[2019-06-21] MEDS: NA CHLORIDE 0.9% 1,000 ML IV SCH (00:43)
[2019-06-21] MEDS: HYDROCODONE/APAP 5/325 MG TAB PO PRN ×2 (01:52→07:35)
[2019-06-21] MEDS: LEVOTHYROXINE SOD 0.05 MG TABLET PO SCH (06:57)
[2019-06-21] MEDS: ENSURE HIGH PROTEIN 237 ML CAN PO SCH ×3 (07:30→15:33)
[2019-06-21] MEDS: PROMOD 30 ML DOSE PO SCH ×2 (09:09→21:21)
[2019-06-21] MEDS: APIXABAN 2.5 MG TABLET PO SCH ×2 (09:10→21:21)
[2019-06-21] MEDS: ZINC SULFATE 220 MG CAP PO SCH (09:10)
[2019-06-21] MEDS: ALLOPURINOL 300 MG TAB PO SCH (09:10)
[2019-06-21] MEDS: ASPIRIN EC 81 MG TAB PO SCH (09:10)
[2019-06-21] MEDS: ISOSORBIDE MONO SR 30 MG TAB PO SCH (09:12)
--- NOTE | 2019-06-21 09:28 | FAST ---
SHIFT START DATE/TIME: 06/21/2019 07:00 (CDT) SHIFT END DATE/TIME: 06/21/2019 19:00 (CDT) NAME REGGIE AMBROSE DATE OF : 1940 DATE OF ADMISSION: 06/17/2019 17:06 (CDT) PHONE: AGE: 79 SSN# [id number] GENDER: Male ENCOUNTER PHYSICIAN: Dr. Matthew Martin ADMISSION DIAGNOSIS: - Orthopaedic Disorders 08 - Unilateral Hip Fracture (08.11) Right Femoral Neck Fracture. EATING: EATING - STEP 1: Does the patient require the assistance of a person or device, or need extra time when eating? Yes. EATING - STEP 2: Does the patient require the assistance of a helper? Yes. EATING - STEP 3: Does the patient perform half or more of the eating tasks? Yes. EATING - STEP 4: Does the patient need only supervision, cuing, coaxing OR help to apply an orthosis OR help to cut fo od, open containers, pour liquids, or butter bread? Yes. EATING - SCORE: 5-SUP GROOMING: Comb/brush hair Oral care Wash, rinse, and dry face Wash, rinse, and dry hands GROOMING - STEP 1: Does the patient require the assistance of a person or device, or need extra time when grooming? Yes. GROOMING - STEP 2: Does the patient require the assistance of a helper? Yes. GROOMING - STEP 3: How much assistance does the patient require from the helper? Only prior equipment preparation/set up from the helper GROOMING - SCORE: 5-SUP BATHING: Activity did not occur on this shift BATHING - SCORE: 0-UNK DRESSING - UPPER BODY: Activity did not occur on this shift ARTICLES SCORE Total number of steps: 0 DRESSING - UPPER BODY - SCORE: 0-UNK DRESSING - LOWER BODY: Activity did not occur on this shift ARTICLES SCORE Total number of steps: 0 DRESSING - LOWER BODY - SCORE: 0-UNK TOILETING: TOILETING - STEP 1: Does the patient require the assistance of a person or device, or need extra time with toileting? Yes . TOILETING - STEP 2: Does the patient require the assistance of a helper? Yes. TOILETING - STEP 3: How much assistance does the patient require from the helper? Hands-on assistance from the helper TOILETING - STEP 4: Of the 3 tasks: 1) Adjusting clothing prior to use, 2) Cleansing of perineal area, 3) Adjusting clot barb after use; How many tasks does the patient perform WITHOUT assistance of the helper? Two tasks TOILETING - SCORE: 3-MOD BLADDER MANAGEMENT: BLADDER MANAGEMENT - STEP 1: Does the patient control the bladder completely and intentionally without equipment or devices or med ications, and is always continent? No. BLADDER MANAGEMENT - STEP 2: Does the patient require the assistance of a helper? No, patient requires and independently uses an a ssistive device, such as a urinal, bedpan, bedside commode, catheter, absorbent pad, or collecting de vice BLADDER MANAGEMENT - SCORE: 6-ELEUTERIO BOWEL MANAGEMENT: Colostomy care provided by [place] (patient performs less than 25% of colostomy care). BOWEL MANAGEMENT - SCORE: 1-DEP TRANSFERS: BED, CHAIR, WHEELCHAIR: TRANSFERS: BED, CHAIR, WHEELCHAIR - STEP 1: Does the patient require assistance of a person or device, or need extra time with bed, chair, or whe elchair transfers? Yes. TRANSFERS: BED, CHAIR, WHEELCHAIR - STEP 2: Does the patient require the assistance of a helper? Yes. TRANSFERS: BED, CHAIR, WHEELCHAIR - STEP 3: How much assistance does the patient require from the helper? Lifting of the patient TRANSFERS: BED, CHAIR, WHEELCHAIR - STEP 4: Does the helper lift the patient ONLY up? ONLY down? Up AND Down? ONLY up. TRANSFERS: BED, CHAIR, WHEELCHAIR - SCORE: 3-MOD TRANSFERS: TOILET: TRANSFERS: TOILET - STEP 1: Does the patient require the assistance of a person or device, or need extra time with toilet transfe rs? Yes. TRANSFERS: TOILET - STEP 2: Does the patient require the assistance of a helper? Yes. TRANSFERS: TOILET - STEP 3: How much assistance does the patient require from the helper? Patient performs half or more of the tr ansferring tasks TRANSFERS: TOILET - STEP 4: Does the patient need only incidental help such as contact guard or steadying during toilet transfer? No. Patient needs more than incidental help TRANSFERS: TOILET - SCORE: 3-MOD TRANSFERS: SHOWER: Activity did not occur on this shift TRANSFERS: SHOWER - SCORE: 0-UNK TRANSFERS: TUB: Activity did not occur on this shift TRANSFERS: TUB - SCORE: 0-UNK LOCOMOTION: WALK: Activity did not occur on this shift LOCOMOTION: WALK - SCORE: 0-UNK LOCOMOTION: WHEELCHAIR: Activity did not occur on this shift LOCOMOTION: WHEELCHAIR - SCORE: 0-UNK COMPREHENSION: COMPREHENSION: TYPE: Both COMPREHENSION - STEP 1: Does the patient require help from a person or device, or need extra time to understand complex and a bstract ideas (such as current events, finances, discharge planning, medical issues, relationships, e tc)? No. COMPREHENSION - STEP 2: Does the patient need extra time, require an assistive device (such as glasses for visual comprehensi on or a hearing aid for auditory comprehension) or does s/he have mild difficulty understanding compl ex and abstract information? Yes. COMPREHENSION - SCORE: 6-ELEUTERIO EXPRESSION EXPRESSION: TYPE: Both EXPRESSION - STEP 1: Does the patient require help from a person or device, or need extra time expressing complex and abst ract ideas (such as current events, finances, discharge planning, medical issues, relationships, etc) ? No. EXPRESSION - STEP 2: Does the patient need extra time, require an assistive device (such as augmentive communication syste m or a communication board), OR does s/he have mild difficulty expressing complex and abstract ideas (including mild dysarthria or mild word-find problems)? Yes. EXPRESSION - SCORE: 6-ELEUTERIO SOCIAL INTERACTION: SOCIAL INTERACTION - STEP 1: Does the patient require a helper to interact with others in social and therapeutic situations? No. SOCIAL INTERACTION - STEP 2: Does the patient need extra time in social situations, OR does s/he interact with staff, other patien ts, and family members ONLY in structured environments, OR does s/he require medication for social in teraction? Yes, patient needs extra time SOCIAL INTERACTION - SCORE: 6-ELEUTERIO PROBLEM SOLVING: PROBLEM SOLVING - STEP 1: Does the patient need help from a person or device, or need extra time to solve complex problems such as managing a checking account or confronting interpersonal problems? No. PROBLEM SOLVING - STEP 2: Does the patient require extra time to make decisions or solve problems, OR does s/he have slight dif ficulty reading, initiating, or self-correcting in unfamiliar situations? Yes, patient needs extra ti me. PROBLEM SOLVING - SCORE: 6-ELEUTERIO MEMORY: MEMORY - STEP 1: Does the patient need help from a person or device, or need extra time to remember frequently encount ered people, daily routines, and executing requests? No. MEMORY - STEP 2: Does the patient have slight difficulty recognizing frequently encountered people, daily routines, or executing requests without the need for repetition or using self-initiated or environmental cues to remember? Yes. MEMORY - SCORE: 6-ELEUTERIO SIGNATURE PANEL: The following modified sections: Eating - Score, Grooming - Score, Bathing - Score, Dressing - Upper Body - Score, Dressing - Lower Body - Score, Toileting - Score, Bladder Management - Score, Bowel Man agement - Score, Transfers: Bed, Chair, Wheelchair - Score, Transfers: Toilet - Score, Transfers: Crystal wer - Score, Transfers: Tub - Score, Locomotion: Walk - Score, Locomotion: Wheelchair - Score, Compre hension - Score, Expression - Score, Social Interaction - Score, Problem Solving - Score, Memory - Sc ore were [electronically] signed by Rai Pate on Sat Jun 21 2019 09:27:33 T-0500 (Central Daylight Time)
--- NOTE | 2019-06-21 10:06 | FAST ---
ENCOUNTER DATE AND TIME: 06/18/2019 08:00 (CDT) NAME REGGIE AMBROSE DATE OF : 1940 DATE OF ADMISSION: 06/17/2019 17:06 (CDT) PHONE: AGE: 79 SSN# [id number] GENDER: Male ENCOUNTER PHYSICIAN: Dr. Matthew Martin ADMISSION DIAGNOSIS: - Orthopaedic Disorders 08 - Unilateral Hip Fracture (08.11) Right Femoral Neck Fracture. EATING: Activity did not occur on this shift EATING - SCORE: 0-UNK GROOMING: Comb/brush hair Oral care Wash, rinse, and dry face Wash, rinse, and dry hands GROOMING - STEP 1: Does the patient require the assistance of a person or device, or need extra time when grooming? No. GROOMING - SCORE: 7-IND BATHING: Abdomen Buttocks Chest Left arm Left lower leg and foot Left upper leg Perineal area Right arm Right lower leg and foot Right upper leg BATHING - STEP 1: Does the patient require the assistance of a person or device, or need extra time when bathing? Yes. BATHING - STEP 2: Does the patient require the assistance of a helper? Yes. BATHING - STEP 3: How much assistance does the patient require from the helper? More than just incidental help BATHING - STEP 4: What percent of the body parts did the patient bathe WITHOUT the helper? Half or more of the body par ts BATHING - SCORE: 3-MOD DRESSING - UPPER BODY: Patient is not dressing in public clothing ARTICLES SCORE Total number of steps: 0 DRESSING - UPPER BODY - SCORE: 0-UNK DRESSING - LOWER BODY: Sock - Left foot (one step) Sock - Right foot (one step) ARTICLES SCORE Total number of steps: 2 DRESSING - LOWER BODY - STEP 1: Does the patient require help from a person or device, or need extra time when dressing below the shawna st? Yes. DRESSING - LOWER BODY - STEP 2: Does the patient require the assistance of a helper? Yes. DRESSING - LOWER BODY - STEP 3: Does the helper touch the patient while dressing? Yes. DRESSING - LOWER BODY - STEP 4: How many of the total steps does the patient complete on his/her own? 0 DRESSING - LOWER BODY - STEP 5: Does patient require total assistance for dressing below the waist such as the helper holding clothin g and performing basically all the activities? Yes. DRESSING - LOWER BODY - SCORE: 1-DEP TOILETING: Activity did not occur on this shift TOILETING - SCORE: 0-UNK BLADDER MANAGEMENT: Activity did not occur on this shift BLADDER MANAGEMENT - SCORE: 7-IND BOWEL MANAGEMENT: Activity did not occur on this shift BOWEL MANAGEMENT - SCORE: 7-IND TRANSFERS: BED, CHAIR, WHEELCHAIR: Activity did not occur on this shift TRANSFERS: BED, CHAIR, WHEELCHAIR - SCORE: 0-UNK TRANSFERS: TOILET: Activity did not occur on this shift TRANSFERS: TOILET - SCORE: 0-UNK TRANSFERS: SHOWER: TRANSFERS: SHOWER - STEP 1: Does the patient require the assistance of a person or device, or need extra time with shower transfe rs? Yes. TRANSFERS: SHOWER - STEP 2: Does the patient require the assistance of a helper? Yes. TRANSFERS: SHOWER - STEP 3: How much assistance does the patient require from the helper? More than incidental help TRANSFERS: SHOWER - STEP 4: How much more help does the patient require from the helper? Lifting the patient up AND down from the wheelchair onto the shower chair TRANSFERS: SHOWER - SCORE: 2-MAX TRANSFERS: TUB: Activity did not occur on this shift TRANSFERS: TUB - SCORE: 0-UNK LOCOMOTION: WALK: Activity did not occur on this shift LOCOMOTION: WALK - SCORE: 0-UNK LOCOMOTION: WHEELCHAIR: Activity did not occur on this shift LOCOMOTION: WHEELCHAIR - SCORE: 0-UNK LOCOMOTION: STAIRS: Activity did not occur on this shift LOCOMOTION: STAIRS - SCORE: 0-UNK COMPREHENSION: COMPREHENSION: TYPE: Both COMPREHENSION - STEP 1: Does the patient require help from a person or device, or need extra time to understand complex and a bstract ideas (such as current events, finances, discharge planning, medical issues, relationships, e tc)? No. COMPREHENSION - STEP 2: Does the patient need extra time, require an assistive device (such as glasses for visual comprehensi on or a hearing aid for auditory comprehension) or does s/he have mild difficulty understanding compl ex and abstract information? Yes. COMPREHENSION - SCORE: 6-ELEUTERIO EXPRESSION EXPRESSION: TYPE: Both EXPRESSION - STEP 1: Does the patient require help from a person or device, or need extra time expressing complex and abst ract ideas (such as current events, finances, discharge planning, medical issues, relationships, etc) ? No. EXPRESSION - STEP 2: Does the patient need extra time, require an assistive device (such as augmentive communication syste m or a communication board), OR does s/he have mild difficulty expressing complex and abstract ideas (including mild dysarthria or mild word-find problems)? Yes. EXPRESSION - SCORE: 6-ELEUTERIO SOCIAL INTERACTION: SOCIAL INTERACTION - STEP 1: Does the patient require a helper to interact with others in social and therapeutic situations? No. SOCIAL INTERACTION - STEP 2: Does the patient need extra time in social situations, OR does s/he interact with staff, other patien ts, and family members ONLY in structured environments, OR does s/he require medication for social in teraction? Yes, patient needs extra time SOCIAL INTERACTION - SCORE: 6-ELEUTERIO PROBLEM SOLVING: PROBLEM SOLVING - STEP 1: Does the patient need help from a person or device, or need extra time to solve complex problems such as managing a checking account or confronting interpersonal problems? Yes. PROBLEM SOLVING - STEP 2: Does the patient solve basic routine problems half or more of the time? Yes. PROBLEM SOLVING - STEP 3: How often does the patient need help to solve basic routine problems? Less than 10% of the time PROBLEM SOLVING - SCORE: 5-SUP MEMORY: MEMORY - STEP 1: Does the patient need help from a person or device, or need extra time to remember frequently encount ered people, daily routines, and executing requests? No. MEMORY - STEP 2: Does the patient have slight difficulty recognizing frequently encountered people, daily routines, or executing requests without the need for repetition or using self-initiated or environmental cues to remember? Yes. MEMORY - SCORE: 6-ELEUTERIO SIGNATURE PANEL: The following modified sections: Eating - Score, Grooming - Score, Bathing - Score, Dressing - Upper Body - Score, Dressing - Lower Body - Score, Toileting - Score, Transfers: Bed, Chair, Wheelchair - S core, Transfers: Toilet - Score, Transfers: Tub - Score, Transfers: Shower - Score, Comprehension - S core, Expression - Score, Social Interaction - Score, Problem Solving - Score, Memory - Score were [e lectronically] signed by Brenda Woodard OT on SunJun 21 2019 10:05:57 T-0500 (Central Daylight T johnny)
[2019-06-21] MEDS: TRAMADOL HCL 50 MG TAB PO PRN (12:19)
--- NOTE | 2019-06-21 13:37 | FAST ---
ENCOUNTER DATE AND TIME: 06/21/2019 08:00 (CDT) NAME REGGIE AMBROSE DATE OF : 1940 DATE OF ADMISSION: 06/17/2019 17:06 (CDT) PHONE: AGE: 79 SSN# [id number] GENDER: Male ENCOUNTER PHYSICIAN: Dr. Matthew Martin ADMISSION DIAGNOSIS: - Orthopaedic Disorders 08 - Unilateral Hip Fracture (08.11) Right Femoral Neck Fracture. EATING: Activity did not occur on this shift EATING - SCORE: 0-UNK GROOMING: Activity did not occur on this shift GROOMING - SCORE: 0-UNK BATHING: Activity did not occur on this shift BATHING - SCORE: 0-UNK DRESSING - UPPER BODY: Activity did not occur on this shift Patient is not dressing in public clothing ARTICLES SCORE Total number of steps: 0 DRESSING - UPPER BODY - SCORE: 0-UNK DRESSING - LOWER BODY: Activity did not occur on this shift Patient is not dressing in public clothing ARTICLES SCORE Total number of steps: 0 DRESSING - LOWER BODY - SCORE: 0-UNK TOILETING: Activity did not occur on this shift TOILETING - SCORE: 0-UNK BLADDER MANAGEMENT: Activity did not occur on this shift BLADDER MANAGEMENT - SCORE: 7-IND BOWEL MANAGEMENT: Activity did not occur on this shift BOWEL MANAGEMENT - SCORE: 7-IND TRANSFERS: BED, CHAIR, WHEELCHAIR: Activity did not occur on this shift TRANSFERS: BED, CHAIR, WHEELCHAIR - SCORE: 0-UNK TRANSFERS: TOILET: Activity did not occur on this shift TRANSFERS: TOILET - SCORE: 0-UNK TRANSFERS: SHOWER: Activity did not occur on this shift TRANSFERS: SHOWER - SCORE: 0-UNK TRANSFERS: TUB: Activity did not occur on this shift TRANSFERS: TUB - SCORE: 0-UNK LOCOMOTION: WALK: LOCOMOTION: WALK - STEP 1: Does the patient need help from a person or device, or need extra time to walk 150 feet? Yes. LOCOMOTION: WALK - STEP 2: How much assistance does the patient require to walk a minimum of 150 feet? Only incidental help such as contact guarding or steadying LOCOMOTION: WALK - SCORE: 4-MIN LOCOMOTION: WHEELCHAIR: LOCOMOTION: WHEELCHAIR - STEP 1: Does the patient need help to go 150 feet in a wheelchair? Yes. LOCOMOTION: WHEELCHAIR - STEP 2: How much assistance does the patient need from the helper? Only incidental help such as around corner s or over thresholds LOCOMOTION: WHEELCHAIR - SCORE: 4-MIN LOCOMOTION: STAIRS: Activity did not occur on this shift LOCOMOTION: STAIRS - SCORE: 0-UNK COMPREHENSION: COMPREHENSION - SCORE: 0-UNK EXPRESSION EXPRESSION - SCORE: 0-UNK SOCIAL INTERACTION: SOCIAL INTERACTION - SCORE: 0-UNK PROBLEM SOLVING: PROBLEM SOLVING - SCORE: 0-UNK MEMORY: MEMORY - SCORE: 0-UNK SIGNATURE PANEL: The following modified sections: Transfers: Bed, Chair, Wheelchair - Score, Transfers: Toilet - Score , Locomotion: Walk - Score, Locomotion: Wheelchair - Score, Locomotion: Stairs - Score were [electron ically] signed by Jillian Ball PTA on Sat Jun 21 2019 13:36:22 T-0500 (Central Daylight Time)
--- NOTE | 2019-06-21 15:51 | FAST ---
ENCOUNTER DATE AND TIME: 06/21/2019 08:00 (CDT) NAME REGGIE AMBROSE DATE OF : 1940 DATE OF ADMISSION: 06/17/2019 17:06 (CDT) PHONE: AGE: 79 SSN# [id number] GENDER: Male ENCOUNTER PHYSICIAN: Dr. Matthew Martin ADMISSION DIAGNOSIS: - Orthopaedic Disorders 08 - Unilateral Hip Fracture (08.11) Right Femoral Neck Fracture. EATING: Activity did not occur on this shift EATING - SCORE: 0-UNK GROOMING: Comb/brush hair Oral care Wash, rinse, and dry face Wash, rinse, and dry hands GROOMING - STEP 1: Does the patient require the assistance of a person or device, or need extra time when grooming? Yes. GROOMING - STEP 2: Does the patient require the assistance of a helper? Yes. GROOMING - STEP 3: How much assistance does the patient require from the helper? Only prior equipment preparation/set up from the helper GROOMING - SCORE: 5-SUP BATHING: Abdomen Buttocks Chest Left arm Left lower leg and foot Left upper leg Perineal area Right arm Right lower leg and foot Right upper leg BATHING - STEP 1: Does the patient require the assistance of a person or device, or need extra time when bathing? Yes. BATHING - STEP 2: Does the patient require the assistance of a helper? Yes. BATHING - STEP 3: How much assistance does the patient require from the helper? More than just incidental help BATHING - STEP 4: What percent of the body parts did the patient bathe WITHOUT the helper? Half or more of the body par ts BATHING - SCORE: 3-MOD BATHING - COMMENTS: Able to wash 7/10 body parts DRESSING - UPPER BODY: Activity did not occur on this shift ARTICLES SCORE Total number of steps: 0 DRESSING - UPPER BODY - SCORE: 0-UNK DRESSING - LOWER BODY: Activity did not occur on this shift ARTICLES SCORE Total number of steps: 0 DRESSING - LOWER BODY - SCORE: 0-UNK TOILETING: Activity did not occur on this shift TOILETING - SCORE: 0-UNK BLADDER MANAGEMENT: Activity did not occur on this shift BLADDER MANAGEMENT - SCORE: 7-IND BOWEL MANAGEMENT: Activity did not occur on this shift BOWEL MANAGEMENT - SCORE: 7-IND TRANSFERS: BED, CHAIR, WHEELCHAIR: TRANSFERS: BED, CHAIR, WHEELCHAIR - STEP 1: Does the patient require assistance of a person or device, or need extra time with bed, chair, or whe elchair transfers? Yes. TRANSFERS: BED, CHAIR, WHEELCHAIR - STEP 2: Does the patient require the assistance of a helper? Yes. TRANSFERS: BED, CHAIR, WHEELCHAIR - STEP 3: How much assistance does the patient require from the helper? Lifting of the legs TRANSFERS: BED, CHAIR, WHEELCHAIR - STEP 4: How many legs does the patient require the helper to lift? both legs TRANSFERS: BED, CHAIR, WHEELCHAIR - SCORE: 3-MOD TRANSFERS: TOILET: Activity did not occur on this shift TRANSFERS: TOILET - SCORE: 0-UNK TRANSFERS: SHOWER: Activity did not occur on this shift TRANSFERS: SHOWER - SCORE: 0-UNK TRANSFERS: TUB: Activity did not occur on this shift TRANSFERS: TUB - SCORE: 0-UNK LOCOMOTION: WALK: Activity did not occur on this shift LOCOMOTION: WALK - SCORE: 0-UNK LOCOMOTION: WHEELCHAIR: Activity did not occur on this shift LOCOMOTION: WHEELCHAIR - SCORE: 0-UNK LOCOMOTION: STAIRS: Activity did not occur on this shift LOCOMOTION: STAIRS - SCORE: 0-UNK COMPREHENSION: COMPREHENSION: TYPE: Both COMPREHENSION - STEP 1: Does the patient require help from a person or device, or need extra time to understand complex and a bstract ideas (such as current events, finances, discharge planning, medical issues, relationships, e tc)? No. COMPREHENSION - STEP 2: Does the patient need extra time, require an assistive device (such as glasses for visual comprehensi on or a hearing aid for auditory comprehension) or does s/he have mild difficulty understanding compl ex and abstract information? No. COMPREHENSION - SCORE: 7-IND EXPRESSION EXPRESSION: TYPE: Both EXPRESSION - STEP 1: Does the patient require help from a person or device, or need extra time expressing complex and abst ract ideas (such as current events, finances, discharge planning, medical issues, relationships, etc) ? No. EXPRESSION - STEP 2: Does the patient need extra time, require an assistive device (such as augmentive communication syste m or a communication board), OR does s/he have mild difficulty expressing complex and abstract ideas (including mild dysarthria or mild word-find problems)? No. EXPRESSION - SCORE: 7-IND SOCIAL INTERACTION: SOCIAL INTERACTION - STEP 1: Does the patient require a helper to interact with others in social and therapeutic situations? No. SOCIAL INTERACTION - STEP 2: Does the patient need extra time in social situations, OR does s/he interact with staff, other patien ts, and family members ONLY in structured environments, OR does s/he require medication for social in teraction? No. SOCIAL INTERACTION - SCORE: 7-IND PROBLEM SOLVING: PROBLEM SOLVING - SCORE: 0-UNK MEMORY: MEMORY - SCORE: 0-UNK SIGNATURE PANEL: The following modified sections: Bathing - Score, Bathing - Comments:, Eating - Score, Grooming - Sco re, Dressing - Upper Body - Score, Dressing - Lower Body - Score, Toileting - Score, Transfers: Bed, Chair, Wheelchair - Score, Transfers: Toilet - Score, Transfers: Shower - Score, Transfers: Tub - Sco re, Comprehension - Score, Expression - Score, Social Interaction - Score, Problem Solving - Score, M cristina - Score were [electronically] signed by TREVA Dale on Sat Jun 21 2019 15:50:45 [id number] (Central Daylight Time)
[2019-06-21] MEDS: ATORVASTATIN 40 MG TAB PO SCH (21:21)
[2019-06-22] MEDS: LEVOTHYROXINE SOD 0.05 MG TABLET PO SCH (05:10)
[2019-06-22] MEDS: ENSURE HIGH PROTEIN 237 ML CAN PO SCH ×3 (07:30→16:30)
[2019-06-22] MEDS: HYDROCODONE/APAP 5/325 MG TAB PO PRN ×2 (07:43→20:31)
[2019-06-22] MEDS: ZINC SULFATE 220 MG CAP PO SCH (07:45)
[2019-06-22] MEDS: ASPIRIN EC 81 MG TAB PO SCH (07:45)
[2019-06-22] MEDS: APIXABAN 2.5 MG TABLET PO SCH ×2 (07:45→20:31)
[2019-06-22] MEDS: ALLOPURINOL 300 MG TAB PO SCH (07:45)
[2019-06-22] MEDS: ISOSORBIDE MONO SR 30 MG TAB PO SCH (07:45)
[2019-06-22] MEDS: PROMOD 30 ML DOSE PO SCH ×2 (07:46→20:34)
--- NOTE | 2019-06-22 11:05 | FAST ---
SHIFT START DATE/TIME: 06/22/2019 07:00 (CDT) SHIFT END DATE/TIME: 06/22/2019 19:00 (CDT) NAME REGGIE AMBROSE DATE OF : 1940 DATE OF ADMISSION: 06/17/2019 17:06 (CDT) PHONE: AGE: 79 SSN# [id number] GENDER: Male ENCOUNTER PHYSICIAN: Dr. Matthew Martin ADMISSION DIAGNOSIS: - Orthopaedic Disorders 08 - Unilateral Hip Fracture (08.11) Right Femoral Neck Fracture. EATING: EATING - STEP 1: Does the patient require the assistance of a person or device, or need extra time when eating? Yes. EATING - STEP 2: Does the patient require the assistance of a helper? Yes. EATING - STEP 3: Does the patient perform half or more of the eating tasks? Yes. EATING - STEP 4: Does the patient need only supervision, cuing, coaxing OR help to apply an orthosis OR help to cut fo od, open containers, pour liquids, or butter bread? Yes. EATING - SCORE: 5-SUP GROOMING: Comb/brush hair Oral care Wash, rinse, and dry face Wash, rinse, and dry hands GROOMING - STEP 1: Does the patient require the assistance of a person or device, or need extra time when grooming? Yes. GROOMING - STEP 2: Does the patient require the assistance of a helper? No. The patient only requires an assistive devic e, OR takes more than reasonable time to groom, OR there is a concern for safety as the patient groom s GROOMING - SCORE: 6-ELEUTERIO BATHING: Activity did not occur on this shift BATHING - SCORE: 0-UNK DRESSING - UPPER BODY: Activity did not occur on this shift ARTICLES SCORE Total number of steps: 0 DRESSING - UPPER BODY - SCORE: 0-UNK DRESSING - LOWER BODY: Activity did not occur on this shift ARTICLES SCORE Total number of steps: 0 DRESSING - LOWER BODY - SCORE: 0-UNK TOILETING: TOILETING - STEP 1: Does the patient require the assistance of a person or device, or need extra time with toileting? Yes . TOILETING - STEP 2: Does the patient require the assistance of a helper? Yes. TOILETING - STEP 3: How much assistance does the patient require from the helper? Hands-on assistance from the helper TOILETING - STEP 4: Of the 3 tasks: 1) Adjusting clothing prior to use, 2) Cleansing of perineal area, 3) Adjusting clot barb after use; How many tasks does the patient perform WITHOUT assistance of the helper? Two tasks TOILETING - SCORE: 3-MOD BLADDER MANAGEMENT: BLADDER MANAGEMENT - STEP 1: Does the patient control the bladder completely and intentionally without equipment or devices or med ications, and is always continent? Yes. BLADDER MANAGEMENT - SCORE: 7-IND BOWEL MANAGEMENT: Activity did not occur on this shift BOWEL MANAGEMENT - SCORE: 7-IND TRANSFERS: BED, CHAIR, WHEELCHAIR: TRANSFERS: BED, CHAIR, WHEELCHAIR - STEP 1: Does the patient require assistance of a person or device, or need extra time with bed, chair, or whe elchair transfers? Yes. TRANSFERS: BED, CHAIR, WHEELCHAIR - STEP 2: Does the patient require the assistance of a helper? Yes. TRANSFERS: BED, CHAIR, WHEELCHAIR - STEP 3: How much assistance does the patient require from the helper? Lifting of the legs TRANSFERS: BED, CHAIR, WHEELCHAIR - STEP 4: How many legs does the patient require the helper to lift? both legs TRANSFERS: BED, CHAIR, WHEELCHAIR - SCORE: 3-MOD TRANSFERS: TOILET: TRANSFERS: TOILET - STEP 1: Does the patient require the assistance of a person or device, or need extra time with toilet transfe rs? Yes. TRANSFERS: TOILET - STEP 2: Does the patient require the assistance of a helper? Yes. TRANSFERS: TOILET - STEP 3: How much assistance does the patient require from the helper? Patient performs half or more of the tr ansferring tasks TRANSFERS: TOILET - STEP 4: Does the patient need only incidental help such as contact guard or steadying during toilet transfer? No. Patient needs more than incidental help TRANSFERS: TOILET - SCORE: 3-MOD TRANSFERS: SHOWER: Activity did not occur on this shift TRANSFERS: SHOWER - SCORE: 0-UNK TRANSFERS: TUB: Activity did not occur on this shift TRANSFERS: TUB - SCORE: 0-UNK LOCOMOTION: WALK: Activity did not occur on this shift LOCOMOTION: WALK - SCORE: 0-UNK LOCOMOTION: WHEELCHAIR: Activity did not occur on this shift LOCOMOTION: WHEELCHAIR - SCORE: 0-UNK COMPREHENSION: COMPREHENSION: TYPE: Both COMPREHENSION - STEP 1: Does the patient require help from a person or device, or need extra time to understand complex and a bstract ideas (such as current events, finances, discharge planning, medical issues, relationships, e tc)? No. COMPREHENSION - STEP 2: Does the patient need extra time, require an assistive device (such as glasses for visual comprehensi on or a hearing aid for auditory comprehension) or does s/he have mild difficulty understanding compl ex and abstract information? Yes. COMPREHENSION - SCORE: 6-ELEUTERIO EXPRESSION EXPRESSION: TYPE: Both EXPRESSION - STEP 1: Does the patient require help from a person or device, or need extra time expressing complex and abst ract ideas (such as current events, finances, discharge planning, medical issues, relationships, etc) ? No. EXPRESSION - STEP 2: Does the patient need extra time, require an assistive device (such as augmentive communication syste m or a communication board), OR does s/he have mild difficulty expressing complex and abstract ideas (including mild dysarthria or mild word-find problems)? Yes. EXPRESSION - SCORE: 6-ELEUTERIO SOCIAL INTERACTION: SOCIAL INTERACTION - STEP 1: Does the patient require a helper to interact with others in social and therapeutic situations? No. SOCIAL INTERACTION - STEP 2: Does the patient need extra time in social situations, OR does s/he interact with staff, other patien ts, and family members ONLY in structured environments, OR does s/he require medication for social in teraction? Yes, patient needs extra time SOCIAL INTERACTION - SCORE: 6-ELEUTERIO PROBLEM SOLVING: PROBLEM SOLVING - STEP 1: Does the patient need help from a person or device, or need extra time to solve complex problems such as managing a checking account or confronting interpersonal problems? No. PROBLEM SOLVING - STEP 2: Does the patient require extra time to make decisions or solve problems, OR does s/he have slight dif ficulty reading, initiating, or self-correcting in unfamiliar situations? Yes, patient needs extra ti me. PROBLEM SOLVING - SCORE: 6-ELEUTERIO MEMORY: MEMORY - STEP 1: Does the patient need help from a person or device, or need extra time to remember frequently encount ered people, daily routines, and executing requests? No. MEMORY - STEP 2: Does the patient have slight difficulty recognizing frequently encountered people, daily routines, or executing requests without the need for repetition or using self-initiated or environmental cues to remember? Yes. MEMORY - SCORE: 6-ELEUTERIO SIGNATURE PANEL: The following modified sections: Eating - Score, Grooming - Score, Bathing - Score, Dressing - Upper Body - Score, Dressing - Lower Body - Score, Toileting - Score, Bladder Management - Score, Bowel Man agement - Score, Transfers: Bed, Chair, Wheelchair - Score, Transfers: Toilet - Score, Transfers: Crystal wer - Score, Transfers: Tub - Score, Locomotion: Walk - Score, Locomotion: Wheelchair - Score, Compre hension - Score, Expression - Score, Social Interaction - Score, Problem Solving - Score, Memory - Sc ore were [electronically] signed by Rai Pate on SunJun 22 2019 11:04:20 GMT-0500 (Central Daylight Time)
[2019-06-22] MEDS: ATORVASTATIN 40 MG TAB PO SCH (20:31)
--- NOTE | 2019-06-23 02:24 | FAST ---
SHIFT START DATE/TIME: 06/22/2019 19:00 (CDT) SHIFT END DATE/TIME: 06/23/2019 07:00 (CDT) NAME REGGIE AMBROSE DATE OF : 1940 DATE OF ADMISSION: 06/17/2019 17:06 (CDT) PHONE: AGE: 79 N# [id number] GENDER: Male ENCOUNTER PHYSICIAN: Dr. Matthew Martin ADMISSION DIAGNOSIS: - Orthopaedic Disorders 08 - Unilateral Hip Fracture (08.11) Right Femoral Neck Fracture. EATING: Activity did not occur on this shift EATING - SCORE: 0-UNK GROOMING: Activity did not occur on this shift GROOMING - SCORE: 0-UNK BATHING: Activity did not occur on this shift BATHING - SCORE: 0-UNK DRESSING - UPPER BODY: Patient is not dressing in public clothing ARTICLES SCORE Total number of steps: 0 DRESSING - UPPER BODY - SCORE: 0-UNK DRESSING - LOWER BODY: Patient is not dressing in public clothing ARTICLES SCORE Total number of steps: 0 DRESSING - LOWER BODY - SCORE: 0-UNK TOILETING: TOILETING - STEP 1: Does the patient require the assistance of a person or device, or need extra time with toileting? Yes . TOILETING - STEP 2: Does the patient require the assistance of a helper? Yes. TOILETING - STEP 3: How much assistance does the patient require from the helper? Hands-on assistance from the helper TOILETING - STEP 4: Of the 3 tasks: 1) Adjusting clothing prior to use, 2) Cleansing of perineal area, 3) Adjusting clot barb after use; How many tasks does the patient perform WITHOUT assistance of the helper? Three tasks with steadying assistance from the helper TOILETING - SCORE: 4-MIN BLADDER MANAGEMENT: BLADDER MANAGEMENT - STEP 1: Does the patient control the bladder completely and intentionally without equipment or devices or med ications, and is always continent? No. BLADDER MANAGEMENT - STEP 2: Does the patient require the assistance of a helper? Yes. BLADDER MANAGEMENT - STEP 3: How much assistance does the patient require from the helper? Only set-up of equipment - such as plac ing it within reach of the patient or emptying a device - to maintain either satisfactory voiding pat tern or managing an external device, such as an absorbent pad, ileal device, or catheter BLADDER MANAGEMENT - SCORE: 5-SUP BOWEL MANAGEMENT: BOWEL MANAGEMENT - STEP 1: Does the patient control bowels completely and intentionally without equipment devices or medications AND is always continent? No. BOWEL MANAGEMENT - STEP 2: Does the patient require the assistance of a helper? No, patient requires medication for control such as stool softeners, suppositories, laxatives, enemas, or OTC medications BOWEL MANAGEMENT - SCORE: 6-ELEUTERIO TRANSFERS: BED, CHAIR, WHEELCHAIR: TRANSFERS: BED, CHAIR, WHEELCHAIR - STEP 1: Does the patient require assistance of a person or device, or need extra time with bed, chair, or whe elchair transfers? Yes. TRANSFERS: BED, CHAIR, WHEELCHAIR - STEP 2: Does the patient require the assistance of a helper? Yes. TRANSFERS: BED, CHAIR, WHEELCHAIR - STEP 3: How much assistance does the patient require from the helper? Steadying/guiding assistance TRANSFERS: BED, CHAIR, WHEELCHAIR - SCORE: 4-MIN TRANSFERS: TOILET: Activity did not occur on this shift TRANSFERS: TOILET - SCORE: 0-UNK TRANSFERS: SHOWER: Activity did not occur on this shift TRANSFERS: SHOWER - SCORE: 0-UNK TRANSFERS: TUB: Activity did not occur on this shift TRANSFERS: TUB - SCORE: 0-UNK LOCOMOTION: WALK: Activity did not occur on this shift LOCOMOTION: WALK - SCORE: 0-UNK LOCOMOTION: WHEELCHAIR: Activity did not occur on this shift LOCOMOTION: WHEELCHAIR - SCORE: 0-UNK COMPREHENSION: COMPREHENSION: TYPE: Both COMPREHENSION - STEP 1: Does the patient require help from a person or device, or need extra time to understand complex and a bstract ideas (such as current events, finances, discharge planning, medical issues, relationships, e tc)? No. COMPREHENSION - STEP 2: Does the patient need extra time, require an assistive device (such as glasses for visual comprehensi on or a hearing aid for auditory comprehension) or does s/he have mild difficulty understanding compl ex and abstract information? Yes. COMPREHENSION - SCORE: 6-ELEUTERIO EXPRESSION EXPRESSION: TYPE: Both EXPRESSION - STEP 1: Does the patient require help from a person or device, or need extra time expressing complex and abst ract ideas (such as current events, finances, discharge planning, medical issues, relationships, etc) ? No. EXPRESSION - STEP 2: Does the patient need extra time, require an assistive device (such as augmentive communication syste m or a communication board), OR does s/he have mild difficulty expressing complex and abstract ideas (including mild dysarthria or mild word-find problems)? Yes. EXPRESSION - SCORE: 6-ELEUTERIO SOCIAL INTERACTION: SOCIAL INTERACTION - STEP 1: Does the patient require a helper to interact with others in social and therapeutic situations? No. SOCIAL INTERACTION - STEP 2: Does the patient need extra time in social situations, OR does s/he interact with staff, other patien ts, and family members ONLY in structured environments, OR does s/he require medication for social in teraction? Yes, patient needs extra time SOCIAL INTERACTION - SCORE: 6-ELEUTERIO PROBLEM SOLVING: PROBLEM SOLVING - STEP 1: Does the patient need help from a person or device, or need extra time to solve complex problems such as managing a checking account or confronting interpersonal problems? Yes. PROBLEM SOLVING - STEP 2: Does the patient solve basic routine problems half or more of the time? Yes. PROBLEM SOLVING - STEP 3: How often does the patient need help to solve basic routine problems? Less than 10% of the time PROBLEM SOLVING - SCORE: 5-SUP MEMORY: MEMORY - STEP 1: Does the patient need help from a person or device, or need extra time to remember frequently encount ered people, daily routines, and executing requests? No. MEMORY - STEP 2: Does the patient have slight difficulty recognizing frequently encountered people, daily routines, or executing requests without the need for repetition or using self-initiated or environmental cues to remember? Yes. MEMORY - SCORE: 6-ELEUTERIO SIGNATURE PANEL: The following modified sections: Eating - Score, Grooming - Score, Dressing - Upper Body - Score, Sascha ssing - Lower Body - Score, Toileting - Score, Bladder Management - Score, Bowel Management - Score, Transfers: Bed, Chair, Wheelchair - Score, Transfers: Toilet - Score, Transfers: Shower - Score, Oliveira sfers: Tub - Score, Locomotion: Walk - Score, Locomotion: Wheelchair - Score, Comprehension - Score, Expression - Score, Social Interaction - Score, Problem Solving - Score, Memory - Score were [electro nically] signed by Joyce Damon CNA on SunJun 23 2019 02:23:45 GMT-0500 (Central Daylight Time)
[2019-06-23] MEDS: LEVOTHYROXINE SOD 0.05 MG TABLET PO SCH (05:04)
[2019-06-23] MEDS: ENSURE HIGH PROTEIN 237 ML CAN PO SCH ×3 (07:30→16:11)
[2019-06-23] MEDS: APIXABAN 2.5 MG TABLET PO SCH ×2 (07:40→20:17)
[2019-06-23] MEDS: ZINC SULFATE 220 MG CAP PO SCH (07:40)
[2019-06-23] MEDS: ALLOPURINOL 300 MG TAB PO SCH (07:40)
[2019-06-23] MEDS: ASPIRIN EC 81 MG TAB PO SCH (07:40)
[2019-06-23] MEDS: HYDROCODONE/APAP 5/325 MG TAB PO PRN ×2 (07:40→20:17)
[2019-06-23] MEDS: PROMOD 30 ML DOSE PO SCH ×2 (07:42→20:17)
[2019-06-23] MEDS: ISOSORBIDE MONO SR 30 MG TAB PO SCH (11:56)
[2019-06-23] MEDS: TRAMADOL HCL 50 MG TAB PO PRN (12:01)
--- NOTE | 2019-06-23 14:02 | FAST ---
SHIFT START DATE/TIME: 06/23/2019 07:00 (CDT) SHIFT END DATE/TIME: 06/23/2019 19:00 (CDT) NAME REGGIE AMBROSE DATE OF : 1940 DATE OF ADMISSION: 06/17/2019 17:06 (CDT) PHONE: AGE: 79 SSN# [id number] GENDER: Male ENCOUNTER PHYSICIAN: Dr. Matthew Martin ADMISSION DIAGNOSIS: - Orthopaedic Disorders 08 - Unilateral Hip Fracture (08.11) Right Femoral Neck Fracture. EATING: EATING - STEP 1: Does the patient require the assistance of a person or device, or need extra time when eating? Yes. EATING - STEP 2: Does the patient require the assistance of a helper? No, patient only requires an assistive device, O R s/he takes more than reasonable time to eat, OR there is a safety concern, OR s/he requires modifie d food consistency EATING - SCORE: 6-ELEUTERIO GROOMING: Activity did not occur on this shift GROOMING - SCORE: 0-UNK BATHING: Activity did not occur on this shift BATHING - SCORE: 0-UNK DRESSING - UPPER BODY: Activity did not occur on this shift ARTICLES SCORE Total number of steps: 0 DRESSING - UPPER BODY - SCORE: 0-UNK DRESSING - LOWER BODY: Activity did not occur on this shift ARTICLES SCORE Total number of steps: 0 DRESSING - LOWER BODY - SCORE: 0-UNK TOILETING: TOILETING - STEP 1: Does the patient require the assistance of a person or device, or need extra time with toileting? Yes . TOILETING - STEP 2: Does the patient require the assistance of a helper? Yes. TOILETING - STEP 3: How much assistance does the patient require from the helper? Hands-on assistance from the helper TOILETING - STEP 4: Of the 3 tasks: 1) Adjusting clothing prior to use, 2) Cleansing of perineal area, 3) Adjusting clot barb after use; How many tasks does the patient perform WITHOUT assistance of the helper? Three tasks with steadying assistance from the helper TOILETING - SCORE: 4-MIN BLADDER MANAGEMENT: BLADDER MANAGEMENT - STEP 1: Does the patient control the bladder completely and intentionally without equipment or devices or med ications, and is always continent? No. BLADDER MANAGEMENT - STEP 2: Does the patient require the assistance of a helper? No, patient requires and independently uses an a ssistive device, such as a urinal, bedpan, bedside commode, catheter, absorbent pad, or collecting de vice BLADDER MANAGEMENT - SCORE: 6-ELEUTERIO BLADDER MANAGEMENT - FREQUENCY OF ACCIDENTS: BLADDER MANAGEMENT(FA) - STEP 1: How many accidents has the patient had during the current shift? 0 BOWEL MANAGEMENT: Activity did not occur on this shift BOWEL MANAGEMENT - SCORE: 7-IND BOWEL MANAGEMENT - FREQUENCY OF ACCIDENTS: BOWEL MANAGEMENT(FA) - STEP 1: How many accidents has the patient had during the current shift? 0 TRANSFERS: BED, CHAIR, WHEELCHAIR: TRANSFERS: BED, CHAIR, WHEELCHAIR - STEP 1: Does the patient require assistance of a person or device, or need extra time with bed, chair, or whe elchair transfers? Yes. TRANSFERS: BED, CHAIR, WHEELCHAIR - STEP 2: Does the patient require the assistance of a helper? Yes. TRANSFERS: BED, CHAIR, WHEELCHAIR - STEP 3: How much assistance does the patient require from the helper? Lifting of the legs TRANSFERS: BED, CHAIR, WHEELCHAIR - STEP 4: How many legs does the patient require the helper to lift? both legs TRANSFERS: BED, CHAIR, WHEELCHAIR - SCORE: 3-MOD TRANSFERS: TOILET: TRANSFERS: TOILET - STEP 1: Does the patient require the assistance of a person or device, or need extra time with toilet transfe rs? Yes. TRANSFERS: TOILET - STEP 2: Does the patient require the assistance of a helper? Yes. TRANSFERS: TOILET - STEP 3: How much assistance does the patient require from the helper? Patient performs half or more of the tr ansferring tasks TRANSFERS: TOILET - STEP 4: Does the patient need only incidental help such as contact guard or steadying during toilet transfer? No. Patient needs more than incidental help TRANSFERS: TOILET - SCORE: 3-MOD TRANSFERS: SHOWER: After patient transfers from bed to shower chair on wheels, the helper pushes the chair into the walk -in shower TRANSFERS: SHOWER - SCORE: 1-DEP TRANSFERS: TUB: Activity did not occur on this shift TRANSFERS: TUB - SCORE: 0-UNK LOCOMOTION: WALK: Activity did not occur on this shift LOCOMOTION: WALK - SCORE: 0-UNK LOCOMOTION: WHEELCHAIR: Activity did not occur on this shift LOCOMOTION: WHEELCHAIR - SCORE: 0-UNK COMPREHENSION: COMPREHENSION: TYPE: Both COMPREHENSION - STEP 1: Does the patient require help from a person or device, or need extra time to understand complex and a bstract ideas (such as current events, finances, discharge planning, medical issues, relationships, e tc)? No. COMPREHENSION - STEP 2: Does the patient need extra time, require an assistive device (such as glasses for visual comprehensi on or a hearing aid for auditory comprehension) or does s/he have mild difficulty understanding compl ex and abstract information? Yes. COMPREHENSION - SCORE: 6-ELEUTERIO EXPRESSION EXPRESSION: TYPE: Both EXPRESSION - STEP 1: Does the patient require help from a person or device, or need extra time expressing complex and abst ract ideas (such as current events, finances, discharge planning, medical issues, relationships, etc) ? No. EXPRESSION - STEP 2: Does the patient need extra time, require an assistive device (such as augmentive communication syste m or a communication board), OR does s/he have mild difficulty expressing complex and abstract ideas (including mild dysarthria or mild word-find problems)? Yes. EXPRESSION - SCORE: 6-ELEUTERIO SOCIAL INTERACTION: SOCIAL INTERACTION - STEP 1: Does the patient require a helper to interact with others in social and therapeutic situations? No. SOCIAL INTERACTION - STEP 2: Does the patient need extra time in social situations, OR does s/he interact with staff, other patien ts, and family members ONLY in structured environments, OR does s/he require medication for social in teraction? Yes, patient needs extra time SOCIAL INTERACTION - SCORE: 6-ELEUTERIO PROBLEM SOLVING: PROBLEM SOLVING - STEP 1: Does the patient need help from a person or device, or need extra time to solve complex problems such as managing a checking account or confronting interpersonal problems? No. PROBLEM SOLVING - STEP 2: Does the patient require extra time to make decisions or solve problems, OR does s/he have slight dif ficulty reading, initiating, or self-correcting in unfamiliar situations? Yes, patient needs extra ti me. PROBLEM SOLVING - SCORE: 6-ELEUTERIO MEMORY: MEMORY - STEP 1: Does the patient need help from a person or device, or need extra time to remember frequently encount ered people, daily routines, and executing requests? No. MEMORY - STEP 2: Does the patient have slight difficulty recognizing frequently encountered people, daily routines, or executing requests without the need for repetition or using self-initiated or environmental cues to remember? Yes. MEMORY - SCORE: 6-ELEUTERIO SIGNATURE PANEL: The following modified sections: Eating - Score, Grooming - Score, Bathing - Score, Dressing - Upper Body - Score, Dressing - Lower Body - Score, Toileting - Score, Bladder Management - Score, Bowel Man agement - Score, Transfers: Bed, Chair, Wheelchair - Score, Transfers: Toilet - Score, Transfers: Crystal wer - Score, Transfers: Tub - Score, Locomotion: Walk - Score, Locomotion: Wheelchair - Score, Compre hension - Score, Expression - Score, Social Interaction - Score, Problem Solving - Score, Memory - Sc ore were [electronically] signed by Carrol DaoNCristóbal on SunJun 23 2019 14:01:09 GMT-0500 (Centra l Daylight Time)
--- NOTE | 2019-06-23 15:34 | FAST ---
ENCOUNTER DATE AND TIME: 06/23/2019 08:00 (CDT) NAME REGGIE AMBROSE DATE OF : 1940 DATE OF ADMISSION: 06/17/2019 17:06 (CDT) PHONE: AGE: 79 SSN# [id number] GENDER: Male ENCOUNTER PHYSICIAN: Dr. Matthew Martin ADMISSION DIAGNOSIS: - Orthopaedic Disorders 08 - Unilateral Hip Fracture (08.11) Right Femoral Neck Fracture. EATING: Activity did not occur on this shift EATING - SCORE: 0-UNK GROOMING: Activity did not occur on this shift GROOMING - SCORE: 0-UNK BATHING: Activity did not occur on this shift BATHING - SCORE: 0-UNK DRESSING - UPPER BODY: Activity did not occur on this shift Patient is not dressing in public clothing ARTICLES SCORE Total number of steps: 0 DRESSING - UPPER BODY - SCORE: 0-UNK DRESSING - LOWER BODY: Activity did not occur on this shift Patient is not dressing in public clothing ARTICLES SCORE Total number of steps: 0 DRESSING - LOWER BODY - SCORE: 0-UNK TOILETING: Activity did not occur on this shift TOILETING - SCORE: 0-UNK BLADDER MANAGEMENT: Activity did not occur on this shift BLADDER MANAGEMENT - SCORE: 7-IND BOWEL MANAGEMENT: Activity did not occur on this shift BOWEL MANAGEMENT - SCORE: 7-IND TRANSFERS: BED, CHAIR, WHEELCHAIR: TRANSFERS: BED, CHAIR, WHEELCHAIR - STEP 1: Does the patient require assistance of a person or device, or need extra time with bed, chair, or whe elchair transfers? Yes. TRANSFERS: BED, CHAIR, WHEELCHAIR - STEP 2: Does the patient require the assistance of a helper? Yes. TRANSFERS: BED, CHAIR, WHEELCHAIR - STEP 3: How much assistance does the patient require from the helper? Steadying/guiding assistance TRANSFERS: BED, CHAIR, WHEELCHAIR - SCORE: 4-MIN TRANSFERS: TOILET: Activity did not occur on this shift TRANSFERS: TOILET - SCORE: 0-UNK TRANSFERS: SHOWER: Activity did not occur on this shift TRANSFERS: SHOWER - SCORE: 0-UNK TRANSFERS: TUB: Activity did not occur on this shift TRANSFERS: TUB - SCORE: 0-UNK LOCOMOTION: WALK: LOCOMOTION: WALK - STEP 1: Does the patient need help from a person or device, or need extra time to walk 150 feet? Yes. LOCOMOTION: WALK - STEP 2: How much assistance does the patient require to walk a minimum of 150 feet? Only supervision, cuing, or coaxing LOCOMOTION: WALK - SCORE: 5-SUP LOCOMOTION: WHEELCHAIR: Activity did not occur on this shift LOCOMOTION: WHEELCHAIR - SCORE: 0-UNK LOCOMOTION: STAIRS: Activity did not occur on this shift LOCOMOTION: STAIRS - SCORE: 0-UNK COMPREHENSION: COMPREHENSION - SCORE: 0-UNK EXPRESSION EXPRESSION - SCORE: 0-UNK SOCIAL INTERACTION: SOCIAL INTERACTION - SCORE: 0-UNK PROBLEM SOLVING: PROBLEM SOLVING - SCORE: 0-UNK MEMORY: MEMORY - SCORE: 0-UNK SIGNATURE PANEL: The following modified sections: Transfers: Bed, Chair, Wheelchair - Score, Transfers: Toilet - Score , Locomotion: Walk - Score, Locomotion: Wheelchair - Score, Locomotion: Stairs - Score were [electron luci] signed by Ayan Flowers PT on SunJun 23 2019 15:33:07 T-0500 (Central Daylight Time)
[2019-06-23] MEDS: ATORVASTATIN 40 MG TAB PO SCH (20:17)
--- NOTE | 2019-06-24 05:07 | FAST ---
SHIFT START DATE/TIME: 06/23/2019 19:00 (CDT) SHIFT END DATE/TIME: 06/24/2019 07:00 (CDT) NAME REGGIE AMBROSE DATE OF : 1940 DATE OF ADMISSION: 06/17/2019 17:06 (CDT) PHONE: AGE: 79 SSN# [id number] GENDER: Male ENCOUNTER PHYSICIAN: Dr. Matthew Martin ADMISSION DIAGNOSIS: - Orthopaedic Disorders 08 - Unilateral Hip Fracture (08.11) Right Femoral Neck Fracture. EATING: Activity did not occur on this shift EATING - SCORE: 0-UNK GROOMING: Activity did not occur on this shift GROOMING - SCORE: 0-UNK BATHING: Activity did not occur on this shift BATHING - SCORE: 0-UNK DRESSING - UPPER BODY: Activity did not occur on this shift ARTICLES SCORE Total number of steps: 0 DRESSING - UPPER BODY - SCORE: 0-UNK DRESSING - LOWER BODY: Activity did not occur on this shift ARTICLES SCORE Total number of steps: 0 DRESSING - LOWER BODY - SCORE: 0-UNK TOILETING: TOILETING - SCORE: 0-UNK BLADDER MANAGEMENT: BLADDER MANAGEMENT - STEP 1: Does the patient control the bladder completely and intentionally without equipment or devices or med ications, and is always continent? No. BLADDER MANAGEMENT - STEP 2: Does the patient require the assistance of a helper? Yes. BLADDER MANAGEMENT - STEP 3: How much assistance does the patient require from the helper? Only set-up of equipment - such as plac ing it within reach of the patient or emptying a device - to maintain either satisfactory voiding pat tern or managing an external device, such as an absorbent pad, ileal device, or catheter BLADDER MANAGEMENT - SCORE: 5-SUP BLADDER MANAGEMENT - FREQUENCY OF ACCIDENTS: BLADDER MANAGEMENT(FA) - STEP 1: How many accidents has the patient had during the current shift? 0 BOWEL MANAGEMENT: Colostomy care provided by [facility] (patient performs less than 25% of colostomy care). BOWEL MANAGEMENT - SCORE: 1-DEP BOWEL MANAGEMENT - FREQUENCY OF ACCIDENTS: BOWEL MANAGEMENT(FA) - STEP 1: How many accidents has the patient had during the current shift? 0 BOWEL MANAGEMENT(FA) - COMMENTS: Has ileostomy TRANSFERS: BED, CHAIR, WHEELCHAIR: Activity did not occur on this shift TRANSFERS: BED, CHAIR, WHEELCHAIR - SCORE: 0-UNK TRANSFERS: TOILET: Activity did not occur on this shift TRANSFERS: TOILET - SCORE: 0-UNK TRANSFERS: SHOWER: Activity did not occur on this shift TRANSFERS: SHOWER - SCORE: 0-UNK TRANSFERS: TUB: Activity did not occur on this shift TRANSFERS: TUB - SCORE: 0-UNK LOCOMOTION: WALK: Activity did not occur on this shift LOCOMOTION: WALK - SCORE: 0-UNK LOCOMOTION: WHEELCHAIR: Activity did not occur on this shift LOCOMOTION: WHEELCHAIR - SCORE: 0-UNK COMPREHENSION: COMPREHENSION: TYPE: Both COMPREHENSION - STEP 1: Does the patient require help from a person or device, or need extra time to understand complex and a bstract ideas (such as current events, finances, discharge planning, medical issues, relationships, e tc)? No. COMPREHENSION - STEP 2: Does the patient need extra time, require an assistive device (such as glasses for visual comprehensi on or a hearing aid for auditory comprehension) or does s/he have mild difficulty understanding compl ex and abstract information? Yes. COMPREHENSION - SCORE: 6-ELEUTERIO EXPRESSION EXPRESSION: TYPE: Both EXPRESSION - STEP 1: Does the patient require help from a person or device, or need extra time expressing complex and abst ract ideas (such as current events, finances, discharge planning, medical issues, relationships, etc) ? No. EXPRESSION - STEP 2: Does the patient need extra time, require an assistive device (such as augmentive communication syste m or a communication board), OR does s/he have mild difficulty expressing complex and abstract ideas (including mild dysarthria or mild word-find problems)? Yes. EXPRESSION - SCORE: 6-ELEUTERIO SOCIAL INTERACTION: SOCIAL INTERACTION - STEP 1: Does the patient require a helper to interact with others in social and therapeutic situations? No. SOCIAL INTERACTION - STEP 2: Does the patient need extra time in social situations, OR does s/he interact with staff, other patien ts, and family members ONLY in structured environments, OR does s/he require medication for social in teraction? Yes, patient needs extra time SOCIAL INTERACTION - SCORE: 6-ELEUTERIO PROBLEM SOLVING: PROBLEM SOLVING - STEP 1: Does the patient need help from a person or device, or need extra time to solve complex problems such as managing a checking account or confronting interpersonal problems? No. PROBLEM SOLVING - STEP 2: Does the patient require extra time to make decisions or solve problems, OR does s/he have slight dif ficulty reading, initiating, or self-correcting in unfamiliar situations? Yes, patient needs extra ti me. PROBLEM SOLVING - SCORE: 6-ELEUTERIO MEMORY: MEMORY - STEP 1: Does the patient need help from a person or device, or need extra time to remember frequently encount ered people, daily routines, and executing requests? No. MEMORY - STEP 2: Does the patient have slight difficulty recognizing frequently encountered people, daily routines, or executing requests without the need for repetition or using self-initiated or environmental cues to remember? Yes. MEMORY - SCORE: 6-ELEUTERIO SIGNATURE PANEL: The following modified sections: Eating - Score, Grooming - Score, Bathing - Score, Dressing - Upper Body - Score, Dressing - Lower Body - Score, Bladder Management - Score, Bowel Management - Score, Zackery wel Management(FA) - Comments:, Transfers: Bed, Chair, Wheelchair - Score, Transfers: Toilet - Score, Transfers: Shower - Score, Transfers: Tub - Score, Locomotion: Walk - Score, Locomotion: Wheelchair - Score, Comprehension - Score, Expression - Score, Social Interaction - Score, Problem Solving - Sco re, Memory - Score were [electronically] signed by Kat Zambrano RN on SunJun 24 2019 05:06:34 G MT-0500 (Central Daylight Time)
[2019-06-24 06:02] LABS: Potassium 4.8 mmol/L (3.5-5.1)
[2019-06-24] MEDS: ENSURE HIGH PROTEIN 237 ML CAN PO SCH ×3 (07:30→16:30)
[2019-06-24] MEDS: PROMOD 30 ML DOSE PO SCH ×2 (08:00→20:00)
[2019-06-24] MEDS: ZINC SULFATE 220 MG CAP PO SCH (08:47)
[2019-06-24] MEDS: ASPIRIN EC 81 MG TAB PO SCH (08:47)
[2019-06-24] MEDS: LEVOTHYROXINE SOD 0.05 MG TABLET PO SCH (08:48)
[2019-06-24] MEDS: ALLOPURINOL 300 MG TAB PO SCH (08:48)
[2019-06-24] MEDS: APIXABAN 2.5 MG TABLET PO SCH ×2 (08:48→20:53)
[2019-06-24] MEDS: HYDROCODONE/APAP 5/325 MG TAB PO PRN ×3 (08:50→20:53)
[2019-06-24] MEDS: ISOSORBIDE MONO SR 30 MG TAB PO SCH (12:35)
--- NOTE | 2019-06-24 16:26 | FAST ---
ENCOUNTER DATE AND TIME: 06/24/2019 08:00 (CDT) NAME REGGIE AMBROSE DATE OF : 1940 DATE OF ADMISSION: 06/17/2019 17:06 (CDT) PHONE: AGE: 79 SSN# [id number] GENDER: Male ENCOUNTER PHYSICIAN: Dr. Matthew Martin ADMISSION DIAGNOSIS: - Orthopaedic Disorders 08 - Unilateral Hip Fracture (08.11) Right Femoral Neck Fracture. EATING: Activity did not occur on this shift EATING - SCORE: 0-UNK GROOMING: Activity did not occur on this shift GROOMING - SCORE: 0-UNK BATHING: Activity did not occur on this shift BATHING - SCORE: 0-UNK DRESSING - UPPER BODY: Activity did not occur on this shift Patient is not dressing in public clothing ARTICLES SCORE Total number of steps: 0 DRESSING - UPPER BODY - SCORE: 0-UNK DRESSING - LOWER BODY: Activity did not occur on this shift Patient is not dressing in public clothing ARTICLES SCORE Total number of steps: 0 DRESSING - LOWER BODY - SCORE: 0-UNK TOILETING: Activity did not occur on this shift TOILETING - SCORE: 0-UNK BLADDER MANAGEMENT: Activity did not occur on this shift BLADDER MANAGEMENT - SCORE: 7-IND BOWEL MANAGEMENT: Activity did not occur on this shift BOWEL MANAGEMENT - SCORE: 7-IND TRANSFERS: BED, CHAIR, WHEELCHAIR: TRANSFERS: BED, CHAIR, WHEELCHAIR - STEP 1: Does the patient require assistance of a person or device, or need extra time with bed, chair, or whe elchair transfers? Yes. TRANSFERS: BED, CHAIR, WHEELCHAIR - STEP 2: Does the patient require the assistance of a helper? Yes. TRANSFERS: BED, CHAIR, WHEELCHAIR - STEP 3: How much assistance does the patient require from the helper? Only supervision TRANSFERS: BED, CHAIR, WHEELCHAIR - SCORE: 5-SUP TRANSFERS: TOILET: Activity did not occur on this shift TRANSFERS: TOILET - SCORE: 0-UNK TRANSFERS: SHOWER: Activity did not occur on this shift TRANSFERS: SHOWER - SCORE: 0-UNK TRANSFERS: TUB: Activity did not occur on this shift TRANSFERS: TUB - SCORE: 0-UNK LOCOMOTION: WALK: LOCOMOTION: WALK - STEP 1: Does the patient need help from a person or device, or need extra time to walk 150 feet? Yes. LOCOMOTION: WALK - STEP 2: How much assistance does the patient require to walk a minimum of 150 feet? Only supervision, cuing, or coaxing LOCOMOTION: WALK - SCORE: 5-SUP LOCOMOTION: WHEELCHAIR: LOCOMOTION: WHEELCHAIR - STEP 1: Does the patient need help to go 150 feet in a wheelchair? No. LOCOMOTION: WHEELCHAIR - SCORE: 6-ELEUTERIO LOCOMOTION: STAIRS: Activity did not occur on this shift LOCOMOTION: STAIRS - SCORE: 0-UNK COMPREHENSION: COMPREHENSION - SCORE: 0-UNK EXPRESSION EXPRESSION - SCORE: 0-UNK SOCIAL INTERACTION: SOCIAL INTERACTION - SCORE: 0-UNK PROBLEM SOLVING: PROBLEM SOLVING - SCORE: 0-UNK MEMORY: MEMORY - SCORE: 0-UNK SIGNATURE PANEL: The following modified sections: Transfers: Bed, Chair, Wheelchair - Score, Transfers: Toilet - Score , Locomotion: Walk - Score, Locomotion: Wheelchair - Score, Locomotion: Stairs - Score were [electron luic] signed by Ayan Flowers PT on SunJun 24 2019 16:26:22 [facility]-0500 (Central Daylight Time)
[2019-06-24] MEDS: ATORVASTATIN 40 MG TAB PO SCH (20:53)
--- NOTE | 2019-06-25 02:58 | FAST ---
SHIFT START DATE/TIME: 06/24/2019 19:00 (CDT) SHIFT END DATE/TIME: 06/25/2019 07:00 (CDT) NAME REGGIE AMBROSE DATE OF : 1940 DATE OF ADMISSION: 06/17/2019 17:06 (CDT) PHONE: AGE: 79 SSN# [id number] GENDER: Male ENCOUNTER PHYSICIAN: Dr. Matthew Martin ADMISSION DIAGNOSIS: - Orthopaedic Disorders 08 - Unilateral Hip Fracture (08.11) Right Femoral Neck Fracture. EATING: Activity did not occur on this shift EATING - SCORE: 0-UNK GROOMING: Activity did not occur on this shift GROOMING - SCORE: 0-UNK BATHING: Activity did not occur on this shift BATHING - SCORE: 0-UNK DRESSING - UPPER BODY: Patient is not dressing in public clothing ARTICLES SCORE Total number of steps: 0 DRESSING - UPPER BODY - SCORE: 0-UNK DRESSING - LOWER BODY: Patient is not dressing in public clothing ARTICLES SCORE Total number of steps: 0 DRESSING - LOWER BODY - SCORE: 0-UNK TOILETING: Activity did not occur on this shift TOILETING - SCORE: 0-UNK BLADDER MANAGEMENT: BLADDER MANAGEMENT - STEP 1: Does the patient control the bladder completely and intentionally without equipment or devices or med ications, and is always continent? No. BLADDER MANAGEMENT - STEP 2: Does the patient require the assistance of a helper? Yes. BLADDER MANAGEMENT - STEP 3: How much assistance does the patient require from the helper? Only set-up of equipment - such as plac ing it within reach of the patient or emptying a device - to maintain either satisfactory voiding pat tern or managing an external device, such as an absorbent pad, ileal device, or catheter BLADDER MANAGEMENT - SCORE: 5-SUP BOWEL MANAGEMENT: Colostomy care provided by [facility] (patient performs less than 25% of colostomy care). BOWEL MANAGEMENT - SCORE: 1-DEP TRANSFERS: BED, CHAIR, WHEELCHAIR: Activity did not occur on this shift TRANSFERS: BED, CHAIR, WHEELCHAIR - SCORE: 0-UNK TRANSFERS: TOILET: Activity did not occur on this shift TRANSFERS: TOILET - SCORE: 0-UNK TRANSFERS: SHOWER: Activity did not occur on this shift TRANSFERS: SHOWER - SCORE: 0-UNK TRANSFERS: TUB: Activity did not occur on this shift TRANSFERS: TUB - SCORE: 0-UNK LOCOMOTION: WALK: Activity did not occur on this shift LOCOMOTION: WALK - SCORE: 0-UNK LOCOMOTION: WHEELCHAIR: Activity did not occur on this shift LOCOMOTION: WHEELCHAIR - SCORE: 0-UNK COMPREHENSION: COMPREHENSION: TYPE: Both COMPREHENSION - STEP 1: Does the patient require help from a person or device, or need extra time to understand complex and a bstract ideas (such as current events, finances, discharge planning, medical issues, relationships, e tc)? No. COMPREHENSION - STEP 2: Does the patient need extra time, require an assistive device (such as glasses for visual comprehensi on or a hearing aid for auditory comprehension) or does s/he have mild difficulty understanding compl ex and abstract information? Yes. COMPREHENSION - SCORE: 6-ELEUTERIO EXPRESSION EXPRESSION: TYPE: Both EXPRESSION - STEP 1: Does the patient require help from a person or device, or need extra time expressing complex and abst ract ideas (such as current events, finances, discharge planning, medical issues, relationships, etc) ? No. EXPRESSION - STEP 2: Does the patient need extra time, require an assistive device (such as augmentive communication syste m or a communication board), OR does s/he have mild difficulty expressing complex and abstract ideas (including mild dysarthria or mild word-find problems)? Yes. EXPRESSION - SCORE: 6-ELEUTERIO SOCIAL INTERACTION: SOCIAL INTERACTION - STEP 1: Does the patient require a helper to interact with others in social and therapeutic situations? No. SOCIAL INTERACTION - STEP 2: Does the patient need extra time in social situations, OR does s/he interact with staff, other patien ts, and family members ONLY in structured environments, OR does s/he require medication for social in teraction? Yes, patient needs extra time SOCIAL INTERACTION - SCORE: 6-ELEUTERIO PROBLEM SOLVING: PROBLEM SOLVING - STEP 1: Does the patient need help from a person or device, or need extra time to solve complex problems such as managing a checking account or confronting interpersonal problems? No. PROBLEM SOLVING - STEP 2: Does the patient require extra time to make decisions or solve problems, OR does s/he have slight dif ficulty reading, initiating, or self-correcting in unfamiliar situations? Yes, patient needs extra ti me. PROBLEM SOLVING - SCORE: 6-ELEUTERIO MEMORY: MEMORY - STEP 1: Does the patient need help from a person or device, or need extra time to remember frequently encount ered people, daily routines, and executing requests? No. MEMORY - STEP 2: Does the patient have slight difficulty recognizing frequently encountered people, daily routines, or executing requests without the need for repetition or using self-initiated or environmental cues to remember? Yes. MEMORY - SCORE: 6-ELEUTERIO
[2019-06-25] MEDS: LEVOTHYROXINE SOD 0.05 MG TABLET PO SCH (07:07)
[2019-06-25] MEDS: ENSURE HIGH PROTEIN 237 ML CAN PO SCH ×3 (07:30→16:30)
[2019-06-25] MEDS: PROMOD 30 ML DOSE PO SCH ×2 (08:00→20:00)
[2019-06-25] MEDS: ALLOPURINOL 300 MG TAB PO SCH (09:07)
[2019-06-25] MEDS: ISOSORBIDE MONO SR 30 MG TAB PO SCH (09:07)
[2019-06-25] MEDS: ASPIRIN EC 81 MG TAB PO SCH (09:07)
[2019-06-25] MEDS: APIXABAN 2.5 MG TABLET PO SCH ×2 (09:07→20:41)
[2019-06-25] MEDS: HYDROCODONE/APAP 5/325 MG TAB PO PRN ×2 (09:07→16:34)
[2019-06-25] MEDS: ZINC SULFATE 220 MG CAP PO SCH (09:07)
--- NOTE | 2019-06-25 14:33 | FAST ---
SHIFT START DATE/TIME: 06/25/2019 07:00 (CDT) SHIFT END DATE/TIME: 06/25/2019 19:00 (CDT) NAME REGGIE AMBROSE DATE OF : 1940 DATE OF ADMISSION: 06/17/2019 17:06 (CDT) PHONE: AGE: 79 SSN# [id number] GENDER: Male ENCOUNTER PHYSICIAN: Dr. Matthew Martin ADMISSION DIAGNOSIS: - Orthopaedic Disorders 08 - Unilateral Hip Fracture (08.11) Right Femoral Neck Fracture. EATING: EATING - STEP 1: Does the patient require the assistance of a person or device, or need extra time when eating? Yes. EATING - STEP 2: Does the patient require the assistance of a helper? Yes. EATING - STEP 3: Does the patient perform half or more of the eating tasks? Yes. EATING - STEP 4: Does the patient need only supervision, cuing, coaxing OR help to apply an orthosis OR help to cut fo od, open containers, pour liquids, or butter bread? Yes. EATING - SCORE: 5-SUP GROOMING: Activity did not occur on this shift GROOMING - SCORE: 0-UNK BATHING: Activity did not occur on this shift BATHING - SCORE: 0-UNK DRESSING - UPPER BODY: Activity did not occur on this shift ARTICLES SCORE Total number of steps: 0 DRESSING - UPPER BODY - SCORE: 0-UNK DRESSING - LOWER BODY: Activity did not occur on this shift ARTICLES SCORE Total number of steps: 0 DRESSING - LOWER BODY - SCORE: 0-UNK TOILETING: TOILETING - STEP 1: Does the patient require the assistance of a person or device, or need extra time with toileting? Yes . TOILETING - STEP 2: Does the patient require the assistance of a helper? Yes. TOILETING - STEP 3: How much assistance does the patient require from the helper? Hands-on assistance from the helper TOILETING - STEP 4: Of the 3 tasks: 1) Adjusting clothing prior to use, 2) Cleansing of perineal area, 3) Adjusting clot barb after use; How many tasks does the patient perform WITHOUT assistance of the helper? Three tasks with steadying assistance from the helper TOILETING - SCORE: 4-MIN BLADDER MANAGEMENT: BLADDER MANAGEMENT - STEP 1: Does the patient control the bladder completely and intentionally without equipment or devices or med ications, and is always continent? No. BLADDER MANAGEMENT - STEP 2: Does the patient require the assistance of a helper? No, patient requires and independently uses an a ssistive device, such as a urinal, bedpan, bedside commode, catheter, absorbent pad, or collecting de vice BLADDER MANAGEMENT - SCORE: 6-ELEUTERIO BOWEL MANAGEMENT: Colostomy care provided by [facility] (patient performs less than 25% of colostomy care). BOWEL MANAGEMENT - SCORE: 1-DEP TRANSFERS: BED, CHAIR, WHEELCHAIR: TRANSFERS: BED, CHAIR, WHEELCHAIR - STEP 1: Does the patient require assistance of a person or device, or need extra time with bed, chair, or whe elchair transfers? Yes. TRANSFERS: BED, CHAIR, WHEELCHAIR - STEP 2: Does the patient require the assistance of a helper? Yes. TRANSFERS: BED, CHAIR, WHEELCHAIR - STEP 3: How much assistance does the patient require from the helper? Lifting of the legs TRANSFERS: BED, CHAIR, WHEELCHAIR - STEP 4: How many legs does the patient require the helper to lift? both legs TRANSFERS: BED, CHAIR, WHEELCHAIR - SCORE: 3-MOD TRANSFERS: TOILET: TRANSFERS: TOILET - STEP 1: Does the patient require the assistance of a person or device, or need extra time with toilet transfe rs? Yes. TRANSFERS: TOILET - STEP 2: Does the patient require the assistance of a helper? Yes. TRANSFERS: TOILET - STEP 3: How much assistance does the patient require from the helper? Patient performs half or more of the tr ansferring tasks TRANSFERS: TOILET - STEP 4: Does the patient need only incidental help such as contact guard or steadying during toilet transfer? No. Patient needs more than incidental help TRANSFERS: TOILET - SCORE: 3-MOD TRANSFERS: SHOWER: Activity did not occur on this shift TRANSFERS: SHOWER - SCORE: 0-UNK TRANSFERS: TUB: Activity did not occur on this shift TRANSFERS: TUB - SCORE: 0-UNK LOCOMOTION: WALK: Activity did not occur on this shift LOCOMOTION: WALK - SCORE: 0-UNK LOCOMOTION: WHEELCHAIR: Activity did not occur on this shift LOCOMOTION: WHEELCHAIR - SCORE: 0-UNK COMPREHENSION: COMPREHENSION: TYPE: Both COMPREHENSION - STEP 1: Does the patient require help from a person or device, or need extra time to understand complex and a bstract ideas (such as current events, finances, discharge planning, medical issues, relationships, e tc)? No. COMPREHENSION - STEP 2: Does the patient need extra time, require an assistive device (such as glasses for visual comprehensi on or a hearing aid for auditory comprehension) or does s/he have mild difficulty understanding compl ex and abstract information? Yes. COMPREHENSION - SCORE: 6-ELEUTERIO EXPRESSION EXPRESSION: TYPE: Both EXPRESSION - STEP 1: Does the patient require help from a person or device, or need extra time expressing complex and abst ract ideas (such as current events, finances, discharge planning, medical issues, relationships, etc) ? No. EXPRESSION - STEP 2: Does the patient need extra time, require an assistive device (such as augmentive communication syste m or a communication board), OR does s/he have mild difficulty expressing complex and abstract ideas (including mild dysarthria or mild word-find problems)? Yes. EXPRESSION - SCORE: 6-ELEUTERIO SOCIAL INTERACTION: SOCIAL INTERACTION - STEP 1: Does the patient require a helper to interact with others in social and therapeutic situations? No. SOCIAL INTERACTION - STEP 2: Does the patient need extra time in social situations, OR does s/he interact with staff, other patien ts, and family members ONLY in structured environments, OR does s/he require medication for social in teraction? Yes, patient needs extra time SOCIAL INTERACTION - SCORE: 6-ELEUTERIO PROBLEM SOLVING: PROBLEM SOLVING - STEP 1: Does the patient need help from a person or device, or need extra time to solve complex problems such as managing a checking account or confronting interpersonal problems? No. PROBLEM SOLVING - STEP 2: Does the patient require extra time to make decisions or solve problems, OR does s/he have slight dif ficulty reading, initiating, or self-correcting in unfamiliar situations? Yes, patient needs extra ti me. PROBLEM SOLVING - SCORE: 6-ELEUTERIO MEMORY: MEMORY - STEP 1: Does the patient need help from a person or device, or need extra time to remember frequently encount ered people, daily routines, and executing requests? No. MEMORY - STEP 2: Does the patient have slight difficulty recognizing frequently encountered people, daily routines, or executing requests without the need for repetition or using self-initiated or environmental cues to remember? Yes. MEMORY - SCORE: 6-ELEUTERIO SIGNATURE PANEL: The following modified sections: Eating - Score, Grooming - Score, Bathing - Score, Dressing - Upper Body - Score, Dressing - Lower Body - Score, Toileting - Score, Bladder Management - Score, Bowel Man agement - Score, Transfers: Bed, Chair, Wheelchair - Score, Transfers: Toilet - Score, Transfers: Crystal wer - Score, Transfers: Tub - Score, Locomotion: Walk - Score, Locomotion: Wheelchair - Score, Compre hension - Score, Expression - Score, Social Interaction - Score, Problem Solving - Score, Memory - Sc ore were [electronically] signed by Rai Pate on SunJun 25 2019 14:33:33 GMT-0500 (Central Daylight Time)
--- NOTE | 2019-06-25 15:22 | FAST ---
ENCOUNTER DATE AND TIME: 06/25/2019 08:00 (CDT) NAME REGGIE AMBROSE DATE OF : 1940 DATE OF ADMISSION: 06/17/2019 17:06 (CDT) PHONE: AGE: 79 SSN# [id number] GENDER: Male ENCOUNTER PHYSICIAN: Dr. Matthew Martin ADMISSION DIAGNOSIS: - Orthopaedic Disorders 08 - Unilateral Hip Fracture (08.11) Right Femoral Neck Fracture. EATING: Activity did not occur on this shift EATING - SCORE: 0-UNK GROOMING: Activity did not occur on this shift GROOMING - SCORE: 0-UNK BATHING: Activity did not occur on this shift BATHING - SCORE: 0-UNK DRESSING - UPPER BODY: Activity did not occur on this shift Patient is not dressing in public clothing ARTICLES SCORE Total number of steps: 0 DRESSING - UPPER BODY - SCORE: 0-UNK DRESSING - LOWER BODY: Activity did not occur on this shift Patient is not dressing in public clothing ARTICLES SCORE Total number of steps: 0 DRESSING - LOWER BODY - SCORE: 0-UNK TOILETING: Activity did not occur on this shift TOILETING - SCORE: 0-UNK BLADDER MANAGEMENT: Activity did not occur on this shift BLADDER MANAGEMENT - SCORE: 7-IND BOWEL MANAGEMENT: Activity did not occur on this shift BOWEL MANAGEMENT - SCORE: 7-IND TRANSFERS: BED, CHAIR, WHEELCHAIR: TRANSFERS: BED, CHAIR, WHEELCHAIR - STEP 1: Does the patient require assistance of a person or device, or need extra time with bed, chair, or whe elchair transfers? Yes. TRANSFERS: BED, CHAIR, WHEELCHAIR - STEP 2: Does the patient require the assistance of a helper? Yes. TRANSFERS: BED, CHAIR, WHEELCHAIR - STEP 3: How much assistance does the patient require from the helper? Steadying/guiding assistance TRANSFERS: BED, CHAIR, WHEELCHAIR - SCORE: 4-MIN TRANSFERS: TOILET: Activity did not occur on this shift TRANSFERS: TOILET - SCORE: 0-UNK TRANSFERS: SHOWER: Activity did not occur on this shift TRANSFERS: SHOWER - SCORE: 0-UNK TRANSFERS: TUB: Activity did not occur on this shift TRANSFERS: TUB - SCORE: 0-UNK LOCOMOTION: WALK: LOCOMOTION: WALK - STEP 1: Does the patient need help from a person or device, or need extra time to walk 150 feet? Yes. LOCOMOTION: WALK - STEP 2: How much assistance does the patient require to walk a minimum of 150 feet? Patient walks less than 1 50 feet - but more than 50 feet - with the assistance of only one helper LOCOMOTION: WALK - SCORE: 2-MAX LOCOMOTION: WHEELCHAIR: Activity did not occur on this shift LOCOMOTION: WHEELCHAIR - SCORE: 0-UNK LOCOMOTION: STAIRS: Activity did not occur on this shift LOCOMOTION: STAIRS - SCORE: 0-UNK COMPREHENSION: COMPREHENSION - SCORE: 0-UNK EXPRESSION EXPRESSION - SCORE: 0-UNK SOCIAL INTERACTION: SOCIAL INTERACTION - SCORE: 0-UNK PROBLEM SOLVING: PROBLEM SOLVING - SCORE: 0-UNK MEMORY: MEMORY - SCORE: 0-UNK SIGNATURE PANEL: The following modified sections: Transfers: Bed, Chair, Wheelchair - Score, Transfers: Toilet - Score , Locomotion: Walk - Score, Locomotion: Wheelchair - Score, Locomotion: Stairs - Score were [electron ically] signed by Ayan Flowers PT on SunJun 25 2019 15:21:34 [facility]-0500 (Central Daylight Time)
[2019-06-25] MEDS: ATORVASTATIN 40 MG TAB PO SCH (20:41)
--- NOTE | 2019-06-26 00:13 | R.PN ---
ENCOUNTER DATE AND TIME: 06/26/2019 00:04 (CDT) NAME REGGIE AMBROSE DATE OF : 1940 DATE OF ADMISSION: 06/17/2019 17:06 (CDT) Right Femoral Neck FractureCHIEF COMPLAINT: Right femoral neck fracture SUBJECTIVE: Pt denied any depression. Pt denied any Shortness of Breath. VITAL SIGNS Temperature: 97.8 F SBP/DBP: 96/64 Pulse: 73 Resp: 16 MEDICATION ALLERGIES: No Known Drug Allergies (NKDA) ENVIRONMENTAL ALLERGIES: None Known - Substance Allergies None Known - Other Allergies None Known NURSING: - Shower allowing shower - Skin care per protocol PRECAUTIONS: - Posterior Hip Precaution No adduction across midline No external rotation No hip flexion >90 degrees No internal rotation No wheel chair propulsion - Weight Bearing Precaution WBAT right LE ACTIVITIES OOB only with supervision THERAPIES: - Dietary and Nutrition Adequate Nutrition. Nutritional Education. Nutritional Supplements. PHYSICAL EXAM - Gen Alert and awake Lying in bed No apparent distress Oriented to: person, time, and place - Skin No breakdown No abnormalities - Eyes No abnormalities - ENMT No abnormalities - Neck No abnormalities - CVS RRR - Chest No abnormalities - Abd Soft - GI Non distended Deferred - No abnormalities - Ext Right hip surgical site has good hemostasis. - MSK 4+/5 weakness in right lower extremity - Neuro 4/5 strength right lower extremity. - Psych No abnormalities ASSESSMENT: Pt. is a 79 yo Right-handed white male.On 06/10/2019 he was admitted to [facility] with diagnosis Right Femoral Neck Fracture.His impairment category is Orthopaedic Disorders 08 - Unilateral Hip Fracture (08.11).Pre-morbidly, Pt. was independent/mod-I in Self-Care, Sphincter Cont rol, Transfers Control, Locomotion, Communication, and Social Cognition; and he had good Sphincter Co ntrol.Currently, he has deficits of Self-Care, Transfers Control, Locomotion, Endurance, Balance, and Safety Awareness.Pt. is now referred to [facility] for acute in-patient rehab ilitation in order to maximize patient's functional independence in activities of daily living, stren gth, ROM, and mobility.- Rehab Goal Patient has realistic goal of being discharged at assistance level 6-Kaitlin to reside at Home with Fam josé miguel/Relatives. MDM/PLAN: - Physical Therapy Decreased range of motion - to improve, our physical therapists will perform initial evaluation of p t's status upon admission and devise an individualized program for increasing patient's Range of John on. Gait dysfunction - to improve, our physical therapists will perform initial evaluation of pt's statu s upon admission and devise an individualized program for Gait Training, and Wheel Chair mobility Inability to transfer - to improve, our physical therapists will perform initial evaluation of pt's status upon admission and devise an individualized program for Bed mobility Need for home safety evaluation - to improve, our physical therapists will perform initial evaluatio n of pt's status upon admission and devise an individualized program for Home Evaluation Need in caregiver upon discharge - to improve, our physical therapists will perform initial evaluati on of pt's status upon admission and devise an individualized program for Caregiver Training New precaution - to improve, our physical therapists will perform initial evaluation of pt's status upon admission and devise an individualized program for Patient precaution education Poor balance - to improve, our physical therapists will perform initial evaluation of pt's status up on admission and devise an individualized program for Balance Training Poor endurance - to improve, our physical therapists will perform initial evaluation of pt's status upon admission and devise an individualized program for Endurance Training Weakness - to improve, our physical therapists will perform initial evaluation of pt's status upon a dmission and devise an individualized program for Aquatic Therapy, Neuromuscular Reeducation, and Str engthening Achieving independence - to improve, our physical therapists will perform initial evaluation of pt's status upon admission and devise an individualized program for Community Reintegration Activities - Occupational Therapy ADL deficits - to improve, our occupation therapists will perform initial evaluation of pt's status upon admission and devise an individualized program for Bathing, Bed mobility, Community Reintegratio n, Cooking, Dressing, Eating, Fine Motor Skills, Grooming, Homemaking, Kitchen Mobility, Laundry, Pat ient Education, Safety Awareness, Splinting - Positioning, Transfers(Toilet, Tub, Shower), and Wheel Chair Management Need for child care teacher - to improve, our occupation therapists will perform initial evaluation of pt's status upon admission and devise an individualized program for Caregiver Training Weakness - to improve, our occupation therapists will perform initial evaluation of pt's status upon admission and devise an individualized program for Aquatic Therapy, Balance, Endurance, UE ROM, and UE strengthening - Other See attached MAR (Medication Administration Record) Irving Ambrose.pdf See attached MAR (Medication Administration Record) See attached MAR (Medication Administration Record) Irving Ambrose.pdf - Anterior Hip Precaution No abduction No active extension No adduction across midline No external rotation No hip flexion >90 degrees No internal rotation - Diet - Liquid Texture Continue Regular - Tube Feed Continue N/A - Diet Type Continue Regular - Posterior Hip Precaution No adduction across midline No external rotation No hip flexion >90 degrees No internal rotation No wheel chair propulsion - Weight Bearing Precaution NWB right LE WBAT right LE - Skin care per protocol - Diet - Solid Texture Continue Regular - Shower allowing shower FUNCTIONAL STATUS: - Self-Care A. Eating sup B. Grooming sup C. Bathing sup D. Dressing - Upper sup E. Dressing - Lower modA F. Toileting modA - Sphincter Control G: Bladder control Ind H: Bowel control Ind - Transfers Control I. Bed/Chair/Wheelchair modA J. Toilet modA K. Tub/Shower ADNO - Locomotion L. Walk/Wheelchair (C) CGA L. Walk/Wheelchair (W) CGA M. Stairs ADNO - Communication N. Comprehension (B) Ind O. Expression (B) Ind - Social Cognition P. Social Interaction Ind Q. Problem Solving Ind R. Memory Ind - Endurance Fair - Balance Fair - Safety Awareness Fair CURRENT FUNC. DEFICITS: Self-Care, Transfers Control, Locomotion, Endurance, Balance, and Safety Awareness SIGNATURE PANEL: (CDT)
[2019-06-26] MEDS: LEVOTHYROXINE SOD 0.05 MG TABLET PO SCH (05:22)
[2019-06-26 07:05] LABS: Basophils % 0.9 % (0-1.3); Hematocrit 31.4 % (39.6-49.0); Lymphocytes % 14.7 % (15.3-44.8); MPV 9.2 fL (7.6-11.3); RBC Red Blood Cell Count 3.09 M/uL (4.33-5.43)
[2019-06-26] MEDS: ENSURE HIGH PROTEIN 237 ML CAN PO SCH ×3 (07:30→16:30)
[2019-06-26 07:34] LABS: Albumin 2.6 g/dL (3.4-5.0); Magnesium 2.2 mg/dL (1.8-2.4); Potassium 4.7 mmol/L (3.5-5.1); Prealbumin 9.9 mg/dL (20-40)
[2019-06-26] MEDS: PROMOD 30 ML DOSE PO SCH ×2 (08:00→20:37)
[2019-06-26] MEDS: ALLOPURINOL 300 MG TAB PO SCH (08:48)
[2019-06-26] MEDS: ISOSORBIDE MONO SR 30 MG TAB PO SCH (08:48)
[2019-06-26] MEDS: HYDROCODONE/APAP 5/325 MG TAB PO PRN ×3 (08:48→20:43)
[2019-06-26] MEDS: ASPIRIN EC 81 MG TAB PO SCH (08:48)
[2019-06-26] MEDS: APIXABAN 2.5 MG TABLET PO SCH ×2 (08:48→20:37)
[2019-06-26] MEDS: ZINC SULFATE 220 MG CAP PO SCH (08:48)
[2019-06-26] MEDS: DOCUSATE NA 100 MG CAP PO PRN (08:49)
--- NOTE | 2019-06-26 11:39 | RAD REPORT ---
EXAM DESCRIPTION: Agueda Single View06/26/2019 11:16 am CLINICAL HISTORY: Shortness of breath COMPARISON: May 2019 FINDINGS: Mild bilateral pulmonary opacities with small pleural effusions. Heart is enlarged IMPRESSION: CHF
--- NOTE | 2019-06-26 14:25 | FAST ---
SHIFT START DATE/TIME: 06/26/2019 07:00 (CDT) SHIFT END DATE/TIME: 06/26/2019 19:00 (CDT) NAME REGGIE AMBROSE DATE OF : 1940 DATE OF ADMISSION: 06/17/2019 17:06 (CDT) PHONE: AGE: 79 N# [id number] GENDER: Male ENCOUNTER PHYSICIAN: Dr. Todd Westfall M.D. ADMISSION DIAGNOSIS: - Orthopaedic Disorders 08 - Unilateral Hip Fracture (08.11) Right Femoral Neck Fracture. EATING: EATING - STEP 1: Does the patient require the assistance of a person or device, or need extra time when eating? Yes. EATING - STEP 2: Does the patient require the assistance of a helper? No, patient only requires an assistive device, O R s/he takes more than reasonable time to eat, OR there is a safety concern, OR s/he requires modifie d food consistency EATING - SCORE: 6-ELEUTERIO GROOMING: Activity did not occur on this shift GROOMING - SCORE: 0-UNK BATHING: Activity did not occur on this shift BATHING - SCORE: 0-UNK DRESSING - UPPER BODY: Activity did not occur on this shift ARTICLES SCORE Total number of steps: 0 DRESSING - UPPER BODY - SCORE: 0-UNK DRESSING - LOWER BODY: Activity did not occur on this shift ARTICLES SCORE Total number of steps: 0 DRESSING - LOWER BODY - SCORE: 0-UNK TOILETING: TOILETING - STEP 1: Does the patient require the assistance of a person or device, or need extra time with toileting? Yes . TOILETING - STEP 2: Does the patient require the assistance of a helper? Yes. TOILETING - STEP 3: How much assistance does the patient require from the helper? Hands-on assistance from the helper TOILETING - STEP 4: Of the 3 tasks: 1) Adjusting clothing prior to use, 2) Cleansing of perineal area, 3) Adjusting clot barb after use; How many tasks does the patient perform WITHOUT assistance of the helper? Two tasks TOILETING - SCORE: 3-MOD BLADDER MANAGEMENT: BLADDER MANAGEMENT - STEP 1: Does the patient control the bladder completely and intentionally without equipment or devices or med ications, and is always continent? No. BLADDER MANAGEMENT - STEP 2: Does the patient require the assistance of a helper? No, patient requires and independently uses an a ssistive device, such as a urinal, bedpan, bedside commode, catheter, absorbent pad, or collecting de vice BLADDER MANAGEMENT - SCORE: 6-ELEUTERIO BOWEL MANAGEMENT: Activity did not occur on this shift BOWEL MANAGEMENT - SCORE: 7-IND TRANSFERS: BED, CHAIR, WHEELCHAIR: TRANSFERS: BED, CHAIR, WHEELCHAIR - STEP 1: Does the patient require assistance of a person or device, or need extra time with bed, chair, or whe elchair transfers? Yes. TRANSFERS: BED, CHAIR, WHEELCHAIR - STEP 2: Does the patient require the assistance of a helper? Yes. TRANSFERS: BED, CHAIR, WHEELCHAIR - STEP 3: How much assistance does the patient require from the helper? Lifting of the legs TRANSFERS: BED, CHAIR, WHEELCHAIR - STEP 4: How many legs does the patient require the helper to lift? both legs TRANSFERS: BED, CHAIR, WHEELCHAIR - SCORE: 3-MOD TRANSFERS: TOILET: TRANSFERS: TOILET - STEP 1: Does the patient require the assistance of a person or device, or need extra time with toilet transfe rs? Yes. TRANSFERS: TOILET - STEP 2: Does the patient require the assistance of a helper? Yes. TRANSFERS: TOILET - STEP 3: How much assistance does the patient require from the helper? Patient performs half or more of the tr ansferring tasks TRANSFERS: TOILET - STEP 4: Does the patient need only incidental help such as contact guard or steadying during toilet transfer? No. Patient needs more than incidental help TRANSFERS: TOILET - SCORE: 3-MOD TRANSFERS: SHOWER: Activity did not occur on this shift TRANSFERS: SHOWER - SCORE: 0-UNK TRANSFERS: TUB: Activity did not occur on this shift TRANSFERS: TUB - SCORE: 0-UNK LOCOMOTION: WALK: Activity did not occur on this shift LOCOMOTION: WALK - SCORE: 0-UNK LOCOMOTION: WHEELCHAIR: Activity did not occur on this shift LOCOMOTION: WHEELCHAIR - SCORE: 0-UNK COMPREHENSION: COMPREHENSION: TYPE: Both COMPREHENSION - STEP 1: Does the patient require help from a person or device, or need extra time to understand complex and a bstract ideas (such as current events, finances, discharge planning, medical issues, relationships, e tc)? No. COMPREHENSION - STEP 2: Does the patient need extra time, require an assistive device (such as glasses for visual comprehensi on or a hearing aid for auditory comprehension) or does s/he have mild difficulty understanding compl ex and abstract information? Yes. COMPREHENSION - SCORE: 6-ELEUTERIO EXPRESSION EXPRESSION: TYPE: Both EXPRESSION - STEP 1: Does the patient require help from a person or device, or need extra time expressing complex and abst ract ideas (such as current events, finances, discharge planning, medical issues, relationships, etc) ? No. EXPRESSION - STEP 2: Does the patient need extra time, require an assistive device (such as augmentive communication syste m or a communication board), OR does s/he have mild difficulty expressing complex and abstract ideas (including mild dysarthria or mild word-find problems)? Yes. EXPRESSION - SCORE: 6-ELEUTERIO SOCIAL INTERACTION: SOCIAL INTERACTION - STEP 1: Does the patient require a helper to interact with others in social and therapeutic situations? No. SOCIAL INTERACTION - STEP 2: Does the patient need extra time in social situations, OR does s/he interact with staff, other patien ts, and family members ONLY in structured environments, OR does s/he require medication for social in teraction? Yes, patient needs extra time SOCIAL INTERACTION - SCORE: 6-ELEUTERIO PROBLEM SOLVING: PROBLEM SOLVING - STEP 1: Does the patient need help from a person or device, or need extra time to solve complex problems such as managing a checking account or confronting interpersonal problems? No. PROBLEM SOLVING - STEP 2: Does the patient require extra time to make decisions or solve problems, OR does s/he have slight dif ficulty reading, initiating, or self-correcting in unfamiliar situations? Yes, patient needs extra ti me. PROBLEM SOLVING - SCORE: 6-ELEUTERIO MEMORY: MEMORY - STEP 1: Does the patient need help from a person or device, or need extra time to remember frequently encount ered people, daily routines, and executing requests? No. MEMORY - STEP 2: Does the patient have slight difficulty recognizing frequently encountered people, daily routines, or executing requests without the need for repetition or using self-initiated or environmental cues to remember? No. MEMORY - SCORE: 7-IND SIGNATURE PANEL: The following modified sections: Eating - Score, Grooming - Score, Bathing - Score, Dressing - Upper Body - Score, Dressing - Lower Body - Score, Toileting - Score, Bladder Management - Score, Bowel Man agement - Score, Transfers: Bed, Chair, Wheelchair - Score, Transfers: Toilet - Score, Transfers: Crystal wer - Score, Transfers: Tub - Score, Locomotion: Walk - Score, Locomotion: Wheelchair - Score, Compre hension - Score, Expression - Score, Social Interaction - Score, Problem Solving - Score, Memory - Sc ore were [electronically] signed by Rai Pate on SunJun 26 2019 14:24:04 GMT-0500 (Central Daylight Time)
--- NOTE | 2019-06-26 15:22 | FAST ---
ENCOUNTER DATE AND TIME: 06/26/2019 08:00 (CDT) NAME REGGIE AMBROSE DATE OF : 1940 DATE OF ADMISSION: 06/17/2019 17:06 (CDT) PHONE: AGE: 79 SSN# [id number] GENDER: Male ENCOUNTER PHYSICIAN: Dr. Todd Westfall M.D. ADMISSION DIAGNOSIS: - Orthopaedic Disorders 08 - Unilateral Hip Fracture (08.11) Right Femoral Neck Fracture. EATING: Activity did not occur on this shift EATING - SCORE: 0-UNK GROOMING: Activity did not occur on this shift GROOMING - SCORE: 0-UNK BATHING: Activity did not occur on this shift BATHING - SCORE: 0-UNK DRESSING - UPPER BODY: Activity did not occur on this shift Patient is not dressing in public clothing ARTICLES SCORE Total number of steps: 0 DRESSING - UPPER BODY - SCORE: 0-UNK DRESSING - LOWER BODY: Activity did not occur on this shift Patient is not dressing in public clothing ARTICLES SCORE Total number of steps: 0 DRESSING - LOWER BODY - SCORE: 0-UNK TOILETING: Activity did not occur on this shift TOILETING - SCORE: 0-UNK BLADDER MANAGEMENT: Activity did not occur on this shift BLADDER MANAGEMENT - SCORE: 7-IND BOWEL MANAGEMENT: Activity did not occur on this shift BOWEL MANAGEMENT - SCORE: 7-IND TRANSFERS: BED, CHAIR, WHEELCHAIR: TRANSFERS: BED, CHAIR, WHEELCHAIR - STEP 1: Does the patient require assistance of a person or device, or need extra time with bed, chair, or whe elchair transfers? Yes. TRANSFERS: BED, CHAIR, WHEELCHAIR - STEP 2: Does the patient require the assistance of a helper? Yes. TRANSFERS: BED, CHAIR, WHEELCHAIR - STEP 3: How much assistance does the patient require from the helper? Only supervision TRANSFERS: BED, CHAIR, WHEELCHAIR - SCORE: 5-SUP TRANSFERS: TOILET: Activity did not occur on this shift TRANSFERS: TOILET - SCORE: 0-UNK TRANSFERS: SHOWER: Activity did not occur on this shift TRANSFERS: SHOWER - SCORE: 0-UNK TRANSFERS: TUB: Activity did not occur on this shift TRANSFERS: TUB - SCORE: 0-UNK LOCOMOTION: WALK: LOCOMOTION: WALK - STEP 1: Does the patient need help from a person or device, or need extra time to walk 150 feet? Yes. LOCOMOTION: WALK - STEP 2: How much assistance does the patient require to walk a minimum of 150 feet? Only supervision, cuing, or coaxing LOCOMOTION: WALK - SCORE: 5-SUP LOCOMOTION: WHEELCHAIR: LOCOMOTION: WHEELCHAIR - STEP 1: Does the patient need help to go 150 feet in a wheelchair? No. LOCOMOTION: WHEELCHAIR - SCORE: 6-ELEUTERIO LOCOMOTION: STAIRS: Activity did not occur on this shift LOCOMOTION: STAIRS - SCORE: 0-UNK COMPREHENSION: COMPREHENSION - SCORE: 0-UNK EXPRESSION EXPRESSION - SCORE: 0-UNK SOCIAL INTERACTION: SOCIAL INTERACTION - SCORE: 0-UNK PROBLEM SOLVING: PROBLEM SOLVING - SCORE: 0-UNK MEMORY: MEMORY - SCORE: 0-UNK SIGNATURE PANEL: The following modified sections: Transfers: Bed, Chair, Wheelchair - Score, Transfers: Toilet - Score , Locomotion: Walk - Score, Locomotion: Wheelchair - Score, Locomotion: Stairs - Score were [electron ically] signed by Ayan Flowers PT on SunJun 26 2019 15:20:45 T-0500 (Central Daylight Time)
[2019-06-26] MEDS: ATORVASTATIN 40 MG TAB PO SCH (20:37)
--- NOTE | 2019-06-27 01:33 | FAST ---
SHIFT START DATE/TIME: 06/26/2019 19:00 (CDT) SHIFT END DATE/TIME: 06/27/2019 07:00 (CDT) NAME REGGIE AMBROSE DATE OF : 1940 DATE OF ADMISSION: 06/17/2019 17:06 (CDT) PHONE: AGE: 79 N# [id number] GENDER: Male ENCOUNTER PHYSICIAN: Dr. Todd Westfall M.D. ADMISSION DIAGNOSIS: - Orthopaedic Disorders 08 - Unilateral Hip Fracture (08.11) Right Femoral Neck Fracture. EATING: Activity did not occur on this shift EATING - SCORE: 0-UNK GROOMING: Activity did not occur on this shift GROOMING - SCORE: 0-UNK BATHING: Activity did not occur on this shift BATHING - SCORE: 0-UNK DRESSING - UPPER BODY: Patient is not dressing in public clothing ARTICLES SCORE Total number of steps: 0 DRESSING - UPPER BODY - SCORE: 0-UNK DRESSING - LOWER BODY: Patient is not dressing in public clothing ARTICLES SCORE Total number of steps: 0 DRESSING - LOWER BODY - SCORE: 0-UNK TOILETING: TOILETING - STEP 1: Does the patient require the assistance of a person or device, or need extra time with toileting? Yes . TOILETING - STEP 2: Does the patient require the assistance of a helper? Yes. TOILETING - STEP 3: How much assistance does the patient require from the helper? Only supervision TOILETING - SCORE: 5-SUP BLADDER MANAGEMENT: BLADDER MANAGEMENT - STEP 1: Does the patient control the bladder completely and intentionally without equipment or devices or med ications, and is always continent? No. BLADDER MANAGEMENT - STEP 2: Does the patient require the assistance of a helper? Yes. BLADDER MANAGEMENT - STEP 3: How much assistance does the patient require from the helper? Only set-up of equipment - such as plac ing it within reach of the patient or emptying a device - to maintain either satisfactory voiding pat tern or managing an external device, such as an absorbent pad, ileal device, or catheter BLADDER MANAGEMENT - SCORE: 5-SUP BOWEL MANAGEMENT: BOWEL MANAGEMENT - STEP 1: Does the patient control bowels completely and intentionally without equipment devices or medications AND is always continent? No. BOWEL MANAGEMENT - STEP 2: Does the patient require the assistance of a helper? No, patient requires medication for control such as stool softeners, suppositories, laxatives, enemas, or OTC medications BOWEL MANAGEMENT - SCORE: 6-ELEUTERIO TRANSFERS: BED, CHAIR, WHEELCHAIR: Activity did not occur on this shift TRANSFERS: BED, CHAIR, WHEELCHAIR - SCORE: 0-UNK TRANSFERS: TOILET: Activity did not occur on this shift TRANSFERS: TOILET - SCORE: 0-UNK TRANSFERS: SHOWER: Activity did not occur on this shift TRANSFERS: SHOWER - SCORE: 0-UNK TRANSFERS: TUB: Activity did not occur on this shift TRANSFERS: TUB - SCORE: 0-UNK LOCOMOTION: WALK: Activity did not occur on this shift LOCOMOTION: WALK - SCORE: 0-UNK LOCOMOTION: WHEELCHAIR: Activity did not occur on this shift LOCOMOTION: WHEELCHAIR - SCORE: 0-UNK COMPREHENSION: COMPREHENSION: TYPE: Both COMPREHENSION - STEP 1: Does the patient require help from a person or device, or need extra time to understand complex and a bstract ideas (such as current events, finances, discharge planning, medical issues, relationships, e tc)? No. COMPREHENSION - STEP 2: Does the patient need extra time, require an assistive device (such as glasses for visual comprehensi on or a hearing aid for auditory comprehension) or does s/he have mild difficulty understanding compl ex and abstract information? Yes. COMPREHENSION - SCORE: 6-ELEUTERIO EXPRESSION EXPRESSION: TYPE: Both EXPRESSION - STEP 1: Does the patient require help from a person or device, or need extra time expressing complex and abst ract ideas (such as current events, finances, discharge planning, medical issues, relationships, etc) ? No. EXPRESSION - STEP 2: Does the patient need extra time, require an assistive device (such as augmentive communication syste m or a communication board), OR does s/he have mild difficulty expressing complex and abstract ideas (including mild dysarthria or mild word-find problems)? No. EXPRESSION - SCORE: 7-IND SOCIAL INTERACTION: SOCIAL INTERACTION - STEP 1: Does the patient require a helper to interact with others in social and therapeutic situations? No. SOCIAL INTERACTION - STEP 2: Does the patient need extra time in social situations, OR does s/he interact with staff, other patien ts, and family members ONLY in structured environments, OR does s/he require medication for social in teraction? Yes, patient needs extra time SOCIAL INTERACTION - SCORE: 6-ELEUTERIO PROBLEM SOLVING: PROBLEM SOLVING - STEP 1: Does the patient need help from a person or device, or need extra time to solve complex problems such as managing a checking account or confronting interpersonal problems? Yes. PROBLEM SOLVING - STEP 2: Does the patient solve basic routine problems half or more of the time? Yes. PROBLEM SOLVING - STEP 3: How often does the patient need help to solve basic routine problems? 10%-24% of the time PROBLEM SOLVING - SCORE: 4-MIN MEMORY: MEMORY - STEP 1: Does the patient need help from a person or device, or need extra time to remember frequently encount ered people, daily routines, and executing requests? No. MEMORY - STEP 2: Does the patient have slight difficulty recognizing frequently encountered people, daily routines, or executing requests without the need for repetition or using self-initiated or environmental cues to remember? Yes. MEMORY - SCORE: 6-ELEUTERIO SIGNATURE PANEL: The following modified sections: Eating - Score, Grooming - Score, Dressing - Upper Body - Score, Sascha ssing - Lower Body - Score, Toileting - Score, Bladder Management - Score, Bowel Management - Score, Transfers: Bed, Chair, Wheelchair - Score, Transfers: Toilet - Score, Transfers: Shower - Score, Oliveira sfers: Tub - Score, Locomotion: Walk - Score, Locomotion: Wheelchair - Score, Comprehension - Score, Expression - Score, Social Interaction - Score, Problem Solving - Score, Memory - Score were [electro nically] signed by Joyce Damon CNA on SunJun 27 2019 01:32:11 T-0500 (Central Daylight Time)
[2019-06-27] MEDS: LEVOTHYROXINE SOD 0.05 MG TABLET PO SCH (07:21)
[2019-06-27] MEDS: HYDROCODONE/APAP 5/325 MG TAB PO PRN (07:21)
[2019-06-27] MEDS: ENSURE HIGH PROTEIN 237 ML CAN PO SCH ×3 (07:30→16:30)
[2019-06-27] MEDS: PROMOD 30 ML DOSE PO SCH ×2 (08:00→20:55)
[2019-06-27] MEDS: ZINC SULFATE 220 MG CAP PO SCH (09:08)
[2019-06-27] MEDS: ALLOPURINOL 300 MG TAB PO SCH (09:08)
[2019-06-27] MEDS: APIXABAN 2.5 MG TABLET PO SCH ×2 (09:08→20:55)
[2019-06-27] MEDS: ASPIRIN EC 81 MG TAB PO SCH (09:08)
[2019-06-27] MEDS: ISOSORBIDE MONO SR 30 MG TAB PO SCH (09:08)
--- NOTE | 2019-06-27 09:33 | P.RH.PN ---
Estimated Length of Stay: 16 Expected Discharge Date: 07/02/19 Discharge Disposition Plan: Home Family Support: Yes Alf Goal: Mobility, Transfers, Self Care Vital Signs: Last Vital Signs Temp 97.8 F 06/27/19 06:35 Pulse 80 06/27/19 06:35 Resp 16 06/27/19 06:35 BP 99/61 06/27/19 06:35 Pulse Ox 96 06/27/19 06:35 Laboratory: Laboratory Last Values WBC 6.8 K/uL (4.3-10.9) D 06/26/19 06:36 RBC 3.09 M/uL (4.33-5.43) L 06/26/19 06:36 Hgb 10.1 g/dL (13.6-17.9) L 06/26/19 06:36 Hct 31.4 % (39.6-49.0) L 06/26/19 06:36 MCV 101.6 fL (80-100) H 06/26/19 06:36 MCH 32.8 pg (27.0-35.0) 06/26/19 06:36 MCHC 32.3 g/dL (32.0-36.0) 06/26/19 06:36 RDW 19.1 % (12.1-15.2) H 06/26/19 06:36 Plt Count 153 K/uL (152-406) 06/26/19 06:36 MPV 9.2 fL (7.6-11.3) 06/26/19 06:36 Neutrophils % 72.6 % (41.7-73.7) 06/26/19 06:36 Lymphocytes % 14.7 % (15.3-44.8) L 06/26/19 06:36 Monocytes % 6.9 % (3.3-12.3) 06/26/19 06:36 Eosinophils % 4.9 % (0-4.4) H 06/26/19 06:36 Basophils % 0.9 % (0-1.3) 06/26/19 06:36 Absolute Neutrophils 4.9 K/uL (1.8-8.0) 06/26/19 06:36 Absolute Lymphocytes 1.0 K/uL (0.7-4.9) 06/26/19 06:36 Absolute Monocytes 0.5 K/uL (0.1-1.3) 06/26/19 06:36 Absolute Eosinophils 0.3 K/uL (0-0.5) 06/26/19 06:36 Absolute Basophils 0.1 K/uL (0-0.5) 06/26/19 06:36 Sodium 144 mmol/L (136-145) 06/26/19 06:36 Potassium 4.7 mmol/L (3.5-5.1) 06/26/19 06:36 Chloride 117 mmol/L (98-107) H 06/26/19 06:36 Carbon Dioxide 21 mmol/L (21-32) 06/26/19 06:36 BUN 41 mg/dL (7-18) H 06/26/19 06:36 Creatinine 1.22 mg/dL (0.55-1.3) 06/26/19 06:36 Estimated GFR 57 mL/min (=/>90) L 06/26/19 06:36 Glucose 87 mg/dL (74-106) 06/26/19 06:36 Calcium 8.4 mg/dL (8.5-10.1) L 06/26/19 06:36 Phosphorus 4.6 mg/dL (2.5-4.9) 06/20/19 06:30 Magnesium 2.2 mg/dL (1.8-2.4) 06/26/19 06:36 Total Bilirubin 1.1 mg/dL (0.2-1.0) H 06/20/19 06:30 AST 17 U/L (15-37) 06/20/19 06:30 ALT 11 U/L (12-78) L 06/20/19 06:30 Alkaline Phosphatase 137 U/L (45-117) H 06/20/19 06:30 Serum Total Protein 5.2 g/dL (6.4-8.2) L 06/20/19 06:30 Albumin 2.6 g/dL (3.4-5.0) L 06/26/19 06:36 Globulin 2.5 g/dL (2.3-3.5) 06/20/19 06:30 Albumin/Globulin Ratio 1.1 (1.1-1.8) 06/20/19 06:30 Prealbumin 9.9 mg/dL (20-40) L 06/26/19 06:36 Urine Color Dk yellow 06/17/19 20:30 Urine Appearance Clear 06/17/19 20:30 Urine pH 5.0 (5.0-7.0) 06/17/19 20:30 Ur Specific Parachute 1.020 (1.005-1.030) 06/17/19 20:30 Urine Ketones Negative (NEG) 06/17/19 20:30 Urine Blood Negative (NEG) 06/17/19 20:30 Urine Nitrite Negative (NEG) 06/17/19 20:30 Urine Bilirubin Negative (NEG) 06/17/19 20:30 Urine Urobilinogen 0.2 mg/dL (0.2-1.0) 06/17/19 20:30 Ur Leukocyte Esterase Negative (NEG) 06/17/19 20:30 Urine RBC None seen /HPF (NONE SEEN) 06/17/19 20:30 Urine WBC <5 /HPF (<5) 06/17/19 20:30 Ur Squamous Epith Cells <5 /HPF (NONE SEEN) 06/17/19 20:30 Urine Bacteria <20 /HPF (NONE SEEN) 06/17/19 20:30 Urine Culture Reflexed Not needed 06/17/19 20:30 Urine Glucose Negative (NEG) 06/17/19 20:30 Urine Total Protein Negative (NEG) 06/17/19 20:30 Weight: 159 lb 3.2 oz Wound Present: No Closed Surgical Incision Present: Yes Negative Pressure Wound Therapy Present: No Physician Update: Labs reviewed and are stable. He is standby assistance but slow. Ambulated 250' with standby assistance. Medical Issues: DVT Prophylaxis- Eliquis 2.5mg BID PO Pain Issues: Fraser 7.5/325mg Q4H PRN PO. Tramadol 50mg Q6H PRN PO Nutritional Needs: increase protein in diet Functional Improvement: pt has demonstrated improvement with functional mobility. pt is improving step length and gait speed. pt exhibits improved balance and stability during ambulation and functional transfers. Functional Improvement Occupational Therapy: Pt can benifit with cont therapy to address pt's overall weakness in the UE's and for static standing, while using the RW to assist with all functional transfers. Cont to educate pt on energy conservation techniques using the bath sponge while static standing for bathing and the clinical research analyst to doff gripper socks. Cont to address pt's static standing, endurance and activity tolerance for adl tasks. Summary: Patient's care plan and [facility] goals have been reviewed and revised as necessary. Please see the Rehabilitation Signature page for all necessary signatures.
[2019-06-27] MEDS: TRAMADOL HCL 50 MG TAB PO PRN (11:38)
[2019-06-27] MEDS ORDERED: FUROSEMIDE 20 MG TABLET PO ONE (12:59)
--- NOTE | 2019-06-27 13:34 | FAST ---
ENCOUNTER DATE AND TIME: 06/27/2019 08:00 (CDT) NAME REGGIE AMBROSE DATE OF : 1940 DATE OF ADMISSION: 06/17/2019 17:06 (CDT) PHONE: AGE: 79 SSN# [id number] GENDER: Male ENCOUNTER PHYSICIAN: Dr. oTdd Westfall M.D. ADMISSION DIAGNOSIS: - Orthopaedic Disorders 08 - Unilateral Hip Fracture (08.11) Right Femoral Neck Fracture. EATING: Activity did not occur on this shift EATING - SCORE: 0-UNK GROOMING: Comb/brush hair Wash, rinse, and dry face Wash, rinse, and dry hands GROOMING - STEP 1: Does the patient require the assistance of a person or device, or need extra time when grooming? Yes. GROOMING - STEP 2: Does the patient require the assistance of a helper? No. The patient only requires an assistive devic e, OR takes more than reasonable time to groom, OR there is a concern for safety as the patient groom s GROOMING - SCORE: 6-ELEUTERIO BATHING: Abdomen Buttocks Chest Left arm Left lower leg and foot Left upper leg Perineal area Right arm Right lower leg and foot Right upper leg BATHING - STEP 1: Does the patient require the assistance of a person or device, or need extra time when bathing? Yes. BATHING - STEP 2: Does the patient require the assistance of a helper? Yes. BATHING - STEP 3: How much assistance does the patient require from the helper? Only incidental help such as placement of a wash cloth in his/her hand a few times as s/he bathes OR help to bathe just one or two areas of the body BATHING - SCORE: 4-MIN DRESSING - UPPER BODY: T-shirt/pullover shirt (four steps) ARTICLES SCORE Total number of steps: 4 DRESSING - UPPER BODY - STEP 1: Does the patient require help from a person or device, or need extra time when dressing above the [address]? Yes. DRESSING - UPPER BODY - STEP 2: Does the patient require the assistance of a helper? No. Patient only requires an assistive device, s uch as a button hook, velcro, or office services assistant. OR s/he takes more than reasonable time as s/he dresses the upper body. OR there is a concern for safety when s/he dresses the upper body DRESSING - UPPER BODY - SCORE: 6-ELEUTERIO DRESSING - LOWER BODY: Elastic waist pants (three steps) Underwear (three steps) ARTICLES SCORE Total number of steps: 6 DRESSING - LOWER BODY - STEP 1: Does the patient require help from a person or device, or need extra time when dressing below the [address]? Yes. DRESSING - LOWER BODY - STEP 2: Does the patient require the assistance of a helper? Yes. DRESSING - LOWER BODY - STEP 3: Does the helper touch the patient while dressing? Yes. DRESSING - LOWER BODY - STEP 4: How many of the total steps does the patient complete on his/her own? 6 DRESSING - LOWER BODY - SCORE: 4-MIN TOILETING: Activity did not occur on this shift TOILETING - SCORE: 0-UNK BLADDER MANAGEMENT: Activity did not occur on this shift BLADDER MANAGEMENT - SCORE: 7-IND BOWEL MANAGEMENT: Activity did not occur on this shift BOWEL MANAGEMENT - SCORE: 7-IND TRANSFERS: BED, CHAIR, WHEELCHAIR: TRANSFERS: BED, CHAIR, WHEELCHAIR - STEP 1: Does the patient require assistance of a person or device, or need extra time with bed, chair, or whe elchair transfers? Yes. TRANSFERS: BED, CHAIR, WHEELCHAIR - STEP 2: Does the patient require the assistance of a helper? Yes. TRANSFERS: BED, CHAIR, WHEELCHAIR - STEP 3: How much assistance does the patient require from the helper? Only supervision TRANSFERS: BED, CHAIR, WHEELCHAIR - SCORE: 5-SUP TRANSFERS: TOILET: Activity did not occur on this shift TRANSFERS: TOILET - SCORE: 0-UNK TRANSFERS: SHOWER: Activity did not occur on this shift TRANSFERS: SHOWER - SCORE: 0-UNK TRANSFERS: TUB: TRANSFERS: TUB - STEP 1: Does the patient require the assistance of a person or device, or need extra time with tub transfers? Yes. TRANSFERS: TUB - STEP 2: Does the patient require the assistance of a helper? Yes. TRANSFERS: TUB - STEP 3: How much assistance does the patient require from the helper? Incidental help such as contact guardin g or steadying, OR help to lift one leg into the tub TRANSFERS: TUB - SCORE: 4-MIN LOCOMOTION: WALK: Activity did not occur on this shift LOCOMOTION: WALK - SCORE: 0-UNK LOCOMOTION: WHEELCHAIR: Activity did not occur on this shift LOCOMOTION: WHEELCHAIR - SCORE: 0-UNK LOCOMOTION: STAIRS: Activity did not occur on this shift LOCOMOTION: STAIRS - SCORE: 0-UNK COMPREHENSION: COMPREHENSION: TYPE: Both COMPREHENSION - STEP 1: Does the patient require help from a person or device, or need extra time to understand complex and a bstract ideas (such as current events, finances, discharge planning, medical issues, relationships, e tc)? Yes. COMPREHENSION - STEP 2: Does the patient require help to understand questions or statements about basic needs or ideas (such as hunger, thirst, sleep, safety, daily schedule, room location, or discomfort) half or more of the t johnny? No. COMPREHENSION - STEP 3: How often does the patient need help to understand directions and conversation about basic needs? Les s than 10% of the time COMPREHENSION - SCORE: 5-SUP EXPRESSION EXPRESSION: TYPE: Both EXPRESSION - STEP 1: Does the patient require help from a person or device, or need extra time expressing complex and abst ract ideas (such as current events, finances, discharge planning, medical issues, relationships, etc) ? No. EXPRESSION - STEP 2: Does the patient need extra time, require an assistive device (such as augmentive communication syste m or a communication board), OR does s/he have mild difficulty expressing complex and abstract ideas (including mild dysarthria or mild word-find problems)? No. EXPRESSION - SCORE: 7-IND SOCIAL INTERACTION: SOCIAL INTERACTION - STEP 1: Does the patient require a helper to interact with others in social and therapeutic situations? No. SOCIAL INTERACTION - STEP 2: Does the patient need extra time in social situations, OR does s/he interact with staff, other patien ts, and family members ONLY in structured environments, OR does s/he require medication for social in teraction? Yes, patient needs extra time SOCIAL INTERACTION - SCORE: 6-ELEUTERIO PROBLEM SOLVING: PROBLEM SOLVING - STEP 1: Does the patient need help from a person or device, or need extra time to solve complex problems such as managing a checking account or confronting interpersonal problems? Yes. PROBLEM SOLVING - STEP 2: Does the patient solve basic routine problems half or more of the time? Yes. PROBLEM SOLVING - STEP 3: How often does the patient need help to solve basic routine problems? Less than 10% of the time PROBLEM SOLVING - SCORE: 5-SUP MEMORY: MEMORY - STEP 1: Does the patient need help from a person or device, or need extra time to remember frequently encount ered people, daily routines, and executing requests? Yes. MEMORY - STEP 2: How often does the patient need help to remember frequently encountered people, daily routines, and e xecuting requests? Less than 10% of the time MEMORY - SCORE: 5-SUP SIGNATURE PANEL: The following modified sections: Eating - Score, Grooming - Score, Bathing - Score, Dressing - Upper Body - Score, Dressing - Lower Body - Score, Toileting - Score, Transfers: Bed, Chair, Wheelchair - S core, Transfers: Toilet - Score, Transfers: Shower - Score, Transfers: Tub - Score, Comprehension - S core, Expression - Score, Social Interaction - Score, Problem Solving - Score, Memory - Score were [e lectronically] signed by Kiley Márquez OT on SunJun 27 2019 13:33:52 T-0500 ([place] Da ylight Time)
--- NOTE | 2019-06-27 17:36 | FAST ---
SHIFT START DATE/TIME: 06/27/2019 07:00 (CDT) SHIFT END DATE/TIME: 06/27/2019 19:00 (CDT) NAME REGGIE AMBROSE DATE OF : 1940 DATE OF ADMISSION: 06/17/2019 17:06 (CDT) PHONE: AGE: 79 N# [id number] GENDER: Male ENCOUNTER PHYSICIAN: Dr. Todd Westfall M.D. ADMISSION DIAGNOSIS: - Orthopaedic Disorders 08 - Unilateral Hip Fracture (08.11) Right Femoral Neck Fracture. EATING: EATING - STEP 1: Does the patient require the assistance of a person or device, or need extra time when eating? Yes. EATING - STEP 2: Does the patient require the assistance of a helper? No, patient only requires an assistive device, O R s/he takes more than reasonable time to eat, OR there is a safety concern, OR s/he requires modifie d food consistency EATING - SCORE: 6-ELEUTERIO GROOMING: Activity did not occur on this shift GROOMING - SCORE: 0-UNK BATHING: Activity did not occur on this shift BATHING - SCORE: 0-UNK DRESSING - UPPER BODY: Activity did not occur on this shift ARTICLES SCORE Total number of steps: 0 DRESSING - UPPER BODY - SCORE: 0-UNK DRESSING - LOWER BODY: Activity did not occur on this shift ARTICLES SCORE Total number of steps: 0 DRESSING - LOWER BODY - SCORE: 0-UNK TOILETING: TOILETING - STEP 1: Does the patient require the assistance of a person or device, or need extra time with toileting? Yes . TOILETING - STEP 2: Does the patient require the assistance of a helper? No. TOILETING - SCORE: 6-ELEUTERIO BLADDER MANAGEMENT: BLADDER MANAGEMENT - STEP 1: Does the patient control the bladder completely and intentionally without equipment or devices or med ications, and is always continent? Yes. BLADDER MANAGEMENT - SCORE: 7-IND BLADDER MANAGEMENT - FREQUENCY OF ACCIDENTS: BLADDER MANAGEMENT(FA) - STEP 1: How many accidents has the patient had during the current shift? 0 BOWEL MANAGEMENT: BOWEL MANAGEMENT - STEP 1: Does the patient control bowels completely and intentionally without equipment devices or medications AND is always continent? Yes. BOWEL MANAGEMENT - SCORE: 7-IND BOWEL MANAGEMENT - COMMENTS: Patient has ileostomy BOWEL MANAGEMENT - FREQUENCY OF ACCIDENTS: BOWEL MANAGEMENT(FA) - STEP 1: How many accidents has the patient had during the current shift? 0 TRANSFERS: BED, CHAIR, WHEELCHAIR: TRANSFERS: BED, CHAIR, WHEELCHAIR - STEP 1: Does the patient require assistance of a person or device, or need extra time with bed, chair, or whe elchair transfers? Yes. TRANSFERS: BED, CHAIR, WHEELCHAIR - STEP 2: Does the patient require the assistance of a helper? Yes. TRANSFERS: BED, CHAIR, WHEELCHAIR - STEP 3: How much assistance does the patient require from the helper? Steadying/guiding assistance TRANSFERS: BED, CHAIR, WHEELCHAIR - SCORE: 4-MIN TRANSFERS: TOILET: TRANSFERS: TOILET - STEP 1: Does the patient require the assistance of a person or device, or need extra time with toilet transfe rs? Yes. TRANSFERS: TOILET - STEP 2: Does the patient require the assistance of a helper? Yes. TRANSFERS: TOILET - STEP 3: How much assistance does the patient require from the helper? Patient performs half or more of the tr ansferring tasks TRANSFERS: TOILET - STEP 4: Does the patient need only incidental help such as contact guard or steadying during toilet transfer? Yes. TRANSFERS: TOILET - SCORE: 4-MIN TRANSFERS: SHOWER: Activity did not occur on this shift TRANSFERS: SHOWER - SCORE: 0-UNK TRANSFERS: TUB: Activity did not occur on this shift TRANSFERS: TUB - SCORE: 0-UNK LOCOMOTION: WALK: Activity did not occur on this shift LOCOMOTION: WALK - SCORE: 0-UNK LOCOMOTION: WHEELCHAIR: Activity did not occur on this shift LOCOMOTION: WHEELCHAIR - SCORE: 0-UNK COMPREHENSION: COMPREHENSION - SCORE: 0-UNK EXPRESSION EXPRESSION - SCORE: 0-UNK SOCIAL INTERACTION: SOCIAL INTERACTION - SCORE: 0-UNK PROBLEM SOLVING: PROBLEM SOLVING - SCORE: 0-UNK MEMORY: MEMORY - SCORE: 0-UNK SIGNATURE PANEL: The following modified sections: Eating - Score, Grooming - Score, Bathing - Score, Dressing - Upper Body - Score, Dressing - Lower Body - Score, Toileting - Score, Bladder Management - Score, Bowel Man agement - Score, Bowel Management - Comments:, Transfers: Bed, Chair, Wheelchair - Score, Transfers: Toilet - Score, Transfers: Shower - Score, Transfers: Tub - Score, Locomotion: Walk - Score, Locomoti on: Wheelchair - Score, Comprehension - Score, Expression - Score, Social Interaction - Score, Proble m Solving - Score, Memory - Score were [electronically] signed by Kelsie Sanchez CNA on SunJun 27 2019 17:35:40 GMT-0500 (Central Daylight Time)
[2019-06-27] MEDS: ATORVASTATIN 40 MG TAB PO SCH (20:55)
--- NOTE | 2019-06-28 02:49 | FAST ---
SHIFT START DATE/TIME: 06/27/2019 19:00 (CDT) SHIFT END DATE/TIME: 06/28/2019 07:00 (CDT) NAME REGGIE AMBROSE DATE OF : 1940 DATE OF ADMISSION: 06/17/2019 17:06 (CDT) PHONE: AGE: 79 N# [id number] GENDER: Male ENCOUNTER PHYSICIAN: Dr. Todd Westfall M.D. ADMISSION DIAGNOSIS: - Orthopaedic Disorders 08 - Unilateral Hip Fracture (08.11) Right Femoral Neck Fracture. EATING: Activity did not occur on this shift EATING - SCORE: 0-UNK GROOMING: Activity did not occur on this shift GROOMING - SCORE: 0-UNK BATHING: Activity did not occur on this shift BATHING - SCORE: 0-UNK DRESSING - UPPER BODY: Patient is not dressing in public clothing ARTICLES SCORE Total number of steps: 0 DRESSING - UPPER BODY - SCORE: 0-UNK DRESSING - LOWER BODY: Patient is not dressing in public clothing ARTICLES SCORE Total number of steps: 0 DRESSING - LOWER BODY - SCORE: 0-UNK TOILETING: Activity did not occur on this shift TOILETING - SCORE: 0-UNK BLADDER MANAGEMENT: BLADDER MANAGEMENT - STEP 1: Does the patient control the bladder completely and intentionally without equipment or devices or med ications, and is always continent? No. BLADDER MANAGEMENT - STEP 2: Does the patient require the assistance of a helper? Yes. BLADDER MANAGEMENT - STEP 3: How much assistance does the patient require from the helper? Only set-up of equipment - such as plac ing it within reach of the patient or emptying a device - to maintain either satisfactory voiding pat tern or managing an external device, such as an absorbent pad, ileal device, or catheter BLADDER MANAGEMENT - SCORE: 5-SUP BOWEL MANAGEMENT: Colostomy care provided by [facility] (patient performs less than 25% of colostomy care). BOWEL MANAGEMENT - SCORE: 1-DEP TRANSFERS: BED, CHAIR, WHEELCHAIR: Activity did not occur on this shift TRANSFERS: BED, CHAIR, WHEELCHAIR - SCORE: 0-UNK TRANSFERS: TOILET: Activity did not occur on this shift TRANSFERS: TOILET - SCORE: 0-UNK TRANSFERS: SHOWER: Activity did not occur on this shift TRANSFERS: SHOWER - SCORE: 0-UNK TRANSFERS: TUB: Activity did not occur on this shift TRANSFERS: TUB - SCORE: 0-UNK LOCOMOTION: WALK: Activity did not occur on this shift LOCOMOTION: WALK - SCORE: 0-UNK LOCOMOTION: WHEELCHAIR: Activity did not occur on this shift LOCOMOTION: WHEELCHAIR - SCORE: 0-UNK COMPREHENSION: COMPREHENSION: TYPE: Both COMPREHENSION - STEP 1: Does the patient require help from a person or device, or need extra time to understand complex and a bstract ideas (such as current events, finances, discharge planning, medical issues, relationships, e tc)? No. COMPREHENSION - STEP 2: Does the patient need extra time, require an assistive device (such as glasses for visual comprehensi on or a hearing aid for auditory comprehension) or does s/he have mild difficulty understanding compl ex and abstract information? Yes. COMPREHENSION - SCORE: 6-ELEUTERIO EXPRESSION EXPRESSION: TYPE: Both EXPRESSION - STEP 1: Does the patient require help from a person or device, or need extra time expressing complex and abst ract ideas (such as current events, finances, discharge planning, medical issues, relationships, etc) ? No. EXPRESSION - STEP 2: Does the patient need extra time, require an assistive device (such as augmentive communication syste m or a communication board), OR does s/he have mild difficulty expressing complex and abstract ideas (including mild dysarthria or mild word-find problems)? Yes. EXPRESSION - SCORE: 6-ELEUTERIO SOCIAL INTERACTION: SOCIAL INTERACTION - STEP 1: Does the patient require a helper to interact with others in social and therapeutic situations? No. SOCIAL INTERACTION - STEP 2: Does the patient need extra time in social situations, OR does s/he interact with staff, other patien ts, and family members ONLY in structured environments, OR does s/he require medication for social in teraction? Yes, patient needs extra time SOCIAL INTERACTION - SCORE: 6-ELEUTERIO PROBLEM SOLVING: PROBLEM SOLVING - STEP 1: Does the patient need help from a person or device, or need extra time to solve complex problems such as managing a checking account or confronting interpersonal problems? No. PROBLEM SOLVING - STEP 2: Does the patient require extra time to make decisions or solve problems, OR does s/he have slight dif ficulty reading, initiating, or self-correcting in unfamiliar situations? Yes, patient needs extra ti me. PROBLEM SOLVING - SCORE: 6-ELEUTERIO MEMORY: MEMORY - STEP 1: Does the patient need help from a person or device, or need extra time to remember frequently encount ered people, daily routines, and executing requests? No. MEMORY - STEP 2: Does the patient have slight difficulty recognizing frequently encountered people, daily routines, or executing requests without the need for repetition or using self-initiated or environmental cues to remember? Yes. MEMORY - SCORE: 6-ELEUTERIO
[2019-06-28] MEDS: TRAMADOL HCL 50 MG TAB PO PRN ×3 (05:14→20:50)
[2019-06-28] MEDS: HYDROCODONE/APAP 5/325 MG TAB PO PRN (06:59)
[2019-06-28] MEDS: LEVOTHYROXINE SOD 0.05 MG TABLET PO SCH (07:00)
[2019-06-28] MEDS: ENSURE HIGH PROTEIN 237 ML CAN PO SCH ×3 (07:30→16:30)
[2019-06-28] MEDS: PROMOD 30 ML DOSE PO SCH ×2 (08:00→20:00)
[2019-06-28] MEDS: ZINC SULFATE 220 MG CAP PO SCH (08:58)
[2019-06-28] MEDS: ALLOPURINOL 300 MG TAB PO SCH (08:58)
[2019-06-28] MEDS: FUROSEMIDE 20 MG TABLET PO SCH (08:58)
[2019-06-28] MEDS: ISOSORBIDE MONO SR 30 MG TAB PO SCH (08:59)
[2019-06-28] MEDS: ASPIRIN EC 81 MG TAB PO SCH (08:59)
[2019-06-28] MEDS: APIXABAN 2.5 MG TABLET PO SCH ×2 (08:59→20:50)
[2019-06-28] MEDS: ATORVASTATIN 40 MG TAB PO SCH (20:50)
[2019-06-28] MEDS: MELATONIN 5 MG TABLET PO PRN (20:51)
--- NOTE | 2019-06-29 00:56 | FAST ---
SHIFT START DATE/TIME: 06/28/2019 19:00 (CDT) SHIFT END DATE/TIME: 06/29/2019 07:00 (CDT) NAME REGGIE AMBROSE DATE OF : 1940 DATE OF ADMISSION: 06/17/2019 17:06 (CDT) PHONE: AGE: 79 N# [id number] GENDER: Male ENCOUNTER PHYSICIAN: Dr. Todd Westfall M.D. ADMISSION DIAGNOSIS: - Orthopaedic Disorders 08 - Unilateral Hip Fracture (08.11) Right Femoral Neck Fracture. EATING: Activity did not occur on this shift EATING - SCORE: 0-UNK GROOMING: Activity did not occur on this shift GROOMING - SCORE: 0-UNK BATHING: Activity did not occur on this shift BATHING - SCORE: 0-UNK DRESSING - UPPER BODY: Patient is not dressing in public clothing ARTICLES SCORE Total number of steps: 0 DRESSING - UPPER BODY - SCORE: 0-UNK DRESSING - LOWER BODY: Patient is not dressing in public clothing ARTICLES SCORE Total number of steps: 0 DRESSING - LOWER BODY - SCORE: 0-UNK TOILETING: TOILETING - STEP 1: Does the patient require the assistance of a person or device, or need extra time with toileting? Yes . TOILETING - STEP 2: Does the patient require the assistance of a helper? Yes. TOILETING - STEP 3: How much assistance does the patient require from the helper? Only supervision TOILETING - SCORE: 5-SUP BLADDER MANAGEMENT: BLADDER MANAGEMENT - STEP 1: Does the patient control the bladder completely and intentionally without equipment or devices or med ications, and is always continent? No. BLADDER MANAGEMENT - STEP 2: Does the patient require the assistance of a helper? No, patient requires and independently uses an a ssistive device, such as a urinal, bedpan, bedside commode, catheter, absorbent pad, or collecting de vice BLADDER MANAGEMENT - SCORE: 6-ELEUTERIO BOWEL MANAGEMENT: Colostomy care provided by [facility] (patient performs less than 25% of colostomy care). BOWEL MANAGEMENT - SCORE: 1-DEP TRANSFERS: BED, CHAIR, WHEELCHAIR: TRANSFERS: BED, CHAIR, WHEELCHAIR - STEP 1: Does the patient require assistance of a person or device, or need extra time with bed, chair, or whe elchair transfers? Yes. TRANSFERS: BED, CHAIR, WHEELCHAIR - STEP 2: Does the patient require the assistance of a helper? Yes. TRANSFERS: BED, CHAIR, WHEELCHAIR - STEP 3: How much assistance does the patient require from the helper? Lifting of the legs TRANSFERS: BED, CHAIR, WHEELCHAIR - STEP 4: How many legs does the patient require the helper to lift? both legs TRANSFERS: BED, CHAIR, WHEELCHAIR - SCORE: 3-MOD TRANSFERS: TOILET: Activity did not occur on this shift TRANSFERS: TOILET - SCORE: 0-UNK TRANSFERS: SHOWER: Activity did not occur on this shift TRANSFERS: SHOWER - SCORE: 0-UNK TRANSFERS: TUB: Activity did not occur on this shift TRANSFERS: TUB - SCORE: 0-UNK LOCOMOTION: WALK: Activity did not occur on this shift LOCOMOTION: WALK - SCORE: 0-UNK LOCOMOTION: WHEELCHAIR: Activity did not occur on this shift LOCOMOTION: WHEELCHAIR - SCORE: 0-UNK COMPREHENSION: COMPREHENSION: TYPE: Both COMPREHENSION - STEP 1: Does the patient require help from a person or device, or need extra time to understand complex and a bstract ideas (such as current events, finances, discharge planning, medical issues, relationships, e tc)? No. COMPREHENSION - STEP 2: Does the patient need extra time, require an assistive device (such as glasses for visual comprehensi on or a hearing aid for auditory comprehension) or does s/he have mild difficulty understanding compl ex and abstract information? Yes. COMPREHENSION - SCORE: 6-ELEUTERIO EXPRESSION EXPRESSION: TYPE: Both EXPRESSION - STEP 1: Does the patient require help from a person or device, or need extra time expressing complex and abst ract ideas (such as current events, finances, discharge planning, medical issues, relationships, etc) ? No. EXPRESSION - STEP 2: Does the patient need extra time, require an assistive device (such as augmentive communication syste m or a communication board), OR does s/he have mild difficulty expressing complex and abstract ideas (including mild dysarthria or mild word-find problems)? No. EXPRESSION - SCORE: 7-IND SOCIAL INTERACTION: SOCIAL INTERACTION - STEP 1: Does the patient require a helper to interact with others in social and therapeutic situations? No. SOCIAL INTERACTION - STEP 2: Does the patient need extra time in social situations, OR does s/he interact with staff, other patien ts, and family members ONLY in structured environments, OR does s/he require medication for social in teraction? Yes, patient needs extra time SOCIAL INTERACTION - SCORE: 6-ELEUTERIO PROBLEM SOLVING: PROBLEM SOLVING - STEP 1: Does the patient need help from a person or device, or need extra time to solve complex problems such as managing a checking account or confronting interpersonal problems? Yes. PROBLEM SOLVING - STEP 2: Does the patient solve basic routine problems half or more of the time? Yes. PROBLEM SOLVING - STEP 3: How often does the patient need help to solve basic routine problems? Less than 10% of the time PROBLEM SOLVING - SCORE: 5-SUP MEMORY: MEMORY - STEP 1: Does the patient need help from a person or device, or need extra time to remember frequently encount ered people, daily routines, and executing requests? No. MEMORY - STEP 2: Does the patient have slight difficulty recognizing frequently encountered people, daily routines, or executing requests without the need for repetition or using self-initiated or environmental cues to remember? Yes. MEMORY - SCORE: 6-ELEUTERIO SIGNATURE PANEL: The following modified sections: Eating - Score, Grooming - Score, Dressing - Upper Body - Score, Sascha ssing - Lower Body - Score, Toileting - Score, Bladder Management - Score, Bowel Management - Score, Transfers: Bed, Chair, Wheelchair - Score, Transfers: Toilet - Score, Transfers: Shower - Score, Oliveira sfers: Tub - Score, Locomotion: Walk - Score, Locomotion: Wheelchair - Score, Comprehension - Score, Expression - Score, Social Interaction - Score, Problem Solving - Score, Memory - Score were [electro nically] signed by Joyce Damon CNA on SunJun 29 2019 00:56:14 GMT-0500 (Central Daylight Time)
[2019-06-29] MEDS: LEVOTHYROXINE SOD 0.05 MG TABLET PO SCH (07:14)
[2019-06-29] MEDS: ENSURE HIGH PROTEIN 237 ML CAN PO SCH ×3 (07:30→16:30)
[2019-06-29] MEDS: ZINC SULFATE 220 MG CAP PO SCH (08:55)
[2019-06-29] MEDS: ISOSORBIDE MONO SR 30 MG TAB PO SCH (08:55)
[2019-06-29] MEDS: ASPIRIN EC 81 MG TAB PO SCH (08:56)
[2019-06-29] MEDS: FUROSEMIDE 20 MG TABLET PO SCH (08:56)
[2019-06-29] MEDS: ALLOPURINOL 300 MG TAB PO SCH (09:03)
[2019-06-29] MEDS: APIXABAN 2.5 MG TABLET PO SCH ×2 (09:03→20:56)
[2019-06-29] MEDS: PROMOD 30 ML DOSE PO SCH ×2 (09:04→20:00)
[2019-06-29] MEDS: HYDROCODONE/APAP 5/325 MG TAB PO PRN (17:24)
[2019-06-29] MEDS: ATORVASTATIN 40 MG TAB PO SCH (20:56)
[2019-06-29] MEDS: MELATONIN 5 MG TABLET PO PRN (20:57)
--- NOTE | 2019-06-30 02:58 | FAST ---
SHIFT START DATE/TIME: 06/29/2019 19:00 (CDT) SHIFT END DATE/TIME: 06/30/2019 07:00 (CDT) NAME REGGIE AMBROSE DATE OF : 1940 DATE OF ADMISSION: 06/17/2019 17:06 (CDT) PHONE: AGE: 79 N# [id number] GENDER: Male ENCOUNTER PHYSICIAN: Dr. Todd Westfall M.D. ADMISSION DIAGNOSIS: - Orthopaedic Disorders 08 - Unilateral Hip Fracture (08.11) Right Femoral Neck Fracture. EATING: Activity did not occur on this shift EATING - SCORE: 0-UNK GROOMING: Activity did not occur on this shift GROOMING - SCORE: 0-UNK BATHING: Activity did not occur on this shift BATHING - SCORE: 0-UNK DRESSING - UPPER BODY: Patient is not dressing in public clothing ARTICLES SCORE Total number of steps: 0 DRESSING - UPPER BODY - SCORE: 0-UNK DRESSING - LOWER BODY: Patient is not dressing in public clothing ARTICLES SCORE Total number of steps: 0 DRESSING - LOWER BODY - SCORE: 0-UNK TOILETING: TOILETING - STEP 1: Does the patient require the assistance of a person or device, or need extra time with toileting? Yes . TOILETING - STEP 2: Does the patient require the assistance of a helper? Yes. TOILETING - STEP 3: How much assistance does the patient require from the helper? Hands-on assistance from the helper TOILETING - STEP 4: Of the 3 tasks: 1) Adjusting clothing prior to use, 2) Cleansing of perineal area, 3) Adjusting clot barb after use; How many tasks does the patient perform WITHOUT assistance of the helper? Three tasks with steadying assistance from the helper TOILETING - SCORE: 4-MIN BLADDER MANAGEMENT: BLADDER MANAGEMENT - STEP 1: Does the patient control the bladder completely and intentionally without equipment or devices or med ications, and is always continent? No. BLADDER MANAGEMENT - STEP 2: Does the patient require the assistance of a helper? Yes. BLADDER MANAGEMENT - STEP 3: How much assistance does the patient require from the helper? Only supervision, stand-by, cuing, or c oaxing BLADDER MANAGEMENT - SCORE: 5-SUP BOWEL MANAGEMENT: BOWEL MANAGEMENT - STEP 1: Does the patient control bowels completely and intentionally without equipment devices or medications AND is always continent? No. BOWEL MANAGEMENT - STEP 2: Does the patient require the assistance of a helper? No, patient requires medication for control such as stool softeners, suppositories, laxatives, enemas, or OTC medications BOWEL MANAGEMENT - SCORE: 6-ELEUTERIO TRANSFERS: BED, CHAIR, WHEELCHAIR: Activity did not occur on this shift TRANSFERS: BED, CHAIR, WHEELCHAIR - SCORE: 0-UNK TRANSFERS: TOILET: Activity did not occur on this shift TRANSFERS: TOILET - SCORE: 0-UNK TRANSFERS: SHOWER: Activity did not occur on this shift TRANSFERS: SHOWER - SCORE: 0-UNK TRANSFERS: TUB: Activity did not occur on this shift TRANSFERS: TUB - SCORE: 0-UNK LOCOMOTION: WALK: Activity did not occur on this shift LOCOMOTION: WALK - SCORE: 0-UNK LOCOMOTION: WHEELCHAIR: Activity did not occur on this shift LOCOMOTION: WHEELCHAIR - SCORE: 0-UNK COMPREHENSION: COMPREHENSION: TYPE: Both COMPREHENSION - STEP 1: Does the patient require help from a person or device, or need extra time to understand complex and a bstract ideas (such as current events, finances, discharge planning, medical issues, relationships, e tc)? No. COMPREHENSION - STEP 2: Does the patient need extra time, require an assistive device (such as glasses for visual comprehensi on or a hearing aid for auditory comprehension) or does s/he have mild difficulty understanding compl ex and abstract information? Yes. COMPREHENSION - SCORE: 6-ELEUTERIO EXPRESSION EXPRESSION: TYPE: Both EXPRESSION - STEP 1: Does the patient require help from a person or device, or need extra time expressing complex and abst ract ideas (such as current events, finances, discharge planning, medical issues, relationships, etc) ? No. EXPRESSION - STEP 2: Does the patient need extra time, require an assistive device (such as augmentive communication syste m or a communication board), OR does s/he have mild difficulty expressing complex and abstract ideas (including mild dysarthria or mild word-find problems)? Yes. EXPRESSION - SCORE: 6-ELEUTERIO SOCIAL INTERACTION: SOCIAL INTERACTION - STEP 1: Does the patient require a helper to interact with others in social and therapeutic situations? No. SOCIAL INTERACTION - STEP 2: Does the patient need extra time in social situations, OR does s/he interact with staff, other patien ts, and family members ONLY in structured environments, OR does s/he require medication for social in teraction? Yes, patient needs extra time SOCIAL INTERACTION - SCORE: 6-ELEUTERIO PROBLEM SOLVING: PROBLEM SOLVING - STEP 1: Does the patient need help from a person or device, or need extra time to solve complex problems such as managing a checking account or confronting interpersonal problems? Yes. PROBLEM SOLVING - STEP 2: Does the patient solve basic routine problems half or more of the time? Yes. PROBLEM SOLVING - STEP 3: How often does the patient need help to solve basic routine problems? 10%-24% of the time PROBLEM SOLVING - SCORE: 4-MIN MEMORY: MEMORY - STEP 1: Does the patient need help from a person or device, or need extra time to remember frequently encount ered people, daily routines, and executing requests? No. MEMORY - STEP 2: Does the patient have slight difficulty recognizing frequently encountered people, daily routines, or executing requests without the need for repetition or using self-initiated or environmental cues to remember? Yes. MEMORY - SCORE: 6-ELEUTERIO SIGNATURE PANEL: The following modified sections: Eating - Score, Grooming - Score, Dressing - Upper Body - Score, Sascha ssing - Lower Body - Score, Toileting - Score, Bladder Management - Score, Bowel Management - Score, Transfers: Bed, Chair, Wheelchair - Score, Transfers: Toilet - Score, Transfers: Shower - Score, Oliveira sfers: Tub - Score, Locomotion: Walk - Score, Locomotion: Wheelchair - Score, Comprehension - Score, Expression - Score, Social Interaction - Score, Problem Solving - Score, Memory - Score were [electro nically] signed by Joyce Damon CNA on SunJun 30 2019 02:57:30 GMT-0500 (Central Daylight Time)
[2019-06-30] MEDS: ENSURE HIGH PROTEIN 237 ML CAN PO SCH ×3 (07:30→15:43)
[2019-06-30] MEDS: LEVOTHYROXINE SOD 0.05 MG TABLET PO SCH (07:44)
[2019-06-30] MEDS: PROMOD 30 ML DOSE PO SCH ×2 (08:00→20:06)
[2019-06-30] MEDS: FUROSEMIDE 20 MG TABLET PO SCH (08:00)
[2019-06-30] MEDS: ISOSORBIDE MONO SR 30 MG TAB PO SCH (08:00)
[2019-06-30] MEDS: ZINC SULFATE 220 MG CAP PO SCH (09:04)
[2019-06-30] MEDS: TRAMADOL HCL 50 MG TAB PO PRN ×2 (09:05→20:05)
[2019-06-30] MEDS: APIXABAN 2.5 MG TABLET PO SCH ×2 (09:06→20:00)
[2019-06-30] MEDS: ALLOPURINOL 300 MG TAB PO SCH (09:06)
[2019-06-30] MEDS: ASPIRIN EC 81 MG TAB PO SCH (09:06)
[2019-06-30] MEDS ORDERED: ALBUMIN HUMAN 25% 100 ML IV ONE (13:45)
--- NOTE | 2019-06-30 14:30 | FAST ---
SHIFT START DATE/TIME: 06/30/2019 07:00 (CDT) SHIFT END DATE/TIME: 06/30/2019 19:00 (CDT) NAME REGGIE AMBROSE DATE OF : 1940 DATE OF ADMISSION: 06/17/2019 17:06 (CDT) PHONE: AGE: 79 N# [id number] GENDER: Male ENCOUNTER PHYSICIAN: Dr. Todd Westfall M.D. ADMISSION DIAGNOSIS: - Orthopaedic Disorders 08 - Unilateral Hip Fracture (08.11) Right Femoral Neck Fracture. EATING: EATING - STEP 1: Does the patient require the assistance of a person or device, or need extra time when eating? Yes. EATING - STEP 2: Does the patient require the assistance of a helper? No, patient only requires an assistive device, O R s/he takes more than reasonable time to eat, OR there is a safety concern, OR s/he requires modifie d food consistency EATING - SCORE: 6-ELEUTERIO GROOMING: Comb/brush hair Oral care GROOMING - STEP 1: Does the patient require the assistance of a person or device, or need extra time when grooming? Yes. GROOMING - STEP 2: Does the patient require the assistance of a helper? No. The patient only requires an assistive devic e, OR takes more than reasonable time to groom, OR there is a concern for safety as the patient groom s GROOMING - SCORE: 6-ELEUTERIO BATHING: Activity did not occur on this shift BATHING - SCORE: 0-UNK DRESSING - UPPER BODY: Activity did not occur on this shift ARTICLES SCORE Total number of steps: 0 DRESSING - UPPER BODY - SCORE: 0-UNK DRESSING - LOWER BODY: Activity did not occur on this shift ARTICLES SCORE Total number of steps: 0 DRESSING - LOWER BODY - SCORE: 0-UNK TOILETING: TOILETING - STEP 1: Does the patient require the assistance of a person or device, or need extra time with toileting? Yes . TOILETING - STEP 2: Does the patient require the assistance of a helper? Yes. TOILETING - STEP 3: How much assistance does the patient require from the helper? Hands-on assistance from the helper TOILETING - STEP 4: Of the 3 tasks: 1) Adjusting clothing prior to use, 2) Cleansing of perineal area, 3) Adjusting clot barb after use; How many tasks does the patient perform WITHOUT assistance of the helper? Two tasks TOILETING - SCORE: 3-MOD BLADDER MANAGEMENT: BLADDER MANAGEMENT - STEP 1: Does the patient control the bladder completely and intentionally without equipment or devices or med ications, and is always continent? No. BLADDER MANAGEMENT - STEP 2: Does the patient require the assistance of a helper? No, patient requires and independently uses an a ssistive device, such as a urinal, bedpan, bedside commode, catheter, absorbent pad, or collecting de vice BLADDER MANAGEMENT - SCORE: 6-ELEUTERIO BOWEL MANAGEMENT: Activity did not occur on this shift BOWEL MANAGEMENT - SCORE: 7-IND TRANSFERS: BED, CHAIR, WHEELCHAIR: TRANSFERS: BED, CHAIR, WHEELCHAIR - STEP 1: Does the patient require assistance of a person or device, or need extra time with bed, chair, or whe elchair transfers? Yes. TRANSFERS: BED, CHAIR, WHEELCHAIR - STEP 2: Does the patient require the assistance of a helper? Yes. TRANSFERS: BED, CHAIR, WHEELCHAIR - STEP 3: How much assistance does the patient require from the helper? Steadying/guiding assistance TRANSFERS: BED, CHAIR, WHEELCHAIR - SCORE: 4-MIN TRANSFERS: TOILET: TRANSFERS: TOILET - STEP 1: Does the patient require the assistance of a person or device, or need extra time with toilet transfe rs? Yes. TRANSFERS: TOILET - STEP 2: Does the patient require the assistance of a helper? Yes. TRANSFERS: TOILET - STEP 3: How much assistance does the patient require from the helper? Patient performs half or more of the tr ansferring tasks TRANSFERS: TOILET - STEP 4: Does the patient need only incidental help such as contact guard or steadying during toilet transfer? No. Patient needs more than incidental help TRANSFERS: TOILET - SCORE: 3-MOD TRANSFERS: SHOWER: Activity did not occur on this shift TRANSFERS: SHOWER - SCORE: 0-UNK TRANSFERS: TUB: Activity did not occur on this shift TRANSFERS: TUB - SCORE: 0-UNK LOCOMOTION: WALK: Activity did not occur on this shift LOCOMOTION: WALK - SCORE: 0-UNK LOCOMOTION: WHEELCHAIR: Activity did not occur on this shift LOCOMOTION: WHEELCHAIR - SCORE: 0-UNK COMPREHENSION: COMPREHENSION: TYPE: Both COMPREHENSION - STEP 1: Does the patient require help from a person or device, or need extra time to understand complex and a bstract ideas (such as current events, finances, discharge planning, medical issues, relationships, e tc)? No. COMPREHENSION - STEP 2: Does the patient need extra time, require an assistive device (such as glasses for visual comprehensi on or a hearing aid for auditory comprehension) or does s/he have mild difficulty understanding compl ex and abstract information? Yes. COMPREHENSION - SCORE: 6-ELEUTERIO EXPRESSION EXPRESSION: TYPE: Both EXPRESSION - STEP 1: Does the patient require help from a person or device, or need extra time expressing complex and abst ract ideas (such as current events, finances, discharge planning, medical issues, relationships, etc) ? No. EXPRESSION - STEP 2: Does the patient need extra time, require an assistive device (such as augmentive communication syste m or a communication board), OR does s/he have mild difficulty expressing complex and abstract ideas (including mild dysarthria or mild word-find problems)? Yes. EXPRESSION - SCORE: 6-ELEUTERIO SOCIAL INTERACTION: SOCIAL INTERACTION - STEP 1: Does the patient require a helper to interact with others in social and therapeutic situations? No. SOCIAL INTERACTION - STEP 2: Does the patient need extra time in social situations, OR does s/he interact with staff, other patien ts, and family members ONLY in structured environments, OR does s/he require medication for social in teraction? Yes, patient needs extra time SOCIAL INTERACTION - SCORE: 6-ELEUTERIO PROBLEM SOLVING: PROBLEM SOLVING - STEP 1: Does the patient need help from a person or device, or need extra time to solve complex problems such as managing a checking account or confronting interpersonal problems? No. PROBLEM SOLVING - STEP 2: Does the patient require extra time to make decisions or solve problems, OR does s/he have slight dif ficulty reading, initiating, or self-correcting in unfamiliar situations? Yes, patient needs extra ti me. PROBLEM SOLVING - SCORE: 6-ELEUTERIO MEMORY: MEMORY - STEP 1: Does the patient need help from a person or device, or need extra time to remember frequently encount ered people, daily routines, and executing requests? No. MEMORY - STEP 2: Does the patient have slight difficulty recognizing frequently encountered people, daily routines, or executing requests without the need for repetition or using self-initiated or environmental cues to remember? Yes. MEMORY - SCORE: 6-ELEUTERIO SIGNATURE PANEL: The following modified sections: Eating - Score, Grooming - Score, Bathing - Score, Dressing - Upper Body - Score, Dressing - Lower Body - Score, Toileting - Score, Bladder Management - Score, Bowel Man agement - Score, Transfers: Bed, Chair, Wheelchair - Score, Transfers: Toilet - Score, Transfers: Crystal wer - Score, Transfers: Tub - Score, Locomotion: Walk - Score, Locomotion: Wheelchair - Score, Compre hension - Score, Expression - Score, Social Interaction - Score, Problem Solving - Score, Memory - Sc ore were [electronically] signed by Rai Pate on SunJun 30 2019 14:29:08 GMT-0500 (Central Daylight Time)
--- NOTE | 2019-06-30 15:30 | FAST ---
ENCOUNTER DATE AND TIME: 06/30/2019 08:00 (CDT) NAME REGGIE AMBROSE DATE OF : 1940 DATE OF ADMISSION: 06/17/2019 17:06 (CDT) PHONE: AGE: 79 SSN# [id number] GENDER: Male ENCOUNTER PHYSICIAN: Dr. Todd Westfall M.D. ADMISSION DIAGNOSIS: - Orthopaedic Disorders 08 - Unilateral Hip Fracture (08.11) Right Femoral Neck Fracture. EATING: Activity did not occur on this shift EATING - SCORE: 0-UNK GROOMING: Activity did not occur on this shift GROOMING - SCORE: 0-UNK BATHING: Activity did not occur on this shift BATHING - SCORE: 0-UNK DRESSING - UPPER BODY: Activity did not occur on this shift Patient is not dressing in public clothing ARTICLES SCORE Total number of steps: 0 DRESSING - UPPER BODY - SCORE: 0-UNK DRESSING - LOWER BODY: Activity did not occur on this shift Patient is not dressing in public clothing ARTICLES SCORE Total number of steps: 0 DRESSING - LOWER BODY - SCORE: 0-UNK TOILETING: Activity did not occur on this shift TOILETING - SCORE: 0-UNK BLADDER MANAGEMENT: Activity did not occur on this shift BLADDER MANAGEMENT - SCORE: 7-IND BOWEL MANAGEMENT: Activity did not occur on this shift BOWEL MANAGEMENT - SCORE: 7-IND TRANSFERS: BED, CHAIR, WHEELCHAIR: TRANSFERS: BED, CHAIR, WHEELCHAIR - STEP 1: Does the patient require assistance of a person or device, or need extra time with bed, chair, or whe elchair transfers? Yes. TRANSFERS: BED, CHAIR, WHEELCHAIR - STEP 2: Does the patient require the assistance of a helper? Yes. TRANSFERS: BED, CHAIR, WHEELCHAIR - STEP 3: How much assistance does the patient require from the helper? Only supervision TRANSFERS: BED, CHAIR, WHEELCHAIR - SCORE: 5-SUP TRANSFERS: TOILET: Activity did not occur on this shift TRANSFERS: TOILET - SCORE: 0-UNK TRANSFERS: SHOWER: Activity did not occur on this shift TRANSFERS: SHOWER - SCORE: 0-UNK TRANSFERS: TUB: Activity did not occur on this shift TRANSFERS: TUB - SCORE: 0-UNK LOCOMOTION: WALK: LOCOMOTION: WALK - STEP 1: Does the patient need help from a person or device, or need extra time to walk 150 feet? Yes. LOCOMOTION: WALK - STEP 2: How much assistance does the patient require to walk a minimum of 150 feet? Only supervision, cuing, or coaxing LOCOMOTION: WALK - SCORE: 5-SUP LOCOMOTION: WHEELCHAIR: Activity did not occur on this shift LOCOMOTION: WHEELCHAIR - SCORE: 0-UNK LOCOMOTION: STAIRS: LOCOMOTION: STAIRS - STEP 1: Does the patient need help to go up and down 12 to 14 stairs? Yes. LOCOMOTION: STAIRS - STEP 2: How much assistance does the patient need from the helper to go a minimum of 12 to 14 stairs? Only in cidental help such as contact guarding or steadying LOCOMOTION: STAIRS - SCORE: 4-MIN COMPREHENSION: COMPREHENSION - SCORE: 0-UNK EXPRESSION EXPRESSION - SCORE: 0-UNK SOCIAL INTERACTION: SOCIAL INTERACTION - SCORE: 0-UNK PROBLEM SOLVING: PROBLEM SOLVING - SCORE: 0-UNK MEMORY: MEMORY - SCORE: 0-UNK SIGNATURE PANEL: The following modified sections: Transfers: Bed, Chair, Wheelchair - Score, Transfers: Toilet - Score , Locomotion: Walk - Score, Locomotion: Wheelchair - Score, Locomotion: Stairs - Score were [electron luci] signed by Ayan Flowers PT on SunJun 30 2019 15:30:11 GMT-0500 (Central Daylight Time)
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
--- NOTE | 2019-06-30 18:46 | R.PN ---
ENCOUNTER DATE AND TIME: 06/30/2019 18:42 (CDT) NAME REGGIE AMBROSE DATE OF : 1940 DATE OF ADMISSION: 06/17/2019 17:06 (CDT) Right Femoral Neck FractureCHIEF COMPLAINT: Right femoral neck fracture SUBJECTIVE: Pt denied any depression. Pt denied any Shortness of Breath. Ambulated 250' with standby assistance using a rolling walker. Up and down 15 steps with contact guar d assistance using bilateral handrails. VITAL SIGNS Temperature: 97.2 F SBP/DBP: 97/62 Pulse: 76 Resp: 14 MEDICATION ALLERGIES: No Known Drug Allergies (NKDA) ENVIRONMENTAL ALLERGIES: None Known - Substance Allergies None Known - Other Allergies None Known NURSING: - Shower allowing shower - Skin care per protocol PRECAUTIONS: - Posterior Hip Precaution No adduction across midline No external rotation No hip flexion >90 degrees No internal rotation No wheel chair propulsion - Weight Bearing Precaution WBAT right LE ACTIVITIES OOB only with supervision THERAPIES: - Dietary and Nutrition Adequate Nutrition. Nutritional Education. Nutritional Supplements. PHYSICAL EXAM - Gen Alert and awake Lying in bed No apparent distress Oriented to: person, time, and place - Skin No breakdown No abnormalities - Eyes No abnormalities - ENMT No abnormalities - Neck No abnormalities - CVS RRR - Chest No abnormalities - Abd Soft - GI Non distended Deferred - No abnormalities - Ext Right hip surgical site has good hemostasis. - MSK 4+/5 weakness in right lower extremity - Neuro 4/5 strength right lower extremity. - Psych No abnormalities ASSESSMENT: Pt. is a 79 yo Right-handed white male.On 06/10/2019 he was admitted to [facility] with diagnosis Right Femoral Neck Fracture.His impairment category is Orthopaedic Disorders 08 - Unilateral Hip Fracture (08.11).Pre-morbidly, Pt. was independent/mod-I in Self-Care, Sphincter Cont rol, Transfers Control, Locomotion, Communication, and Social Cognition; and he had good Sphincter Co ntrol.Currently, he has deficits of Self-Care, Transfers Control, Locomotion, Endurance, Balance, and Safety Awareness.Pt. is now referred to [facility] for acute in-patient rehab ilitation in order to maximize patient's functional independence in activities of daily living, stren gth, ROM, and mobility.- Rehab Goal Patient has realistic goal of being discharged at assistance level 6-Kaitlin to reside at Home with Fam josé miguel/Relatives. MDM/PLAN: - Physical Therapy Decreased range of motion - to improve, our physical therapists will perform initial evaluation of p t's status upon admission and devise an individualized program for increasing patient's Range of John on. Gait dysfunction - to improve, our physical therapists will perform initial evaluation of pt's statu s upon admission and devise an individualized program for Gait Training, and Wheel Chair mobility Inability to transfer - to improve, our physical therapists will perform initial evaluation of pt's status upon admission and devise an individualized program for Bed mobility Need for home safety evaluation - to improve, our physical therapists will perform initial evaluatio n of pt's status upon admission and devise an individualized program for Home Evaluation Need in caregiver upon discharge - to improve, our physical therapists will perform initial evaluati on of pt's status upon admission and devise an individualized program for Caregiver Training New precaution - to improve, our physical therapists will perform initial evaluation of pt's status upon admission and devise an individualized program for Patient precaution education Poor balance - to improve, our physical therapists will perform initial evaluation of pt's status up on admission and devise an individualized program for Balance Training Poor endurance - to improve, our physical therapists will perform initial evaluation of pt's status upon admission and devise an individualized program for Endurance Training Weakness - to improve, our physical therapists will perform initial evaluation of pt's status upon a dmission and devise an individualized program for Aquatic Therapy, Neuromuscular Reeducation, and Str engthening Achieving independence - to improve, our physical therapists will perform initial evaluation of pt's status upon admission and devise an individualized program for Community Reintegration Activities - Occupational Therapy ADL deficits - to improve, our occupation therapists will perform initial evaluation of pt's status upon admission and devise an individualized program for Bathing, Bed mobility, Community Reintegratio n, Cooking, Dressing, Eating, Fine Motor Skills, Grooming, Homemaking, Kitchen Mobility, Laundry, Pat ient Education, Safety Awareness, Splinting - Positioning, Transfers(Toilet, Tub, Shower), and Wheel Chair Management Need for college and career counselor - to improve, our occupation therapists will perform initial evaluation of pt's status upon admission and devise an individualized program for Caregiver Training Weakness - to improve, our occupation therapists will perform initial evaluation of pt's status upon admission and devise an individualized program for Aquatic Therapy, Balance, Endurance, UE ROM, and UE strengthening - Other See attached MAR (Medication Administration Record) Irving Ambrose.pdf See attached MAR (Medication Administration Record) - Anterior Hip Precaution No abduction No active extension No adduction across midline No external rotation No hip flexion >90 degrees No internal rotation - Diet - Liquid Texture Continue Regular - Tube Feed Continue N/A - Diet Type Continue Regular - Posterior Hip Precaution No adduction across midline No external rotation No hip flexion >90 degrees No internal rotation No wheel chair propulsion - Weight Bearing Precaution NWB right LE WBAT right LE - Skin care per protocol - Diet - Solid Texture Continue Regular - Shower allowing shower FUNCTIONAL STATUS: UPDATED AT WEEKLY TEAM CONFERENCE - Bladder Same accident frequency: 7-Ind - No accidents in the past 7 days - Bowel Same accident frequency: 7-Ind - No accidents in the past 7 days - Walking Same score based on distance walked: 2(50-149ft) - Wheelchair Same score based on distance traveled: 0(N/A) FUNCTIONAL STATUS: - Self-Care A. Eating sup B. Grooming sup C. Bathing sup D. Dressing - Upper sup E. Dressing - Lower modA F. Toileting modA - Sphincter Control G: Bladder control Ind H: Bowel control Ind - Transfers Control I. Bed/Chair/Wheelchair modA J. Toilet modA K. Tub/Shower ADNO - Locomotion L. Walk/Wheelchair (C) CGA L. Walk/Wheelchair (W) CGA M. Stairs ADNO - Communication N. Comprehension (B) Ind O. Expression (B) Ind - Social Cognition P. Social Interaction Ind Q. Problem Solving Ind R. Memory Ind - Endurance Fair - Balance Fair - Safety Awareness Fair CURRENT FUNC. DEFICITS: Self-Care, Transfers Control, Locomotion, Endurance, Balance, and Safety Awareness SIGNATURE PANEL: (CDT)
[2019-06-30] MEDS: ATORVASTATIN 40 MG TAB PO SCH (20:00)
--- NOTE | 2019-07-01 02:44 | FAST ---
SHIFT START DATE/TIME: 06/30/2019 19:00 (CDT) SHIFT END DATE/TIME: 07/01/2019 07:00 (CDT) NAME REGGIE AMBROSE DATE OF : 1940 DATE OF ADMISSION: 06/17/2019 17:06 (CDT) PHONE: AGE: 79 N# [id number] GENDER: Male ENCOUNTER PHYSICIAN: Dr. Todd Westfall M.D. ADMISSION DIAGNOSIS: - Orthopaedic Disorders 08 - Unilateral Hip Fracture (08.11) Right Femoral Neck Fracture. EATING: Activity did not occur on this shift EATING - SCORE: 0-UNK GROOMING: Oral care Wash, rinse, and dry face Wash, rinse, and dry hands GROOMING - STEP 1: Does the patient require the assistance of a person or device, or need extra time when grooming? Yes. GROOMING - STEP 2: Does the patient require the assistance of a helper? Yes. GROOMING - STEP 3: How much assistance does the patient require from the helper? Cuing, coaxing, instructions, or encour agement for completion of grooming GROOMING - SCORE: 5-SUP BATHING: Activity did not occur on this shift BATHING - SCORE: 0-UNK DRESSING - UPPER BODY: Patient is not dressing in public clothing ARTICLES SCORE Total number of steps: 0 DRESSING - UPPER BODY - SCORE: 0-UNK DRESSING - LOWER BODY: Patient is not dressing in public clothing ARTICLES SCORE Total number of steps: 0 DRESSING - LOWER BODY - SCORE: 0-UNK TOILETING: TOILETING - STEP 1: Does the patient require the assistance of a person or device, or need extra time with toileting? Yes . TOILETING - STEP 2: Does the patient require the assistance of a helper? Yes. TOILETING - STEP 3: How much assistance does the patient require from the helper? Only supervision TOILETING - SCORE: 5-SUP BLADDER MANAGEMENT: BLADDER MANAGEMENT - STEP 1: Does the patient control the bladder completely and intentionally without equipment or devices or med ications, and is always continent? No. BLADDER MANAGEMENT - STEP 2: Does the patient require the assistance of a helper? Yes. BLADDER MANAGEMENT - STEP 3: How much assistance does the patient require from the helper? Only set-up of equipment - such as plac ing it within reach of the patient or emptying a device - to maintain either satisfactory voiding pat tern or managing an external device, such as an absorbent pad, ileal device, or catheter BLADDER MANAGEMENT - SCORE: 5-SUP BOWEL MANAGEMENT: Colostomy care provided by [facility] (patient performs less than 25% of colostomy care). BOWEL MANAGEMENT - SCORE: 1-DEP TRANSFERS: BED, CHAIR, WHEELCHAIR: Activity did not occur on this shift TRANSFERS: BED, CHAIR, WHEELCHAIR - SCORE: 0-UNK TRANSFERS: TOILET: Activity did not occur on this shift TRANSFERS: TOILET - SCORE: 0-UNK TRANSFERS: SHOWER: Activity did not occur on this shift TRANSFERS: SHOWER - SCORE: 0-UNK TRANSFERS: TUB: Activity did not occur on this shift TRANSFERS: TUB - SCORE: 0-UNK LOCOMOTION: WALK: Activity did not occur on this shift LOCOMOTION: WALK - SCORE: 0-UNK LOCOMOTION: WHEELCHAIR: Activity did not occur on this shift LOCOMOTION: WHEELCHAIR - SCORE: 0-UNK COMPREHENSION: COMPREHENSION: TYPE: Both COMPREHENSION - STEP 1: Does the patient require help from a person or device, or need extra time to understand complex and a bstract ideas (such as current events, finances, discharge planning, medical issues, relationships, e tc)? No. COMPREHENSION - STEP 2: Does the patient need extra time, require an assistive device (such as glasses for visual comprehensi on or a hearing aid for auditory comprehension) or does s/he have mild difficulty understanding compl ex and abstract information? Yes. COMPREHENSION - SCORE: 6-ELEUTERIO EXPRESSION EXPRESSION: TYPE: Both EXPRESSION - STEP 1: Does the patient require help from a person or device, or need extra time expressing complex and abst ract ideas (such as current events, finances, discharge planning, medical issues, relationships, etc) ? No. EXPRESSION - STEP 2: Does the patient need extra time, require an assistive device (such as augmentive communication syste m or a communication board), OR does s/he have mild difficulty expressing complex and abstract ideas (including mild dysarthria or mild word-find problems)? Yes. EXPRESSION - SCORE: 6-ELEUTERIO SOCIAL INTERACTION: SOCIAL INTERACTION - STEP 1: Does the patient require a helper to interact with others in social and therapeutic situations? No. SOCIAL INTERACTION - STEP 2: Does the patient need extra time in social situations, OR does s/he interact with staff, other patien ts, and family members ONLY in structured environments, OR does s/he require medication for social in teraction? Yes, patient needs extra time SOCIAL INTERACTION - SCORE: 6-ELEUTERIO PROBLEM SOLVING: PROBLEM SOLVING - STEP 1: Does the patient need help from a person or device, or need extra time to solve complex problems such as managing a checking account or confronting interpersonal problems? No. PROBLEM SOLVING - STEP 2: Does the patient require extra time to make decisions or solve problems, OR does s/he have slight dif ficulty reading, initiating, or self-correcting in unfamiliar situations? Yes, patient needs extra ti me. PROBLEM SOLVING - SCORE: 6-ELEUTERIO MEMORY: MEMORY - STEP 1: Does the patient need help from a person or device, or need extra time to remember frequently encount ered people, daily routines, and executing requests? No. MEMORY - STEP 2: Does the patient have slight difficulty recognizing frequently encountered people, daily routines, or executing requests without the need for repetition or using self-initiated or environmental cues to remember? Yes. MEMORY - SCORE: 6-ELEUTERIO
[2019-07-01] MEDS: HYDROCODONE/APAP 5/325 MG TAB PO PRN (06:44)
[2019-07-01] MEDS: LEVOTHYROXINE SOD 0.05 MG TABLET PO SCH (06:45)
[2019-07-01] MEDS: ENSURE HIGH PROTEIN 237 ML CAN PO SCH ×3 (07:30→16:30)
[2019-07-01] MEDS: PROMOD 30 ML DOSE PO SCH ×2 (08:00→20:00)
[2019-07-01] MEDS: FUROSEMIDE 20 MG TABLET PO SCH (08:34)
[2019-07-01] MEDS: ZINC SULFATE 220 MG CAP PO SCH (08:34)
[2019-07-01] MEDS: ALLOPURINOL 300 MG TAB PO SCH (08:34)
[2019-07-01] MEDS: ISOSORBIDE MONO SR 30 MG TAB PO SCH (08:35)
[2019-07-01] MEDS: ASPIRIN EC 81 MG TAB PO SCH (08:35)
[2019-07-01] MEDS: APIXABAN 2.5 MG TABLET PO SCH ×2 (08:35→20:11)
--- NOTE | 2019-07-01 12:12 | FAST ---
ENCOUNTER DATE AND TIME: 06/30/2019 08:00 (CDT) NAME REGGIE AMBROSE DATE OF : 1940 DATE OF ADMISSION: 06/17/2019 17:06 (CDT) PHONE: AGE: 79 N# [id number] GENDER: Male ENCOUNTER PHYSICIAN: Dr. Todd Westfall M.D. ADMISSION DIAGNOSIS: - Orthopaedic Disorders 08 - Unilateral Hip Fracture (08.11) Right Femoral Neck Fracture. EATING: Activity did not occur on this shift EATING - SCORE: 0-UNK GROOMING: Comb/brush hair Oral care Wash, rinse, and dry face Wash, rinse, and dry hands GROOMING - STEP 1: Does the patient require the assistance of a person or device, or need extra time when grooming? No. GROOMING - SCORE: 7-IND BATHING: Abdomen Buttocks Chest Left arm Left lower leg and foot Left upper leg Perineal area Right arm Right lower leg and foot Right upper leg BATHING - STEP 1: Does the patient require the assistance of a person or device, or need extra time when bathing? Yes. BATHING - STEP 2: Does the patient require the assistance of a helper? Yes. BATHING - STEP 3: How much assistance does the patient require from the helper? Only incidental help such as placement of a wash cloth in his/her hand a few times as s/he bathes OR help to bathe just one or two areas of the body BATHING - SCORE: 4-MIN DRESSING - UPPER BODY: Patient is not dressing in public clothing ARTICLES SCORE Total number of steps: 0 DRESSING - UPPER BODY - SCORE: 0-UNK DRESSING - LOWER BODY: Sock - Left foot (one step) Sock - Right foot (one step) Underwear (three steps) ARTICLES SCORE Total number of steps: 5 DRESSING - LOWER BODY - STEP 1: Does the patient require help from a person or device, or need extra time when dressing below the shawna st? Yes. DRESSING - LOWER BODY - STEP 2: Does the patient require the assistance of a helper? Yes. DRESSING - LOWER BODY - STEP 3: Does the helper touch the patient while dressing? Yes. DRESSING - LOWER BODY - STEP 4: How many of the total steps does the patient complete on his/her own? 0 DRESSING - LOWER BODY - STEP 5: Does patient require total assistance for dressing below the waist such as the helper holding clothin g and performing basically all the activities? No. DRESSING - LOWER BODY - SCORE: 2-MAX TOILETING: Activity did not occur on this shift TOILETING - SCORE: 0-UNK BLADDER MANAGEMENT: Activity did not occur on this shift BLADDER MANAGEMENT - SCORE: 7-IND BOWEL MANAGEMENT: Activity did not occur on this shift BOWEL MANAGEMENT - SCORE: 7-IND TRANSFERS: BED, CHAIR, WHEELCHAIR: Activity did not occur on this shift TRANSFERS: BED, CHAIR, WHEELCHAIR - SCORE: 0-UNK TRANSFERS: TOILET: Activity did not occur on this shift TRANSFERS: TOILET - SCORE: 0-UNK TRANSFERS: SHOWER: Activity did not occur on this shift TRANSFERS: SHOWER - SCORE: 0-UNK TRANSFERS: TUB: TRANSFERS: TUB - STEP 1: Does the patient require the assistance of a person or device, or need extra time with tub transfers? Yes. TRANSFERS: TUB - STEP 2: Does the patient require the assistance of a helper? Yes. TRANSFERS: TUB - STEP 3: How much assistance does the patient require from the helper? Only supervision, cuing, coaxing, or he lp to set out transfer equipment or to lock brakes and/or lift foot rests TRANSFERS: TUB - SCORE: 5-SUP LOCOMOTION: WALK: Activity did not occur on this shift LOCOMOTION: WALK - SCORE: 0-UNK LOCOMOTION: WHEELCHAIR: Activity did not occur on this shift LOCOMOTION: WHEELCHAIR - SCORE: 0-UNK LOCOMOTION: STAIRS: Activity did not occur on this shift LOCOMOTION: STAIRS - SCORE: 0-UNK COMPREHENSION: COMPREHENSION: TYPE: Both COMPREHENSION - STEP 1: Does the patient require help from a person or device, or need extra time to understand complex and a bstract ideas (such as current events, finances, discharge planning, medical issues, relationships, e tc)? No. COMPREHENSION - STEP 2: Does the patient need extra time, require an assistive device (such as glasses for visual comprehensi on or a hearing aid for auditory comprehension) or does s/he have mild difficulty understanding compl ex and abstract information? No. COMPREHENSION - SCORE: 7-IND EXPRESSION EXPRESSION: TYPE: Both EXPRESSION - STEP 1: Does the patient require help from a person or device, or need extra time expressing complex and abst ract ideas (such as current events, finances, discharge planning, medical issues, relationships, etc) ? No. EXPRESSION - STEP 2: Does the patient need extra time, require an assistive device (such as augmentive communication syste m or a communication board), OR does s/he have mild difficulty expressing complex and abstract ideas (including mild dysarthria or mild word-find problems)? No. EXPRESSION - SCORE: 7-IND SOCIAL INTERACTION: SOCIAL INTERACTION - STEP 1: Does the patient require a helper to interact with others in social and therapeutic situations? No. SOCIAL INTERACTION - STEP 2: Does the patient need extra time in social situations, OR does s/he interact with staff, other patien ts, and family members ONLY in structured environments, OR does s/he require medication for social in teraction? No. SOCIAL INTERACTION - SCORE: 7-IND PROBLEM SOLVING: PROBLEM SOLVING - STEP 1: Does the patient need help from a person or device, or need extra time to solve complex problems such as managing a checking account or confronting interpersonal problems? No. PROBLEM SOLVING - STEP 2: Does the patient require extra time to make decisions or solve problems, OR does s/he have slight dif ficulty reading, initiating, or self-correcting in unfamiliar situations? No. PROBLEM SOLVING - SCORE: 7-IND MEMORY: MEMORY - STEP 1: Does the patient need help from a person or device, or need extra time to remember frequently encount ered people, daily routines, and executing requests? No. MEMORY - STEP 2: Does the patient have slight difficulty recognizing frequently encountered people, daily routines, or executing requests without the need for repetition or using self-initiated or environmental cues to remember? No. MEMORY - SCORE: 7-IND SIGNATURE PANEL: The following modified sections: Eating - Score, Grooming - Score, Bathing - Score, Dressing - Upper Body - Score, Dressing - Lower Body - Score, Toileting - Score, Transfers: Bed, Chair, Wheelchair - S core, Transfers: Toilet - Score, Transfers: Tub - Score, Transfers: Shower - Score, Comprehension - S core, Expression - Score, Social Interaction - Score, Problem Solving - Score, Memory - Score were [e lectronically] signed by Brenda Woodard OT on SunJul 01 2019 12:11:36 T-0500 ([facility])
[2019-07-01] MEDS: TRAMADOL HCL 50 MG TAB PO PRN (12:44)
--- NOTE | 2019-07-01 13:18 | FAST ---
SHIFT START DATE/TIME: 07/01/2019 07:00 (CDT) SHIFT END DATE/TIME: 07/01/2019 19:00 (CDT) NAME REGGIE AMBROSE DATE OF : 1940 DATE OF ADMISSION: 06/17/2019 17:06 (CDT) PHONE: AGE: 79 N# [id number] GENDER: Male ENCOUNTER PHYSICIAN: Dr. Todd Westfall M.D. ADMISSION DIAGNOSIS: - Orthopaedic Disorders 08 - Unilateral Hip Fracture (08.11) Right Femoral Neck Fracture. EATING: EATING - STEP 1: Does the patient require the assistance of a person or device, or need extra time when eating? Yes. EATING - STEP 2: Does the patient require the assistance of a helper? Yes. EATING - STEP 3: Does the patient perform half or more of the eating tasks? Yes. EATING - STEP 4: Does the patient need only supervision, cuing, coaxing OR help to apply an orthosis OR help to cut fo od, open containers, pour liquids, or butter bread? Yes. EATING - SCORE: 5-SUP GROOMING: Activity did not occur on this shift GROOMING - SCORE: 0-UNK BATHING: Activity did not occur on this shift BATHING - SCORE: 0-UNK DRESSING - UPPER BODY: Activity did not occur on this shift ARTICLES SCORE Total number of steps: 0 DRESSING - UPPER BODY - SCORE: 0-UNK DRESSING - LOWER BODY: Activity did not occur on this shift ARTICLES SCORE Total number of steps: 0 DRESSING - LOWER BODY - SCORE: 0-UNK TOILETING: TOILETING - STEP 1: Does the patient require the assistance of a person or device, or need extra time with toileting? Yes . TOILETING - STEP 2: Does the patient require the assistance of a helper? Yes. TOILETING - STEP 3: How much assistance does the patient require from the helper? Hands-on assistance from the helper TOILETING - STEP 4: Of the 3 tasks: 1) Adjusting clothing prior to use, 2) Cleansing of perineal area, 3) Adjusting clot barb after use; How many tasks does the patient perform WITHOUT assistance of the helper? Two tasks TOILETING - SCORE: 3-MOD BLADDER MANAGEMENT: BLADDER MANAGEMENT - STEP 1: Does the patient control the bladder completely and intentionally without equipment or devices or med ications, and is always continent? No. BLADDER MANAGEMENT - STEP 2: Does the patient require the assistance of a helper? No, patient requires and independently uses an a ssistive device, such as a urinal, bedpan, bedside commode, catheter, absorbent pad, or collecting de vice BLADDER MANAGEMENT - SCORE: 6-ELEUTERIO BOWEL MANAGEMENT: Activity did not occur on this shift BOWEL MANAGEMENT - SCORE: 7-IND TRANSFERS: BED, CHAIR, WHEELCHAIR: TRANSFERS: BED, CHAIR, WHEELCHAIR - STEP 1: Does the patient require assistance of a person or device, or need extra time with bed, chair, or whe elchair transfers? Yes. TRANSFERS: BED, CHAIR, WHEELCHAIR - STEP 2: Does the patient require the assistance of a helper? Yes. TRANSFERS: BED, CHAIR, WHEELCHAIR - STEP 3: How much assistance does the patient require from the helper? Steadying/guiding assistance TRANSFERS: BED, CHAIR, WHEELCHAIR - SCORE: 4-MIN TRANSFERS: TOILET: TRANSFERS: TOILET - STEP 1: Does the patient require the assistance of a person or device, or need extra time with toilet transfe rs? Yes. TRANSFERS: TOILET - STEP 2: Does the patient require the assistance of a helper? Yes. TRANSFERS: TOILET - STEP 3: How much assistance does the patient require from the helper? Patient performs half or more of the tr ansferring tasks TRANSFERS: TOILET - STEP 4: Does the patient need only incidental help such as contact guard or steadying during toilet transfer? Yes. TRANSFERS: TOILET - SCORE: 4-MIN TRANSFERS: SHOWER: Activity did not occur on this shift TRANSFERS: SHOWER - SCORE: 0-UNK TRANSFERS: TUB: Activity did not occur on this shift TRANSFERS: TUB - SCORE: 0-UNK LOCOMOTION: WALK: Activity did not occur on this shift LOCOMOTION: WALK - SCORE: 0-UNK LOCOMOTION: WHEELCHAIR: Activity did not occur on this shift LOCOMOTION: WHEELCHAIR - SCORE: 0-UNK COMPREHENSION: COMPREHENSION: TYPE: Both COMPREHENSION - STEP 1: Does the patient require help from a person or device, or need extra time to understand complex and a bstract ideas (such as current events, finances, discharge planning, medical issues, relationships, e tc)? No. COMPREHENSION - STEP 2: Does the patient need extra time, require an assistive device (such as glasses for visual comprehensi on or a hearing aid for auditory comprehension) or does s/he have mild difficulty understanding compl ex and abstract information? Yes. COMPREHENSION - SCORE: 6-ELEUTERIO EXPRESSION EXPRESSION: TYPE: Both EXPRESSION - STEP 1: Does the patient require help from a person or device, or need extra time expressing complex and abst ract ideas (such as current events, finances, discharge planning, medical issues, relationships, etc) ? No. EXPRESSION - STEP 2: Does the patient need extra time, require an assistive device (such as augmentive communication syste m or a communication board), OR does s/he have mild difficulty expressing complex and abstract ideas (including mild dysarthria or mild word-find problems)? Yes. EXPRESSION - SCORE: 6-ELEUTERIO SOCIAL INTERACTION: SOCIAL INTERACTION - STEP 1: Does the patient require a helper to interact with others in social and therapeutic situations? No. SOCIAL INTERACTION - STEP 2: Does the patient need extra time in social situations, OR does s/he interact with staff, other patien ts, and family members ONLY in structured environments, OR does s/he require medication for social in teraction? Yes, patient needs extra time SOCIAL INTERACTION - SCORE: 6-ELEUTERIO PROBLEM SOLVING: PROBLEM SOLVING - STEP 1: Does the patient need help from a person or device, or need extra time to solve complex problems such as managing a checking account or confronting interpersonal problems? No. PROBLEM SOLVING - STEP 2: Does the patient require extra time to make decisions or solve problems, OR does s/he have slight dif ficulty reading, initiating, or self-correcting in unfamiliar situations? Yes, patient needs extra ti me. PROBLEM SOLVING - SCORE: 6-ELEUTERIO MEMORY: MEMORY - STEP 1: Does the patient need help from a person or device, or need extra time to remember frequently encount ered people, daily routines, and executing requests? No. MEMORY - STEP 2: Does the patient have slight difficulty recognizing frequently encountered people, daily routines, or executing requests without the need for repetition or using self-initiated or environmental cues to remember? Yes. MEMORY - SCORE: 6-ELEUTERIO SIGNATURE PANEL: The following modified sections: Eating - Score, Grooming - Score, Bathing - Score, Dressing - Upper Body - Score, Dressing - Lower Body - Score, Toileting - Score, Bladder Management - Score, Bowel Man agement - Score, Transfers: Bed, Chair, Wheelchair - Score, Transfers: Toilet - Score, Transfers: Crystal wer - Score, Transfers: Tub - Score, Locomotion: Walk - Score, Locomotion: Wheelchair - Score, Compre hension - Score, Expression - Score, Social Interaction - Score, Problem Solving - Score, Memory - Sc ore were [electronically] signed by Rai Pate on SunJul 01 2019 13:16:50 GMT-0500 ([facility])
--- NOTE | 2019-07-01 14:48 | FAST ---
ENCOUNTER DATE AND TIME: 07/01/2019 08:00 (CDT) NAME REGGIE AMBROSE DATE OF : 1940 DATE OF ADMISSION: 06/17/2019 17:06 (CDT) PHONE: AGE: 79 SSN# [id number] GENDER: Male ENCOUNTER PHYSICIAN: Dr. Todd Westfall M.D. ADMISSION DIAGNOSIS: - Orthopaedic Disorders 08 - Unilateral Hip Fracture (08.11) Right Femoral Neck Fracture. EATING: Activity did not occur on this shift EATING - SCORE: 0-UNK GROOMING: Activity did not occur on this shift GROOMING - SCORE: 0-UNK BATHING: Activity did not occur on this shift BATHING - SCORE: 0-UNK DRESSING - UPPER BODY: Activity did not occur on this shift Patient is not dressing in public clothing ARTICLES SCORE Total number of steps: 0 DRESSING - UPPER BODY - SCORE: 0-UNK DRESSING - LOWER BODY: Activity did not occur on this shift Patient is not dressing in public clothing ARTICLES SCORE Total number of steps: 0 DRESSING - LOWER BODY - SCORE: 0-UNK TOILETING: Activity did not occur on this shift TOILETING - SCORE: 0-UNK BLADDER MANAGEMENT: Activity did not occur on this shift BLADDER MANAGEMENT - SCORE: 7-IND BOWEL MANAGEMENT: Activity did not occur on this shift BOWEL MANAGEMENT - SCORE: 7-IND TRANSFERS: BED, CHAIR, WHEELCHAIR: TRANSFERS: BED, CHAIR, WHEELCHAIR - STEP 1: Does the patient require assistance of a person or device, or need extra time with bed, chair, or whe elchair transfers? Yes. TRANSFERS: BED, CHAIR, WHEELCHAIR - STEP 2: Does the patient require the assistance of a helper? Yes. TRANSFERS: BED, CHAIR, WHEELCHAIR - STEP 3: How much assistance does the patient require from the helper? Only supervision TRANSFERS: BED, CHAIR, WHEELCHAIR - SCORE: 5-SUP TRANSFERS: TOILET: Activity did not occur on this shift TRANSFERS: TOILET - SCORE: 0-UNK TRANSFERS: SHOWER: Activity did not occur on this shift TRANSFERS: SHOWER - SCORE: 0-UNK TRANSFERS: TUB: Activity did not occur on this shift TRANSFERS: TUB - SCORE: 0-UNK LOCOMOTION: WALK: LOCOMOTION: WALK - STEP 1: Does the patient need help from a person or device, or need extra time to walk 150 feet? Yes. LOCOMOTION: WALK - STEP 2: How much assistance does the patient require to walk a minimum of 150 feet? Only supervision, cuing, or coaxing LOCOMOTION: WALK - SCORE: 5-SUP LOCOMOTION: WHEELCHAIR: Activity did not occur on this shift LOCOMOTION: WHEELCHAIR - SCORE: 0-UNK LOCOMOTION: STAIRS: Activity did not occur on this shift LOCOMOTION: STAIRS - SCORE: 0-UNK COMPREHENSION: COMPREHENSION - SCORE: 0-UNK EXPRESSION EXPRESSION - SCORE: 0-UNK SOCIAL INTERACTION: SOCIAL INTERACTION - SCORE: 0-UNK PROBLEM SOLVING: PROBLEM SOLVING - SCORE: 0-UNK MEMORY: MEMORY - SCORE: 0-UNK SIGNATURE PANEL: The following modified sections: Transfers: Bed, Chair, Wheelchair - Score, Transfers: Toilet - Score , Locomotion: Walk - Score, Locomotion: Wheelchair - Score, Locomotion: Stairs - Score were [electron icaepi] signed by Ayan Flowers PT on SunJul 01 2019 14:47:58 T-0500 ([facility] [place] Time)
--- NOTE | 2019-07-01 17:29 | R.PN ---
ENCOUNTER DATE AND TIME: 07/01/2019 17:27 (CDT) NAME REGGIE AMBROSE DATE OF : 1940 DATE OF ADMISSION: 06/17/2019 17:06 (CDT) Right Femoral Neck FractureCHIEF COMPLAINT: Right femoral neck fracture SUBJECTIVE: Pt denied any depression. Pt denied any Shortness of Breath. Ambulated 250' with standby assistance using a rolling walker. Up and down 15 steps with contact guar d assistance using bilateral handrails. VITAL SIGNS Temperature: 97.2 F SBP/DBP: 106/70 Pulse: 80 Resp: 16 MEDICATION ALLERGIES: No Known Drug Allergies (NKDA) ENVIRONMENTAL ALLERGIES: None Known - Substance Allergies None Known - Other Allergies None Known NURSING: - Shower allowing shower - Skin care per protocol PRECAUTIONS: - Posterior Hip Precaution No adduction across midline No external rotation No hip flexion >90 degrees No internal rotation No wheel chair propulsion - Weight Bearing Precaution WBAT right LE ACTIVITIES OOB only with supervision THERAPIES: - Dietary and Nutrition Adequate Nutrition. Nutritional Education. Nutritional Supplements. PHYSICAL EXAM - Gen Alert and awake Lying in bed No apparent distress Oriented to: person, time, and place - Skin No breakdown No abnormalities - Eyes No abnormalities - ENMT No abnormalities - Neck No abnormalities - CVS RRR - Chest No abnormalities - Abd Soft - GI Non distended Deferred - No abnormalities - Ext Right hip surgical site has good hemostasis. - MSK 4+/5 weakness in right lower extremity - Neuro 4/5 strength right lower extremity. - Psych No abnormalities ASSESSMENT: Pt. is a 79 yo Right-handed white male.On 06/10/2019 he was admitted to [facility] with diagnosis Right Femoral Neck Fracture.His impairment category is Orthopaedic Disorders 08 - Unilateral Hip Fracture (08.11).Pre-morbidly, Pt. was independent/mod-I in Self-Care, Sphincter Cont rol, Transfers Control, Locomotion, Communication, and Social Cognition; and he had good Sphincter Co ntrol.Currently, he has deficits of Self-Care, Transfers Control, Locomotion, Endurance, Balance, and Safety Awareness.Pt. is now referred to [facility] for acute in-patient rehab ilitation in order to maximize patient's functional independence in activities of daily living, stren gth, ROM, and mobility.- Rehab Goal Patient has realistic goal of being discharged at assistance level 6-Kaitlin to reside at Home with Fam josé miguel/Relatives. MDM/PLAN: - Physical Therapy Decreased range of motion - to improve, our physical therapists will perform initial evaluation of p t's status upon admission and devise an individualized program for increasing patient's Range of John on. Gait dysfunction - to improve, our physical therapists will perform initial evaluation of pt's statu s upon admission and devise an individualized program for Gait Training, and Wheel Chair mobility Inability to transfer - to improve, our physical therapists will perform initial evaluation of pt's status upon admission and devise an individualized program for Bed mobility Need for home safety evaluation - to improve, our physical therapists will perform initial evaluatio n of pt's status upon admission and devise an individualized program for Home Evaluation Need in caregiver upon discharge - to improve, our physical therapists will perform initial evaluati on of pt's status upon admission and devise an individualized program for Caregiver Training New precaution - to improve, our physical therapists will perform initial evaluation of pt's status upon admission and devise an individualized program for Patient precaution education Poor balance - to improve, our physical therapists will perform initial evaluation of pt's status up on admission and devise an individualized program for Balance Training Poor endurance - to improve, our physical therapists will perform initial evaluation of pt's status upon admission and devise an individualized program for Endurance Training Weakness - to improve, our physical therapists will perform initial evaluation of pt's status upon a dmission and devise an individualized program for Aquatic Therapy, Neuromuscular Reeducation, and Str engthening Achieving independence - to improve, our physical therapists will perform initial evaluation of pt's status upon admission and devise an individualized program for Community Reintegration Activities - Occupational Therapy ADL deficits - to improve, our occupation therapists will perform initial evaluation of pt's status upon admission and devise an individualized program for Bathing, Bed mobility, Community Reintegratio n, Cooking, Dressing, Eating, Fine Motor Skills, Grooming, Homemaking, Kitchen Mobility, Laundry, Pat ient Education, Safety Awareness, Splinting - Positioning, Transfers(Toilet, Tub, Shower), and Wheel Chair Management 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 - to improve, our occupation therapists will perform initial evaluation of pt's status upon admission and devise an individualized program for Caregiver Training Weakness - to improve, our occupation therapists will perform initial evaluation of pt's status upon admission and devise an individualized program for Aquatic Therapy, Balance, Endurance, UE ROM, and UE strengthening - Other See attached MAR (Medication Administration Record) Irving Ambrose.pdf See attached MAR (Medication Administration Record) - Anterior Hip Precaution No abduction No active extension No adduction across midline No external rotation No hip flexion >90 degrees No internal rotation - Diet - Liquid Texture Continue Regular - Tube Feed Continue N/A - Diet Type Continue Regular - Posterior Hip Precaution No adduction across midline No external rotation No hip flexion >90 degrees No internal rotation No wheel chair propulsion - Weight Bearing Precaution NWB right LE WBAT right LE - Skin care per protocol - Diet - Solid Texture Continue Regular - Shower allowing shower FUNCTIONAL STATUS: UPDATED AT WEEKLY TEAM CONFERENCE - Bladder Same accident frequency: 7-Ind - No accidents in the past 7 days - Bowel Same accident frequency: 7-Ind - No accidents in the past 7 days - Walking Same score based on distance walked: 2(50-149ft) - Wheelchair Same score based on distance traveled: 0(N/A) FUNCTIONAL STATUS: - Self-Care A. Eating sup B. Grooming sup C. Bathing sup D. Dressing - Upper sup E. Dressing - Lower modA F. Toileting modA - Sphincter Control G: Bladder control Ind H: Bowel control Ind - Transfers Control I. Bed/Chair/Wheelchair modA J. Toilet modA K. Tub/Shower ADNO - Locomotion L. Walk/Wheelchair (C) CGA L. Walk/Wheelchair (W) CGA M. Stairs ADNO - Communication N. Comprehension (B) Ind O. Expression (B) Ind - Social Cognition P. Social Interaction Ind Q. Problem Solving Ind R. Memory Ind - Endurance Fair - Balance Fair - Safety Awareness Fair CURRENT FUNC. DEFICITS: Self-Care, Transfers Control, Locomotion, Endurance, Balance, and Safety Awareness SIGNATURE PANEL: (CDT)
--- NOTE | 2019-07-01 18:35 | PN ---
Subjective: The patient is feeling well today, looks happier, said his swelling is down. He got IV albumin. He is alternating from the bed to doing his physical therapy and he is also having the scrotal elevation with towels scrotum. It seems like he is improving, so recommend continue medical therapy and elevation. ANGEL/NAILA Voice ID: [id number] Report ID: [id number] MTDD
[2019-07-01] MEDS: ATORVASTATIN 40 MG TAB PO SCH (20:11)
--- NOTE | 2019-07-02 02:09 | FAST ---
SHIFT START DATE/TIME: 07/01/2019 19:00 (CDT) SHIFT END DATE/TIME: 07/02/2019 07:00 (CDT) NAME REGGIE AMBROSE DATE OF : 1940 DATE OF ADMISSION: 06/17/2019 17:06 (CDT) PHONE: AGE: 79 SSN# [id number] GENDER: Male ENCOUNTER PHYSICIAN: Dr. Todd Westfall M.D. ADMISSION DIAGNOSIS: - Orthopaedic Disorders 08 - Unilateral Hip Fracture (08.11) Right Femoral Neck Fracture. EATING: Activity did not occur on this shift EATING - SCORE: 0-UNK GROOMING: Activity did not occur on this shift GROOMING - SCORE: 0-UNK BATHING: Activity did not occur on this shift BATHING - SCORE: 0-UNK DRESSING - UPPER BODY: Patient is not dressing in public clothing ARTICLES SCORE Total number of steps: 0 DRESSING - UPPER BODY - SCORE: 0-UNK DRESSING - LOWER BODY: Patient is not dressing in public clothing ARTICLES SCORE Total number of steps: 0 DRESSING - LOWER BODY - SCORE: 0-UNK TOILETING: TOILETING - STEP 1: Does the patient require the assistance of a person or device, or need extra time with toileting? Yes . TOILETING - STEP 2: Does the patient require the assistance of a helper? Yes. TOILETING - STEP 3: How much assistance does the patient require from the helper? Only supervision TOILETING - SCORE: 5-SUP BLADDER MANAGEMENT: BLADDER MANAGEMENT - STEP 1: Does the patient control the bladder completely and intentionally without equipment or devices or med ications, and is always continent? No. BLADDER MANAGEMENT - STEP 2: Does the patient require the assistance of a helper? Yes. BLADDER MANAGEMENT - STEP 3: How much assistance does the patient require from the helper? Only supervision, stand-by, cuing, or c oaxing BLADDER MANAGEMENT - SCORE: 5-SUP BOWEL MANAGEMENT: BOWEL MANAGEMENT - STEP 1: Does the patient control bowels completely and intentionally without equipment devices or medications AND is always continent? No. BOWEL MANAGEMENT - STEP 2: Does the patient require the assistance of a helper? No, patient requires medication for control such as stool softeners, suppositories, laxatives, enemas, or OTC medications BOWEL MANAGEMENT - SCORE: 6-ELEUTERIO TRANSFERS: BED, CHAIR, WHEELCHAIR: Activity did not occur on this shift TRANSFERS: BED, CHAIR, WHEELCHAIR - SCORE: 0-UNK TRANSFERS: TOILET: Activity did not occur on this shift TRANSFERS: TOILET - SCORE: 0-UNK TRANSFERS: SHOWER: Activity did not occur on this shift TRANSFERS: SHOWER - SCORE: 0-UNK TRANSFERS: TUB: Activity did not occur on this shift TRANSFERS: TUB - SCORE: 0-UNK LOCOMOTION: WALK: Activity did not occur on this shift LOCOMOTION: WALK - SCORE: 0-UNK LOCOMOTION: WHEELCHAIR: Activity did not occur on this shift LOCOMOTION: WHEELCHAIR - SCORE: 0-UNK COMPREHENSION: COMPREHENSION: TYPE: Both COMPREHENSION - STEP 1: Does the patient require help from a person or device, or need extra time to understand complex and a bstract ideas (such as current events, finances, discharge planning, medical issues, relationships, e tc)? No. COMPREHENSION - STEP 2: Does the patient need extra time, require an assistive device (such as glasses for visual comprehensi on or a hearing aid for auditory comprehension) or does s/he have mild difficulty understanding compl ex and abstract information? Yes. COMPREHENSION - SCORE: 6-ELEUTERIO EXPRESSION EXPRESSION: TYPE: Both EXPRESSION - STEP 1: Does the patient require help from a person or device, or need extra time expressing complex and abst ract ideas (such as current events, finances, discharge planning, medical issues, relationships, etc) ? No. EXPRESSION - STEP 2: Does the patient need extra time, require an assistive device (such as augmentive communication syste m or a communication board), OR does s/he have mild difficulty expressing complex and abstract ideas (including mild dysarthria or mild word-find problems)? Yes. EXPRESSION - SCORE: 6-ELEUTERIO SOCIAL INTERACTION: SOCIAL INTERACTION - STEP 1: Does the patient require a helper to interact with others in social and therapeutic situations? No. SOCIAL INTERACTION - STEP 2: Does the patient need extra time in social situations, OR does s/he interact with staff, other patien ts, and family members ONLY in structured environments, OR does s/he require medication for social in teraction? Yes, patient needs extra time SOCIAL INTERACTION - SCORE: 6-ELEUTERIO PROBLEM SOLVING: PROBLEM SOLVING - STEP 1: Does the patient need help from a person or device, or need extra time to solve complex problems such as managing a checking account or confronting interpersonal problems? Yes. PROBLEM SOLVING - STEP 2: Does the patient solve basic routine problems half or more of the time? Yes. PROBLEM SOLVING - STEP 3: How often does the patient need help to solve basic routine problems? 10%-24% of the time PROBLEM SOLVING - SCORE: 4-MIN MEMORY: MEMORY - STEP 1: Does the patient need help from a person or device, or need extra time to remember frequently encount ered people, daily routines, and executing requests? No. MEMORY - STEP 2: Does the patient have slight difficulty recognizing frequently encountered people, daily routines, or executing requests without the need for repetition or using self-initiated or environmental cues to remember? Yes. MEMORY - SCORE: 6-ELEUTERIO SIGNATURE PANEL: The following modified sections: Eating - Score, Grooming - Score, Dressing - Upper Body - Score, Sascha ssing - Lower Body - Score, Toileting - Score, Bladder Management - Score, Bowel Management - Score, Transfers: Bed, Chair, Wheelchair - Score, Transfers: Toilet - Score, Transfers: Shower - Score, Oliveira sfers: Tub - Score, Locomotion: Walk - Score, Locomotion: Wheelchair - Score, Comprehension - Score, Expression - Score, Social Interaction - Score, Problem Solving - Score, Memory - Score were [electro nically] signed by Joyce Damon CNA on SunJul 02 2019 02:09:22 GMT-0500 (Central Daylight Time)
[2019-07-02] MEDS: ENSURE HIGH PROTEIN 237 ML CAN PO SCH ×3 (07:30→16:19)
[2019-07-02] MEDS: LEVOTHYROXINE SOD 0.05 MG TABLET PO SCH (07:53)
[2019-07-02] MEDS: PROMOD 30 ML DOSE PO SCH ×2 (08:00→20:41)
[2019-07-02] MEDS: ZINC SULFATE 220 MG CAP PO SCH (08:59)
[2019-07-02] MEDS: ASPIRIN EC 81 MG TAB PO SCH (08:59)
[2019-07-02] MEDS: ISOSORBIDE MONO SR 30 MG TAB PO SCH (09:00)
[2019-07-02] MEDS: ALLOPURINOL 300 MG TAB PO SCH (09:00)
[2019-07-02] MEDS: FUROSEMIDE 20 MG TABLET PO SCH (09:00)
[2019-07-02] MEDS: HYDROCODONE/APAP 5/325 MG TAB PO PRN (09:01)
[2019-07-02] MEDS: APIXABAN 2.5 MG TABLET PO SCH ×2 (09:01→20:40)
--- NOTE | 2019-07-02 15:57 | FAST ---
ENCOUNTER DATE AND TIME: 07/02/2019 08:00 (CDT) NAME REGGIE AMBROSE DATE OF : 1940 DATE OF ADMISSION: 06/17/2019 17:06 (CDT) PHONE: AGE: 79 SSN# [id number] GENDER: Male ENCOUNTER PHYSICIAN: Dr. Todd Westfall M.D. ADMISSION DIAGNOSIS: - Orthopaedic Disorders 08 - Unilateral Hip Fracture (08.11) Right Femoral Neck Fracture. EATING: Activity did not occur on this shift EATING - SCORE: 0-UNK GROOMING: Activity did not occur on this shift GROOMING - SCORE: 0-UNK BATHING: Activity did not occur on this shift BATHING - SCORE: 0-UNK DRESSING - UPPER BODY: Activity did not occur on this shift Patient is not dressing in public clothing ARTICLES SCORE Total number of steps: 0 DRESSING - UPPER BODY - SCORE: 0-UNK DRESSING - LOWER BODY: Activity did not occur on this shift Patient is not dressing in public clothing ARTICLES SCORE Total number of steps: 0 DRESSING - LOWER BODY - SCORE: 0-UNK TOILETING: Activity did not occur on this shift TOILETING - SCORE: 0-UNK BLADDER MANAGEMENT: Activity did not occur on this shift BLADDER MANAGEMENT - SCORE: 7-IND BOWEL MANAGEMENT: Activity did not occur on this shift BOWEL MANAGEMENT - SCORE: 7-IND TRANSFERS: BED, CHAIR, WHEELCHAIR: TRANSFERS: BED, CHAIR, WHEELCHAIR - STEP 1: Does the patient require assistance of a person or device, or need extra time with bed, chair, or whe elchair transfers? Yes. TRANSFERS: BED, CHAIR, WHEELCHAIR - STEP 2: Does the patient require the assistance of a helper? Yes. TRANSFERS: BED, CHAIR, WHEELCHAIR - STEP 3: How much assistance does the patient require from the helper? Only supervision TRANSFERS: BED, CHAIR, WHEELCHAIR - SCORE: 5-SUP TRANSFERS: TOILET: Activity did not occur on this shift TRANSFERS: TOILET - SCORE: 0-UNK TRANSFERS: SHOWER: Activity did not occur on this shift TRANSFERS: SHOWER - SCORE: 0-UNK TRANSFERS: TUB: Activity did not occur on this shift TRANSFERS: TUB - SCORE: 0-UNK LOCOMOTION: WALK: LOCOMOTION: WALK - STEP 1: Does the patient need help from a person or device, or need extra time to walk 150 feet? Yes. LOCOMOTION: WALK - STEP 2: How much assistance does the patient require to walk a minimum of 150 feet? Only supervision, cuing, or coaxing LOCOMOTION: WALK - SCORE: 5-SUP LOCOMOTION: WHEELCHAIR: Activity did not occur on this shift LOCOMOTION: WHEELCHAIR - SCORE: 0-UNK LOCOMOTION: STAIRS: Activity did not occur on this shift LOCOMOTION: STAIRS - SCORE: 0-UNK COMPREHENSION: COMPREHENSION - SCORE: 0-UNK EXPRESSION EXPRESSION - SCORE: 0-UNK SOCIAL INTERACTION: SOCIAL INTERACTION - SCORE: 0-UNK PROBLEM SOLVING: PROBLEM SOLVING - SCORE: 0-UNK MEMORY: MEMORY - SCORE: 0-UNK SIGNATURE PANEL: The following modified sections: Transfers: Bed, Chair, Wheelchair - Score, Transfers: Toilet - Score , Locomotion: Walk - Score, Locomotion: Stairs - Score, Locomotion: Wheelchair - Score were [electron icaepi] signed by Ayan Flowers PT on SunJul 02 2019 15:56:10 [facility]-0500 (Central Daylight Time)
--- NOTE | 2019-07-02 18:10 | R.PN ---
ENCOUNTER DATE AND TIME: 07/02/2019 18:07 (CDT) NAME REGGIE AMBROSE DATE OF : 1940 DATE OF ADMISSION: 06/17/2019 17:06 (CDT) Right Femoral Neck FractureCHIEF COMPLAINT: Right femoral neck fracture SUBJECTIVE: Pt denied any depression. Pt denied any Shortness of Breath. Ambulated 500' with standby assistance using a rolling walker. Up and down 15 steps with contact guar d assistance using bilateral handrails. VITAL SIGNS Temperature: 97.6 F SBP/DBP: 102/64 Pulse: 77 Resp: 16 MEDICATION ALLERGIES: No Known Drug Allergies (NKDA) ENVIRONMENTAL ALLERGIES: None Known - Substance Allergies None Known - Other Allergies None Known NURSING: - Shower allowing shower - Skin care per protocol PRECAUTIONS: - Posterior Hip Precaution No adduction across midline No external rotation No hip flexion >90 degrees No internal rotation No wheel chair propulsion - Weight Bearing Precaution WBAT right LE ACTIVITIES OOB only with supervision THERAPIES: - Dietary and Nutrition Adequate Nutrition. Nutritional Education. Nutritional Supplements. PHYSICAL EXAM - Gen Alert and awake Lying in bed No apparent distress Oriented to: person, time, and place - Skin No breakdown No abnormalities - Eyes No abnormalities - ENMT No abnormalities - Neck No abnormalities - CVS RRR - Chest No abnormalities - Abd Soft - GI Non distended Deferred - No abnormalities - Ext Right hip surgical site has good hemostasis. - MSK 4+/5 weakness in right lower extremity - Neuro 4/5 strength right lower extremity. - Psych No abnormalities ASSESSMENT: Pt. is a 79 yo Right-handed white male.On 06/10/2019 he was admitted to [facility] with diagnosis Right Femoral Neck Fracture.His impairment category is Orthopaedic Disorders 08 - Unilateral Hip Fracture (08.11).Pre-morbidly, Pt. was independent/mod-I in Self-Care, Sphincter Cont rol, Transfers Control, Locomotion, Communication, and Social Cognition; and he had good Sphincter Co ntrol.Currently, he has deficits of Self-Care, Transfers Control, Locomotion, Endurance, Balance, and Safety Awareness.Pt. is now referred to [facility] for acute in-patient rehab ilitation in order to maximize patient's functional independence in activities of daily living, stren gth, ROM, and mobility.- Rehab Goal Patient has realistic goal of being discharged at assistance level 6-Kaitlin to reside at Home with Fam josé miguel/Relatives. MDM/PLAN: - Physical Therapy Decreased range of motion - to improve, our physical therapists will perform initial evaluation of p t's status upon admission and devise an individualized program for increasing patient's Range of John on. Gait dysfunction - to improve, our physical therapists will perform initial evaluation of pt's statu s upon admission and devise an individualized program for Gait Training, and Wheel Chair mobility Inability to transfer - to improve, our physical therapists will perform initial evaluation of pt's status upon admission and devise an individualized program for Bed mobility Need for home safety evaluation - to improve, our physical therapists will perform initial evaluatio n of pt's status upon admission and devise an individualized program for Home Evaluation Need in caregiver upon discharge - to improve, our physical therapists will perform initial evaluati on of pt's status upon admission and devise an individualized program for Caregiver Training New precaution - to improve, our physical therapists will perform initial evaluation of pt's status upon admission and devise an individualized program for Patient precaution education Poor balance - to improve, our physical therapists will perform initial evaluation of pt's status up on admission and devise an individualized program for Balance Training Poor endurance - to improve, our physical therapists will perform initial evaluation of pt's status upon admission and devise an individualized program for Endurance Training Weakness - to improve, our physical therapists will perform initial evaluation of pt's status upon a dmission and devise an individualized program for Aquatic Therapy, Neuromuscular Reeducation, and Str engthening Achieving independence - to improve, our physical therapists will perform initial evaluation of pt's status upon admission and devise an individualized program for Community Reintegration Activities - Occupational Therapy ADL deficits - to improve, our occupation therapists will perform initial evaluation of pt's status upon admission and devise an individualized program for Bathing, Bed mobility, Community Reintegratio n, Cooking, Dressing, Eating, Fine Motor Skills, Grooming, Homemaking, Kitchen Mobility, Laundry, Pat ient Education, Safety Awareness, Splinting - Positioning, Transfers(Toilet, Tub, Shower), and Wheel Chair Management Need for home care companion - to improve, our occupation therapists will perform initial evaluation of pt's status upon admission and devise an individualized program for Caregiver Training Weakness - to improve, our occupation therapists will perform initial evaluation of pt's status upon admission and devise an individualized program for Aquatic Therapy, Balance, Endurance, UE ROM, and UE strengthening - Other See attached MAR (Medication Administration Record) Irving Ambrose.pdf See attached MAR (Medication Administration Record) - Anterior Hip Precaution No abduction No active extension No adduction across midline No external rotation No hip flexion >90 degrees No internal rotation - Diet - Liquid Texture Continue Regular - Tube Feed Continue N/A - Diet Type Continue Regular - Posterior Hip Precaution No adduction across midline No external rotation No hip flexion >90 degrees No internal rotation No wheel chair propulsion - Weight Bearing Precaution NWB right LE WBAT right LE - Skin care per protocol - Diet - Solid Texture Continue Regular - Shower allowing shower FUNCTIONAL STATUS: UPDATED AT WEEKLY TEAM CONFERENCE - Bladder Same accident frequency: 7-Ind - No accidents in the past 7 days - Bowel Same accident frequency: 7-Ind - No accidents in the past 7 days - Walking Same score based on distance walked: 2(50-149ft) - Wheelchair Same score based on distance traveled: 0(N/A) FUNCTIONAL STATUS: - Self-Care A. Eating sup B. Grooming sup C. Bathing sup D. Dressing - Upper sup E. Dressing - Lower modA F. Toileting modA - Sphincter Control G: Bladder control Ind H: Bowel control Ind - Transfers Control I. Bed/Chair/Wheelchair modA J. Toilet modA K. Tub/Shower ADNO - Locomotion L. Walk/Wheelchair (C) CGA L. Walk/Wheelchair (W) CGA M. Stairs ADNO - Communication N. Comprehension (B) Ind O. Expression (B) Ind - Social Cognition P. Social Interaction Ind Q. Problem Solving Ind R. Memory Ind - Endurance Fair - Balance Fair - Safety Awareness Fair CURRENT FUNC. DEFICITS: Self-Care, Transfers Control, Locomotion, Endurance, Balance, and Safety Awareness SIGNATURE PANEL: (CDT)
[2019-07-02] MEDS: ATORVASTATIN 40 MG TAB PO SCH (20:40)
[2019-07-02] MEDS: MELATONIN 5 MG TABLET PO PRN (22:08)
[2019-07-03] MEDS: MELATONIN 5 MG TABLET PO PRN (00:10)
--- NOTE | 2019-07-03 02:19 | FAST ---
SHIFT START DATE/TIME: 07/02/2019 19:00 (CDT) SHIFT END DATE/TIME: 07/03/2019 07:00 (CDT) NAME REGGIE AMBROSE DATE OF : 1940 DATE OF ADMISSION: 06/17/2019 17:06 (CDT) PHONE: AGE: 79 N# [id number] GENDER: Male ENCOUNTER PHYSICIAN: Dr. Todd Westfall M.D. ADMISSION DIAGNOSIS: - Orthopaedic Disorders 08 - Unilateral Hip Fracture (08.11) Right Femoral Neck Fracture. EATING: Activity did not occur on this shift EATING - SCORE: 0-UNK GROOMING: Activity did not occur on this shift GROOMING - SCORE: 0-UNK BATHING: Activity did not occur on this shift BATHING - SCORE: 0-UNK DRESSING - UPPER BODY: Patient is not dressing in public clothing ARTICLES SCORE Total number of steps: 0 DRESSING - UPPER BODY - SCORE: 0-UNK DRESSING - LOWER BODY: Patient is not dressing in public clothing ARTICLES SCORE Total number of steps: 0 DRESSING - LOWER BODY - SCORE: 0-UNK TOILETING: TOILETING - STEP 1: Does the patient require the assistance of a person or device, or need extra time with toileting? Yes . TOILETING - STEP 2: Does the patient require the assistance of a helper? Yes. TOILETING - STEP 3: How much assistance does the patient require from the helper? Hands-on assistance from the helper TOILETING - STEP 4: Of the 3 tasks: 1) Adjusting clothing prior to use, 2) Cleansing of perineal area, 3) Adjusting clot barb after use; How many tasks does the patient perform WITHOUT assistance of the helper? Two tasks TOILETING - SCORE: 3-MOD BLADDER MANAGEMENT: BLADDER MANAGEMENT - STEP 1: Does the patient control the bladder completely and intentionally without equipment or devices or med ications, and is always continent? No. BLADDER MANAGEMENT - STEP 2: Does the patient require the assistance of a helper? Yes. BLADDER MANAGEMENT - STEP 3: How much assistance does the patient require from the helper? Only supervision, stand-by, cuing, or c oaxing BLADDER MANAGEMENT - SCORE: 5-SUP BOWEL MANAGEMENT: Colostomy care provided by [facility] (patient performs less than 25% of colostomy care). BOWEL MANAGEMENT - SCORE: 1-DEP TRANSFERS: BED, CHAIR, WHEELCHAIR: Activity did not occur on this shift TRANSFERS: BED, CHAIR, WHEELCHAIR - SCORE: 0-UNK TRANSFERS: TOILET: Activity did not occur on this shift TRANSFERS: TOILET - SCORE: 0-UNK TRANSFERS: SHOWER: Activity did not occur on this shift TRANSFERS: SHOWER - SCORE: 0-UNK TRANSFERS: TUB: Activity did not occur on this shift TRANSFERS: TUB - SCORE: 0-UNK LOCOMOTION: WALK: Activity did not occur on this shift LOCOMOTION: WALK - SCORE: 0-UNK LOCOMOTION: WHEELCHAIR: Activity did not occur on this shift LOCOMOTION: WHEELCHAIR - SCORE: 0-UNK COMPREHENSION: COMPREHENSION: TYPE: Both COMPREHENSION - STEP 1: Does the patient require help from a person or device, or need extra time to understand complex and a bstract ideas (such as current events, finances, discharge planning, medical issues, relationships, e tc)? No. COMPREHENSION - STEP 2: Does the patient need extra time, require an assistive device (such as glasses for visual comprehensi on or a hearing aid for auditory comprehension) or does s/he have mild difficulty understanding compl ex and abstract information? Yes. COMPREHENSION - SCORE: 6-ELEUTERIO EXPRESSION EXPRESSION: TYPE: Both EXPRESSION - STEP 1: Does the patient require help from a person or device, or need extra time expressing complex and abst ract ideas (such as current events, finances, discharge planning, medical issues, relationships, etc) ? No. EXPRESSION - STEP 2: Does the patient need extra time, require an assistive device (such as augmentive communication syste m or a communication board), OR does s/he have mild difficulty expressing complex and abstract ideas (including mild dysarthria or mild word-find problems)? Yes. EXPRESSION - SCORE: 6-ELEUTERIO SOCIAL INTERACTION: SOCIAL INTERACTION - STEP 1: Does the patient require a helper to interact with others in social and therapeutic situations? No. SOCIAL INTERACTION - STEP 2: Does the patient need extra time in social situations, OR does s/he interact with staff, other patien ts, and family members ONLY in structured environments, OR does s/he require medication for social in teraction? Yes, patient needs extra time SOCIAL INTERACTION - SCORE: 6-ELEUTERIO PROBLEM SOLVING: PROBLEM SOLVING - STEP 1: Does the patient need help from a person or device, or need extra time to solve complex problems such as managing a checking account or confronting interpersonal problems? Yes. PROBLEM SOLVING - STEP 2: Does the patient solve basic routine problems half or more of the time? Yes. PROBLEM SOLVING - STEP 3: How often does the patient need help to solve basic routine problems? Less than 10% of the time PROBLEM SOLVING - SCORE: 5-SUP MEMORY: MEMORY - STEP 1: Does the patient need help from a person or device, or need extra time to remember frequently encount ered people, daily routines, and executing requests? No. MEMORY - STEP 2: Does the patient have slight difficulty recognizing frequently encountered people, daily routines, or executing requests without the need for repetition or using self-initiated or environmental cues to remember? Yes. MEMORY - SCORE: 6-ELEUTERIO SIGNATURE PANEL: The following modified sections: Eating - Score, Grooming - Score, Dressing - Upper Body - Score, Sascha ssing - Lower Body - Score, Toileting - Score, Bladder Management - Score, Bowel Management - Score, Transfers: Bed, Chair, Wheelchair - Score, Transfers: Toilet - Score, Transfers: Shower - Score, Oliveira sfers: Tub - Score, Locomotion: Walk - Score, Locomotion: Wheelchair - Score, Comprehension - Score, Expression - Score, Social Interaction - Score, Problem Solving - Score, Memory - Score were [electro nically] signed by Joyce Damon CNA on SunJul 03 2019 02:18:33 GMT-0500 (Central Daylight Time)
[2019-07-03 06:15] LABS: Basophils % 0.6 % (0-1.3); Hematocrit 32.4 % (39.6-49.0); Lymphocytes % 16.1 % (15.3-44.8); MPV 10.2 fL (7.6-11.3); RBC Red Blood Cell Count 3.19 M/uL (4.33-5.43)
[2019-07-03 06:48] LABS: Albumin 2.7 g/dL (3.4-5.0); Magnesium 2.1 mg/dL (1.8-2.4); Potassium 4.9 mmol/L (3.5-5.1); Prealbumin 9.3 mg/dL (20-40)
[2019-07-03] MEDS: LEVOTHYROXINE SOD 0.05 MG TABLET PO SCH (07:05)
[2019-07-03] MEDS: ENSURE HIGH PROTEIN 237 ML CAN PO SCH ×3 (07:30→15:27)
[2019-07-03] MEDS: PROMOD 30 ML DOSE PO SCH ×2 (08:00→20:00)
[2019-07-03] MEDS: ASPIRIN EC 81 MG TAB PO SCH (08:51)
[2019-07-03] MEDS: ALLOPURINOL 300 MG TAB PO SCH (08:52)
[2019-07-03] MEDS: ZINC SULFATE 220 MG CAP PO SCH (08:52)
[2019-07-03] MEDS: APIXABAN 2.5 MG TABLET PO SCH ×2 (08:52→20:46)
[2019-07-03] MEDS: ISOSORBIDE MONO SR 30 MG TAB PO SCH (08:52)
[2019-07-03] MEDS: FUROSEMIDE 20 MG TABLET PO SCH (08:53)
[2019-07-03] MEDS: TRAMADOL HCL 50 MG TAB PO PRN (08:53)
--- NOTE | 2019-07-03 14:04 | PN ---
Subjective: The patient feels better today. He states the swelling is less in his leg and less in t he scrotum. He still has some minimal swelling in bilateral lower extremities and scrotum and penis areas. He is doing the elevations and lying down in bed during the daytime to mobilize the swelling. His albumin seems a little bit decreased today, may we can use 1 more round of albumin and he is al so on Lasix, but overall I am pleased with his progress. ANGEL/NAILA Voice ID: [id number] Report ID: [id number]
--- NOTE | 2019-07-03 14:54 | FAST ---
ENCOUNTER DATE AND TIME: 07/03/2019 08:00 (CDT) NAME REGGIE AMBROSE DATE OF : 1940 DATE OF ADMISSION: 06/17/2019 17:06 (CDT) PHONE: AGE: 79 SSN# [id number] GENDER: Male ENCOUNTER PHYSICIAN: Dr. Todd Westfall M.D. ADMISSION DIAGNOSIS: - Orthopaedic Disorders 08 - Unilateral Hip Fracture (08.11) Right Femoral Neck Fracture. EATING: Activity did not occur on this shift EATING - SCORE: 0-UNK GROOMING: Activity did not occur on this shift GROOMING - SCORE: 0-UNK BATHING: Activity did not occur on this shift BATHING - SCORE: 0-UNK DRESSING - UPPER BODY: Activity did not occur on this shift Patient is not dressing in public clothing ARTICLES SCORE Total number of steps: 0 DRESSING - UPPER BODY - SCORE: 0-UNK DRESSING - LOWER BODY: Activity did not occur on this shift Patient is not dressing in public clothing ARTICLES SCORE Total number of steps: 0 DRESSING - LOWER BODY - SCORE: 0-UNK TOILETING: Activity did not occur on this shift TOILETING - SCORE: 0-UNK BLADDER MANAGEMENT: Activity did not occur on this shift BLADDER MANAGEMENT - SCORE: 7-IND BOWEL MANAGEMENT: Activity did not occur on this shift BOWEL MANAGEMENT - SCORE: 7-IND TRANSFERS: BED, CHAIR, WHEELCHAIR: TRANSFERS: BED, CHAIR, WHEELCHAIR - STEP 1: Does the patient require assistance of a person or device, or need extra time with bed, chair, or whe elchair transfers? Yes. TRANSFERS: BED, CHAIR, WHEELCHAIR - STEP 2: Does the patient require the assistance of a helper? Yes. TRANSFERS: BED, CHAIR, WHEELCHAIR - STEP 3: How much assistance does the patient require from the helper? Only supervision TRANSFERS: BED, CHAIR, WHEELCHAIR - SCORE: 5-SUP TRANSFERS: TOILET: Activity did not occur on this shift TRANSFERS: TOILET - SCORE: 0-UNK TRANSFERS: SHOWER: Activity did not occur on this shift TRANSFERS: SHOWER - SCORE: 0-UNK TRANSFERS: TUB: Activity did not occur on this shift TRANSFERS: TUB - SCORE: 0-UNK LOCOMOTION: WALK: LOCOMOTION: WALK - STEP 1: Does the patient need help from a person or device, or need extra time to walk 150 feet? Yes. LOCOMOTION: WALK - STEP 2: How much assistance does the patient require to walk a minimum of 150 feet? Only supervision, cuing, or coaxing LOCOMOTION: WALK - SCORE: 5-SUP LOCOMOTION: WHEELCHAIR: LOCOMOTION: WHEELCHAIR - STEP 1: Does the patient need help to go 150 feet in a wheelchair? Yes. LOCOMOTION: WHEELCHAIR - STEP 2: How much assistance does the patient need from the helper? Only supervision, cuing, or coaxing LOCOMOTION: WHEELCHAIR - SCORE: 5-SUP LOCOMOTION: STAIRS: Activity did not occur on this shift LOCOMOTION: STAIRS - SCORE: 0-UNK COMPREHENSION: COMPREHENSION - SCORE: 0-UNK EXPRESSION EXPRESSION - SCORE: 0-UNK SOCIAL INTERACTION: SOCIAL INTERACTION - SCORE: 0-UNK PROBLEM SOLVING: PROBLEM SOLVING - SCORE: 0-UNK MEMORY: MEMORY - SCORE: 0-UNK SIGNATURE PANEL: The following modified sections: Transfers: Bed, Chair, Wheelchair - Score, Transfers: Toilet - Score , Locomotion: Walk - Score, Locomotion: Wheelchair - Score, Locomotion: Stairs - Score were [electron luci] signed by Miguel Reed PTA on SunJul 03 2019 14:52:40 GMT-0500 (Central Daylight Time)
[2019-07-03] MEDS ORDERED: ALBUMIN HUMAN 25% 100 ML IV ONE (15:00)
[2019-07-03] MEDS: ATORVASTATIN 40 MG TAB PO SCH (20:46)
--- NOTE | 2019-07-04 03:43 | FAST ---
SHIFT START DATE/TIME: 07/03/2019 19:00 (CDT) SHIFT END DATE/TIME: 07/04/2019 07:00 (CDT) NAME REGGIE AMBROSE DATE OF : 1940 DATE OF ADMISSION: 06/17/2019 17:06 (CDT) PHONE: AGE: 79 N# [id number] GENDER: Male ENCOUNTER PHYSICIAN: Dr. Todd Westfall M.D. ADMISSION DIAGNOSIS: - Orthopaedic Disorders 08 - Unilateral Hip Fracture (08.11) Right Femoral Neck Fracture. EATING: Activity did not occur on this shift EATING - SCORE: 0-UNK GROOMING: Activity did not occur on this shift GROOMING - SCORE: 0-UNK BATHING: Activity did not occur on this shift BATHING - SCORE: 0-UNK DRESSING - UPPER BODY: Activity did not occur on this shift ARTICLES SCORE Total number of steps: 0 DRESSING - UPPER BODY - SCORE: 0-UNK DRESSING - LOWER BODY: Activity did not occur on this shift ARTICLES SCORE Total number of steps: 0 DRESSING - LOWER BODY - SCORE: 0-UNK TOILETING: TOILETING - SCORE: 0-UNK BLADDER MANAGEMENT: BLADDER MANAGEMENT - STEP 1: Does the patient control the bladder completely and intentionally without equipment or devices or med ications, and is always continent? No. BLADDER MANAGEMENT - STEP 2: Does the patient require the assistance of a helper? Yes. BLADDER MANAGEMENT - STEP 3: How much assistance does the patient require from the helper? Only set-up of equipment - such as plac ing it within reach of the patient or emptying a device - to maintain either satisfactory voiding pat tern or managing an external device, such as an absorbent pad, ileal device, or catheter BLADDER MANAGEMENT - SCORE: 5-SUP BLADDER MANAGEMENT - FREQUENCY OF ACCIDENTS: BLADDER MANAGEMENT(FA) - STEP 1: How many accidents has the patient had during the current shift? 0 BOWEL MANAGEMENT: Colostomy care provided by [facility] (patient performs less than 25% of colostomy care). BOWEL MANAGEMENT - SCORE: 1-DEP BOWEL MANAGEMENT - FREQUENCY OF ACCIDENTS: BOWEL MANAGEMENT(FA) - STEP 1: How many accidents has the patient had during the current shift? 0 TRANSFERS: BED, CHAIR, WHEELCHAIR: Activity did not occur on this shift TRANSFERS: BED, CHAIR, WHEELCHAIR - SCORE: 0-UNK TRANSFERS: TOILET: Activity did not occur on this shift TRANSFERS: TOILET - SCORE: 0-UNK TRANSFERS: SHOWER: Activity did not occur on this shift TRANSFERS: SHOWER - SCORE: 0-UNK TRANSFERS: TUB: Activity did not occur on this shift TRANSFERS: TUB - SCORE: 0-UNK LOCOMOTION: WALK: Activity did not occur on this shift LOCOMOTION: WALK - SCORE: 0-UNK LOCOMOTION: WHEELCHAIR: Activity did not occur on this shift LOCOMOTION: WHEELCHAIR - SCORE: 0-UNK COMPREHENSION: COMPREHENSION: TYPE: Both COMPREHENSION - STEP 1: Does the patient require help from a person or device, or need extra time to understand complex and a bstract ideas (such as current events, finances, discharge planning, medical issues, relationships, e tc)? No. COMPREHENSION - STEP 2: Does the patient need extra time, require an assistive device (such as glasses for visual comprehensi on or a hearing aid for auditory comprehension) or does s/he have mild difficulty understanding compl ex and abstract information? Yes. COMPREHENSION - SCORE: 6-ELEUTERIO EXPRESSION EXPRESSION: TYPE: Both EXPRESSION - STEP 1: Does the patient require help from a person or device, or need extra time expressing complex and abst ract ideas (such as current events, finances, discharge planning, medical issues, relationships, etc) ? No. EXPRESSION - STEP 2: Does the patient need extra time, require an assistive device (such as augmentive communication syste m or a communication board), OR does s/he have mild difficulty expressing complex and abstract ideas (including mild dysarthria or mild word-find problems)? Yes. EXPRESSION - SCORE: 6-ELEUTERIO SOCIAL INTERACTION: SOCIAL INTERACTION - STEP 1: Does the patient require a helper to interact with others in social and therapeutic situations? No. SOCIAL INTERACTION - STEP 2: Does the patient need extra time in social situations, OR does s/he interact with staff, other patien ts, and family members ONLY in structured environments, OR does s/he require medication for social in teraction? Yes, patient needs extra time SOCIAL INTERACTION - SCORE: 6-ELEUTERIO PROBLEM SOLVING: PROBLEM SOLVING - STEP 1: Does the patient need help from a person or device, or need extra time to solve complex problems such as managing a checking account or confronting interpersonal problems? Yes. PROBLEM SOLVING - STEP 2: Does the patient solve basic routine problems half or more of the time? Yes. PROBLEM SOLVING - STEP 3: How often does the patient need help to solve basic routine problems? Less than 10% of the time PROBLEM SOLVING - SCORE: 5-SUP MEMORY: MEMORY - STEP 1: Does the patient need help from a person or device, or need extra time to remember frequently encount ered people, daily routines, and executing requests? No. MEMORY - STEP 2: Does the patient have slight difficulty recognizing frequently encountered people, daily routines, or executing requests without the need for repetition or using self-initiated or environmental cues to remember? Yes. MEMORY - SCORE: 6-ELEUTERIO SIGNATURE PANEL: The following modified sections: Eating - Score, Grooming - Score, Bathing - Score, Dressing - Upper Body - Score, Dressing - Lower Body - Score, Bladder Management - Score, Bowel Management - Score, Tr ansfers: Bed, Chair, Wheelchair - Score, Transfers: Toilet - Score, Transfers: Shower - Score, Transf ers: Tub - Score, Locomotion: Walk - Score, Locomotion: Wheelchair - Score, Comprehension - Score, Ex pression - Score, Social Interaction - Score, Problem Solving - Score, Memory - Score were [bisi rios] signed by Kat Zambrano RN on SunJul 04 2019 03:43:04 GMT-0500 (Central Daylight Time)
[2019-07-04] MEDS: LEVOTHYROXINE SOD 0.05 MG TABLET PO SCH (06:29)
[2019-07-04] MEDS: ENSURE HIGH PROTEIN 237 ML CAN PO SCH ×3 (07:07→15:21)
[2019-07-04] MEDS: PROMOD 30 ML DOSE PO SCH ×2 (08:00→21:14)
[2019-07-04] MEDS: TRAMADOL HCL 50 MG TAB PO PRN ×2 (08:27→13:25)
[2019-07-04] MEDS: ISOSORBIDE MONO SR 30 MG TAB PO SCH (08:28)
[2019-07-04] MEDS: APIXABAN 2.5 MG TABLET PO SCH ×2 (08:29→21:13)
[2019-07-04] MEDS: ZINC SULFATE 220 MG CAP PO SCH (08:29)
[2019-07-04] MEDS: FUROSEMIDE 20 MG TABLET PO SCH (08:29)
[2019-07-04] MEDS: ALLOPURINOL 300 MG TAB PO SCH (08:29)
[2019-07-04] MEDS: ASPIRIN EC 81 MG TAB PO SCH (08:29)
--- NOTE | 2019-07-04 09:52 | P.RH.PN ---
Estimated Length of Stay: 22 Expected Discharge Date: 07/09/19 Discharge Disposition Plan: Home Family Support: Yes Long-Term Goal: Mobility, Transfers, Self Care Vital Signs: Last Vital Signs Temp 96.9 F 07/04/19 06:15 Pulse 82 07/04/19 08:29 Resp 18 07/04/19 08:27 BP 95/67 07/04/19 08:29 Pulse Ox 100 07/04/19 08:27 Laboratory: Laboratory Last Values WBC 6.4 K/uL (4.3-10.9) 07/03/19 05:48 RBC 3.19 M/uL (4.33-5.43) L 07/03/19 05:48 Hgb 10.7 g/dL (13.6-17.9) L 07/03/19 05:48 Hct 32.4 % (39.6-49.0) L 07/03/19 05:48 MCV 101.6 fL (80-100) H 07/03/19 05:48 MCH 33.4 pg (27.0-35.0) 07/03/19 05:48 MCHC 32.9 g/dL (32.0-36.0) 07/03/19 05:48 RDW 19.4 % (12.1-15.2) H 07/03/19 05:48 Plt Count 116 K/uL (152-406) L D 07/03/19 05:48 MPV 10.2 fL (7.6-11.3) D 07/03/19 05:48 Neutrophils % 72.0 % (41.7-73.7) 07/03/19 05:48 Lymphocytes % 16.1 % (15.3-44.8) 07/03/19 05:48 Monocytes % 6.8 % (3.3-12.3) 07/03/19 05:48 Eosinophils % 4.5 % (0-4.4) H 07/03/19 05:48 Basophils % 0.6 % (0-1.3) 07/03/19 05:48 Absolute Neutrophils 4.6 K/uL (1.8-8.0) 07/03/19 05:48 Absolute Lymphocytes 1.0 K/uL (0.7-4.9) 07/03/19 05:48 Absolute Monocytes 0.4 K/uL (0.1-1.3) 07/03/19 05:48 Absolute Eosinophils 0.3 K/uL (0-0.5) 07/03/19 05:48 Absolute Basophils 0.0 K/uL (0-0.5) 07/03/19 05:48 Sodium 146 mmol/L (136-145) H 07/04/19 06:23 Potassium 5.0 mmol/L (3.5-5.1) 07/04/19 06:23 Chloride 117 mmol/L (98-107) H 07/04/19 06:23 Carbon Dioxide 22 mmol/L (21-32) 07/04/19 06:23 BUN 40 mg/dL (7-18) H 07/04/19 06:23 Creatinine 1.26 mg/dL (0.55-1.3) 07/04/19 06:23 Estimated GFR 55 mL/min (=/>90) L 07/04/19 06:23 Glucose 93 mg/dL (74-106) 07/04/19 06:23 Calcium 8.6 mg/dL (8.5-10.1) 07/04/19 06:23 Phosphorus 4.6 mg/dL (2.5-4.9) 06/20/19 06:30 Magnesium 2.1 mg/dL (1.8-2.4) 07/03/19 05:48 Total Bilirubin 1.1 mg/dL (0.2-1.0) H 06/20/19 06:30 AST 17 U/L (15-37) 06/20/19 06:30 ALT 11 U/L (12-78) L 06/20/19 06:30 Alkaline Phosphatase 137 U/L (45-117) H 06/20/19 06:30 Serum Total Protein 5.2 g/dL (6.4-8.2) L 06/20/19 06:30 Albumin 2.7 g/dL (3.4-5.0) L 07/03/19 05:48 Globulin 2.5 g/dL (2.3-3.5) 06/20/19 06:30 Albumin/Globulin Ratio 1.1 (1.1-1.8) 06/20/19 06:30 Prealbumin 9.3 mg/dL (20-40) L 07/03/19 05:48 Urine Color Dk yellow 06/17/19 20:30 Urine Appearance Clear 06/17/19 20:30 Urine pH 5.0 (5.0-7.0) 06/17/19 20:30 Ur Specific [place] 1.020 (1.005-1.030) 06/17/19 20:30 Urine Ketones Negative (NEG) 06/17/19 20:30 Urine Blood Negative (NEG) 06/17/19 20:30 Urine Nitrite Negative (NEG) 06/17/19 20:30 Urine Bilirubin Negative (NEG) 06/17/19 20:30 Urine Urobilinogen 0.2 mg/dL (0.2-1.0) 06/17/19 20:30 Ur Leukocyte Esterase Negative (NEG) 06/17/19 20:30 Urine RBC None seen /HPF (NONE SEEN) 06/17/19 20:30 Urine WBC <5 /HPF (<5) 06/17/19 20:30 Ur Squamous Epith Cells <5 /HPF (NONE SEEN) 06/17/19 20:30 Urine Bacteria <20 /HPF (NONE SEEN) 06/17/19 20:30 Urine Culture Reflexed Not needed 06/17/19 20:30 Urine Glucose Negative (NEG) 06/17/19 20:30 Urine Total Protein Negative (NEG) 06/17/19 20:30 Weight: 179 lb 6.4 oz Wound Present: No Closed Surgical Incision Present: Yes Negative Pressure Wound Therapy Present: No Physician Update: His labs have been reviewed and are stable. He is doing better with scrotal and leg swelliing. He does well with bed mobility. He is learning to use adaptive equipment. He is walking 250' with standby to modified independence. Medical Issues: DVT Prophylaxis- Eliquis 2.5mg BID PO Pain Issues: Fluker 7.5/325mg Q4H PRN PO. Tramadol 50mg Q6H PRN PO Nutritional Needs: increase protein in diet Functional Improvement: Patient has met all short-term goals at this time and is progressing toward long-term goals. Patient continues to report discomfort in R hip and difficulty breathing. Functional Improvement Occupational Therapy: Pt can benifit with further therapy to address pt's overall weakness and safety. Cont with educating pt on energy conservation techniques for LB dressing and safety due to pt's pain in the right hip. cont to educate pt on A/E as needed for bathing and for LB dressing. Cont to increase pt's endurance and activity tolerance for static/ dynaimic standing balance for functional tasks and for functional transfers. 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 Please see the Rehabilitation Signature page for all necessary signatures.
--- NOTE | 2019-07-04 15:19 | FAST ---
ENCOUNTER DATE AND TIME: 07/04/2019 08:00 (CDT) NAME REGGIE AMBROSE DATE OF : 1940 DATE OF ADMISSION: 06/17/2019 17:06 (CDT) PHONE: AGE: 79 N# [id number] GENDER: Male ENCOUNTER PHYSICIAN: Dr. Todd Westfall M.D. ADMISSION DIAGNOSIS: - Orthopaedic Disorders 08 - Unilateral Hip Fracture (08.11) Right Femoral Neck Fracture. EATING: Activity did not occur on this shift EATING - SCORE: 0-UNK GROOMING: Comb/brush hair Wash, rinse, and dry face Wash, rinse, and dry hands GROOMING - STEP 1: Does the patient require the assistance of a person or device, or need extra time when grooming? No. GROOMING - SCORE: 7-IND BATHING: Abdomen Buttocks Chest Left arm Left lower leg and foot Left upper leg Perineal area Right arm Right lower leg and foot Right upper leg BATHING - STEP 1: Does the patient require the assistance of a person or device, or need extra time when bathing? Yes. BATHING - STEP 2: Does the patient require the assistance of a helper? Yes. BATHING - STEP 3: How much assistance does the patient require from the helper? Only supervision, cuing, coaxing, instr uctions, encouragement BATHING - SCORE: 5-SUP DRESSING - UPPER BODY: T-shirt/pullover shirt (four steps) ARTICLES SCORE Total number of steps: 4 DRESSING - UPPER BODY - STEP 1: Does the patient require help from a person or device, or need extra time when dressing above the [address]? No. DRESSING - UPPER BODY - SCORE: 7-IND DRESSING - LOWER BODY: Elastic waist pants (three steps) Underwear (three steps) ARTICLES SCORE Total number of steps: 6 DRESSING - LOWER BODY - STEP 1: Does the patient require help from a person or device, or need extra time when dressing below the [address]? Yes. DRESSING - LOWER BODY - STEP 2: Does the patient require the assistance of a helper? Yes. DRESSING - LOWER BODY - STEP 3: Does the helper touch the patient while dressing? Yes. DRESSING - LOWER BODY - STEP 4: How many of the total steps does the patient complete on his/her own? 6 DRESSING - LOWER BODY - SCORE: 4-MIN TOILETING: Activity did not occur on this shift TOILETING - SCORE: 0-UNK BLADDER MANAGEMENT: Activity did not occur on this shift BLADDER MANAGEMENT - SCORE: 7-IND BOWEL MANAGEMENT: Activity did not occur on this shift BOWEL MANAGEMENT - SCORE: 7-IND TRANSFERS: BED, CHAIR, WHEELCHAIR: Activity did not occur on this shift TRANSFERS: BED, CHAIR, WHEELCHAIR - SCORE: 0-UNK TRANSFERS: TOILET: Activity did not occur on this shift TRANSFERS: TOILET - SCORE: 0-UNK TRANSFERS: SHOWER: Activity did not occur on this shift TRANSFERS: SHOWER - SCORE: 0-UNK TRANSFERS: TUB: TRANSFERS: TUB - STEP 1: Does the patient require the assistance of a person or device, or need extra time with tub transfers? Yes. TRANSFERS: TUB - STEP 2: Does the patient require the assistance of a helper? Yes. TRANSFERS: TUB - STEP 3: How much assistance does the patient require from the helper? Only supervision, cuing, coaxing, or he lp to set out transfer equipment or to lock brakes and/or lift foot rests TRANSFERS: TUB - SCORE: 5-SUP LOCOMOTION: WALK: Activity did not occur on this shift LOCOMOTION: WALK - SCORE: 0-UNK LOCOMOTION: WHEELCHAIR: Activity did not occur on this shift LOCOMOTION: WHEELCHAIR - SCORE: 0-UNK LOCOMOTION: STAIRS: Activity did not occur on this shift LOCOMOTION: STAIRS - SCORE: 0-UNK COMPREHENSION: COMPREHENSION: TYPE: Both COMPREHENSION - STEP 1: Does the patient require help from a person or device, or need extra time to understand complex and a bstract ideas (such as current events, finances, discharge planning, medical issues, relationships, e tc)? No. COMPREHENSION - STEP 2: Does the patient need extra time, require an assistive device (such as glasses for visual comprehensi on or a hearing aid for auditory comprehension) or does s/he have mild difficulty understanding compl ex and abstract information? Yes. COMPREHENSION - SCORE: 6-ELEUTERIO EXPRESSION EXPRESSION: TYPE: Both EXPRESSION - STEP 1: Does the patient require help from a person or device, or need extra time expressing complex and abst ract ideas (such as current events, finances, discharge planning, medical issues, relationships, etc) ? No. EXPRESSION - STEP 2: Does the patient need extra time, require an assistive device (such as augmentive communication syste m or a communication board), OR does s/he have mild difficulty expressing complex and abstract ideas (including mild dysarthria or mild word-find problems)? Yes. EXPRESSION - SCORE: 6-ELEUTERIO SOCIAL INTERACTION: SOCIAL INTERACTION - STEP 1: Does the patient require a helper to interact with others in social and therapeutic situations? No. SOCIAL INTERACTION - STEP 2: Does the patient need extra time in social situations, OR does s/he interact with staff, other patien ts, and family members ONLY in structured environments, OR does s/he require medication for social in teraction? Yes, patient needs extra time SOCIAL INTERACTION - SCORE: 6-ELEUTERIO PROBLEM SOLVING: PROBLEM SOLVING - STEP 1: Does the patient need help from a person or device, or need extra time to solve complex problems such as managing a checking account or confronting interpersonal problems? Yes. PROBLEM SOLVING - STEP 2: Does the patient solve basic routine problems half or more of the time? Yes. PROBLEM SOLVING - STEP 3: How often does the patient need help to solve basic routine problems? Less than 10% of the time PROBLEM SOLVING - SCORE: 5-SUP MEMORY: MEMORY - STEP 1: Does the patient need help from a person or device, or need extra time to remember frequently encount ered people, daily routines, and executing requests? No. MEMORY - STEP 2: Does the patient have slight difficulty recognizing frequently encountered people, daily routines, or executing requests without the need for repetition or using self-initiated or environmental cues to remember? Yes. MEMORY - SCORE: 6-ELEUTERIO SIGNATURE PANEL: The following modified sections: Eating - Score, Grooming - Score, Bathing - Score, Dressing - Upper Body - Score, Dressing - Lower Body - Score, Toileting - Score, Transfers: Bed, Chair, Wheelchair - S core, Transfers: Toilet - Score, Transfers: Shower - Score, Transfers: Tub - Score, Comprehension - S core, Expression - Score, Social Interaction - Score, Problem Solving - Score, Memory - Score were [e lectronically] signed by Kiley Márquez OT on SunJul 04 2019 15:18:24 T-0500 ([place] Da ylight Time)
--- NOTE | 2019-07-04 15:21 | FAST ---
ENCOUNTER DATE AND TIME: 07/04/2019 08:00 (CDT) NAME REGGIE AMBROSE DATE OF : 1940 DATE OF ADMISSION: 06/17/2019 17:06 (CDT) PHONE: AGE: 79 SSN# [id number] GENDER: Male ENCOUNTER PHYSICIAN: Dr. Todd Westfall M.D. ADMISSION DIAGNOSIS: - Orthopaedic Disorders 08 - Unilateral Hip Fracture (08.11) Right Femoral Neck Fracture. EATING: Activity did not occur on this shift EATING - SCORE: 0-UNK GROOMING: Activity did not occur on this shift GROOMING - SCORE: 0-UNK BATHING: Activity did not occur on this shift BATHING - SCORE: 0-UNK DRESSING - UPPER BODY: Activity did not occur on this shift Patient is not dressing in public clothing ARTICLES SCORE Total number of steps: 0 DRESSING - UPPER BODY - SCORE: 0-UNK DRESSING - LOWER BODY: Activity did not occur on this shift Patient is not dressing in public clothing ARTICLES SCORE Total number of steps: 0 DRESSING - LOWER BODY - SCORE: 0-UNK TOILETING: Activity did not occur on this shift TOILETING - SCORE: 0-UNK BLADDER MANAGEMENT: Activity did not occur on this shift BLADDER MANAGEMENT - SCORE: 7-IND BOWEL MANAGEMENT: Activity did not occur on this shift BOWEL MANAGEMENT - SCORE: 7-IND TRANSFERS: BED, CHAIR, WHEELCHAIR: TRANSFERS: BED, CHAIR, WHEELCHAIR - STEP 1: Does the patient require assistance of a person or device, or need extra time with bed, chair, or whe elchair transfers? Yes. TRANSFERS: BED, CHAIR, WHEELCHAIR - STEP 2: Does the patient require the assistance of a helper? Yes. TRANSFERS: BED, CHAIR, WHEELCHAIR - STEP 3: How much assistance does the patient require from the helper? Only supervision TRANSFERS: BED, CHAIR, WHEELCHAIR - SCORE: 5-SUP TRANSFERS: TOILET: Activity did not occur on this shift TRANSFERS: TOILET - SCORE: 0-UNK TRANSFERS: SHOWER: Activity did not occur on this shift TRANSFERS: SHOWER - SCORE: 0-UNK TRANSFERS: TUB: Activity did not occur on this shift TRANSFERS: TUB - SCORE: 0-UNK LOCOMOTION: WALK: LOCOMOTION: WALK - STEP 1: Does the patient need help from a person or device, or need extra time to walk 150 feet? Yes. LOCOMOTION: WALK - STEP 2: How much assistance does the patient require to walk a minimum of 150 feet? Only supervision, cuing, or coaxing LOCOMOTION: WALK - SCORE: 5-SUP LOCOMOTION: WHEELCHAIR: LOCOMOTION: WHEELCHAIR - STEP 1: Does the patient need help to go 150 feet in a wheelchair? Yes. LOCOMOTION: WHEELCHAIR - STEP 2: How much assistance does the patient need from the helper? Only supervision, cuing, or coaxing LOCOMOTION: WHEELCHAIR - SCORE: 5-SUP LOCOMOTION: STAIRS: Activity did not occur on this shift LOCOMOTION: STAIRS - SCORE: 0-UNK COMPREHENSION: COMPREHENSION - SCORE: 0-UNK EXPRESSION EXPRESSION - SCORE: 0-UNK SOCIAL INTERACTION: SOCIAL INTERACTION - SCORE: 0-UNK PROBLEM SOLVING: PROBLEM SOLVING - SCORE: 0-UNK MEMORY: MEMORY - SCORE: 0-UNK SIGNATURE PANEL: The following modified sections: Transfers: Bed, Chair, Wheelchair - Score, Transfers: Toilet - Score , Locomotion: Walk - Score, Locomotion: Wheelchair - Score, Locomotion: Stairs - Score were [tiffanie verma] signed by Miguel Reed PTA on SunJul 04 2019 15:20:11 T-0500 (Central Daylight Time)
[2019-07-04] MEDS: ATORVASTATIN 40 MG TAB PO SCH (21:13)
--- NOTE | 2019-07-05 02:40 | FAST ---
SHIFT START DATE/TIME: 07/04/2019 19:00 (CDT) SHIFT END DATE/TIME: 07/05/2019 07:00 (CDT) NAME REGGIE AMBROSE DATE OF : 1940 DATE OF ADMISSION: 06/17/2019 17:06 (CDT) PHONE: AGE: 79 N# [id number] GENDER: Male ENCOUNTER PHYSICIAN: Dr. Todd Westfall M.D. ADMISSION DIAGNOSIS: - Orthopaedic Disorders 08 - Unilateral Hip Fracture (08.11) Right Femoral Neck Fracture. EATING: Activity did not occur on this shift EATING - SCORE: 0-UNK GROOMING: Activity did not occur on this shift GROOMING - SCORE: 0-UNK BATHING: Activity did not occur on this shift BATHING - SCORE: 0-UNK DRESSING - UPPER BODY: Patient is not dressing in public clothing ARTICLES SCORE Total number of steps: 0 DRESSING - UPPER BODY - SCORE: 0-UNK DRESSING - LOWER BODY: Patient is not dressing in public clothing ARTICLES SCORE Total number of steps: 0 DRESSING - LOWER BODY - SCORE: 0-UNK TOILETING: Activity did not occur on this shift TOILETING - SCORE: 0-UNK BLADDER MANAGEMENT: BLADDER MANAGEMENT - STEP 1: Does the patient control the bladder completely and intentionally without equipment or devices or med ications, and is always continent? No. BLADDER MANAGEMENT - STEP 2: Does the patient require the assistance of a helper? Yes. BLADDER MANAGEMENT - STEP 3: How much assistance does the patient require from the helper? Only set-up of equipment - such as plac ing it within reach of the patient or emptying a device - to maintain either satisfactory voiding pat tern or managing an external device, such as an absorbent pad, ileal device, or catheter BLADDER MANAGEMENT - SCORE: 5-SUP BOWEL MANAGEMENT: Colostomy care provided by [facility] (patient performs less than 25% of colostomy care). BOWEL MANAGEMENT - SCORE: 1-DEP TRANSFERS: BED, CHAIR, WHEELCHAIR: Activity did not occur on this shift TRANSFERS: BED, CHAIR, WHEELCHAIR - SCORE: 0-UNK TRANSFERS: TOILET: Activity did not occur on this shift TRANSFERS: TOILET - SCORE: 0-UNK TRANSFERS: SHOWER: Activity did not occur on this shift TRANSFERS: SHOWER - SCORE: 0-UNK TRANSFERS: TUB: Activity did not occur on this shift TRANSFERS: TUB - SCORE: 0-UNK LOCOMOTION: WALK: Activity did not occur on this shift LOCOMOTION: WALK - SCORE: 0-UNK LOCOMOTION: WHEELCHAIR: Activity did not occur on this shift LOCOMOTION: WHEELCHAIR - SCORE: 0-UNK COMPREHENSION: COMPREHENSION: TYPE: Both COMPREHENSION - STEP 1: Does the patient require help from a person or device, or need extra time to understand complex and a bstract ideas (such as current events, finances, discharge planning, medical issues, relationships, e tc)? No. COMPREHENSION - STEP 2: Does the patient need extra time, require an assistive device (such as glasses for visual comprehensi on or a hearing aid for auditory comprehension) or does s/he have mild difficulty understanding compl ex and abstract information? Yes. COMPREHENSION - SCORE: 6-ELEUTERIO EXPRESSION EXPRESSION: TYPE: Both EXPRESSION - STEP 1: Does the patient require help from a person or device, or need extra time expressing complex and abst ract ideas (such as current events, finances, discharge planning, medical issues, relationships, etc) ? No. EXPRESSION - STEP 2: Does the patient need extra time, require an assistive device (such as augmentive communication syste m or a communication board), OR does s/he have mild difficulty expressing complex and abstract ideas (including mild dysarthria or mild word-find problems)? Yes. EXPRESSION - SCORE: 6-ELEUTERIO SOCIAL INTERACTION: SOCIAL INTERACTION - STEP 1: Does the patient require a helper to interact with others in social and therapeutic situations? No. SOCIAL INTERACTION - STEP 2: Does the patient need extra time in social situations, OR does s/he interact with staff, other patien ts, and family members ONLY in structured environments, OR does s/he require medication for social in teraction? Yes, patient needs extra time SOCIAL INTERACTION - SCORE: 6-ELEUTERIO PROBLEM SOLVING: PROBLEM SOLVING - STEP 1: Does the patient need help from a person or device, or need extra time to solve complex problems such as managing a checking account or confronting interpersonal problems? Yes. PROBLEM SOLVING - STEP 2: Does the patient solve basic routine problems half or more of the time? Yes. PROBLEM SOLVING - STEP 3: How often does the patient need help to solve basic routine problems? Less than 10% of the time PROBLEM SOLVING - SCORE: 5-SUP MEMORY: MEMORY - STEP 1: Does the patient need help from a person or device, or need extra time to remember frequently encount ered people, daily routines, and executing requests? No. MEMORY - STEP 2: Does the patient have slight difficulty recognizing frequently encountered people, daily routines, or executing requests without the need for repetition or using self-initiated or environmental cues to remember? Yes. MEMORY - SCORE: 6-ELEUTERIO
[2019-07-05] MEDS: LEVOTHYROXINE SOD 0.05 MG TABLET PO SCH (06:38)
[2019-07-05 07:28] LABS: Potassium 4.7 mmol/L (3.5-5.1); Prealbumin 9.2 mg/dL (20-40)
[2019-07-05] MEDS: ENSURE HIGH PROTEIN 237 ML CAN PO SCH ×3 (07:30→16:18)
[2019-07-05] MEDS: PROMOD 30 ML DOSE PO SCH ×3 (08:00→20:00)
[2019-07-05] MEDS: ASPIRIN EC 81 MG TAB PO SCH (08:46)
[2019-07-05] MEDS: FUROSEMIDE 20 MG TABLET PO SCH (08:46)
[2019-07-05] MEDS: APIXABAN 2.5 MG TABLET PO SCH ×2 (08:46→22:15)
[2019-07-05] MEDS: ALLOPURINOL 300 MG TAB PO SCH (08:46)
[2019-07-05] MEDS: ZINC SULFATE 220 MG CAP PO SCH (08:46)
[2019-07-05] MEDS: ISOSORBIDE MONO SR 30 MG TAB PO SCH (08:47)
[2019-07-05] MEDS: TRAMADOL HCL 50 MG TAB PO PRN (09:34)
--- NOTE | 2019-07-05 10:23 | FAST ---
SHIFT START DATE/TIME: 07/05/2019 07:00 (CDT) SHIFT END DATE/TIME: 07/05/2019 19:00 (CDT) NAME REGGIE AMBROSE DATE OF : 1940 DATE OF ADMISSION: 06/17/2019 17:06 (CDT) PHONE: AGE: 79 N# [id number] GENDER: Male ENCOUNTER PHYSICIAN: Dr. Todd Westfall M.D. ADMISSION DIAGNOSIS: - Orthopaedic Disorders 08 - Unilateral Hip Fracture (08.11) Right Femoral Neck Fracture. EATING: EATING - STEP 1: Does the patient require the assistance of a person or device, or need extra time when eating? Yes. EATING - STEP 2: Does the patient require the assistance of a helper? No, patient only requires an assistive device, O R s/he takes more than reasonable time to eat, OR there is a safety concern, OR s/he requires modifie d food consistency EATING - SCORE: 6-ELEUTERIO GROOMING: Activity did not occur on this shift GROOMING - SCORE: 0-UNK BATHING: Activity did not occur on this shift BATHING - SCORE: 0-UNK DRESSING - UPPER BODY: Activity did not occur on this shift ARTICLES SCORE Total number of steps: 0 DRESSING - UPPER BODY - SCORE: 0-UNK DRESSING - LOWER BODY: Activity did not occur on this shift ARTICLES SCORE Total number of steps: 0 DRESSING - LOWER BODY - SCORE: 0-UNK TOILETING: TOILETING - STEP 1: Does the patient require the assistance of a person or device, or need extra time with toileting? Yes . TOILETING - STEP 2: Does the patient require the assistance of a helper? Yes. TOILETING - STEP 3: How much assistance does the patient require from the helper? Hands-on assistance from the helper TOILETING - STEP 4: Of the 3 tasks: 1) Adjusting clothing prior to use, 2) Cleansing of perineal area, 3) Adjusting clot barb after use; How many tasks does the patient perform WITHOUT assistance of the helper? Three tasks with steadying assistance from the helper TOILETING - SCORE: 4-MIN BLADDER MANAGEMENT: BLADDER MANAGEMENT - STEP 1: Does the patient control the bladder completely and intentionally without equipment or devices or med ications, and is always continent? No. BLADDER MANAGEMENT - STEP 2: Does the patient require the assistance of a helper? No, patient requires and independently uses an a ssistive device, such as a urinal, bedpan, bedside commode, catheter, absorbent pad, or collecting de vice BLADDER MANAGEMENT - SCORE: 6-ELEUTERIO BOWEL MANAGEMENT: Colostomy care provided by [facility] (patient performs less than 25% of colostomy care). BOWEL MANAGEMENT - SCORE: 1-DEP TRANSFERS: BED, CHAIR, WHEELCHAIR: TRANSFERS: BED, CHAIR, WHEELCHAIR - STEP 1: Does the patient require assistance of a person or device, or need extra time with bed, chair, or whe elchair transfers? Yes. TRANSFERS: BED, CHAIR, WHEELCHAIR - STEP 2: Does the patient require the assistance of a helper? Yes. TRANSFERS: BED, CHAIR, WHEELCHAIR - STEP 3: How much assistance does the patient require from the helper? Steadying/guiding assistance TRANSFERS: BED, CHAIR, WHEELCHAIR - SCORE: 4-MIN TRANSFERS: TOILET: TRANSFERS: TOILET - STEP 1: Does the patient require the assistance of a person or device, or need extra time with toilet transfe rs? Yes. TRANSFERS: TOILET - STEP 2: Does the patient require the assistance of a helper? Yes. TRANSFERS: TOILET - STEP 3: How much assistance does the patient require from the helper? Patient performs half or more of the tr ansferring tasks TRANSFERS: TOILET - STEP 4: Does the patient need only incidental help such as contact guard or steadying during toilet transfer? No. Patient needs more than incidental help TRANSFERS: TOILET - SCORE: 3-MOD TRANSFERS: SHOWER: Activity did not occur on this shift TRANSFERS: SHOWER - SCORE: 0-UNK TRANSFERS: TUB: Activity did not occur on this shift TRANSFERS: TUB - SCORE: 0-UNK LOCOMOTION: WALK: Activity did not occur on this shift LOCOMOTION: WALK - SCORE: 0-UNK LOCOMOTION: WHEELCHAIR: Activity did not occur on this shift LOCOMOTION: WHEELCHAIR - SCORE: 0-UNK COMPREHENSION: COMPREHENSION: TYPE: Both COMPREHENSION - STEP 1: Does the patient require help from a person or device, or need extra time to understand complex and a bstract ideas (such as current events, finances, discharge planning, medical issues, relationships, e tc)? No. COMPREHENSION - STEP 2: Does the patient need extra time, require an assistive device (such as glasses for visual comprehensi on or a hearing aid for auditory comprehension) or does s/he have mild difficulty understanding compl ex and abstract information? Yes. COMPREHENSION - SCORE: 6-ELEUTERIO EXPRESSION EXPRESSION: TYPE: Both EXPRESSION - STEP 1: Does the patient require help from a person or device, or need extra time expressing complex and abst ract ideas (such as current events, finances, discharge planning, medical issues, relationships, etc) ? No. EXPRESSION - STEP 2: Does the patient need extra time, require an assistive device (such as augmentive communication syste m or a communication board), OR does s/he have mild difficulty expressing complex and abstract ideas (including mild dysarthria or mild word-find problems)? Yes. EXPRESSION - SCORE: 6-ELEUTERIO SOCIAL INTERACTION: SOCIAL INTERACTION - STEP 1: Does the patient require a helper to interact with others in social and therapeutic situations? No. SOCIAL INTERACTION - STEP 2: Does the patient need extra time in social situations, OR does s/he interact with staff, other patien ts, and family members ONLY in structured environments, OR does s/he require medication for social in teraction? Yes, patient needs extra time SOCIAL INTERACTION - SCORE: 6-ELEUTERIO PROBLEM SOLVING: PROBLEM SOLVING - STEP 1: Does the patient need help from a person or device, or need extra time to solve complex problems such as managing a checking account or confronting interpersonal problems? No. PROBLEM SOLVING - STEP 2: Does the patient require extra time to make decisions or solve problems, OR does s/he have slight dif ficulty reading, initiating, or self-correcting in unfamiliar situations? Yes, patient needs extra ti me. PROBLEM SOLVING - SCORE: 6-ELEUTERIO MEMORY: MEMORY - STEP 1: Does the patient need help from a person or device, or need extra time to remember frequently encount ered people, daily routines, and executing requests? No. MEMORY - STEP 2: Does the patient have slight difficulty recognizing frequently encountered people, daily routines, or executing requests without the need for repetition or using self-initiated or environmental cues to remember? Yes. MEMORY - SCORE: 6-ELEUTERIO SIGNATURE PANEL: The following modified sections: Eating - Score, Grooming - Score, Bathing - Score, Dressing - Upper Body - Score, Dressing - Lower Body - Score, Toileting - Score, Bladder Management - Score, Bowel Man agement - Score, Transfers: Bed, Chair, Wheelchair - Score, Transfers: Toilet - Score, Transfers: Crystal wer - Score, Transfers: Tub - Score, Locomotion: Walk - Score, Locomotion: Wheelchair - Score, Compre hension - Score, Expression - Score, Social Interaction - Score, Problem Solving - Score, Memory - Sc ore were [electronically] signed by Rai Pate on Sat Jul 05 2019 10:22:17 T-0500 (Central Daylight Time)
[2019-07-05] MEDS: ATORVASTATIN 40 MG TAB PO SCH (22:15)
[2019-07-06] MEDS: LEVOTHYROXINE SOD 0.05 MG TABLET PO SCH (05:10)
[2019-07-06] MEDS: ENSURE HIGH PROTEIN 237 ML CAN PO SCH ×3 (07:30→16:13)
[2019-07-06] MEDS: PROMOD 30 ML DOSE PO SCH ×2 (08:00→19:30)
[2019-07-06] MEDS: ASPIRIN EC 81 MG TAB PO SCH (08:20)
[2019-07-06] MEDS: ZINC SULFATE 220 MG CAP PO SCH (08:20)
[2019-07-06] MEDS: ISOSORBIDE MONO SR 30 MG TAB PO SCH (08:21)
[2019-07-06] MEDS: ALLOPURINOL 300 MG TAB PO SCH (08:21)
[2019-07-06] MEDS: FUROSEMIDE 20 MG TABLET PO SCH (08:22)
[2019-07-06] MEDS: APIXABAN 2.5 MG TABLET PO SCH ×2 (08:22→19:30)
--- NOTE | 2019-07-06 10:34 | FAST ---
SHIFT START DATE/TIME: 07/06/2019 07:00 (CDT) SHIFT END DATE/TIME: 07/06/2019 19:00 (CDT) NAME REGGIE AMBROSE DATE OF : 1940 DATE OF ADMISSION: 06/17/2019 17:06 (CDT) PHONE: AGE: 79 N# [id number] GENDER: Male ENCOUNTER PHYSICIAN: Dr. Todd Westfall M.D. ADMISSION DIAGNOSIS: - Orthopaedic Disorders 08 - Unilateral Hip Fracture (08.11) Right Femoral Neck Fracture. EATING: EATING - STEP 1: Does the patient require the assistance of a person or device, or need extra time when eating? Yes. EATING - STEP 2: Does the patient require the assistance of a helper? No, patient only requires an assistive device, O R s/he takes more than reasonable time to eat, OR there is a safety concern, OR s/he requires modifie d food consistency EATING - SCORE: 6-ELEUTERIO GROOMING: Activity did not occur on this shift GROOMING - SCORE: 0-UNK BATHING: Activity did not occur on this shift BATHING - SCORE: 0-UNK DRESSING - UPPER BODY: Activity did not occur on this shift ARTICLES SCORE Total number of steps: 0 DRESSING - UPPER BODY - SCORE: 0-UNK DRESSING - LOWER BODY: Activity did not occur on this shift ARTICLES SCORE Total number of steps: 0 DRESSING - LOWER BODY - SCORE: 0-UNK TOILETING: TOILETING - STEP 1: Does the patient require the assistance of a person or device, or need extra time with toileting? Yes . TOILETING - STEP 2: Does the patient require the assistance of a helper? Yes. TOILETING - STEP 3: How much assistance does the patient require from the helper? Hands-on assistance from the helper TOILETING - STEP 4: Of the 3 tasks: 1) Adjusting clothing prior to use, 2) Cleansing of perineal area, 3) Adjusting clot barb after use; How many tasks does the patient perform WITHOUT assistance of the helper? Two tasks TOILETING - SCORE: 3-MOD BLADDER MANAGEMENT: BLADDER MANAGEMENT - STEP 1: Does the patient control the bladder completely and intentionally without equipment or devices or med ications, and is always continent? No. BLADDER MANAGEMENT - STEP 2: Does the patient require the assistance of a helper? No, patient requires and independently uses an a ssistive device, such as a urinal, bedpan, bedside commode, catheter, absorbent pad, or collecting de vice BLADDER MANAGEMENT - SCORE: 6-ELEUTERIO BOWEL MANAGEMENT: Colostomy care provided by [facility] (patient performs less than 25% of colostomy care). BOWEL MANAGEMENT - SCORE: 1-DEP TRANSFERS: BED, CHAIR, WHEELCHAIR: TRANSFERS: BED, CHAIR, WHEELCHAIR - STEP 1: Does the patient require assistance of a person or device, or need extra time with bed, chair, or whe elchair transfers? Yes. TRANSFERS: BED, CHAIR, WHEELCHAIR - STEP 2: Does the patient require the assistance of a helper? Yes. TRANSFERS: BED, CHAIR, WHEELCHAIR - STEP 3: How much assistance does the patient require from the helper? Lifting of the legs TRANSFERS: BED, CHAIR, WHEELCHAIR - STEP 4: How many legs does the patient require the helper to lift? both legs TRANSFERS: BED, CHAIR, WHEELCHAIR - SCORE: 3-MOD TRANSFERS: TOILET: TRANSFERS: TOILET - STEP 1: Does the patient require the assistance of a person or device, or need extra time with toilet transfe rs? Yes. TRANSFERS: TOILET - STEP 2: Does the patient require the assistance of a helper? Yes. TRANSFERS: TOILET - STEP 3: How much assistance does the patient require from the helper? Patient performs half or more of the tr ansferring tasks TRANSFERS: TOILET - STEP 4: Does the patient need only incidental help such as contact guard or steadying during toilet transfer? Yes. TRANSFERS: TOILET - SCORE: 4-MIN TRANSFERS: SHOWER: Activity did not occur on this shift TRANSFERS: SHOWER - SCORE: 0-UNK TRANSFERS: TUB: Activity did not occur on this shift TRANSFERS: TUB - SCORE: 0-UNK LOCOMOTION: WALK: Activity did not occur on this shift LOCOMOTION: WALK - SCORE: 0-UNK LOCOMOTION: WHEELCHAIR: Activity did not occur on this shift LOCOMOTION: WHEELCHAIR - SCORE: 0-UNK COMPREHENSION: COMPREHENSION: TYPE: Both COMPREHENSION - STEP 1: Does the patient require help from a person or device, or need extra time to understand complex and a bstract ideas (such as current events, finances, discharge planning, medical issues, relationships, e tc)? No. COMPREHENSION - STEP 2: Does the patient need extra time, require an assistive device (such as glasses for visual comprehensi on or a hearing aid for auditory comprehension) or does s/he have mild difficulty understanding compl ex and abstract information? Yes. COMPREHENSION - SCORE: 6-ELEUTERIO EXPRESSION EXPRESSION: TYPE: Both EXPRESSION - STEP 1: Does the patient require help from a person or device, or need extra time expressing complex and abst ract ideas (such as current events, finances, discharge planning, medical issues, relationships, etc) ? No. EXPRESSION - STEP 2: Does the patient need extra time, require an assistive device (such as augmentive communication syste m or a communication board), OR does s/he have mild difficulty expressing complex and abstract ideas (including mild dysarthria or mild word-find problems)? Yes. EXPRESSION - SCORE: 6-ELEUTERIO SOCIAL INTERACTION: SOCIAL INTERACTION - STEP 1: Does the patient require a helper to interact with others in social and therapeutic situations? No. SOCIAL INTERACTION - STEP 2: Does the patient need extra time in social situations, OR does s/he interact with staff, other patien ts, and family members ONLY in structured environments, OR does s/he require medication for social in teraction? Yes, patient needs extra time SOCIAL INTERACTION - SCORE: 6-ELEUTERIO PROBLEM SOLVING: PROBLEM SOLVING - STEP 1: Does the patient need help from a person or device, or need extra time to solve complex problems such as managing a checking account or confronting interpersonal problems? No. PROBLEM SOLVING - STEP 2: Does the patient require extra time to make decisions or solve problems, OR does s/he have slight dif ficulty reading, initiating, or self-correcting in unfamiliar situations? Yes, patient needs extra ti me. PROBLEM SOLVING - SCORE: 6-ELEUTERIO MEMORY: MEMORY - STEP 1: Does the patient need help from a person or device, or need extra time to remember frequently encount ered people, daily routines, and executing requests? No. MEMORY - STEP 2: Does the patient have slight difficulty recognizing frequently encountered people, daily routines, or executing requests without the need for repetition or using self-initiated or environmental cues to remember? Yes. MEMORY - SCORE: 6-ELEUTERIO SIGNATURE PANEL: The following modified sections: Eating - Score, Grooming - Score, Bathing - Score, Dressing - Upper Body - Score, Dressing - Lower Body - Score, Toileting - Score, Bladder Management - Score, Bowel Man agement - Score, Transfers: Bed, Chair, Wheelchair - Score, Transfers: Toilet - Score, Transfers: Crystal wer - Score, Transfers: Tub - Score, Locomotion: Walk - Score, Locomotion: Wheelchair - Score, Compre hension - Score, Expression - Score, Social Interaction - Score, Problem Solving - Score, Memory - Sc ore were [electronically] signed by Rai Pate on SunJul 06 2019 10:33:11 GMT-0500 ([place] Daylight Time)
[2019-07-06] MEDS: HYDROCODONE/APAP 5/325 MG TAB PO PRN (19:29)
[2019-07-06] MEDS: ATORVASTATIN 40 MG TAB PO SCH (19:29)
[2019-07-06] MEDS: MELATONIN 5 MG TABLET PO PRN (23:23)
--- NOTE | 2019-07-07 04:23 | FAST ---
SHIFT START DATE/TIME: 07/06/2019 19:00 (CDT) SHIFT END DATE/TIME: 07/07/2019 07:00 (CDT) NAME REGGIE AMBROSE DATE OF : 1940 DATE OF ADMISSION: 06/17/2019 17:06 (CDT) PHONE: AGE: 79 SSN# [id number] GENDER: Male ENCOUNTER PHYSICIAN: Dr. Todd Westfall M.D. ADMISSION DIAGNOSIS: - Orthopaedic Disorders 08 - Unilateral Hip Fracture (08.11) Right Femoral Neck Fracture. EATING: Activity did not occur on this shift EATING - SCORE: 0-UNK GROOMING: Activity did not occur on this shift GROOMING - SCORE: 0-UNK BATHING: Activity did not occur on this shift BATHING - SCORE: 0-UNK DRESSING - UPPER BODY: Activity did not occur on this shift ARTICLES SCORE Total number of steps: 0 DRESSING - UPPER BODY - SCORE: 0-UNK DRESSING - LOWER BODY: Activity did not occur on this shift ARTICLES SCORE Total number of steps: 0 DRESSING - LOWER BODY - SCORE: 0-UNK TOILETING: TOILETING - STEP 1: Does the patient require the assistance of a person or device, or need extra time with toileting? Yes . TOILETING - STEP 2: Does the patient require the assistance of a helper? Yes. TOILETING - STEP 3: How much assistance does the patient require from the helper? Only supervision TOILETING - SCORE: 5-SUP BLADDER MANAGEMENT: BLADDER MANAGEMENT - STEP 1: Does the patient control the bladder completely and intentionally without equipment or devices or med ications, and is always continent? Yes. BLADDER MANAGEMENT - SCORE: 7-IND BLADDER MANAGEMENT - FREQUENCY OF ACCIDENTS: BLADDER MANAGEMENT(FA) - STEP 1: How many accidents has the patient had during the current shift? 0 BOWEL MANAGEMENT: Colostomy care provided by [facility] (patient performs less than 25% of colostomy care). BOWEL MANAGEMENT - SCORE: 1-DEP BOWEL MANAGEMENT - FREQUENCY OF ACCIDENTS: BOWEL MANAGEMENT(FA) - STEP 1: How many accidents has the patient had during the current shift? 0 TRANSFERS: BED, CHAIR, WHEELCHAIR: Activity did not occur on this shift TRANSFERS: BED, CHAIR, WHEELCHAIR - SCORE: 0-UNK TRANSFERS: TOILET: Activity did not occur on this shift TRANSFERS: TOILET - SCORE: 0-UNK TRANSFERS: SHOWER: Activity did not occur on this shift TRANSFERS: SHOWER - SCORE: 0-UNK TRANSFERS: TUB: Activity did not occur on this shift TRANSFERS: TUB - SCORE: 0-UNK LOCOMOTION: WALK: Activity did not occur on this shift LOCOMOTION: WALK - SCORE: 0-UNK LOCOMOTION: WHEELCHAIR: Activity did not occur on this shift LOCOMOTION: WHEELCHAIR - SCORE: 0-UNK COMPREHENSION: COMPREHENSION: TYPE: Both COMPREHENSION - STEP 1: Does the patient require help from a person or device, or need extra time to understand complex and a bstract ideas (such as current events, finances, discharge planning, medical issues, relationships, e tc)? No. COMPREHENSION - STEP 2: Does the patient need extra time, require an assistive device (such as glasses for visual comprehensi on or a hearing aid for auditory comprehension) or does s/he have mild difficulty understanding compl ex and abstract information? No. COMPREHENSION - SCORE: 7-IND EXPRESSION EXPRESSION: TYPE: Both EXPRESSION - STEP 1: Does the patient require help from a person or device, or need extra time expressing complex and abst ract ideas (such as current events, finances, discharge planning, medical issues, relationships, etc) ? No. EXPRESSION - STEP 2: Does the patient need extra time, require an assistive device (such as augmentive communication syste m or a communication board), OR does s/he have mild difficulty expressing complex and abstract ideas (including mild dysarthria or mild word-find problems)? No. EXPRESSION - SCORE: 7-IND SOCIAL INTERACTION: SOCIAL INTERACTION - STEP 1: Does the patient require a helper to interact with others in social and therapeutic situations? No. SOCIAL INTERACTION - STEP 2: Does the patient need extra time in social situations, OR does s/he interact with staff, other patien ts, and family members ONLY in structured environments, OR does s/he require medication for social in teraction? No. SOCIAL INTERACTION - SCORE: 7-IND PROBLEM SOLVING: PROBLEM SOLVING - SCORE: 0-UNK MEMORY: MEMORY - STEP 1: Does the patient need help from a person or device, or need extra time to remember frequently encount ered people, daily routines, and executing requests? No. MEMORY - STEP 2: Does the patient have slight difficulty recognizing frequently encountered people, daily routines, or executing requests without the need for repetition or using self-initiated or environmental cues to remember? No. MEMORY - SCORE: 7-IND SIGNATURE PANEL: The following modified sections: Eating - Score, Grooming - Score, Bathing - Score, Dressing - Upper Body - Score, Dressing - Lower Body - Score, Toileting - Score, Bladder Management - Score, Bowel Man agement - Score, Transfers: Bed, Chair, Wheelchair - Score, Transfers: Toilet - Score, Transfers: Crystal wer - Score, Transfers: Tub - Score, Locomotion: Walk - Score, Locomotion: Wheelchair - Score, Compre hension - Score, Expression - Score, Social Interaction - Score, Problem Solving - Score, Memory - Sc ore were [electronically] signed by Julienne Pantoja on SunJul 07 2019 04:22:11 T-0500 ([facility] Time)
[2019-07-07] MEDS: LEVOTHYROXINE SOD 0.05 MG TABLET PO SCH (05:24)
[2019-07-07] MEDS: ENSURE HIGH PROTEIN 237 ML CAN PO SCH ×3 (07:09→16:30)
[2019-07-07] MEDS: ALLOPURINOL 300 MG TAB PO SCH (07:17)
[2019-07-07] MEDS: ASPIRIN EC 81 MG TAB PO SCH (07:17)
[2019-07-07] MEDS: ZINC SULFATE 220 MG CAP PO SCH (07:17)
[2019-07-07] MEDS: APIXABAN 2.5 MG TABLET PO SCH ×2 (07:17→21:33)
[2019-07-07] MEDS: ISOSORBIDE MONO SR 30 MG TAB PO SCH (07:18)
[2019-07-07] MEDS: FUROSEMIDE 20 MG TABLET PO SCH (07:18)
[2019-07-07] MEDS: PROMOD 30 ML DOSE PO SCH ×2 (08:00→21:34)
[2019-07-07] MEDS: HYDROCODONE/APAP 5/325 MG TAB PO PRN (10:05)
--- NOTE | 2019-07-07 16:00 | FAST ---
ENCOUNTER DATE AND TIME: 07/07/2019 08:00 (CDT) NAME REGGIE AMBROSE DATE OF : 1940 DATE OF ADMISSION: 06/17/2019 17:06 (CDT) PHONE: AGE: 79 SSN# [id number] GENDER: Male ENCOUNTER PHYSICIAN: Dr. Todd Wsetfall M.D. ADMISSION DIAGNOSIS: - Orthopaedic Disorders 08 - Unilateral Hip Fracture (08.11) Right Femoral Neck Fracture. EATING: Activity did not occur on this shift EATING - SCORE: 0-UNK GROOMING: Activity did not occur on this shift GROOMING - SCORE: 0-UNK BATHING: Activity did not occur on this shift BATHING - SCORE: 0-UNK DRESSING - UPPER BODY: Activity did not occur on this shift Patient is not dressing in public clothing ARTICLES SCORE Total number of steps: 0 DRESSING - UPPER BODY - SCORE: 0-UNK DRESSING - LOWER BODY: Activity did not occur on this shift Patient is not dressing in public clothing ARTICLES SCORE Total number of steps: 0 DRESSING - LOWER BODY - SCORE: 0-UNK TOILETING: Activity did not occur on this shift TOILETING - SCORE: 0-UNK BLADDER MANAGEMENT: Activity did not occur on this shift BLADDER MANAGEMENT - SCORE: 7-IND BOWEL MANAGEMENT: Activity did not occur on this shift BOWEL MANAGEMENT - SCORE: 7-IND TRANSFERS: BED, CHAIR, WHEELCHAIR: TRANSFERS: BED, CHAIR, WHEELCHAIR - STEP 1: Does the patient require assistance of a person or device, or need extra time with bed, chair, or whe elchair transfers? Yes. TRANSFERS: BED, CHAIR, WHEELCHAIR - STEP 2: Does the patient require the assistance of a helper? No. Patient only requires an assistive device fo r bed, chair, wheelchair transfers such as a sliding board, grab bar, or brace, OR s/he takes more th an reasonable time, OR there is a safety concern when s/he performs the transfers TRANSFERS: BED, CHAIR, WHEELCHAIR - SCORE: 6-ELEUTERIO TRANSFERS: TOILET: Activity did not occur on this shift TRANSFERS: TOILET - SCORE: 0-UNK TRANSFERS: SHOWER: Activity did not occur on this shift TRANSFERS: SHOWER - SCORE: 0-UNK TRANSFERS: TUB: Activity did not occur on this shift TRANSFERS: TUB - SCORE: 0-UNK LOCOMOTION: WALK: LOCOMOTION: WALK - STEP 1: Does the patient need help from a person or device, or need extra time to walk 150 feet? No. LOCOMOTION: WALK - STEP 2: Does the patient need an assistive device (such as an orthosis, prosthesis, crutches, or walker) to g o 150 feet, OR does s/he take more than reasonable time, OR is there a concern for safety? Yes, the p atient needs an assistive device LOCOMOTION: WALK - SCORE: 6-ELEUTERIO LOCOMOTION: WHEELCHAIR: LOCOMOTION: WHEELCHAIR - STEP 1: Does the patient need help to go 150 feet in a wheelchair? No. LOCOMOTION: WHEELCHAIR - SCORE: 6-ELEUTERIO LOCOMOTION: STAIRS: Activity did not occur on this shift LOCOMOTION: STAIRS - SCORE: 0-UNK COMPREHENSION: COMPREHENSION - SCORE: 0-UNK EXPRESSION EXPRESSION - SCORE: 0-UNK SOCIAL INTERACTION: SOCIAL INTERACTION - SCORE: 0-UNK PROBLEM SOLVING: PROBLEM SOLVING - SCORE: 0-UNK MEMORY: MEMORY - SCORE: 0-UNK SIGNATURE PANEL: The following modified sections: Transfers: Bed, Chair, Wheelchair - Score, Transfers: Toilet - Score , Locomotion: Walk - Score, Locomotion: Wheelchair - Score, Locomotion: Stairs - Score were [electron ically] signed by Ayan Flowers PT on SunJul 07 2019 15:59:56 GMT-0500 (Central Daylight Time)
--- NOTE | 2019-07-07 18:56 | R.PN ---
ENCOUNTER DATE AND TIME: 07/07/2019 18:52 (CDT) NAME REGGIE AMBROSE DATE OF : 1940 DATE OF ADMISSION: 06/17/2019 17:06 (CDT) Right Femoral Neck FractureCHIEF COMPLAINT: Right femoral neck fracture SUBJECTIVE: Pt denied any depression. Pt denied any Shortness of Breath. Ambulated 250' with modified independence using a rolling walker. Up and down 15 steps with contact g uard assistance using bilateral handrails. VITAL SIGNS Temperature: 97.6 F SBP/DBP: 92/67 Pulse: 81 Resp: 16 MEDICATION ALLERGIES: No Known Drug Allergies (NKDA) ENVIRONMENTAL ALLERGIES: None Known - Substance Allergies None Known - Other Allergies None Known NURSING: - Shower allowing shower - Skin care per protocol PRECAUTIONS: - Posterior Hip Precaution No adduction across midline No external rotation No hip flexion >90 degrees No internal rotation No wheel chair propulsion - Weight Bearing Precaution WBAT right LE ACTIVITIES OOB only with supervision THERAPIES: - Dietary and Nutrition Adequate Nutrition. Nutritional Education. Nutritional Supplements. PHYSICAL EXAM - Gen Alert and awake Lying in bed No apparent distress Oriented to: person, time, and place - Skin No breakdown No abnormalities - Eyes No abnormalities - ENMT No abnormalities - Neck No abnormalities - CVS RRR - Chest No abnormalities - Abd Soft - GI Non distended Deferred - No abnormalities - Ext Right hip surgical site has good hemostasis. - MSK 4+/5 weakness in right lower extremity - Neuro 4/5 strength right lower extremity. - Psych No abnormalities ASSESSMENT: Pt. is a 79 yo Right-handed white male.On 06/10/2019 he was admitted to [facility] with diagnosis Right Femoral Neck Fracture.His impairment category is Orthopaedic Disorders 08 - Unilateral Hip Fracture (08.11).Pre-morbidly, Pt. was independent/mod-I in Self-Care, Sphincter Cont rol, Transfers Control, Locomotion, Communication, and Social Cognition; and he had good Sphincter Co ntrol.Currently, he has deficits of Self-Care, Transfers Control, Locomotion, Endurance, Balance, and Safety Awareness.Pt. is now referred to [facility] for acute in-patient rehab ilitation in order to maximize patient's functional independence in activities of daily living, stren gth, ROM, and mobility.- Rehab Goal Patient has realistic goal of being discharged at assistance level 6-Kaitlin to reside at Home with Fam josé miguel/Relatives. MDM/PLAN: - Physical Therapy Decreased range of motion - to improve, our physical therapists will perform initial evaluation of p t's status upon admission and devise an individualized program for increasing patient's Range of John on. Gait dysfunction - to improve, our physical therapists will perform initial evaluation of pt's statu s upon admission and devise an individualized program for Gait Training, and Wheel Chair mobility Inability to transfer - to improve, our physical therapists will perform initial evaluation of pt's status upon admission and devise an individualized program for Bed mobility Need for home safety evaluation - to improve, our physical therapists will perform initial evaluatio n of pt's status upon admission and devise an individualized program for Home Evaluation Need in caregiver upon discharge - to improve, our physical therapists will perform initial evaluati on of pt's status upon admission and devise an individualized program for Caregiver Training New precaution - to improve, our physical therapists will perform initial evaluation of pt's status upon admission and devise an individualized program for Patient precaution education Poor balance - to improve, our physical therapists will perform initial evaluation of pt's status up on admission and devise an individualized program for Balance Training Poor endurance - to improve, our physical therapists will perform initial evaluation of pt's status upon admission and devise an individualized program for Endurance Training Weakness - to improve, our physical therapists will perform initial evaluation of pt's status upon a dmission and devise an individualized program for Aquatic Therapy, Neuromuscular Reeducation, and Str engthening Achieving independence - to improve, our physical therapists will perform initial evaluation of pt's status upon admission and devise an individualized program for Community Reintegration Activities - Occupational Therapy ADL deficits - to improve, our occupation therapists will perform initial evaluation of pt's status upon admission and devise an individualized program for Bathing, Bed mobility, Community Reintegratio n, Cooking, Dressing, Eating, Fine Motor Skills, Grooming, Homemaking, Kitchen Mobility, Laundry, Pat ient Education, Safety Awareness, Splinting - Positioning, Transfers(Toilet, Tub, Shower), and Wheel Chair Management Need for reproductive healthcare assistant - to improve, our occupation therapists will perform initial evaluation of pt's status upon admission and devise an individualized program for Caregiver Training Weakness - to improve, our occupation therapists will perform initial evaluation of pt's status upon admission and devise an individualized program for Aquatic Therapy, Balance, Endurance, UE ROM, and UE strengthening - Other See attached MAR (Medication Administration Record) Irving Ambrose.pdf See attached MAR (Medication Administration Record) - Anterior Hip Precaution No abduction No active extension No adduction across midline No external rotation No hip flexion >90 degrees No internal rotation - Diet - Liquid Texture Continue Regular - Tube Feed Continue N/A - Diet Type Continue Regular - Posterior Hip Precaution No adduction across midline No external rotation No hip flexion >90 degrees No internal rotation No wheel chair propulsion - Weight Bearing Precaution NWB right LE WBAT right LE - Skin care per protocol - Diet - Solid Texture Continue Regular - Shower allowing shower FUNCTIONAL STATUS: UPDATED AT WEEKLY TEAM CONFERENCE - Bladder Same accident frequency: 7-Ind - No accidents in the past 7 days - Bowel Same accident frequency: 7-Ind - No accidents in the past 7 days - Walking Same score based on distance walked: 2(50-149ft) - Wheelchair Same score based on distance traveled: 0(N/A) FUNCTIONAL STATUS: - Self-Care A. Eating sup B. Grooming sup C. Bathing sup D. Dressing - Upper sup E. Dressing - Lower modA F. Toileting modA - Sphincter Control G: Bladder control Ind H: Bowel control Ind - Transfers Control I. Bed/Chair/Wheelchair modA J. Toilet modA K. Tub/Shower ADNO - Locomotion L. Walk/Wheelchair (C) CGA L. Walk/Wheelchair (W) CGA M. Stairs ADNO - Communication N. Comprehension (B) Ind O. Expression (B) Ind - Social Cognition P. Social Interaction Ind Q. Problem Solving Ind R. Memory Ind - Endurance Fair - Balance Fair - Safety Awareness Fair CURRENT FUNC. DEFICITS: Self-Care, Transfers Control, Locomotion, Endurance, Balance, and Safety Awareness SIGNATURE PANEL: (CDT)
[2019-07-07] MEDS: MELATONIN 5 MG TABLET PO PRN (21:32)
[2019-07-07] MEDS: ATORVASTATIN 40 MG TAB PO SCH (21:33)
[2019-07-08] MEDS: TRAMADOL HCL 50 MG TAB PO PRN ×2 (00:11→07:29)
--- NOTE | 2019-07-08 04:04 | FAST ---
SHIFT START DATE/TIME: 07/07/2019 19:00 (CDT) SHIFT END DATE/TIME: 07/08/2019 07:00 (CDT) NAME REGGIE AMBROSE DATE OF : 1940 DATE OF ADMISSION: 06/17/2019 17:06 (CDT) PHONE: AGE: 79 N# [id number] GENDER: Male ENCOUNTER PHYSICIAN: Dr. Todd Westfall M.D. ADMISSION DIAGNOSIS: - Orthopaedic Disorders 08 - Unilateral Hip Fracture (08.11) Right Femoral Neck Fracture. EATING: Activity did not occur on this shift EATING - SCORE: 0-UNK GROOMING: Activity did not occur on this shift GROOMING - SCORE: 0-UNK BATHING: Activity did not occur on this shift BATHING - SCORE: 0-UNK DRESSING - UPPER BODY: Patient is not dressing in public clothing ARTICLES SCORE Total number of steps: 0 DRESSING - UPPER BODY - SCORE: 0-UNK DRESSING - LOWER BODY: Patient is not dressing in public clothing ARTICLES SCORE Total number of steps: 0 DRESSING - LOWER BODY - SCORE: 0-UNK TOILETING: TOILETING - STEP 1: Does the patient require the assistance of a person or device, or need extra time with toileting? Yes . TOILETING - STEP 2: Does the patient require the assistance of a helper? Yes. TOILETING - STEP 3: How much assistance does the patient require from the helper? Only supervision TOILETING - SCORE: 5-SUP BLADDER MANAGEMENT: BLADDER MANAGEMENT - STEP 1: Does the patient control the bladder completely and intentionally without equipment or devices or med ications, and is always continent? No. BLADDER MANAGEMENT - STEP 2: Does the patient require the assistance of a helper? Yes. BLADDER MANAGEMENT - STEP 3: How much assistance does the patient require from the helper? Only set-up of equipment - such as plac ing it within reach of the patient or emptying a device - to maintain either satisfactory voiding pat tern or managing an external device, such as an absorbent pad, ileal device, or catheter BLADDER MANAGEMENT - SCORE: 5-SUP BOWEL MANAGEMENT: Colostomy care provided by [facility] (patient performs less than 25% of colostomy care). BOWEL MANAGEMENT - SCORE: 1-DEP TRANSFERS: BED, CHAIR, WHEELCHAIR: Activity did not occur on this shift TRANSFERS: BED, CHAIR, WHEELCHAIR - SCORE: 0-UNK TRANSFERS: TOILET: Activity did not occur on this shift TRANSFERS: TOILET - SCORE: 0-UNK TRANSFERS: SHOWER: Activity did not occur on this shift TRANSFERS: SHOWER - SCORE: 0-UNK TRANSFERS: TUB: Activity did not occur on this shift TRANSFERS: TUB - SCORE: 0-UNK LOCOMOTION: WALK: Activity did not occur on this shift LOCOMOTION: WALK - SCORE: 0-UNK LOCOMOTION: WHEELCHAIR: Activity did not occur on this shift LOCOMOTION: WHEELCHAIR - SCORE: 0-UNK COMPREHENSION: COMPREHENSION: TYPE: Both COMPREHENSION - STEP 1: Does the patient require help from a person or device, or need extra time to understand complex and a bstract ideas (such as current events, finances, discharge planning, medical issues, relationships, e tc)? No. COMPREHENSION - STEP 2: Does the patient need extra time, require an assistive device (such as glasses for visual comprehensi on or a hearing aid for auditory comprehension) or does s/he have mild difficulty understanding compl ex and abstract information? Yes. COMPREHENSION - SCORE: 6-ELEUTERIO EXPRESSION EXPRESSION: TYPE: Both EXPRESSION - STEP 1: Does the patient require help from a person or device, or need extra time expressing complex and abst ract ideas (such as current events, finances, discharge planning, medical issues, relationships, etc) ? No. EXPRESSION - STEP 2: Does the patient need extra time, require an assistive device (such as augmentive communication syste m or a communication board), OR does s/he have mild difficulty expressing complex and abstract ideas (including mild dysarthria or mild word-find problems)? No. EXPRESSION - SCORE: 7-IND SOCIAL INTERACTION: SOCIAL INTERACTION - STEP 1: Does the patient require a helper to interact with others in social and therapeutic situations? No. SOCIAL INTERACTION - STEP 2: Does the patient need extra time in social situations, OR does s/he interact with staff, other patien ts, and family members ONLY in structured environments, OR does s/he require medication for social in teraction? Yes, patient needs extra time SOCIAL INTERACTION - SCORE: 6-ELEUTERIO PROBLEM SOLVING: PROBLEM SOLVING - STEP 1: Does the patient need help from a person or device, or need extra time to solve complex problems such as managing a checking account or confronting interpersonal problems? Yes. PROBLEM SOLVING - STEP 2: Does the patient solve basic routine problems half or more of the time? Yes. PROBLEM SOLVING - STEP 3: How often does the patient need help to solve basic routine problems? 10%-24% of the time PROBLEM SOLVING - SCORE: 4-MIN MEMORY: MEMORY - STEP 1: Does the patient need help from a person or device, or need extra time to remember frequently encount ered people, daily routines, and executing requests? No. MEMORY - STEP 2: Does the patient have slight difficulty recognizing frequently encountered people, daily routines, or executing requests without the need for repetition or using self-initiated or environmental cues to remember? Yes. MEMORY - SCORE: 6-ELEUTERIO SIGNATURE PANEL: The following modified sections: Eating - Score, Grooming - Score, Dressing - Upper Body - Score, Sascha ssing - Lower Body - Score, Toileting - Score, Bladder Management - Score, Bowel Management - Score, Transfers: Bed, Chair, Wheelchair - Score, Transfers: Toilet - Score, Transfers: Shower - Score, Oliveira sfers: Tub - Score, Locomotion: Walk - Score, Locomotion: Wheelchair - Score, Comprehension - Score, Expression - Score, Social Interaction - Score, Problem Solving - Score, Memory - Score were [electro nically] signed by Joyce Damon CNA on SunJul 08 2019 04:03:48 GMT-0500 (Central Daylight Time)
[2019-07-08 05:25] VITALS: BMI 23.9
[2019-07-08] MEDS: LEVOTHYROXINE SOD 0.05 MG TABLET PO SCH (06:54)
[2019-07-08] MEDS: ASPIRIN EC 81 MG TAB PO SCH (07:28)
[2019-07-08] MEDS: ZINC SULFATE 220 MG CAP PO SCH (07:28)
[2019-07-08] MEDS: FUROSEMIDE 20 MG TABLET PO SCH (07:28)
[2019-07-08] MEDS: ALLOPURINOL 300 MG TAB PO SCH (07:28)
[2019-07-08] MEDS: ISOSORBIDE MONO SR 30 MG TAB PO SCH (07:28)
[2019-07-08] MEDS: APIXABAN 2.5 MG TABLET PO SCH ×2 (07:28→20:43)
[2019-07-08] MEDS: ENSURE HIGH PROTEIN 237 ML CAN PO SCH ×3 (07:30→16:12)
[2019-07-08] MEDS: PROMOD 30 ML DOSE PO SCH ×3 (08:00→20:43)
--- NOTE | 2019-07-08 14:21 | FAST ---
ENCOUNTER DATE AND TIME: 07/08/2019 08:00 (CDT) NAME REGGIE AMBROSE DATE OF : 1940 DATE OF ADMISSION: 06/17/2019 17:06 (CDT) PHONE: AGE: 79 SSN# [id number] GENDER: Male ENCOUNTER PHYSICIAN: Dr. Todd Westfall M.D. ADMISSION DIAGNOSIS: - Orthopaedic Disorders 08 - Unilateral Hip Fracture (08.11) Right Femoral Neck Fracture. EATING: Activity did not occur on this shift EATING - SCORE: 0-UNK GROOMING: Activity did not occur on this shift GROOMING - SCORE: 0-UNK BATHING: Activity did not occur on this shift BATHING - SCORE: 0-UNK DRESSING - UPPER BODY: Activity did not occur on this shift Patient is not dressing in public clothing ARTICLES SCORE Total number of steps: 0 DRESSING - UPPER BODY - SCORE: 0-UNK DRESSING - LOWER BODY: Activity did not occur on this shift Patient is not dressing in public clothing ARTICLES SCORE Total number of steps: 0 DRESSING - LOWER BODY - SCORE: 0-UNK TOILETING: Activity did not occur on this shift TOILETING - SCORE: 0-UNK BLADDER MANAGEMENT: Activity did not occur on this shift BLADDER MANAGEMENT - SCORE: 7-IND BOWEL MANAGEMENT: Activity did not occur on this shift BOWEL MANAGEMENT - SCORE: 7-IND TRANSFERS: BED, CHAIR, WHEELCHAIR: TRANSFERS: BED, CHAIR, WHEELCHAIR - STEP 1: Does the patient require assistance of a person or device, or need extra time with bed, chair, or whe elchair transfers? Yes. TRANSFERS: BED, CHAIR, WHEELCHAIR - STEP 2: Does the patient require the assistance of a helper? No. Patient only requires an assistive device fo r bed, chair, wheelchair transfers such as a sliding board, grab bar, or brace, OR s/he takes more th an reasonable time, OR there is a safety concern when s/he performs the transfers TRANSFERS: BED, CHAIR, WHEELCHAIR - SCORE: 6-ELEUTERIO TRANSFERS: TOILET: Activity did not occur on this shift TRANSFERS: TOILET - SCORE: 0-UNK TRANSFERS: SHOWER: Activity did not occur on this shift TRANSFERS: SHOWER - SCORE: 0-UNK TRANSFERS: TUB: Activity did not occur on this shift TRANSFERS: TUB - SCORE: 0-UNK LOCOMOTION: WALK: LOCOMOTION: WALK - STEP 1: Does the patient need help from a person or device, or need extra time to walk 150 feet? No. LOCOMOTION: WALK - STEP 2: Does the patient need an assistive device (such as an orthosis, prosthesis, crutches, or walker) to g o 150 feet, OR does s/he take more than reasonable time, OR is there a concern for safety? Yes, the p atient needs an assistive device LOCOMOTION: WALK - SCORE: 6-ELEUTERIO LOCOMOTION: WHEELCHAIR: Activity did not occur on this shift LOCOMOTION: WHEELCHAIR - SCORE: 0-UNK LOCOMOTION: STAIRS: LOCOMOTION: STAIRS - STEP 1: Does the patient need help to go up and down 12 to 14 stairs? Yes. LOCOMOTION: STAIRS - STEP 2: How much assistance does the patient need from the helper to go a minimum of 12 to 14 stairs? Only rhodes pervision, cuing, or coaxing LOCOMOTION: STAIRS - SCORE: 5-SUP COMPREHENSION: COMPREHENSION - SCORE: 0-UNK EXPRESSION EXPRESSION - SCORE: 0-UNK SOCIAL INTERACTION: SOCIAL INTERACTION - SCORE: 0-UNK PROBLEM SOLVING: PROBLEM SOLVING - SCORE: 0-UNK MEMORY: MEMORY - SCORE: 0-UNK SIGNATURE PANEL: The following modified sections: Transfers: Bed, Chair, Wheelchair - Score, Transfers: Toilet - Score , Locomotion: Walk - Score, Locomotion: Wheelchair - Score, Locomotion: Stairs - Score were [tiffanie verma] signed by Kiley Chester PTA on SunJul 08 2019 14:20:42 T-0500 (Central Daylight Time)
[2019-07-08] MEDS: ATORVASTATIN 40 MG TAB PO SCH (20:43)
--- NOTE | 2019-07-09 02:14 | FAST ---
SHIFT START DATE/TIME: 07/08/2019 19:00 (CDT) SHIFT END DATE/TIME: 07/09/2019 07:00 (CDT) NAME REGGIE AMBROSE DATE OF : 1940 DATE OF ADMISSION: 06/17/2019 17:06 (CDT) PHONE: AGE: 79 N# [id number] GENDER: Male ENCOUNTER PHYSICIAN: Dr. Todd Westfall M.D. ADMISSION DIAGNOSIS: - Orthopaedic Disorders 08 - Unilateral Hip Fracture (08.11) Right Femoral Neck Fracture. EATING: Activity did not occur on this shift EATING - SCORE: 0-UNK GROOMING: Activity did not occur on this shift GROOMING - SCORE: 0-UNK BATHING: Activity did not occur on this shift BATHING - SCORE: 0-UNK DRESSING - UPPER BODY: Patient is not dressing in public clothing ARTICLES SCORE Total number of steps: 0 DRESSING - UPPER BODY - SCORE: 0-UNK DRESSING - LOWER BODY: Patient is not dressing in public clothing ARTICLES SCORE Total number of steps: 0 DRESSING - LOWER BODY - SCORE: 0-UNK TOILETING: TOILETING - STEP 1: Does the patient require the assistance of a person or device, or need extra time with toileting? Yes . TOILETING - STEP 2: Does the patient require the assistance of a helper? Yes. TOILETING - STEP 3: How much assistance does the patient require from the helper? Hands-on assistance from the helper TOILETING - STEP 4: Of the 3 tasks: 1) Adjusting clothing prior to use, 2) Cleansing of perineal area, 3) Adjusting clot barb after use; How many tasks does the patient perform WITHOUT assistance of the helper? Three tasks with steadying assistance from the helper TOILETING - SCORE: 4-MIN BLADDER MANAGEMENT: BLADDER MANAGEMENT - STEP 1: Does the patient control the bladder completely and intentionally without equipment or devices or med ications, and is always continent? No. BLADDER MANAGEMENT - STEP 2: Does the patient require the assistance of a helper? Yes. BLADDER MANAGEMENT - STEP 3: How much assistance does the patient require from the helper? Only supervision, stand-by, cuing, or c oaxing BLADDER MANAGEMENT - SCORE: 5-SUP BOWEL MANAGEMENT: Colostomy care provided by [facility] (patient performs less than 25% of colostomy care). BOWEL MANAGEMENT - SCORE: 1-DEP TRANSFERS: BED, CHAIR, WHEELCHAIR: Activity did not occur on this shift TRANSFERS: BED, CHAIR, WHEELCHAIR - SCORE: 0-UNK TRANSFERS: TOILET: Activity did not occur on this shift TRANSFERS: TOILET - SCORE: 0-UNK TRANSFERS: SHOWER: Activity did not occur on this shift TRANSFERS: SHOWER - SCORE: 0-UNK TRANSFERS: TUB: Activity did not occur on this shift TRANSFERS: TUB - SCORE: 0-UNK LOCOMOTION: WALK: Activity did not occur on this shift LOCOMOTION: WALK - SCORE: 0-UNK LOCOMOTION: WHEELCHAIR: Activity did not occur on this shift LOCOMOTION: WHEELCHAIR - SCORE: 0-UNK COMPREHENSION: COMPREHENSION: TYPE: Both COMPREHENSION - STEP 1: Does the patient require help from a person or device, or need extra time to understand complex and a bstract ideas (such as current events, finances, discharge planning, medical issues, relationships, e tc)? Yes. COMPREHENSION - STEP 2: Does the patient require help to understand questions or statements about basic needs or ideas (such as hunger, thirst, sleep, safety, daily schedule, room location, or discomfort) half or more of the t johnny? No. COMPREHENSION - STEP 3: How often does the patient need help to understand directions and conversation about basic needs? 25% - 49% of the time COMPREHENSION - SCORE: 3-MOD EXPRESSION EXPRESSION: TYPE: Both EXPRESSION - STEP 1: Does the patient require help from a person or device, or need extra time expressing complex and abst ract ideas (such as current events, finances, discharge planning, medical issues, relationships, etc) ? No. EXPRESSION - STEP 2: Does the patient need extra time, require an assistive device (such as augmentive communication syste m or a communication board), OR does s/he have mild difficulty expressing complex and abstract ideas (including mild dysarthria or mild word-find problems)? Yes. EXPRESSION - SCORE: 6-ELEUTERIO SOCIAL INTERACTION: SOCIAL INTERACTION - STEP 1: Does the patient require a helper to interact with others in social and therapeutic situations? No. SOCIAL INTERACTION - STEP 2: Does the patient need extra time in social situations, OR does s/he interact with staff, other patien ts, and family members ONLY in structured environments, OR does s/he require medication for social in teraction? Yes, patient needs extra time SOCIAL INTERACTION - SCORE: 6-ELEUTERIO PROBLEM SOLVING: PROBLEM SOLVING - STEP 1: Does the patient need help from a person or device, or need extra time to solve complex problems such as managing a checking account or confronting interpersonal problems? Yes. PROBLEM SOLVING - STEP 2: Does the patient solve basic routine problems half or more of the time? Yes. PROBLEM SOLVING - STEP 3: How often does the patient need help to solve basic routine problems? 10%-24% of the time PROBLEM SOLVING - SCORE: 4-MIN MEMORY: MEMORY - STEP 1: Does the patient need help from a person or device, or need extra time to remember frequently encount ered people, daily routines, and executing requests? No. MEMORY - STEP 2: Does the patient have slight difficulty recognizing frequently encountered people, daily routines, or executing requests without the need for repetition or using self-initiated or environmental cues to remember? Yes. MEMORY - SCORE: 6-ELEUTERIO SIGNATURE PANEL: The following modified sections: Eating - Score, Grooming - Score, Dressing - Upper Body - Score, Sascha ssing - Lower Body - Score, Toileting - Score, Bladder Management - Score, Bowel Management - Score, Transfers: Bed, Chair, Wheelchair - Score, Transfers: Toilet - Score, Transfers: Shower - Score, Oliveira sfers: Tub - Score, Locomotion: Walk - Score, Locomotion: Wheelchair - Score, Comprehension - Score, Expression - Score, Social Interaction - Score, Problem Solving - Score, Memory - Score were [electro nically] signed by Joyce Damon CNA on SunJul 09 2019 01:25:08 T-0500 (Central Daylight Time)
[2019-07-09] MEDS: LEVOTHYROXINE SOD 0.05 MG TABLET PO SCH (06:57)
[2019-07-09] MEDS: ENSURE HIGH PROTEIN 237 ML CAN PO SCH ×3 (07:30→15:51)
[2019-07-09] MEDS: PROMOD 30 ML DOSE PO SCH ×2 (08:00→20:00)
[2019-07-09] MEDS: ALLOPURINOL 300 MG TAB PO SCH (08:51)
[2019-07-09] MEDS: APIXABAN 2.5 MG TABLET PO SCH ×2 (08:52→20:16)
[2019-07-09] MEDS: ZINC SULFATE 220 MG CAP PO SCH (08:52)
[2019-07-09] MEDS: FUROSEMIDE 20 MG TABLET PO SCH (08:52)
[2019-07-09] MEDS: ASPIRIN EC 81 MG TAB PO SCH (08:52)
[2019-07-09] MEDS: ISOSORBIDE MONO SR 30 MG TAB PO SCH (08:52)
[2019-07-09] MEDS: TRAMADOL HCL 50 MG TAB PO PRN ×3 (08:53→20:15)
--- NOTE | 2019-07-09 12:45 | FAST ---
SHIFT START DATE/TIME: 07/09/2019 07:00 (CDT) SHIFT END DATE/TIME: 07/09/2019 19:00 (CDT) NAME REGGIE AMBROSE DATE OF : 1940 DATE OF ADMISSION: 06/17/2019 17:06 (CDT) PHONE: AGE: 79 N# [id number] GENDER: Male ENCOUNTER PHYSICIAN: Dr. Todd Westfall M.D. ADMISSION DIAGNOSIS: - Orthopaedic Disorders 08 - Unilateral Hip Fracture (08.11) Right Femoral Neck Fracture. EATING: EATING - STEP 1: Does the patient require the assistance of a person or device, or need extra time when eating? Yes. EATING - STEP 2: Does the patient require the assistance of a helper? No, patient only requires an assistive device, O R s/he takes more than reasonable time to eat, OR there is a safety concern, OR s/he requires modifie d food consistency EATING - SCORE: 6-ELEUTERIO GROOMING: Comb/brush hair Oral care GROOMING - STEP 1: Does the patient require the assistance of a person or device, or need extra time when grooming? No. GROOMING - SCORE: 7-IND BATHING: Activity did not occur on this shift BATHING - SCORE: 0-UNK DRESSING - UPPER BODY: Activity did not occur on this shift ARTICLES SCORE Total number of steps: 0 DRESSING - UPPER BODY - SCORE: 0-UNK DRESSING - LOWER BODY: Activity did not occur on this shift ARTICLES SCORE Total number of steps: 0 DRESSING - LOWER BODY - SCORE: 0-UNK TOILETING: TOILETING - STEP 1: Does the patient require the assistance of a person or device, or need extra time with toileting? Yes . TOILETING - STEP 2: Does the patient require the assistance of a helper? Yes. TOILETING - STEP 3: How much assistance does the patient require from the helper? Hands-on assistance from the helper TOILETING - STEP 4: Of the 3 tasks: 1) Adjusting clothing prior to use, 2) Cleansing of perineal area, 3) Adjusting clot barb after use; How many tasks does the patient perform WITHOUT assistance of the helper? Two tasks TOILETING - SCORE: 3-MOD BLADDER MANAGEMENT: BLADDER MANAGEMENT - STEP 1: Does the patient control the bladder completely and intentionally without equipment or devices or med ications, and is always continent? No. BLADDER MANAGEMENT - STEP 2: Does the patient require the assistance of a helper? No, patient requires and independently uses an a ssistive device, such as a urinal, bedpan, bedside commode, catheter, absorbent pad, or collecting de vice BLADDER MANAGEMENT - SCORE: 6-ELEUTERIO BOWEL MANAGEMENT: Activity did not occur on this shift BOWEL MANAGEMENT - SCORE: 7-IND TRANSFERS: BED, CHAIR, WHEELCHAIR: TRANSFERS: BED, CHAIR, WHEELCHAIR - STEP 1: Does the patient require assistance of a person or device, or need extra time with bed, chair, or whe elchair transfers? Yes. TRANSFERS: BED, CHAIR, WHEELCHAIR - STEP 2: Does the patient require the assistance of a helper? Yes. TRANSFERS: BED, CHAIR, WHEELCHAIR - STEP 3: How much assistance does the patient require from the helper? Steadying/guiding assistance TRANSFERS: BED, CHAIR, WHEELCHAIR - SCORE: 4-MIN TRANSFERS: TOILET: TRANSFERS: TOILET - STEP 1: Does the patient require the assistance of a person or device, or need extra time with toilet transfe rs? Yes. TRANSFERS: TOILET - STEP 2: Does the patient require the assistance of a helper? Yes. TRANSFERS: TOILET - STEP 3: How much assistance does the patient require from the helper? Only supervision, cuing, coaxing, OR he lp to set out transfer equipment or to lock brakes and/or lift foot rests TRANSFERS: TOILET - SCORE: 5-SUP TRANSFERS: SHOWER: Activity did not occur on this shift TRANSFERS: SHOWER - SCORE: 0-UNK TRANSFERS: TUB: Activity did not occur on this shift TRANSFERS: TUB - SCORE: 0-UNK LOCOMOTION: WALK: Activity did not occur on this shift LOCOMOTION: WALK - SCORE: 0-UNK LOCOMOTION: WHEELCHAIR: Activity did not occur on this shift LOCOMOTION: WHEELCHAIR - SCORE: 0-UNK COMPREHENSION: COMPREHENSION: TYPE: Both COMPREHENSION - STEP 1: Does the patient require help from a person or device, or need extra time to understand complex and a bstract ideas (such as current events, finances, discharge planning, medical issues, relationships, e tc)? No. COMPREHENSION - STEP 2: Does the patient need extra time, require an assistive device (such as glasses for visual comprehensi on or a hearing aid for auditory comprehension) or does s/he have mild difficulty understanding compl ex and abstract information? Yes. COMPREHENSION - SCORE: 6-ELEUTERIO EXPRESSION EXPRESSION: TYPE: Both EXPRESSION - STEP 1: Does the patient require help from a person or device, or need extra time expressing complex and abst ract ideas (such as current events, finances, discharge planning, medical issues, relationships, etc) ? No. EXPRESSION - STEP 2: Does the patient need extra time, require an assistive device (such as augmentive communication syste m or a communication board), OR does s/he have mild difficulty expressing complex and abstract ideas (including mild dysarthria or mild word-find problems)? Yes. EXPRESSION - SCORE: 6-ELEUTERIO SOCIAL INTERACTION: SOCIAL INTERACTION - STEP 1: Does the patient require a helper to interact with others in social and therapeutic situations? No. SOCIAL INTERACTION - STEP 2: Does the patient need extra time in social situations, OR does s/he interact with staff, other patien ts, and family members ONLY in structured environments, OR does s/he require medication for social in teraction? Yes, patient needs extra time SOCIAL INTERACTION - SCORE: 6-ELEUTERIO PROBLEM SOLVING: PROBLEM SOLVING - STEP 1: Does the patient need help from a person or device, or need extra time to solve complex problems such as managing a checking account or confronting interpersonal problems? No. PROBLEM SOLVING - STEP 2: Does the patient require extra time to make decisions or solve problems, OR does s/he have slight dif ficulty reading, initiating, or self-correcting in unfamiliar situations? Yes, patient needs extra ti me. PROBLEM SOLVING - SCORE: 6-ELEUTERIO MEMORY: MEMORY - STEP 1: Does the patient need help from a person or device, or need extra time to remember frequently encount ered people, daily routines, and executing requests? Yes. MEMORY - STEP 2: How often does the patient need help to remember frequently encountered people, daily routines, and e xecuting requests? Less than 10% of the time MEMORY - SCORE: 5-SUP SIGNATURE PANEL: The following modified sections: Eating - Score, Grooming - Score, Bathing - Score, Dressing - Upper Body - Score, Dressing - Lower Body - Score, Toileting - Score, Bladder Management - Score, Bowel Man agement - Score, Transfers: Bed, Chair, Wheelchair - Score, Transfers: Toilet - Score, Transfers: Crystal wer - Score, Transfers: Tub - Score, Locomotion: Walk - Score, Locomotion: Wheelchair - Score, Compre hension - Score, Expression - Score, Social Interaction - Score, Problem Solving - Score, Memory - Sc ore were [electronically] signed by Rai Pate on SunJul 09 2019 12:43:35 GMT-0500 (Central Daylight Time)
--- NOTE | 2019-07-09 15:01 | FAST ---
ENCOUNTER DATE AND TIME: 07/09/2019 08:00 (CDT) NAME REGGIE AMBROSE DATE OF : 1940 DATE OF ADMISSION: 06/17/2019 17:06 (CDT) PHONE: AGE: 79 SSN# [id number] GENDER: Male ENCOUNTER PHYSICIAN: Dr. Todd Westfall M.D. ADMISSION DIAGNOSIS: - Orthopaedic Disorders 08 - Unilateral Hip Fracture (08.11) Right Femoral Neck Fracture. EATING: Activity did not occur on this shift EATING - SCORE: 0-UNK GROOMING: Activity did not occur on this shift GROOMING - SCORE: 0-UNK BATHING: Activity did not occur on this shift BATHING - SCORE: 0-UNK DRESSING - UPPER BODY: Activity did not occur on this shift Patient is not dressing in public clothing ARTICLES SCORE Total number of steps: 0 DRESSING - UPPER BODY - SCORE: 0-UNK DRESSING - LOWER BODY: Activity did not occur on this shift Patient is not dressing in public clothing ARTICLES SCORE Total number of steps: 0 DRESSING - LOWER BODY - SCORE: 0-UNK TOILETING: Activity did not occur on this shift TOILETING - SCORE: 0-UNK BLADDER MANAGEMENT: Activity did not occur on this shift BLADDER MANAGEMENT - SCORE: 7-IND BOWEL MANAGEMENT: Activity did not occur on this shift BOWEL MANAGEMENT - SCORE: 7-IND TRANSFERS: BED, CHAIR, WHEELCHAIR: TRANSFERS: BED, CHAIR, WHEELCHAIR - STEP 1: Does the patient require assistance of a person or device, or need extra time with bed, chair, or whe elchair transfers? Yes. TRANSFERS: BED, CHAIR, WHEELCHAIR - STEP 2: Does the patient require the assistance of a helper? No. Patient only requires an assistive device fo r bed, chair, wheelchair transfers such as a sliding board, grab bar, or brace, OR s/he takes more th an reasonable time, OR there is a safety concern when s/he performs the transfers TRANSFERS: BED, CHAIR, WHEELCHAIR - SCORE: 6-ELEUTERIO TRANSFERS: TOILET: Activity did not occur on this shift TRANSFERS: TOILET - SCORE: 0-UNK TRANSFERS: SHOWER: Activity did not occur on this shift TRANSFERS: SHOWER - SCORE: 0-UNK TRANSFERS: TUB: Activity did not occur on this shift TRANSFERS: TUB - SCORE: 0-UNK LOCOMOTION: WALK: LOCOMOTION: WALK - STEP 1: Does the patient need help from a person or device, or need extra time to walk 150 feet? No. LOCOMOTION: WALK - STEP 2: Does the patient need an assistive device (such as an orthosis, prosthesis, crutches, or walker) to g o 150 feet, OR does s/he take more than reasonable time, OR is there a concern for safety? Yes, the p atient needs an assistive device LOCOMOTION: WALK - SCORE: 6-ELEUTERIO LOCOMOTION: WHEELCHAIR: Activity did not occur on this shift LOCOMOTION: WHEELCHAIR - SCORE: 0-UNK LOCOMOTION: STAIRS: Activity did not occur on this shift LOCOMOTION: STAIRS - SCORE: 0-UNK COMPREHENSION: COMPREHENSION - SCORE: 0-UNK EXPRESSION EXPRESSION - SCORE: 0-UNK SOCIAL INTERACTION: SOCIAL INTERACTION - SCORE: 0-UNK PROBLEM SOLVING: PROBLEM SOLVING - SCORE: 0-UNK MEMORY: MEMORY - SCORE: 0-UNK SIGNATURE PANEL: The following modified sections: Transfers: Bed, Chair, Wheelchair - Score, Transfers: Toilet - Score , Locomotion: Walk - Score, Locomotion: Wheelchair - Score, Locomotion: Stairs - Score were [electron luci] signed by Miguel Reed PTA on SunJul 09 2019 15:01:04 GMT-0500 (Central Daylight Time)
--- NOTE | 2019-07-09 15:19 | RAD REPORT ---
EXAM DESCRIPTION: RAD - Barium Swallow Modified - 07/09/2019 3:12 pm CLINICAL HISTORY: Dysphagia COMPARISON: <Comparisons> TECHNIQUE: The patient was given liquid, semi-solid and solid forms of barium. Lateral view fluorosc opic imaging was performed in conjunction with speech pathology service. FINDINGS: Laryngeal penetration: cleared with thin liquids. Pharyngeal residue: Vallecular, moderate to severe with nectar, honey, pudding and jeannette cracker. P yriform was mild with nectar, honey, puree, chewable solids. mildly decreased UES relaxation. Mildly delayed pharyngeal transit time. Minimal (trace) lower esop hageal retention. Total fluoroscopy time: 3 minutes and 11 seconds
[2019-07-09] MEDS: ATORVASTATIN 40 MG TAB PO SCH (20:15)
[2019-07-09] MEDS: MELATONIN 5 MG TABLET PO PRN (22:39)
--- NOTE | 2019-07-10 02:51 | FAST ---
SHIFT START DATE/TIME: 07/09/2019 19:00 (CDT) SHIFT END DATE/TIME: 07/10/2019 07:00 (CDT) NAME REGGIE AMBROSE DATE OF : 1940 DATE OF ADMISSION: 06/17/2019 17:06 (CDT) PHONE: AGE: 79 N# [id number] GENDER: Male ENCOUNTER PHYSICIAN: Dr. Todd Westfall M.D. ADMISSION DIAGNOSIS: - Orthopaedic Disorders 08 - Unilateral Hip Fracture (08.11) Right Femoral Neck Fracture. EATING: Activity did not occur on this shift EATING - SCORE: 0-UNK GROOMING: Activity did not occur on this shift GROOMING - SCORE: 0-UNK BATHING: Activity did not occur on this shift BATHING - SCORE: 0-UNK DRESSING - UPPER BODY: Patient is not dressing in public clothing ARTICLES SCORE Total number of steps: 0 DRESSING - UPPER BODY - SCORE: 0-UNK DRESSING - LOWER BODY: Patient is not dressing in public clothing ARTICLES SCORE Total number of steps: 0 DRESSING - LOWER BODY - SCORE: 0-UNK TOILETING: TOILETING - STEP 1: Does the patient require the assistance of a person or device, or need extra time with toileting? Yes . TOILETING - STEP 2: Does the patient require the assistance of a helper? Yes. TOILETING - STEP 3: How much assistance does the patient require from the helper? Only supervision TOILETING - SCORE: 5-SUP BLADDER MANAGEMENT: BLADDER MANAGEMENT - STEP 1: Does the patient control the bladder completely and intentionally without equipment or devices or med ications, and is always continent? No. BLADDER MANAGEMENT - STEP 2: Does the patient require the assistance of a helper? Yes. BLADDER MANAGEMENT - STEP 3: How much assistance does the patient require from the helper? Only set-up of equipment - such as plac ing it within reach of the patient or emptying a device - to maintain either satisfactory voiding pat tern or managing an external device, such as an absorbent pad, ileal device, or catheter BLADDER MANAGEMENT - SCORE: 5-SUP BOWEL MANAGEMENT: Colostomy care provided by [facility] (patient performs less than 25% of colostomy care). BOWEL MANAGEMENT - SCORE: 1-DEP TRANSFERS: BED, CHAIR, WHEELCHAIR: Activity did not occur on this shift TRANSFERS: BED, CHAIR, WHEELCHAIR - SCORE: 0-UNK TRANSFERS: TOILET: Activity did not occur on this shift TRANSFERS: TOILET - SCORE: 0-UNK TRANSFERS: SHOWER: Activity did not occur on this shift TRANSFERS: SHOWER - SCORE: 0-UNK TRANSFERS: TUB: Activity did not occur on this shift TRANSFERS: TUB - SCORE: 0-UNK LOCOMOTION: WALK: Activity did not occur on this shift LOCOMOTION: WALK - SCORE: 0-UNK LOCOMOTION: WHEELCHAIR: Activity did not occur on this shift LOCOMOTION: WHEELCHAIR - SCORE: 0-UNK COMPREHENSION: COMPREHENSION: TYPE: Both COMPREHENSION - STEP 1: Does the patient require help from a person or device, or need extra time to understand complex and a bstract ideas (such as current events, finances, discharge planning, medical issues, relationships, e tc)? No. COMPREHENSION - STEP 2: Does the patient need extra time, require an assistive device (such as glasses for visual comprehensi on or a hearing aid for auditory comprehension) or does s/he have mild difficulty understanding compl ex and abstract information? Yes. COMPREHENSION - SCORE: 6-ELEUTERIO EXPRESSION EXPRESSION: TYPE: Both EXPRESSION - STEP 1: Does the patient require help from a person or device, or need extra time expressing complex and abst ract ideas (such as current events, finances, discharge planning, medical issues, relationships, etc) ? No. EXPRESSION - STEP 2: Does the patient need extra time, require an assistive device (such as augmentive communication syste m or a communication board), OR does s/he have mild difficulty expressing complex and abstract ideas (including mild dysarthria or mild word-find problems)? Yes. EXPRESSION - SCORE: 6-ELEUTERIO SOCIAL INTERACTION: SOCIAL INTERACTION - STEP 1: Does the patient require a helper to interact with others in social and therapeutic situations? No. SOCIAL INTERACTION - STEP 2: Does the patient need extra time in social situations, OR does s/he interact with staff, other patien ts, and family members ONLY in structured environments, OR does s/he require medication for social in teraction? Yes, patient needs extra time SOCIAL INTERACTION - SCORE: 6-ELEUTERIO PROBLEM SOLVING: PROBLEM SOLVING - STEP 1: Does the patient need help from a person or device, or need extra time to solve complex problems such as managing a checking account or confronting interpersonal problems? Yes. PROBLEM SOLVING - STEP 2: Does the patient solve basic routine problems half or more of the time? Yes. PROBLEM SOLVING - STEP 3: How often does the patient need help to solve basic routine problems? 25%-49% of the time PROBLEM SOLVING - SCORE: 3-MOD MEMORY: MEMORY - STEP 1: Does the patient need help from a person or device, or need extra time to remember frequently encount ered people, daily routines, and executing requests? No. MEMORY - STEP 2: Does the patient have slight difficulty recognizing frequently encountered people, daily routines, or executing requests without the need for repetition or using self-initiated or environmental cues to remember? Yes. MEMORY - SCORE: 6-ELEUTERIO SIGNATURE PANEL: The following modified sections: Eating - Score, Grooming - Score, Dressing - Upper Body - Score, Sascha ssing - Lower Body - Score, Toileting - Score, Bladder Management - Score, Bowel Management - Score, Transfers: Bed, Chair, Wheelchair - Score, Transfers: Toilet - Score, Transfers: Shower - Score, Oliveira sfers: Tub - Score, Locomotion: Walk - Score, Locomotion: Wheelchair - Score, Comprehension - Score, Expression - Score, Social Interaction - Score, Problem Solving - Score, Memory - Score were [electro nically] signed by Joyce Damon CNA on SunJul 10 2019 02:50:28 GMT-0500 (Central Daylight Time)
[2019-07-10] MEDS: LEVOTHYROXINE SOD 0.05 MG TABLET PO SCH (05:09)
[2019-07-10 06:15] LABS: Absolute Lymphocytes (CBC) 1.1 K/uL (0.7-4.9); Basophils % 1.1 % (0-1.3); Lymphocytes % 18.5 % (15.3-44.8); MPV 9.5 fL (7.6-11.3); RBC Red Blood Cell Count 2.95 M/uL (4.33-5.43)
[2019-07-10 06:42] VITALS: BP 96/65; TEMP 97.4
[2019-07-10 06:42] LABS: Albumin 2.8 g/dL (3.4-5.0); Potassium 5.1 mmol/L (3.5-5.1); Prealbumin 7.2 mg/dL (20-40)
[2019-07-10] MEDS: ENSURE HIGH PROTEIN 237 ML CAN PO SCH ×2 (07:20→11:30)
[2019-07-10 07:38] LABS: Blood Morphology Comment NOT SEEN (NOT SEEN); Platelet Estimate DECR
[2019-07-10] MEDS: PROMOD 30 ML DOSE PO SCH (08:00)
[2019-07-10] MEDS: TRAMADOL HCL 50 MG TAB PO PRN (09:02)
[2019-07-10] MEDS: ISOSORBIDE MONO SR 30 MG TAB PO SCH (09:04)
[2019-07-10] MEDS: ASPIRIN EC 81 MG TAB PO SCH (09:04)
[2019-07-10] MEDS: APIXABAN 2.5 MG TABLET PO SCH (09:05)
[2019-07-10] MEDS: ALLOPURINOL 300 MG TAB PO SCH (09:06)
[2019-07-10] MEDS: ZINC SULFATE 220 MG CAP PO SCH (09:06)
[2019-07-10] MEDS: FUROSEMIDE 20 MG TABLET PO SCH (09:06)
--- NOTE | 2019-07-10 16:22 | FAST ---
ENCOUNTER DATE AND TIME: 07/10/2019 08:00 (CDT) NAME REGGIE AMBROSE DATE OF : 1940 DATE OF ADMISSION: 06/17/2019 17:06 (CDT) PHONE: AGE: 79 SSN# [id number] GENDER: Male ENCOUNTER PHYSICIAN: Dr. Todd Westfall M.D. ADMISSION DIAGNOSIS: - Orthopaedic Disorders 08 - Unilateral Hip Fracture (08.11) Right Femoral Neck Fracture. EATING: Activity did not occur on this shift EATING - SCORE: 0-UNK GROOMING: Activity did not occur on this shift GROOMING - SCORE: 0-UNK BATHING: Activity did not occur on this shift BATHING - SCORE: 0-UNK DRESSING - UPPER BODY: Activity did not occur on this shift Patient is not dressing in public clothing ARTICLES SCORE Total number of steps: 0 DRESSING - UPPER BODY - SCORE: 0-UNK DRESSING - LOWER BODY: Activity did not occur on this shift Patient is not dressing in public clothing ARTICLES SCORE Total number of steps: 0 DRESSING - LOWER BODY - SCORE: 0-UNK TOILETING: Activity did not occur on this shift TOILETING - SCORE: 0-UNK BLADDER MANAGEMENT: Activity did not occur on this shift BLADDER MANAGEMENT - SCORE: 7-IND BOWEL MANAGEMENT: Activity did not occur on this shift BOWEL MANAGEMENT - SCORE: 7-IND TRANSFERS: BED, CHAIR, WHEELCHAIR: TRANSFERS: BED, CHAIR, WHEELCHAIR - STEP 1: Does the patient require assistance of a person or device, or need extra time with bed, chair, or whe elchair transfers? Yes. TRANSFERS: BED, CHAIR, WHEELCHAIR - STEP 2: Does the patient require the assistance of a helper? No. Patient only requires an assistive device fo r bed, chair, wheelchair transfers such as a sliding board, grab bar, or brace, OR s/he takes more th an reasonable time, OR there is a safety concern when s/he performs the transfers TRANSFERS: BED, CHAIR, WHEELCHAIR - SCORE: 6-ELEUTERIO TRANSFERS: TOILET: Activity did not occur on this shift TRANSFERS: TOILET - SCORE: 0-UNK TRANSFERS: SHOWER: Activity did not occur on this shift TRANSFERS: SHOWER - SCORE: 0-UNK TRANSFERS: TUB: Activity did not occur on this shift TRANSFERS: TUB - SCORE: 0-UNK LOCOMOTION: WALK: LOCOMOTION: WALK - STEP 1: Does the patient need help from a person or device, or need extra time to walk 150 feet? No. LOCOMOTION: WALK - STEP 2: Does the patient need an assistive device (such as an orthosis, prosthesis, crutches, or walker) to g o 150 feet, OR does s/he take more than reasonable time, OR is there a concern for safety? Yes, the p atient needs an assistive device LOCOMOTION: WALK - SCORE: 6-ELEUTERIO LOCOMOTION: WHEELCHAIR: Activity did not occur on this shift LOCOMOTION: WHEELCHAIR - SCORE: 0-UNK LOCOMOTION: STAIRS: Activity did not occur on this shift LOCOMOTION: STAIRS - SCORE: 0-UNK COMPREHENSION: COMPREHENSION - SCORE: 0-UNK EXPRESSION EXPRESSION - SCORE: 0-UNK SOCIAL INTERACTION: SOCIAL INTERACTION - SCORE: 0-UNK PROBLEM SOLVING: PROBLEM SOLVING - SCORE: 0-UNK MEMORY: MEMORY - SCORE: 0-UNK SIGNATURE PANEL: The following modified sections: Transfers: Bed, Chair, Wheelchair - Score, Transfers: Toilet - Score , Locomotion: Walk - Score, Locomotion: Wheelchair - Score, Locomotion: Stairs - Score were [electron [email or web address]] signed by Ayan Flowers PT on SunJul 10 2019 16:21:29 T-0500 (Central Daylight Time)
== END 2019-07-10 14:00 | disposition home or self-care (01) | DRG 561 ==
LOC: 5TH 17:06
PROVIDERS: ADMIT Psychiatry & Neurology Neurology with Special Qualifications in Child Neurology; ATTEND Psychiatry & Neurology Neurology with Special Qualifications in Child Neurology
DX: S72.141D Displaced intertrochanteric fracture of right femur, subsequent encounter for closed fracture with routine healing (principal); J44.9 Chronic obstructive pulmonary disease, unspecified; J98.6 Disorders of diaphragm; E78.5 Hyperlipidemia, unspecified; I25.10 Atherosclerotic heart disease of native coronary artery without angina pectoris
CPT/HCPCS: 36415; 71045; 74230; 80048; 80053; 81001; 82040; 83735; 84100; 84134; 84156; 85025; 87086; 87088; 92611; 97110; 97112; 97116; 97161; 97530; J1650; J7030; P9047

== ENCOUNTER 2019-07-24 10:35 | Emergency (ER) | payer OTHER ==
--- OUTSIDE RECORDS SUMMARY | 2019-07-24 10:38 | XMS REPORT | Clinical Summary ---
:1940 Author Organization [facility] Address [address] [place] [address] Care Team Providers Name Role Phone Jaspal [...] by 1 10/11/2018 Active (PROTONIX) 40 MG mouth daily. EC tablet aspirin (ECOTRIN) Take 81 mg by 0 Active 81 MG enteric mouth daily. coated tablet lisinopril Take 1 tablet 60 tablet 0 01/23/2019 01/23/20 Active (PRINIVIL,ZESTRIL) (2.5 mg total) 20 2.5 mg tablet by mouth 2 (two) times a day. levothyroxine Take 1 tablet 30 tablet 0 01/24/2019 01/24/20 Active (SYNTHROID, (50 mcg total) 20 LEVOXYL) 50 mcg by mouth tablet daily. isosorbide Take 0.5 15 tablet 0 01/24/2019 01/24/20 Active mononitrate tablets (15 mg 20 (IMDUR) 30 MG 24 total) by hr tablet mouth every morning. zinc sulfate Take 1 capsule 30 capsule 0 01/24/2019 01/24/20 Active (ZINCATE) 220 (50) (220 mg total) 20 mg capsule by mouth daily. metoprolol TAKE 1/2 3 08/21/2018 01/24/20 Discontinued tartrate TABLET BY 19 (Stop Taking at (LOPRESSOR) 100 mg MOUTH 2 TIMES Discharge) tablet EVERY DAY isosorbide Take 30 mg by 0 01/24/20 Discontinued mononitrate mouth every 19 (Stop Taking at (IMDUR) 30 MG 24 morning. Discharge) hr tablet SUPREP BOWEL PREP Take 2 Bottles 354 mL 0 11/13/2018 11/13/19 KIT 17.5-3.13-1.6 (354 mL total) 19 gram recon soln by mouth once for 1 dose. Take as directed by physician traMADol (ULTRAM) Take 1 tablet 30 tablet 0 11/26/2018 12/01/19 50 mg tablet (50 mg total) 19 by mouth every 6 (six) hours as needed for severe pain for up to 5 days. carvedilol (COREG) Take 1 tablet 60 tablet 0 01/23/2019 02/23/20 3.125 MG tablet (3.125 mg 19 total) by mouth 2 (two) times a day for 30 days. amIODarone Take 1 tablet 30 tablet 0 01/24/2019 02/24/20 (PACERONE) 200 MG (200 mg total) 19 tablet by mouth daily for 30 days. apixaban (ELIQUIS) Take 1 tablet 60 tablet 0 01/23/2019 02/23/20 2.5 mg tablet (2.5 mg total) 19 by mouth 2 (two) times a day for 30 days. sulfamethoxazole-t Take 1 tablet 12 tablet 0 01/23/2019 01/30/20 rimethoprim by mouth every 19 (BACTRIM DS) 12 (twelve) 800-160 mg per hours for 6 tablet days. metroNIDAZOLE Take 1 tablet 18 tablet 0 01/23/2019 01/30/20 (FLAGYL) 500 MG (500 mg total) 19 tablet by mouth 3 (three) times a [...] Quality Tayler Howell RN 01/20/2019 Surgery Procedural HustLuis, CV LEFT HEART CATH Cardiology MD BENIGNO KATE WITH CORS [38209 (CPT)] 01/10/2019 - Hospital Encounter Nephrology Nayely Flood, Anemia due to acute blood loss (Primary Dx); 01/23/2019 MD Nuñez; Coronary artery disease without angina pectoris, unspecified vessel or lesion type, unspecified whether chinik or transplanted heart; Pulmonary hypertension (HCC) 01/09/2019 Intake Access N/A 12/02/2018 Intake Access N/A 11/22/2018 Anesthesia Event General Surgery Rodrigo Oates MD Agbeve, Irene Esinam, AMANDA 11/22/2018 Surgery General Surgery Jonn Mora DIAGNOSTIC MD Toño LAPAROSCOPY, REVISION OF ANASTOMOSIS, DRAINAGE OF HEMATOMA 11/21/2018 Anesthesia Event General Surgery Felipe Trejo MD Jatzlau, Amybeth, ELDERLY CAREGIVER 11/21/2018 Surgery General Surgery Jonn Mora SINGLE INCISION MD Toño LAPAROSCOPIC RIGHT COLECTOMY 11/21/2018 - Hospital Encounter General Surgery Lobito Yañez 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) Jonn Mora MD 11/15/2018 Pre-Admit Testing Pre-Admission Jonn Mora Preop testing Appointment Testing MD Toño (Primary Dx) 11/13/2018 Orders Only General Surgery Jonn Mora MD 10/30/2018 Orders Only General Surgery Jonn Mora MD 10/24/2018 Pre-Admit Testing Pre-Admission Jonn Mora Preop testing Appointment Testing MD Toño (Primary Dx) 10/24/2018 Office Visit General Surgery Jonn Mora Malignant neoplasm MD Toño of ascending colon ([facility]) (Primary Dx) after 07/23/2018 Family History Medical History Relation Name Comments [...] Vital Signs Vital Sign Reading Time Taken Comments Blood Pressure 106/59 04/10/2019 2:21 PM CDT Pulse 99 04/10/2019 2:21 PM CDT Temperature 36.6 C (97.8 F) 04/10/2019 2:21 PM CDT Respiratory Rate 18 01/23/2019 12:16 PM CDT Oxygen Saturation 95% 01/23/2019 11:44 AM CDT Inhaled Oxygen Concentration - - Weight 70.5 kg (155 lb 6.8 oz) 01/10/2019 3:00 [facility] Height 185.4 cm (6' 1") 01/10/2019 3:00 AM [facility] Body Mass Index 20.51 01/10/2019 3:00 AM [facility] Plan of Treatment Health Maintenance Due Date [...] vessel section. or lesion type, unspecified whether chinik or transplanted heart Pulmonary hypertension (HCC) ESTIMATED [...] Routine 01/18/2019 5:28 Results for this PM [facility] procedure are in the results section. POC GLUCOSE Routine 01/18/2019 11:48 Results for this AM [facility] procedure are in the results section. POC GLUCOSE Routine 01/18/2019 7:40 Results for this AM [facility] procedure are in the results section. ESTIMATED GFR Routine 01/18/2019 4:52 Results for this AM [facility] procedure are in the results section. PARTIAL THROMBOPLASTIN Routine 01/18/2019 4:52 Results for this TIME (PTT) [facility] procedure are in the results section. PROTHROMBIN TIME WITH Routine 01/18/2019 4:52 Results for this INR AM [facility] procedure are in the results section. COMPREHENSIVE METABOLIC Routine 01/18/2019 4:52 Results for this PANEL [facility] procedure are in the results section. B NATRIURETIC PEPTIDE Routine 01/18/2019 4:52 Results for this AM [facility] procedure are in the results section. POC GLUCOSE Routine 01/17/2019 9:31 Results for this PM [facility] procedure are in the results section. HC COMPLETE BLD COUNT Routine 01/17/2019 4:40 Results for this W/AUTO DIFF AM [facility] procedure are in the results section. ESTIMATED GFR Routine 01/17/2019 4:00 Results for this AM [facility] procedure are in the results section. MAGNESIUM LEVEL Routine 01/17/2019 4:00 Results for this AM [facility] procedure are in the results section. BASIC METABOLIC PANEL Routine 01/17/2019 4:00 Results for this AM [facility] procedure are in the results section. CONSULT TO OSTOMY CARE Routine 01/16/2019 4:32 NURSE PM [facility] ECHOCARDIOGRAM 2D Routine 01/16/2019 12:25 Results for this LIMITED PM [facility] procedure are in the results section. B NATRIURETIC PEPTIDE Routine 01/16/2019 6:05 Results for this AM [facility] procedure are in the results section. ESTIMATED GFR Routine 01/16/2019 4:00 Results for this [facility] procedure are in the results section. BASIC METABOLIC PANEL Routine 01/16/2019 4:00 Results for this AM [facility] procedure are in the results section. MAGNESIUM LEVEL Routine 01/16/2019 4:00 Results for this AM [facility] procedure are in the results section. VANCOMYCIN LEVEL, TROUGH Routine 01/16/2019 4:00 Results for this AM [facility] procedure are in the results section. POC GLUCOSE Routine 01/15/2019 5:53 Results for this [facility] [facility] procedure are in the results section. POC GLUCOSE Routine 01/15/2019 12:02 Results for this PM [facility] procedure are in the results section. ECG 12-LEAD Routine 01/15/2019 8:20 Results for this [facility] procedure are in the results section. POC GLUCOSE Routine 01/15/2019 7:58 Results for this AM [facility] procedure are in the results section. ESTIMATED GFR Routine 01/15/2019 5:10 Results for this AM [facility] procedure are in the results section. MAGNESIUM LEVEL Routine 01/15/2019 5:10 Results for this AM [facility] procedure are in the results section. BASIC METABOLIC PANEL Routine 01/15/2019 5:10 Results for this AM [facility] procedure are in the results section. POC GLUCOSE Routine 01/14/2019 8:53 Results for this PM [facility] procedure are in the results section. POC GLUCOSE Routine 01/14/2019 5:43 Results for this PM [facility] procedure are in the results section. POC GLUCOSE Routine 01/14/2019 11:59 Results for this AM [facility] procedure are in the results section. VANCOMYCIN LEVEL, TROUGH Routine 01/14/2019 11:05 Results for this [facility] procedure are in the results section. GRAM STAIN Routine 01/14/2019 11:05 Results for this [facility] procedure are in the results section. AEROBIC CULTURE Routine 01/14/2019 11:05 Results for this [facility] procedure are in the results section. ANAEROBIC CULTURE Routine 01/14/2019 10:05 Results for this [facility] procedure are in the results section. POC GLUCOSE Routine 01/14/2019 7:59 Results for this [facility] procedure are in the results section. B NATRIURETIC PEPTIDE Routine 01/14/2019 5:00 Results for this [facility] procedure are in the results section. HC COMPLETE BLD COUNT Routine 01/14/2019 5:00 Results for this W/AUTO DIFF AM [facility] procedure are in the results section. ESTIMATED GFR Routine 01/14/2019 4:00 Results for this AM [facility] procedure are in the results section. BASIC METABOLIC PANEL Routine 01/14/2019 4:00 Results for this [facility] procedure are in the results section. HIV AG/AB COMBINATION Routine 01/14/2019 4:00 Results for this [facility] procedure are in the results section. POC GLUCOSE Routine 01/13/2019 8:40 Results for this PM [facility] procedure are in the results section. POC GLUCOSE Routine 01/13/2019 6:02 Results for this PM [facility] procedure are in the results section. POC GLUCOSE Routine 01/13/2019 12:16 Results for this [facility] procedure are in the results section. US CAROTID DUPLEX Routine 01/13/2019 9:45 Results for this BILATERAL [facility] procedure are in the results section. POC GLUCOSE Routine 01/13/2019 7:51 Results for this AM [facility] procedure are in the results section. ESTIMATED GFR Routine 01/13/2019 3:30 Results for this [facility] procedure are in the results section. VITAMIN B12 LEVEL Routine 01/13/2019 3:30 Results for this [facility] procedure are in the results section. TOTAL IRON BINDING Routine 01/13/2019 3:30 Results for this CAPACITY [facility] procedure are in the results section. RETICULOCYTE COUNT Routine 01/13/2019 3:30 Results for this AM [facility] procedure are in the results section. FOLATE LEVEL Routine 01/13/2019 3:30 Results for this AM [facility] procedure are in the results section. PHOSPHORUS LEVEL Routine 01/13/2019 3:30 Results for this AM [facility] procedure are in the results section. MAGNESIUM LEVEL Routine 01/13/2019 3:30 Results for this AM [facility] procedure are in the results section. CBC WITH PLATELET AND Routine 01/13/2019 3:30 Results for this DIFFERENTIAL [facility] procedure are in the results section. BASIC METABOLIC PANEL Routine 01/13/2019 3:30 Results for this AM [facility] procedure are in the results section. POC GLUCOSE Routine 01/12/2019 8:54 Results for this PM [facility] procedure are in the results section. ESTIMATED GFR Timed 01/12/2019 7:30 Results for this [facility] procedure are in the results section. MAGNESIUM LEVEL Timed 01/12/2019 7:30 Results for this [facility] procedure are in the results section. BASIC METABOLIC PANEL Timed 01/12/2019 7:30 Results for this [facility] procedure are in the results section. POC GLUCOSE Routine 01/12/2019 12:13 Results for this PM [facility] procedure are in the results section. POC GLUCOSE Routine 01/12/2019 8:05 Results for this AM [facility] procedure are in the results section. ESTIMATED GFR Routine 01/12/2019 5:50 Results for this AM [facility] procedure are in the results section. COMPREHENSIVE METABOLIC Routine 01/12/2019 5:50 Results for this PANEL [facility] procedure are in the results section. HC COMPLETE BLD COUNT Routine 01/12/2019 5:50 Results for this W/AUTO DIFF AM [facility] procedure are in the results section. T3, FREE Routine 01/12/2019 5:50 Results for this AM [facility] procedure are in the results section. T4, FREE Routine 01/12/2019 5:50 Results for this [facility] procedure are in the results section. THYROID STIMULATING Routine 01/12/2019 5:50 Results for this HORMONE [facility] procedure are in the results section. CORTISOL LEVEL, AM Routine 01/12/2019 5:50 Results for this [facility] procedure are in the results section. POC GLUCOSE Routine 01/11/2019 9:13 Results for this PM [facility] procedure are in the results section. POC GLUCOSE Routine 01/11/2019 4:58 Results for this [facility] procedure are in the results section. THYROID PEROXIDASE Routine 01/11/2019 1:10 Results for this ANTIBODY [facility] procedure are in the results section. POC GLUCOSE Routine 01/11/2019 12:25 Results for this [facility] procedure are in the results section. ECG 12-LEAD Routine 01/11/2019 11:15 Results for this AM [facility] procedure are in the results section. POC GLUCOSE Routine 01/11/2019 7:45 Results for this AM [facility] procedure are in the results section. ESTIMATED GFR Routine 01/11/2019 3:30 Results for this AM [facility] procedure are in the results section. IONIZED CALCIUM Routine 01/11/2019 3:30 Results for this AM [facility] procedure are in the results section. PHOSPHORUS LEVEL Routine 01/11/2019 3:30 Results for this AM [facility] procedure are in the results section. MAGNESIUM LEVEL Routine 01/11/2019 3:30 Results for this AM [facility] procedure are in the results section. HEPATIC FUNCTION PANEL Routine 01/11/2019 3:30 Results for this AM [facility] procedure are in the results section. HC COMPLETE BLD COUNT Routine 01/11/2019 3:30 Results for this W/AUTO DIFF [facility] procedure are in the results section. BASIC METABOLIC PANEL Routine 01/11/2019 3:30 Results for this [facility] procedure are in the results section. POC GLUCOSE Routine 01/11/2019 1:06 Results for this AM [facility] procedure are in the results section. POC GLUCOSE Routine 01/10/2019 8:35 Results for this PM [facility] procedure are in the results section. TROPONIN Timed 01/10/2019 8:10 Results for this PM [facility] procedure are in the results section. HEMOGLOBIN & HEMATOCRIT Timed 01/10/2019 8:10 Results for this [facility] procedure are in the results section. POC GLUCOSE Routine 01/10/2019 5:19 Results for this [facility] procedure are in the results section. THYROID STIMULATING Routine 01/10/2019 5:16 Results for this HORMONE [facility] procedure are in the results section. HEPATITIS ACUTE PANEL Routine 01/10/2019 5:16 Results for this PM [facility] procedure are in the results section. T4 Routine 01/10/2019 5:16 Results for this PM [facility] procedure are in the results section. CONSULT TO OSTOMY CARE Routine 01/10/2019 4:47 NURSE [facility] TROPONIN Routine 01/10/2019 1:06 Results for this PM [facility] procedure are in the results section. HEMOGLOBIN & HEMATOCRIT STAT 01/10/2019 12:15 Results for this [facility] procedure are in the results section. LACTIC ACID LEVEL, Timed 01/10/2019 12:15 Results for this SEPSIS - NOW AND REPEAT PM [facility] procedure are in 2X EVERY 3 HOURS the results section. CREATININE LEVEL, URINE, Routine 01/10/2019 12:12 Results for this RANDOM PM [facility] procedure are in the results section. SODIUM LEVEL, URINE, Routine 01/10/2019 12:12 Results for this RANDOM [facility] procedure are in the results section. POC GLUCOSE Routine 01/10/2019 12:01 Results for this PM [facility] procedure are in the results section. ECG 12-LEAD Routine 01/10/2019 11:33 Results for this AM [facility] procedure are in the results section. CT HEAD WO CONTRAST STAT 01/10/2019 11:23 Results for this [facility] procedure are in the results section. CT ABDOMEN PELVIS WO STAT 01/10/2019 11:23 Results for this CONTRAST [facility] procedure are in the results section. XR PICC CHEST PORTABLE Routine 01/10/2019 11:00 Flasher Results for this AM [facility] procedure are in the results section. HC CATH DUAL LUMEN PICC Routine 01/10/2019 9:58 Results for this AM [facility] procedure are in the results section. HC US GUIDED VASCULAR Routine 01/10/2019 9:58 Results for this ACCESS [facility] procedure are in the results section. HC CVL PICC INSERT 5 YRS Routine 01/10/2019 9:58 Results for this OR > W/O IMG GUID [facility] procedure are in the results section. LACTIC ACID LEVEL, Timed 01/10/2019 9:14 Results for this SEPSIS - NOW AND REPEAT AM [facility] procedure are in 2X EVERY 3 HOURS the results section. POC GLUCOSE Routine 01/10/2019 8:33 Results for this [facility] procedure are in the results section. URINE CULTURE Routine 01/10/2019 7:31 Results for this [facility] procedure are in the results section. URINALYSIS SCREEN AND Routine 01/10/2019 7:24 Results for this MICROSCOPY, WITH REFLEX [facility] procedure are in TO CULTURE the results section. XR ABDOMEN 1 VW PORTABLE Routine 01/10/2019 6:53 Results for this AM [facility] procedure are in the results section. XR CHEST 1 VW PORTABLE STAT 01/10/2019 6:53 Results for this [facility] procedure are in the results section. LACTIC ACID LEVEL, Timed 01/10/2019 6:45 Results for this SEPSIS - NOW AND REPEAT AM [facility] procedure are in 2X EVERY 3 HOURS the results section. ECHOCARDIOGRAM 2D STAT 01/10/2019 6:28 Results for this COMPLETE W MMODE [facility] procedure are in SPECTRAL COLOR DOPPLER the results (51132) section. POC GLUCOSE Routine 01/10/2019 4:27 Results for this [facility] procedure are in the results section. ESTIMATED GFR STAT 01/10/2019 3:45 Results for this [facility] procedure are in the results section. CREATINE KINASE, TOTAL STAT 01/10/2019 3:45 Results for this (CPK) [facility] procedure are in the results section. TYPE AND SCREEN STAT 01/10/2019 3:45 Results for this [facility] procedure are in the results section. B NATRIURETIC PEPTIDE STAT 01/10/2019 3:45 Results for this [facility] procedure are in the results section. TROPONIN STAT 01/10/2019 3:45 Results for this [facility] procedure are in the results section. PROTHROMBIN TIME WITH STAT 01/10/2019 3:45 Results for this INR [facility] procedure are in the results section. PHOSPHORUS LEVEL STAT 01/10/2019 3:45 Results for this [facility] procedure are in the results section. PARTIAL THROMBOPLASTIN STAT 01/10/2019 3:45 Results for this TIME (PTT) [facility] procedure are in the results section. MAGNESIUM LEVEL STAT 01/10/2019 3:45 Results for this [facility] procedure are in the results section. LIPASE LEVEL STAT 01/10/2019 3:45 Results for this [facility] procedure are in the results section. LACTIC ACID LEVEL STAT 01/10/2019 3:45 Results for this [facility] procedure are in the results section. IONIZED CALCIUM STAT 01/10/2019 3:45 Results for this [facility] procedure are in the results section. HEPATIC FUNCTION PANEL STAT 01/10/2019 3:45 Results for this [facility] procedure are in the results section. FIBRINOGEN STAT 01/10/2019 3:45 Results for this [facility] procedure are in the results section. D-DIMER STAT 01/10/2019 3:45 Results for this [facility] procedure are in the results section. COMPREHENSIVE METABOLIC STAT 01/10/2019 3:45 Results for this PANEL [facility] procedure are in the results section. HC COMPLETE BLD COUNT STAT 01/10/2019 3:45 Results for this W/AUTO DIFF [facility] procedure are in the results section. AMYLASE LEVEL STAT 01/10/2019 3:45 Results for this [facility] procedure are in the results section. GASTROINTESTINAL PANEL Routine 01/10/2019 3:45 Results for this [facility] procedure are in the results section. GRAM STAIN Routine 01/10/2019 3:45 Results for this [facility] procedure are in the results section. ANAEROBIC CULTURE Routine 01/10/2019 3:45 Results for this [facility] procedure are in the results section. AEROBIC CULTURE Routine 01/10/2019 3:45 Results for this [facility] procedure are in the results section. OCCULT BLOOD, STOOL Routine 01/10/2019 3:45 Results for this [facility] procedure are in the results section. BLOOD CULTURE, AEROBIC & Routine 01/10/2019 3:45 Results for this ANAEROBIC [facility] procedure are in the results section. RESPIRATORY PATHOGEN Routine 01/10/2019 3:45 Results for this PANEL [facility] procedure are in the results section. POC GLUCOSE Routine 01/10/2019 3:12 Results for this [facility] procedure are in the results section. ECG 12-LEAD STAT 01/10/2019 2:51 Results for this [facility] procedure are in the results section. ESTIMATED GFR Routine 11/26/2018 5:38 Results for this [facility] procedure are in the results section. HEMOGLOBIN & HEMATOCRIT Routine 11/26/2018 5:38 Results for this [facility] procedure are in the results section. BASIC METABOLIC PANEL Routine 11/26/2018 5:38 Results for this [facility] procedure are in the results section. ESTIMATED GFR Routine 11/25/2018 9:03 Results for this [facility] procedure are in the results section. BASIC METABOLIC PANEL Routine 11/25/2018 9:03 Results for this [facility] procedure are in the results section. HC COMPLETE BLD COUNT Routine 11/25/2018 7:30 Results for this W/AUTO DIFF [facility] procedure are in the results section. ESTIMATED GFR Routine 11/24/2018 4:05 Results for this [facility] procedure are in the results section. PHOSPHORUS LEVEL Routine 11/24/2018 4:05 Results for this [facility] procedure are in the results section. MAGNESIUM LEVEL Routine 11/24/2018 4:05 Results for this [facility] procedure are in the results section. BASIC METABOLIC PANEL Routine 11/24/2018 4:05 Results for this [facility] procedure are in the results section. HC COMPLETE BLD COUNT Routine 11/24/2018 4:05 Results for this W/AUTO DIFF [facility] procedure are in the results section. HEMOGLOBIN & HEMATOCRIT Timed 11/23/2018 3:00 Results for this [facility] procedure are in the results section. HC COMPLETE BLD COUNT Routine 11/23/2018 4:05 Results for this W/AUTO DIFF [facility] procedure are in the results section. ESTIMATED GFR Routine 11/23/2018 4:00 Results for this [facility] [facility] procedure are in the results section. PHOSPHORUS LEVEL Routine 11/23/2018 4:00 Results for this [facility] procedure are in the results section. MAGNESIUM LEVEL Routine 11/23/2018 4:00 Results for this [facility] [facility] procedure are in the results section. BASIC METABOLIC PANEL Routine 11/23/2018 4:00 Results for this AM IMPORT/EXPORT SPECIALIST procedure are in the results section. HC COMPLETE BLD COUNT Timed 11/22/2018 9:15 Results for this W/AUTO DIFF PM IMPORT/EXPORT SPECIALIST procedure are in the results section. ESTIMATED GFR Timed 11/22/2018 8:00 Results for this PM IMPORT/EXPORT SPECIALIST procedure are in the results section. BASIC METABOLIC PANEL Timed 11/22/2018 8:00 Results for this PM IMPORT/EXPORT SPECIALIST procedure are in the results section. SURGICAL PATHOLOGY Routine 11/22/2018 5:30 Results for this REQUEST PM IMPORT/EXPORT SPECIALIST procedure are in the results section. TRANSFUSE RED BLOOD Routine 11/22/2018 5:20 CELLS PM IMPORT/EXPORT SPECIALIST TRANSFUSE RED BLOOD STAT 11/22/2018 4:09 CELLS PM IMPORT/EXPORT SPECIALIST VT AN EMERGENT Routine 11/22/2018 3:52 ENDOTRACHEAL AIRWAY PM IMPORT/EXPORT SPECIALIST Procedure Note - Kassidy Hansen CRNA - 11/22/2018 3:52 PM IMPORT/EXPORT SPECIALIST ANESTHESIA INTUBATION Date/Time: 11/22/2018 3:25 PM Performed by: Kassidy Hansen CRNA Authorized by: Felipe Trejo MD Location: OR Urgency: Emergent Difficult Airway: No Anesthesiologist: Rodrigo Oates MD Resident/RN STAFFING/AA: Kassidy Hansen CRNA Performed by: resident/RN STAFFING/AA Consent Cannot be Obtained Due to Urgency: [...] 2 UNSUCCEFULL. RYAN 3 SUCCESSFULL SIGMOIDECTOMY, 11/22/2018 3:18 PM bleeding LAPAROSCOPIC IMPORT/EXPORT SPECIALIST ESTIMATED GFR Timed 11/22/2018 12:15 PM Results for this IMPORT/EXPORT SPECIALIST procedure are in the results section. HC COMPLETE BLD COUNT Timed 11/22/2018 12:15 PM Results for this W/AUTO DIFF IMPORT/EXPORT SPECIALIST procedure are in the results section. PHOSPHORUS LEVEL Timed 11/22/2018 12:15 PM Results for this IMPORT/EXPORT SPECIALIST procedure are in the results section. BASIC METABOLIC PANEL Timed 11/22/2018 12:15 PM Results for this IMPORT/EXPORT SPECIALIST procedure are in the results section. ESTIMATED GFR Routine 11/22/2018 3:40 AM Results for this IMPORT/EXPORT SPECIALIST procedure are in the results section. PHOSPHORUS LEVEL Routine 11/22/2018 3:40 AM Results for this IMPORT/EXPORT SPECIALIST procedure are in the results section. MAGNESIUM LEVEL Routine 11/22/2018 3:40 AM Results for this IMPORT/EXPORT SPECIALIST procedure are in the results section. BASIC METABOLIC PANEL Routine 11/22/2018 3:40 AM Results for this IMPORT/EXPORT SPECIALIST procedure are in the results section. HC COMPLETE BLD COUNT Routine 11/22/2018 3:00 AM Results for this W/AUTO DIFF IMPORT/EXPORT SPECIALIST procedure are in the results section. SURGICAL PATHOLOGY REQUEST Routine 11/21/2018 1:12 PM Results for this IMPORT/EXPORT SPECIALIST procedure are in the results section. VT AN ELECTIVE Routine 11/21/2018 8:35 AM ENDOTRACHEAL AIRWAY IMPORT/EXPORT SPECIALIST Procedure Note - Yaima Krause CRNA - 11/21/2018 8:35 AM IMPORT/EXPORT SPECIALIST Airway Date/Time: 11/21/2018 8:02 AM Performed [...] easily. MAGNESIUM LEVEL STAT 11/21/2018 8:25 AM IMPORT/EXPORT SPECIALIST IONIZED CALCIUM, ARTERIAL STAT 11/21/2018 8:25 AM IMPORT/EXPORT SPECIALIST GLUCOSE LEVEL, SYRINGE STAT 11/21/2018 8:25 AM IMPORT/EXPORT SPECIALIST HEMOGLOBIN, SYRINGE STAT 11/21/2018 8:25 AM IMPORT/EXPORT SPECIALIST POTASSIUM, SYRINGE STAT 11/21/2018 8:25 AM IMPORT/EXPORT SPECIALIST SODIUM LEVEL, SYRINGE STAT 11/21/2018 8:25 AM IMPORT/EXPORT SPECIALIST ARTERIAL BLOOD GAS STAT 11/21/2018 8:25 AM IMPORT/EXPORT SPECIALIST LACTIC ACID, SYRINGE STAT 11/21/2018 8:25 AM IMPORT/EXPORT SPECIALIST ARTERIAL LINE Routine 11/21/2018 8:14 AM IMPORT/EXPORT SPECIALIST Procedure Note - Felipe Trejo MD - 11/21/2018 8:14 AM IMPORT/EXPORT SPECIALIST Arterial line Performed by: Felipe Trejo [...] with no immediate complications COLECTOMY, PARTIAL, 11/21/2018 7:51 AM IMPORT/EXPORT SPECIALIST Cancer of ascending colon LAPAROSCOPIC (HCC) Special Needs EST 2 HRS, TF~1400, REQ 1200 START ECG PRE/POST OP Routine 11/15/2018 1:02 PM Preop testing Results for this IMPORT/EXPORT SPECIALIST procedure are in the results section. CARCINOEMBRYONIC ANTIGEN Routine 11/15/2018 12:52 PM Preop testing Results for this (CEA) IMPORT/EXPORT SPECIALIST procedure are in the results section. PREPARE RBC Routine 11/15/2018 12:43 PM Results for this IMPORT/EXPORT SPECIALIST procedure are in the results section. PREPARE RBC Routine 11/15/2018 12:43 PM Results for this IMPORT/EXPORT SPECIALIST procedure are in the results section. TYPE AND SCREEN Routine 11/15/2018 12:43 PM Preop testing Results for this IMPORT/EXPORT SPECIALIST procedure are in the results section. ESTIMATED GFR Routine 10/24/2018 1:36 PM Results for this IMPORT/EXPORT SPECIALIST procedure are in the results section. COMPREHENSIVE METABOLIC Routine 10/24/2018 1:36 PM Preop testing Results for this PANEL IMPORT/EXPORT SPECIALIST procedure are in the results section. CBC HEMOGRAM Routine 10/24/2018 1:36 PM Preop testing Results for this IMPORT/EXPORT SPECIALIST procedure are in the results section. after 07/23/2018 Results POC glucose (01/23/2019 11:45 AM CDT)Only the most recent of44 resultswithin the time period is included. [facility] POC glucose 107 (H) 65 - 99 mg/dL [facility] Comment: [facility] Notified RN Meter ID: [id number] Dynamics Ax Consultant: Eddie Dowd I Specimen Performing Organization Address City/State/Zipcode Phone Number [facility] DEPARTMENT OF PATHOLOGY AND [address] [id number] GENOMIC MEDICINE [facility] [address] [place] [address] CBC hemogram (01/23/2019 6:20 AM CDT)Only the most recent of2 resultswithin the time period is included. [facility] WBC 6.23 4.50 - 11.00 k/uL [facility] RBC 2.77 (L) 4.40 - 6.00 m/uL [facility] HGB 8.9 (L) 14.0 - 18.0 g/dL [facility] HCT 28.1 (L) 41.0 - 51.0 % [facility] MCV 101.4 (H) 82.0 - 100.0 fL [facility] MCH 32.1 27.0 - 34.0 pg [facility] MCHC 31.7 31.0 - 37.0 g/dL [facility] RDW - SD 66.9 (H) 37.0 - 55.0 fL [facility] MPV 10.7 8.8 - 13.2 fL [facility] Platelet count 156 150 - 400 k/uL [facility] Nucleated RBC 0.00 /100 WBC [facility] Specimen Blood Performing Organization Address [facility] Phone Number [facility] DEPARTMENT OF PATHOLOGY AND [address] [place] [phone] Estimated GFR (01/22/2019 5:00 AM CDT)Only the most recent of20 resultswithin the time period is included. Estimated GFR 73 mL/min/1.73 [facility] Comment: [address] CatergoryUnitsInterpretation G1 >=90 Normal or high G2 60-89Mildly decreased D6o85-82Yonkrw to moderately decreased W0s57-01Rdeynwchqi to severely decreased G4 15-29Severely decreased G5 <15Kidney failure The eGFR was calculated using the Chronic Kidney Disease Epidemiology Collaboration (CKD-EPI) equation. Interpretation is based on recommendations of the National Kidney Foundation-Kidney Disease Outcomes Quality Initiative (NKF-KDOQI) published in 2014. Specimen Plasma specimen Performing Organization Address [facility] Phone Number [facility] DEPARTMENT OF PATHOLOGY AND [address] [place] [address] Phosphorus level (01/22/2019 5:00 AM CDT)Only the most recent of9 resultswithin the time period is included. Phosphorus 2.3 (L) 2.4 - 4.5 mg/dL [facility] Specimen Plasma specimen Performing Organization Address [facility] Phone Number [facility] DEPARTMENT OF PATHOLOGY AND [address] [place] [phone] [place] [phone] B natriuretic peptide (01/22/2019 5:00 AM CDT)Only the most recent of5 resultswithin the time period is included. BNP 2,025 (H) 0 - 100 pg/mL [facility] Specimen Blood Performing Organization Address [facility] Phone Number [facility] DEPARTMENT OF PATHOLOGY AND [address] [place], [place] [address] [address] Magnesium level (01/22/2019 5:00 AM CDT)Only the most recent of13 resultswithin the time period is included. Magnesium 1.8 1.6 - 2.4 mg/dL [facility] Specimen Plasma specimen Performing Organization Address [facility] Phone Number [facility] DEPARTMENT OF PATHOLOGY AND [address] [place] [address] [facility] [address] [place] [address] Comprehensive metabolic panel (01/22/2019 5:00 AM CDT)Only the most recent of6 resultswithin the time period is included. Sodium 142 135 - 148 [facility] mEq/L [facility] Potassium 4.3 3.5 - 5.0 [facility] mEq/L [facility] Chloride 115 (H) 98 - 112 mEq/L [facility] CO2 18 (L) 24 - 31 mEq/L [facility] Anion gap 9@ANIO 7 - 15 mEq/L [facility] BUN 16 8 - 23 mg/dL [facility] Creatinine 0.98 0.70 - 1.20 [facility] mg/dL [facility] Glucose 78 65 - 99 mg/dL [facility] Calcium 8.1 (L) 8.8 - 10.2 [facility] mg/dL [facility] Protein 4.9 (L) 6.3 - 8.3 g/dL [facility] Comment: [facility] [place] 4.6-7.0 g/dL 1 week 4.4-7.6 g/dL 7 months-1year5.1-7.3 g/dL 1-2 years5.6-7.5 g/dL >3 years6.0-8.0 g/dL 18-150 6.3-8.3 g/dL Albumin 2.1 (L) 3.5 - 5.0 g/dL [facility] A/G ratio 0.8 0.7 - 3.8 [facility] Alkaline phosphatase 93 40 - 129 U/L [facility] AST 16 10 - 50 U/L [facility] ALT 10 5 - 50 U/L [facility] Total bilirubin 0.7 0.0 - 1.2 [facility] mg/dL [facility] Specimen Plasma specimen Performing Organization Address [facility]/Zipcode Phone Number [facility] DEPARTMENT OF PATHOLOGY AND [address] [place] [address] GENOMIC MEDICINE [facility] [address] [place] [address] XR Chest 1 Vw Portable (01/21/2019 2:42 [...] No significant pleural effusion. Stable cardiomediastinal silhouette. [facility]-[id number] Procedure Note Interface, Radiology Results Incoming - 01/21/2019 2:56 PM CDT EXAMINATION: XR CHEST 1 VW PORTABLE CLINICAL HISTORY: chf COMPARISON: 01/10/2019 IMPRESSION: Right PICC line courses to the cavoatrial junction. Mild right hemidiaphragm elevation. Patchy left basilar opacity may reflect pneumonia, mildly improved. No new consolidation. No significant pleural effusion. Stable cardiomediastinal silhouette. [facility]-[id number] Performing Organization Address [facility]/Zipcode Phone Number [facility] [address] [place] [address] Us duplex venous upper extremity (01/21/2019 2:27 PM CDT) Specimen Narrative Performed At [facility] Vascular Ultrasound Laboratory Upper Extremity Venous Report [address] [place] [address] Pat.Name:GAUTAM RAMIREZ Pat.ID:[id number] .Date: 01/21/2019 Refer.MD:LUIS CHEN MD Exam Time: 1:48:00 PMStudy Type:UE Venous Height:73inWeight: 155lb BSA: 1.93 m2 DOBAge:1940,78Y Sex: MALESonogrphr: Janny Cole RVT Pat. Stat.:Inpatient Room:[address] TapeVol: FAUSTINO, CPT - 4: 85287 Echo Event ID:[id number] Order ID:[id number] Reason for Study:Evaluation for DVT. Procedures:Colorflow, Grayscale/2D, [...] Ultrasound Laboratory Upper Extremity Venous Report [address] [place] [address] Pat.Name: GAUTAM RAMIREZ Pat.ID: [id number] .Date: 01/21/2019 Refer.MD: LUIS CHEN MD Exam Time: 1:48:00 PM Study Type:UE Venous Height: 73in Weight: 155lb BSA: 1.93 m2 Age: 4 1940,78Y Sex: MALE Sonogrphr: Janny Cole RVT Pat. Stat.:Inpatient Room: [address] Tape Vol: JJ, CPT - 4: 74392 Echo Event ID:[id number] Order ID: [id number] Reason for Study:Evaluation for DVT. Procedures:Colorflow, Grayscale/2D, [...] Sergio Solorzano MD, RPVI Performing Organization Address [facility]/State/Zipcode Phone Number [facility] [address] duplex venous lower extremity (01/21/2019 2:03 PM CDT) Specimen Narrative Performed At [facility] Vascular Ultrasound Laboratory Lower Extremity Venous Report [address] [place] [address] Pat.Name:GAUTAM RAMIREZ Pat.ID:[id number] .Date: 01/21/2019 Refer.MD:LUIS CHEN MD Exam Time: 2:05:00 PMStudy Type:LE Venous Height:73inWeight: 155lb BSA: 1.93 m2 DOBAge:1940,78Y Sex: MALESonogrphr: Janny Cole RVT Pat. Stat.:Inpatient Room:[address] TapeVol: FAUSTINO, CPT - 4: 22927 Echo Event ID:[id number] Order ID:[id number] Reason for Study:Evaluation for DVT, prolonged supine [...] Vascular Ultrasound Laboratory Lower Extremity Venous Report [address] [address] [facility].Name: GAUTAM RAMIREZ Pat.ID: [id number] .Date: 01/21/2019 Refer.MD: LUIS CHEN MD Exam Time: 2:05:00 PM Study Type:LE Venous Height: 73in Weight: 155lb BSA: 1.93 m2 Age: 5 1940,78Y Sex: MALE Sonogrphr: Janny Cole RVT Pat. Stat.:Inpatient Room: [address] Vol: JJ, CPT - 4: 24827 Echo Event ID:[id number] Order ID: [id number] Reason for Study:Evaluation for DVT, prolonged supine [...] Organization Address City/State/Zipcode Phone Number [facility] [address] [place] [address] Cv specialist employee labor relations procedure (01/20/2019 9:02 AM CDT) Specimen Narrative Performed At Inpatient procedure ;preop dx ischemic cardiomyopathy , decompensated chf [facility] procedure : lhc,lva ,selective cor findings: patent proximal; lad stent,mild isr; cfx - calcified plaque vxi89-88% proximal stenosis, 100% stenosis mid rca proximal to rca stent, collaterals to distal julia /pad of rca via lad septals and cfx[progression of rca occlusive cadVs 01/2081 outside heart cath diagran m and lvef worsening vs out echo/doppler form [facility] 11/2018 report] lvef est 25-29%, lvedp 8; medical rx , afterloadOptimization; cv risk optimization emphasis Performing Organization Address City/[facility]/Zipcode Phone Number [facility] [address] [place] [address] Partial thromboplastin time, activated (01/20/2019 4:56 AM CDT)Only the most recent of3 resultswithin the time period is included. Pathologist [facility] PTT 38.8 (H) 23.0 - 36.0 [facility] Comment: [facility] PTT therapeutic range for unfractionated heparin is 61.0-112.0 seconds which corresponds to Anti-Xa 0.3-0.7 U/ml. Specimen Blood Performing Organization Address City/[facility] Phone Number [facility] DEPARTMENT OF PATHOLOGY AND [address] [place] [address] [address] Prothrombin time with INR (01/20/2019 4:56 AM CDT)Only the most recent of4 resultswithin the time period is included. Pathologist [facility] Prothrombin time 18.2 (H) 11.5 - 14.5 [facility] INR 1.6 [place] Comment: [facility] [employer] Normalized Ratio (INR) is a therapeutic HOSPITAL monitoring tool for patients who are stable on oral anticoagulant therapy. An INR of 2.0-3.0 is suggested for deep vein thrombosis/pulmonary embolism. Specimen Blood Performing Organization Address City/[facility] Cent[facility] Phone Number [facility] DEPARTMENT OF PATHOLOGY AND [address] [place] [phone] [address] CBC with platelet and differential (01/20/2019 4:56 AM CDT)Only the most recent of13 resultswithin the time period is included. Pathologist [facility] WBC 7.13 4.50 - 11.00 [facility] k/uL HOSPITAL RBC 2.75 (L) 4.40 - 6.00 [facility] m/uL HOSPITAL HGB 8.8 (L) 14.0 - 18.0 [facility] g/dL HOSPITAL HCT 28.7 (L) 41.0 - 51.0 % [facility] MCV 104.4 (H) 82.0 - 100.0 [facility] MCH 32.0 27.0 - 34.0 pg [facility] MCHC 30.7 (L) 31.0 - 37.0 [facility] RDW - SD 64.8 (H) 37.0 - 55.0 fL [facility] MPV 11.1 8.8 - 13.2 fL [facility] Platelet count 124 (L) 150 - 400 k/uL [facility] Nucleated RBC 0.00 /100 WBC [facility] Neutrophils 70.3 (H) 39.0 - 69.0 % [facility] Lymphocytes 18.7 (L) 25.0 - 45.0 % [facility] Monocytes 6.9 0.0 - 10.0 % [facility] Eosinophils 2.8 0.0 - 5.0 % [facility] Basophils 0.3 0.0 - 1.0 % [facility] Immature granulocytes 1.0Comment: 0.0 - 1.0 % [facility] "[facility] granulocytes" (promyelocytes , myelocytes, metamyelocytes ) Specimen Blood Performing Organization Address City/State/Zipcode Phone Number [facility] DEPARTMENT OF PATHOLOGY AND [address] [place] [address] GENOMIC MEDIC[address] [address] Basic metabolic panel (01/17/2019 4:00 AM IMPORT/EXPORT SPECIALIST)Only the most recent of14 resultswithin the time period is included. [facility] Sodium 141 135 - 148 mEq/L [facility] Potassium 4.1 3.5 - 5.0 mEq/L [facility] Chloride 116 (H) 98 - 112 mEq/L [facility] CO2 19 (L) 24 - 31 mEq/L [facility] Anion gap 6@ANIO (L) 7 - 15 mEq/L [facility] BUN 18 8 - 23 mg/dL [facility] Creatinine 0.93 0.70 - 1.20 mg/dL [facility] Glucose 91 65 - 99 mg/dL [facility] Calcium 7.5 (L) 8.8 - 10.2 mg/dL [facility] Specimen Plasma specimen Performing Organization Address City/State/Zipcode Phone Number [facility] DEPARTMENT OF PATHOLOGY AND [address] [place] [address] GENOMIC MEDICINE [facility] [address] [place] [address] Cv echo 2d limited or follow up study (01/16/2019 12:25 PM IMPORT/EXPORT SPECIALIST) Specimen Narrative Performed At [facility] Echocardiography Report [address] [facility] [address], [place] [address] Pat.Name:GAUTAM RAMIREZ Pat.ID:[id number] .Date: 01/16/2019Refer.MD:LUIS CHEN MD Exam Time: 11:57:00 AM Study Type:Routine Echo Height:72.99in Weight:155lb BSA: 1.93 m2 DOBAge:1940,78Y Sex: MALEBP:99/56 HR:83 bpmSonogrphr: Sweta Turk RDCS Pat. Stat.:Inpatient Room:[place] [address] Study Status:Final Echo Event ID:[id number] Order ID:[id number] Reason for Study:Cardiomyopathies - Initial eval of known or suspected cardiomyopathy (e.g. restrictive, infiltrative, dilated, hypertophic, or genetic cardiomyopathy) Procedures:Portable, 2D Echo,Colorflow Doppler Limited Race:C SUMMARY: LV size is moderately to severely enlarged. Estimated EF is 20-24%. There is severe eccentric LV hypertrophy. Estimated PA systolic pressure is 33-38 mmHg, assuming a mean RAP of 5-10 mmHg. FINDINGS: LV: LV size is tjkfzuuc-cf-trklfckb enlarged. There is severe eccentricLV hypertrophy. LV [...] of 5-10 mmHg. MEASUREMENTS: 2D Parasternal [place] LVOT 1.9 cmLA Ds5.1 cm LVIDd6.6 cmIndex3.4 cm/m Ao An2 cm LVIDs5.4 cmAo Rtd 3.7 cm Index1.9 cm/m LV%fs 18.2 % LV Ivep664.9 g(122-174) IVSd 1.1 cmLVM Ymgqa825.3 g/m2 LVPWd1.2 cmRWT0.4 LA Sng Plane LA [...] 4332.8 cm/s2 AV Mean G 16.8 mmHgAV EmOr797.2 cm/s2 AV AC106 msec (83-118) AV Area1.1 [...] Radiology Results In - 01/16/2019 4:21 PM IMPORT/EXPORT SPECIALIST Echocardiography Report [address] [place] [address] Pat.Name: GAUTAM RAMIREZ Pat.ID: [id number] .Date: 01/16/2019 Refer.MD: LUIS CHEN MD Exam Time: 11:57:00 AM Study Type:Routine Echo Height: 72.99in Weight: 155lb BSA: 1.93 m2 Age: 5 1940,78Y Sex: MALE BP: 99/56 HR: 83 bpm Sonogrphr: Sweta Turk RDCS Pat. Stat.:Inpatient Room: [place] [address] Study Status:Final Echo Event ID:[id number] Order ID: [id number] Reason for Study:Cardiomyopathies - Initial eval of known or suspected cardiomyopathy (e.g. restrictive, infiltrative, dilated, hypertophic, or genetic cardiomyopathy) Procedures:Portable, 2D Echo,Colorflow Doppler Limited Race: C SUMMARY: LV size is moderately to severely enlarged. Estimated EF is 20-24%. There is severe eccentric LV hypertrophy. Estimated PA systolic pressure is 33-38 mmHg, assuming a mean RAP of 5-10 mmHg. FINDINGS: LV: LV size is ewivxrty-yo-mbjbfedv enlarged. There is severe eccentric LV hypertrophy. [...] of 5-10 mmHg. MEASUREMENTS: 2D Parasternal [place] LVOT 1.9 cm LA Ds 5.1 cm [...] M.D. Performing Organization Address City/State/Zipcode Phone Number [facility] [address] [place] [address] Vancomycin level, trough (01/16/2019 4:00 AM IMPORT/EXPORT SPECIALIST)Only the most recent of2 resultswithin the time period is included. Pathologist [facility] Vancomycin, 18.2 10.0 - 20.0 [facility] trough Comment: ug/mL HOSPITAL Therapeutic Ranges: Peak 30.0 - 40.0 ug/mL Lknaea18.0 - 20.0 ug/mL Specimen Serum Performing Organization Address [facility]ode Phone Number [facility] DEPARTMENT OF PATHOLOGY AND [address] [place] [address] GENOMIC MEDICINE [address] [address] ECG 12 lead (01/15/2019 8:20 AM IMPORT/EXPORT SPECIALIST)Only the most recent of4 resultswithin the time period is included. Ventricular rate 99 [facility] Atrial rate 99 [facility] QRSD interval 124 [facility] QT interval 352 [facility] QTC interval 451 [facility] P axis 1 56 [facility] QRS axis 1 -31 [facility] T wave axis 124 [facility] EKG impression Normal sinus rhythm-Left axis deviation-Septal infarct (cited on or before 15-NOV-2018)-Inferior infarct (cited on or before 10-JAN-2019)-ST & T wave abnormality, consider lateral ischemia-Abnormal ECG-In automated comparison with ECG of 11-JAN-2019 [facility] MUSE 11:15,-fusion complexes are no longer present-QRS axis shifted left- Nonspecific T wave abnormality, improved in Inferior leads-T wave inversion more evident in Lateral leads- Specimen Narrative Performed At Performing Organization Address City/[facility] Phone Number [facility] MUSE [address] [place] [address] Aerobic culture (01/14/2019 11:05 AM IMPORT/EXPORT SPECIALIST)Only the most recent of2 resultswithin the time period is included. Aerobic culture No growth after 2 days. [facility] isolate Comment: HOSPITAL Specimen Information Specimen Source: Drainage Specimen Site: Back Specimen Drainage - Back Performing Organization Address [facility] Phone Number [facility] DEPARTMENT OF PATHOLOGY AND [address] [place] [address] Gram stain (01/14/2019 11:05 AM IMPORT/EXPORT SPECIALIST)Only the most recent of2 resultswithin the time period is included. Gram stain isolate Moderate WBC's [facility] No [facility] Comment: Specimen Information Specimen Source: Drainage Specimen Site: Back Specimen Drainage - Back Performing Organization Address [facility] Phone Number [facility] DEPARTMENT OF PATHOLOGY AND [address] [place] [address] Anaerobic culture (01/14/2019 10:05 AM IMPORT/EXPORT SPECIALIST)Only the most recent of2 resultswithin the time period is included. Anaerobic culture No anaerobic organisms isolated. [facility] isolate Comment: HOSPITAL Specimen Information Specimen Source: Drainage Specimen Site: Back Specimen Drainage - Back Performing Organization Address [facility] Phone Number [facility] DEPARTMENT OF PATHOLOGY AND [address] [place] [address] HIV Ag/Ab combination (01/14/2019 4:00 AM IMPORT/EXPORT SPECIALIST) HIV Ag/Ab combination Non-reactive Non-reactive [facility] Specimen Blood Performing Organization Address [facility] Phone Number [facility] DEPARTMENT OF PATHOLOGY AND [address] [place] [address] Us carotid duplex (01/13/2019 9:45 AM IMPORT/EXPORT SPECIALIST) Specimen Narrative Performed At [facility] Carotid Artery Duplex Report [address] [address], [place] [address] For automotive quality engineer purposes, the categorization of the degree of the stenosis of this exam is based on criteria described in the IAC carotid stenosis grading white paper( www.intersocietal.org/Vascular) and Dimitris Ford, Ross Garay, et al. Carotid artery stenosis: grady-scale and Doppler US diagnosis--Society of Radiologists in Ultrasound Consensus Conference. Radiology. 2003 Nov; 229(2):340-6. Pat.Name:GAUTAM RAMIREZ.ID:[id number] .Date: 01/13/2019Refer.MD:LUIS CHEN MD Exam Time: 9:25:00 AMStudy Type:Carotid DOBAge:1940,78Y Sex: MALE Sonogrphr: Piero Starr, RVSPat. Stat.:Inpatient Room:[facility] TapeVol: , CPT - 4: 69926 Echo Event ID:[id number] Order ID:[id number] Reason for Study:Carotid artery disease; CAD, colon [...] Radiology Results In - 01/13/2019 6:06 PM [facility] Carotid Artery Duplex Report [address] [place] [address] For automotive quality engineer purposes, the categorization of the degree of the stenosis of this exam is based on criteria described in the IAC carotid stenosis grading white paper( www.intersocietal.org/Vascular) and Keli Ford., Ross Garay, et al. Carotid artery stenosis: grady-scale and Doppler US diagnosis--Society of Radiologists in Ultrasound Consensus Conference. Radiology. 2003 Nov; 229(2):340-6. Pat.Name: GAUTAM RAMIREZ Pat.ID: [id number] .Date: 01/13/2019 Refer.MD: LUIS CHEN MD Exam Time: 9:25:00 AM Study Type:Carotid Age: 4 1940,78Y Sex: MALE Sonogrphr: NGA [place] Pat. Stat.:Inpatient Room: [facility] Tape Vol: FE, CPT - 4: 40451 Echo Event ID:[id number] Order ID: [id number] Reason for Study:Carotid artery disease; CAD, colon [...] Estrada MD, FACS, RPVI Performing Organization Address [facility] Phone Number [facility] [address] [place] [address] Total iron binding capacity (01/13/2019 3:30 AM IMPORT/EXPORT SPECIALIST) [facility] Iron level 39 (L) 59 - 158 ug/dL [facility] Iron binding capacity 81 (L) 200 - 400 ug/dL [facility] % Saturation 48.1 (H) 20.0 - 40.0 % [facility] Specimen Plasma specimen Performing Organization Address [facility] Phone Number [facility] DEPARTMENT OF PATHOLOGY AND [address] [place] [address] [address] Reticulocyte count (01/13/2019 3:30 AM IMPORT/EXPORT SPECIALIST) [facility] Retic %, auto 0.9 0.5 - 2.1 % [facility] Retic absolute, auto 0.0245 0.0220 - 0.1260 [facility] Specimen Blood Performing Organization Address [facility] Phone Number [facility] DEPARTMENT OF PATHOLOGY AND [address] [place] [address] [address] Folate level (01/13/2019 3:30 AM IMPORT/EXPORT SPECIALIST) [facility] Folate 4.2 (L) 4.8 - 24.2 ng/mL [facility] Specimen Serum Performing Organization Address [facility] Phone Number [facility] DEPARTMENT OF PATHOLOGY AND [address] [place] [address] [address] Vitamin B12 level (01/13/2019 3:30 AM IMPORT/EXPORT SPECIALIST) Vitamin B12 259 211 - 946 [facility] Comment: pg/mL HOSPITAL Significant overlap exists between normal and deficiency states. However, most patients with deficiencies will have Serum B12 <200 pg/mL. Specimen Serum Performing Organization Address City/[facility]/Zipcode Phone Number [facility] DEPARTMENT OF PATHOLOGY AND [address] [place] [phone] [place] [address] Cortisol level, AM (01/12/2019 5:50 AM IMPORT/EXPORT SPECIALIST) Pathologist [facility] Cortisol, AM 7 6 - 18 ug/dL [facility] Specimen Plasma specimen Performing Organization Address City/[facility] Phone Number [facility] DEPARTMENT OF PATHOLOGY AND [address] [place] [address] T3, free (01/12/2019 5:50 AM IMPORT/EXPORT SPECIALIST) Pathologist [facility] T3, free 1.1 (L) 2.4 - 4.2 pg/mL [facility] Comment: REFERENCE INTERVAL: Triiodothyronine, Free (Free T3) Access complete set of age- and/or gender-specific reference intervals for this test in the [facility] Laboratory Test Directory ([employer]). Performed by [employer], [address] [place] [id number] [email or web address], Al Dunbar MD - Lab. Director Specimen Serum Performing Organization Address [facility] Phone Number [facility] [address] [place] [address] [facility] [address] [place] [address] Thyroid stimulating hormone (01/12/2019 5:50 AM IMPORT/EXPORT SPECIALIST)Only the most recent of2 resultswithin the time period is included. [facility] TSH 4.12 0.27 - 4.20 uIU/mL [facility] Specimen Plasma specimen Performing Organization Address City/[facility]/Zipcode Phone Number [facility] DEPARTMENT OF PATHOLOGY AND [address] [place] [phone] [place] [address] T4, free (01/12/2019 5:50 AM IMPORT/EXPORT SPECIALIST) T4, free 0.8 (L) 0.9 - 1.7 ng/dL [facility] Specimen Plasma specimen Performing Organization Address City/[facility] Phone Number [facility] DEPARTMENT OF PATHOLOGY AND [address] [place] [address] Thyroperoxidase antibody (01/11/2019 1:10 PM IMPORT/EXPORT SPECIALIST) Pathologist [facility] Thyroperoxidase Ab <0.3 0.0 - 9.0 IU/mL [facility] Specimen Serum Performing Organization Address City/[facility] Phone Number [facility] DEPARTMENT OF PATHOLOGY AND [address] [place] [address] Ionized calcium (01/11/2019 3:30 AM IMPORT/EXPORT SPECIALIST)Only the most recent of2 resultswithin the time period is included. pH 7.53 [facility] Ionized calcium 1.11 1.11 - 1.32 mmol/L [facility] Specimen Plasma specimen Performing Organization Address City/[facility] Phone Number [facility] DEPARTMENT OF PATHOLOGY AND [address] [place] [address] Hepatic function panel (01/11/2019 3:30 AM IMPORT/EXPORT SPECIALIST)Only the most recent of2 resultswithin the time period is included. [facility] Albumin 1.5 (L) 3.5 - 5.0 g/dL [facility] Total bilirubin 0.8 0.0 - 1.2 [facility] mg/dL [facility] Bilirubin direct 0.4 (H) 0.0 - 0.3 [facility] mg/dL [facility] Alkaline phosphatase 163 (H) 40 - 129 U/L [facility] Protein 5.1 (L) 6.3 - 8.3 g/dL [facility] Comment: HOSPITAL [place] 4.6-7.0 g/dL 1 week 4.4-7.6 g/dL 7 months-1year5.1-7.3 g/dL 1-2 years5.6-7.5 g/dL >3 years6.0-8.0 g/dL 18-150 6.3-8.3 g/dL ALT 35 5 - 50 U/L [facility] AST 25 10 - 50 U/L [facility] Specimen Plasma specimen Performing Organization Address City/[facility] Phone Number [facility] DEPARTMENT OF PATHOLOGY AND [address] [place] [address] Hemoglobin & hematocrit (01/10/2019 8:10 PM IMPORT/EXPORT SPECIALIST)Only the most recent of4 resultswithin the time period is included. [facility] HGB 9.7 (L) 14.0 - 18.0 g/dL [facility] HCT 30.9 (L) 41.0 - 51.0 % [facility] Specimen Blood Performing Organization Address [facility] Phone Number [facility] DEPARTMENT OF PATHOLOGY AND [address] [place] [address] Troponin (01/10/2019 8:10 PM IMPORT/EXPORT SPECIALIST)Only the most recent of3 resultswithin the time period is included. [facility] Troponin <0.30 0.00 - 0.30 [facility] Comment: ng/mL HOSPITAL 0.30 - 1.49 ng/mlMay indicate increased risk of acute coronary syndrome. >=1.5 ng/mlConsistent with acute myocardial infarction. The diagnostic value of a single normal or non-diagnostic result is questionable.Serial samples at 2-6 hour intervals are required to rule out acute myocardial injury. Specimen Plasma specimen Performing Organization Address [facility] Phone Number [facility] DEPARTMENT OF PATHOLOGY AND [address] [place] [address] Hepatitis acute panel (01/10/2019 5:16 PM IMPORT/EXPORT SPECIALIST) [facility] Hepatitis A IgM Non-reactive Non-reactive [facility] Hepatitis B core Non-reactive Non-reactive [facility] Hepatitis B surface Non-reactive Non-reactive [facility] Hepatitis C Ab Non-reactive Non-reactive [facility] Specimen Serum Performing Organization Address [facility] Phone Number [facility] DEPARTMENT OF PATHOLOGY AND [address] [place] [address] T4 (01/10/2019 5:16 PM IMPORT/EXPORT SPECIALIST) T4 3.1 (L) 4.5 - 11.7 ug/dL [facility] Specimen Plasma specimen Performing Organization Address City/[facility] Phone Number [facility] DEPARTMENT OF PATHOLOGY AND [address] [place] [address] Lactic acid level, SEPSIS - Now and repeat 2x every 3 hours (01/10/2019 12:15 PM IMPORT/EXPORT SPECIALIST)Only the most recent of3 resultswithin the time period is included. Lactic acid 1.3 0.5 - 2.2 mmol/L [facility] Specimen Blood Performing Organization Address [facility] Phone Number [facility] DEPARTMENT OF PATHOLOGY AND [address] [place] [address] Sodium level, urine, random (01/10/2019 12:12 PM IMPORT/EXPORT SPECIALIST) Sodium, urine, random 81 mEq/L [facility] Specimen Urine Performing Organization Address [facility] Phone Number [facility] DEPARTMENT OF PATHOLOGY AND [address] [place] [address] Creatinine level, urine, random (01/10/2019 12:12 PM IMPORT/EXPORT SPECIALIST) Creatinine, urine, 98 mg/dL [facility] Specimen Urine Performing Organization Address [facility] Phone Number [facility] DEPARTMENT OF PATHOLOGY AND [address] [place] [address] Head Wo Contrast (01/10/2019 11:23 AM IMPORT/EXPORT SPECIALIST) Specimen Narrative Performed At EXAMINATION:CT HEAD [...] cells, correlate with physical exam for otomastoiditis. [id number] Procedure Note Hm Interface, Radiology Results Incoming - 01/10/2019 11:35 AM IMPORT/EXPORT SPECIALIST EXAMINATION: CT HEAD WO CONTRAST CLINICAL [...] cells, correlate with physical exam for otomastoiditis. [id number] Performing Organization Address City/State/Zipcode Phone Number [facility] [address] [place] [address] CT Abdomen Pelvis Wo Contrast (01/10/2019 11:23 AM IMPORT/EXPORT SPECIALIST) Specimen Narrative Performed At EXAMINATION:CT ABDOMEN [...] to suggest abscess. Bilateral lower lobe pneumonia. [id number] Procedure Note Interface, Radiology Results Incoming - 01/10/2019 12:05 PM IMPORT/EXPORT SPECIALIST EXAMINATION: CT ABDOMEN PELVIS WO CONTRAST [...] to suggest abscess. Bilateral lower lobe pneumonia. [id number] Performing Organization Address City/[facility]/Zipcode Phone Number [facility] [address] [place] [address] XR Picc Chest Portable (01/10/2019 11:00 AM IMPORT/EXPORT SPECIALIST) Specimen Narrative Performed At EXAMINATION:XR [facility]ST [facility] CLINICAL HISTORY:N91.2 Amenorrheaunspecified, Multiple IV meds COMPARISON:Chest x-ray 01/10/2019 IMPRESSION: Single frontal view reveals interval placement of a right-sided PICC line with tip overlying the SVC. The remainder of the examination is unchanged. [facility]-[id number] Procedure Note Interface, Radiology Results Incoming - 01/10/2019 11:04 AM IMPORT/EXPORT SPECIALIST EXAMINATION: XR PICC CHEST PORTABLE CLINICAL HISTORY: N91.2 Amenorrhea unspecified, Multiple IV meds COMPARISON: Chest x-ray 01/10/2019 IMPRESSION: Single frontal view reveals interval placement of a right-sided PICC line with tip overlying the SVC. The remainder of the examination is unchanged. [facility]-[id number] Performing Organization Address City/[facility] Phone Number [facility] [address] [place] [address] PICC insertion (01/10/2019 9:58 AM IMPORT/EXPORT SPECIALIST) Narrative Performed At Fredy Woodsoni 01/10/2019 10:04 AM PICC insertion Date/Time: 01/10/2019 9:58 AM Performed by: Don Riojas RN Authorized by: Nayely Flood MD Consent: Consent obtained:Verbal Consent given by:Patient Risks discussed: arterial puncture, incorrect placement, nerve damage, bleeding, infection, superficial thrombus and deep vein thrombus Alternatives discussed:No treatment and delayed treatment [place] protocol: Procedure explained and questions answered to [...] LDA): Patient position:Flat Vessel Size (mm):4 Indication:Known snf IV therapy Location:Right basilic Device Type:Non-valved Catheter size:5 Fr PICC Characteristics: Catheter Brand:Angiodynamic PowerPICC External Catheter Length (cm):0 Internal Catheter Length (cm):41 Total Catheter Length (cm):41 Catheter Lot Number:[id number] Catheter Expiration Date:09/11/2020 Procedure Details: Landmarks identified: [...] immediate complications Urine culture (01/10/2019 7:31 AM IMPORT/EXPORT SPECIALIST) Urine culture SEE COMMENTComment: [facility] Bacteriuria screen HOSPITAL negative. Specimen Performing Organization Address City/[facility] Phone Number [facility] DEPARTMENT OF PATHOLOGY AND [address] [place] [address] Urinalysis screen and microscopy, with reflex to culture (01/10/2019 7:24 AM IMPORT/EXPORT SPECIALIST) Specimen site Catheterized [facility] Color, UA Yellow [facility] Appearance, UA Clear [facility] Specific gravity, UA 1.054 (H) 1.001 - 1.035 [facility] pH, UA 5.0 5.0 - 8.5 [facility] Protein, UA Negative Negative [facility] Glucose, UA Negative Negative [facility] Ketones, UA Negative Negative [facility] Bilirubin, UA Negative Negative [facility] Blood, UA Negative Negative [facility] Nitrite, UA Negative Negative [facility] Urobilinogen, UA <2.0 <2.0 [facility] Leukocyte esterase, Negative Negative [facility] Epithelial cells, UA 1 /HPF [facility] WBC, UA 2 (H) 0 - 1 /HPF [facility] RBC, UA 5 0 - 5 /HPF [facility] Bacteria, UA Few None seen [facility] Yeast, UA None seen [facility] Yeast with None seen [facility] pseudohyphae, HOSPITAL Specimen Urine Performing Organization Address City/[facility]/Zipcode Phone Number [facility] DEPARTMENT OF PATHOLOGY AND [address] [place] [address] XR Abdomen 1 Vw Portable (01/10/2019 6:53 AM IMPORT/EXPORT SPECIALIST) Specimen Narrative Performed At EXAMINATION:XR ABDOMEN 1 VW PORTABLE [facility] CLINICAL HISTORY:ICU ptrecent abdominal surgery COMPARISON:None. IMPRESSION: Water-soluble contrast material is noted in the stomach and proximal small bowel which is not dilated.There is an ostomy in the right lower quadrant.There is no significant colonic material identified.There is contrast in the urinary bladder. [facility]-[id number] Procedure Note Interface, Radiology Results Incoming - 01/10/2019 7:46 AM IMPORT/EXPORT SPECIALIST EXAMINATION: XR ABDOMEN 1 VW PORTABLE CLINICAL HISTORY: ICU pt recent abdominal surgery COMPARISON: None. IMPRESSION: Water-soluble contrast material is noted in the stomach and proximal small bowel which is not dilated. There is an ostomy in the right lower quadrant. There is no significant colonic material identified. There is contrast in the urinary bladder. [facility]-[id number] Performing Organization Address City/State/Zipcode Phone Number [facility] [address] [place] [address] Echocardiogram complete w contrast and 3D if needed (01/10/2019 6:28 AM IMPORT/EXPORT SPECIALIST) Specimen Narrative Performed At [facility] Echocardiography Report [address] [facility] [address], [place] [address] Pat.Name:GAUTAM RAMIREZ Pat.ID:[id number] .Date: 01/10/2019Refer.MD:NAYELY FLOOD MD Exam Time: 5:52:00 AMStudy Type:Routine Echo Height:72.99in Weight:154.66lb BSA: 1.93 m2 DOBAge:1940,78Y Sex: MALEBP:120/58 HR:83 bpmSonogrphr: IRVING Mendoza Pat. Stat.:Inpatient Room:[place] [address] Study Status:Final Echo Event ID:[id number] Order ID:[id number] Reason for Study:AFIB, elevated BNP Procedures:2D Echo, Colorflow Doppler, Strain, Portable, Stat Race: SUMMARY: LV EF is severely depressed. Inferoposterior CA Tethered posterior mitral leaflet with Moderate mitral regurgitation. FINDINGS: LV: LV size is qqlzoiyo-ss-exlqjyof enlarged. LV EF is severely depressed.Estimated EF [...] of 5-10 mmHg. MEASUREMENTS: 2D Parasternal [place] Ds4.5 cmLVPWd1.1 cm LVOT 2.3 cmAo An2.3 cm LVIDd6.5 cmIndex3.3 cm/m Ao Rtd 3.6 cm Index1.9 cm/m LVIDs5.3 cm LV Ofri965 g(122-174) LV%fs 18.5 % LVM Lmjfh898.8 g/m2 IVSd 1.1 cmRWT0.3 LA Sng Plane [...] TVI47.6 cm AV Mean G 13.8 mmHgAVpkAcRt 94986.1 cm/s2 AV AC100 msec (83-118) AV Area-Cont. Eq. LVOT Area3.8 cm2 AV TVI47.6 cm LVOT TVI15.7 cmAV Area1.3 cm2(3-5) AV SV 59.8 ml For Flow/Valve Assess VdMrk843.5 cm/sTVI 48.7 cm MnPG13.5 mmHg WALL MOTION: [...] Radiology Results In - 01/10/2019 10:39 AM IMPORT/EXPORT SPECIALIST Echocardiography Report [address] [place] [address] Pat.Name: GAUTAM RAMIREZ Pat.ID: [id number] .Date: 01/10/2019 Refer.MD: NAYELY FLOOD MD Exam Time: 5:52:00 AM Study Type:Routine Echo Height: 72.99in Weight: 154.66lb BSA: 1.93 m2 Age: 5 1940,78Y Sex: MALE BP: 120/58 HR: 83 bpm Sonogrphr: IRVING Mendoza Pat. Stat.:Inpatient Room: [place] [address] Study Status:Final Echo Event ID:[id number] Order ID: [id number] Reason for Study:AFIB, elevated BNP Procedures:2D Echo, Colorflow Doppler, Strain, Portable, Stat Race: SUMMARY: LV EF is severely depressed. Inferoposterior CA Tethered posterior mitral leaflet with Moderate mitral regurgitation. FINDINGS: LV: LV size is qxqldjmu-fj-kofevryl enlarged. LV EF is severely depressed. Estimated [...] of 5-10 mmHg. MEASUREMENTS: 2D Parasternal [place] Ds 4.5 cm LVPWd 1.1 cm [...] cm AV Mean G 13.8 mmHg AVpkAcRt 37629.1 cm/s2 AV AC 100 msec (83-118) AV [...] Performing Organization Address City/State/Zipcode Phone Number [facility] [address] [place] [address] Respiratory pathogen panel (01/10/2019 3:45 AM IMPORT/EXPORT SPECIALIST) [facility] Respiratory Negative for all pathogens tested: [place] pathogen panel Negative for Adenovirus [facility] Negative for Coronavirus HKU1 [facility] Negative for Coronavirus NL63 Negative for Coronavirus [...] Specimen Nares - Right Performing Organization Address City/[facility] Phone Number [facility] DEPARTMENT OF PATHOLOGY AND [address] [place] [address] Gastrointestinal panel (01/10/2019 3:45 AM IMPORT/EXPORT SPECIALIST) [facility] Gastrointestinal panel Positive for Giardia intestinalis (lamblia) [place] B[facility] Negative for all other pathogens tested: HOSPITAL [...] Specimen Stool - Nonpreserved Performing Organization Address City/[facility] Phone Number [facility] DEPARTMENT OF PATHOLOGY AND [address] [place] [address] [place] [address] Occult blood, stool (01/10/2019 3:45 AM IMPORT/EXPORT SPECIALIST) Occult blood, Positive for Occult blood (A) [facility] stool Comment: HOSPITAL Specimen Information Specimen Source: Stool Specimen Site: Nonpreserved Specimen Stool - Nonpreserved Performing Organization Address City/[facility] Phone Number [facility] DEPARTMENT OF PATHOLOGY AND [address] [place] [phone] [place] [phone] Blood culture, aerobic & anaerobic (01/10/2019 3:45 AM IMPORT/EXPORT SPECIALIST) [facility] Blood culture No growth after 5 days of incubation. [facility] isolate Comment: HOSPITAL Specimen Information Specimen Source: Blood Specimen Site: Forearm, left Specimen Blood - Forearm, left Performing Organization Address [facility] Phone Number [facility] DEPARTMENT OF PATHOLOGY AND [address] [place] [address] [address] Fibrinogen (01/10/2019 3:45 AM IMPORT/EXPORT SPECIALIST) Pathologist [facility] Fibrinogen 284 200 - 450 mg/dL [facility] Specimen Blood Performing Organization Address [facility] Phone Number [facility] DEPARTMENT OF PATHOLOGY AND [address] [place] [phone] D-dimer (01/10/2019 3:45 AM IMPORT/EXPORT SPECIALIST) [facility] D-dimer 6.04 (H) 0.00 - 0.40 [facility] Comment: ug/mL [facility] Units are ug/ml [...] and malignancies. Specimen Blood Performing Organization Address City/[facility] Phone Number [facility] DEPARTMENT OF PATHOLOGY AND [address] [place] [phone] [address] Type and screen (01/10/2019 3:45 AM IMPORT/EXPORT SPECIALIST)Only the most recent of2 resultswithin the time period is included. ABO grouping A [facility] Rh type POS [facility] Antibody screen (gel) NEG [facility] Specimen Blood Performing Organization Address City/[facility] Phone Number [facility] DEPARTMENT OF PATHOLOGY AND [address] [place] [phone] [place] [phone] Lipase level (01/10/2019 3:45 AM IMPORT/EXPORT SPECIALIST) Lipase 42 13 - 60 U/L [facility] Specimen Plasma specimen Performing Organization Address City/[facility] Phone Number [facility] DEPARTMENT OF PATHOLOGY AND [address] [place] [phone] [address] Lactic acid level (01/10/2019 3:45 AM IMPORT/EXPORT SPECIALIST) Lactic acid 2.5 (H) 0.5 - 2.2 mmol/L [facility] Specimen Plasma specimen Performing Organization Address [facility] Phone Number [facility] DEPARTMENT OF PATHOLOGY AND [address] [place], [place] [phone] [address] [address] Creatine kinase, total (CPK) (01/10/2019 3:45 AM IMPORT/EXPORT SPECIALIST) Creatine kinase 23 (L) 39 - 308 U/L [facility] Specimen Plasma specimen Performing Organization Address City/[facility]/Zipcode Phone Number [facility] DEPARTMENT OF PATHOLOGY AND [address] [place] [phone] [address] Amylase level (01/10/2019 3:45 AM IMPORT/EXPORT SPECIALIST) Amylase 25 (L) 28 - 100 U/L [facility] Specimen Plasma specimen Performing Organization Address City/[facility]/Zipcode Phone Number [facility] DEPARTMENT OF PATHOLOGY AND [address] [place] [phone] [address] Surgical pathology request (11/22/2018 5:30 PM IMPORT/EXPORT SPECIALIST)Only the most recent of2 resultswithin the time period is included. [facility] DEPARTMENT OF PATHOLOGY AND GENOMIC MEDICINE Surgical pathology See link below [facility] DEPARTMENT OF report for PDF Lab PATHOLOGY AND Report GENOMIC MEDICINE Result status This is Final [facility] DEPARTMENT OF Report for PATHOLOGY AND [id number] GENOMIC MEDICINE Specimen Performing Organization Address City/[facility]ode Phone Number [facility] DEPARTMENT OF PATHOLOGY AND [address] [place] [address] GENOMIC MEDICINE Transfuse RBC (11/22/2018 5:20 PM IMPORT/EXPORT SPECIALIST)Only the most recent of2 resultswithin the time period is included.Sodium level, syringe (11/21/2018 8:25 AM IMPORT/EXPORT SPECIALIST) Sodium, syringe 144 135 - 148 mEq/L [facility] Specimen Blood Performing Organization Address City/[facility] Phone Number [facility] DEPARTMENT OF PATHOLOGY AND [address] [place] [phone] Potassium, syringe (11/21/2018 8:25 AM IMPORT/EXPORT SPECIALIST) Potassium, syringe 3.3 (L) 3.5 - 5.0 mEq/L [facility] Specimen Blood Performing Organization Address City/[facility] Phone Number [facility] DEPARTMENT OF PATHOLOGY AND [address] [place] [phone] Lactic acid, syringe (11/21/2018 8:25 AM IMPORT/EXPORT SPECIALIST) Lactic acid, syringe 0.9 0.5 - 2.2 mmol/L [facility] Specimen Blood Performing Organization Address City/[facility]/Zipcode Phone Number [facility] DEPARTMENT OF PATHOLOGY AND [address] [place] [address] Ionized calcium, arterial (11/21/2018 8:25 AM IMPORT/EXPORT SPECIALIST) Ionized calcium, 1.05 (L) 1.11 - 1.32 [facility] arterial mmol/L HOSPITAL Specimen Blood Performing Organization Address City/[facility]/Zipcode Phone Number [facility] DEPARTMENT OF PATHOLOGY AND [address] [place] [phone] [address] Hemoglobin, syringe (11/21/2018 8:25 AM IMPORT/EXPORT SPECIALIST) Hemoglobin, syringe 11.7 (L) 14.0 - 18.0 g/dL [facility] Specimen Blood Performing Organization Address City/[facility] Phone Number [facility] DEPARTMENT OF PATHOLOGY AND [address] [place] [phone] [place] [phone] Glucose level, syringe (11/21/2018 8:25 AM IMPORT/EXPORT SPECIALIST) Glucose, syringe 85 65 - 99 mg/dL [facility] Specimen Blood Performing Organization Address [facility] Phone Number [facility] DEPARTMENT OF PATHOLOGY AND [address] [place] [phone] [address] Arterial blood gas (11/21/2018 8:25 AM IMPORT/EXPORT SPECIALIST) [facility] pH, arterial 7.37 7.35 - 7.45 [facility] pCO2, arterial 36 35 - 45 mmHg [facility] pO2, arterial 196 (H) 80 - 90 mmHg [facility] Bicarbonate, 20.4 (L) 21.0 - 28.0 [facility] mmol/L [facility] Base excess, -4 (L) -2 - 2 mEq/L [facility] O2 saturation, 99 95 - 100 % [facility] Specimen Blood Performing Organization Address City/[facility]ode Phone Number [facility] DEPARTMENT OF PATHOLOGY AND [address] [place], [place] [phone] [address] [address] ECG Pre/Post Op (11/15/2018 1:02 PM IMPORT/EXPORT SPECIALIST) Ventricular rate 68 [facility] Atrial rate 68 [facility] VT interval 248 [facility] QRSD interval 110 [...] At Performing Organization Address City/State/Zipcode Phone Number [facility] MUSE [address] [place] [address] Carcinoembryonic antigen (CEA) (11/15/2018 12:52 PM IMPORT/EXPORT SPECIALIST) CEA 2.8 0.0 - 3.8 [facility] Comment: ng/mL [facility] Reference range for heavy smokers:0.0 - 5.5 ng/mL The JENNY Kathie 8000 CEA immunoassay was used. Results obtained with different assay methods or kits should not be used interchangeably and may be different. Specimen Serum Performing Organization Address City/[facility] Phone Number [facility] DEPARTMENT OF PATHOLOGY AND [address] [place] [address] Prepare RBC (11/15/2018 12:43 PM IMPORT/EXPORT SPECIALIST)Only the most recent of2 resultswithin the time period is included. Product name Red Blood Cells [facility] -1, Leukored [facility] Unit number [id number] [facility] Product code [id number] [facility] Dispense status Transfused [facility] Blood expiration [facility] Blood type code 6200 [facility] Blood type A POSITIVE [facility] Product name Red Blood Cells [facility] -[facility], Leukored [facility] Unit number [id number] [facility] Product code [id number] [facility] Dispense status Returned to BB not [facility] Blood expiration [facility] Blood type code 6200 [facility] Blood type A POSITIVE [facility] Specimen Performing Organization Address City/State/Zipcode Phone Number [facility] DEPARTMENT OF PATHOLOGY AND [address] [place] [phone] after 07/23/2018 Additional Health Concerns Infection Noted Time Resolved Time MRSA (C) 01/12/2019 12:19 PM IMPORT/EXPORT SPECIALIST Advance Directives For more information, please contact: [phone] Type Date Recorded 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
--- OUTSIDE RECORDS SUMMARY | 2019-07-24 10:39 | XMS REPORT | Clinical Summary ---
:1940 Author Organization [facility] Address [address] [place] [address] Care Team Providers Name Role Phone Paula [...] Not on file Results Not on fileafter 07/23/2018 Insurance Payer Benefit Plan / Subscriber ID Type Phone Address Group [employer] - MEDICARE AET[employer] MEDICARE HMO xxxxxxxx [phone] [address] [place] [address] (Home) [place] [address]
[2019-07-24] MEDS ORDERED: PHENYLEPHRINE 0.5% NOSE 15ML NAS ONE (12:54)
[2019-07-24 13:13] LABS: Hematocrit 31.7 % (39.6-49.0); RBC Red Blood Cell Count 3.07 M/uL (4.33-5.43)
[2019-07-24 13:16] LABS: Protime INR 1.35
--- NOTE | 2019-07-24 13:30 | ER ---
Nurse's Notes [facility] Name: Gautam Ramirez Jr Age: 79 yrs Sex: Male : 1940 Arrival Date: 07/24/2019 Time: 10:36 Bed Treatment Private MD: Diagnosis: Epistaxis Presentation: 07/24 10:52 Presenting complaint: Patient states: bleeding to left nostril since 6 am, is currently iw on eliquis and ASA. Transition of care: patient was not received from another setting of care. Onset of symptoms was July 24, 2019. Risk Assessment: Do you want to hurt yourself or someone else? Patient reports no desire to harm self or others. Initial Sepsis Screen: Does the patient meet any 2 criteria? No. Patient's initial sepsis screen is negative. Does the patient have a suspected source of infection? No. Patient's initial sepsis screen is negative. Care prior to arrival: None. 10:52 Method Of Arrival: Wheelchair iw 10:52 Acuity: BENIGNO 3 iw Historical: - Allergies: 10:55 No Known Allergies; iw - Home Meds: 10:55 allopurinol 300 mg Oral tab 1 tab once daily [Active]; levothyroxine 50 mcg tab 1 tab iw once daily [Active]; lisinopril 2.5 mg Oral tab 1 tab once daily [Active]; atorvastatin 40 mg Oral tab 1 tab once daily [Active]; isosorbide mononitrate 30 mg Oral Tb24 1 tab once daily [Active]; furosemide 40 mg Oral tab 1 tab once daily [Active]; potassium chloride 20 mEq Oral TbTQ 1 tab once daily [Active]; Eliquis 2.5 mg oral tab 1 tab 2 times per day [Active]; aspirin 81 mg Oral TbEC 1 tab once daily [Active]; tramadol 50 mg Oral tab [Active]; zinc sulfate 220 (50) mg Oral cap daily [Active]; - PMHx: 10:55 CAD; Hyperlipidemia; Hypertension; iw - PSHx: 10:55 Angioplasty; colon surgery; stents; iw - Immunization history:: Adult Immunizations Adult Immunizations up to date. - Social history:: Smoking status: Patient/guardian denies using tobacco, Patient/guardian denies using alcohol, street drugs, The patient lives with family. - Ebola Screening: : Patient negative for fever greater than or equal to 101.5 degrees Fahrenheit, and additional compatible Ebola Virus Disease symptoms Patient denies exposure to infectious person Patient denies travel to an Ebola-affected area in the 21 days before illness onset No symptoms or risks identified at this time. - Family history:: not pertinent. Screenin:37 Abuse screen: Denies threats or abuse. Denies injuries from another. Nutritional iw screening: No deficits noted. Tuberculosis screening: No symptoms or risk factors identified. Fall Risk Fall in past 12 months (25 points). Assessment: 12:36 General: Appears in no apparent distress. Behavior is calm, cooperative. Pain: Denies iw pain. Neuro: Level of Consciousness is awake, alert, obeys commands. Respiratory: Airway is patent Respiratory effort is even, unlabored. EENT: Nares with bleeding noted on left. Derm: Skin is intact, is fragile, is thin. 13:40 Reassessment: Patient appears in no apparent distress at this time. Patient and/or ss family updated on plan of care and expected duration. Pain level reassessed. Patient is alert, oriented x 3, equal unlabored respirations, skin warm/dry/pink. Vital Signs: 10:55 BP 89 / 59; Pulse 76; Resp 16 S; Temp 97.8; Pulse Ox 99% on R/A; Weight 78.47 kg; iw Height 6 ft. 1 in. (185.42 cm); Pain 0/10; 10:55 Body Mass Index 22.82 (78.47 kg, 185.42 cm) iw ED Course: 10:36 Patient arrived in ED. as 10:53 Triage completed. iw 10:55 Arm band placed on. iw 12:32 Kassidy Atkins, RN is Primary Nurse. iw 12:38 Matthew Corral MD is Attending Physician. ma2 12:57 Initial lab(s) drawn, by me, sent to lab. kj1 13:00 Patient has correct armband on for positive identification. Bed in low position. Call ss light in reach. 13:08 PT-INR Sent. kj1 13:08 CBC w/o diff Sent. kj1 13:40 No provider procedures requiring assistance completed. Patient did not have IV access ss during this emergency room visit. Administered Medications: 12:56 Drug: Afrin Drops (0.05 %) 1 sprays {Note: ADMINISTERED BY DR. CORRAL .} Route: ss Intranasal; Site: left nare; Outcome: 13:29 Discharge ordered by . nithya 13:40 Discharged to home via wheelchair. 13:40 Condition: good 13:40 Discharge instructions given to patient, Instructed on discharge instructions, follow up and referral plans. medication usage, Demonstrated understanding of instructions, follow-up care, medications, Prescriptions given X 1. 13:43 Patient left the ED. Signatures: Kelley Herrmann Irene, RN RN Linda Red RN RN Matthew Corral MD MD ma2 Lorie Levin kj1
--- NOTE | 2019-07-24 13:31 | EDPHYS ---
Physician Documentation [facility] Name: Gauatm Ramirez Jr Age: 79 yrs Sex: Male : 1940 Arrival Date: 07/24/2019 Time: 10:36 Bed Treatment Private MD: ED Physician Matthew Corral HPI: 07/24 13:27 This 79 yrs old Male presents to ER via Wheelchair with complaints of Nose ma2 Bleed. 13:27 The patient presents with a nose bleed. Onset: The symptoms/episode began/occurred ma2 suddenly, 2 hour(s) ago. Associated signs and symptoms: The patient has no apparent associated signs or symptoms. Severity of symptoms: At their worst the symptoms were very mild in the emergency department the symptoms have resolved. The patient has experienced similar episodes in the past. 13:27 on aliquis and asa. ma2 Historical: - Allergies: 10:55 No Known Allergies; iw - Home Meds: 10:55 allopurinol 300 mg Oral tab 1 tab once daily [Active]; levothyroxine 50 mcg tab 1 tab iw once daily [Active]; lisinopril 2.5 mg Oral tab 1 tab once daily [Active]; atorvastatin 40 mg Oral tab 1 tab once daily [Active]; isosorbide mononitrate 30 mg Oral Tb24 1 tab once daily [Active]; furosemide 40 mg Oral tab 1 tab once daily [Active]; potassium chloride 20 mEq Oral TbTQ 1 tab once daily [Active]; Eliquis 2.5 mg oral tab 1 tab 2 times per day [Active]; aspirin 81 mg Oral TbEC 1 tab once daily [Active]; tramadol 50 mg Oral tab [Active]; zinc sulfate 220 (50) mg Oral cap daily [Active]; - PMHx: 10:55 CAD; Hyperlipidemia; Hypertension; iw - PSHx: 10:55 Angioplasty; colon surgery; stents; iw - Immunization history:: Adult Immunizations Adult Immunizations up to date. - Social history:: Smoking status: Patient/guardian denies using tobacco, Patient/guardian denies using alcohol, street drugs, The patient lives with family. - Ebola Screening: : Patient negative for fever greater than or equal to 101.5 degrees Fahrenheit, and additional compatible Ebola Virus Disease symptoms Patient denies exposure to infectious person Patient denies travel to an Ebola-affected area in the 21 days before illness onset No symptoms or risks identified at this time. - Family history:: not pertinent. ROS: 13:27 Constitutional: Negative for fever, chills, and weight loss. ma2 13:27 All other systems are negative. Exam: 13:27 Constitutional: This is a well developed, well nourished patient who is awake, alert, ma2 and in no acute distress. Head/Face: Normocephalic, atraumatic. Eyes: Pupils equal round and reactive to light, extra-ocular motions intact. Lids and lashes normal. Conjunctiva and sclera are non-icteric and not injected. Cornea within normal limits. Periorbital areas with no swelling, redness, or edema. ENT: no active epistaxis at this time, Nares patent. No nasal discharge, no septal abnormalities noted. Tympanic membranes are normal and external auditory canals are clear. Oropharynx with no redness, swelling, or masses, exudates, or evidence of obstruction, uvula midline. Mucous membranes moist. Neck: Trachea midline, no thyromegaly or masses palpated, and no cervical lymphadenopathy. Supple, full range of motion without nuchal rigidity, or vertebral point tenderness. No Meningismus. Chest/axilla: Normal chest wall appearance and motion. Nontender with no deformity. No lesions are appreciated. Cardiovascular: Regular rate and rhythm with a normal S1 and S2. No gallops, murmurs, or rubs. Normal PMI, no JVD. No pulse deficits. Respiratory: Lungs have equal breath sounds bilaterally, clear to auscultation and percussion. No rales, rhonchi or wheezes noted. No increased work of breathing, no retractions or nasal flaring. Abdomen/GI: Soft, non-tender, with normal bowel sounds. No distension or tympany. No guarding or rebound. No evidence of tenderness throughout. Vital Signs: 10:55 BP 89 / 59; Pulse 76; Resp 16 S; Temp 97.8; Pulse Ox 99% on R/A; Weight 78.47 kg; iw Height 6 ft. 1 in. (185.42 cm); Pain 0/10; 10:55 Body Mass Index 22.82 (78.47 kg, 185.42 cm) iw MDM: 12:38 Patient medically screened. ma2 13:27 Differential diagnosis: sinusitis, epistaxis r/t trauma, spontaneous epistaxis. Data ma2 reviewed: vital signs, nurses notes. Counseling: I had a detailed discussion with the patient and/or guardian regarding: the historical points, exam findings, and any diagnostic results supporting the discharge/admit diagnosis, the presence of at least one elevated blood pressure reading (>120/80) during this emergency department visit, the need for outpatient follow up. Response to treatment: the patient's symptoms have resolved after treatment. 07/24 12:39 Order name: CBC w/o diff; Complete Time: 13:27 ma2 07/24 12:39 Order name: PT-INR; Complete Time: 13:27 ma2 Administered Medications: 12:56 Drug: Afrin Drops (0.05 %) 1 sprays {Note: ADMINISTERED BY DR. CORRAL .} Route: ss Intranasal; Site: left nare; Disposition: 07/24/19 13:29 Discharged to Home. Impression: Epistaxis. - Condition is Stable. - Discharge Instructions: Nosebleed, Adult. - Prescriptions for Afrin (oxymetazoline) 0.05 % Nasal Aerosol, Paron - spray 2 spray by INTRANASAL route 2 times per day; 1 Container. - Medication Reconciliation Form, Thank You Letter, Antibiotic Education, Prescription Opioid Use form. - Follow up: Private Physician; When: Tomorrow; Reason: If symptoms return, Continuance of care. - Problem is new. - Symptoms are resolved. Signatures: Dispatcher [employer] Kassidy Redman RN RN Linda Red RN RN Matthew Corral MD MD ma2 Corrections: (The following items were deleted from the chart) 13:29 13:29 07/24/2019 13:29 Discharged to Home. Impression: Epistaxis. Condition is Stable. ma2 Prescriptions for Afrin (oxymetazoline) 0.05 % Nasal Aerosol, Paron - spray 2 spray by INTRANASAL route 2 times per day; 1 Container. and Forms are Medication Reconciliation Form, Thank You Letter, Antibiotic Education, Prescription Opioid Use. Follow up: Private Physician; When: Tomorrow; Reason: If symptoms return, Continuance of care. ma2 13:43 13:29 07/24/2019 13:29 Discharged to Home. Impression: Epistaxis. Condition is Stable. ss Prescriptions for Afrin (oxymetazoline) 0.05 % Nasal Aerosol, Paron - spray 2 spray by INTRANASAL route 2 times per day; 1 Container. and Forms are Medication Reconciliation Form, Thank You Letter, Antibiotic Education, Prescription Opioid Use. Follow up: Private Physician; When: Tomorrow; Reason: If symptoms return, Continuance of care. Problem is new. Symptoms are resolved. ma2
[2019-07-24 13:49] VITALS: BP 89/59; TEMP 97.8; O2SAT 99
== END 2019-07-24 13:43 | disposition home or self-care (01) ==
LOC: ER 10:35
DX: R04.0 Epistaxis (principal); E78.5 Hyperlipidemia, unspecified; I25.10 Atherosclerotic heart disease of native coronary artery without angina pectoris
CPT/HCPCS: 36415; 85027; 85610; 99283

== ENCOUNTER 2019-11-16 03:02 | Emergency (ER) | payer OTHER ==
[2019-11-16] MEDS ORDERED: LIDOCAINE JELLY 2%- 5 ML TUBE ONE (03:30)
--- NOTE | 2019-11-16 03:32 | ER ---
Nurse's Notes [facility] Name: Gautam Ramirez Jr Age: 79 yrs Sex: Male : 1940 Arrival Date: 11/16/2019 Time: 03:06 Bed 14 Private MD: Diagnosis: Blister (nonthermal) of foot Presentation: 11/16 03:24 Presenting complaint: Patient states: blister on top of left foot came open yesterday. sg The pt then had a pedicure with a salt scrub and the pain became worse. Pt states there is a shooting pain that is intermittent and is rated at a 10 at its worst. Transition of care: patient was not received from another setting of care. Onset of symptoms was November 16, 2019. Initial Sepsis Screen: Does the patient meet any 2 criteria? HR > 90 bpm. No. Patient's initial sepsis screen is negative. Does the patient have a suspected source of infection? No. Patient's initial sepsis screen is negative. 03:24 Method Of Arrival: Wheelchair sg 03:24 Acuity: BENIGNO 4 sg 03:33 Risk Assessment: Do you want to hurt yourself or someone else? Patient reports no iw desire to harm self or others. Care prior to arrival: None. Triage Assessment: 04:23 General: Appears in no apparent distress. Behavior is calm, cooperative. iw Historical: - Allergies: 03:28 No Known Allergies; sg - Home Meds: 03:32 Vitamin D Oral 5000 unit [Active]; levothyroxine 50 mcg tab 1 tab once daily [Active]; sg atorvastatin 40 mg Oral tab 1 tab once daily [Active]; isosorbide mononitrate 30 mg Oral Tb24 1 tab once daily [Active]; allopurinol 300 mg Oral tab 1 tab once daily [Active]; tramadol 50 mg Oral tab [Active]; furosemide 40 mg Oral tab 1 tab once daily [Active]; aspirin 81 mg Oral TbEC 1 tab once daily [Active]; pantoprazole 40 mg Oral TbEC 1 tab once daily [Active]; - PMHx: 03:32 CAD; Hyperlipidemia; Hypertension; sg - PSHx: 03:32 Colostomy; sg - Immunization history:: Adult Immunizations. - Social history:: Smoking status: . - Ebola Screening: : Patient negative for fever greater than or equal to 101.5 degrees Fahrenheit, and additional compatible Ebola Virus Disease symptoms Patient denies exposure to infectious person Patient denies travel to an Ebola-affected area in the 21 days before illness onset No symptoms or risks identified at this time. Screenin:35 Abuse screen: Denies threats or abuse. Denies injuries from another. Nutritional sg screening: No deficits noted. Tuberculosis screening: No symptoms or risk factors identified. Never had TB. Fall Risk None identified. Assessment: 03:38 Reassessment: Patient appears in no apparent distress at this time. Patient and/or sg family updated on plan of care and expected duration. Pain level reassessed. Patient is alert, oriented x 3, equal unlabored respirations, skin warm/dry/pink. 04:15 Reassessment: pt states pain is returning, Dr. Myers notified, verbal order for Hayti iw 5 mg PO X 1 to be given now. 04:15 Pain: Complains of pain in dorsum of left foot. iw 04:23 Reassessment: Patient appears in no apparent distress at this time. iw Vital Signs: 03:37 BP 113 / 78; Pulse 90; Resp 17; Temp 97.2; Pulse Ox 99% on R/A; Pain 6/10; sg ED Course: 03:06 Patient arrived in ED. cf2 03:12 Al Myers MD is Attending Physician. ps1 03:26 Triage completed. sg 03:37 Arm band placed on. sg 03:40 Patient has correct armband on for positive identification. iw 03:40 No provider procedures requiring assistance completed. Patient did not have IV access sg during this emergency room visit. Dressings: non-adherent dressing x 1 dorsum of left foot Tegaderm X 1; dorsum of left foot. Wound care: Lidocaine Jelly applied as ordered by ERP to the dorsal aspect of the pt left foot, dressed with non adherent and tegadermx1. 03:46 Eliezer Amaya RN is Primary Nurse. sg 04:28 Primary Nurse role handed off by Eliezer Amaya RN iw Administered Medications: 04:15 Drug: Hayti 5 mg-325 mg 1 tabs Route: PO; iw 04:29 Follow up: Response: No adverse reaction iw Outcome: 03:31 Discharge ordered by . ps1 04:24 Patient left the ED. sg 04:24 Discharged to home via wheelchair, with family. iw 04:24 Condition: good 04:24 Discharge instructions given to patient, family, Instructed on discharge instructions, follow up and referral plans. Demonstrated understanding of instructions, follow-up care. 04:31 Patient left the ED. iw Signatures: Eliezer Amaya RN HERO Kassidy Atkins RN RN iw Al Myers MD MD ps1 [place], [place] cf2 Corrections: (The following items were deleted from the chart) 04:27 04:23 Pain: Complains of pain in dorsum of left foot iw iw
--- NOTE | 2019-11-16 03:33 | EDPHYS ---
Physician Documentation [facility] Name: Gautam Ramirez Jr Age: 79 yrs Sex: Male : 1940 Arrival Date: 11/16/2019 Time: 03:06 Bed 14 Private MD: ED Physician Al Myers HPI: 11/16 03:23 This 79 yrs old Male presents to ER via Unassigned with complaints of Leg ps1 Pain. 03:23 patient had a blister on the dorsal aspect of left foot. Patient went and had a ps1 pedicure after the roof of the blister erupted. Soaked in salt water and area became painful and has been since. No obvious signs of infection. There is a demarcated ring c/w blister on foot without roof. . Historical: - Allergies: 03:28 No Known Allergies; sg - Home Meds: 03:32 Vitamin D Oral 5000 unit [Active]; levothyroxine 50 mcg tab 1 tab once daily [Active]; sg atorvastatin 40 mg Oral tab 1 tab once daily [Active]; isosorbide mononitrate 30 mg Oral Tb24 1 tab once daily [Active]; allopurinol 300 mg Oral tab 1 tab once daily [Active]; tramadol 50 mg Oral tab [Active]; furosemide 40 mg Oral tab 1 tab once daily [Active]; aspirin 81 mg Oral TbEC 1 tab once daily [Active]; pantoprazole 40 mg Oral TbEC 1 tab once daily [Active]; - PMHx: 03:32 CAD; Hyperlipidemia; Hypertension; sg - PSHx: 03:32 Colostomy; sg - Immunization history:: Adult Immunizations. - Social history:: Smoking status: . - Ebola Screening: : Patient negative for fever greater than or equal to 101.5 degrees Fahrenheit, and additional compatible Ebola Virus Disease symptoms Patient denies exposure to infectious person Patient denies travel to an Ebola-affected area in the 21 days before illness onset No symptoms or risks identified at this time. ROS: 03:23 Constitutional: Negative for fever, chills, and weight loss, Eyes: Negative for injury, ps1 pain, redness, and discharge, MS/Extremity: Negative for injury and deformity, Neuro: Negative for headache, weakness, numbness, tingling, and seizure. 03:23 Skin: Positive for blister on foot. Exam: 03:23 Constitutional: This is a well developed, well nourished patient who is awake, alert, ps1 and in no acute distress. Head/Face: Normocephalic, atraumatic. Eyes: Pupils equal round and reactive to light, extra-ocular motions intact. Lids and lashes normal. Conjunctiva and sclera are non-icteric and not injected. Cardiovascular: Regular rate and rhythm. No gallops, murmurs, or rubs. Normal PMI, no JVD. No pulse deficits. Respiratory: Lungs have equal breath sounds bilaterally, clear to auscultation and percussion. No rales, rhonchi or wheezes noted. No increased work of breathing, no retractions or nasal flaring. MS/ Extremity: Pulses equal, no cyanosis. Neurovascular intact. Full, normal range of motion. Neuro: Awake and alert, GCS 15, oriented to person, place, time, and situation. Cranial nerves II-XII grossly intact. Sensory grossly intact. 03:23 Abdomen/GI: Inspection: colostomy. appears normal. 03:23 Skin: Appearance: normal except for affected area, blister with subcutaneous exposed. No signs of cellulitis. Vital Signs: 03:37 BP 113 / 78; Pulse 90; Resp 17; Temp 97.2; Pulse Ox 99% on R/A; Pain 6/10; sg MDM: 03:23 Data reviewed: vital signs, nurses notes, and as a result, I will discharge patient. ps1 Counseling: I had a detailed discussion with the patient and/or guardian regarding: the historical points, exam findings, and any diagnostic results supporting the discharge/admit diagnosis, to return to the emergency department if symptoms worsen or persist or if there are any questions or concerns that arise at home. ED course: applied lidocaine and dressed. Precautions given. Stable for dc. . 03:31 Patient medically screened. ps1 Administered Medications: 04:15 Drug: [place] 5 mg-325 mg 1 tabs Route: PO; iw 04:29 Follow up: Response: No adverse reaction iw Disposition: 11/16/19 03:31 Discharged to Home. Impression: Blister (nonthermal) of foot. - Condition is Stable. - Discharge Instructions: Blisters, Adult. - Medication Reconciliation Form, Thank You Letter, Antibiotic Education, Prescription Opioid Use form. - Follow up: Private Physician; When: As needed; Reason: Fever > 102 F, Recheck today's complaints, Continuance of care, Re-evaluation by your physician. Follow up: Emergency Department; When: As needed; Reason: Fever > 102 F, Worsening of condition. - Problem is new. - Symptoms have improved. Signatures: Eliezer Amaya RN RN sg aKssidy Atkins RN RN iw Al Myers MD MD ps1 Corrections: (The following items were deleted from the chart) 04:24 03:31 11/16/2019 03:31 Discharged to Home. Impression: Blister (nonthermal) of foot. sg Condition is Stable. Forms are Medication Reconciliation Form, Thank You Letter, Antibiotic Education, Prescription Opioid Use. Follow up: Private Physician; When: As needed; Reason: Fever > 102 F, Recheck today's complaints, Continuance of care, Re-evaluation by your physician. Follow up: Emergency Department; When: As needed; Reason: Fever > 102 F, Worsening of condition. Problem is new. Symptoms have improved. ps1 04:31 04:24 11/16/2019 03:31 Discharged to Home. Impression: Blister (nonthermal) of foot. iw Condition is Stable. Discharge Instructions: Blisters, Adult. Forms are Medication Reconciliation Form, Thank You Letter, Antibiotic Education, Prescription Opioid Use. Follow up: Private Physician; When: As needed; Reason: Fever > 102 F, Recheck today's complaints, Continuance of care, Re-evaluation by your physician. Follow up: Emergency Department; When: As needed; Reason: Fever > 102 F, Worsening of condition. Problem is new. Symptoms have improved. sg
[2019-11-16] MEDS ORDERED: HYDROCODONE/APAP 5/325 MG TAB ONE (04:16)
[2019-11-16 04:42] VITALS: BP 113/78; TEMP 97.2; O2SAT 99
== END 2019-11-16 04:31 | disposition home or self-care (01) ==
LOC: ER 03:02
DX: S90.822A Blister (nonthermal), left foot, initial encounter (principal); I10 Essential (primary) hypertension; E78.5 Hyperlipidemia, unspecified; I25.10 Atherosclerotic heart disease of native coronary artery without angina pectoris; Z79.82 Long term (current) use of aspirin
CPT/HCPCS: 99283